=== PATIENT | male | born 1955 | race Caucasian/White ===

== ENCOUNTER 2016-10-22 12:42 | Emergency (ER) | payer OTHER ==
[~2016-10-22] VITALS: Ht 177.8 cm; Wt 93.4 kg
[~2016-10-22 12:42] MED LIST: ASPIRIN EC81 M1 PO; CLOPIDOGREL75 MG PO; DULERA1 AR1 INH; LASIX20 M1 PO; NEURONTIN300 M1 PO; POTASSIUM CHLO20 ME2 PO; PRAVASTATIN SOD40 M1 PO; RANITIDINE HCL300 M1 PO
--- NOTE | 2016-10-22 12:49 | ED DYSPNEA/ASTHMA COMPLAINT ---
History of Present Illness General Chief Complaint: Dyspnea (COPD, CHF, Other) Stated Complaint: PT HAS ASTHMA NEEDS A BREATHING TREATMENT Source: patient Exam Limitations: no limitations Vital Signs & Intake/Output Vital Signs & Intake/Output Vital Signs Date Time Temp Pulse Resp B/P Pulse O2 O2 Flow FiO2 Ox Delivery Rate 10/22 1417 116 20 155/74 98 Room Air 10/22 1310 99 10/22 1304 97 10/22 1248 97.5 140 26 168/74 96 Room Air Allergies Coded Allergies: codeine (Mild, SHAKES 09/13/16) Reconcile Medications Albuterol Sulfate (Ventolin Hfa) 90 MCG HFA.AER.AD 2 PUF INH Q4-6 PRN PRN SHORTNESS OF BREATH Aspirin (Ecotrin*) 81 MG TABLET.DR 1 TAB PO EOD HEART/BLOOD (Reported) Benzonatate (Tessalon Perle) 100 MG CAPSULE 1 CAP PO TID PRN COUGH CLOPIDOGREL BISULFATE (Clopidogrel) 75 MG TAB 1 TAB PO DAILY BLOOD THINNER ( Reported) Furosemide (Lasix) 20 MG TABLET 1 TAB PO BID SWELLING X 5 DAYS Gabapentin (Neurontin) 300 MG CAPSULE 1 CAP PO TID NERVE PAIN (Reported) Methylprednisolone. (Medrol) 4 MG TAB.DS.PK 1 DP PO AD INFLAMMATION 6 on day 1 then reduce by one tablet daily until gone MOMETASONE/FORMOTEROL (Dulera 200 Mcg/5 Mcg Inhaler) 1 SHEEBA SHEEBA 2 PUF INH BID ASTHMA (Reported) Potassium Chloride 20 MEQ TAB.ER.PRT 1 TAB PO DAILY DUE TO THE FUROSEMIDE TAKE ONE PILL A DAY WHEN TAKING THE LASIX...FOLLOW UP WITH YOUR DOCTOR THIS WEEK. Pravastatin Sodium 40 MG TAB 1 TAB PO DAILY CHOLESTEROL (Reported) Ranitidine HCl 300 MG TABLET 1 TAB PO QPM GI (Reported) Triage Note: PT TO ED STATING "I NEED A BREATHING TREATMENT". STARTED FEELING SOB LAST NIGHT. TOOK INHALER WITH NO RELIEF. Triage Nurses Notes Reviewed? yes Onset: Gradual Duration: constant Timing: recent history Severity: moderate HPI: Patient is a 61-year-old male with a past medical history of asthma who presents emergency room with a one-day history of gradual onset of shortness of breath wheezing and nonproductive cough. Patient was evaluated yesterday by primary care doctor and was given a azithromycin for his symptoms. Patient has unrelenting wheezing and shortness of breath with at home inhaler. Patient is a every day smoker. Denies any fever, chills, chest pain and arm pain jaw pain nausea vomiting hemoptysis. Patient states that symptoms feel very similar to previous asthma attacks. Denies any history of admission or intubation. (NUNU ANNA) Past History Travel History Traveled to [place] past 21 day No Medical History Any Pertinent Medical History? 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 , Age 62. FATHER (HEART CONDITION). , Age 60+. Hx Contributory? No (NUNU ANNA) Review of Systems Review of Systems Constitutional: Reports: no symptoms. EENTM: Reports: no symptoms. Respiratory: Reports: see HPI, cough, wheezing. Cardiovascular: Reports: no symptoms. GI: Reports: no symptoms. Genitourinary: Reports: no symptoms. Musculoskeletal: Reports: no symptoms. Skin: Reports: no symptoms. Neurological/Psychological: Reports: no symptoms. Hematologic/Endocrine: Reports: no symptoms. Immunologic/Allergic: Reports: no symptoms. All Other Systems: Reviewed and Negative (NUNU ANNA) Physical Exam Physical Exam General Appearance: no apparent distress, alert Respiratory: chest non-tender, no respiratory distress, wheezing Comments: Well-developed well-nourished person in no acute distress HEENT: Normal EENT exam, extraocular motion intact, no nystagmus. Pupils equally round and reactive to light and accommodation. Nose is atraumatic. External auditory canal and Tympanic membranes clear. Pharynx normal. No swelling or edema. Neck: Supple, no lymphadenopathy, normal range of motion without pain or tenderness Back: Nontender, no CVA tenderness. Cardiovascular: Regular rate and rhythms no murmurs rubs or gallops, normal JVP Respiratory: Chest nontender. No respiratory distress.breath sounds clear to auscultation bilaterally Abdomen: Soft, nontender nondistended, no appreciable organomegaly. Normal bowel sounds. No ascites Extremity: No edema, no calf tenderness to palpation, normal and equal pulses. Neuro: Alert oriented x3, motor sensory normal, Skin: No appreciable rash on exposed skin, skin is warm and dry. Psych: Mood and affect is normal, memory and judgment is normal. Core Measures ACS in differential dx? No Severe Sepsis Present: No Septic Shock Present: No (NUNU ANNA) Progress Differential Diagnosis: asthma, AMI, bronchitis, costochondritis, CHF, COPD, musculoskeletal pain, pericarditis, pulmonary embolism, pneumonia, pneumothorax, rib fracture, unstable angina Plan of Care: Current Medications Sig/Lillie Start time Last Medication Dose Stop Time Status Admin Albuterol Sulfate 3 ML ONCE ONE 10/22 1300 UNVr (Proventil) 10/22 1301 Albuterol Sulfate 3 ML ONCE ONE 10/22 1300 UNVr (Proventil) 10/22 1301 Ipratropium Germfask 2.5 ML ONCE ONE 10/22 1300 UNVr (Atrovent) 10/22 1301 Patient currently is in no respiratory distress. Oxygen saturation 98%. Patient did have bilateral wheezing in which after medications of nebulizers were administered patient had complete resolution of wheezing and felt significantly improved. On discharge patient looks well oxygen saturation 97% room air and patient was given pulmonology referral and strongly advised to follow-up. Patient was also strongly advised to discontinue smoking. No concerns at this time of pneumonia however patient was previously prescribed antibiotics which I strongly advised patient to continue (NUNU ANNA) Initial ED EKG: none (NUNU ANNA) Departure Departure Disposition: HOME OR SELF CARE Condition: Stable Clinical Impression Primary Impression: Asthma attack Secondary Impressions: Upper respiratory infection Referrals: TIM IBRAHIM,Dank TERRY MD,ROSA LAST (PCP/Family) TRACEY IBRAHIM,ABIDA Additional Instructions: As discussed begin the prescription of Medrol Dosepak tomorrow as YOU received steroids in the emergency room today. Begin the prescription of Ventolin for shortness of breath and wheezing. Begin the prescription Tessalon Perles for cough. Please discontinue smoking. Tomorrow please follow up and establish bale coverer Dr. Flores or Dank Pérez MD for further evaluation and establishment of this provider. If symptoms worsen return to emergency room. Prescriptions are waiting your [facility] continue home medications as directed especially your recently prescribed antibiotic Departure Forms: Customer Survey General Discharge Information Prescriptions: Current Visit Scripts Albuterol Sulfate (Ventolin Hfa) 2 PUF INH Q4-6 PRN PRN SHORTNESS OF BREATH #1 INHAL Benzonatate (Tessalon Perle) 1 CAP PO TID PRN COUGH #21 CAP Methylprednisolone. (Medrol) 1 DP PO AD #1 DP 6 on day 1 then reduce by one tablet daily until gone (NUNU ANNA) PA/DATA ACQUISITION TECHNICIAN Co-Sign Statement Statement: ED Attending supervision documentation- [] I saw and evaluated the patient. I have also reviewed all the pertinent lab results and diagnostic results. I agree with the findings and the plan of care as documented in the PA's/DATA ACQUISITION TECHNICIAN's documentation. [x] I have reviewed the ED Record and agree with the PA's/DATA ACQUISITION TECHNICIAN's documentation. [] Additions or exceptions (if any) to the PAs/DATA ACQUISITION TECHNICIAN's note and plan are summarized below: [] (TREY MARTE DO) Critical Care Note Critical Care Note Critical Care Time: non-applicable (NUNU ANNA)
[2016-10-22] MEDS ORDERED: VENTOLIN HFA18 GM INH (14:04)
[2016-10-22] MEDS ORDERED: TESSALON PERLE100 M1 PO (14:04)
[2016-10-22] MEDS ORDERED: MEDROL4 M2 PO (14:04)
[2016-10-22 14:17] VITALS: BP 155/74
== END 2016-10-22 14:17 ==
LOC: ERH 12:42
DX: J45.909 Unspecified asthma, uncomplicated (principal); J06.9 Acute upper respiratory infection, unspecified; Z72.0 Tobacco use
CPT/HCPCS: 1263

== ENCOUNTER 2016-12-01 14:08 | Emergency (ER) | payer OTHER ==
[~2016-12-01] VITALS: Ht 177.8 cm; Wt 79.4 kg
[~2016-12-01 14:08] MED LIST changes: +MEDROL4 M2 PO; +TESSALON PERLE100 M1 PO; +VENTOLIN HFA18 GM INH
--- NOTE | 2016-12-01 14:38 | ED GENERAL ADULT ---
History of Present Illness General Chief Complaint: General Adult Stated Complaint: ?HIGH COUMADIN LEVEL Source: patient Exam Limitations: no limitations Vital Signs & Intake/Output Vital Signs & Intake/Output Vital Signs Date Time Temp Pulse Resp B/P Pulse O2 O2 Flow FiO2 Ox Delivery Rate 12/01 1729 97.4 76 18 118/64 97 Room Air 12/01 1439 Room Air 12/01 1422 97.4 89 20 119/77 96 Room Air ED Intake and Output 12/02 0000 12/01 1200 Intake Total Output Total Balance Patient 175 lb Weight Allergies Coded Allergies: codeine (Mild, SHAKES 12/01/16) Reconcile Medications Albuterol Sulfate (Ventolin Hfa) 90 MCG HFA.AER.AD 2 PUF INH Q4-6 PRN PRN SHORTNESS OF BREATH Gabapentin (Neurontin) 300 MG CAPSULE 1 CAP PO TID NERVE PAIN (Reported) Mometasone/Formoterol (Dulera 200 Mcg/5 Mcg Inhaler) 200 MCG-5 MCG/ACTUATION HFA.AER.AD 2 PUF INH BID ASTHMA (Reported) Polytrim (Polytrim Eye Drops) 10,000 UNIT-1 MG/ML DROPS 1 GTT OPH Q6 conjunctivitis Potassium Chloride 20 MEQ TAB.ER.PRT 1 TAB PO DAILY DUE TO THE FUROSEMIDE TAKE ONE PILL A DAY WHEN TAKING THE LASIX...FOLLOW UP WITH YOUR DOCTOR THIS WEEK. Pravastatin Sodium (Pravachol) 40 MG TABLET 1 TAB PO DAILY CHOLESTEROL ( Reported) Rivaroxaban (Xarelto) 15 MG TABLET 1 TAB PO ONCE BLOOD THINNER (Reported) Warfarin Sodium 5 MG TABLET 1 TAB PO DAILY BLOOD THINNER (Reported) Triage Note: TRIAGE: PT TO ER C/C, SENT TO ER FOR EVAL BY DR SHAHID BECAUSE "MY BLOODS TOO THIN". STATES HE HAS BEEN TAKING XARELTO AND WARFARIN FOR ?DVT. HAS BEEN TAKING DAILY FOR 1-2 WEEKS. STOPPED THEM BOTH YESTERDAY R/T S/S OF BLEEDING IN L EYE, INCREASED BRUISING AND "EVERYTIME I SNEEZED INSTEAD OF MUCOUS I'D HAVE BLOOD". Triage Nurses Notes Reviewed? yes Onset: Abrupt Duration: hour(s): (1) Injury Environment: home Severity: mild No Modifying Factors: none Associated Symptoms: DENIES HPI: This is a 61-year-old male referred to the ER by his doctor for high Coumadin level and low blood counts. Patient states he's been taking both with arousal and Coumadin for the past week for suspected DVT in his leg. His primary care doctor put him on 02 twice a day and Dr. Pedersen from vascular put him on Coumadin for possible clot in the leg. He states they did an ultrasound 2 weeks ago in the office but is unsure of the result. He states his legs in general have been swollen bilaterally in the right one has been weeping. History of previous vascular surgery done over a year and a half ago. He says they put a stent in his right leg and also went in to do the left side but it was fine. Patient denies any headache, blurry vision, Past History Travel History Traveled to [place] past 21 day No Medical History Any Pertinent Medical History? 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 , Age 62. FATHER (HEART CONDITION). , Age 60+. Hx Contributory? No Review of Systems Review of Systems Constitutional: Denies: chills, fever. EENTM: Reports: eye drainage (LEFT EYE/DISCHARGE). Respiratory: Denies: cough, short of breath, sputum production. Cardiovascular: Reports: peripheral edema. Denies: chest pain, palpitations, syncope. GI: Denies: abdominal pain, nausea, vomiting. Genitourinary: Reports: no symptoms. Musculoskeletal: Denies: back pain. Skin: Denies: erythema. Neurological/Psychological: Reports: no symptoms. Hematologic/Endocrine: Denies: bruising, bleeding, polyuria, polydipsia. Immunologic/Allergic: Denies: splenectomy. All Other Systems: Reviewed and Negative Physical Exam Physical Exam General Appearance: well developed/nourished, alert, awake, mild distress Head: atraumatic, normal appearance Eyes: Left: other (LEFT EYE INJECTION/TEARING). Ears, Nose, Throat: normal pharynx, normal ENT inspection, hearing grossly normal Neck: normal inspection, supple, full range of motion Respiratory: normal breath sounds, chest non-tender, no respiratory distress Cardiovascular: regular rate/rhythm Peripheral Pulses: 2+ radial (R), 2+ radial (L), 2+ dorsalis pedis (R), 2+ dorsalis pedis (L) Gastrointestinal: soft, non-tender Extremities: 2+ EDEMA B/L, RIGHT LEG ANTERIOR DRAINING WOUNDS Neurologic/Psych: awake, alert, oriented x 3 Skin: intact, normal color, warm/dry Core Measures ACS in differential dx? No CVA/TIA Diagnosis: No Severe Sepsis Present: No Septic Shock Present: No Progress Differential Diagnoses I considered the following diagnoses in my evaluation of the patient: [DVT, CELLULITIS, VENOUS INSUFFICIENCY ] Plan of Care: Orders Procedure Date/time Status PARTIAL THROMBOPLASTIN TIME 12/01 145 Complete PROTHROMBIN TIME 12/01 145 Complete COMPREHENSIVE METABOLIC PANEL 12/01 145 Complete CBC WITHOUT DIFFERENTIAL 12/01 145 Complete Laboratory Tests 12/01/16 1708: Anion Gap 12, Estimated GFR > 60, BUN/Creatinine Ratio 6.7 L, Glucose 89, Calcium 9.2, Total Bilirubin 0.5, AST 38, ALT 21, Alkaline Phosphatase 101, Total Protein 7.4, Albumin 3.4 L, Globulin 4.0, Albumin/Globulin Ratio 0.9 L 12/01/16 1707: PT 102.4 *H, INR 9.98 *H, APTT 75 H, CBC w Diff NO MAN DIFF REQ, RBC 4.70, MCV 95.2 H, MCH 31.5 H, RDW 15.2 H, MPV 7.5, Gran % 61.9, Lymphocytes % 26.8, Monocytes % 7.8, Eosinophils % 2.3, Basophils % 1.2, Absolute Granulocytes 5.4, Absolute Lymphocytes 2.3, Absolute Monocytes 0.7 H, Absolute Eosinophils 0.2, Absolute Basophils 0.1, PUBS MCHC 33.1 U/S POSITIVE FOR LEFT LEG DVT FROM CF TO POLITEAL. INR 9.9, NO ACTIVE SIGNS OF BLEEDING. LABS DISCUSSED WITH DR THOMAS. VITAMIN 5 MG PO ORDERED. HE WILL FOLLOW UP WITH INR TOMORROW FROM OUT PATIENT LAB AND DR THOMAS WILL DIRECTE HIS ANTICOAGULATION THERAPY. (DANIELLE IBRAHIM,FIOR) Diagnostic Imaging: Viewed by Me: Ultrasound. Discussed w/RAD: Ultrasound. Radiology Impression: PATIENT: MCKAY BECKMAN PRESENT AGE: 61 PATIENT ACCOUNT NO: [id number] : 59 LOCATION: [facility] ORDERING PHYSICIAN: FIOR MIKE MD SERVICE DATE: 12/01/16 EXAM TYPE: US - US-EXT BILAT VENOUS DOPPLER EXAMINATION: BILATERAL LOWER EXTREMITY VENOUS ULTRASOUND CLINICAL INFORMATION: Bilateral lower extremity edema. COMPARISON: None TECHNIQUE: Doppler spectral analysis and color flow Doppler imaging was performed of the lower extremities. Compression and augmentation maneuvers were performed. FINDINGS: RIGHT LOWER EXTREMITY: The right common femoral vein, greater saphenous vein takeoff, femoral vein, and popliteal vein are normally compressible with normal augmentation responses and phasic changes seen with Doppler imaging. The midcalf peroneal and posterior tibial veins are not adequately visualized. Prominent soft tissue swelling is seen in the calf. No popliteal cyst is seen. LEFT LOWER EXTREMITY: The left common femoral vein down to the popliteal vein demonstrates low-level internal echoes and is noncompressible with only small amounts of flow demonstrated with color Doppler imaging. Findings are consistent with a nonocclusive extensive deep venous thrombosis. Calf veins are partially visualized and visualized portions appear patent. IMPRESSION: 1. Near occlusive long segment deep venous thrombosis is seen in the left lower extremity, extending from the common femoral vein down to the popliteal vein. 2. No evidence of deep venous thrombosis in the right lower extremity. 3. Calf veins bilaterally are not adequately assessed. This critical result was discussed with Dr. Fior Mike 12/01/2016, 4:48 PM and it was ascertained that the content and urgency of this report was understood at the time of direct communication. DICTATED BY: MILTON SU MD DATE/TIME DICTATED:12/01/161618 DATA ENTRY ASSISTANT:BIJAN DATE/TIME TRANSCRIBED:1618 CONFIDENTIAL, DO NOT COPY WITHOUT APPROPRIATE AUTHORIZATION. < Electronically signed in Other Vendor System> SIGNED BY: MILTON SU MD 12/01/16 1652 Initial ED EKG: none Departure Departure Time of Disposition: 1808 Disposition: HOME OR SELF CARE Condition: Stable Clinical Impression Primary Impression: DVT (deep venous thrombosis) Referrals: TOYIN SHAHID APRN (PCP/Family) Additional Instructions: Do not take either warfarin or xarelto today. Check your INR in the lab tomorrow. Dr. Thomas's office will call you tomorrow to further instruct you on which medications tomorrow. Departure Forms: Customer Survey General Discharge Information Prescriptions: Current Visit Scripts Polytrim (Polytrim Eye Drops) 1 GTT OPH Q6 #10 ML Critical Care Note Critical Care Note Critical Care Time: 30-74 min
[2016-12-01] MEDS ORDERED: XARELTO15 M2 PO (14:45)
[2016-12-01] MEDS ORDERED: WARFARIN SODIUM5 M1 PO (14:47)
[2016-12-01] MEDS ORDERED: DULERA 200 MCG/13 GM INH (14:55)
[2016-12-01] MEDS ORDERED: PRAVACHOL40 M1 PO (14:56)
--- NOTE | 2016-12-01 16:53 | ULTRASOUND REPORT ---
EXAMINATION: BILATERAL LOWER EXTREMITY VENOUS ULTRASOUND CLINICAL INFORMATION: Bilateral lower extremity edema. COMPARISON: None TECHNIQUE: Doppler spectral analysis and color flow Doppler imaging was performed of the lower extremities. Compression and augmentation maneuvers were performed. FINDINGS: RIGHT LOWER EXTREMITY: The right common femoral vein, greater saphenous vein takeoff, femoral vein, and popliteal vein are normally compressible with normal augmentation responses and phasic changes seen with Doppler imaging. The midcalf peroneal and posterior tibial veins are not adequately visualized. Prominent soft tissue swelling is seen in the calf. No popliteal cyst is seen. LEFT LOWER EXTREMITY: The left common femoral vein down to the popliteal vein demonstrates low-level internal echoes and is noncompressible with only small amounts of flow demonstrated with color Doppler imaging. Findings are consistent with a nonocclusive extensive deep venous thrombosis. Calf veins are partially visualized and visualized portions appear patent. IMPRESSION: 1. Near occlusive long segment deep venous thrombosis is seen in the left lower extremity, extending from the common femoral vein down to the popliteal vein. 2. No evidence of deep venous thrombosis in the right lower extremity. 3. Calf veins bilaterally are not adequately assessed. This critical result was discussed with Dr. Fior Mike 12/01/2016, 4:48 PM and it was ascertained that the content and urgency of this report was understood at the time of direct communication.
[2016-12-01 17:18] LABS: ABSOLUTE BASOPHIL COUNT 0.1 /CUMM (0.0-0.2); ABSOLUTE EOSINOPHIL COUNT 0.2 /CUMM (0.0-0.7); ABSOLUTE GRANULOCYTE CT 5.4 /CUMM (1.4-6.5); ABSOLUTE LYMPH COUNT 2.3 /CUMM (1.2-3.4); ABSOLUTE MONOCYTE COUNT 0.7 /CUMM (0.10-0.60); BASOPHIL % 1.2 % (0.0-2.0); EOSINOPHIL % 2.3 % (0-5); GRANULOCYTE % 61.9 % (42.2-75.2); HEMATOCRIT 44.7 % (42-52); MEAN CORPUSCULAR HGB 31.5 PG (27.0-31.0); MEAN CORPUSCULAR HGB CONC 33.1 G/DL (33.0-37.0); MEAN CORPUSCULAR VOLUME 95.2 FL (80.0-94.0); MEAN PLATELET VOLUME 7.5 FL (7.4-10.4); PLATELET COUNT 252 /CUMM (130-400); RBC DISTRIBUTION WIDTH 15.2 % (11.5-14.5); WHITE BLOOD CELL COUNT 8.7 /CUMM (4.8-10.8)
[2016-12-01 17:29] VITALS: BP 118/64
[2016-12-01 17:30] LABS: PTT 75 SEC (25-37)
[2016-12-01 17:34] LABS: PT 102.4 SEC (9.4-12.5)
[2016-12-01] MEDS ORDERED: POLYTRIM EYE DR10 ML OPH (18:17)
== END 2016-12-01 18:18 ==
LOC: ERH 14:08
PROVIDERS: Emergency Medicine
DX: I82.412 Acute embolism and thrombosis of left femoral vein (principal); I82.432 Acute embolism and thrombosis of left popliteal vein
CPT/HCPCS: 93970

== ENCOUNTER 2017-02-02 17:37 | Inpatient (IN) | payer OTHER ==
[~2017-02-02] VITALS: Ht 177.8 cm; Wt 87.5 kg
[~2017-02-02 17:37] MED LIST changes: +DULERA 200 MCG/13 GM INH; +POLYTRIM EYE DR10 ML OPH; +PRAVACHOL40 M1 PO; +WARFARIN SODIUM5 M1 PO; +XARELTO15 M2 PO
--- NOTE | 2017-02-02 17:37 | NUR ---
BIBA FOR VOMITING COFFEE GROUND EMEMSIS AND TARRY STOOLS. PT ON COUMADIN FOR DVT. LAST INR CHECK 2 WEEKS AGO. SINCE THEN PT WITH ABNORMAL BRUISING AND BLEEDING ON SKIN ALL OVER BODY. AWAKE, ALERT, SKIN COOL AND DRY. DENIES PAIN OR SOB. TACHYCARDIC AT 101.
--- NOTE | 2017-02-02 17:44 | ED GI/GU/ABDOMINAL COMPLAINT ---
History of Present Illness General Chief Complaint: General Adult Stated Complaint: BIBA WITH GI BLEED Source: patient, old records, EMS Exam Limitations: no limitations Vital Signs & Intake/Output Vital Signs & Intake/Output Vital Signs Date Time Temp Pulse Resp B/P B/P Pulse O2 O2 Flow FiO2 Mean Ox Delivery Rate 02/08 0800 90 Nasal 100% Cannula 02/08 0750 93 95 02/08 0600 98 32 128/65 02/08 0558 98 92 02/08 0400 96 27 123/69 / 0400 96 BIPAP 75% 02/08 0307 94 91 / 0200 98 28 97/70 02/08 0103 101 91 05/15 0000 96.9 98 30 136/76 05/15 0000 92 Nasal 85% Cannula /15 0000 96.9 98 30 136/76 92 Nasal 85% Cannula /15 0000 92 Nasal 85% Cannula /14 2356 97 94 /14 2148 89 95 /14 2031 97.6 103 26 120/64 / 2031 95 Nasal 85% Cannula /14 1925 94 Nasal 85% Cannula 05/14 1615 94 Nasal 80% Cannula 05/14 1600 Nasal 85% Cannula 05/14 1600 97.5 97 20 110/54 05/14 1600 97.5 97 20 110/54 95 Nasal 85% Cannula 05/14 1450 94 Nasal 85% Cannula 05/14 1400 100 22 114/66 05/14 1200 Nasal 90% Cannula 05/14 1200 98.2 107 22 100/50 05/14 1138 88 Nasal 90% Cannula 05/14 1000 100 22 123/61 ED Intake and Output /15 0000 14 1200 Intake Total 1796 200 Output Total 1850 325 Balance -54 -125 Intake, IV 476 100 Intake, Oral 1320 100 Number 0 Bowel Movements Output, Urine 1850 325 Allergies Coded Allergies: codeine (Mild, SHAKES 12/01/16) Triage Nurses Notes Reviewed? yes HPI: Patient is a 61 year old male brought in by ambulance with complaint of GI bleed. 2 episodes of coffee ground emesis and approximately 5 episodes of black stool onset this morning. Patient currently on coumadin for treatment of DVT. Drinks 3-5 beers daily. Dyspnea with exertion today. Denies chest pain, abdominal pain, dyspepsia, previous upper endoscopy. (AIXA MCGEE) Reconcile Medications Albuterol Sulfate (Ventolin Hfa) 90 MCG HFA.AER.AD 2 PUF INH Q4-6 PRN PRN SHORTNESS OF BREATH Gabapentin (Neurontin) 300 MG CAPSULE 1 CAP PO TID NERVE PAIN (Reported) Mometasone/Formoterol (Dulera 200 Mcg/5 Mcg Inhaler) 200 MCG-5 MCG/ACTUATION HFA.AER.AD 2 PUF INH BID ASTHMA (Reported) Pravastatin Sodium (Pravachol) 40 MG TABLET 1 TAB PO DAILY CHOLESTEROL ( Reported) Ranitidine HCl 300 MG TABLET 1 TAB PO QPM GI (Reported) Warfarin Sodium (Jantoven) 7.5 MG TABLET 1 TAB PO DAILY BLOOD THINNER ( Reported) (DANIELLE IBRAHIM,ELKE) Past History Travel History Traveled to [place] past 21 day No Medical History Any Pertinent Medical History? 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 , Age 62. FATHER (HEART CONDITION). , Age 60+. Hx Contributory? No (AIXA MCGEE) Review of Systems Review of Systems Constitutional: Reports: weakness. Denies: chills, fever. EENTM: Reports: no symptoms. Respiratory: Reports: short of breath. Denies: cough. Cardiovascular: Reports: peripheral edema (chronic). Denies: chest pain. GI: Reports: see HPI. Denies: abdominal pain. Genitourinary: Reports: no symptoms. Musculoskeletal: Reports: no symptoms. Skin: Reports: no symptoms. Neurological/Psychological: Denies: headache, numbness. Hematologic/Endocrine: Reports: bruising, bleeding. Immunologic/Allergic: Denies: splenectomy. (AIXA MCGEE) Physical Exam Physical Exam General Appearance: alert, awake Head: atraumatic, normal appearance Eyes: Bilateral: other (pale conjunctiva). Ears, Nose, Throat, Mouth: hearing grossly normal, moist mucous membrane Neck: normal inspection, supple, full range of motion Respiratory: normal breath sounds, chest non-tender, no respiratory distress, lungs clear Cardiovascular: mild tachycardia, regular rhythm Peripheral Pulses: 2+ dorsalis pedis (R), 2+ dorsalis pedis (L) Gastrointestinal: soft, non-tender Rectal: minimal stool in the rectal vault, dark brown, heme positive Back: normal inspection, normal range of motion Extremities: 2+ bilateral lower extremity Neurologic/Psych: awake, alert, oriented x 3 Skin: pallor Core Measures ACS in differential dx? No Severe Sepsis Present: No Septic Shock Present: No (VAUGHN AMADO,AIXA) Physical Exam Peripheral Pulses: 2+ radial (R), 2+ radial (L) Neurologic/Psych: no motor/sensory deficits, awake, alert, oriented x 3 Skin: ecchymotic areas on extremities, chest/abdomen (DANIELLE IBRAHIM,ELKE) Progress Differential Diagnosis: upper vs lower gi bleed, alcohol withdrawal, electrolyte abnormality, demand ischemia Plan of Care: Orders Procedure Date/time Status XRY-PORTABLE CHEST XRAY 02/08 0840 Active ICU LAB BUNDLE 02/08 0500 Complete CBC WITHOUT DIFFERENTIAL 02/08 0500 Complete Skin Integrity Protocol 02/08 0225 Complete Nursing Misc 02/08 UNK Active Meyer, Insertion/Removal/Asses 02/07 1236 Active RT RE-EVALUATION 02/07 UNK Complete THERAPIST ORDERS 02/07 UNK Complete BIPAP 02/07 UNK Complete Nursing Misc 02/07 UNK Active Current Medications Sig/Lillie Start time Last Medication Dose Stop Time Status Admin Potassium Chloride 40 MEQ DAILY 02/08 1000 AC (K-Dur) Sodium Phosphate 15 mMol ONE ONE 02/08 0715 AC (SODIUM PHOSPHATE 02/08 1118 15mMol\5cc) Sodium Chloride 250 ML (Normal Saline 0.9%) Furosemide 100 MG Q20H 02/07 1230 AC 02/08 (Lasix) 0204 Sodium Chloride 100 ML (Normal Saline 0.9%) Albuterol Sulfate 3 ML EVERY 4 HRS/AWAKE 02/07 1200 AC 02/08 (Proventil) 0757 Folic Acid 1 MG DAILY 02/07 1000 AC 02/07 (Folic Acid) 0956 Multivitamins 1 TAB DAILY 02/07 1000 AC 02/07 (Theragran Vitamins) 0956 Thiamine HCl 50 MG DAILY 02/07 1000 AC 02/07 (Vitamin B1) 0956 Omeprazole 20 MG BID 02/06 2200 AC 02/07 (Prilosec) 2118 Ampicillin Sodium/ 1,500 MG Q6H 02/06 2100 AC 02/08 Sulbactam Sodium 0301 (Unasyn) Sodium Chloride 100 ML (Normal Saline 0.9%) Magnesium Oxide 400 MG BID 02/06 1000 AC 02/07 (Mag-Ox) 2118 Methylprednisolone 40 MG Q6 02/05 2359 AC 02/08 (Solumedrol) 0546 Benzonatate 100 MG TID 02/05 1745 AC 02/07 (Tessalon Capsule) 2118 Tiotropium [place] 1 PUF DAILY 02/05 1208 AC 02/07 (Spiriva) 0956 Pravastatin Sodium 40 MG 1700 02/04 1700 AC 02/07 (Pravachol) 1551 Budesonide/ 2 PUF BID 02/03 1000 AC 02/07 Formoterol Fumarate 2130 (Symbicort) Albuterol Sulfate 2 PUF Q4-6 PRN PRN 02/03 0645 AC 02/04 (Ventolin) 2320 Gabapentin 300 MG Q8 02/03 0620 AC 02/08 (Neurontin) 0546 Acetaminophen 650 MG Q6P PRN 02/03 2000 AC 02/07 (Tylenol) 1136 Acetaminophen 1,000 MG Q6P PRN 02/03 2000 AC (Ofirmev) Laboratory Tests 02/08/17 0520: Anion Gap 8, Estimated GFR > 60, Glucose 124 H, Calcium 7.3 L, Phosphorus 1.7 L, Magnesium 1.8, Total Bilirubin 0.8, AST 34, ALT 35, Albumin 2.4 L, CBC w Diff NO MAN DIFF REQ, RBC 3.19 L, MCV 83.8, MCH 26.5 L, RDW 19.5 H, MPV 9.0, Gran % 91.6 H, Lymphocytes % 3.1 L, Monocytes % 5.1, Eosinophils % 0.2, Basophils % 0 L, Absolute Granulocytes 10.1 H, Absolute Lymphocytes 0.3 L, Absolute Monocytes 0.6, Absolute Eosinophils 0, Absolute Basophils 0, PUBS MCHC 31.6 L 175: Discussed with and seen by Dr. Mike 1819: Discussed with Dr. Montero: patient needs admission, have medical team call him on admission. 183: Results of CBC discussed with patient. Consent for transfusion signed after discussion of risks and benefits. 3 units PRBC ordered. 1839: Dr. Mike discussed patient with Dr. Hill for ICU admission. Vitamin K and FFP ordered secondary to elevated INR. MOD made aware of patient. (AIXA MCGEE) Patient seen and examined with INGRIS Haines at bedside. Blood, vitamin K, FFP ordered. Patient is on a Protonix drip. He will remain nothing by mouth. Dr. Hill admitting. MOD paged. (ELKE MIKE MD) Initial ED EKG: sinus tachycardia, normal axis, normal intervals, no acute st/t wave abnormalities. Rhythm Strip: sinus tachycardia (AIXA MCGEE) Departure Departure Disposition: STILL A PATIENT Condition: Critical Clinical Impression Primary Impression: GI bleed Qualifiers: GI bleed type/associated pathology: unspecified gastrointestinal hemorrhage type Qualified Code: K92.2 - Gastrointestinal hemorrhage, unspecified Referrals: TOYIN SHAHID APRN (PCP/Family) Departure Forms: Customer Survey General Discharge Information (AIXA MCGEE) Departure Time of Disposition: 1842 Admission Note [facility] Documentation of Exam: Documentation of any treatments & extenuating circumstances including Concerns Regarding Discharge (functional status, medication knowledge or non-compliance, living conditions, etc.) that warrant an admission rather than observation: [ICU MONITOR, IV PROTONIX, FLUID RESUSSCITATION, TRANSFUSE BLOOD, FFP, VITAMIN K, GI CONSULT FOR POSSIBLE URGENT ENDOSCOPY] PA/ONCOLOGY NAVIGATOR Co-Sign Statement Statement: ED Attending supervision documentation- [X] I saw and evaluated the patient. I have also reviewed all the pertinent lab results and diagnostic results. I agree with the findings and the plan of care as documented in the PA's/ONCOLOGY NAVIGATOR's documentation. [X] I have reviewed the ED Record and agree with the PA's/ONCOLOGY NAVIGATOR's documentation. [] Additions or exceptions (if any) to the PAs/ONCOLOGY NAVIGATOR's note and plan are summarized below: [] (ELKE MIKE MD) Critical Care Note Critical Care Note Critical Care Time: 30-74 min (AIXA MCGEE)
[2017-02-02] MEDS ORDERED: RANITIDINE HCL300 M1 PO (18:01)
[2017-02-02] MEDS ORDERED: CLOPIDOGREL75 M1 PO (18:01)
[2017-02-02] MEDS ORDERED: JANTOVEN7.5 M1 PO (18:02)
--- NOTE | 2017-02-02 18:10 | NUR ---
DR DANIELLE PEREZ IN TO ASSESS PT. TWO IV LINES PLACED. PT DIFFICULT IV STICK DUE TO BRUISING/BLEEDING ON BOTH ARMS.
--- NOTE | 2017-02-02 18:15 | NUR ---
LABS DRAWN SST, BLUE, REYES. LAV AND PINK. IVF BOLUS STARTED
[2017-02-02 18:29] LABS: ABSOLUTE BASOPHIL COUNT 0.1 /CUMM (0.0-0.2); ABSOLUTE EOSINOPHIL COUNT 0 /CUMM (0.0-0.7); ABSOLUTE GRANULOCYTE CT 7.6 /CUMM (1.4-6.5); ABSOLUTE LYMPH COUNT 1.8 /CUMM (1.2-3.4); ABSOLUTE MONOCYTE COUNT 0.6 /CUMM (0.10-0.60); BASOPHIL % 0.9 % (0.0-2.0); EOSINOPHIL % 0 % (0-5); GRANULOCYTE % 75.1 % (42.2-75.2); MEAN CORPUSCULAR HGB 25.5 PG (27.0-31.0); MEAN CORPUSCULAR HGB CONC 31.8 G/DL (33.0-37.0); MEAN PLATELET VOLUME 8.1 FL (7.4-10.4); PLATELET COUNT 259 /CUMM (130-400); RBC DISTRIBUTION WIDTH 23.3 % (11.5-14.5); RED BLOOD CELL CT 2.09 /CUMM (4.70-6.10); WHITE BLOOD CELL COUNT 10.1 /CUMM (4.8-10.8)
[2017-02-02 18:32] LABS: HEMATOCRIT 16.7 % (42-52)
--- NOTE | 2017-02-02 18:33 | NUR ---
CRITICAL TEST RESULTS [id number] MCKAY BECKMAN 61 M TESTS AND RESULTS: HEMOGLOBIN 5.3 HEMATOCRIT 16.7 Results received and read back by: KAMALJIT SOLIS Results received date and time: 02/02/17 1834 The following provider was notified of the results, and read the results back: INGRIS MENDES Notified date and time: 02/02/17 at 1834
[2017-02-02 18:39] LABS: PT > 103.0 SEC (9.4-12.5)
--- NOTE | 2017-02-02 18:42 | NUR ---
LABS RESULTED. PT TO GET 3 UNITS PRBC AND PLASMA FOR LOW HCT AND ELEVATED INR. PT ON PROTONIX GTT
--- NOTE | 2017-02-02 18:46 | NUR ---
PT WITH BRUISING AND BLEELDING ON MULTIPLE SPOTS ALL OVER BODY, LEFT FORE ARM WITH SEVERE BRUISING. RIGHT UPPER ARM WITH PETECHIA THAT ARE DIFFUSE AND OOZING SMALL AMOUNT OF BLOOD. BLEEDING NOTED FROM A FEW SPOTS ON LEGS. PT WITH DRIED CRUSTED BANDAIDS OVER THESE SPOTS AND CONTINUES TO OOZE AROUND BANDAIDS
--- NOTE | 2017-02-02 18:52 | NUR ---
LAB IN TO DRAWN ABO CONFIRMATION. BLEEDING/BRUISES ON BILATERAL ARMS DRESSED WITH XERFORM AND GAUZE WRAPS
--- NOTE | 2017-02-02 19:07 | NUR ---
HOUSE STAFF IN TO SEE PT
--- NOTE | 2017-02-02 19:46 | History & Physical ---
JEREMIAS CALLAHAN 02/02/171945: General Information and HPI MD Statement: I have seen and personally examined MCKAY BECKMAN and documented this H&P. The patient is a 61 year old M who presented with a patient stated chief complaint of GI bleed. Source of Information: patient, EMS Exam Limitations: no limitations History of Present Illness: Patient is a 61-year-old gentleman with a past medical history significant for asthma, DVT(on Coumadin), dyslipidemia, alcohol abuse presented to the ED through ambulance for the evaluation of coffee-ground emesis with dark stools. Patient was diagnosed with right approximately DVT in August 2015 , apparently had a vascular surgery at that time(? thrombectomy/stent -scar to his right leg without any IVC filter placement. He was prescribed, xarelto by his primary care physician and was also started on Coumadin by his vascular surgeon(who apparently did not know that patient was also taking xeralto). Patient took xeralto and Coumadin both for almost 1-2 weeks. Then he started having nosebleeds associated with skin bruises. He was sent to the ER by his primary care physician, Doppler venous ultrasound revealed left-sided DVT. INR was supratherapeutic, Coumadin was held .He was again seen by his primary care physician stopped the Xarelto. Last INR was checked about 3 weeks ago that was normal. Coumadin was continued afterwards. Patient mentioned that he has been abnormal bleeding through superficial cuts on the skin and bruising for almost 2-3 weeks now .Today he had 2 episodes of coffee-ground emesis associated with 5 episodes of dark stools,. Denied any nausea/abdominal discomfort. Denied any diarrhea or constipation. The symptoms are associated with slight shortness of breath without any chest discomfort or palpitations. Denied any dizziness or lightheadedness. Patient was concerned about his symptoms and called EMS. Patient never had endoscopy or colonoscopy before. Of the note, patient has a history of chronic alcohol abuse drinks about 2-3 beers on daily basis. He was hospitalized in [facility] 2013 for alcohol abuse and withdrawal was on Ativan drip in the ICU. Patient is a current every day. smoker denied any illicit drug use In the ED patient was found to be severely anemic with an H&H of 5.3/16 without active signs of complete. INR was supratherapeutic, more than 10. Allergies/Medications Allergies: Coded Allergies: codeine (Mild, SHAKES 12/01/16) Home Med list Albuterol Sulfate (Ventolin Hfa) 90 MCG HFA.AER.AD 2 PUF INH Q4-6 PRN PRN SHORTNESS OF BREATH Gabapentin (Neurontin) 300 MG CAPSULE 1 CAP PO TID NERVE PAIN (Reported) Mometasone/Formoterol (Dulera 200 Mcg/5 Mcg Inhaler) 200 MCG-5 MCG/ACTUATION HFA.AER.AD 2 PUF INH BID ASTHMA (Reported) Pravastatin Sodium (Pravachol) 40 MG TABLET 1 TAB PO DAILY CHOLESTEROL ( Reported) Ranitidine HCl 300 MG TABLET 1 TAB PO QPM GI (Reported) Warfarin Sodium (Jantoven) 7.5 MG TABLET 1 TAB PO DAILY BLOOD THINNER ( Reported) Past History Travel History Traveled to [place] past 21 day No Medical History Neurological: peripheral neuropathy EENT: NONE Cardiovascular: hyperlipidemia Respiratory: asthma Gastrointestinal: NONE Hepatic: NONE Renal: NONE Musculoskeletal: NONE Psychiatric: alcohol dependence Endocrine: NONE Blood Disorders: DVT Cancer(s): NONE 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 , Age 62. FATHER (HEART CONDITION). , Age 60+. Psychosocial History ETOH Use: heavy use Review of Systems Review of Systems Constitutional: Reports: chills. Denies: diaphoresis, fever, malaise. EENTM: Denies: blurred vision, double vision, visual changes. Cardiovascular: Denies: chest pain, edema, orthopena. Respiratory: Reports: short of breath. Denies: cough, hemoptysis, orthopnea. GI: Reports: melena, vomiting. Genitourinary: Denies: discharge, dysuria, frequency. Musculoskeletal: Denies: back pain, gout, joint pain. Skin: Denies: cysts, change in skin color, change in hair/nails. Neurological/Psychological: Denies: ataxia, cognitive dysfunction, confusion, dementia. Hematologic/Endocrine: Denies: bruising, bleeding, polyuria. Exam & Diagnostic Data Last 24 Hrs of Vital Signs/I&O Vital Signs Date Time Temp Pulse Resp B/P B/P Pulse O2 O2 Flow FiO2 Mean Ox Delivery Rate 05/09 2028 99.0 117 22 99/54 99 Room Air 02/02 1907 98.4 104 18 124/67 99 Nasal 2.0L Cannula 02/02 1845 Nasal 2.0L Cannula 02/02 1745 99.4 101 18 113/60 100 Nasal 2.0L Cannula Physical Exam General Appearance Alert, Oriented X3 Skin No Rashes, No Breakdown Skin Temp/Moisture Exam: Warm/Dry Sepsis Skin Exam (color): Pale Neck Supple, No JVD, No thryomegaly Lymphatic Axillary nl, Cervical nl Cardiovascular Regular Rate, Normal S1, Normal S2 Lungs Clear to Auscultation Abdomen Normal Bowel Sounds, Soft, No Tenderness, No Hepatospenomegaly Neurological Normal Speech, Strength at 5/5 X4 Ext, Normal Tone Extremities No Clubbing, No Cyanosis, No Edema Vascular Normal Pulses Last 24 Hrs of Labs/Rahat: Laboratory Tests 02/02/17 1810: Anion Gap 13, Estimated GFR > 60, BUN/Creatinine Ratio 18.3, Glucose 99, Calcium 8.0 L, Magnesium 1.9, Total Bilirubin 0.6, AST 42, ALT 22, Alkaline Phosphatase 72, Troponin I 0.01, Total Protein 5.6 L, Albumin 2.5 L, Globulin 3.1, Albumin /Globulin Ratio 0.8 L, PT > 103.0 *H, INR > 10.0 *H, CBC w Diff NO MAN DIFF REQ , RBC 2.09 L, MCV 80.0, MCH 25.5 L, RDW 23.3 H, MPV 8.1, Gran % 75.1, Lymphocytes % 18.2 L, Monocytes % 5.8, Eosinophils % 0, Basophils % 0.9, Absolute Granulocytes 7.6 H, Absolute Lymphocytes 1.8, Absolute Monocytes 0.6, Absolute Eosinophils 0, Absolute Basophils 0.1, PUBS MCHC 31.8 L, Serum Alcohol 35.0 Diagnostic Data EKG Results Sinus tachycardia heart rate in the range of 100s without any significant ST/T changes Assessment/Plan Assessment: This is a is a 61-year-old gentleman with a past medical history significant for asthma, DVT(on Coumadin, was on xeralto before), dyslipidemia, alcohol abuse presented to the ED through ambulance for the evaluation of coffee-ground emesis with dark stools. In the ED patient was found to be severely anemic with an H&H of 5.3/16 without active signs of complete. INR was supratherapeutic, more than 10. Vitals admission: Temperature 98.4, pulse 101, respiratory rate 18, blood pressure 113/60, Saturating more than 92% on 2 L. Assessment and plan: 1. Acute blood loss anemia (likely upper GI bleed )in the setting of supratherapeutic INR-sever coagulopathy from coumadin : * We'll admit the patient to critical care unit * We'll transfuse him 2 units of packed RBC and then recheck the CBC at around midnight. * At the same time we'll transfuse him fresh frozen plasma and recheck INR . * Will change GI consult has been obtained as per recommendations, we'll keep the patient nothing by mouth for now, hold off INR should be around 3. Patient will likely have endoscopy tomorrow once the INR normalizes. * We will do serial CBC and INR, goal of hematocrit is 21. * Obtain Doppler venous ultrasound in the morning .Obtain vascular surgery consult in the a.m. for possible thrombectomy and consideration of IVC filter. * Check orthostats * Continue with IV hydration * Watch for any hemodynamic stability. * Aspiration precautions * Will notify GI in case overt signs of bleed 2. History of significant alcohol abuse: * Will give one banana bag * Urine toxicology's. * We will monitor him on CIWA scale. 3. History of asthma * Continue TRC nebs and home inhalers * DVT prophylaxis with Alps [id number] pain controlled with Tylenol Patient is full code As Ranked By This Provider Problem List: 1. GI bleed Qualifiers GI bleed type/associated pathology: unspecified gastrointestinal hemorrhage type Qualified Code: K92.2 - Gastrointestinal hemorrhage, unspecified Core Measures/Miscellaneous Acute Coronary Syndrome ACS Diagnosis: No Cerebrovascular Accident CVA/TIA Diagnosis: No Congestive Heart Failure CHF Diagnosis: No Venous Thromboembolism VTE Risk Factors: Acute medical illness, Age > 40 [facility] prophylaxis d/t: No contraindications No VTE Pharm Prophylaxis d/t: Blood coag disorder VTE Diagnosis: No VTE Type: NONE VTE Confirmed by (Test): NONE Severe Sepsis Severe Sepsis Present: No Septic Shock Septic Shock Present: No Miscellaneous Documentation Attending Case Discussed With: NIKOS BOCANEGRA MDJohnathon Primary Care Physician: TOYIN SHAHID APRN Patient sees these Specialists Dr. Hernandez Level of Patient Care: Critical Care (CRI) Resident Review Statement Resident Statement: examined this patient, discussed with internet application developer, agreed with internet application developer DALJIT IBRAHIM, DWAYNE 02/02/172000: Attending MD Review Statement Attending Statement Attending MD Statement: examined this patient, discuss w/resident/PA/BIOCHEMISTRY TEACHER, agreed w/resident/PA/BIOCHEMISTRY TEACHER Attending Assessment/Plan: 61 yo M with smoker, h/o asthma, dyslipidemia, alcohol abuse, alcohol withdrawal seizure, neuropathy, last admitted to [place] November 2012 for alcohol withdrawal seizure requiring ICU admission and ativan drip, comes in today with c/o multiple episodes of coffee-ground emesis and black tarry stools. c/o dyspnea on exertion but attributes it to this asthma. c/o easy bruising over bilateral arms and forehead. Denies chest pain, palpitations, lightheadedness or abdominal pain. He was diagnosed with right LE DVT (2014) and underwent ?thrombectomy/?stent ( huge scar to his right leg, no IVC filter). He was not on AC then. He was seen in ER (Aug 2016) for LE edema (weeping lesions to right de santiago), placed on lasix. Outpatient ultrasound was ?inconclusive, his PCP placed him on Xarelto and Vascular Dr. De Santiago initiated coumadin. Patient took both for 1-2 weeks but developed nosebleed/ bruises, seen in ER again on December 01, noted to have INR 9.98. LE doppler showed near occlusive DVT in LLE from common femoral to popliteal vein. He was asked to recheck INR and resume coumadin but discontinue xarelto and plavix/aspirin. He continues to drink couple of beers atleast 3 times a week and denies recent detox or withdrawal seizure. He has never seen a GI doctor or undergone EGD or colonoscopy. He denies use of NSAIDs/aspirin/motrin. He denies heartburn, hematochesia or BRBPR. No further bleeding episodes while in the ER. Vitals: Tmax 99.4, tachycardic to 110, BP 124/67 --> 99/54, sats 99% RA. Exam: AAO, pallor+, no respiratory distress, Chest b/l clear, Heart S1S2 regular, tachycardic, Abd soft, distended, nontender, LE: large scar noted to right LE medial aspect, right de santiago erythema with scab (chronic), trace pedal edema. Rectal exam done in ER: dark brown heme positive stool. Labs: WBC 10.1, H/H 5.3/ 16.7 (14.8/44.7 on 12/01/16), INR >10, Na 131, bicarb 16, LFTs normal, trop neg. UA clear. Utox neg. Alcohol 35. EKG: Sinus tachycardia, Qtc 454. Echo (2007): EF > 60%. 1. Acute blood loss anemia in the setting of upper GI bleeding and warfarin induced coagulopathy. ICU admission, vitals Q1 hour, aspiration precautions, guaiac all stools, check orthostats, transfuse 2 units PRBCs to a goal Hct of > 21, reverse INR with vitamin K and FFPs to goal INR < 3.0. IV pantoprazole drip, keep NPO, IV fluids, monitor hemodynamic status. GI (Dr. Montero) consulted, will notify him of any changes overnight. Possible plan for EGD in AM. [facility] consult (Dr. Pérez seen patient). Serial EKG and troponin. 2. Recurrent DVT. Now with supratherapeutic INR and GI bleed while on coumadin. Will obtain LE dopplers in AM and consult Vascular for eventual need for ? thrombectomy vs. IVC filter. 3. Alcohol dependence. Monitor for withdrawal. CIWA protocol, banana bag, NPO, IV ativan PRN per CIWA. Smoking cessation counseling, nicotine patch. DVT ppx Alps. Full code. TTS > 55 mins
--- NOTE | 2017-02-02 19:46 | Cons- CRCU ---
JEREMIAS CALLAHAN 02/02/17 1946: General Information and HPI Consulting Request Date of Consult: 02/02/17 Reason for Consult: GI BLEED Source of Information: patient Exam Limitations: no limitations History of Present Illness: Patient is a 61-year-old gentleman with a past medical history significant for asthma, DVT(on Coumadin), dyslipidemia, alcohol abuse presented to the ED through ambulance for the evaluation of coffee-ground emesis with dark stools. Patient was diagnosed with right approximately DVT in August 2015 , apparently had a vascular surgery at that time(? thrombectomy/stent -scar to his right leg without any IVC filter placement. He was prescribed, xarelto by his primary care physician and was also started on Coumadin by his vascular surgeon(who apparently did not know that patient was also taking xeralto). Patient took xeralto and Coumadin both for almost 1-2 weeks. Then he started having nosebleeds associated with skin bruises. He was sent to the ER by his primary care physician, Doppler venous ultrasound revealed left-sided DVT. INR was supratherapeutic, Coumadin was held .He was again seen by his primary care physician stopped the Xarelto. Last INR was checked about 3 weeks ago that was normal. Coumadin was continued afterwards. Patient mentioned that he has been abnormal bleeding through superficial cuts on the skin and bruising for almost 2-3 weeks now .Today he had 2 episodes of coffee-ground emesis associated with 5 episodes of dark stools,. Denied any nausea/abdominal discomfort. Denied any diarrhea or constipation. The symptoms are associated with slight shortness of breath without any chest discomfort or palpitations. Denied any dizziness or lightheadedness. Patient was concerned about his symptoms and called EMS. Patient never had endoscopy or colonoscopy before. Of the note, patient has a history of chronic alcohol abuse drinks about 2-3 beers on daily basis. He was hospitalized in [facility] 2013 for alcohol abuse and withdrawal was on Ativan drip in the ICU. Patient is a current every day. smoker denied any illicit drug use In the ED patient was found to be severely anemic with an H&H of 5.3/16 without active signs of complete. INR was supratherapeutic, more than 10. Allergies/Medications Allergies: Coded Allergies: codeine (Mild, SHAKES 12/01/16) Home Med List: Albuterol Sulfate (Ventolin Hfa) 90 MCG HFA.AER.AD 2 PUF INH Q4-6 PRN PRN SHORTNESS OF BREATH Gabapentin (Neurontin) 300 MG CAPSULE 1 CAP PO TID NERVE PAIN (Reported) Mometasone/Formoterol (Dulera 200 Mcg/5 Mcg Inhaler) 200 MCG-5 MCG/ACTUATION HFA.AER.AD 2 PUF INH BID ASTHMA (Reported) Pravastatin Sodium (Pravachol) 40 MG TABLET 1 TAB PO DAILY CHOLESTEROL ( Reported) Ranitidine HCl 300 MG TABLET 1 TAB PO QPM GI (Reported) Warfarin Sodium (Jantoven) 7.5 MG TABLET 1 TAB PO DAILY BLOOD THINNER ( Reported) Review of Systems Review of Systems Constitutional: Reports: chills, weakness. EENTM: Denies: blurred vision, double vision. Cardiovascular: Denies: chest pain, edema, orthopena. Respiratory: Denies: cough, hemoptysis, orthopnea. GI: Denies: bloating, constipation. Genitourinary: Denies: discharge, frequency, hematuria. Skin: Reports: change in skin color. Neurological/Psychological: Reports: anxiety. Denies: confusion, depressed, dementia. Hematologic/Endocrine: Reports: bruising, bleeding. 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 , Age 62. FATHER (HEART CONDITION). , Age 60+. Psychosocial History ETOH Use: heavy use Exam & Diagnostic Data Last 24 Hrs of Vital Signs/I&O Vital Signs Date Time Temp Pulse Resp B/P B/P Pulse O2 O2 Flow FiO2 Mean Ox Delivery Rate 02/03 2028 99.0 117 22 99/54 99 Room Air 02/02 1907 98.4 104 18 124/67 99 Nasal 2.0L Cannula 02/02 1845 Nasal 2.0L Cannula 02/02 1745 99.4 101 18 113/60 100 Nasal 2.0L Cannula Physical Exam General Appearance: well developed/nourished, no apparent distress, mild distress Head: atraumatic, normal appearance Eyes: Bilateral: normal appearance. 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 Cranial Nerves: normal hearing, normal speech, PERRL Skin: ecchymosis Last 48 Hrs of Labs/Rahat: Laboratory Tests 02/03/17 0625: Anion Gap 4 L, Estimated GFR > 60, Glucose 91, Calcium 7.2 L, Phosphorus 1.8 L, Magnesium 1.8, Total Bilirubin 1.1, AST 24, ALT 30, Troponin I 0.21 *H, Albumin 2.1 L, PT 44.3 *H, INR 4.28 *H, CBC w Diff NO MAN DIFF REQ, RBC 2.32 L , MCV 80.7, MCH 26.5 L, RDW 19.1 H, MPV 7.7, Gran % 58.5, Lymphocytes % 31.9, Monocytes % 8.2, Eosinophils % 0.7, Basophils % 0.7, Absolute Granulocytes 2.9, Absolute Lymphocytes 1.6, Absolute Monocytes 0.4, Absolute Eosinophils 0, Absolute Basophils 0, PUBS MCHC 32.8 L 02/03/17 0600: Troponin I Cancelled 02/03/17 0105: Troponin I 0.10, PT 52.7 *H, INR 5.10 *H 02/02/17 2308: CBC w Diff NO MAN DIFF REQ, RBC 2.02 L, MCV 79.3 L, MCH 25.7 L, RDW 20.1 H, MPV 8.3, Gran % 65.2, Lymphocytes % 25.5, Monocytes % 8.0, Eosinophils % 0.1, Basophils % 1.2, Absolute Granulocytes 4.5, Absolute Lymphocytes 1.8, Absolute Monocytes 0.6, Absolute Eosinophils 0, Absolute Basophils 0.1, PUBS MCHC 32.5 L 02/02/17 2215: Urine Opiates Screen < 100.00, Methadone Screen < 40, Barbiturate Screen < 60, Ur Phencyclidine Scrn < 6.00, Amphetamines Screen 138, U Benzodiazepines Scrn < 85, Urine Cocaine Screen < 50, Urine Cannabis Screen < 5.00, Urine Color YEL, Urine Clarity CLEAR, Urine pH 5.5, Ur Specific [place] 1.025, Urine Protein NEG, Urine Ketones NEG, Urine Nitrite NEG, Urine Bilirubin NEG, Urine Urobilinogen 0.2, Ur Leukocyte Esterase NEG, Ur Microscopic EXAM NOT REQUIRED, Urine Hemoglobin NEG, Urine Glucose NEG 02/02/17 1810: Anion Gap 13, Estimated GFR > 60, BUN/Creatinine Ratio 18.3, Glucose 99, Calcium 8.0 L, Magnesium 1.9, Total Bilirubin 0.6, AST 42, ALT 22, Alkaline Phosphatase 72, Troponin I 0.01, Total Protein 5.6 L, Albumin 2.5 L, Globulin 3.1, Albumin /Globulin Ratio 0.8 L, PT > 103.0 *H, INR > 10.0 *H, CBC w Diff NO MAN DIFF REQ , RBC 2.09 L, MCV 80.0, MCH 25.5 L, RDW 23.3 H, MPV 8.1, Gran % 75.1, Lymphocytes % 18.2 L, Monocytes % 5.8, Eosinophils % 0, Basophils % 0.9, Absolute Granulocytes 7.6 H, Absolute Lymphocytes 1.8, Absolute Monocytes 0.6, Absolute Eosinophils 0, Absolute Basophils 0.1, PUBS MCHC 31.8 L, Serum Alcohol 35.0 Assessment/Plan Impression/Plan: This is a is a 61-year-old gentleman with a past medical history significant for asthma, DVT(on Coumadin, was on xeralto before), dyslipidemia, alcohol abuse presented to the ED through ambulance for the evaluation of coffee-ground emesis with dark stools. In the ED patient was found to be severely anemic with an H&H of 5.3/16 without active signs of complete. INR was supratherapeutic, more than 10. Vitals admission: Temperature 98.4, pulse 101, respiratory rate 18, blood pressure 113/60, Saturating more than 92% on 2 L. Assessment and plan: 1. 1. Acute blood loss anemia (likely upper GI bleed )in the setting of supratherapeutic INR-sever coagulopathy from coumadin : * We'll admit the patient to critical care unit * We'll transfuse him 2 units of packed RBC and then recheck the CBC at around midnight. * At the same time we'll transfuse him fresh frozen plasma and recheck INR . * Will change GI consult has been obtained as per recommendations, we'll keep the patient nothing by mouth for now, goal INR should be around 3. Patient will likely have endoscopy tomorrow once the INR normalizes. * We will do serial CBC and INR, goal of h/h : 04/16 * Obtain Doppler venous ultrasound in the morning .Obtain vascular surgery consult in the a.m. for possible thrombectomy and consideration of IVC filter. * Check orthostats * Continue with IV hydration * Watch for any hemodynamic stability. * Aspiration precautions * Will notify GI in case overt signs of bleed 2. History of significant alcohol abuse: * Will give one banana bag * Urine toxicology's. * We will monitor him on CIWA scale. * Watch for any withdrawl seizures 3. History of asthma * Continue TRC nebs and home inhalers * DVT prophylaxis with Alps [id number] pain controlled with Tylenol Patient is full code Consult Acknowledgment - Thank you for your consult request. TIM IBRAHIM,Dank ROGERS 02/02/172009: General Information and HPI Consulting Request Date of Consult: 02/02/17 Requested By: Dr. Hill Reason for Consult: CRCU management Source of Information: patient, old records Exam Limitations: no limitations Allergies/Medications Current Medications: Current Medications Sig/Lillie Start time Last Medication Dose Route Stop Time Status Admin Acetaminophen 650 MG Q6P PRN 02/03 2000 AC PO Acetaminophen 1,000 MG Q6P PRN 02/03 2000 AC IV Gabapentin 0 .STK-MED ONE 02/02 1939 DC PO Gabapentin 300 MG ONCE ONE 02/02 1930 DC 02/02 PO 02/02 193 1941 Pantoprazole Sodium 0 .STK-MED ONE 02/02 1824 DC IV Pantoprazole Sodium 40 MG Q5H 02/02 1800 UNVr 02/02 Sodium Chloride 100 ML IV 1828 Pantoprazole Sodium 40 MG ONCE ONE 02/02 1745 DC 02/02 IV 02/02 1746 1828 Phytonadione 0 .STK-MED ONE 02/02 1853 DC .ROUTE Phytonadione 10 MG ONCE ONE 02/02 1845 DC 02/02 IM 02/02 1846 1853 Sodium Chloride 1,000 ML Q8H 02/03 2000 AC IV Sodium Chloride 1,000 ML BOLUS ONE 02/02 1800 DC 02/02 IV 02/02 1859 1828 Assessment/Plan Other Findings/Comments: I have personally seen and examined the patient, and agree with the resident's assessment and plan as above. Briefly, the patient is a 61-year-old male with a past medical history significant for alcohol abuse, hyperlipidemia, and asthma. He also has a history of recurrent DVTs for which she's been taking anticoagulation. The patient was taking both warfarin and Xarelto which were prescribed by 2 different physicians. The patient does not have an IVC filter. He is being followed by vascular surgery for his DVTs and chronic lower extremity swelling. He was brought in by ambulance for having coffee ground emesis and tarry stools. The patient has also noticed abnormal bruising and bleeding over his skin. The patient was tachycardic upon presentation but normotensive. He waited and found to have a hemoglobin of 5.3 with an INR greater than 10. 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 He was evaluated by GI. The current plan is to monitor the patient in the critical care unit, transfuse 2 units of packed red blood cells along with FFP to reduce the INR, and monitor for bleeding. Labs will be repeated periodically throughout the night to ensure improvement The patient will be monitored on the CIWA scale and receive multivitamin, thiamine and folate. We will consult vascular surgery for recommendations regarding the possibility of a thrombectomy and consideration for an IVC filter. Lower extremity Dopplers will be repeated. GI will be notified immediately if there is any evidence of acute bleeding. We will continue close monitoring in the ICU. I discussed the plan of care with the housestaff and asked them to contact me should they have any issues or concerns. Consult Acknowledgment - Thank you for your consult request.
--- NOTE | 2017-02-02 20:01 | NUR ---
PT HAS BED ASSIGNMENT 111. RN NOTIFIED.
--- NOTE | 2017-02-02 20:05 | Admission Certification ---
Admission Certification Certification Statement - As attending physician, I certify that at the time of - admission, based on clinical presentation, severity of - symptoms, need for further diagnostic testing and - therapeutic interventions, and risk of adverse outcomes - without in-hospital treatment, in my clinical assessment, - this patient requires an acute hospital stay for a minimum - of two nights or longer. I have also considered psychsocial - factors such as support system, advanced age, financial - issues, cognitive issues, and failed out-patient treatments, - past re-admission history, safety of patient, and lack of - compliance as applicable. Specific rationale supporting this admission is: Acute blood loss anemia, upper GI bleeding, warfarin induced coagulopathy, requires ICU level of care.
--- NOTE | 2017-02-02 20:53 | NUR ---
PT RECIEVED FIRST UNIT OF FFP AT 2001. FIRST UNIT OF [facility] HUNG PRIOR TO PT GOING TO ICU. PT SEEN BY DR PRATT IN ED
--- NOTE | 2017-02-02 21:36 | Cons- Gastroenterology ---
General Information and HPI Consulting Request Date of Consult: 02/02/17 Requested By: DALJIT IBRAHIM,GEORGE Reason for Consult: GI bleed Source of Information: patient History of Present Illness: 61-year-old male with significant peripheral vascular disease/peripheral arterial disease, followed by vascular surgery. He is anticoagulated. He presents with acute onset black emesis, and black stool. He denies lightheadedness/dizziness, fainting, chest pain, shortness of breath. Prior to this, he had no significant heartburn, indigestion, dysphagia, nausea, abdominal pain, altered bowel habits, blood per rectum. He has not had screening colonoscopy, nor any need for upper endoscopy. He has been found to be significantly anemic, and with highly supratherapeutic INR. He had, and multiple bruises all over his body. He drinks alcohol daily. There is no known liver disease. Allergies/Medications Allergies: Coded Allergies: codeine (Mild, SHAKES 12/01/16) Home Med List: Albuterol Sulfate (Ventolin Hfa) 90 MCG HFA.AER.AD 2 PUF INH Q4-6 PRN PRN SHORTNESS OF BREATH Apixaban (Eliquis) 5 MG TABLET 1 TAB PO BID blood clots Apixaban (Eliquis) 5 MG TABLET 1 TAB PO BID blood clots From 02/18/17-02/25/17 take 10 mg twice a day 02/26/17 onwards take 5 mg twice a day Aspirin (Aspirin*) 81 MG TAB.CHEW 81 MG PO DAILY heart health Gabapentin (Neurontin) 300 MG CAPSULE 1 CAP PO TID NERVE PAIN (Reported) Mometasone/Formoterol (Dulera 200 Mcg/5 Mcg Inhaler) 200 MCG-5 MCG/ACTUATION HFA.AER.AD 2 PUF INH BID ASTHMA (Reported) Omeprazole 20 MG CAPSULE.DR 40 MG PO DAILY AC GI BLEED Pravastatin Sodium (Pravachol) 40 MG TABLET 1 TAB PO DAILY CHOLESTEROL ( Reported) Ranitidine HCl 300 MG TABLET 1 TAB PO QPM GI (Reported) Current Medications: Current Medications Sig/Lillie Start time Last Medication Dose Route Stop Time Status Admin Acetaminophen 650 MG Q6P PRN 02/03 2000 AC PO Acetaminophen 1,000 MG Q6P PRN 02/03 2000 AC IV Cyanocobalamin/ 1 BAG ONCE ONE 05/09 2030 AC Thiamine/Pyridoxine IV 02/03 429 Dextrose/Water 1,000 ML Gabapentin 0 .STK-MED ONE 02/02 1939 DC PO Gabapentin 300 MG ONCE ONE 02/02 1930 DC 02/02 PO 02/02 1931 194 Ondansetron HCl 0 .STK-MED ONE 02/02 2019 DC .ROUTE Ondansetron HCl 4 MG ONCE ONE 02/02 2015 DC IV 02/02 2016 Pantoprazole Sodium 0 .STK-MED ONE 02/02 1824 DC IV Pantoprazole Sodium 40 MG Q5H 02/02 1800 AC 02/02 Sodium Chloride 100 ML IV 1828 Pantoprazole Sodium 40 MG ONCE ONE 02/02 1745 DC / IV 02/02 174 1828 Phytonadione 0 .STK-MED ONE 02/02 1853 DC .ROUTE Phytonadione 10 MG ONCE ONE 02/02 1845 DC 02/02 IM 02/02 184 1853 Sodium Chloride 1,000 ML Q8H 02/02 2000 AC IV Sodium Chloride 1,000 ML BOLUS ONE 02/02 1800 DC 02/02 IV 02/02 185 1828 Past History Travel History Traveled to [place] past 21 day No Medical History Neurological: peripheral neuropathy EENT: NONE Cardiovascular: hyperlipidemia Respiratory: asthma Gastrointestinal: NONE Hepatic: NONE Renal: NONE Musculoskeletal: NONE Psychiatric: alcohol dependence Endocrine: NONE Blood Disorders: DVT Cancer(s): 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 , Age 62. FATHER (HEART CONDITION). , Age 60+. Psychosocial History ETOH Use: heavy use Review of Systems Review of Systems Constitutional: Denies: fever, malaise. EENTM: Reports: epistaxis. Denies: icterus. Cardiovascular: Reports: edema. Denies: chest pain, syncope. Respiratory: Denies: cough, short of breath. GI: Reports: see HPI. Genitourinary: Denies: dysuria, hematuria. Musculoskeletal: Denies: muscle stiffness, neck pain. Skin: Reports: lesions (bruises and cuts). Denies: jaundice. Neurological/Psychological: Denies: cognitive dysfunction, headache. Hematologic/Endocrine: Reports: bruising, bleeding. Denies: polyuria. Exam & Diagnostic Data Vital Signs and I&O Vital Signs Date Time Temp Pulse Resp B/P B/P Pulse O2 O2 Flow FiO2 Mean Ox Delivery Rate 02/03 2028 99.0 117 22 99/54 99 Room Air 02/02 1907 98.4 104 18 124/67 99 Nasal 2.0L Cannula 02/02 1845 Nasal 2.0L Cannula 02/02 1745 99.4 101 18 113/60 100 Nasal 2.0L Cannula Physical Exam: Well-developed well-nourished, in no apparent distress. Alert and oriented. Skin with pallor; numerous ecchymoses and cuts. No jaundice or stigmata of chronic liver disease. No scleral icterus. Dry black blood in oropharynx but no other lesion. No thyromegaly or neck mass. No adenopathy. Heart regular rhythm. Lungs clear. Abdomen is soft and nondistended, and obese, with normal bowel sounds; no tenderness, mass or palpable hepatosplenomegaly. Right leg with long scar; bilateral 1+ edema. Results Pertinent Lab Results: Laboratory Tests 02/02 1810 Chemistry Sodium (137 - 145 mmol/L) 131 L Potassium (3.5 - 5.1 mmol/L) 4.1 Chloride (98 - 107 mmol/L) 103 Carbon Dioxide (22 - 30 mmol/L) 16 L Anion Gap (5 - 16) 13 BUN (9 - 20 mg/dL) 11 Creatinine (0.7 - 1.2 mg/dL) 0.6 L Estimated GFR (>60 ml/min) > 60 BUN/Creatinine Ratio (7 - 25 %) 18.3 Glucose (65 - 99 mg/dL) 99 Calcium (8.4 - 10.2 mg/dL) 8.0 L Magnesium (1.6 - 2.3 mg/dL) 1.9 Total Bilirubin (0.2 - 1.3 mg/dL) 0.6 AST (17 - 59 U/L) 42 ALT (21 - 72 U/L) 22 Alkaline Phosphatase (< 127 U/L) 72 Troponin I (<0.11 ng/ml) 0.01 Total Protein (6.3 - 8.2 g/dL) 5.6 L Albumin (3.5 - 5.0 g/dL) 2.5 L Globulin (1.9 - 4.2 gm/dL) 3.1 Albumin/Globulin Ratio (1.1 - 2.2 %) 0.8 L Coagulation PT (9.4 - 12.5 SEC) > 103.0 *H INR (0.90 - 1.17) > 10.0 *H Hematology CBC w Diff NO MAN DIFF REQ WBC (4.8 - 10.8 /CUMM) 10.1 RBC (4.70 - 6.10 /CUMM) 2.09 L Hgb (14.0 - 18.0 G/DL) 5.3 *L Hct (42 - 52 %) 16.7 *L MCV (80.0 - 94.0 FL) 80.0 MCH (27.0 - 31.0 PG) 25.5 L RDW (11.5 - 14.5 %) 23.3 H Plt Count (130 - 400 /CUMM) 259 MPV (7.4 - 10.4 FL) 8.1 Gran % (42.2 - 75.2 %) 75.1 Lymphocytes % (20.5 - 51.1 %) 18.2 L Monocytes % (1.7 - 9.3 %) 5.8 Eosinophils % (0 - 5 %) 0 Basophils % (0.0 - 2.0 %) 0.9 Absolute Granulocytes (1.4 - 6.5 /CUMM) 7.6 H Absolute Lymphocytes (1.2 - 3.4 /CUMM) 1.8 Absolute Monocytes (0.10 - 0.60 /CUMM) 0.6 Absolute Eosinophils (0.0 - 0.7 /CUMM) 0 Absolute Basophils (0.0 - 0.2 /CUMM) 0.1 PUBS MCHC (33.0 - 37.0 G/DL) 31.8 L Toxicology Serum Alcohol (<10 MG/DL) 35.0 Assessment/Plan Assessment/Recommendations: Severe anemia in patient with acute onset hematemesis (black, not fresh blood)/ melena. Despite the severity of the anemia, the patient is not hypotensive or lightheaded, and his MCV is lower than previously. This would suggest a chronic GI bleed with superimposed acute bleed. This is in the setting of severe coagulopathy on Coumadin. There is no evidence of chronic liver disease; the amount of alcohol consumption is not clear. Recommendations * Nothing by mouth, IV fluids * Transfuse 2 units of packed red blood cells, and recheck CBC. Maintain hemoglobin/hematocrit at 7/21. * Aim to achieve INR less than 3 with vitamin K and fresh frozen plasma * IV PPI * EGD once INR in the therapeutic range * Alcohol withdrawal precautions * Vascular surgery consult regarding recurrent DVTs Consult Acknowledgment - Thank you for your consult request.
--- NOTE | 2017-02-02 22:03 | NUR ---
ADMITTED FROM ER ALERT AND ORIENTED REFUSING SHEARER URINAL GIVEN TO PATIENT BLOOD INFUSING ORDERED WITH NO PROBLEMS NOTED PROTONIX GTT INFUSING ORDERED NO FURTHER VOMITING NOTED VSS SEE FLOWSHEET
[2017-02-02 23:00] VITALS: BP 96/55
[2017-02-02 23:26] LABS: ABSOLUTE BASOPHIL COUNT 0.1 /CUMM (0.0-0.2); ABSOLUTE EOSINOPHIL COUNT 0 /CUMM (0.0-0.7); ABSOLUTE GRANULOCYTE CT 4.5 /CUMM (1.4-6.5); ABSOLUTE LYMPH COUNT 1.8 /CUMM (1.2-3.4); ABSOLUTE MONOCYTE COUNT 0.6 /CUMM (0.10-0.60); BASOPHIL % 1.2 % (0.0-2.0); EOSINOPHIL % 0.1 % (0-5); GRANULOCYTE % 65.2 % (42.2-75.2); MEAN CORPUSCULAR HGB 25.7 PG (27.0-31.0); MEAN CORPUSCULAR HGB CONC 32.5 G/DL (33.0-37.0); MEAN CORPUSCULAR VOLUME 79.3 FL (80.0-94.0); MEAN PLATELET VOLUME 8.3 FL (7.4-10.4); PLATELET COUNT 181 /CUMM (130-400); RBC DISTRIBUTION WIDTH 20.1 % (11.5-14.5); RED BLOOD CELL CT 2.02 /CUMM (4.70-6.10); WHITE BLOOD CELL COUNT 6.9 /CUMM (4.8-10.8)
[2017-02-03] VITALS (12 sets, daily range): BP systolic 92–127; BP diastolic 50–81
[2017-02-03 01:32] LABS: PT 52.7 SEC (9.4-12.5)
[2017-02-03 06:40] LABS: ABSOLUTE BASOPHIL COUNT 0 /CUMM (0.0-0.2); ABSOLUTE EOSINOPHIL COUNT 0 /CUMM (0.0-0.7); ABSOLUTE GRANULOCYTE CT 2.9 /CUMM (1.4-6.5); ABSOLUTE LYMPH COUNT 1.6 /CUMM (1.2-3.4); ABSOLUTE MONOCYTE COUNT 0.4 /CUMM (0.10-0.60); BASOPHIL % 0.7 % (0.0-2.0); EOSINOPHIL % 0.7 % (0-5); GRANULOCYTE % 58.5 % (42.2-75.2); MEAN CORPUSCULAR HGB 26.5 PG (27.0-31.0); MEAN CORPUSCULAR HGB CONC 32.8 G/DL (33.0-37.0); MEAN CORPUSCULAR VOLUME 80.7 FL (80.0-94.0); MEAN PLATELET VOLUME 7.7 FL (7.4-10.4); PLATELET COUNT 156 /CUMM (130-400); RBC DISTRIBUTION WIDTH 19.1 % (11.5-14.5); RED BLOOD CELL CT 2.32 /CUMM (4.70-6.10); WHITE BLOOD CELL COUNT 4.9 /CUMM (4.8-10.8)
[2017-02-03 06:52] LABS: HEMATOCRIT 18.8 % (42-52)
[2017-02-03 06:57] LABS: PT 44.3 SEC (9.4-12.5)
--- NOTE | 2017-02-03 07:02 | PN- Resident CRCU ---
Subjective HPI/CRCU Issues: Mr. Flores seen and evaluated at bedside this AM. He was resting comfortably in bed receiving a unit of blood. He endorses slight lethargy and wheezing but otherwise offered no complaints. He is aware he is scheduled for EGD once his INR becomes therapeutic. 24 Hour Events: No overnight telemetry events noted. Vital signs: T 98.3-99.1, HR 89-103, RR 16-29, O2 94-99% on room air transitioned to 1 L NC for comfort, SBP 81-112, DBP 50-61. Objective Vital Signs & I&O Last 8 Hrs of Vitals and I&O: T 98.3-99.1, HR 89-103, RR 16-29, O2 94-99% on room air transitioned to 1 L NC for comfort, SBP 81-112, DBP 50-61. Exam General Appearance: well developed/nourished, no apparent distress, alert, awake , comfortable Head: atraumatic, normal appearance Ears, Nose, Throat: normal pharynx, hearing grossly normal Neck: normal inspection, supple, full range of motion Respiratory: Wheezing in bilateral lung kulkarni Cardiovascular: regular rate/rhythm Gastrointestinal: Abdomen slightly distended without tenderness to palpation of four quadrants. Extremities: normal inspection, Slight bilateral lower extremity edema Cranial Nerves: normal hearing, normal speech, PERRL Skin: warm/dry Nutrition Nutrition: NPO Current Medications: Current Medications Sig/Lillie Start time Last Medication Dose Route Stop Time Status Admin Acetaminophen 650 MG Q6P PRN 02/03 2000 AC PO Acetaminophen 1,000 MG Q6P PRN 02/03 2000 AC IV Albuterol Sulfate 3 ML Q4P PRN 02/03 0815 AC 02/03 INH 0817 Albuterol Sulfate 2 PUF Q4-6 PRN PRN 02/03 0645 AC INH Budesonide/ 2 PUF BID 02/03 1000 AC 02/03 Formoterol Fumarate INH 1013 Cyanocobalamin/ 1 BAG ONCE ONE 02/02 2030 DC 02/02 Thiamine/Pyridoxine IV 02/03 0429 2259 Dextrose/Water 1,000 ML Furosemide 20 MG ONCE ONE 02/03 0830 DC 02/03 IV 02/03 0831 0824 Gabapentin 300 MG Q8 02/03 0620 AC 02/03 PO 0808 Gabapentin 0 .STK-MED ONE 02/02 1939 DC PO Gabapentin 300 MG ONCE ONE 02/02 1930 DC 05/ PO 02/02 193 194 Melatonin 3 MG .STK-MED ONE 02/03 0116 DC PO 02/03 0117 Melatonin 3 MG ONCE ONE 02/02 2230 DC 02/03 PO 02/02 2231 0115 Ondansetron HCl 0 .STK-MED ONE 02/02 2019 DC .ROUTE Ondansetron HCl 4 MG ONCE ONE 02/02 2015 DC IV 02/02 2016 Pantoprazole Sodium 0 .STK-MED ONE 02/02 1824 DC IV Pantoprazole Sodium 40 MG Q5H 02/02 1800 AC 02/03 Sodium Chloride 100 ML IV 1014 Pantoprazole Sodium 40 MG ONCE ONE 02/02 1745 DC 02/02 IV 02/02 1746 1828 Phytonadione 0 .STK-MED ONE 02/02 185 DC .ROUTE Phytonadione 10 MG ONCE ONE 02/02 1845 DC 02/02 IM 02/02 1846 1853 Potassium Chloride 10 MEQ Q1H 02/03 0915 DC 02/03 IV 02/03 1116 1229 Potassium Chloride 20 MEQ ONCE ONE 02/03 0845 CAN IV 02/03 0846 Sodium Chloride 1,000 ML Q8H 02/02 2000 AC 02/03 IV 0448 Sodium Chloride 1,000 ML BOLUS ONE 02/02 1800 DC 02/02 IV 02/02 1859 1828 EKG Findings: ST, HR in the 100s, no significant ST/T changes. Impression/Plan Impression/Problem List Impression: Mr. Flores is a pleasant 61 year old male with PMH asthma, dyslipidemia, alcohol abuse, previous alcohol withdrawl seizure, and DVT x 2 (2014, August 2016) currently on coumadin who presented with chief complaint of several episodes of coffe-ground emesis and dark, tarry stools without overt blood/ clots. Associated symptoms at time of presentation included easy bleeding/ brusing of his extremities and dyspnea on exertion. Of note, patient was started on anticoagulation with his second episode of DVT in August of 2016. He was inadvertently placed on both xarelto by his PCP and Coumadin by Dr. De Santiago, vascular surgery, until 1-2 weeks later this was noted and his PCP discontinued xarelto. In the ED: Vital signs showed a Tmax of 994. HR 117, RR 22, BP 99/54 and O2 saturation of 99% on room air. Labs were significant for H&H 5.3/16.7, Plt 259, Na 131, K 4.1, HCO3 16, Cre 0.6 , Ca 8, Albumin 2.5, INR >10. EKG showed sinus tachycardia and no significant ST/T wave changes. Patient is currently admitted to the ICU and the following is the management: 1. Acute blood loss anemia secondary to upper GI bleed in the setting of supratherapeutic INR * GI consult placed, instructed to keep patient NPO as once his INR is <3 he will be taken for EGD * Continue to hold coumadin * IVF with NS at 125 cc/h * Continue to transfuse PRBC to bring Hgb/Hct >7/21, trend CBC frequently * Reverse INR with vitamin K and FFP, goal INR <3 to perform EGD * Continue IV protonix drip * Strict Is/Os 2. Alcohol abuse * CIWA scoring * Banana bag daily * Ativan PRN per CIWA protocol 3. History of DVT * Follow up bilateral lower extremity venous dopplers * Hold coumadin due to acute blood loss anemia * Follow up vascular surgery consult in regards to ?need for IVC filter 4. Increasing shortness of breath in the setting of asthma * Consideration for fluid overload in the setting of frequent transfusions * Continue albuterol inhaler PRN for shortness of breath * Patient was noted to have shortness of breath and bilateral wheezing on exam, given 20 mg IV lasix x 1 * Consideration for COPD as patient has been been smoking for 20 years, 1/2 PPD * Tobacco cessation counseling provided * F/U echocardiogram 5. Chronic pain * Continue neurontin 300 mg PO Q8 * PO tylenol for mild pain, IV tylenol for moderate pain FULL CODE DVTP: ALPS NPO pending EGD Mild-moderate pain pathway Problem List: 1. Asthma 2. ETOH ABUSE 3. DVT (deep venous thrombosis) 4. GI bleed Pain Ratin Tomorrow's Labs & Rationales: CBC (acute blood loss anemia) ICU bundle (hypokaelmia) INR Plan DVT/Prophylaxis: mechanical (no pharm 2/2 acute blood loss)
--- NOTE | 2017-02-03 07:27 | PN- Gastroenterology ---
Assessment/Plan Assessment/Recommendations: GI bleed in the setting of supratherapeutic INR. The patient has received 2 units of packed red blood cells, and hematocrit is still suboptimal. Blood pressure is borderline. He is only received 2 units of FFP, and INR still high. Recommendations * Nothing by mouth, IV fluids * Transfuse 2 more units of packed red blood cells, and recheck CBC. Maintain hemoglobin/hematocrit at greater than 7/21. * Aim to achieve INR less than 3 with vitamin K and fresh frozen plasma * Continue IV PPI * EGD once INR in the therapeutic range * Alcohol withdrawal precautions * Vascular surgery consult regarding recurrent DVTs Subjective Subjective: Had one large black bowel movement overnight. No nausea, vomiting, abdominal pain. Objective Vital Signs and I&Os Vital Signs Date Time Temp Pulse Resp B/P B/P Pulse O2 O2 Flow FiO2 Mean Ox Delivery Rate 02/03 0600 70 20 127/81 02/03 0400 98.3 90 21 96/54 02/03 0400 95 Room Air 02/03 0200 98.6 93 22 96/60 02/03 0000 98.6 96 19 97/53 02/03 0000 98.6 96 19 97/53 97 Room Air 02/03 0000 97 Room Air 02/02 2300 99.1 103 18 96/55 02/02 2028 99.0 117 22 99/54 99 Room Air 02/02 1907 98.4 104 18 124/67 99 Nasal 2.0L Cannula 02/02 1845 Nasal 2.0L Cannula 02/02 1745 99.4 101 18 113/60 100 Nasal 2.0L Cannula Intake & Output 02/03 1600 02/03 0400 02/02 1600 02/02 0400 02/01 1600 02/01 0400 Intake Total 1488 1515 Output Total 250 Balance 1488 1265 Intake, Blood 600 350 Product Intake, IV 888 1165 Intake, Oral 0 0 Output, Urine 250 Patient 193 lb Weight Weight Reported by Patient Measurement Method Physical Exam: Alert and oriented. Sclera anicteric. Skin warm and dry. Abdomen soft, mildly distended, without tenderness. Bilateral lower extremity edema. Current Medications: Current Medications Sig/Lillie Start time Last Medication Dose Route Stop Time Status Admin Acetaminophen 650 MG Q6P PRN 02/03 2000 AC PO Acetaminophen 1,000 MG Q6P PRN 02/03 2000 AC IV Albuterol Sulfate 2 PUF Q4-6 PRN PRN 02/03 0645 AC INH Budesonide/ 2 PUF BID 02/03 1000 AC Formoterol Fumarate INH Cyanocobalamin/ 1 BAG ONCE ONE 02/02 2030 DC 02/02 Thiamine/Pyridoxine IV 02/03 042 2259 Dextrose/Water 1,000 ML Gabapentin 300 MG Q8 02/03 0620 AC PO Gabapentin 0 .STK-MED ONE 02/02 193 DC PO Gabapentin 300 MG ONCE ONE 02/02 193 DC 02/02 PO 02/02 193 1941 Melatonin 3 MG ONCE ONE 02/02 2230 DC 02/03 PO 02/02 2231 0115 Ondansetron HCl 0 .STK-MED ONE 02/02 2019 DC .ROUTE Ondansetron HCl 4 MG ONCE ONE 02/02 2015 DC IV 02/02 2016 Pantoprazole Sodium 0 .STK-MED ONE 02/02 1824 DC IV Pantoprazole Sodium 40 MG Q5H 02/02 1800 AC 02/03 Sodium Chloride 100 ML IV 0443 Pantoprazole Sodium 40 MG ONCE ONE 02/02 1745 DC 02/02 IV 02/02 1746 1828 Phytonadione 0 .STK-MED ONE 02/02 1853 DC .ROUTE Phytonadione 10 MG ONCE ONE 02/02 1845 DC 02/02 IM 02/02 1846 1853 Sodium Chloride 1,000 ML Q8H 02/02 2000 AC 02/03 IV 0448 Sodium Chloride 1,000 ML BOLUS ONE 02/02 1800 DC 02/02 IV 02/02 1859 1828 Results Pertinent Lab Results: Laboratory Tests 02/03 02/03 02/03 0625 0600 0105 Chemistry Sodium Pending Potassium Pending Chloride Pending Carbon Dioxide Pending Anion Gap Pending BUN Pending Creatinine Pending Glucose Pending Calcium Pending Phosphorus Pending Magnesium Pending Total Bilirubin Pending AST Pending ALT Pending Troponin I (<0.11 ng/ml) Pending Cancelled 0.10 Albumin Pending Coagulation PT (9.4 - 12.5 SEC) 44.3 *H 52.7 *H INR (0.90 - 1.17) 4.28 *H 5.10 *H Hematology CBC w Diff NO MAN DIFF REQ WBC (4.8 - 10.8 /CUMM) 4.9 RBC (4.70 - 6.10 /CUMM) 2.32 L Hgb (14.0 - 18.0 G/DL) 6.2 *L Hct (42 - 52 %) 18.8 *L MCV (80.0 - 94.0 FL) 80.7 MCH (27.0 - 31.0 PG) 26.5 L RDW (11.5 - 14.5 %) 19.1 H Plt Count (130 - 400 /CUMM) 156 MPV (7.4 - 10.4 FL) 7.7 Gran % (42.2 - 75.2 %) 58.5 Lymphocytes % (20.5 - 51.1 %) 31.9 Monocytes % (1.7 - 9.3 %) 8.2 Eosinophils % (0 - 5 %) 0.7 Basophils % (0.0 - 2.0 %) 0.7 Absolute Granulocytes (1.4 - 6.5 /CUMM) 2.9 Absolute Lymphocytes (1.2 - 3.4 /CUMM) 1.6 Absolute Monocytes (0.10 - 0.60 /CUMM) 0.4 Absolute Eosinophils (0.0 - 0.7 /CUMM) 0 Absolute Basophils (0.0 - 0.2 /CUMM) 0 PUBS MCHC (33.0 - 37.0 G/DL) 32.8 L 02/02 02/02 2308 2215 Hematology CBC w Diff NO MAN DIFF REQ WBC (4.8 - 10.8 /CUMM) 6.9 RBC (4.70 - 6.10 /CUMM) 2.02 L Hgb (14.0 - 18.0 G/DL) 5.2 *L Hct (42 - 52 %) 16.0 *L MCV (80.0 - 94.0 FL) 79.3 L MCH (27.0 - 31.0 PG) 25.7 L RDW (11.5 - 14.5 %) 20.1 H Plt Count (130 - 400 /CUMM) 181 MPV (7.4 - 10.4 FL) 8.3 Gran % (42.2 - 75.2 %) 65.2 Lymphocytes % (20.5 - 51.1 %) 25.5 Monocytes % (1.7 - 9.3 %) 8.0 Eosinophils % (0 - 5 %) 0.1 Basophils % (0.0 - 2.0 %) 1.2 Absolute Granulocytes (1.4 - 6.5 /CUMM) 4.5 Absolute Lymphocytes (1.2 - 3.4 /CUMM) 1.8 Absolute Monocytes (0.10 - 0.60 /CUMM) 0.6 Absolute Eosinophils (0.0 - 0.7 /CUMM) 0 Absolute Basophils (0.0 - 0.2 /CUMM) 0.1 PUBS MCHC (33.0 - 37.0 G/DL) 32.5 L Toxicology Urine Opiates Screen (>2000 NG/ML) < 100.00 Methadone Screen (>300 NG/ML) < 40 Barbiturate Screen (>200 NG/ML) < 60 Ur Phencyclidine Scrn (>25 NG/ML) < 6.00 Amphetamines Screen (>1000 NG/ML) 138 U Benzodiazepines Scrn (>200 NG/ML) < 85 Urine Cocaine Screen (>300 NG/ML) < 50 Urine Cannabis Screen (>50 NG/ML) < 5.00 Urines Urine Color (YEL,AMB,STR) YEL Urine Clarity (CLEAR) CLEAR Urine pH (5.0 - 8.0) 5.5 Ur Specific [place] (1.001 - 1.035) 1.025 Urine Protein (NEG,<30 MG/DL) NEG Urine Ketones (NEG) NEG Urine Nitrite (NEG) NEG Urine Bilirubin (NEG) NEG Urine Urobilinogen (0.1 - 1.0 EU/dl) 0.2 Ur Leukocyte Esterase (NEG) NEG Ur Microscopic EXAM NOT REQUIRED Urine Hemoglobin (NEG) NEG Urine Glucose (N MG/DL) NEG 02/02 1810 Chemistry Sodium (137 - 145 mmol/L) 131 L Potassium (3.5 - 5.1 mmol/L) 4.1 Chloride (98 - 107 mmol/L) 103 Carbon Dioxide (22 - 30 mmol/L) 16 L Anion Gap (5 - 16) 13 BUN (9 - 20 mg/dL) 11 Creatinine (0.7 - 1.2 mg/dL) 0.6 L Estimated GFR (>60 ml/min) > 60 BUN/Creatinine Ratio (7 - 25 %) 18.3 Glucose (65 - 99 mg/dL) 99 Calcium (8.4 - 10.2 mg/dL) 8.0 L Magnesium (1.6 - 2.3 mg/dL) 1.9 Total Bilirubin (0.2 - 1.3 mg/dL) 0.6 AST (17 - 59 U/L) 42 ALT (21 - 72 U/L) 22 Alkaline Phosphatase (< 127 U/L) 72 Troponin I (<0.11 ng/ml) 0.01 Total Protein (6.3 - 8.2 g/dL) 5.6 L Albumin (3.5 - 5.0 g/dL) 2.5 L Globulin (1.9 - 4.2 gm/dL) 3.1 Albumin/Globulin Ratio (1.1 - 2.2 %) 0.8 L Coagulation PT (9.4 - 12.5 SEC) > 103.0 *H INR (0.90 - 1.17) > 10.0 *H Hematology CBC w Diff NO MAN DIFF REQ WBC (4.8 - 10.8 /CUMM) 10.1 RBC (4.70 - 6.10 /CUMM) 2.09 L Hgb (14.0 - 18.0 G/DL) 5.3 *L Hct (42 - 52 %) 16.7 *L MCV (80.0 - 94.0 FL) 80.0 MCH (27.0 - 31.0 PG) 25.5 L RDW (11.5 - 14.5 %) 23.3 H Plt Count (130 - 400 /CUMM) 259 MPV (7.4 - 10.4 FL) 8.1 Gran % (42.2 - 75.2 %) 75.1 Lymphocytes % (20.5 - 51.1 %) 18.2 L Monocytes % (1.7 - 9.3 %) 5.8 Eosinophils % (0 - 5 %) 0 Basophils % (0.0 - 2.0 %) 0.9 Absolute Granulocytes (1.4 - 6.5 /CUMM) 7.6 H Absolute Lymphocytes (1.2 - 3.4 /CUMM) 1.8 Absolute Monocytes (0.10 - 0.60 /CUMM) 0.6 Absolute Eosinophils (0.0 - 0.7 /CUMM) 0 Absolute Basophils (0.0 - 0.2 /CUMM) 0.1 PUBS MCHC (33.0 - 37.0 G/DL) 31.8 L Toxicology Serum Alcohol (<10 MG/DL) 35.0
--- NOTE | 2017-02-03 07:59 | NUR ---
2300 REC'D PT IN BED. A/O X3. CIWA 0-2. FIDGETY IN BED BUT STATES IT'S HIS NEUROPATHY. WILL INFORM MD BRYANT. HOME MEDS TO RESTART. SR ON THE MONITOR HR 90'S, SBP RANGING 90-100'S CORRELATING TO BOTH CUFFS. ON RA POX >95%, LS CLEAR & DIMINISHED AT THE BASES. HAS NOT VOIDED SINCE 2200 URINAL AT BEDSIDE. REMAINS NPO FOR NOW. ON PROTONIX GTT. NO C/O PAIN VOICED. SKIN TEARS TO TIFFANY LOWER FOREARM. WRAPPED W/KERLIX/DRSG. PETECHIAE & BRUISES ALL OVER THE BODY. 0025 H/H 5/16 & INR 5.10. HUNG 2ND UNITS OF FFP & PRBC. 0430 BOTH UNITS OF FFP COMPLETE @0220 & PRBC @0415. NO REACTION NOTED. 0600 PT HAD INC OF LG LOOSE LIQUID STOOL BLACK +VE & URINE MIXED. COMPLETE BED BATH GIVEN. PT C/O SOB. LS EW. INFORMED DR. ODALYS BRYANT. PT'S HOME MEDS RESTARTED. 0730 H/H 6.2 & INR 4.28. S/B DR. REDD ARAUZ. STATES NEEDS FOR BLOOD PRODUCTS. UPDATED ON PT'S STATUS TO DR. VILLEGAS ORDERED [facility].
--- NOTE | 2017-02-03 09:15 | PN- CRCU ---
Subjective HPI/Critical Care Issues: The patient is awake and alert. He reports having one melanotic stool early this morning. He denies hematemesis. He is currently on his third unit of packed red blood cells. He received 2 units of fresh frozen plasma with vitamin K. The patient's blood pressure has been in the 90s to low 100s however he has not had significant hypotension. He has good urine output. He complains of increased wheezing and a congested cough. There is no report of fever, chills, chest pain or abdominal pain. Objective Current Medications: Current Medications Sig/Lillie Start time Last Medication Dose Route Stop Time Status Admin Acetaminophen 650 MG Q6P PRN 02/03 2000 AC PO Acetaminophen 1,000 MG Q6P PRN 02/03 2000 AC IV Albuterol Sulfate 3 ML Q4P PRN 02/03 0815 AC 02/03 INH 0817 Albuterol Sulfate 2 PUF Q4-6 PRN PRN 02/03 0645 AC INH Budesonide/ 2 PUF BID 02/03 1000 AC Formoterol Fumarate INH Cyanocobalamin/ 1 BAG ONCE ONE 02/02 2030 DC 02/02 Thiamine/Pyridoxine IV 02/03 0429 2259 Dextrose/Water 1,000 ML Furosemide 20 MG ONCE ONE 02/03 0830 DC 02/03 IV 02/03 0831 0824 Gabapentin 300 MG Q8 02/03 0620 AC 02/03 PO 0808 Gabapentin 0 .STK-MED ONE 02/02 1939 DC PO Gabapentin 300 MG ONCE ONE 02/02 1930 DC 02/02 PO 02/02 1931 1941 Melatonin 3 MG ONCE ONE 02/02 2230 DC 02/03 PO 02/02 2231 0115 Ondansetron HCl 0 .STK-MED ONE 02/02 2019 DC .ROUTE Ondansetron HCl 4 MG ONCE ONE 02/02 2015 DC IV 02/02 2016 Pantoprazole Sodium 0 .STK-MED ONE 02/02 1824 DC IV Pantoprazole Sodium 40 MG Q5H 02/02 1800 AC 02/03 Sodium Chloride 100 ML IV 0443 Pantoprazole Sodium 40 MG ONCE ONE 02/02 1745 DC 02/02 IV 02/02 1746 1828 Phytonadione 0 .STK-MED ONE 02/02 1853 DC .ROUTE Phytonadione 10 MG ONCE ONE 02/02 1845 DC 02/02 IM 02/02 1846 1853 Potassium Chloride 20 MEQ ONCE ONE 02/03 0845 UNVr IV 02/03 0846 Sodium Chloride 1,000 ML Q8H 02/02 2000 AC 02/03 IV 0448 Sodium Chloride 1,000 ML BOLUS ONE 02/02 1800 DC 02/02 IV 02/02 1859 1828 Vital Signs & I&O Last 24 Hrs of Vitals and I&O: Vital Signs Date Time Temp Pulse Resp B/P B/P Pulse O2 O2 Flow FiO2 Mean Ox Delivery Rate 02/03 08 98.2 84 20 92/54 02/03 0800 98.2 84 20 92/54 97 Nasal 1.0L Cannula 02/03 0800 97 Nasal 1.0L Cannula 02/03 0600 70 20 127/81 02/03 0400 98.3 90 21 96/54 02/03 0400 95 Room Air 02/03 0200 98.6 93 22 96/60 05 0000 98.6 96 19 97/53 05 0000 98.6 96 19 97/53 97 Room Air 02/03 0000 97 Room Air 02/02 2300 99.1 103 18 96/55 02/02 2028 99.0 117 22 99/54 99 Room Air 02/02 1907 98.4 104 18 124/67 99 Nasal 2.0L Cannula 02/02 1845 Nasal 2.0L Cannula 02/02 1745 99.4 101 18 113/60 100 Nasal 2.0L Cannula Intake & Output 02/03 1600 02/03 0800 05 0000 Intake Total 1488 1515 Output Total 250 Balance 1488 1265 Intake, Blood 600 350 Product Intake, IV 888 1165 Intake, Oral 0 0 Output, Urine 250 Patient 193 lb Weight Weight Reported by Patient Measurement Method Physical Exam General Appearance: well developed/nourished, no apparent distress, mild distress Head: atraumatic, normal appearance Neck: normal inspection, supple Respiratory: normal breath sounds, chest non-tender, quiet respiration Cardiovascular: regular rate/rhythm, edema, gallop Gastrointestinal: normal bowel sounds, soft, non-tender Results Last 24 Hrs of Lab Results: Laboratory Tests 02/03/17 0625: Anion Gap 4 L, Estimated GFR > 60, Glucose 91, Calcium 7.2 L, Phosphorus 1.8 L, Magnesium 1.8, Total Bilirubin 1.1, AST 24, ALT 30, Troponin I 0.21 *H, Albumin 2.1 L, PT 44.3 *H, INR 4.28 *H, CBC w Diff NO MAN DIFF REQ, RBC 2.32 L , MCV 80.7, MCH 26.5 L, RDW 19.1 H, MPV 7.7, Gran % 58.5, Lymphocytes % 31.9, Monocytes % 8.2, Eosinophils % 0.7, Basophils % 0.7, Absolute Granulocytes 2.9, Absolute Lymphocytes 1.6, Absolute Monocytes 0.4, Absolute Eosinophils 0, Absolute Basophils 0, PUBS MCHC 32.8 L 02/03/17 0600: Troponin I Cancelled 02/03/17 0105: Troponin I 0.10, PT 52.7 *H, INR 5.10 *H 02/02/17 2308: CBC w Diff NO MAN DIFF REQ, RBC 2.02 L, MCV 79.3 L, MCH 25.7 L, RDW 20.1 H, MPV 8.3, Gran % 65.2, Lymphocytes % 25.5, Monocytes % 8.0, Eosinophils % 0.1, Basophils % 1.2, Absolute Granulocytes 4.5, Absolute Lymphocytes 1.8, Absolute Monocytes 0.6, Absolute Eosinophils 0, Absolute Basophils 0.1, PUBS MCHC 32.5 L 02/02/17 2215: Urine Opiates Screen < 100.00, Methadone Screen < 40, Barbiturate Screen < 60, Ur Phencyclidine Scrn < 6.00, Amphetamines Screen 138, U Benzodiazepines Scrn < 85, Urine Cocaine Screen < 50, Urine Cannabis Screen < 5.00, Urine Color YEL, Urine Clarity CLEAR, Urine pH 5.5, Ur Specific [place] 1.025, Urine Protein NEG, Urine Ketones NEG, Urine Nitrite NEG, Urine Bilirubin NEG, Urine Urobilinogen 0.2, Ur Leukocyte Esterase NEG, Ur Microscopic EXAM NOT REQUIRED, Urine Hemoglobin NEG, Urine Glucose NEG 02/02/17 1810: Anion Gap 13, Estimated GFR > 60, BUN/Creatinine Ratio 18.3, Glucose 99, Calcium 8.0 L, Magnesium 1.9, Total Bilirubin 0.6, AST 42, ALT 22, Alkaline Phosphatase 72, Troponin I 0.01, Total Protein 5.6 L, Albumin 2.5 L, Globulin 3.1, Albumin /Globulin Ratio 0.8 L, PT > 103.0 *H, INR > 10.0 *H, CBC w Diff NO MAN DIFF REQ , RBC 2.09 L, MCV 80.0, MCH 25.5 L, RDW 23.3 H, MPV 8.1, Gran % 75.1, Lymphocytes % 18.2 L, Monocytes % 5.8, Eosinophils % 0, Basophils % 0.9, Absolute Granulocytes 7.6 H, Absolute Lymphocytes 1.8, Absolute Monocytes 0.6, Absolute Eosinophils 0, Absolute Basophils 0.1, PUBS MCHC 31.8 L, Serum Alcohol 35.0 Impression/Plan Impression/Plan Impression/Plan: 1. Acute blood loss anemia, likely upper GI bleed in the setting of a supratherapeutic INR and coagulopathy induced by Coumadin. 2. History of alcohol abuse. 3. Increased shortness of breath with congested cough, likely related to fluid overload in the setting of multiple transfusions. 4. History of obstructive lung disease and active smoker, rule out COPD. 5. Electrolyte abnormalities. Recommendations: * Give 20 mg of IV Lasix now - nursing aware. * Monitor for CHF. * Check an echocardiogram. * Request a TRC for nebulizer treatments. * Monitor strict I's and O's. * Transfuse 2 additional units of packed red blood cells and recheck CBC. We'll maintain the hemoglobin greater than 7. * The patient has additional FFP ordered, will recheck INR with a goal of less than 3. * Continue IV Protonix drip. * EGD once INR is in therapeutic range. * EtOH withdrawal precautions ordered. * Continue banana bag. * Await vascular surgery input regarding recurrent DVTs. IVC filter? * DVT prophylaxis with Alps. * Continue mild to moderate pain pathway. * Continue to monitor closely in the critical care unit.
[2017-02-03 12:32] LABS: PT 26.7 SEC (9.4-12.5)
--- NOTE | 2017-02-03 12:46 | NUR ---
Patient is alert and oriented x's 3, able to follow commands and answer questions appropriately. restless in bed at times. CIWA score 0-1. NSR on tele monitor, HR= 80-90's. SBP: 90-100's and pt denies chest pain. Pedal pulses are + with doppler- Hx of recurrent DVT's with the most recent being three weeks ago per patient. On 1 L NC, expiratory wheeze noted. TC's with nebs- Iv lasix given at 0800 this morning when crackles were noted to the bilateral lower bases. He is voiding clear yellow urine in the urinal with good output since lasix given. Abdomen is soft and non tender with + bowel sounds. Guiac + dark tarry stool noted over night. NPO at this time for anticipated endoscopy onces INR becomes therapeutic. patient is s/p 4 units of FFP. INR drawen at 1205 and results are pending at this time. The 4th unit of prbc is currently infusing and a repeat CBC to be drawn after. Skin tears are noted to his upper extremities- He is s/p a fall at home- minimal areas of eccymosis. No areas of pressure injury are currently noted. Patient continues to deny any pain. Banana bag has finished and NS is now infusing at 125mls/hr- also receiving potassium boluses per order. Protonix gtt infusing. EKG and troponin drawn at 1205- Vitals have remained stable. Will continue to closely monitor patient.
[2017-02-03 14:16] LABS: ABSOLUTE BASOPHIL COUNT 0 /CUMM (0.0-0.2); ABSOLUTE EOSINOPHIL COUNT 0.1 /CUMM (0.0-0.7); MEAN CORPUSCULAR VOLUME 80.1 FL (80.0-94.0); RED BLOOD CELL CT 2.82 /CUMM (4.70-6.10); WHITE BLOOD CELL COUNT 4.9 /CUMM (4.8-10.8)
[2017-02-03 14:19] LABS: ABSOLUTE GRANULOCYTE CT 3.2 /CUMM (1.4-6.5); ABSOLUTE LYMPH COUNT 1.2 /CUMM (1.2-3.4); ABSOLUTE MONOCYTE COUNT 0.4 /CUMM (0.10-0.60); BASOPHIL % 0.3 % (0.0-2.0); EOSINOPHIL % 1.9 % (0-5); GRANULOCYTE % 65.8 % (42.2-75.2); HEMATOCRIT 22.5 % (42-52); MEAN CORPUSCULAR HGB 26.5 PG (27.0-31.0); MEAN CORPUSCULAR HGB CONC 33.1 G/DL (33.0-37.0); MEAN PLATELET VOLUME 7.9 FL (7.4-10.4); PLATELET COUNT 139 /CUMM (130-400); RBC DISTRIBUTION WIDTH 17.2 % (11.5-14.5)
--- NOTE | 2017-02-03 15:48 | ULTRASOUND REPORT ---
EXAMINATION: BILATERAL LOWER EXTREMITY VENOUS ULTRASOUND CLINICAL INFORMATION: Bilateral leg swelling. Presumptive diagnosis of bilateral DVT. Positive long segment near occlusive thrombus previously seen in the left lower extremity from the common femoral vein down to the popliteal vein on 12/01/2016. COMPARISON: Venous Doppler ultrasound dated 12/01/2016. TECHNIQUE: Doppler spectral analysis and color flow Doppler imaging was performed of the lower extremities. Compression and augmentation maneuvers were performed. FINDINGS: RIGHT LOWER EXTREMITY VENOUS DOPPLER ULTRASOUND: The right femoral vein, greater saphenous vein takeoff, femoral vein, and popliteal vein are normally compressible with normal augmentation responses and phasic changes seen with Doppler imaging. The midcalf peroneal and posterior tibial veins are patent as well. No popliteal cyst is seen. LEFT LOWER EXTREMITY VENOUS DOPPLER ULTRASOUND: There is now partial flow visualized within the proximal common femoral vein and the popliteal vein. There is an occlusive echogenic thrombus within the mid and distal common femoral vein, the greater saphenous vein takeoff, and the femoral vein. The calf veins are only partially visualized, but are compressible and unremarkable to the extent seen. IMPRESSION: 1. Partial recanalization of the previously seen extensive left lower extremity near occlusive DVT is seen with now some flow visualized within the proximal common femoral vein and in the popliteal vein. 2. No evidence of deep venous thrombosis in the right lower extremity.
[2017-02-03 22:57] LABS: ABSOLUTE BASOPHIL COUNT 0.1 /CUMM (0.0-0.2); ABSOLUTE EOSINOPHIL COUNT 0 /CUMM (0.0-0.7); ABSOLUTE GRANULOCYTE CT 3.4 /CUMM (1.4-6.5); ABSOLUTE LYMPH COUNT 1.5 /CUMM (1.2-3.4); ABSOLUTE MONOCYTE COUNT 0.3 /CUMM (0.10-0.60); BASOPHIL % 1.5 % (0.0-2.0); EOSINOPHIL % 0.9 % (0-5); GRANULOCYTE % 63.6 % (42.2-75.2); HEMATOCRIT 23.1 % (42-52); MEAN CORPUSCULAR HGB 26.1 PG (27.0-31.0); MEAN CORPUSCULAR HGB CONC 32.4 G/DL (33.0-37.0); MEAN CORPUSCULAR VOLUME 80.8 FL (80.0-94.0); MEAN PLATELET VOLUME 8.4 FL (7.4-10.4); PLATELET COUNT 141 /CUMM (130-400); RBC DISTRIBUTION WIDTH 17.3 % (11.5-14.5); RED BLOOD CELL CT 2.86 /CUMM (4.70-6.10); WHITE BLOOD CELL COUNT 5.3 /CUMM (4.8-10.8)
[2017-02-03 23:01] LABS: PT 24.5 SEC (9.4-12.5)
[2017-02-04] VITALS (8 sets, daily range): BP systolic 103–127; BP diastolic 50–70
--- NOTE | 2017-02-04 00:50 | NUR ---
AVSS.A/OX3.FOLLOW COMMANDS.CIWA @0.NO C'O GEN DISCOMFORT/SEIZURES.ROBISON WEAKLY WITH +cMS.+DOPPLER PULSES.PROTONIX AND IVF CONT VIA PIV SITE.K REPLACED WITH NO DIFFICULTIES.NPO.?ENDOSCOPY IN AM.LEFT ARM DSG INTACT.ECCHYMOTIC REGION TO TIFFANY UPPER TRUNKS.PLAN OF CARE REVIEWED.
[2017-02-04 05:42] LABS: ABSOLUTE BASOPHIL COUNT 0 /CUMM (0.0-0.2); ABSOLUTE EOSINOPHIL COUNT 0.1 /CUMM (0.0-0.7); ABSOLUTE GRANULOCYTE CT 4.6 /CUMM (1.4-6.5); ABSOLUTE LYMPH COUNT 1.4 /CUMM (1.2-3.4); ABSOLUTE MONOCYTE COUNT 0.4 /CUMM (0.10-0.60); BASOPHIL % 0.5 % (0.0-2.0); EOSINOPHIL % 0.9 % (0-5); HEMATOCRIT 23.5 % (42-52); MEAN CORPUSCULAR HGB 26.6 PG (27.0-31.0); MEAN CORPUSCULAR HGB CONC 32.5 G/DL (33.0-37.0); MEAN CORPUSCULAR VOLUME 81.8 FL (80.0-94.0); MEAN PLATELET VOLUME 8.5 FL (7.4-10.4); PLATELET COUNT 131 /CUMM (130-400); RBC DISTRIBUTION WIDTH 17.4 % (11.5-14.5); RED BLOOD CELL CT 2.87 /CUMM (4.70-6.10); WHITE BLOOD CELL COUNT 6.4 /CUMM (4.8-10.8)
[2017-02-04 06:00] LABS: PT 23.3 SEC (9.4-12.5)
--- NOTE | 2017-02-04 06:50 | PN- Resident CRCU ---
Subjective HPI/CRCU Issues: Mr. Flores seen and examined at bedside this AM. He is laying comfortably in bed in no acute distress. He is amenable to EGD early this afternoon in the GI suite. Patient denies dark or bloody vomiting/stool. He denies fever, chills, chest pain, abdominal pain, nausea. He continues to endorse slight shortness of breath with cough and occasional wheeze. 24 Hour Events: One episode of ventricular tachycardia (3 beat) around 230 AM, otherwise no overnight telemetry events. Vital signs over the last 24 hours: T 98.0-98.9, HR 82-95, RR 17-24, BP 87-123/51-64, O2 saturation 93-100% on 1 L NC. Objective Vital Signs & I&O Last 8 Hrs of Vitals and I&O: T 98.0-98.9, HR 82-95, RR 17-24, BP 87-123/51-64, O2 saturation 93-100% on 1 L NC. Exam General Appearance: well developed/nourished, no apparent distress, alert, awake , comfortable Head: atraumatic, normal appearance Ears, Nose, Throat: hearing grossly normal, moist mucus membranes Neck: normal inspection, full range of motion Respiratory: chest non-tender, no respiratory distress, Bilateral basal crackles and occasional wheezing appreciated. Cardiovascular: regular rate/rhythm, normal peripheral pulses Gastrointestinal: Abdomen slightly distended, soft, non-tender. Extremities: Bilateral lower extremity edema. No ALPS on LLE d/t DVT. Cranial Nerves: normal hearing, normal speech Skin: intact, warm/dry, Scattered brusing Skin Temp/Moisture Exam: Warm/Dry Nutrition Nutrition: NPO Current Medications: Current Medications Sig/Lillie Start time Last Medication Dose Route Stop Time Status Admin Acetaminophen 650 MG Q6P PRN 02/03 2000 AC PO Acetaminophen 1,000 MG Q6P PRN 02/03 2000 AC IV Albuterol Sulfate 3 ML Q4P PRN 02/03 0815 AC 02/04 INH 0502 Albuterol Sulfate 2 PUF Q4-6 PRN PRN 02/03 0645 AC INH Budesonide/ 2 PUF BID 02/03 1000 AC 02/03 Formoterol Fumarate INH 2224 Furosemide 20 MG ONCE ONE 02/05 0815 DC 02/04 IV 02/05 816 0817 Gabapentin 300 MG Q8 02/03 0620 AC 02/04 PO 0500 Magnesium Sulfate 1 GM ONCE ONE 02/04 0700 AC 02/04 Dextrose/Water 100 ML IV 02/04 1059 0816 Pantoprazole Sodium 40 MG Q5H 02/02 1800 AC 02/04 Sodium Chloride 100 ML IV 0732 Potassium Chloride 10 MEQ Q1H 02/04 0700 DC IV 02/04 0801 Potassium Chloride 10 MEQ Q1H 02/03 2330 DC 02/04 IV 02/04 0031 0214 Potassium Chloride 10 MEQ Q1H 02/03 0915 DC 02/03 IV 02/03 1116 1336 Potassium Phosphate 15 mMol ONE ONE 02/04 0300 DC Sodium Chloride 250 ML IV 02/04 0703 Sodium Chloride 1,000 ML Q8H 02/02 2000 AC 02/04 IV 0306 Sodium Phosphate 15 mMol ONE ONE 02/04 0300 DC 02/04 Sodium Chloride 250 ML IV 02/04 0703 0306 ECHO Findings: CONCLUSIONS 1. Normal EF of 60%. 2. Trace mitral regurgitation. 3. Mild to moderate tricuspid regurgitation. 4. Moderate pulmonary hypertension. US Findings: Venous doppler: IMPRESSION: 1. Partial recanalization of the previously seen extensive left lower extremity near occlusive DVT is seen with now some flow visualized within the proximal common femoral vein and in the popliteal vein. 2. No evidence of deep venous thrombosis in the right lower extremity. Impression/Plan Impression/Problem List Impression: Mr. Flores is a pleasant 61 year old male with PMH asthma, dyslipidemia, alcohol abuse, previous alcohol withdrawl seizure, and DVT x 2 (2014, August 2016) currently on coumadin who presented with chief complaint of several episodes of coffe-ground emesis and dark, tarry stools without overt blood/ clots. Associated symptoms at time of presentation included easy bleeding/ brusing of his extremities and dyspnea on exertion. Of note, patient was started on anticoagulation with his second episode of DVT in August of 2016. He was inadvertently placed on both xarelto by his PCP and Coumadin by Dr. De Santiago, vascular surgery, until 1-2 weeks later this was noted and his PCP discontinued xarelto. In the ED: Vital signs showed a Tmax of 994. HR 117, RR 22, BP 99/54 and O2 saturation of 99% on room air. Labs were significant for H&H 5.3/16.7, Plt 259, Na 131, K 4.1, HCO3 16, Cre 0.6 , Ca 8, Albumin 2.5, INR >10. EKG showed sinus tachycardia and no significant ST/T wave changes. Patient is currently admitted to the ICU and the following is the management: 1. Acute blood loss anemia secondary to upper GI bleed in the setting of supratherapeutic INR * GI consult placed, instructed to keep patient NPO for EGD today * Continue to hold coumadin * IVF with NS at 125 cc/h on hold while patient gets 1 banana bag * CBC now stable >7/21 after 4 units prbcs total, will continue to trend and transfuse as needed to maintain appropriate H&H * INR now therapeutic at 2.24 after 4 units FFP, stable for EGD * Continue IV protonix drip * Strict Is/Os * Continue to monitor for bleeding 2. Elevated troponins * Troponins peaked at 0.21, have since trended down * Patient denies any chest pain or cardiac symptoms * Cardio consult placed and appreciated, follow recomendations * Echocardiogram shows normal EF at 60%, trace MR, mild-mod TR, moderate pulm HTN 3. Alcohol abuse * CIWA scoring, patient scoring 0 * Banana bag daily * Ativan PRN per CIWA protocol 4. History of DVT * Bilateral lower extremity venous dopplers shows extensive lef lower extremity near occlusive DVT, no RLE DVT * Hold coumadin due to acute blood loss anemia * Vascular sugery evaluated patient and suggested retrievable IVC filter; will have this placed with IR tomorrow, order in 5. Increasing shortness of breath in the setting of asthma * Consideration for fluid overload in the setting of frequent transfusions * Continue albuterol inhaler PRN for shortness of breath * Patient was noted to have shortness of breath and bilateral wheezing on exam, given 20 mg IV lasix x 1 again today due to crackles on exam * Consideration for COPD as patient has been been smoking for 20 years, 1/2 PPD * Tobacco cessation counseling provided * Echo also shows moderate pulmonary HTN 6. Chronic pain * Continue neurontin 300 mg PO Q8 * PO tylenol for mild pain, IV tylenol for moderate pain FULL CODE DVTP: ALPS NPO pending EGD Mild-moderate pain pathway Problem List: 1. Asthma 2. ETOH ABUSE 3. Pedal edema 4. DVT (deep venous thrombosis) 5. GI bleed Pain Ratin Tomorrow's Labs & Rationales: CBC (acute blood loss anemia) ICU bundle (hyponatermia, hyperchloremia) INR (supratherapeutic INR) Plan DVT/Prophylaxis: mechanical (no pharm 2/2 acute blood loss)
--- NOTE | 2017-02-04 07:58 | ECHOCARDIOGRAM REPORT ---
MCKAY BECKMAN Age: 61 : 1955 Gender: M Exam Date: 02/03/2017 17:27 Exam Location: [facility] Ht (in): 70 Wt (lb): 192 BSA: 2.09 BP: 95 / 54 Ordering Physician: LAVELLE VILLEGAS MD Referring Physician: LAVELLE VILLEGAS MD Technologist: Jeana Redding CHAR Room Number: 111 Indications: MYOCARDIAL ISCHEMIA/NE Rhythm: Sinus Technical Quality: fair FINDINGS Left Ventricle Normal left ventricular size, wall thickness and systolic function with no obvious regional wall motion abnormalities. Normal left ventricular diastolic filling pattern for age. The ejection fraction is visually estimated at 60%. Right Ventricle The right ventricle is normal in size and function. Right Atrium The right atrium is normal in size. Left Atrium The left atrium is normal in size. The interatrial septum is intact. Mitral Valve The mitral valve is normal in structure and function. There is trace mitral regurgitation. Aortic Valve Structurally normal aortic valve without significant sclerosis or stenosis. There is no aortic regurgitation. Tricuspid Valve The tricuspid valve is normal in structure and function. There is mild to moderate tricuspid regurgitation. Pulmonary artery systolic pressure is moderately elevated to 53.4mmHg. Pulmonic Valve Structurally normal pulmonic valve. There is no pulmonic regurgitation. Pericardium Normal pericardium without effusion. No pleural effusion. Great Vessels Normal aortic root dimension. The aortic arch and great vessels are not well visualized. CONCLUSIONS 1. Normal EF of 60%. 2. Trace mitral regurgitation. 3. Mild to moderate tricuspid regurgitation. 4. Moderate pulmonary hypertension. Sergio Partida M.D. (Electronically Signed) Final Date: 04 Feb 2017 07:57 MEASUREMENTS (Male / Female) Normal Values 2D ECHO LV Diastolic Diameter PLAX 4.1 cm 4.2 - 5.9 / 3.9 - 5.3 cm LV Systolic Diameter PLAX 2.8 cm 2.1 - 4.0 cm LV Fractional Shortening PLAX 31.7 % 25 - 46 % LV Ejection Fraction 2D Teich 60.2 % IVS Diastolic Thickness 1.1 cm LVPW Diastolic Thickness 1.1 cm LV Relative Wall Thickness 0.5 RV Internal Dim ED PLAX 3.3 cm 1.9 - 3.8 cm LVOT Diameter 1.8 cm Aortic Root Diameter 2.8 cm LA Systolic Diameter LX 3.8 cm 3.0 - 4.0 / 2.7 - 3.8 cm LA Volume 29.0 cm 18 - 58 / 22 - 52 cm Ascending Aorta Diameter 3.3 cm DOPPLER AV Peak Velocity 155.0 cm/s AV Peak Gradient 9.6 mmHg AV Mean Velocity 103.0 cm/s AV Mean Gradient 5.0 mmHg AV Velocity Time Integral 31.4 cm LVOT Peak Velocity 138.0 cm/s LVOT Peak Gradient 7.6 mmHg LVOT Mean Velocity 86.3 cm/s LVOT Mean Gradient 4.0 mmHg LVOT Velocity Time Integral 26.7 cm LVOT Stroke Volume 67.9 cm AV Area Cont Eq vti 2.2 cm AV Area Cont Eq pk 2.3 cm MV Peak Velocity 145.0 cm/s MV Peak Gradient 8.4 mmHg MV Mean Velocity 82.4 cm/s MV Mean Gradient 3.0 mmHg Mitral E Point Velocity 131.0 cm/s Mitral A Point Velocity 67.1 cm/s Mitral E to A Ratio 2.0 MV PHT Velocity 146.0 cm/s MV Deceleration Williamson 515.0 cm/s MV Pressure Half Time 85.0 ms MV Area PHT 2.6 cm MV Deceleration Time 238.0 ms TR Peak Velocity 348.0 cm/s TR Peak Gradient 48.4 mmHg Right Atrial Pressure 5.0 mmHg Pulmonary Artery Systolic Pressu 53.4 mmHg Right Ventricular Systolic Press 53.4 mmHg PV Peak Velocity 91.9 cm/s PV Peak Gradient 3.4 mmHg PV Mean Velocity 69.9 cm/s PV Mean Gradient 2.0 mmHg PV Velocity Time Integral 17.8 cm LV E' Lateral Velocity 13.6 cm/s Mitral E to LV E' Lateral Ratio 9.6 LV E' Septal Velocity 10.3 cm/s Mitral E to LV E' Septal Ratio 12.7
--- NOTE | 2017-02-04 08:56 | NUR ---
RESUMED PT CARE AT 0630AM. PT A/O, NO NEURO DEFECITS NOTED. CIWA 0. NSR 90'S, BP 118/70 MANUALLY. PT HAS A PRODUCTIVE COUGH W SMALL AMT OF CLR SECRETIONS. EXPIRATORY WHEEZING AND CRACKLES HEARD. PT GIVEN 20 MG IV LASIX X 1. REMAINS ON PROTONIX GTT AND NS IVF. PER GI, PT AUTHORIZED TO HAVE ICE CHIPS UNTIL 9 AM THEN PT WILL RESUME NPO STATUS. EXPECTING UPPER GI SERIES TO BE PERFORMED THIS AFTERNOON. K AND MAG REPLETION UNDERWAY.
--- NOTE | 2017-02-04 09:07 | PN- CRCU ---
Subjective HPI/Critical Care Issues: The patient is awake and alert. He reports no further bleeding. His blood pressure remains in the 90s to low 100s. The patient's history status stable noting he is in the mid 90s on 1 L nasal cannula. He remains afebrile. He is NPO pending an EGD which is scheduled for later today. Objective Current Medications: Current Medications Sig/Lillie Start time Last Medication Dose Route Stop Time Status Admin Acetaminophen 650 MG Q6P PRN 02/03 2000 AC PO Acetaminophen 1,000 MG Q6P PRN 02/03 2000 AC IV Albuterol Sulfate 3 ML Q4P PRN 02/03 0815 AC 02/04 INH 0502 Albuterol Sulfate 2 PUF Q4-6 PRN PRN 02/03 0645 AC INH Budesonide/ 2 PUF BID 02/03 1000 AC 02/03 Formoterol Fumarate INH 2224 Furosemide 20 MG ONCE ONE 02/04 0815 DC 02/04 IV 02/04 0816 0817 Gabapentin 300 MG Q8 02/03 0620 AC 02/04 PO 0500 Magnesium Sulfate 1 GM ONCE ONE 02/04 0700 AC 02/04 Dextrose/Water 100 ML IV 02/04 1059 0816 Pantoprazole Sodium 40 MG Q5H 02/02 1800 AC 02/04 Sodium Chloride 100 ML IV 0732 Potassium Chloride 10 MEQ Q1H 02/04 0700 DC IV 02/04 0801 Potassium Chloride 10 MEQ Q1H 02/03 2330 DC 02/04 IV 02/04 0031 0214 Potassium Chloride 10 MEQ Q1H 02/03 0915 DC 02/03 IV 02/03 1116 1336 Potassium Chloride 20 MEQ ONCE ONE 02/03 0845 CAN IV 02/03 0846 Potassium Phosphate 15 mMol ONE ONE 02/04 0300 DC Sodium Chloride 250 ML IV 02/04 0703 Sodium Chloride 1,000 ML Q8H 02/02 2000 AC 02/04 IV 0306 Sodium Phosphate 15 mMol ONE ONE 02/04 0300 DC 02/04 Sodium Chloride 250 ML IV 02/04 0703 0306 Vital Signs & I&O Last 24 Hrs of Vitals and I&O: Vital Signs Date Time Temp Pulse Resp B/P B/P Pulse O2 O2 Flow FiO2 Mean Ox Delivery Rate 02/05 800 99.1 92 21 118/70 02/04 08 95 Nasal 1.0L Cannula 05/11 0800 99.1 92 21 118/70 95 Nasal 1.0L Cannula 02/04 0515 94 Nasal 1.0L Cannula 02/04 0318 94 Nasal 1.0L Cannula 02/04 0000 98.7 85 20 103/57 02/04 0000 94 Nasal 1.0L Cannula 02/04 0000 98.6 85 20 108/60 94 02/03 2200 92 20 96/55 02/03 2020 95 Nasal 1.0L Cannula 02/03 2000 98.9 86 20 96/58 02/03 2000 95 Nasal 1.0L Cannula 02/03 1800 82 17 94/58 02/03 1600 98.2 92 20 94/54 02/03 1600 94 Nasal 1.0L Cannula 02/03 1600 98.0 92 18 94/50 94 Nasal 1.0L Cannula 02/03 1400 88 18 95/54 02/03 1200 85 20 104/60 02/03 1200 96 Nasal 1.0L Cannula 02/03 1000 88 22 100/51 Intake & Output 02/04 1600 02/04 0800 02/04 0000 Intake Total 735 1640 Output Total 380 1000 Balance 355 640 Intake, IV 735 1160 Intake, Oral 480 Output, Urine 380 1000 Exam General Appearance: no apparent distress, alert, comfortable Head: atraumatic, normal appearance Neck: supple Respiratory: bilateral wheezing scattered throughout, lungs expand symmetrically Cardiovascular: regular rate/rhythm Abdomen: normal bowel sounds, soft, non-tender Extremities: no edema Skin: intact, normal color, warm/dry Results Last 24 Hrs of Lab Results: Laboratory Tests 02/04/17 0445: Anion Gap 7, Estimated GFR > 60, Glucose 80, Calcium 7.1 L, Phosphorus 2.6, Magnesium 1.7, Total Bilirubin 1.8 H, AST 27, ALT 31, Albumin 2.3 L, PT 23.3 H, INR 2.24 H, CBC w Diff NO MAN DIFF REQ, RBC 2.87 L, MCV 81.8, MCH 26.6 L, RDW 17.4 H, MPV 8.5, Gran % 71.0, Lymphocytes % 21.2, Monocytes % 6.4, Eosinophils % 0.9, Basophils % 0.5, Absolute Granulocytes 4.6, Absolute Lymphocytes 1.4, Absolute Monocytes 0.4, Absolute Eosinophils 0.1, Absolute Basophils 0, PUBS MCHC 32.5 L 02/03/17 2200: Anion Gap 5, Estimated GFR > 60, Glucose 88, Calcium 7.1 L, Phosphorus 1.9 L, Magnesium 1.7, Total Bilirubin 1.9 H, AST 28, ALT 34, Albumin 2.3 L, PT 24.5 H, INR 2.35 H, CBC w Diff NO MAN DIFF REQ, RBC 2.86 L, MCV 80.8, MCH 26.1 L, RDW 17.3 H, MPV 8.4, Gran % 63.6, Lymphocytes % 28.2, Monocytes % 5.8, Eosinophils % 0.9, Basophils % 1.5, Absolute Granulocytes 3.4, Absolute Lymphocytes 1.5, Absolute Monocytes 0.3, Absolute Eosinophils 0, Absolute Basophils 0.1, PUBS MCHC 32.4 L 02/03/17 1400: CBC w Diff NO MAN DIFF REQ, RBC 2.82 L, MCV 80.1, MCH 26.5 L, RDW 17.2 H, MPV 7.9, Gran % 65.8, Lymphocytes % 24.8, Monocytes % 7.2, Eosinophils % 1.9, Basophils % 0.3, Absolute Granulocytes 3.2, Absolute Lymphocytes 1.2, Absolute Monocytes 0.4, Absolute Eosinophils 0.1, Absolute Basophils 0, PUBS MCHC 33.1 02/03/17 1204: Troponin I 0.19 *H, PT 26.7 H, INR 2.57 H Diagnostic Data ECHO Findings: 1. Normal EF of 60%. 2. Trace mitral regurgitation. 3. Mild to moderate tricuspid regurgitation. 4. Moderate pulmonary hypertension. US Findings: 1. Partial recanalization of the previously seen extensive left lower extremity near occlusive DVT is seen with now some flow visualized within the proximal common femoral vein and in the popliteal vein. 2. No evidence of deep venous thrombosis in the right lower extremity. Impression/Plan Impression/Plan Impression/Plan: 1. Acute blood loss anemia, likely upper GI bleed in the setting of a supratherapeutic INR and coagulopathy induced by Coumadin. 2. History of alcohol abuse. 3. COPD with mild bronchospasm. 4. Electrolyte abnormalities. 5. Positive troponin. Recommendations: * Monitor for CHF. * Cardiology consult requested - Dr. Partida will see the patient later today. * Continue TR for nebulizer treatments. * Monitor strict I's and O's. * Monitor CBC every 12 hours today. Keep Hgb greater than 21. * Continue IV Protonix drip. * EGD scheduled for later today. * Monitor on EtOH withdrawal precautions. * Continue MVI/thiamine/folate. * Await vascular surgery input regarding recurrent DVTs. IVC filter? * DVT prophylaxis with Alps. * Continue mild to moderate pain pathway. * Continue to monitor closely in the critical care unit downgraded by GI.
--- NOTE | 2017-02-04 09:51 | Cons- Vascular Surgery ---
General Information and HPI Consulting Request Date of Consult: 02/04/17 Requested By: DALJIT IBRAHIM,GEORGE Reason for Consult: GI bleed while anticoagulated for DVT Source of Information: patient, old records History of Present Illness: This patient is a very difficult historian. He is uncertain of the physicians treating him, or what he has had done to him in the past. There is a large incision along the medial right thigh, but the patient does not know what that was for. From the medical record, I was able to learn he has had a DVT in 11/2016 (extensive). He presented to this admission with a GI bleed while anti- coagulated for the DVT. His anti-coagulation is being reversed for endoscopy. Allergies/Medications Allergies: Coded Allergies: codeine (Mild, SHAKES 12/01/16) Home Med List: Albuterol Sulfate (Ventolin Hfa) 90 MCG HFA.AER.AD 2 PUF INH Q4-6 PRN PRN SHORTNESS OF BREATH Gabapentin (Neurontin) 300 MG CAPSULE 1 CAP PO TID NERVE PAIN (Reported) Mometasone/Formoterol (Dulera 200 Mcg/5 Mcg Inhaler) 200 MCG-5 MCG/ACTUATION HFA.AER.AD 2 PUF INH BID ASTHMA (Reported) Pravastatin Sodium (Pravachol) 40 MG TABLET 1 TAB PO DAILY CHOLESTEROL ( Reported) Ranitidine HCl 300 MG TABLET 1 TAB PO QPM GI (Reported) Warfarin Sodium (Jantoven) 7.5 MG TABLET 1 TAB PO DAILY BLOOD THINNER ( Reported) Current Medications: Current Medications Sig/Lillie Start time Last Medication Dose Route Stop Time Status Admin Acetaminophen 650 MG Q6P PRN 02/03 2000 AC PO Acetaminophen 1,000 MG Q6P PRN 02/03 2000 AC IV Albuterol Sulfate 3 ML Q4P PRN 02/03 0815 AC 02/04 INH 0939 Albuterol Sulfate 2 PUF Q4-6 PRN PRN 02/03 0645 AC INH Budesonide/ 2 PUF BID 02/03 1000 AC 02/04 Formoterol Fumarate INH 0933 Cyanocobalamin/ 1 BAG ONCE ONE 02/04 915 AC Thiamine/Pyridoxine IV 02/04 1714 Dextrose/Water 1,000 ML Furosemide 20 MG ONCE ONE 02/05 0815 DC 02/04 IV 02/04 0816 0817 Gabapentin 300 MG Q8 02/03 0620 AC 02/04 PO 0500 Magnesium Sulfate 1 GM ONCE ONE 02/04 0700 AC 02/04 Dextrose/Water 100 ML IV 02/04 1059 0816 Pantoprazole Sodium 40 MG Q5H 02/02 1800 AC 02/04 Sodium Chloride 100 ML IV 0732 Potassium Chloride 10 MEQ Q1H 02/04 0700 DC 02/04 IV 02/04 0801 0933 Potassium Chloride 10 MEQ Q1H 02/03 2330 DC 02/04 IV 02/04 0031 0214 Potassium Chloride 10 MEQ Q1H 02/03 0915 DC 02/03 IV 02/03 1116 1336 Potassium Phosphate 15 mMol ONE ONE 02/04 0300 DC Sodium Chloride 250 ML IV 02/04 0703 Sodium Chloride 1,000 ML Q8H 02/02 2000 AC 02/04 IV 0306 Sodium Phosphate 15 mMol ONE ONE 02/04 0300 DC 02/04 Sodium Chloride 250 ML IV 02/04 0703 0306 Past History Medical History Blood Transfusion Hx: Yes Neurological: peripheral neuropathy EENT: NONE Cardiovascular: hyperlipidemia Respiratory: asthma Gastrointestinal: NONE Hepatic: NONE Renal: NONE Musculoskeletal: NONE Psychiatric: alcohol dependence Endocrine: NONE Blood Disorders: DVT Cancer(s): NONE 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 , Age 62. FATHER (HEART CONDITION). , Age 60+. Psychosocial History Where Do You Live? Home Services at Home: None Smoking Status: Current Everyday Smoker ETOH Use: heavy use Exam & Diagnostic Data Vital Signs and I&O Vital Signs Date Time Temp Pulse Resp B/P B/P Pulse O2 O2 Flow FiO2 Mean Ox Delivery Rate 02/04 08 99.1 92 21 118/70 02/04 0800 95 Nasal 1.0L Cannula 02/04 08 99.1 92 21 118/70 95 Nasal 1.0L Cannula 02/04 0515 94 Nasal 1.0L Cannula 02/04 318 94 Nasal 1.0L Cannula 02/04 0000 98.7 85 20 103/57 02/04 94 Nasal 1.0L Cannula 02/04 0000 98.6 85 20 108/60 94 02/03 2200 92 20 96/55 02/04 2020 95 Nasal 1.0L Cannula 02/04 2000 98.9 86 20 96/58 05/10 2000 95 Nasal 1.0L Cannula 02/03 1800 82 17 94/58 / 1600 98.2 92 20 94/54 02/03 1600 94 Nasal 1.0L Cannula 02/03 1600 98.0 92 18 94/50 94 Nasal 1.0L Cannula 02/03 1400 88 18 95/54 02/03 1200 85 20 104/60 / 1200 96 Nasal 1.0L Cannula 02/03 1000 88 22 100/51 Intake & Output 02/04 1600 02/04 0800 02/04 0000 02/03 1600 02/03 0800 02/03 0000 Intake Total 735 1640 2640 1488 1515 Output Total 380 1000 2350 250 Balance 355 117 031 1081 1265 Intake, Blood 1350 600 350 Product Intake, IV 735 1160 8577 628 3182 Intake, Oral 480 0 0 Output, Urine 380 1000 2350 250 Patient 87.543 kg Weight Weight Reported by Patient Measurement Method Physical Exam: Palpable DP bilaterally Minimal edema noted Physical Exam General Appearance: well developed/nourished, alert Peripheral Pulses: 1+ dorsalis pedis (R), 1+ dorsalis pedis (L) Extremities: normal capillary refill, no edema Assessment/Plan Assessment/Plan Hx of extensive DVT in L leg. Per his outside surgeon (Dr Pereyra [place]), he has had a R femoropopliteal bypass with greater saphenous vein, and a L leg atherectomy, both in 2013. He has not followed up with their office in 2 years. Given his incomplete treatment for his DVT (3 months, minimum), and his need to hold anti-coagulation, I would recommend retrievable IVC filter placement, and resumption of anti-coagulation when clinically acceptable. Consult Acknowledgment - Thank you for your consult request. Attending MD Review Statement Attending Statement Attending MD Statement: examined this patient
--- NOTE | 2017-02-04 11:02 | Cons- Cardiology ---
General Information and HPI Consulting Request Date of Consult: 02/04/17 Requested By: DALJIT IBRAHIM,GEORGE History of Present Illness: This patient is a 61 year old male with history of dyslipidemia and asthma. He also carries a history of DVT and has been on coumadin. He was brought to the ER for evaluation of coffee ground emesis and dark stools consistent with an upper GI bleed. He also reports bruising and bleeding through superficial skin tears. In the ER the patient was found to be severely anemic and his troponin is noted to be mildy elevated. This patient reports bilateral leg swelling that was refractory to diuretic therapy. He otherwise denies any chest pain, pressure, tightness, heartburn, lightheadedness or palpitations. He did note some mild shortness of breath yesterday. To review this patient's prior history, he had a right DVT in 2014 and is s/p throbectomy with stent. He is now on chronic anticoagulation and mistakenly took both Xarelto and Coumadin together. He started having nosebleeds associated with skin bruises. His INR was supratherapeutic and Coumadin is being held. Of the note, patient has a history of chronic alcohol abuse drinks about 2-3 beers on daily basis. He was hospitalized in [facility] 2013 for alcohol abuse and withdrawal was on Ativan drip in the ICU. Allergies/Medications Allergies: Coded Allergies: codeine (Mild, SHAKES 12/01/16) Home Med List: Albuterol Sulfate (Ventolin Hfa) 90 MCG HFA.AER.AD 2 PUF INH Q4-6 PRN PRN SHORTNESS OF BREATH Gabapentin (Neurontin) 300 MG CAPSULE 1 CAP PO TID NERVE PAIN (Reported) Mometasone/Formoterol (Dulera 200 Mcg/5 Mcg Inhaler) 200 MCG-5 MCG/ACTUATION HFA.AER.AD 2 PUF INH BID ASTHMA (Reported) Pravastatin Sodium (Pravachol) 40 MG TABLET 1 TAB PO DAILY CHOLESTEROL ( Reported) Ranitidine HCl 300 MG TABLET 1 TAB PO QPM GI (Reported) Warfarin Sodium (Jantoven) 7.5 MG TABLET 1 TAB PO DAILY BLOOD THINNER ( Reported) Past History Travel History Traveled to [place] past 21 day No Medical History Blood Transfusion Hx: Yes Neurological: peripheral neuropathy EENT: NONE Cardiovascular: hyperlipidemia Respiratory: asthma Gastrointestinal: NONE Hepatic: NONE Renal: NONE Musculoskeletal: NONE Psychiatric: alcohol dependence Endocrine: NONE Blood Disorders: DVT Cancer(s): NONE 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 , Age 62. FATHER (HEART CONDITION). , Age 60+. Psychosocial History Where Do You Live? Home Services at Home: None Smoking Status: Current Everyday Smoker ETOH Use: heavy use Exam & Diagnostic Data Vital Signs and I&O Vital Signs Date Time Temp Pulse Resp B/P B/P Pulse O2 O2 Flow FiO2 Mean Ox Delivery Rate 02/04 0949 95 Nasal 1.0L Cannula 02/04 0800 99.1 92 21 118/70 02/04 0800 95 Nasal 1.0L Cannula 02/04 0800 99.1 92 21 118/70 95 Nasal 1.0L Cannula 02/04 0515 94 Nasal 1.0L Cannula 02/04 0318 94 Nasal 1.0L Cannula 02/04 0000 98.7 85 20 103/57 02/04 0000 94 Nasal 1.0L Cannula 02/04 0000 98.6 85 20 108/60 94 02/03 2200 92 20 96/55 02/03 2020 95 Nasal 1.0L Cannula 02/03 2000 98.9 86 20 96/58 02/03 2000 95 Nasal 1.0L Cannula 02/03 1800 82 17 94/58 02/03 1600 98.2 92 20 94/54 02/03 1600 94 Nasal 1.0L Cannula 02/03 1600 98.0 92 18 94/50 94 Nasal 1.0L Cannula 02/03 1400 88 18 95/54 Intake & Output 02/04 1600 02/04 0800 02/04 0000 02/03 1600 02/03 0800 02/03 0000 Intake Total 735 1640 2640 1488 1515 Output Total 380 1000 2350 250 Balance 355 838 175 8585 1265 Intake, Blood 1350 600 350 Product Intake, IV 735 1160 2959 765 2695 Intake, Oral 480 0 0 Output, Urine 380 1000 2350 250 Patient 193 lb Weight Weight Reported by Patient Measurement Method Physical Exam: General: WD/ WN male in NAD; alert and oriented x 3 HEENT: NC/ AT, PERRL, EOMI Neck: no JVD, no carotid bruit Heart: RRR w/o mumrur Lungs: clear bilaterally ABdomen: soft, NT, +ve bowel sounds Extremities: 1+ bilateral leg edema Diagnostic Data EKG Results sinus rhythm Assessment/Plan Assessment/Plan * This patient has a mildly elevated troponin in the setting of profound acute anemia. This would certainly account for his shortness of breath. He does not have any chest pain or acute ischemia electrocardiographic changes. Nevertheless , even severe anemia is typically not associated with increased troponin so this patient likely has some degree of coronary artery disease. It would be reasonable to risk stratify him with a treadmill nuclear stress test as an outpatient when his anemia has resolved. There is no need for aspirin, although anticoagulation may be necessary due to his two prior DVT's. I would continue a statin. Consult Acknowledgment - Thank you for your consult request.
--- NOTE | 2017-02-04 13:34 | Proc Note Endoscopy ---
Endoscopy Procedure Medical History: unchanged (see [facility] consult) Mental Status: alert/oriented Heart/Lung Eval Prior to Sedation: within normal limits Candidate for Sedation? Yes Procedure Date: 02/04/17 Procedure Type: EGD Woven Paper Hat Mender: Rafa Bess MD ASA Classification: III Indications: Hematemesis, melena, anemia. Instrument: diagnostic gastroscope Meds Received: MAC Patient's Tolerance: good Complications: none Extent Reached: second part of duodenum Procedure: After getting written informed consent the patient was placed in the left lateral decubitus position with pulse oximetry, cardiac monitoring, and supplemental oxygen given. A bite block was inserted and IV sedation was given until the desired effect was achieved. A high definition upper Olympus endoscope was then inserted into the mouth and advanced to the second portion of the duodenum with little difficulty. Retroflexed views and photodocumentation was obtained. Findings: Esophagus: The esophageal mucosa was grossly normal in appearance and there was a normal-appearing Z line at 40 cm from the incisors. There were no esophageal strictures, ulcers, erosions, masses, or varices appreciated. Stomach: The gastric mucosa was grossly normal in appearance. There were no ulcers, erosions, or masses appreciated. Distention and peristalsis of the stomach appeared normal. Retroflexed views were normal and did not reveal a significant hiatal hernia. Duodenum: The duodenal bulb, sweep, and folds were grossly normal in appearance. There was bile appreciated throughout to the second portion of the duodenum. Impression: 1. Grossly normal upper endoscopy. 2. No active bleeding appreciated. Recommendations: 1. Advance to a full liquid diet for now with nothing red. 2. Follow CBCs and transfuse as needed to keep his hemoglobin greater than 7 or as per cardiology recommendations. 3. There are no absolute GI contraindications to resuming his anticoagulation, but would hold of on restarting it now in anticipation of likely doing a colonoscopy tomorrow. 4. Would keep on a full liquid diet today and then after a liquid supper would give 2 dulcolax tablets followed by a 1/2 gallon of colyte tonight and another 1 /2 gallon of colyte in the am in anticipation for a diagnostic colonsocopy to be performed tomorrow. 5. Follow daily INR and a decision about administering further FFP and vitamin K will be based on the morning INR. CC: TOYIN SHAHID APRN
[2017-02-04 18:55] LABS: ABSOLUTE BASOPHIL COUNT 0 /CUMM (0.0-0.2); ABSOLUTE EOSINOPHIL COUNT 0.1 /CUMM (0.0-0.7); ABSOLUTE GRANULOCYTE CT 5.9 /CUMM (1.4-6.5); ABSOLUTE LYMPH COUNT 1.4 /CUMM (1.2-3.4); ABSOLUTE MONOCYTE COUNT 0.6 /CUMM (0.10-0.60); BASOPHIL % 0.2 % (0.0-2.0); EOSINOPHIL % 0.7 % (0-5); GRANULOCYTE % 74.7 % (42.2-75.2); HEMATOCRIT 25.7 % (42-52); MEAN CORPUSCULAR HGB 26.8 PG (27.0-31.0); MEAN CORPUSCULAR HGB CONC 32.5 G/DL (33.0-37.0); MEAN CORPUSCULAR VOLUME 82.4 FL (80.0-94.0); MEAN PLATELET VOLUME 8.7 FL (7.4-10.4); PLATELET COUNT 146 /CUMM (130-400); RBC DISTRIBUTION WIDTH 18.1 % (11.5-14.5); RED BLOOD CELL CT 3.11 /CUMM (4.70-6.10); WHITE BLOOD CELL COUNT 7.9 /CUMM (4.8-10.8)
[2017-02-05] VITALS (10 sets, daily range): BP systolic 90–154; BP diastolic 50–82
--- NOTE | 2017-02-05 01:54 | RADIOLOGY REPORT ---
EXAMINATION: XR PORTABLE CHEST CLINICAL INFORMATION: Shortness of breath. COPD. COMPARISON: 12/07/2012 TECHNIQUE: Portable frontal view of the chest was obtained. FINDINGS: Cardiac leads overlie the chest. The lungs are well expanded. Increased opacity of the right mid to lower lung. Hazy left basilar opacity. Prominent interstitial markings throughout with bronchial wall thickening. No pneumothorax. The cardiomediastinal silhouette is unchanged, with a calcified aorta. IMPRESSION: Diffuse bronchial wall thickening with interstitial prominence could be associated with a small airways process or pulmonary edema. Hazy opacities of the right mid to lower lung and left base may represent superimposed pneumonia or an alveolar edema process.
--- NOTE | 2017-02-05 02:10 | Event Note ---
Event Note Event Note: I was told by nurse that patient is having tachycardia and tachypnoea. I went and examined patient, he was having HR -110, BP - 103/85, tachypnoec and SPO2 - 92%. On examination he was having crackels and whezzing on bases.We checked rectal temprature - 101 and so advised for CXR, Robles cultures. We called RT and they give nebulization. CXR showed pul edema, so we stopped IV fluids and gave IV lasix 20mg state. We also started patient on Inj Unasyn for ? pneumonia.
[2017-02-05 02:57] LABS: ABSOLUTE BASOPHIL COUNT 0.3 /CUMM (0.0-0.2); ABSOLUTE EOSINOPHIL COUNT 0 /CUMM (0.0-0.7); ABSOLUTE GRANULOCYTE CT 7.4 /CUMM (1.4-6.5); ABSOLUTE LYMPH COUNT 1.3 /CUMM (1.2-3.4); ABSOLUTE MONOCYTE COUNT 0.5 /CUMM (0.10-0.60); BASOPHIL % 2.7 % (0.0-2.0); EOSINOPHIL % 0.3 % (0-5); GRANULOCYTE % 77.8 % (42.2-75.2); HEMATOCRIT 24.4 % (42-52); MEAN CORPUSCULAR HGB 26.7 PG (27.0-31.0); MEAN CORPUSCULAR HGB CONC 32.1 G/DL (33.0-37.0); MEAN CORPUSCULAR VOLUME 83.1 FL (80.0-94.0); MEAN PLATELET VOLUME 8.6 FL (7.4-10.4); PLATELET COUNT 122 /CUMM (130-400); RBC DISTRIBUTION WIDTH 17.8 % (11.5-14.5); RED BLOOD CELL CT 2.94 /CUMM (4.70-6.10); WHITE BLOOD CELL COUNT 9.4 /CUMM (4.8-10.8)
[2017-02-05 03:17] LABS: PT 19.1 SEC (9.4-12.5)
--- NOTE | 2017-02-05 05:06 | NUR ---
PT ALERT AND ORIENTED X 3. DRINKING GOLYTLY FOR BOWEL PREP. EXERTIONAL SOB, DESATED ON 2L, BUMPED TO 5 L. TEMP-101.7. MD BROOKE AWARE AND UP TO SEE PT. PO TYLENOL GIVEN. TEMP RECHECK-99.9 RECTALLY. CHEST XAY, BLOOD CULTURES, URINE CULTURES, AND LABS ORDERED. LASIX ORDERED AND ADMINISTERED, IV FLUIDS STOPPED, UNAYSN ORDERED AND ADMINISTERED, 1 GRAM MAG ORDERED, POTASSIUM PHOSPHATE ORDERED WELL. B/P-90S/50S. WILL CONTINUE TO MONITOR.
--- NOTE | 2017-02-05 05:34 | NUR ---
PT UNABLE TO TOLERATE GOLYTLY FOR BOWEL PREP AT THIE TIME DUE TO INCREASED WORK OF BREATHING AND OXYGEN DESATURATION. TOLERALTED ABOUT HALF THE GALLON. MD BROOKE AWARE.
--- NOTE | 2017-02-05 07:03 | PN- Resident CRCU ---
Subjective HPI/CRCU Issues: Patient seen and examined at bedside this AM. He was laying comfortably in bed without distress or complaints. Patient noted that he did not get much sleep last night as he spiked a fever to 101.7 at which time he had blood cultures drawn and a CXR done. Patient has attempted to drink Golytely and has had several bowel movements in preparation for his colonoscopy this afternoon, however he was unable to finish drinking this. Because of this, his colonscopy will be done as an outpatient and patient will instead have IVC filter placed as we cannot resume his anticoagulation at this time. Patient amenable to these changes. 24 Hour Events: Patient is scheduled for IVC filter placement later this afternoon with IR. Also , due to Tmax 101.7 patient had blood cultures x 2 and was empirically started on IV unasyn. CXR at that time did demonstrate bronchial wall thickening ( suggestive of small airway process vs pulmonary edema) and hazy opacity of right mid to lower lung. Vital signs over the last 24 hours: T 98.3-101.7, HR 88-108, RR 20-36, BP 90-128/56-78, O2 90-95% on 1-2L NC. Objective Vital Signs & I&O Last 8 Hrs of Vitals and I&O: Intake & Output 02/05 1600 Intake Total Output Total Balance Patient 193 lb Weight Exam General Appearance: well developed/nourished, no apparent distress, alert, awake , comfortable Head: atraumatic, normal appearance Ears, Nose, Throat: normal pharynx, hearing grossly normal, moist mucus membranes Neck: normal inspection, No JVD Respiratory: Quiet respirations, noted bilateral wheezing with occasional crackles at the bases Cardiovascular: regular rate/rhythm Gastrointestinal: normal bowel sounds, soft, non-tender Extremities: normal inspection, Minimal edema of bilateral lower extremities Cranial Nerves: normal hearing, normal speech Skin: intact, warm/dry, Scattered bruising throughout all extremities Skin Temp/Moisture Exam: Warm/Dry Nutrition Nutrition: P.O. diet (Clear liquid) Current Medications: Current Medications Sig/Lillie Start time Last Medication Dose Route Stop Time Status Admin Acetaminophen 650 MG Q6P PRN 02/03 2000 AC 02/05 PO 0104 Acetaminophen 1,000 MG Q6P PRN 02/03 2000 AC IV Albuterol Sulfate 3 ML BID 02/05 1000 AC 02/05 INH 0836 Albuterol Sulfate 3 ML Q4P PRN 05 0815 DC 02/04 INH 1901 Albuterol Sulfate 2 PUF Q4-6 PRN PRN 02/03 0645 AC 02/04 INH 2320 Ampicillin Sodium/ 1,500 MG Q6H 02/05 0300 AC 05 Sulbactam Sodium IV 0412 Sodium Chloride 100 ML Bisacodyl 10 MG ONCE ONE 02/04 2000 DC 05/ PO 02/04 2001 2049 Budesonide/ 2 PUF BID 02/03 1000 AC 05 Formoterol Fumarate INH 0949 Chlorhexidine 1 GM .STK-MED ONE 02/04 1420 DC Gluconate TOP 02/04 1421 Cyanocobalamin/ 1 BAG ONCE ONE 02/04 0915 DC 02/04 Thiamine/Pyridoxine IV 02/04 1714 1150 Dextrose/Water 1,000 ML Furosemide 20 MG ONCE ONE 02/05 0730 DC 02/05 IV 02/05 0731 0744 Furosemide 20 MG ONCE ONE 02/05 0230 DC 02/05 IV 02/05 0231 0227 Gabapentin 300 MG Q8 02/03 0620 AC 02/05 PO 0626 Lorazepam 2 MG .STK-MED ONE 02/04 1552 DC IM 02/04 1553 Magnesium Sulfate 1 GM ONCE ONE 02/05 0145 DC 02/05 Dextrose/Water 100 ML IV 02/05 0544 0228 Magnesium Sulfate 1 GM ONCE ONE 02/04 0700 DC 02/04 Dextrose/Water 100 ML IV 02/04 1059 0816 Pantoprazole Sodium 40 MG Q5H / 1800 AC 02/05 Sodium Chloride 100 ML IV 0626 Phosphate 250 MG ONCE ONE 02/05 0630 DC 02/05 PO 02/05 0631 0716 Polyethylene Glycol 0.5 GAL ONCE ONE 02/05 0500 DC PO 02/05 0501 Polyethylene Glycol 0.5 GAL ONCE ONE 02/04 2000 DC 05 PO 02/04 2001 2050 Potassium Chloride 10 MEQ Q1H 02/05 0730 DC 05 IV 02/05 0831 0949 Potassium Phosphate 15 mMol ONE ONE 02/05 0600 CAN Dextrose/Water 250 ML IV 05 1003 Pravastatin Sodium 40 MG 1700 05/ 1700 AC 05 PO 1826 Sodium Chloride 1,000 ML Q8H 02/02 2000 DC 05 IV 2131 CXR Findings: IMPRESSION: Diffuse bronchial wall thickening with interstitial prominence could be associated with a small airways process or pulmonary edema. Hazy opacities of the right mid to lower lung and left base may represent superimposed pneumonia or an alveolar edema process. ECHO Findings: CONCLUSIONS 1. Normal EF of 60%. 2. Trace mitral regurgitation. 3. Mild to moderate tricuspid regurgitation. 4. Moderate pulmonary hypertension. US Findings: Venous doppler: IMPRESSION: 1. Partial recanalization of the previously seen extensive left lower extremity near occlusive DVT is seen with now some flow visualized within the proximal common femoral vein and in the popliteal vein. 2. No evidence of deep venous thrombosis in the right lower extremity. Impression/Plan Impression/Problem List Impression: Mr. Flores is a pleasant 61 year old male with PMH asthma, dyslipidemia, alcohol abuse, previous alcohol withdrawl seizure, and DVT x 2 (2014, August 2016) currently on coumadin who presented with chief complaint of several episodes of coffe-ground emesis and dark, tarry stools without overt blood/ clots. Associated symptoms at time of presentation included easy bleeding/ brusing of his extremities and dyspnea on exertion. Of note, patient was started on anticoagulation with his second episode of DVT in August of 2016. He was inadvertently placed on both xarelto by his PCP and Coumadin by Dr. De Santiago, vascular surgery, until 1-2 weeks later this was noted and his PCP discontinued xarelto. In the ED: Vital signs showed a Tmax of 994. HR 117, RR 22, BP 99/54 and O2 saturation of 99% on room air. Labs were significant for H&H 5.3/16.7, Plt 259, Na 131, K 4.1, HCO3 16, Cre 0.6 , Ca 8, Albumin 2.5, INR >10. EKG showed sinus tachycardia and no significant ST/T wave changes. Patient is currently admitted to the ICU and the following is the management: 1. Acute blood loss anemia secondary to GI bleed in the setting of supratherapeutic INR * GI consult placed and appreciated * Continue to hold coumadin * Patient is s/p EGD which was grossly normal, no active bleeding * Patient will likely require outpatient colonoscopy once an appropriate prep is chosen for him * No further bleeding noted * CBC now stable after 4 units prbcs total, will continue to trend CBC Q12h and transfuse as needed to maintain appropriate H&H * INR now subtherapeutic at 1.83 after 4 units FFP and holding coumadin, will have IVC filter placed later today with IR as patient will be off anticoagulation for some time before he has colonoscopy * Continue IV protonix drip * Strict Is/Os 2. Elevated troponins * Troponins peaked at 0.21, have since trended down * Patient denies any chest pain or cardiac symptoms * Cardio consult placed and appreciated, follow recomendations * Echocardiogram shows normal EF at 60%, trace MR, mild-mod TR, moderate pulm HTN * Patient will likely require treadmill nuclear stress test as an outpatient * Continue statin 3. Alcohol abuse * CIWA scoring, patient scoring 0 * Ativan PRN per CIWA protocol 4. History of DVT * Bilateral lower extremity venous dopplers shows extensive lef lower extremity near occlusive DVT, no RLE DVT * Hold coumadin due to acute blood loss anemia * Vascular sugery evaluated patient and suggested retrievable IVC filter; this to be placed with IR today as we will need to hold coumadin for some time until he has colonoscopy 5. Acute respiratory distress in setting of likely underlying COPD * Consideration for fluid overload in the setting of frequent transfusions, however patient had a fever last night which makes concern for aspiration pneumonia * Continue albuterol inhaler PRN for shortness of breath, add spiriva daily * Empiric unasyn started last night, continue pending blood culture results * Patient was noted to have shortness of breath and bilateral crackles today, given 20 mg IV lasix x 1 again * Consideration for COPD as patient has been been smoking for 20 years, 1/2 PPD * Tobacco cessation counseling provided * Of note, echo also shows moderate pulmonary HTN 6. Chronic pain * Continue neurontin 300 mg PO Q8 * PO tylenol for mild pain, IV tylenol for moderate pain FULL CODE DVTP: ALPS Clear liquid diet Mild-moderate pain pathway Problem List: 1. GI bleed 2. DVT (deep venous thrombosis) 3. Pedal edema 4. ETOH ABUSE Pain Ratin Tomorrow's Labs & Rationales: CBC (acute blood loss anemia) ICU bundle (hyponatremia) Plan DVT/Prophylaxis: mechanical (no pharm 2/2 acute blood loss)
--- NOTE | 2017-02-05 08:50 | PN- CRCU ---
Subjective HPI/Critical Care Issues: Overnight events noted. The patient was found to be tachypnea can tachycardic with a fever of 101.5. His oxygen saturations on 2 L were 89-92%. The patient had crackles on exam. A chest x-ray showed possible pulmonary edema with a right lung infiltrate. The patient was given one dose of Lasix, IV fluids were held, he was pancultured and IV Unasyn was started. This morning, the patient reports that he feels improved overall. He still has some wheezing but is much less short of breath. He is not able to produce a sputum sample. He has had no further bleeding. He remains NPO in anticipation of colonoscopy. The patient is not going for IVC filter as he will be started on Xarelto post-colonoscopy per GI. Objective Current Medications: Current Medications Sig/Lillie Start time Last Medication Dose Route Stop Time Status Admin Acetaminophen 650 MG Q6P PRN 02/03 2000 AC 02/05 PO 0104 Acetaminophen 1,000 MG Q6P PRN 02/03 2000 AC IV Albuterol Sulfate 3 ML BID 02/05 1000 AC 02/04 INH 2356 Albuterol Sulfate 3 ML Q4P PRN 02/03 0815 DC 02/04 INH 1901 Albuterol Sulfate 2 PUF Q4-6 PRN PRN 02/03 0645 AC 02/04 INH 2320 Ampicillin Sodium/ 1,500 MG Q6H 02/05 0300 AC 02/05 Sulbactam Sodium IV 0412 Sodium Chloride 100 ML Bisacodyl 10 MG ONCE ONE 02/04 2000 DC 02/04 PO 02/04 2001 2049 Budesonide/ 2 PUF BID 02/03 1000 AC 02/04 Formoterol Fumarate INH 2050 Chlorhexidine 1 GM .STK-MED ONE 02/04 1420 DC Gluconate TOP 02/04 1421 Cyanocobalamin/ 1 BAG ONCE ONE 02/04 0915 DC 02/04 Thiamine/Pyridoxine IV 02/04 1714 1150 Dextrose/Water 1,000 ML Furosemide 20 MG ONCE ONE 02/05 0730 DC 05 IV 02/05 0731 0744 Furosemide 20 MG ONCE ONE 02/05 0230 DC 05/ IV 02/05 0231 0227 Gabapentin 300 MG Q8 02/03 0620 AC 02/05 PO 0626 Lorazepam 2 MG .STK-MED ONE 02/04 1552 DC IM 02/04 1553 Magnesium Sulfate 1 GM ONCE ONE 02/05 0145 DC 02/05 Dextrose/Water 100 ML IV 02/05 0544 0228 Magnesium Sulfate 1 GM ONCE ONE 02/04 0700 DC 02/04 Dextrose/Water 100 ML IV 02/04 1059 0816 Pantoprazole Sodium 40 MG Q5H / 1800 AC 02/05 Sodium Chloride 100 ML IV 0626 Phosphate 250 MG ONCE ONE 02/05 0630 DC 02/05 PO 02/05 0631 0716 Polyethylene Glycol 0.5 GAL ONCE ONE 02/05 0500 DC PO 02/05 0501 Polyethylene Glycol 0.5 GAL ONCE ONE 02/05 2000 DC / PO 02/04 Potassium Chloride 10 MEQ Q1H 02/05 0730 DC 02/05 IV 02/05 0831 0747 Potassium Phosphate 15 mMol ONE ONE 02/05 0600 CAN Dextrose/Water 250 ML IV 02/05 1003 Pravastatin Sodium 40 MG 1700 02/04 1700 AC 02/04 PO 1826 Sodium Chloride 1,000 ML Q8H 02/02 2000 DC 02/04 IV 2131 Vital Signs & I&O Last 24 Hrs of Vitals and I&O: Vital Signs Date Time Temp Pulse Resp B/P B/P Pulse O2 O2 Flow FiO2 Mean Ox Delivery Rate 02/05 0600 90 110/82 02/05 0400 99.9 98 94/50 02/05 0400 94 Nasal 5.0L Cannula 02/05 0242 99.9 02/05 0200 101.7 103 25 90/60 02/05 0104 101.5 02/05 0006 95 Nasal 2.0L Cannula 02/05 0000 Nasal 2.0L Cannula 02/05 0000 98.6 100 29 130/70 02/05 0000 98.6 100 29 130/70 99 Nasal 2.0L Cannula 02/04 2200 98.0 100 25 127/55 02/05 2000 Nasal 2.0L Cannula 02/05 2000 98.9 98 28 115/50 02/04 1913 92 Nasal 2.0L Cannula 02/04 1600 99.2 92 20 122/68 02/04 1600 99.2 92 20 122/68 95 Nasal 2.0L Cannula 02/04 1600 94 Nasal 2.0L Cannula 02/04 1400 99.0 88 32 121/59 02/04 1200 99.4 97 25 120/68 02/04 1200 94 Nasal 2.0L Cannula 02/04 1000 99.1 95 29 109/63 02/04 0949 95 Nasal 1.0L Cannula Intake & Output 02/05 1600 02/05 0800 02/05 0000 Intake Total 470 820 Output Total 500 400 Balance -30 420 Intake, IV 470 580 Intake, Oral 240 Number 4 Bowel Movements Output, Urine 500 400 Exam General Appearance: no apparent distress, alert, comfortable Head: atraumatic, normal appearance Neck: supple Respiratory: bilateral wheezing scattered throughout, lungs expand symmetrically Cardiovascular: regular rate/rhythm Abdomen: normal bowel sounds, soft, non-tender Extremities: no edema Skin: intact, normal color, warm/dry Results Last 24 Hrs of Lab Results: Laboratory Tests 02/05/17 0500: Sodium Cancelled, Potassium Cancelled, Chloride Cancelled, Carbon Dioxide Cancelled, Anion Gap Cancelled, BUN Cancelled, Creatinine Cancelled, Glucose Cancelled, Calcium Cancelled, Phosphorus Cancelled, Magnesium Cancelled, Total Bilirubin Cancelled, AST Cancelled, ALT Cancelled, Albumin Cancelled, PT Cancelled, INR Cancelled, CBC w Diff Cancelled, WBC Cancelled, RBC Cancelled, Hgb Cancelled, Hct Cancelled, MCV Cancelled, MCH Cancelled, RDW Cancelled, Plt Count Cancelled, MPV Cancelled, PUBS MCHC Cancelled 02/05/17 0235: PT 19.1 H, INR 1.83 H, CBC w Diff NO MAN DIFF REQ, RBC 2.94 L, MCV 83.1, MCH 26.7 L, RDW 17.8 H, MPV 8.6, Gran % 77.8 H, Lymphocytes % 13.6 L, Monocytes % 5.6, Eosinophils % 0.3, Basophils % 2.7 H, Absolute Granulocytes 7.4 H, Absolute Lymphocytes 1.3, Absolute Monocytes 0.5, Absolute Eosinophils 0, Absolute Basophils 0.3, PUBS MCHC 32.1 L 02/05/17 0143: Troponin I Cancelled 02/05/17 0142: Anion Gap 8, Estimated GFR > 60, Glucose 101 H, Calcium 7.1 L, Phosphorus 1.8 L, Magnesium 1.6, Total Bilirubin 1.9 H, AST 43, ALT 28, Troponin I 0.07, Albumin 2.3 L 02/04/17 1801: CBC w Diff NO MAN DIFF REQ, RBC 3.11 L, MCV 82.4, MCH 26.8 L, RDW 18.1 H, MPV 8.7, Gran % 74.7, Lymphocytes % 17.4 L, Monocytes % 7.0, Eosinophils % 0.7, Basophils % 0.2, Absolute Granulocytes 5.9, Absolute Lymphocytes 1.4, Absolute Monocytes 0.6, Absolute Eosinophils 0.1, Absolute Basophils 0, PUBS MCHC 32.5 L Impression/Plan Impression/Plan Impression/Plan: 1. Acute blood loss anemia, likely upper GI bleed in the setting of a supratherapeutic INR and coagulopathy induced by Coumadin. 2. History of alcohol abuse. 3. COPD with mild bronchospasm. 4. Electrolyte abnormalities. 5. Positive troponin. 6. Increased respiratory distress, likely secondary to fluid overload in the setting of multiple blood products. The patient improved with IV Lasix and nebulizer treatments. TRALI is less likely but still within the differential diagnosis. Recommendations: * Monitor for CHF. * Follow up cardiology recommendations. * Continue TRC for nebulizer treatments. Continue Symbicort. * Add Spiriva 1 inhalation every morning. Please start today. * Continue empiric IV Unasyn. * Follow up culture results. * Monitor CBC every 12 hours today. Keep Hgb greater than 21. * Continue IV Protonix drip. * Colonoscopy scheduled for later today. Will start Xarelto later today if cleared by GI. * Monitor on EtOH withdrawal precautions. * Continue MVI/thiamine/folate. * DVT prophylaxis with Alps. * Continue mild to moderate pain pathway. * Continue to monitor closely in the critical care unit downgraded by GI.
--- NOTE | 2017-02-05 10:06 | PN- Cardiology ---
Subjective Subjective: * Mild chest tightness and shortness of breath. * sinus rhythm * persistent but stable anemia * Troponins have returned to normal Objective Vital Signs and I&Os Vital Signs Date Time Temp Pulse Resp B/P B/P Pulse O2 O2 Flow FiO2 Mean Ox Delivery Rate 02/05 0837 94 Nasal 2.0L Cannula 02/05 0800 Nasal 3.0L Cannula 02/05 0800 97.8 87 22 104/62 02/05 0800 97.8 87 22 104/62 95 Nasal 2.0L Cannula 02/05 0600 90 110/82 02/05 0400 99.9 98 94/50 02/05 0400 94 Nasal 5.0L Cannula 02/05 0242 99.9 02/05 0200 101.7 103 25 90/60 02/05 0104 101.5 02/05 0006 95 Nasal 2.0L Cannula 02/05 0000 Nasal 2.0L Cannula 02/05 0000 98.6 100 29 130/70 02/05 0000 98.6 100 29 130/70 99 Nasal 2.0L Cannula 02/04 2200 98.0 100 25 127/55 02/04 2000 Nasal 2.0L Cannula 02/04 2000 98.9 98 28 115/50 02/04 1913 92 Nasal 2.0L Cannula 02/04 1600 99.2 92 20 122/68 02/04 1600 99.2 92 20 122/68 95 Nasal 2.0L Cannula 02/04 1600 94 Nasal 2.0L Cannula 02/04 1400 99.0 88 32 121/59 02/04 1200 99.4 97 25 120/68 02/04 1200 94 Nasal 2.0L Cannula 02/04 1000 99.1 95 29 109/63 Intake & Output 02/05 1600 02/05 0800 02/05 0000 02/04 1600 02/04 0800 02/04 0000 Intake Total 147 106 2412 735 1640 Output Total 339 581 4773 380 1000 Balance -30 420 -445 355 640 Intake, IV 896 658 6986 735 1160 Intake, Oral 240 60 480 Number 4 0 Bowel Movements Output, Urine 403 317 6254 380 1000 Patient 193 lb Weight Physical Exam: General: WD/ WN male in NAD; alert and oriented x 3 Neck: no JVD, no carotid bruit Heart: RRR w/o mumrur Lungs: clear bilaterally ABdomen: soft, NT, +ve bowel sounds Extremities: 1+ right leg edema Assessment/Plan Assessment/Plan * This patient had a mildly elevated troponin in the setting of profound acute anemia. He likely has some degree of coronary artery disease that was not clinically significant in the absence of severe anemia. This should be quantitated via a treadmill nuclear stress test as an outpatient when his anemia is resolved. Continue a statin and restart anticoagulation for his recurrent DVT 's when cleared by GI. This will likely be after his colonoscopy which is planned for today. No ACEI or beta nell for now due to his borderline BP. * This patient has shortness of breath that may be due to a concurrent pneumonia and antibiotic therapy has been started. Anemia may be a contributor to his shortness of breath as well. Continue telemetry? Yes
--- NOTE | 2017-02-05 16:33 | ULTRASOUND REPORT ---
INFERIOR VENA CAVA FILTER PLACEMENT: CLINICAL INFORMATION: 61-year-old male with history of lower extremity DVT, previously on anticoagulation which must be discontinued due to GI bleed. A retrievable IVC filter is requested. Interventional radiologist: Tiburcio Otto M.D. COMPARISON: None. CONSENT: Informed consent was obtained from the patient prior to the procedure. During this process, the procedure and potential alternatives were explained along with the intended outcome and benefits. The risks of the procedure including the possibility of an unsuccessful procedure, as well as the risk of not doing the procedure were discussed. The patient was given the opportunity to ask questions regarding the procedure and appeared competent to make decisions. A signed consent form which documents this discussion was placed in the medical record. A time out procedure was performed. SEDATION: The procedure was performed without sedation, the patient was monitored by a certified nurse for the entire procedure. TECHNIQUE AND FINDINGS: The patient was placed supine on the fluoroscopic table. The right neck was prepped and draped in the usual sterile fashion. Ultrasound guidance for vascular access requiring ultrasound evaluation of potential access sites, documentation of selective vessel patency, concurrent real-time ultrasound visualization of vascular needle entry, with permanent recording and reporting was performed. Using standard Seldinger's technique, a 21 gauge micropuncture needle was introduced into the right internal jugular vein using ultrasound guidance. A micro-stick wire was introduced down into the superior vena cava. Confirmation of the wire within the venous system was performed. A 0.035 inch Bentson was introduced down into the inferior vena cava. Serial dilatation was performed over the wire. The standard Harrison introducer filter sheath was positioned over the wire into the IVC. An inferior venacavogram was performed which demonstrated a patent, normal caliber IVC without evidence of thrombus or duplication. The renal veins were identified. A Paradise retrievable IVC filter was then deployed under continuous fluoroscopic visualization. Post deployment contrast injection confirmed position in the IVC. The sheath was removed. Good hemostasis was achieved. Orders were written to the chart. The findings were communicated to the clinical service. The patient tolerated the procedure well and was discharged in good condition with instructions. FINDINGS: The renal veins were localized with intravenous contrast. Successful IVC retrievable Paradise placement. CONTRAST: 40 mL of Omnipaque 300 intravenous. FLUOROSCOPY DOSE: 21.5 Gycm\S\2 . FLUOROSCOPY TIME: 2.6 minutes IMPRESSION: Successful placement of an infrarenal Paradise IVC filter. This filter is retrievable. Outpatient follow up within 3 months will be scheduled with interventional radiology, pending patient's clinical course.
--- NOTE | 2017-02-05 17:23 | NUR ---
UPON RETURN FROM IR FOR IVC FILTER PLACEMENT, PT REQUIRED OXYGEN TO BE TURNED UP TO 6L NC, FROM 2L NC. INHALER GIVEN, NEB TREATMENT GIVEN. SAT 93% NO IV ACCESS AT THIS TIME. PT IS DIFFICULT STICK. ONCE LINE ESTABLISHED, IV PROTONIX GTT WILL BE RESTARTED, IV UNASYN AND IV LASIX TO BE GIVEN.
[2017-02-05 17:32] LABS: ABSOLUTE BASOPHIL COUNT 0.1 /CUMM (0.0-0.2); ABSOLUTE EOSINOPHIL COUNT 0 /CUMM (0.0-0.7); ABSOLUTE GRANULOCYTE CT 7.9 /CUMM (1.4-6.5); ABSOLUTE LYMPH COUNT 1.3 /CUMM (1.2-3.4); ABSOLUTE MONOCYTE COUNT 0.7 /CUMM (0.10-0.60); BASOPHIL % 0.8 % (0.0-2.0); EOSINOPHIL % 0.4 % (0-5); GRANULOCYTE % 78.8 % (42.2-75.2); MEAN CORPUSCULAR HGB 27.1 PG (27.0-31.0); MEAN CORPUSCULAR HGB CONC 32.7 G/DL (33.0-37.0); MEAN CORPUSCULAR VOLUME 82.9 FL (80.0-94.0); MEAN PLATELET VOLUME 8.5 FL (7.4-10.4); PLATELET COUNT 139 /CUMM (130-400); RBC DISTRIBUTION WIDTH 18.2 % (11.5-14.5); RED BLOOD CELL CT 3.26 /CUMM (4.70-6.10); WHITE BLOOD CELL COUNT 10.1 /CUMM (4.8-10.8)
--- NOTE | 2017-02-05 17:36 | PN- Gastroenterology ---
Assessment/Plan Assessment/Recommendations: GI bleed in the setting of supratherapeutic INR. No evidence of recurrent bleeding status post reversal of anticoagulation; CBC has been stable. Unrevealing EGD. Intolerant of bowel prep for colonoscopy. Status post placement of retrievable IVC filter. Recommendations * Heart healthy diet * Continue to hold anticoagulation * Outpatient colonoscopy * Follow up with vascular surgery as outpatient * Probable eventual re-anticoagulation, perhaps with Xarelto rather than warfarin Subjective Subjective: The patient did not tolerate the bowel prep, and it was not completed. As of this morning is passing brown liquid stool. He also had a fever, and evidence of respiratory insufficiency. He is now status post insertion of an IVC filter. He denies abdominal pain, melena, bright blood per rectum, nausea, vomiting. Objective Vital Signs and I&Os Vital Signs Date Time Temp Pulse Resp B/P B/P Pulse O2 O2 Flow FiO2 Mean Ox Delivery Rate 02/05 1630 92 Nasal 6.0L Cannula 02/05 1600 98.7 113 24 130/70 02/05 1600 94 Nasal 6.0L Cannula 02/05 1600 98.7 113 24 130/70 94 Nasal 6.0L Cannula 02/05 1400 94 22 154/77 / 1200 Nasal 2.0L Cannula 02/05 1200 104 22 128/78 / 1000 86 20 121/64 / 0837 94 Nasal 2.0L Cannula 02/05 0800 Nasal 3.0L Cannula / 0800 97.8 87 22 104/62 05/ 0800 97.8 87 22 104/62 95 Nasal 2.0L Cannula 02/05 0600 90 110/82 / 0400 99.9 98 94/50 / 0400 94 Nasal 5.0L Cannula 02/05 0242 99.9 / 0200 101.7 103 25 90/60 05/12 0104 101.5 /12 0006 95 Nasal 2.0L Cannula 02/05 0000 Nasal 2.0L Cannula 02/05 0000 98.6 100 29 130/70 05/ 0000 98.6 100 29 130/70 99 Nasal 2.0L Cannula 02/04 2200 98.0 100 25 127/55 02/05 2000 Nasal 2.0L Cannula 02/05 2000 98.9 98 28 115/50 02/04 1913 92 Nasal 2.0L Cannula Intake & Output 02/05 1600 02/05 0400 02/04 1600 02/04 0400 02/03 1600 02/03 0400 Intake Total 5416 725 7271 1640 4128 1515 Output Total 3607 051 2663 1000 2350 250 Balance -32 420 -90 640 1778 1265 Intake, Blood 1950 350 Product Intake, IV 016 193 5412 1160 2178 1165 Intake, Oral 720 240 60 480 0 0 Number 6 0 Bowel Movements Output, Urine 6995 516 8432 1000 2350 250 Patient 193 lb 193 lb Weight Weight Reported by Patient Measurement Method Physical Exam: Alert and oriented. Dyspneic. Sclera anicteric. Abdomen is soft and nondistended, nontender. Current Medications: Current Medications Sig/Lillie Start time Last Medication Dose Route Stop Time Status Admin Acetaminophen 650 MG Q6P PRN 02/03 2000 AC 02/05 PO 0104 Acetaminophen 1,000 MG Q6P PRN 02/03 2000 AC IV Albuterol Sulfate 3 ML BID 02/05 1000 AC 02/05 INH 0836 Albuterol Sulfate 3 ML Q4P PRN 02/03 0815 MA 02/04 INH 1901 Albuterol Sulfate 2 PUF Q4-6 PRN PRN 02/03 0645 AC 02/04 INH 2320 Ampicillin Sodium/ 1,500 MG Q6H 02/05 0300 AC 02/05 Sulbactam Sodium IV 1030 Sodium Chloride 100 ML Bisacodyl 10 MG ONCE ONE 02/05 2000 DC 02/04 PO 02/04 2001 2049 Budesonide/ 2 PUF BID 02/03 1000 AC 02/05 Formoterol Fumarate INH 0949 Furosemide 20 MG ONCE ONE 02/05 1645 DC IV 02/05 1646 Furosemide 20 MG ONCE ONE 02/05 0730 DC 05/ IV 02/05 0731 0744 Furosemide 20 MG ONCE ONE 02/05 0230 DC 02/05 IV 02/05 0231 0227 Gabapentin 300 MG Q8 02/03 0620 02/05 PO 1358 Lidocaine 0 .STK-MED ONE 02/05 1427 DC .ROUTE Magnesium Sulfate 1 GM ONCE ONE 02/05 0145 MA 02/05 Dextrose/Water 100 ML IV 02/05 0544 0228 Pantoprazole Sodium 40 MG Q5H 02/02 1800 AC 02/05 Sodium Chloride 100 ML IV 1214 Phosphate 250 MG ONCE ONE 02/05 0630 DC 02/05 PO 02/05 0631 0716 Polyethylene Glycol 0.5 GAL ONCE ONE 02/05 0500 DC PO 02/05 0501 Polyethylene Glycol 0.5 GAL ONCE ONE 02/05 2000 DC 02/04 PO 02/04 Potassium Chloride 10 MEQ Q1H 02/05 0730 DC 02/05 IV 02/05 0831 0949 Potassium Phosphate 15 mMol ONE ONE 02/05 0600 CAN Dextrose/Water 250 ML IV 02/05 1003 Pravastatin Sodium 40 MG DAILY 02/06 1000 CAN PO Pravastatin Sodium 40 MG 1700 02/04 1700 AC 02/04 PO 1826 Sodium Chloride 1,000 ML Q8H 02/03 2000 DC 02/04 IV 2131 Tiotropium Mora 1 PUF DAILY 02/05 1208 AC 02/05 INH 1358 Results Pertinent Lab Results: Laboratory Tests 02/05 02/05 02/05 170 0500 0235 Chemistry Sodium Cancelled Potassium Cancelled Chloride Cancelled Carbon Dioxide Cancelled Anion Gap Cancelled BUN Cancelled Creatinine Cancelled Glucose Cancelled Calcium Cancelled Phosphorus Cancelled Magnesium Cancelled Total Bilirubin Cancelled AST Cancelled ALT Cancelled Albumin Cancelled Coagulation PT (9.4 - 12.5 SEC) Cancelled 19.1 H INR (0.90 - 1.17) Cancelled 1.83 H Hematology CBC w Diff Pending Cancelled NO MAN DIFF REQ WBC (4.8 - 10.8 /CUMM) Pending Cancelled 9.4 RBC (4.70 - 6.10 /CUMM) Pending Cancelled 2.94 L Hgb (14.0 - 18.0 G/DL) Pending Cancelled 7.8 L Hct (42 - 52 %) Pending Cancelled 24.4 L MCV (80.0 - 94.0 FL) Pending Cancelled 83.1 MCH (27.0 - 31.0 PG) Pending Cancelled 26.7 L RDW (11.5 - 14.5 %) Pending Cancelled 17.8 H Plt Count (130 - 400 /CUMM) Pending Cancelled 122 L MPV (7.4 - 10.4 FL) Pending Cancelled 8.6 Gran % (42.2 - 75.2 %) 77.8 H Lymphocytes % (20.5 - 51.1 %) 13.6 L Monocytes % (1.7 - 9.3 %) 5.6 Eosinophils % (0 - 5 %) 0.3 Basophils % (0.0 - 2.0 %) 2.7 H Absolute Granulocytes (1.4 - 6.5 /CUMM) 7.4 H Absolute Lymphocytes (1.2 - 3.4 /CUMM) 1.3 Absolute Monocytes (0.10 - 0.60 /CUMM) 0.5 Absolute Eosinophils (0.0 - 0.7 /CUMM) 0 Absolute Basophils (0.0 - 0.2 /CUMM) 0.3 PUBS MCHC (33.0 - 37.0 G/DL) Pending Cancelled 32.1 L 02/05 02/05 02/04 0143 0142 1801 Chemistry Sodium (137 - 145 mmol/L) 132 L Potassium (3.5 - 5.1 mmol/L) 3.6 Chloride (98 - 107 mmol/L) 107 Carbon Dioxide (22 - 30 mmol/L) 18 L Anion Gap (5 - 16) 8 BUN (9 - 20 mg/dL) 5 L Creatinine (0.7 - 1.2 mg/dL) 0.5 L Estimated GFR (>60 ml/min) > 60 Glucose (65 - 99 mg/dL) 101 H Calcium (8.4 - 10.2 mg/dL) 7.1 L Phosphorus (2.5 - 4.5 mg/dL) 1.8 L Magnesium (1.6 - 2.3 mg/dL) 1.6 Total Bilirubin (0.2 - 1.3 mg/dL) 1.9 H AST (17 - 59 U/L) 43 ALT (21 - 72 U/L) 28 Troponin I (<0.11 ng/ml) Cancelled 0.07 Albumin (3.5 - 5.0 g/dL) 2.3 L Hematology CBC w Diff NO MAN DIFF REQ WBC (4.8 - 10.8 /CUMM) 7.9 RBC (4.70 - 6.10 /CUMM) 3.11 L Hgb (14.0 - 18.0 G/DL) 8.3 L Hct (42 - 52 %) 25.7 L MCV (80.0 - 94.0 FL) 82.4 MCH (27.0 - 31.0 PG) 26.8 L RDW (11.5 - 14.5 %) 18.1 H Plt Count (130 - 400 /CUMM) 146 MPV (7.4 - 10.4 FL) 8.7 Gran % (42.2 - 75.2 %) 74.7 Lymphocytes % (20.5 - 51.1 %) 17.4 L Monocytes % (1.7 - 9.3 %) 7.0 Eosinophils % (0 - 5 %) 0.7 Basophils % (0.0 - 2.0 %) 0.2 Absolute Granulocytes (1.4 - 6.5 /CUMM) 5.9 Absolute Lymphocytes (1.2 - 3.4 /CUMM) 1.4 Absolute Monocytes (0.10 - 0.60 /CUMM) 0.6 Absolute Eosinophils (0.0 - 0.7 /CUMM) 0.1 Absolute Basophils (0.0 - 0.2 /CUMM) 0 PUBS MCHC (33.0 - 37.0 G/DL) 32.5 L 02/04 02/03 0445 2200 Chemistry Sodium (137 - 145 mmol/L) 134 L 133 L Potassium (3.5 - 5.1 mmol/L) 3.7 3.4 L Chloride (98 - 107 mmol/L) 109 H 107 Carbon Dioxide (22 - 30 mmol/L) 18 L 21 L Anion Gap (5 - 16) 7 5 BUN (9 - 20 mg/dL) 5 L 6 L Creatinine (0.7 - 1.2 mg/dL) 0.5 L 0.5 L Estimated GFR (>60 ml/min) > 60 > 60 Glucose (65 - 99 mg/dL) 80 88 Calcium (8.4 - 10.2 mg/dL) 7.1 L 7.1 L Phosphorus (2.5 - 4.5 mg/dL) 2.6 1.9 L Magnesium (1.6 - 2.3 mg/dL) 1.7 1.7 Total Bilirubin (0.2 - 1.3 mg/dL) 1.8 H 1.9 H AST (17 - 59 U/L) 27 28 ALT (21 - 72 U/L) 31 34 Albumin (3.5 - 5.0 g/dL) 2.3 L 2.3 L Coagulation PT (9.4 - 12.5 SEC) 23.3 H 24.5 H INR (0.90 - 1.17) 2.24 H 2.35 H Hematology CBC w Diff NO MAN DIFF REQ NO MAN DIFF REQ WBC (4.8 - 10.8 /CUMM) 6.4 5.3 RBC (4.70 - 6.10 /CUMM) 2.87 L 2.86 L Hgb (14.0 - 18.0 G/DL) 7.6 L 7.5 L Hct (42 - 52 %) 23.5 L 23.1 L MCV (80.0 - 94.0 FL) 81.8 80.8 MCH (27.0 - 31.0 PG) 26.6 L 26.1 L RDW (11.5 - 14.5 %) 17.4 H 17.3 H Plt Count (130 - 400 /CUMM) 131 141 MPV (7.4 - 10.4 FL) 8.5 8.4 Gran % (42.2 - 75.2 %) 71.0 63.6 Lymphocytes % (20.5 - 51.1 %) 21.2 28.2 Monocytes % (1.7 - 9.3 %) 6.4 5.8 Eosinophils % (0 - 5 %) 0.9 0.9 Basophils % (0.0 - 2.0 %) 0.5 1.5 Absolute Granulocytes (1.4 - 6.5 /CUMM) 4.6 3.4 Absolute Lymphocytes (1.2 - 3.4 /CUMM) 1.4 1.5 Absolute Monocytes (0.10 - 0.60 /CUMM) 0.4 0.3 Absolute Eosinophils (0.0 - 0.7 /CUMM) 0.1 0 Absolute Basophils (0.0 - 0.2 /CUMM) 0 0.1 PUBS MCHC (33.0 - 37.0 G/DL) 32.5 L 32.4 L 05/10 05/10 1400 1204 Chemistry Troponin I (<0.11 ng/ml) 0.19 *H Coagulation PT (9.4 - 12.5 SEC) 26.7 H INR (0.90 - 1.17) 2.57 H Hematology CBC w Diff NO MAN DIFF REQ WBC (4.8 - 10.8 /CUMM) 4.9 RBC (4.70 - 6.10 /CUMM) 2.82 L Hgb (14.0 - 18.0 G/DL) 7.5 L Hct (42 - 52 %) 22.5 L MCV (80.0 - 94.0 FL) 80.1 MCH (27.0 - 31.0 PG) 26.5 L RDW (11.5 - 14.5 %) 17.2 H Plt Count (130 - 400 /CUMM) 139 MPV (7.4 - 10.4 FL) 7.9 Gran % (42.2 - 75.2 %) 65.8 Lymphocytes % (20.5 - 51.1 %) 24.8 Monocytes % (1.7 - 9.3 %) 7.2 Eosinophils % (0 - 5 %) 1.9 Basophils % (0.0 - 2.0 %) 0.3 Absolute Granulocytes (1.4 - 6.5 /CUMM) 3.2 Absolute Lymphocytes (1.2 - 3.4 /CUMM) 1.2 Absolute Monocytes (0.10 - 0.60 /CUMM) 0.4 Absolute Eosinophils (0.0 - 0.7 /CUMM) 0.1 Absolute Basophils (0.0 - 0.2 /CUMM) 0 PUBS MCHC (33.0 - 37.0 G/DL) 33.1 02/03 02/03 02/03 0625 0600 0105 Chemistry Sodium (137 - 145 mmol/L) 132 L Potassium (3.5 - 5.1 mmol/L) 3.4 L Chloride (98 - 107 mmol/L) 107 Carbon Dioxide (22 - 30 mmol/L) 21 L Anion Gap (5 - 16) 4 L BUN (9 - 20 mg/dL) 9 Creatinine (0.7 - 1.2 mg/dL) 0.5 L Estimated GFR (>60 ml/min) > 60 Glucose (65 - 99 mg/dL) 91 Calcium (8.4 - 10.2 mg/dL) 7.2 L Phosphorus (2.5 - 4.5 mg/dL) 1.8 L Magnesium (1.6 - 2.3 mg/dL) 1.8 Total Bilirubin (0.2 - 1.3 mg/dL) 1.1 AST (17 - 59 U/L) 24 ALT (21 - 72 U/L) 30 Troponin I (<0.11 ng/ml) 0.21 *H Cancelled 0.10 Albumin (3.5 - 5.0 g/dL) 2.1 L Coagulation PT (9.4 - 12.5 SEC) 44.3 *H 52.7 *H INR (0.90 - 1.17) 4.28 *H 5.10 *H Hematology CBC w Diff NO MAN DIFF REQ WBC (4.8 - 10.8 /CUMM) 4.9 RBC (4.70 - 6.10 /CUMM) 2.32 L Hgb (14.0 - 18.0 G/DL) 6.2 *L Hct (42 - 52 %) 18.8 *L MCV (80.0 - 94.0 FL) 80.7 MCH (27.0 - 31.0 PG) 26.5 L RDW (11.5 - 14.5 %) 19.1 H Plt Count (130 - 400 /CUMM) 156 MPV (7.4 - 10.4 FL) 7.7 Gran % (42.2 - 75.2 %) 58.5 Lymphocytes % (20.5 - 51.1 %) 31.9 Monocytes % (1.7 - 9.3 %) 8.2 Eosinophils % (0 - 5 %) 0.7 Basophils % (0.0 - 2.0 %) 0.7 Absolute Granulocytes (1.4 - 6.5 /CUMM) 2.9 Absolute Lymphocytes (1.2 - 3.4 /CUMM) 1.6 Absolute Monocytes (0.10 - 0.60 /CUMM) 0.4 Absolute Eosinophils (0.0 - 0.7 /CUMM) 0 Absolute Basophils (0.0 - 0.2 /CUMM) 0 PUBS MCHC (33.0 - 37.0 G/DL) 32.8 L 02/02 02/02 2308 2215 Hematology CBC w Diff NO MAN DIFF REQ WBC (4.8 - 10.8 /CUMM) 6.9 RBC (4.70 - 6.10 /CUMM) 2.02 L Hgb (14.0 - 18.0 G/DL) 5.2 *L Hct (42 - 52 %) 16.0 *L MCV (80.0 - 94.0 FL) 79.3 L MCH (27.0 - 31.0 PG) 25.7 L RDW (11.5 - 14.5 %) 20.1 H Plt Count (130 - 400 /CUMM) 181 MPV (7.4 - 10.4 FL) 8.3 Gran % (42.2 - 75.2 %) 65.2 Lymphocytes % (20.5 - 51.1 %) 25.5 Monocytes % (1.7 - 9.3 %) 8.0 Eosinophils % (0 - 5 %) 0.1 Basophils % (0.0 - 2.0 %) 1.2 Absolute Granulocytes (1.4 - 6.5 /CUMM) 4.5 Absolute Lymphocytes (1.2 - 3.4 /CUMM) 1.8 Absolute Monocytes (0.10 - 0.60 /CUMM) 0.6 Absolute Eosinophils (0.0 - 0.7 /CUMM) 0 Absolute Basophils (0.0 - 0.2 /CUMM) 0.1 PUBS MCHC (33.0 - 37.0 G/DL) 32.5 L Toxicology Urine Opiates Screen (>2000 NG/ML) < 100.00 Methadone Screen (>300 NG/ML) < 40 Barbiturate Screen (>200 NG/ML) < 60 Ur Phencyclidine Scrn (>25 NG/ML) < 6.00 Amphetamines Screen (>1000 NG/ML) 138 U Benzodiazepines Scrn (>200 NG/ML) < 85 Urine Cocaine Screen (>300 NG/ML) < 50 Urine Cannabis Screen (>50 NG/ML) < 5.00 Urines Urine Color (YEL,AMB,STR) YEL Urine Clarity (CLEAR) CLEAR Urine pH (5.0 - 8.0) 5.5 Ur Specific Rumely (1.001 - 1.035) 1.025 Urine Protein (NEG,<30 MG/DL) NEG Urine Ketones (NEG) NEG Urine Nitrite (NEG) NEG Urine Bilirubin (NEG) NEG Urine Urobilinogen (0.1 - 1.0 EU/dl) 0.2 Ur Leukocyte Esterase (NEG) NEG Ur Microscopic EXAM NOT REQUIRED Urine Hemoglobin (NEG) NEG Urine Glucose (N MG/DL) NEG 02/02 1810 Chemistry Sodium (137 - 145 mmol/L) 131 L Potassium (3.5 - 5.1 mmol/L) 4.1 Chloride (98 - 107 mmol/L) 103 Carbon Dioxide (22 - 30 mmol/L) 16 L Anion Gap (5 - 16) 13 BUN (9 - 20 mg/dL) 11 Creatinine (0.7 - 1.2 mg/dL) 0.6 L Estimated GFR (>60 ml/min) > 60 BUN/Creatinine Ratio (7 - 25 %) 18.3 Glucose (65 - 99 mg/dL) 99 Calcium (8.4 - 10.2 mg/dL) 8.0 L Magnesium (1.6 - 2.3 mg/dL) 1.9 Total Bilirubin (0.2 - 1.3 mg/dL) 0.6 AST (17 - 59 U/L) 42 ALT (21 - 72 U/L) 22 Alkaline Phosphatase (< 127 U/L) 72 Troponin I (<0.11 ng/ml) 0.01 Total Protein (6.3 - 8.2 g/dL) 5.6 L Albumin (3.5 - 5.0 g/dL) 2.5 L Globulin (1.9 - 4.2 gm/dL) 3.1 Albumin/Globulin Ratio (1.1 - 2.2 %) 0.8 L Coagulation PT (9.4 - 12.5 SEC) > 103.0 *H INR (0.90 - 1.17) > 10.0 *H Hematology CBC w Diff NO MAN DIFF REQ WBC (4.8 - 10.8 /CUMM) 10.1 RBC (4.70 - 6.10 /CUMM) 2.09 L Hgb (14.0 - 18.0 G/DL) 5.3 *L Hct (42 - 52 %) 16.7 *L MCV (80.0 - 94.0 FL) 80.0 MCH (27.0 - 31.0 PG) 25.5 L RDW (11.5 - 14.5 %) 23.3 H Plt Count (130 - 400 /CUMM) 259 MPV (7.4 - 10.4 FL) 8.1 Gran % (42.2 - 75.2 %) 75.1 Lymphocytes % (20.5 - 51.1 %) 18.2 L Monocytes % (1.7 - 9.3 %) 5.8 Eosinophils % (0 - 5 %) 0 Basophils % (0.0 - 2.0 %) 0.9 Absolute Granulocytes (1.4 - 6.5 /CUMM) 7.6 H Absolute Lymphocytes (1.2 - 3.4 /CUMM) 1.8 Absolute Monocytes (0.10 - 0.60 /CUMM) 0.6 Absolute Eosinophils (0.0 - 0.7 /CUMM) 0 Absolute Basophils (0.0 - 0.2 /CUMM) 0.1 PUBS MCHC (33.0 - 37.0 G/DL) 31.8 L Toxicology Serum Alcohol (<10 MG/DL) 35.0
--- NOTE | 2017-02-05 21:52 | RADIOLOGY REPORT ---
EXAMINATION: XR PORTABLE CHEST CLINICAL INFORMATION: Shortness of breath. COMPARISON: Chest x-ray was recent prior dated 02/05/2017 at 1:35 AM TECHNIQUE: Portable frontal view of the chest was obtained. FINDINGS: Persistent hazy prominence of the interstitial markings. Persistent bronchial wall thickening. Increasing airspace opacity right midlung which may be attributed to fluid in the fissure. Hazy patchy opacity also noted in the right lower lung. Trace right pleural effusion. IMPRESSION: Increasing bandlike opacity right midlung may represent fluid in the fissure. Adjacent airspace opacity. Pneumonia cannot be excluded. Trace right pleural effusion. Stable bronchial thickening and prominence of the interstitial markings.
--- NOTE | 2017-02-05 22:06 | NUR ---
A/OX3.FOLLOW COMMANDS. ROBISON WITH +CMS.NO C'O GEN DISCOMFORT.+PP.NO EDEMA. C'O SOB AND RECEIVED NEB TX WITH FAIR EFFECT. ABG OBTAINED AND RESULTS ABNORMAL. RECEIVED LASIX WITH GOOD EFFECT. CHEST XRAY DONE. PLACED ON HIGH FLOW NC @45 FIO2 AND SATS >92%.PROTONIX GTT CONT.IV ABX CONT VIA PIV SITE.PLAN OF CARE REVIEWED
[2017-02-06] VITALS (10 sets, daily range): BP systolic 12–130; BP diastolic 55–86
--- NOTE | 2017-02-06 | NUR ---
PATIENT ALERT AND VERBALLY APPROPRIATE.CIWA=0. MONITOR SINUS TACHYCARDIA AT RATE OF 110. UH=578/70.HIGH FLOW O2 AT 45%.DESAT TO 87%.HIGH FLOW O2 INCREASED TO 60% WITH INCREASE IN SAT TO 93% LASIX AND SOLUMEDROL GIVEN.PROTONIX DRIP CONTINUES.
[2017-02-06 05:49] LABS: ABSOLUTE BASOPHIL COUNT 0 /CUMM (0.0-0.2); ABSOLUTE EOSINOPHIL COUNT 0 /CUMM (0.0-0.7); ABSOLUTE GRANULOCYTE CT 10.3 /CUMM (1.4-6.5); ABSOLUTE LYMPH COUNT 0.4 /CUMM (1.2-3.4); ABSOLUTE MONOCYTE COUNT 0.3 /CUMM (0.10-0.60); BASOPHIL % 0.2 % (0.0-2.0); EOSINOPHIL % 0 % (0-5); HEMATOCRIT 25.4 % (42-52); MEAN CORPUSCULAR HGB 26.9 PG (27.0-31.0); MEAN CORPUSCULAR HGB CONC 32.4 G/DL (33.0-37.0); MEAN CORPUSCULAR VOLUME 83.1 FL (80.0-94.0); MEAN PLATELET VOLUME 8.5 FL (7.4-10.4); PLATELET COUNT 128 /CUMM (130-400); RBC DISTRIBUTION WIDTH 18.5 % (11.5-14.5); RED BLOOD CELL CT 3.06 /CUMM (4.70-6.10)
[2017-02-06 06:03] LABS: PTT 35 SEC (25-37)
[2017-02-06 06:40] LABS: GRANULOCYTE % 93.5 % (42.2-75.2)
--- NOTE | 2017-02-06 07:11 | PN- Resident CRCU ---
Subjective HPI/CRCU Issues: Mr Beckman was seen and examined morning resting comfortably in bed eating breakfast. Patient reports no issues overnight. He is currently comfortable. Denies any further emetic episodes. Patient does report that he's had 2 stools, these have been brown in color. He denies any hematochezia or the presence of clots in his stools. He denies any fever, chills, nausea, vomiting. Patient does endorse that he like to be discharged home as soon as possible. 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 Objective Vital Signs & I&O Last 8 Hrs of Vitals and I&O: T: 99.1 HR: 86-113. SR/ST 91/62-154/77 2l-->6L--> high Flow 91%-93% UO: SI: 1150 SII: 900 SIII: 950 Exam General Appearance: well developed/nourished, no apparent distress, alert, awake Neck: normal inspection Respiratory: normal breath sounds, crackles Cardiovascular: regular rate/rhythm Gastrointestinal: normal bowel sounds, soft, non-tender, no organomegaly Extremities: Edema 1+ Cranial Nerves: normal hearing, normal speech Current Medications: Current Medications Sig/Lillie Start time Last Medication Dose Route Stop Time Status Admin Acetaminophen 650 MG Q6P PRN 02/02 2000 AC 02/05 PO 0104 Acetaminophen 1,000 MG Q6P PRN 02/02 2000 AC IV Albuterol Sulfate 3 ML BID 02/05 1000 AC 02/06 INH 0923 Albuterol Sulfate 2 PUF Q4-6 PRN PRN 02/03 0645 AC 02/04 INH 2320 Ampicillin Sodium/ 1,500 MG Q6H 02/06 0100 02/06 Sulbactam Sodium IV 0643 Sodium Chloride 100 ML Ampicillin Sodium/ 1,500 MG Q6H 02/05 0300 NV 02/05 Sulbactam Sodium IV 1900 Sodium Chloride 100 ML Benzonatate 100 MG TID 02/05 1745 AC 02/06 PO 1001 Budesonide/ 2 PUF BID 02/03 1000 02/06 Formoterol Fumarate INH 1001 Furosemide 20 MG .STK-MED ONE 02/06 0001 DC IV 02/06 0002 Furosemide 20 MG ONCE ONE 02/05 2345 DC 02/06 IV 02/05 2346 0007 Furosemide 40 MG ONCE ONE 02/05 2245 CAN IV 02/05 2246 Furosemide 20 MG ONCE ONE 02/05 2130 DC / IV 02/05 2131 2136 Furosemide 20 MG ONCE ONE 02/05 1645 DC 05/ IV 02/05 1646 1859 Gabapentin 300 MG Q8 02/03 0620 AC 02/06 PO 0639 Lidocaine 0 .STK-MED ONE 02/05 1427 DC .ROUTE Magnesium Oxide 400 MG BID 02/06 1000 AC 02/06 PO 1001 Methylprednisolone 40 MG .STK-MED ONE 02/06 0000 DC IM 02/06 0001 Methylprednisolone 40 MG Q6 02/05 2359 AC 02/06 IV 0640 Ondansetron HCl 4 MG .STK-MED ONE 02/06 0004 DC IM 02/06 0005 Ondansetron HCl 4 MG ONCE ONE 02/05 2345 DC 02/06 IV 02/05 2346 0010 Pantoprazole Sodium 40 MG Q5H 02/02 1800 AC 02/06 Sodium Chloride 100 ML IV 0642 Potassium Chloride 20 MEQ DAILY 02/06 1000 AC 02/06 PO 02/07 1001 1001 Pravastatin Sodium 40 MG DAILY 02/06 1000 CAN PO Pravastatin Sodium 40 MG 1700 / 1700 AC 02/05 PO 1815 Tiotropium Trenary 1 PUF DAILY 02/05 1208 AC 02/06 INH 1001 Miscellaneous Findings: PATIENT: MCKAY BECKMAN PRESENT AGE: 61 PATIENT ACCOUNT NO: [id number] : 59 LOCATION: [facility] ORDERING PHYSICIAN: STEPHEN FALL MD SERVICE DATE: 02/06/17 EXAM TYPE: CAT - CTA CHEST-PULMONARY EMBOLISM EXAMINATION: CT ANGIOGRAM OF THE CHEST WITH CONTRAST (CT PULMONARY ANGIOGRAM FOR PE) CLINICAL INFORMATION: Desaturation. History of deep vein thrombosis and IVC filter. Evaluate for pulmonary embolism. COMPARISON: Recent chest radiographs from 02/05/2017 and 02/06/2017. TECHNIQUE: Prior to contrast administration, noncontrast localization images were obtained. Subsequently, multidetector volumetric imaging was performed from the thoracic inlet to below the diaphragms following the administration of 95 mL of Optiray 350 intravenous contrast. No contrast reaction reported. Sagittal, coronal, and MIP oblique sagittal reformatted images were obtained on the CT workstation, uploaded to PACS, and reviewed. Total exam dose-length product 533 mGy-cm FINDINGS: QUALITY OF STUDY/CONTRAST BOLUS: Satisfactory. PULMONARY ARTERIES: No filling defects are identified in the main, lobar or segmental vessels. THORACIC AORTA: Atherosclerotic calcification of the thoracic aorta without acute intramural hematoma, aneurysm or dissection. There is a bovine configuration of the aortic arch. Calcified atherosclerotic plaque produces [id number] stenosis of the proximal right subclavian artery, moderate stenosis of the mid to distal right subclavian artery, and moderate stenosis of the distal left subclavian artery. LUNGS AND PLEURA: There is diffuse interlobular and intralobular septal thickening in both lungs with some patchy areas of relative sparing. The areas of disease sparing are most conspicuous within lower lung zones, particularly in the posterior right lower lobe. Small bilateral pleural effusions are present. There is a region of subsegmental atelectasis in the medial basal segment of the right lower lobe. Mild atelectasis is present in the dependent aspect of the left lower lobe. No pneumothorax. MEDIASTINUM: The heart size is normal. There is severe three-vessel coronary artery atherosclerotic calcification. No pericardial effusion. No evidence of septal bowing or right heart strain. The esophagus and thyroid gland are unremarkable. LYMPHATICS: No axillary or hilar lymphadenopathy. There are borderline enlarged subcarinal lymph nodes, likely reactive to the pulmonary disease. UPPER ABDOMEN: The liver has lobulated contour. Correlate for history of chronic hepatitis/cirrhosis. No focal lesions are identified in the examined portion of the liver. The visualized portions of the adrenal glands are unremarkable. No reflux of contrast into the hepatic veins to suggest elevated right heart pressures. OSSEOUS STRUCTURES: No acute findings in the degenerated spine. Several thoracic vertebra exhibit mild anterior height loss, including T11, which also has a Schmorl's node at its superior endplate. There are several old, healed, bilateral rib fractures. IMPRESSION: 1. Severe atherosclerotic disease of the coronary arteries. Also, there is atherosclerotic disease of the thoracic aorta and major branch vessels (e.g. subclavian arteries) without aneurysm. 2. Interstitial pulmonary edema, small pleural effusions and bibasilar atelectasis. 3. No evidence of pulmonary embolism. 4. Liver has lobulated contour, suggestive of cirrhosis. Recommend correlation with liver function tests. DICTATED BY: ADAMS STINSON MD DATE/TIME DICTATED:02/06/175 FRUIT SPRAYER:BIJAN DATE/TIME TRANSCRIBED:02/06/171444 CONFIDENTIAL, DO NOT COPY WITHOUT APPROPRIATE AUTHORIZATION. <Electronically signed in Other Vendor System> SIGNED BY: ADAMS STINSON MD 02/06/17 0055 Impression/Plan Impression/Problem List Impression: Mr. Beckman is a pleasant 61 year old male with PMH asthma, dyslipidemia, alcohol abuse, previous alcohol withdrawl seizure, and DVT x 2 (2014, August 2016) currently on coumadin who presented with chief complaint of several episodes of coffe-ground emesis and dark, tarry stools without overt blood/ clots. Associated symptoms at time of presentation included easy bleeding/ brusing of his extremities and dyspnea on exertion. Of note, patient was started on anticoagulation with his second episode of DVT in August of 2016. He was inadvertently placed on both xarelto by his PCP and Coumadin by Dr. De Santiago, vascular surgery, until 1-2 weeks later this was noted and his PCP discontinued xarelto. In the ED: Vital signs showed a Tmax of 994. HR 117, RR 22, BP 99/54 and O2 saturation of 99% on room air. Labs were significant for H&H 5.3/16.7, Plt 259, Na 131, K 4.1, HCO3 16, Cre 0.6 , Ca 8, Albumin 2.5, INR >10. EKG showed sinus tachycardia and no significant ST/T wave changes. Patient is currently admitted to the ICU and the following is the management: 1. Acute blood loss anemia secondary to GI bleed in the setting of supratherapeutic INR * GI consult placed and appreciated * Continue to hold coumadin * Patient is s/p EGD which was grossly normal, no active bleeding * Patient will likely require outpatient colonoscopy once an appropriate prep is chosen for him * No further bleeding noted * CBC now stable after 4 units prbcs total, will continue to trend CBC Q12h and transfuse as needed to maintain appropriate H&H: 8.2/25.4 * INR now subtherapeutic at 1.63after 4 units FFP and holding coumadin, s/p IVC filter placement as patient will be off anticoagulation for some time before he has colonoscopy * Continue IV protonix drip * Strict Is/Os 2. Elevated troponins * Troponins peaked at 0.21, have since trended down * Patient denies any chest pain or cardiac symptoms * Cardio consult placed and appreciated, follow recomendations * Echocardiogram shows normal EF at 60%, trace MR, mild-mod TR, moderate pulm HTN * Patient will likely require treadmill nuclear stress test as an outpatient * Continue statin 3. Alcohol abuse * CIWA scoring, patient scoring 0 * Ativan PRN per CIWA protocol 4. History of DVT * Bilateral lower extremity venous dopplers shows extensive lef lower extremity near occlusive DVT, no RLE DVT * Hold coumadin due to acute blood loss anemia * Vascular sugery evaluated patient and suggested retrievable IVC filter; this to be placed with IR today as we will need to hold coumadin for some time until he has colonoscopy 5. Acute respiratory distress in setting of likely underlying COPD * Consideration for fluid overload in the setting of frequent transfusions, however patient had a fever last 02/05/2017 which makes concern for aspiration pneumonia * Continue albuterol inhaler PRN for shortness of breath, add spiriva daily * Continue unasyn started last night, continue pending blood culture results * Patient was noted to have shortness of breath and bilateral crackles. Given 20 mg IV lasix x 1 again * Consideration for COPD as patient has been been smoking for 20 years, 1/2 PPD * Tobacco cessation counseling provided * Of note, echo also shows moderate pulmonary HTN * Owing to increased oxygen requirements, patient also underwent CTA this afternoon. 6. Chronic pain * Continue neurontin 300 mg PO Q8 * PO tylenol for mild pain, IV tylenol for moderate pain FULL CODE DVTP: [facility] Mild-moderate pain pathway Problem List: 1. GI bleed 2. DVT (deep venous thrombosis) 3. Pedal edema 4. ETOH ABUSE Pain Ratin Tomorrow's Labs & Rationales: CBC ICU Bundle Plan DVT/Prophylaxis: mechanical (no pharm 2/2 acute blood loss)
--- NOTE | 2017-02-06 08:00 | NUR ---
REC'D THE PT SITTING ON THE SIDE OF THE BED EATING BREAKFAST, OFFERS NO C/O. A&OX3,ROBISON. SR WITHOUT ECTOPY PER THE CLASSROOM TEACHER. TIFFANY BS ARE CLEAR WITH AN O2 SAT OF 97% ON A 60%HFNC(HIGH FLOW NASAL CANNULA). SL SOB ON EXERTION WHICH RESOLVES QUICKLY WITH REST. ABD IS SOFT WITH NORMOACTIVE BOWEL SOUNDS. PT IS ON A HH DIET, TARUN WITHOUT N/V. REMAINS ON A PRTOTONIX GTT OF 40MG/100ML NS INFUSING AT 8MG/HR OR 20ML/HR. DR MOUNIKA WHITING QUESTIONED TO CONTINUED NEED FOR PRTONIX GTT VS BID PROTONIX. TO CHECK WITH GI.
--- NOTE | 2017-02-06 09:00 | NUR ---
ATTEMPTED TO PLACE A 12FR SILICONE SHEARER AND WAS UNABLE, MET RESISTANCE WHEN THE CATHETER WAS 1/2 IN AND THE PT WAS C/O PAIN. DR DUMONT NOTIFIED AND A UROLOGY CONSULT IS TO BE ORDERED THE PT REQUIRES STRICT INTAKE AND OUTPUT.
--- NOTE | 2017-02-06 10:39 | PN- Cardiology ---
Subjective Subjective: The patient has no complaints at this time. He is not apparently GI bleeding anymore. He was given some IV Lasix overnight for high-volume fluids given and vascular congestion seen on chest x-ray. He is starting to diuresis. His oxygen saturation is 95% on 55% oxygen. His troponins have normalized. His peak troponin was 0.21. There have been no arrhythmias. Objective Vital Signs and I&Os Vital Signs Date Time Temp Pulse Resp B/P B/P Pulse O2 O2 Flow FiO2 Mean Ox Delivery Rate 02/06 0924 95 Nasal 55% Cannula 02/06 0538 93 Nasal 60% Cannula 02/06 0200 100 28 113/55 02/06 0110 85 Nasal 45% Cannula 02/06 0000 98.7 110 20 130/70 02/06 0000 98.7 110 20 130/70 93 Nasal 60% Cannula 02/06 0000 97 Nasal 60% Cannula 02/05 2151 93 Nasal 45% Cannula 02/06 2000 99.1 113 25 128/64 02/05 2000 93 Nasal 6.0L Cannula 02/05 1630 92 Nasal 6.0L Cannula 02/05 1600 98.7 113 24 130/70 02/05 1600 94 Nasal 6.0L Cannula 02/05 1600 98.7 113 24 130/70 94 Nasal 6.0L Cannula 02/05 1400 94 22 154/77 02/05 1200 Nasal 2.0L Cannula 02/05 1200 104 22 128/78 Intake & Output 02/06 1600 02/06 0800 02/06 0000 02/05 1600 02/05 0800 02/05 0000 Intake Total 562 1000 1148 470 820 Output Total 0323 947 3685 500 400 Balance -888 100 -2 -30 420 Intake, IV 362 160 428 470 580 Intake, Oral 200 840 720 240 Number 2 4 Bowel Movements Output, Stool 500 Output, Urine 341 101 5515 500 400 Patient 193 lb Weight Physical Exam: He is in no distress on high flow oxygen HEENT exam is normal Chest reveals some crackles Heart reveals regular rhythm and no murmurs Extremities trace edema Current Medications: Current Medications Sig/Lillie Start time Last Medication Dose Route Stop Time Status Admin Acetaminophen 650 MG Q6P PRN 02/03 2000 AC 02/05 PO 0104 Acetaminophen 1,000 MG Q6P PRN 02/03 2000 AC IV Albuterol Sulfate 3 ML BID 02/05 1000 AC 02/06 INH 0923 Albuterol Sulfate 2 PUF Q4-6 PRN PRN 02/03 0645 AC 02/04 INH 2320 Ampicillin Sodium/ 1,500 MG Q6H 02/06 0100 AC 02/06 Sulbactam Sodium IV 0643 Sodium Chloride 100 ML Ampicillin Sodium/ 1,500 MG Q6H 02/05 0300 DC 02/05 Sulbactam Sodium IV 1900 Sodium Chloride 100 ML Benzonatate 100 MG TID 02/05 1745 AC 02/06 PO 1001 Budesonide/ 2 PUF BID 02/03 1000 AC 02/06 Formoterol Fumarate INH 1001 Furosemide 20 MG .STK-MED ONE 02/06 0001 DC IV 02/06 0002 Furosemide 20 MG ONCE ONE 02/05 2345 DC 02/06 IV 02/05 2346 0007 Furosemide 40 MG ONCE ONE 02/05 2245 CAN IV 02/05 2246 Furosemide 20 MG ONCE ONE 02/05 2130 DC 02/05 IV 02/05 2131 2136 Furosemide 20 MG ONCE ONE 02/05 1645 DC 05 IV 02/05 1646 1859 Gabapentin 300 MG Q8 02/03 0620 AC 02/06 PO 0639 Lidocaine 0 .STK-MED ONE 02/05 1427 DC .ROUTE Magnesium Oxide 400 MG BID 02/06 1000 AC 02/06 PO 1001 Methylprednisolone 40 MG .STK-MED ONE 02/06 0000 DC IM 02/06 0001 Methylprednisolone 40 MG Q6 02/05 2359 AC 02/06 IV 0640 Ondansetron HCl 4 MG .STK-MED ONE 02/06 0004 DC IM 02/06 0005 Ondansetron HCl 4 MG ONCE ONE 02/05 2345 DC 02/06 IV 02/05 2346 0010 Pantoprazole Sodium 40 MG Q5H 02/02 1800 AC 02/06 Sodium Chloride 100 ML IV 0642 Potassium Chloride 20 MEQ DAILY 02/06 1000 AC 02/06 PO 02/07 1001 1001 Pravastatin Sodium 40 MG DAILY 02/06 1000 CAN PO Pravastatin Sodium 40 MG 1700 02/04 1700 AC 02/05 PO 1815 Tiotropium Harris 1 PUF DAILY 02/05 1208 AC 02/06 INH 1001 Results Last 48 Hrs of Labs/Mics: Laboratory Tests 02/06/17 0515: Anion Gap 7, Estimated GFR > 60, Glucose 125 H, Calcium 7.1 L, Phosphorus 2.3 L, Magnesium 1.7, Total Bilirubin 2.0 H, AST 33, ALT 35, Albumin 2.4 L, PT 17.0 H, INR 1.63 H, APTT 35, CBC w Diff NO MAN DIFF REQ, RBC 3.06 L, MCV 83.1 , MCH 26.9 L, RDW 18.5 H, MPV 8.5, Gran % 93.5 H, Lymphocytes % 3.6 L, Monocytes % 2.7, Eosinophils % 0, Basophils % 0.2, Absolute Granulocytes 10.3 H , Absolute Lymphocytes 0.4 L, Absolute Monocytes 0.3, Absolute Eosinophils 0, Absolute Basophils 0, PUBS MCHC 32.4 L 02/05/17 2120: pH 7.55 H, pCO2 23 L, pO2 52 L, HCO3 20 L, ABG O2 Sat (Measured) 88.0 L, P- 50 (Temp Corrected) N, Carboxyhemoglobin 0.9 L, O2 Concentration % 6L, Temperature 99.1, O2 Delivery Method NC, Phlebotomy Draw Site RIGHT BRACHIAL 02/05/17 1700: CBC w Diff NO MAN DIFF REQ, RBC 3.26 L, MCV 82.9, MCH 27.1, RDW 18.2 H, MPV 8.5, Gran % 78.8 H, Lymphocytes % 12.9 L, Monocytes % 7.1, Eosinophils % 0.4, Basophils % 0.8, Absolute Granulocytes 7.9 H, Absolute Lymphocytes 1.3, Absolute Monocytes 0.7 H, Absolute Eosinophils 0, Absolute Basophils 0.1, PUBS MCHC 32.7 L 02/05/17 0500: Sodium Cancelled, Potassium Cancelled, Chloride Cancelled, Carbon Dioxide Cancelled, Anion Gap Cancelled, BUN Cancelled, Creatinine Cancelled, Glucose Cancelled, Calcium Cancelled, Phosphorus Cancelled, Magnesium Cancelled, Total Bilirubin Cancelled, AST Cancelled, ALT Cancelled, Albumin Cancelled, PT Cancelled, INR Cancelled, CBC w Diff Cancelled, WBC Cancelled, RBC Cancelled, Hgb Cancelled, Hct Cancelled, MCV Cancelled, MCH Cancelled, RDW Cancelled, Plt Count Cancelled, MPV Cancelled, PUBS MCHC Cancelled 02/05/17 0235: PT 19.1 H, INR 1.83 H, CBC w Diff NO MAN DIFF REQ, RBC 2.94 L, MCV 83.1, MCH 26.7 L, RDW 17.8 H, MPV 8.6, Gran % 77.8 H, Lymphocytes % 13.6 L, Monocytes % 5.6, Eosinophils % 0.3, Basophils % 2.7 H, Absolute Granulocytes 7.4 H, Absolute Lymphocytes 1.3, Absolute Monocytes 0.5, Absolute Eosinophils 0, Absolute Basophils 0.3, PUBS MCHC 32.1 L 02/05/17 0143: Troponin I Cancelled 02/05/17 0142: Anion Gap 8, Estimated GFR > 60, Glucose 101 H, Calcium 7.1 L, Phosphorus 1.8 L, Magnesium 1.6, Total Bilirubin 1.9 H, AST 43, ALT 28, Troponin I 0.07, Albumin 2.3 L 02/04/17 1801: CBC w Diff NO MAN DIFF REQ, RBC 3.11 L, MCV 82.4, MCH 26.8 L, RDW 18.1 H, MPV 8.7, Gran % 74.7, Lymphocytes % 17.4 L, Monocytes % 7.0, Eosinophils % 0.7, Basophils % 0.2, Absolute Granulocytes 5.9, Absolute Lymphocytes 1.4, Absolute Monocytes 0.6, Absolute Eosinophils 0.1, Absolute Basophils 0, PUBS MCHC 32.5 L Recent Imaging Studies: PATIENT: MCKAY BECKMAN PRESENT AGE: 61 PATIENT ACCOUNT NO: [id number] : 59 LOCATION: [facility] ORDERING PHYSICIAN: RAKEL KING MD SERVICE DATE: 02/05/17 EXAM TYPE: RAD - XRY-PORTABLE CHEST XRAY EXAMINATION: XR PORTABLE CHEST CLINICAL INFORMATION: Shortness of breath. COMPARISON: Chest x-ray was recent prior dated 02/05/2017 at 1:35 AM TECHNIQUE: Portable frontal view of the chest was obtained. FINDINGS: Persistent hazy prominence of the interstitial markings. Persistent bronchial wall thickening. Increasing airspace opacity right midlung which may be attributed to fluid in the fissure. Hazy patchy opacity also noted in the right lower lung. Trace right pleural effusion. IMPRESSION: Increasing bandlike opacity right midlung may represent fluid in the fissure. Adjacent airspace opacity. Pneumonia cannot be excluded. Trace right pleural effusion. Stable bronchial thickening and prominence of the interstitial markings. DICTATED BY: J LUIS ROPER MD DATE/TIME DICTATED:02/05/172143 VENDING MACHINE REPAIRER:BIJAN DATE/TIME TRANSCRIBED:02/05/172143 CONFIDENTIAL, DO NOT COPY WITHOUT APPROPRIATE AUTHORIZATION. <Electronically signed in Other Vendor System> SIGNED BY: J LUIS ROPER MD 02/05/172151 Assessment/Plan Assessment/Plan The patient's GI bleeding has stopped. He is off anticoagulation now. He has an IVC filter. He has probably gotten a little fluid overloaded and has been given some Lasix. I recommend continuing the same treatment. I would repeat a chest x-ray to see if there is reduction in his pulmonary congestion. I would continue to taper his oxygen per pulmonary. I would hold off on restarting anticoagulation as per GI recommendations. Continue telemetry? Yes
--- NOTE | 2017-02-06 13:30 | PN- Gastroenterology ---
Assessment/Plan Assessment/Recommendations: Patient is doing well. Uneventful night. Comfortable and stable in bed. No obvious signs of bleeding. Slight drop in hematocrit which likely does not represent significant ongoing bleeding.. Alert orientated. Abdomen soft nontender. Bowel sounds present. Recommend an outpatient colonoscopy when stable. We will sign off today but please call if there is any further evidence of ongoing bleeding. Subjective Subjective: x Objective Vital Signs and I&Os Vital Signs Date Time Temp Pulse Resp B/P B/P Pulse O2 O2 Flow FiO2 Mean Ox Delivery Rate 02/06 1200 98.0 106 28 112/68 02/06 1200 96 Nasal 75% Cannula 02/06 1000 97.0 101 28 115/63 02/06 0924 95 Nasal 55% Cannula 02/06 0800 97.0 94 24 106/56 02/06 0800 97 Nasal 60% Cannula 02/06 0800 97.0 94 24 106/86 97 Nasal 60% Cannula 02/06 0538 93 Nasal 60% Cannula 02/06 0200 100 28 113/55 02/06 0110 85 Nasal 45% Cannula 02/06 0000 98.7 110 20 130/70 02/06 0000 98.7 110 20 130/70 93 Nasal 60% Cannula 02/06 0000 97 Nasal 60% Cannula 02/05 2151 93 Nasal 45% Cannula 02/05 2000 99.1 113 25 128/64 02/05 2000 93 Nasal 6.0L Cannula 02/05 1630 92 Nasal 6.0L Cannula 02/05 1600 98.7 113 24 130/70 02/05 1600 94 Nasal 6.0L Cannula 02/05 1600 98.7 113 24 130/70 94 Nasal 6.0L Cannula 02/05 1400 94 22 154/77 Intake & Output 02/06 1600 02/06 0400 02/05 1600 02/05 0400 02/04 1600 02/04 0400 Intake Total 562 1000 5089 152 8890 1640 Output Total 1977 761 8041 400 1980 1000 Balance -888 100 -32 420 -90 640 Intake, IV 362 160 214 527 7899 1160 Intake, Oral 200 840 720 240 60 480 Number 6 0 Bowel Movements Output, Stool 500 Output, Urine 851 050 8658 400 1980 1000 Patient 193 lb Weight Results Pertinent Lab Results: Laboratory Tests 02/06 02/05 0515 2120 Blood Gas pH (7.35 - 7.45 PH) 7.55 H pCO2 (35 - 45 TORR) 23 L pO2 (80 - 100 TORR) 52 L HCO3 (21 - 28 MEQ/L) 20 L ABG O2 Sat (Measured) (>96.0 %) 88.0 L P-50 (Temp Corrected) N Carboxyhemoglobin (1.5 - 5.0 %) 0.9 L O2 Concentration % 6L Temperature (97.0 - 100.0 FARH) 99.1 O2 Delivery Method NC Chemistry Sodium (137 - 145 mmol/L) 129 L Potassium (3.5 - 5.1 mmol/L) 3.2 L Chloride (98 - 107 mmol/L) 102 Carbon Dioxide (22 - 30 mmol/L) 21 L Anion Gap (5 - 16) 7 BUN (9 - 20 mg/dL) 3 L Creatinine (0.7 - 1.2 mg/dL) 0.5 L Estimated GFR (>60 ml/min) > 60 Glucose (65 - 99 mg/dL) 125 H Calcium (8.4 - 10.2 mg/dL) 7.1 L Phosphorus (2.5 - 4.5 mg/dL) 2.3 L Magnesium (1.6 - 2.3 mg/dL) 1.7 Total Bilirubin (0.2 - 1.3 mg/dL) 2.0 H AST (17 - 59 U/L) 33 ALT (21 - 72 U/L) 35 Albumin (3.5 - 5.0 g/dL) 2.4 L Coagulation PT (9.4 - 12.5 SEC) 17.0 H INR (0.90 - 1.17) 1.63 H APTT (25 - 37 SEC) 35 Hematology CBC w Diff NO MAN DIFF REQ WBC (4.8 - 10.8 /CUMM) 11.0 H RBC (4.70 - 6.10 /CUMM) 3.06 L Hgb (14.0 - 18.0 G/DL) 8.2 L Hct (42 - 52 %) 25.4 L MCV (80.0 - 94.0 FL) 83.1 MCH (27.0 - 31.0 PG) 26.9 L RDW (11.5 - 14.5 %) 18.5 H Plt Count (130 - 400 /CUMM) 128 L MPV (7.4 - 10.4 FL) 8.5 Gran % (42.2 - 75.2 %) 93.5 H Lymphocytes % (20.5 - 51.1 %) 3.6 L Monocytes % (1.7 - 9.3 %) 2.7 Eosinophils % (0 - 5 %) 0 Basophils % (0.0 - 2.0 %) 0.2 Absolute Granulocytes (1.4 - 6.5 /CUMM) 10.3 H Absolute Lymphocytes (1.2 - 3.4 /CUMM) 0.4 L Absolute Monocytes (0.10 - 0.60 /CUMM) 0.3 Absolute Eosinophils (0.0 - 0.7 /CUMM) 0 Absolute Basophils (0.0 - 0.2 /CUMM) 0 PUBS MCHC (33.0 - 37.0 G/DL) 32.4 L Miscellaneous Phlebotomy Draw Site RIGHT BRACHIAL 02/05 02/05 1700 0500 Chemistry Sodium Cancelled Potassium Cancelled Chloride Cancelled Carbon Dioxide Cancelled Anion Gap Cancelled BUN Cancelled Creatinine Cancelled Glucose Cancelled Calcium Cancelled Phosphorus Cancelled Magnesium Cancelled Total Bilirubin Cancelled AST Cancelled ALT Cancelled Albumin Cancelled Coagulation PT Cancelled INR Cancelled Hematology CBC w Diff NO MAN DIFF REQ Cancelled WBC (4.8 - 10.8 /CUMM) 10.1 Cancelled RBC (4.70 - 6.10 /CUMM) 3.26 L Cancelled Hgb (14.0 - 18.0 G/DL) 8.8 L Cancelled Hct (42 - 52 %) 27.0 L Cancelled MCV (80.0 - 94.0 FL) 82.9 Cancelled MCH (27.0 - 31.0 PG) 27.1 Cancelled RDW (11.5 - 14.5 %) 18.2 H Cancelled Plt Count (130 - 400 /CUMM) 139 Cancelled MPV (7.4 - 10.4 FL) 8.5 Cancelled Gran % (42.2 - 75.2 %) 78.8 H Lymphocytes % (20.5 - 51.1 %) 12.9 L Monocytes % (1.7 - 9.3 %) 7.1 Eosinophils % (0 - 5 %) 0.4 Basophils % (0.0 - 2.0 %) 0.8 Absolute Granulocytes (1.4 - 6.5 /CUMM) 7.9 H Absolute Lymphocytes (1.2 - 3.4 /CUMM) 1.3 Absolute Monocytes (0.10 - 0.60 /CUMM) 0.7 H Absolute Eosinophils (0.0 - 0.7 /CUMM) 0 Absolute Basophils (0.0 - 0.2 /CUMM) 0.1 PUBS MCHC (33.0 - 37.0 G/DL) 32.7 L Cancelled 02/05 02/05 02/05 0235 0143 0142 Chemistry Sodium (137 - 145 mmol/L) 132 L Potassium (3.5 - 5.1 mmol/L) 3.6 Chloride (98 - 107 mmol/L) 107 Carbon Dioxide (22 - 30 mmol/L) 18 L Anion Gap (5 - 16) 8 BUN (9 - 20 mg/dL) 5 L Creatinine (0.7 - 1.2 mg/dL) 0.5 L Estimated GFR (>60 ml/min) > 60 Glucose (65 - 99 mg/dL) 101 H Calcium (8.4 - 10.2 mg/dL) 7.1 L Phosphorus (2.5 - 4.5 mg/dL) 1.8 L Magnesium (1.6 - 2.3 mg/dL) 1.6 Total Bilirubin (0.2 - 1.3 mg/dL) 1.9 H AST (17 - 59 U/L) 43 ALT (21 - 72 U/L) 28 Troponin I (<0.11 ng/ml) Cancelled 0.07 Albumin (3.5 - 5.0 g/dL) 2.3 L Coagulation PT (9.4 - 12.5 SEC) 19.1 H INR (0.90 - 1.17) 1.83 H Hematology CBC w Diff NO MAN DIFF REQ WBC (4.8 - 10.8 /CUMM) 9.4 RBC (4.70 - 6.10 /CUMM) 2.94 L Hgb (14.0 - 18.0 G/DL) 7.8 L Hct (42 - 52 %) 24.4 L MCV (80.0 - 94.0 FL) 83.1 MCH (27.0 - 31.0 PG) 26.7 L RDW (11.5 - 14.5 %) 17.8 H Plt Count (130 - 400 /CUMM) 122 L MPV (7.4 - 10.4 FL) 8.6 Gran % (42.2 - 75.2 %) 77.8 H Lymphocytes % (20.5 - 51.1 %) 13.6 L Monocytes % (1.7 - 9.3 %) 5.6 Eosinophils % (0 - 5 %) 0.3 Basophils % (0.0 - 2.0 %) 2.7 H Absolute Granulocytes (1.4 - 6.5 /CUMM) 7.4 H Absolute Lymphocytes (1.2 - 3.4 /CUMM) 1.3 Absolute Monocytes (0.10 - 0.60 /CUMM) 0.5 Absolute Eosinophils (0.0 - 0.7 /CUMM) 0 Absolute Basophils (0.0 - 0.2 /CUMM) 0.3 PUBS MCHC (33.0 - 37.0 G/DL) 32.1 L 02/04 02/04 1801 0445 Chemistry Sodium (137 - 145 mmol/L) 134 L Potassium (3.5 - 5.1 mmol/L) 3.7 Chloride (98 - 107 mmol/L) 109 H Carbon Dioxide (22 - 30 mmol/L) 18 L Anion Gap (5 - 16) 7 BUN (9 - 20 mg/dL) 5 L Creatinine (0.7 - 1.2 mg/dL) 0.5 L Estimated GFR (>60 ml/min) > 60 Glucose (65 - 99 mg/dL) 80 Calcium (8.4 - 10.2 mg/dL) 7.1 L Phosphorus (2.5 - 4.5 mg/dL) 2.6 Magnesium (1.6 - 2.3 mg/dL) 1.7 Total Bilirubin (0.2 - 1.3 mg/dL) 1.8 H AST (17 - 59 U/L) 27 ALT (21 - 72 U/L) 31 Albumin (3.5 - 5.0 g/dL) 2.3 L Coagulation PT (9.4 - 12.5 SEC) 23.3 H INR (0.90 - 1.17) 2.24 H Hematology CBC w Diff NO MAN DIFF REQ NO MAN DIFF REQ WBC (4.8 - 10.8 /CUMM) 7.9 6.4 RBC (4.70 - 6.10 /CUMM) 3.11 L 2.87 L Hgb (14.0 - 18.0 G/DL) 8.3 L 7.6 L Hct (42 - 52 %) 25.7 L 23.5 L MCV (80.0 - 94.0 FL) 82.4 81.8 MCH (27.0 - 31.0 PG) 26.8 L 26.6 L RDW (11.5 - 14.5 %) 18.1 H 17.4 H Plt Count (130 - 400 /CUMM) 146 131 MPV (7.4 - 10.4 FL) 8.7 8.5 Gran % (42.2 - 75.2 %) 74.7 71.0 Lymphocytes % (20.5 - 51.1 %) 17.4 L 21.2 Monocytes % (1.7 - 9.3 %) 7.0 6.4 Eosinophils % (0 - 5 %) 0.7 0.9 Basophils % (0.0 - 2.0 %) 0.2 0.5 Absolute Granulocytes (1.4 - 6.5 /CUMM) 5.9 4.6 Absolute Lymphocytes (1.2 - 3.4 /CUMM) 1.4 1.4 Absolute Monocytes (0.10 - 0.60 /CUMM) 0.6 0.4 Absolute Eosinophils (0.0 - 0.7 /CUMM) 0.1 0.1 Absolute Basophils (0.0 - 0.2 /CUMM) 0 0 PUBS MCHC (33.0 - 37.0 G/DL) 32.5 L 32.5 L 02/03 05 2200 1400 Chemistry Sodium (137 - 145 mmol/L) 133 L Potassium (3.5 - 5.1 mmol/L) 3.4 L Chloride (98 - 107 mmol/L) 107 Carbon Dioxide (22 - 30 mmol/L) 21 L Anion Gap (5 - 16) 5 BUN (9 - 20 mg/dL) 6 L Creatinine (0.7 - 1.2 mg/dL) 0.5 L Estimated GFR (>60 ml/min) > 60 Glucose (65 - 99 mg/dL) 88 Calcium (8.4 - 10.2 mg/dL) 7.1 L Phosphorus (2.5 - 4.5 mg/dL) 1.9 L Magnesium (1.6 - 2.3 mg/dL) 1.7 Total Bilirubin (0.2 - 1.3 mg/dL) 1.9 H AST (17 - 59 U/L) 28 ALT (21 - 72 U/L) 34 Albumin (3.5 - 5.0 g/dL) 2.3 L Coagulation PT (9.4 - 12.5 SEC) 24.5 H INR (0.90 - 1.17) 2.35 H Hematology CBC w Diff NO MAN DIFF REQ NO MAN DIFF REQ WBC (4.8 - 10.8 /CUMM) 5.3 4.9 RBC (4.70 - 6.10 /CUMM) 2.86 L 2.82 L Hgb (14.0 - 18.0 G/DL) 7.5 L 7.5 L Hct (42 - 52 %) 23.1 L 22.5 L MCV (80.0 - 94.0 FL) 80.8 80.1 MCH (27.0 - 31.0 PG) 26.1 L 26.5 L RDW (11.5 - 14.5 %) 17.3 H 17.2 H Plt Count (130 - 400 /CUMM) 141 139 MPV (7.4 - 10.4 FL) 8.4 7.9 Gran % (42.2 - 75.2 %) 63.6 65.8 Lymphocytes % (20.5 - 51.1 %) 28.2 24.8 Monocytes % (1.7 - 9.3 %) 5.8 7.2 Eosinophils % (0 - 5 %) 0.9 1.9 Basophils % (0.0 - 2.0 %) 1.5 0.3 Absolute Granulocytes (1.4 - 6.5 /CUMM) 3.4 3.2 Absolute Lymphocytes (1.2 - 3.4 /CUMM) 1.5 1.2 Absolute Monocytes (0.10 - 0.60 /CUMM) 0.3 0.4 Absolute Eosinophils (0.0 - 0.7 /CUMM) 0 0.1 Absolute Basophils (0.0 - 0.2 /CUMM) 0.1 0 PUBS MCHC (33.0 - 37.0 G/DL) 32.4 L 33.1
--- NOTE | 2017-02-06 13:53 | NUR ---
AT 1130 THE PT GOT OOB TO USE THE BEDSIDE COMMODE, AMBULATED AROUND THE BED TO GET IN THE BED ON THE SIDE BY THE GLASS DOOR. UPON RETURN TO BED THE PT'S O2 SAT WAS NOTED TO BE IN THE HIGH 70'S TO LOW 80'S ON 55%HFNC. ELECTRON BEAM PH[employer] MASK MAKER IN TO EVAULATE THE PT AND INCREASED THE PT TO 75%HFNC. THE SAT EVENTUALLY INCREASED TO 97-98% AND AT 1310 ELECTRON BEAM PHOTO MASK MAKER DECREASED THE HIGH FLOW TO 70%. AT 1330 THE PT WAS PLACED ON A 100% NRB IN ANTICIPATION OF GOING FOR A STAT CT ANGIOGRAM OF THE CHEST. PT AMBULATED 2 STEPS TO THE STRETCHED AND HIS GAIT WAS WEAKER THAN AT 1130. THE O2 SAT DECREASED TO 83% ON THE 100%NRB AND TOOK AT LEAST 5 MINUTES TO INCREASE TO 89-90%. PT CURRENTLY OFF THE FLOOR HAVING THE CTA. DR FLORENTINO FALL AND Rich LEVY RN ACCOMPANIED THE PT.
--- NOTE | 2017-02-06 14:05 | RADIOLOGY REPORT ---
EXAMINATION: XR PORTABLE CHEST CLINICAL INFORMATION: Increasing oxygen requirement. Crackles at lung bases. COMPARISON: 02/05/2017 TECHNIQUE: Portable AP view of the chest was obtained. FINDINGS: There is persistent, diffuse interstitial opacity throughout both lungs. The more focal region of airspace opacity in the perihilar region of the right upper lobe has significantly decreased. Probable trace right pleural effusion. No pneumothorax. Cardiac silhouette is normal in size. There are a few old, healed right rib fractures. IMPRESSION: Persistent diffuse interstitial opacity in both lungs could represent cardiogenic edema. Interstitial pneumonitis could have a similar appearance. The more focal region of airspace opacity in the perihilar region of the right upper lobe has decreased compared to 02/05/2017.
--- NOTE | 2017-02-06 14:43 | NUR ---
PT RETURNED FROM CT SCAN AT 1430. TRANSFERRED TO THE BED WITH ASSIST OF 4 PERSONS W/O INCIDENT. CHANGED FROM 100% NRB TO BIPAP AT 100% WITH 1=16 AND E=6 RATE IS 20. PT APPEARS MORE COMFORTABLE. SAT UPON RETURN TO THE UNIT WAS 79% ON A 100% NRB. WILL CONTINUE TO MONITOR.
--- NOTE | 2017-02-06 15:03 | CT SCAN REPORT ---
EXAMINATION: CT ANGIOGRAM OF THE CHEST WITH CONTRAST (CT PULMONARY ANGIOGRAM FOR PE) CLINICAL INFORMATION: Desaturation. History of deep vein thrombosis and IVC filter. Evaluate for pulmonary embolism. COMPARISON: Recent chest radiographs from 02/05/2017 and 02/06/2017. TECHNIQUE: Prior to contrast administration, noncontrast localization images were obtained. Subsequently, multidetector volumetric imaging was performed from the thoracic inlet to below the diaphragms following the administration of 95 mL of Optiray 350 intravenous contrast. No contrast reaction reported. Sagittal, coronal, and MIP oblique sagittal reformatted images were obtained on the CT workstation, uploaded to PACS, and reviewed. Total exam dose-length product 533 mGy-cm FINDINGS: QUALITY OF STUDY/CONTRAST BOLUS: Satisfactory. PULMONARY ARTERIES: No filling defects are identified in the main, lobar or segmental vessels. THORACIC AORTA: Atherosclerotic calcification of the thoracic aorta without acute intramural hematoma, aneurysm or dissection. There is a bovine configuration of the aortic arch. Calcified atherosclerotic plaque produces [id number] stenosis of the proximal right subclavian artery, moderate stenosis of the mid to distal right subclavian artery, and moderate stenosis of the distal left subclavian artery. LUNGS AND PLEURA: There is diffuse interlobular and intralobular septal thickening in both lungs with some patchy areas of relative sparing. The areas of disease sparing are most conspicuous within lower lung zones, particularly in the posterior right lower lobe. Small bilateral pleural effusions are present. There is a region of subsegmental atelectasis in the medial basal segment of the right lower lobe. Mild atelectasis is present in the dependent aspect of the left lower lobe. No pneumothorax. MEDIASTINUM: The heart size is normal. There is severe three-vessel coronary artery atherosclerotic calcification. No pericardial effusion. No evidence of septal bowing or right heart strain. The esophagus and thyroid gland are unremarkable. LYMPHATICS: No axillary or hilar lymphadenopathy. There are borderline enlarged subcarinal lymph nodes, likely reactive to the pulmonary disease. UPPER ABDOMEN: The liver has lobulated contour. Correlate for history of chronic hepatitis/cirrhosis. No focal lesions are identified in the examined portion of the liver. The visualized portions of the adrenal glands are unremarkable. No reflux of contrast into the hepatic veins to suggest elevated right heart pressures. OSSEOUS STRUCTURES: No acute findings in the degenerated spine. Several thoracic vertebra exhibit mild anterior height loss, including T11, which also has a Schmorl's node at its superior endplate. There are several old, healed, bilateral rib fractures. IMPRESSION: 1. Severe atherosclerotic disease of the coronary arteries. Also, there is atherosclerotic disease of the thoracic aorta and major branch vessels (e.g. subclavian arteries) without aneurysm. 2. Interstitial pulmonary edema, small pleural effusions and bibasilar atelectasis. 3. No evidence of pulmonary embolism. 4. Liver has lobulated contour, suggestive of cirrhosis. Recommend correlation with liver function tests.
--- NOTE | 2017-02-06 15:15 | PN- CRCU ---
Subjective HPI/Critical Care Issues: The patient is awake and alert. The patient has become progressively hypoxemic, requiring increased amounts of oxygen. He is currently on high flow oxygen with saturations in the 90s. The patient desaturates with each attempt at ambulation. A CT angiogram was performed noting the patient has no evidence of poor embolism but does have evidence of interstitial pulmonary edema. The patient is currently comfortable on intermittent high flow/BiPAP. Objective Current Medications: Current Medications Sig/Lillie Start time Last Medication Dose Route Stop Time Status Admin Acetaminophen 650 MG Q6P PRN 02/02 2000 AC 02/05 PO 0104 Acetaminophen 1,000 MG Q6P PRN 02/02 2000 AC IV Albuterol Sulfate 3 ML BID 02/05 1000 AC 02/06 INH 0923 Albuterol Sulfate 2 PUF Q4-6 PRN PRN 02/03 0645 AC 02/04 INH 2320 Ampicillin Sodium/ 1,500 MG Q6H 02/06 0100 AC 02/06 Sulbactam Sodium IV 1300 Sodium Chloride 100 ML Ampicillin Sodium/ 1,500 MG Q6H 02/05 0300 DC 02/05 Sulbactam Sodium IV 1900 Sodium Chloride 100 ML Benzonatate 100 MG TID 02/05 1745 AC 02/06 PO 1001 Budesonide/ 2 PUF BID 02/03 1000 AC 02/06 Formoterol Fumarate INH 1001 Furosemide 20 MG ONCE ONE 02/06 1100 DC 02/06 IV 02/06 1101 1114 Furosemide 20 MG .STK-MED ONE 02/06 0001 DC IV 02/06 0002 Furosemide 20 MG ONCE ONE 02/05 2345 DC 02/06 IV 02/05 2346 0007 Furosemide 40 MG ONCE ONE 02/05 2245 CAN IV 02/05 2246 Furosemide 20 MG ONCE ONE 02/05 2130 DC 02/05 IV 02/05 2131 2136 Furosemide 20 MG ONCE ONE 02/05 1645 DC 02/05 IV 02/05 1646 1859 Gabapentin 300 MG Q8 02/03 0620 AC 02/06 PO 1347 Magnesium Oxide 400 MG BID 02/06 1000 AC 02/06 PO 1001 Methylprednisolone 40 MG .STK-MED ONE 02/06 0000 DC IM 02/06 0001 Methylprednisolone 40 MG Q6 02/05 2359 AC 02/06 IV 1149 Omeprazole 20 MG BID 02/06 2200 AC PO Ondansetron HCl 4 MG .STK-MED ONE 02/06 0004 DC IM 02/06 0005 Ondansetron HCl 4 MG ONCE ONE 02/05 2345 DC 02/06 IV 02/05 2346 0010 Pantoprazole Sodium 40 MG Q5H 02/02 1800 DC 02/06 Sodium Chloride 100 ML IV 1114 Patient Medication 1 UNIT ONE NR 02/06 1200 DC Teaching ED 02/06 1230 Potassium Chloride 40 MEQ ONCE ONE 02/06 1145 DC 02/06 PO 02/06 1146 1149 Potassium Chloride 20 MEQ DAILY 02/06 1000 DC 02/06 PO 02/07 1001 1001 Pravastatin Sodium 40 MG 1700 02/04 1700 AC 02/05 PO 1815 Tiotropium [employer] 1 PUF DAILY 02/05 1208 AC 02/06 INH 1001 Vital Signs & I&O Last 24 Hrs of Vitals and I&O: Vital Signs Date Time Temp Pulse Resp B/P B/P Pulse O2 O2 Flow FiO2 Mean Ox Delivery Rate 02/06 1505 93 100 02/06 1410 93 96 02/06 1400 98.0 93 27 12/02/06 1200 98.0 106 28 112/68 02/06 1200 96 Nasal 75% Cannula 02/06 1000 97.0 101 28 115/63 02/06 0924 95 Nasal 55% Cannula 02/06 0800 97.0 94 24 106/56 02/06 0800 97 Nasal 60% Cannula 02/06 0800 97.0 94 24 106/86 97 Nasal 60% Cannula 02/06 0538 93 Nasal 60% Cannula 02/06 0200 100 28 113/55 02/06 0110 85 Nasal 45% Cannula 02/06 0000 98.7 110 20 130/70 02/06 0000 98.7 110 20 130/70 93 Nasal 60% Cannula 02/06 0000 97 Nasal 60% Cannula 02/05 2151 93 Nasal 45% Cannula 02/06 2000 99.1 113 25 128/64 02/05 2000 93 Nasal 6.0L Cannula 02/05 1630 92 Nasal 6.0L Cannula 02/05 1600 98.7 113 24 130/70 02/05 1600 94 Nasal 6.0L Cannula 02/05 1600 98.7 113 24 130/70 94 Nasal 6.0L Cannula Intake & Output 02/06 1600 02/06 0800 02/06 0000 Intake Total 188 670 7776 Output Total 325 1450 900 Balance 437 -888 100 Intake, IV 212 362 160 Intake, Oral 550 200 840 Number 1 Bowel Movements Output, Stool 500 Output, Urine 325 950 900 Exam General Appearance: no apparent distress, alert, comfortable Head: atraumatic, normal appearance Neck: supple Respiratory: bilateral wheezing and crackles scattered throughout, lungs expand symmetrically Cardiovascular: regular rate/rhythm Abdomen: normal bowel sounds, soft, non-tender Extremities: no edema Skin: intact, normal color, warm/dry Results Last 24 Hrs of Lab Results: Laboratory Tests 02/06/17 0515: Anion Gap 7, Estimated GFR > 60, Glucose 125 H, Calcium 7.1 L, Phosphorus 2.3 L, Magnesium 1.7, Total Bilirubin 2.0 H, AST 33, ALT 35, Albumin 2.4 L, PT 17.0 H, INR 1.63 H, APTT 35, CBC w Diff NO MAN DIFF REQ, RBC 3.06 L, MCV 83.1 , MCH 26.9 L, RDW 18.5 H, MPV 8.5, Gran % 93.5 H, Lymphocytes % 3.6 L, Monocytes % 2.7, Eosinophils % 0, Basophils % 0.2, Absolute Granulocytes 10.3 H , Absolute Lymphocytes 0.4 L, Absolute Monocytes 0.3, Absolute Eosinophils 0, Absolute Basophils 0, PUBS MCHC 32.4 L 02/05/170: pH 7.55 H, pCO2 23 L, pO2 52 L, HCO3 20 L, ABG O2 Sat (Measured) 88.0 L, P- 50 (Temp Corrected) N, Carboxyhemoglobin 0.9 L, O2 Concentration % 6L, Temperature 99.1, O2 Delivery Method NC, Phlebotomy Draw Site RIGHT BRACHIAL 02/05/17 1700: CBC w Diff NO MAN DIFF REQ, RBC 3.26 L, MCV 82.9, MCH 27.1, RDW 18.2 H, MPV 8.5, Gran % 78.8 H, Lymphocytes % 12.9 L, Monocytes % 7.1, Eosinophils % 0.4, Basophils % 0.8, Absolute Granulocytes 7.9 H, Absolute Lymphocytes 1.3, Absolute Monocytes 0.7 H, Absolute Eosinophils 0, Absolute Basophils 0.1, PUBS MCHC 32.7 L Last 24 Hrs of Micro Results: Cultures are negative to date. Diagnostic Data CT Scan Findings: 1. Severe atherosclerotic disease of the coronary arteries. Also, there is atherosclerotic disease of the thoracic aorta and major branch vessels (e.g. subclavian arteries) without aneurysm. 2. Interstitial pulmonary edema, small pleural effusions and bibasilar atelectasis. 3. No evidence of pulmonary embolism. 4. Liver has lobulated contour, suggestive of cirrhosis. Recommend correlation with liver function tests. Impression/Plan Impression/Plan Impression/Plan: 1. Acute blood loss anemia, likely upper GI bleed in the setting of a supratherapeutic INR and coagulopathy induced by Coumadin. No current evidence of acute blood loss. 2. Acute hypoxemic respiratory failure likely secondary to volume overload in the setting of multiple transfusions and IV fluid resuscitation. 3. COPD with mild bronchospasm. 4. Electrolyte abnormalities. 5. Positive troponin. 6. EtOH abuse. No significant evidence of withdrawal. 7. Recurrent lower extremity DVTs, status post IVC filter. Recommendations: * Attempt Meyer catheter placement for strict I's and O's. * Continue with diuresis as recommended by cardiology. * Continue TRC for nebulizer treatments. Continue Symbicort. * Spiriva 1 inhalation every morning. Please start today. * Continue IV Unasyn. * Follow up culture results. * Monitor on EtOH withdrawal precautions. * Continue MVI/thiamine/folate. * DVT prophylaxis with Alps. * Continue mild to moderate pain pathway. * Continue to monitor closely in the critical care unit.
--- NOTE | 2017-02-06 16:45 | NUR ---
#12FR COUDE CATH PLACED BY VILMA GAN PA-C AT 1600, UA/URINE CULTURE SENT. PT HAS BEE WEANED DOWN TO 80% ON THE BIPAP WITH AN 02 SAT OF 98%. AT THIS TIME THE PT HAS BEEN PLACED ON 80% HFNC IN ORDER TO EAT DINNER. WILL CONTINUE TO MONITOR.
--- NOTE | 2017-02-06 18:06 | NUR ---
PT INITIALLY TOLERATED THE 80% HFNC BUT THEN THE O2 SAT DIPPED INTO THE MID TO HIGH 80'S. INCREASED TO A 100% HFNC, WHICH THE PT STILL REMAINS ON, AND THE O2 SAT HAS NOW RISEN TO 93-97%. PT PREFERS THE HFNC. WILL CONTINUE TO MONITOR.
[2017-02-07] VITALS (8 sets, daily range): BP systolic 100–123; BP diastolic 50–66
--- NOTE | 2017-02-07 | NUR ---
PATIENT ALERT. MONITOR SINUS RHYTHM AT RATE OF 97.O2 ON VIA HIGH FLOW AT 85%.O2 SAT=96%.NO DYSPNEA NOTED.REQUESTED RESPIRATORY TREATMENT. LUNG SOUNDS RHONCHI UPPER AIRWAY.
--- NOTE | 2017-02-07 05:15 | NUR ---
PATIENT SAT ON EDGE OF BED. PRESENTLY ON 85% HIGH FLOW O2.WILL DESAT WITH EXERTION.LUNG SOUNDS RHONCHI VS CRACKLES. SEEN BY RESPIRATORY THERAPIST ED.RESPIRATORY TREATMENT GIVEN. NOTIFIED.
[2017-02-07 05:35] LABS: ABSOLUTE BASOPHIL COUNT 0 /CUMM (0.0-0.2); ABSOLUTE LYMPH COUNT 0.6 /CUMM (1.2-3.4); ABSOLUTE MONOCYTE COUNT 0.6 /CUMM (0.10-0.60); HEMATOCRIT 26.5 % (42-52); RBC DISTRIBUTION WIDTH 18.7 % (11.5-14.5)
[2017-02-07 05:39] LABS: ABSOLUTE EOSINOPHIL COUNT 0.1 /CUMM (0.0-0.7); ABSOLUTE GRANULOCYTE CT 16.5 /CUMM (1.4-6.5); BASOPHIL % 0.1 % (0.0-2.0); EOSINOPHIL % 0.3 % (0-5); MEAN CORPUSCULAR HGB 26.6 PG (27.0-31.0); MEAN CORPUSCULAR HGB CONC 31.9 G/DL (33.0-37.0); MEAN CORPUSCULAR VOLUME 83.5 FL (80.0-94.0); MEAN PLATELET VOLUME 8.9 FL (7.4-10.4); PLATELET COUNT 149 /CUMM (130-400); RED BLOOD CELL CT 3.17 /CUMM (4.70-6.10)
[2017-02-07 05:43] LABS: WHITE BLOOD CELL COUNT 17.8 /CUMM (4.8-10.8)
--- NOTE | 2017-02-07 06:15 | NUR ---
PATIENT'S RESPIRATORY STATUS IMPROVED AFTER RESPIRATORY TREATMENT.COTINUES ON 85% HIGH FLOW.
--- NOTE | 2017-02-07 09:38 | PN- Resident CRCU ---
Subjective HPI/CRCU Issues: Following for: -Acute blood loss anemia -Acute hypoxic respiratory failure -COPD -Positive troponin Patient was seen and examined this morning, he was lying comfortably in bed with a high flow nasal cannula, reported cough with clear sputum production, denied fever, chills, diaphoresis, chest pain, palpitation. Patient denied any abdominal pain, nausea or vomiting, change in the color of urine terms of hematuria, melena or hematochezia. Patient denied any lightheadedness, vision changes. Right lower extremity has 1x1 crusted wound with area of erythema that seemed tiny bit warmer than the left leg, patient reported that he has this erythema for a long time and it is in fact improved significantly from what it was. 24 Hour Events: Temperature 97.6, MAXIMUM TEMPERATURE 98.2 Heart rate lowest 84, highest 106 sinus rhythm Blood pressure lowest 102/58, highest 129/67 Respiratory rate 24 on 85% flow oxygen saturating 97% Intake 1473, output 1450 Objective Vital Signs & I&O Last 8 Hrs of Vitals and I&O: Intake & Output 02/07 1600 Intake Total 892 Output Total 950 Balance -58 Intake, IV 172 Intake, Oral 720 Number 0 Bowel Movements Output, Urine 950 Exam General Appearance: well developed/nourished, no apparent distress, alert Head: atraumatic, normal appearance Ears, Nose, Throat: normal pharynx, normal ENT inspection Neck: normal inspection, supple, full range of motion Respiratory: bilateral decreased air entry, diffuse wheeze and rhonchi Cardiovascular: regular rate/rhythm Gastrointestinal: normal bowel sounds, soft, non-tender, no organomegaly Extremities: normal inspection, normal capillary refill, normal range of motion, bilateral lower extremity trace edema, right leg has an area of one by one crusted wound with erythema Current Medications: Current Medications Sig/Lillie Start time Last Medication Dose Route Stop Time Status Admin Acetaminophen 650 MG Q6P PRN 02/03 2000 AC 02/07 PO 1136 Acetaminophen 1,000 MG Q6P PRN 02/03 2000 AC IV Albuterol Sulfate 3 ML EVERY 4 HRS/AWAKE 02/07 1200 AC 02/07 INH 1613 Albuterol Sulfate 3 ML BID 02/05 1000 DC 02/07 INH 0516 Albuterol Sulfate 2 PUF Q4-6 PRN PRN 02/03 0645 AC 02/04 INH 2320 Ampicillin Sodium/ 1,500 MG Q6H 02/06 2100 AC 02/07 Sulbactam Sodium IV 1552 Sodium Chloride 100 ML Ampicillin Sodium/ 1,500 MG Q6H 02/06 0100 DC 02/06 Sulbactam Sodium IV 1300 Sodium Chloride 100 ML Benzonatate 100 MG TID 02/05 1745 AC 02/07 PO 1552 Budesonide/ 2 PUF BID 02/03 1000 AC 02/07 Formoterol Fumarate INH 0956 Folic Acid 1 MG DAILY 02/07 1000 AC 02/07 PO 0956 Furosemide 100 MG Q20H 02/07 1230 AC 02/07 Sodium Chloride 100 ML IV 1244 Furosemide 40 MG ONCE ONE 02/07 1015 DC 02/07 IV PUSH 02/07 1016 1013 Gabapentin 300 MG Q8 02/03 0620 AC 02/07 PO 1418 Magnesium Oxide 400 MG BID 02/06 1000 AC 02/07 PO 0956 Methylprednisolone 40 MG Q6 02/05 2359 AC 02/07 IV 1136 Multivitamins 1 TAB DAILY 02/07 1000 AC 02/07 PO 0956 Omeprazole 20 MG BID 02/06 2200 AC 02/07 PO 0956 Phosphate 250 MG ONCE ONE 02/07 0745 DC 02/07 PO 02/07 0746 0837 Potassium Chloride 40 MEQ DAILY 02/08 1000 AC PO Potassium Chloride 60 MEQ ONCE ONE 02/07 0715 DC 02/07 PO 02/07 0716 0837 Pravastatin Sodium 40 MG 1700 05/ 1700 AC 02/07 PO 1551 Thiamine HCl 50 MG DAILY 02/07 1000 AC 02/07 PO 0956 Tiotropium [place] 1 PUF DAILY 02/05 1208 AC 02/07 INH 0956 Impression/Plan Impression/Problem List Impression: Mr. Flores is a pleasant 61 year old male with PMH asthma, dyslipidemia, alcohol abuse, previous alcohol withdrawl seizure, and DVT x 2 (2014, August 2016) currently on coumadin who presented with chief complaint of several episodes of coffe-ground emesis and dark, tarry stools without overt blood/ clots. Associated symptoms at time of presentation included easy bleeding/ brusing of his extremities and dyspnea on exertion. Of note, patient was started on anticoagulation with his second episode of DVT in August of 2016. He was inadvertently placed on both xarelto by his PCP and Coumadin by Dr. De Santiago, vascular surgery, until 1-2 weeks later this was noted and his PCP discontinued xarelto. Patient is currently admitted to the ICU and the following is the management: 1. Acute blood loss anemia secondary to GI bleed in the setting of supratherapeutic INR * GI consult placed and appreciated * Continue to hold coumadin, patient has IVC filter, patient will have outpatient colonoscopy * Patient is s/p EGD which was grossly normal, no active bleeding * No further bleeding noted * CBC now stable after 4 units * INR is subtherapeutic s/p 4 units FFP and holding coumadin, s/p IVC filter placement as patient will be off anticoagulation for some time before he has colonoscopy * Switch Protonix drip to Protonix 40 mg daily * Strict Is/Os 2. Elevated troponins * Troponins peaked at 0.21, have since trended down * Patient denies any chest pain or cardiac symptoms * Cardio consult placed and appreciated, follow recomendations * Echocardiogram shows normal EF at 60%, trace MR, mild-mod TR, moderate pulm HTN * Patient will likely require treadmill nuclear stress test as an outpatient * Continue statin 3. Alcohol abuse * CIWA scoring, patient scoring 0 * Ativan PRN per CIWA protocol 4. History of DVT * Bilateral lower extremity venous dopplers shows extensive left lower extremity near occlusive DVT, no RLE DVT * Hold coumadin due to acute blood loss anemia * Vascular sugery evaluated patient, IVC filter was placed, we need to hold coumadin for some time until he has colonoscopy 5. Acute respiratory distress in setting of likely underlying COPD * CTA was obtained yesterday give a increased shortness of breath, did not reveal any signs of PE but interstitial pulmonary edema, small pleural effusions and bibasilar. * Will start IV Lasix drip and monitor ins and outs * Continue albuterol inhaler PRN for shortness of breath, add spiriva daily * Continue unasyn * Consideration for COPD as patient has been been smoking for 20 years, 1/2 PPD * Tobacco cessation counseling provided * Of note, echo also shows moderate pulmonary HTN 6. Chronic pain * Continue neurontin 300 mg PO Q8 * PO tylenol for mild pain, IV tylenol for moderate pain FULL CODE DVTP: [facility] Mild-moderate pain pathway Problem List: 1. GI bleed 2. Upper respiratory infection 3. DVT (deep venous thrombosis) Pain Ratin Tomorrow's Labs & Rationales: CBC, ICU bundle Plan DVT/Prophylaxis: mechanical (no pharm 2/2 acute blood loss)
--- NOTE | 2017-02-07 10:05 | PN- CRCU ---
Subjective HPI/Critical Care Issues: The patient has continued to worsen despite diuresis. He is currently saturating in the mid 90s on 90% high flow oxygen. He appears to have mild respiratory distress with use of accessory muscles. He reports not feeling dyspneic. He has no significant cough, sputum production, fever or chills. CT angiogram yesterday showed no evidence of pulmonary embolism, but did confirm the presence of pulmonary edema. Objective Current Medications: Current Medications Sig/Lillie Start time Last Medication Dose Route Stop Time Status Admin Acetaminophen 650 MG Q6P PRN 02/02 2000 AC 02/05 PO 0104 Acetaminophen 1,000 MG Q6P PRN 02/02 2000 AC IV Albuterol Sulfate 3 ML EVERY 4 HRS/AWAKE 02/07 1200 AC INH Albuterol Sulfate 3 ML BID 02/05 1000 DC 02/07 INH 0516 Albuterol Sulfate 2 PUF Q4-6 PRN PRN 02/03 0645 AC 02/04 INH 2320 Ampicillin Sodium/ 1,500 MG Q6H 02/06 2100 AC 02/07 Sulbactam Sodium IV 0956 Sodium Chloride 100 ML Ampicillin Sodium/ 1,500 MG Q6H 02/06 0100 DC 02/06 Sulbactam Sodium IV 1300 Sodium Chloride 100 ML Benzonatate 100 MG TID 02/05 1745 AC 02/07 PO 0956 Budesonide/ 2 PUF BID 02/03 1000 AC 02/07 Formoterol Fumarate INH 0956 Folic Acid 1 MG DAILY 02/07 1000 AC 02/07 PO 0956 Furosemide 20 MG ONCE ONE 02/06 1100 DC 02/06 IV 02/06 1101 1114 Gabapentin 300 MG Q8 02/03 0620 AC 02/07 PO 0530 Lidocaine 5 NEO .STK-MED ONE 02/06 1457 DC TOP 02/06 1458 Magnesium Oxide 400 MG BID 02/06 1000 AC 02/07 PO 0956 Methylprednisolone 40 MG Q6 02/05 2359 AC 02/07 IV 0525 Multivitamins 1 TAB DAILY 02/07 1000 AC 02/07 PO 0956 Omeprazole 20 MG BID 02/06 2200 AC 02/07 PO 0956 Pantoprazole Sodium 40 MG Q5H 02/02 1800 DC 02/06 Sodium Chloride 100 ML IV 1114 Patient Medication 1 UNIT ONE NR 02/06 1200 DC Teaching ED 02/06 1230 Phosphate 250 MG ONCE ONE 02/07 0745 DC 02/07 PO 02/07 0746 0837 Potassium Chloride 60 MEQ ONCE ONE 02/07 0715 DC 02/07 PO 02/07 0716 0837 Potassium Chloride 40 MEQ ONCE ONE 02/06 1145 DC 02/06 PO 02/06 1146 1149 Potassium Chloride 20 MEQ DAILY 02/06 1000 DC 02/06 PO 02/07 1001 1001 Pravastatin Sodium 40 MG 1700 02/04 1700 AC 02/06 PO 1636 Thiamine HCl 50 MG DAILY 02/07 1000 AC 02/07 PO 0956 Tiotropium [place] 1 PUF DAILY 02/05 1208 AC 02/07 INH 0956 Vital Signs & I&O Last 24 Hrs of Vitals and I&O: Vital Signs Date Time Temp Pulse Resp B/P B/P Pulse O2 O2 Flow FiO2 Mean Ox Delivery Rate 02/07 0600 97.6 92 26 113/61 02/07 0516 92 Nasal 90% Cannula 02/07 0400 97 Nasal 85% Cannula 02/07 0057 92 Nasal 85% Cannula 02/07 0000 98.2 97 24 100/60 02/07 0000 98.2 97 24 100/60 96 Nasal 85% Cannula 02/07 0000 96 Nasal 85% Cannula 02/06 2310 99 92 02/06 2200 93 24 112/65 02/07 2000 97.4 97 22 116/72 02/06 2000 98 Nasal 80% Cannula 02/06 1938 94 Nasal 80% Cannula 02/06 1800 97.8 92 29 114/59 02/06 1600 97.8 89 24 124/67 02/06 1600 97.8 89 24 116/61 97 BIPAP 80% 02/06 1600 98 BIPAP 80% 02/06 1505 93 100 02/06 1410 93 96 02/06 1400 98.0 93 27 12/67 02/06 1200 98.0 106 28 112/68 02/06 1200 96 Nasal 75% Cannula Intake & Output 02/07 1600 02/07 0800 02/07 0000 Intake Total 200 511 Output Total 325 800 Balance -125 -289 Intake, IV 100 111 Intake, Oral 100 400 Output, Urine 325 800 Exam General Appearance: Awake and alert, increased respiratory distress Head: atraumatic, normal appearance Neck: supple Respiratory: bilateral wheezing and crackles scattered throughout, lungs expand symmetrically Cardiovascular: regular rate/rhythm Abdomen: normal bowel sounds, soft, non-tender Extremities: no edema Skin: intact, normal color, warm/dry Results Last 24 Hrs of Lab Results: Laboratory Tests 02/07/17 0500: Anion Gap 9, Estimated GFR > 60, Glucose 126 H, Calcium 7.7 L, Phosphorus 1.9 L, Magnesium 2.0, Total Bilirubin 1.0, AST 32, ALT 22, Albumin 2.4 L, CBC w Diff MAN DIFF ORDERED, RBC 3.17 L, MCV 83.5, MCH 26.6 L, RDW 18.7 H, MPV 8.9, Gran % 93.0 H, Lymphocytes % 3.3 L, Monocytes % 3.3, Eosinophils % 0.3, Basophils % 0.1, Absolute Granulocytes 16.5 H, Absolute Lymphocytes 0.6 L, Absolute Monocytes 0.6, Absolute Eosinophils 0.1, Absolute Basophils 0, Platelet Estimate ADEQUATE, Polychromasia 1+, Hypochromic-Microcytic 2+, Anisocytosis 1+, PUBS MCHC 31.9 L Impression/Plan Impression/Plan Impression/Plan: 1. Acute blood loss anemia, likely upper GI bleed in the setting of a supratherapeutic INR and coagulopathy induced by Coumadin. No current evidence of acute blood loss. 2. Acute hypoxemic respiratory failure likely secondary to volume overload in the setting of multiple transfusions and IV fluid resuscitation. Rule out TRALI. 3. COPD with mild bronchospasm. 4. Electrolyte abnormalities. 5. Positive troponin. 6. EtOH abuse. No significant evidence of withdrawal. 7. Recurrent lower extremity DVTs, status post IVC filter. 8. Increased leukocytosis in the setting of IV steroids. Recommendations: * Continue with diuresis as recommended by cardiology. * Continue TRC for nebulizer treatments. Continue Symbicort. * Spiriva 1 inhalation every morning. * Continue IV Unasyn. * Follow up culture results. * Monitor on EtOH withdrawal precautions. * Continue MVI/thiamine/folate. * DVT prophylaxis with Alps. * Continue mild to moderate pain pathway. * Continue to monitor closely in the critical care unit. * Low threshold for intubation if the patient's respiratory status worsens.
--- NOTE | 2017-02-07 10:17 | PN- Cardiology ---
Subjective Subjective: The patient has become more hypoxic and his oxygen requirements are increasing. He is currently on 90% oxygen by nasal oxygen and is refusing BiPAP. He is not having any chest pain. He is not having any arrhythmias. He received 20 mg of Lasix last evening with fair diuresis. He was just given another 40 mg of Lasix IV. His CT of the chest is consistent with interstitial edema. Objective Vital Signs and I&Os Vital Signs Date Time Temp Pulse Resp B/P B/P Pulse O2 O2 Flow FiO2 Mean Ox Delivery Rate 02/07 0600 97.6 92 26 113/61 02/07 0516 92 Nasal 90% Cannula 02/07 0400 97 Nasal 85% Cannula 02/07 0057 92 Nasal 85% Cannula 02/07 0000 98.2 97 24 100/60 02/07 0000 98.2 97 24 10060 96 Nasal 85% Cannula 02/07 0000 96 Nasal 85% Cannula 02/06 2310 99 92 02/06 2200 93 24 112/65 02/07 2000 97.4 97 22 116/72 02/07 2000 98 Nasal 80% Cannula 02/06 1938 94 Nasal 80% Cannula 02/06 1800 97.8 92 29 114/59 02/06 1600 97.8 89 24 124/67 02/06 1600 97.8 89 24 116/61 97 BIPAP 80% 02/06 1600 98 BIPAP 80% 02/06 1505 93 100 02/06 1410 93 96 02/06 1400 98.0 93 27 12/67 02/06 1200 98.0 106 28 112/68 02/06 1200 96 Nasal 75% Cannula Intake & Output 02/07 1600 02/07 0800 02/07 0000 02/06 1600 02/06 0800 02/06 0000 Intake Total 200 511 149 589 3283 Output Total 325 266 907 9723 900 Balance -125 -289 437 -888 100 Intake, IV 100 111 212 362 160 Intake, Oral 100 400 550 200 840 Number 1 Bowel Movements Output, Stool 500 Output, Urine 325 800 325 950 900 Physical Exam: HEENT exam is normal Chest reveals rhonchi and some mild expiratory wheezing Heart is regular without murmurs Extremities no edema Current Medications: Current Medications Sig/Lillie Start time Last Medication Dose Route Stop Time Status Admin Acetaminophen 650 MG Q6P PRN 02/03 2000 AC 02/05 PO 0104 Acetaminophen 1,000 MG Q6P PRN 05/09 2000 AC IV Albuterol Sulfate 3 ML EVERY 4 HRS/AWAKE 02/07 1200 AC INH Albuterol Sulfate 3 ML BID 02/05 1000 DC 02/07 INH 0516 Albuterol Sulfate 2 PUF Q4-6 PRN PRN 02/03 0645 AC 02/04 INH 2320 Ampicillin Sodium/ 1,500 MG Q6H 02/06 2100 AC 02/07 Sulbactam Sodium IV 0956 Sodium Chloride 100 ML Ampicillin Sodium/ 1,500 MG Q6H 02/06 0100 DC 02/06 Sulbactam Sodium IV 1300 Sodium Chloride 100 ML Benzonatate 100 MG TID 02/05 1745 AC 02/07 PO 0956 Budesonide/ 2 PUF BID 02/03 1000 AC 02/07 Formoterol Fumarate INH 0956 Folic Acid 1 MG DAILY 02/07 1000 AC 02/07 PO 0956 Furosemide 20 MG ONCE ONE 02/06 1100 DC 02/06 IV 02/06 1101 1114 Gabapentin 300 MG Q8 02/03 0620 AC 02/07 PO 0530 Lidocaine 5 NEO .STK-MED ONE 02/06 1457 DC [facility] 02/06 1458 Magnesium Oxide 400 MG BID 02/06 1000 AC 02/07 PO 0956 Methylprednisolone 40 MG Q6 02/05 2359 AC 02/07 IV 0525 Multivitamins 1 TAB DAILY 02/07 1000 AC 02/07 PO 0956 Omeprazole 20 MG BID 02/06 2200 AC 02/07 PO 0956 Pantoprazole Sodium 40 MG Q5H 02/02 1800 DC 02/06 Sodium Chloride 100 ML IV 1114 Patient Medication 1 UNIT ONE NR 02/06 1200 DC Teaching ED 02/06 1230 Phosphate 250 MG ONCE ONE 02/07 0745 DC 02/07 PO 02/07 0746 0837 Potassium Chloride 60 MEQ ONCE ONE 02/07 0715 DC 02/07 PO 02/07 0716 0837 Potassium Chloride 40 MEQ ONCE ONE 02/06 1145 DC 02/06 PO 02/06 1146 1149 Potassium Chloride 20 MEQ DAILY 02/06 1000 DC 02/06 PO 02/07 1001 1001 Pravastatin Sodium 40 MG 1700 02/04 1700 AC 02/06 PO 1636 Thiamine HCl 50 MG DAILY 02/07 1000 AC 02/07 PO 0956 Tiotropium [place] 1 PUF DAILY 02/05 1208 AC 02/07 INH 0956 Results Last 48 Hrs of Labs/Mics: Laboratory Tests 02/07/17 0500: Anion Gap 9, Estimated GFR > 60, Glucose 126 H, Calcium 7.7 L, Phosphorus 1.9 L, Magnesium 2.0, Total Bilirubin 1.0, AST 32, ALT 22, Albumin 2.4 L, CBC w Diff MAN DIFF ORDERED, RBC 3.17 L, MCV 83.5, MCH 26.6 L, RDW 18.7 H, MPV 8.9, Gran % 93.0 H, Lymphocytes % 3.3 L, Monocytes % 3.3, Eosinophils % 0.3, Basophils % 0.1, Absolute Granulocytes 16.5 H, Absolute Lymphocytes 0.6 L, Absolute Monocytes 0.6, Absolute Eosinophils 0.1, Absolute Basophils 0, Platelet Estimate ADEQUATE, Polychromasia 1+, Hypochromic-Microcytic 2+, Anisocytosis 1+, PUBS MCHC 31.9 L 02/06/17 0515: Anion Gap 7, Estimated GFR > 60, Glucose 125 H, Calcium 7.1 L, Phosphorus 2.3 L, Magnesium 1.7, Total Bilirubin 2.0 H, AST 33, ALT 35, Albumin 2.4 L, PT 17.0 H, INR 1.63 H, APTT 35, CBC w Diff NO MAN DIFF REQ, RBC 3.06 L, MCV 83.1 , MCH 26.9 L, RDW 18.5 H, MPV 8.5, Gran % 93.5 H, Lymphocytes % 3.6 L, Monocytes % 2.7, Eosinophils % 0, Basophils % 0.2, Absolute Granulocytes 10.3 H , Absolute Lymphocytes 0.4 L, Absolute Monocytes 0.3, Absolute Eosinophils 0, Absolute Basophils 0, PUBS MCHC 32.4 L 02/05/17 2120: pH 7.55 H, pCO2 23 L, pO2 52 L, HCO3 20 L, ABG O2 Sat (Measured) 88.0 L, P- 50 (Temp Corrected) N, Carboxyhemoglobin 0.9 L, O2 Concentration % 6L, Temperature 99.1, O2 Delivery Method NC, Phlebotomy Draw Site RIGHT BRACHIAL 02/05/17 1700: CBC w Diff NO MAN DIFF REQ, RBC 3.26 L, MCV 82.9, MCH 27.1, RDW 18.2 H, MPV 8.5, Gran % 78.8 H, Lymphocytes % 12.9 L, Monocytes % 7.1, Eosinophils % 0.4, Basophils % 0.8, Absolute Granulocytes 7.9 H, Absolute Lymphocytes 1.3, Absolute Monocytes 0.7 H, Absolute Eosinophils 0, Absolute Basophils 0.1, PUBS MCHC 32.7 L Recent Imaging Studies: CTA Chest IMPRESSION: 1. Severe atherosclerotic disease of the coronary arteries. Also, there is atherosclerotic disease of the thoracic aorta and major branch vessels (e.g. subclavian arteries) without aneurysm. 2. Interstitial pulmonary edema, small pleural effusions and bibasilar atelectasis. 3. No evidence of pulmonary embolism. 4. Liver has lobulated contour, suggestive of cirrhosis. Recommend correlation with liver function tests. DICTATED BY: ADAMS STINSON MD DATE/TIME DICTATED:02/06/171444 SMOKING PIPE COATER:BIJAN DATE/TIME TRANSCRIBED:02/06/171444 CONFIDENTIAL, DO NOT COPY WITHOUT APPROPRIATE AUTHORIZATION. <Electronically signed in Other Vendor System> SIGNED BY: ADAMS STINSON MD 02/06/17 9171 Assessment/Plan Assessment/Plan The patient's GI bleeding has stopped. He is off anticoagulation now. He has an IVC filter. His respiratory status has deteriorated probably due to pulmonary vascular congestion. I recommend vigorous diuresis. If he does not diurese well with 40 mg of Lasix I would give him a another dose of 80 mg IV or consider an IV Lasix drip. Continue telemetry? Yes
--- NOTE | 2017-02-07 14:15 | NUR ---
LASIX GTT INCREASED TO 8MG/HR PER DR DUMONT
--- NOTE | 2017-02-07 14:50 | NUR ---
1718-2935: SHIFT NOTE, RECEIVED PT IN BED A+OX3, ON 90% HIFLO. LUNGS INSPIRATORY/EXPIRATORY WHEEZE WITH SOME RHONCHI NOTED. INCREASED WORK OF BREATHING NOTED. 40MG IV LASIX GIVEN AND LASIX GTT STARTED AT 5ML/HR PER DR DUMONT LASIX GTT TURNED UP TO 8ML/HR. TOLERATING PO, NO BM. COUDE SHEARER IN PLACE WITH TEA COLORED URINE. RIGHT AC SKIN TEAR WITH DRESSING. BLE TRACE EDEMA. ON IV SOLUMEDROL AND IV UNASYN. CIWA 0. PATIENT IS OK WITH USING BIPAP IF ABSOLUTELY NECESSARY. WILL MONITOR.
--- NOTE | 2017-02-07 21:04 | NUR ---
AVSS.A/OX3.FOLLOW COMMANDS. NO C/O GEN DISCOMFORT.ROBISON WITH +CMS.+PP, GEN EDEMA.IV ABX CONT ATC.LUNG SOUNDS WHEEZY AND DIMINISHED.C/O SOB AND ON HIGH FLOW 85% WITH SATS >90%. HOB ELEVATED.ENCOURAGE INCREASE CDB.REYNOLDS AT TIMES AND SATS <90%.NEB TX CONT ATC. TARUN PO FAIR.SHEARER PATENT WITH GOOD UO.LASIX GTT CONT VIA PIV SITE.NO PRESSURE ULCER NOTED. PLAN OF CARE REVIEWED
[2017-02-08] VITALS (8 sets, daily range): BP systolic 97–136; BP diastolic 61–76
--- NOTE | 2017-02-08 01:14 | NUR ---
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 WITH OCCASIONAL PVC NOTED, LASIX DRIP INFUSING AT 8 MG/HR ORDERED- SHEARER TO GRAVITY DRAINAGE WITH CLEAR YELLOW UO IN GOOD AMTS MOTED 2350 PATIENT PLACED ON 85% O2 VIA HIGH GUILLERMO NC- BREATHE SOUNDS WITH PRONOUNCED INSPIRATORY AND EXPIRATORY WHEEZES NOTED- NEB TREATMENT GIV[place] 0020 WHEEZING DIMINISHED IN PROMINENCE BY O2 SAT 88% AT REST, DECREASED TO 85% WITH ANY ACTIVITY BY PATIENT, RR 28 TO 33/MIN, HEART RATE 100'S/MIN WITH VENTRICULAR COUPLETS AND FEW TRIPLETS NOTED- RT AND DR KING NOTIFED AND IN AT BEDSIDE 0030 PATIENT PLACED ON BIPAP WITH RR 26, 16/5, FIO2 75% WITH O2 SAT 91 TO 92%, DUODERM DRESSING TO NOSE PER MD FOR PATIENT COMFORT, DR KING ALSO MADE AWARE THAT LEFT FOOT PALE AND COOL TO TOUCH COMPARED TO RIGHT FOOT, ? VERY FAINT DOPLAR PULSE, NO POSTERIOR DOPLAR PULSE FOUND- NO CHANGES IN ORDERS GIVEN AT THIS TIME
[2017-02-08 06:08] LABS: ABSOLUTE BASOPHIL COUNT 0 /CUMM (0.0-0.2); ABSOLUTE EOSINOPHIL COUNT 0 /CUMM (0.0-0.7); ABSOLUTE GRANULOCYTE CT 10.1 /CUMM (1.4-6.5); ABSOLUTE LYMPH COUNT 0.3 /CUMM (1.2-3.4); ABSOLUTE MONOCYTE COUNT 0.6 /CUMM (0.10-0.60); BASOPHIL % 0 % (0.0-2.0); EOSINOPHIL % 0.2 % (0-5); GRANULOCYTE % 91.6 % (42.2-75.2); HEMATOCRIT 26.7 % (42-52); MEAN CORPUSCULAR HGB 26.5 PG (27.0-31.0); MEAN CORPUSCULAR HGB CONC 31.6 G/DL (33.0-37.0); MEAN CORPUSCULAR VOLUME 83.8 FL (80.0-94.0); PLATELET COUNT 130 /CUMM (130-400); RBC DISTRIBUTION WIDTH 19.5 % (11.5-14.5); RED BLOOD CELL CT 3.19 /CUMM (4.70-6.10)
--- NOTE | 2017-02-08 06:50 | NUR ---
PATIENT SLEEPING AT THIS TIME, REMAINS ON BIPAP- O2 SAT 92 TO 93% BUT DOES DECREASE TO 88 TO 90% WITH ANY ACTIVITY, DR DELGADO MADE AWARE THAT LEFT FOOT REMAINS PALE AND COOL COMPARED TO RIGHT FOOT, WITH QUESTIONABLE DOPLAR PULSES- TO ADDRESS
--- NOTE | 2017-02-08 07:09 | PN- Resident CRCU ---
Subjective HPI/CRCU Issues: Patient seen and examined at bedside this AM. He is resting comfortably on BiPAP and admits to both shortness of breath and slight respiratory distress. He denies fever, chills, dizziness, chest pain or other complaints. 24 Hour Events: Patient on BiPAP secondary to low O2 saturations likely 2/2 fluid overload in the setting of CHF. He also remains on lasix drip for this issue. Vascular consult was placed for non-palpable pedal pulses. Patient was noted to be in continued respiratory distress throughout the AM and PaO2/FiO2 ratio 80. Plan to intubate patient which occured around 1:30 pm. Vital signs over the lat 24 hours: T 96.90-Tmax 98.2, HR 90-107, RR 20-32, BP 97-134/50-70, O2 88-97% on High Flow and BiPAP intermittently. Total intake 24 hours: 2006 cc Total output 24 hours: 3210 cc Objective Vital Signs & I&O Last 8 Hrs of Vitals and I&O: T 96.90-Tmax 98.2, HR 90-107, RR 20-32, BP 97-134/50-70, O2 88-97% on High Flow and BiPAP intermittently. Exam General Appearance: well developed/nourished, alert, awake, mild distress, On BiPAP with slight respiratory distress Head: atraumatic, normal appearance Ears, Nose, Throat: normal ENT inspection, hearing grossly normal Neck: normal inspection, supple Respiratory: Tachypnea, wheezing noted in bilateral lung kulkarni with crackles, + respiratory distress Cardiovascular: regular rate/rhythm Gastrointestinal: normal bowel sounds, soft, non-tender Extremities: no edema, Decreased pedal pulses bilaterally, normal sensation bilateral feet. + femoral pulses. , LLE colder than RLE, for which arterial doppler ordered Cranial Nerves: normal hearing, normal speech, PERRL Skin: intact, normal color IV Drips IV Drips: Lasix drip currently at 10 cc/h Nutrition Nutrition: P.O. diet Current Medications: Current Medications Sig/Lillie Start time Last Medication Dose Route Stop Time Status Admin Acetaminophen 650 MG Q6P PRN 02/03 2000 AC 02/07 PO 1136 Acetaminophen 1,000 MG Q6P PRN 02/03 2000 AC IV Albuterol Sulfate 3 ML EVERY 4 HRS/AWAKE 02/07 1200 AC 02/08 INH 1128 Albuterol Sulfate 2 PUF Q4-6 PRN PRN 02/03 0645 AC 02/04 INH 2320 Ampicillin Sodium/ 1,500 MG Q6H 02/06 2100 DC 02/08 Sulbactam Sodium IV 0920 Sodium Chloride 100 ML Aspirin 81 MG DAILY 02/08 1609 AC PO Benzonatate 100 MG TID 02/05 1745 DC 02/08 PO 1045 Budesonide/ 2 PUF BID 02/03 1000 AC 02/08 Formoterol Fumarate INH 1045 Folic Acid 1 MG DAILY 02/07 1000 AC 02/08 PO 1045 Furosemide 80 MG ONCE ONE 02/08 1545 DC 02/08 IV PUSH 02/08 1546 1600 Furosemide 100 MG Q20H 02/07 1230 DC 02/08 Sodium Chloride 100 ML IV 0204 Gabapentin 300 MG Q8 02/03 0620 AC 02/08 PO 0546 Heparin Sodium 25,000 UNIT Q24H 02/08 1330 AC 02/08 (Porcine) IV 1500 Sodium Chloride 500 ML Lorazepam 50 MG Q24H 02/08 1615 AC Dextrose/Water 500 ML IV Lorazepam 2 MG 1400 02/08 1400 DC 02/08 IV 02/08 1401 1356 Magnesium Oxide 400 MG ONE ONE 02/08 0715 DC 02/08 PO 02/08 0716 0815 Magnesium Oxide 400 MG BID 02/06 1000 AC 02/08 PO 1047 Methylprednisolone 40 MG Q6 02/05 2359 AC 02/08 IV 1222 Multivitamins 1 TAB DAILY 02/07 1000 AC 02/08 PO 1045 Nitroglycerin 0.5 GM Q6 02/08 1800 AC TOP Non-Formulary 0 SEE ADMIN CRITERIA 02/08 1345 CAN Medication ANY Omeprazole 20 MG BID 02/06 2200 DC 02/08 PO 1045 Pantoprazole Sodium 40 MG DAILY 02/09 1000 AC IV Pantoprazole Sodium 40 MG DAILY 02/08 1330 DC IV Phosphate 250 MG PC AND AT BEDTIME 02/08 1800 AC PO 02/09 1301 Phosphate 250 MG ONCE ONE 02/08 0715 DC 02/08 PO 02/08 0716 1047 Potassium Chloride 40 MEQ DAILY 02/09 1000 AC PO Potassium Chloride 10 MEQ Q1H 02/08 1415 DC 02/08 IV 02/08 1616 1531 Potassium Chloride 40 MEQ DAILY 02/08 1000 DC 02/08 PO 1045 Potassium Chloride 40 MEQ ONCE ONE 02/08 0700 DC / PO 02/08 0701 0815 Pravastatin Sodium 40 MG 1700 05/11 1700 AC 02/07 PO 1551 Propofol 1,000 MG Q24H 02/08 1345 CAN N/A 100 ML IV Propofol 1,000 MG Q24H 02/08 1345 AC / N/A 100 ML IV 1407 Sodium Phosphate 15 mMol ONE ONE 02/08 0715 DC 02/08 Sodium Chloride 250 ML IV 02/08 1118 0955 Thiamine HCl 50 MG DAILY 02/07 1000 AC / PO 1045 Tiotropium [place] 1 PUF DAILY 02/05 1208 AC 02/08 INH 1045 CXR Findings: IMPRESSION: Relative to the prior studies there has been progression of the interstitial and alveolar airspace opacities within both lungs concerning for progression of pulmonary edema with possible superimposed consolidation. Bilateral pleural effusions are difficult to quantify in the setting of fairly pronounced airspace opacification, but were also present on 02/06/2017. CT Scan Findings: Chest CTA: IMPRESSION: 1. Severe atherosclerotic disease of the coronary arteries. Also, there is atherosclerotic disease of the thoracic aorta and major branch vessels (e.g. subclavian arteries) without aneurysm. 2. Interstitial pulmonary edema, small pleural effusions and bibasilar atelectasis. 3. No evidence of pulmonary embolism. 4. Liver has lobulated contour, suggestive of cirrhosis. Recommend correlation with liver function tests. ECHO Findings: CONCLUSIONS 1. Normal EF of 60%. 2. Trace mitral regurgitation. 3. Mild to moderate tricuspid regurgitation. 4. Moderate pulmonary hypertension. US Findings: Venous doppler: IMPRESSION: 1. Partial recanalization of the previously seen extensive left lower extremity near occlusive DVT is seen with now some flow visualized within the proximal common femoral vein and in the popliteal vein. 2. No evidence of deep venous thrombosis in the right lower extremity. Impression/Plan Impression/Problem List Impression: Mr. Flores is a pleasant 61 year old male with PMH asthma, dyslipidemia, alcohol abuse, previous alcohol withdrawl seizure, and DVT x 2 (2014, August 2016) currently on coumadin who presented with chief complaint of several episodes of coffe-ground emesis and dark, tarry stools without overt blood/ clots. Associated symptoms at time of presentation included easy bleeding/ brusing of his extremities and dyspnea on exertion. Of note, patient was started on anticoagulation with his second episode of DVT in August of 2016. He was inadvertently placed on both xarelto by his PCP and Coumadin by Dr. De Santiago, vascular surgery, until 1-2 weeks later when this was noted and his PCP discontinued Xarelto. In the ED: Vital signs showed a Tmax of 994. HR 117, RR 22, BP 99/54 and O2 saturation of 99% on room air. Labs were significant for H&H 5.3/16.7, Plt 259, Na 131, K 4.1, HCO3 16, Cre 0.6 , Ca 8, Albumin 2.5, INR >10. EKG showed sinus tachycardia and no significant ST/T wave changes. Patient is currently admitted to the ICU and the following is the management: 1. Acute blood loss anemia secondary to GI bleed in the setting of supratherapeutic INR * GI consult placed and appreciated * Continue to hold coumadin, no further bleeding has been noted * Patient is s/p EGD which was grossly normal, no active bleeding * Patient will require colonoscopy likely as an outpatient after discharge * CBC now stable after 4 units prbcs total, will continue to trend daily and transfuse as needed to maintain appropriate H&H * INR now subtherapeutic after 4 units FFP, patient s/p IVC filter placement with IR * Patient started on heparin drip due to concerns for ST changes * IV protonix daily * Strict Is/Os 2. Elevated troponins * Troponins peaked at 0.21 and trended down, however new ST changes noted on EKG today so patient has been started on IV heparin drip per cardio * Troponin again elevated at 0.82, will trend * Cardio consult placed and appreciated, follow recomendations * NTG paste 1/2 inch Q6h started; add IV lopressor 5 mg IV if BP tolerates * Begin aspirin, continue statin * Echocardiogram shows normal EF at 60%, trace MR, mild-mod TR, moderate pulm HTN * Patient will likely require treadmill nuclear stress test as an outpatient 3. Alcohol abuse * CIWA scoring discontinued as patient only scoring 0 4. History of DVT with non-palpable pedal pulses * Bilateral lower extremity venous dopplers shows extensive lef lower extremity near occlusive DVT, no RLE DVT * Hold coumadin due to acute blood loss anemia; Patient now s/p IVC filter placement * Vascular sugery evaluation today appreciated, suggested obtaining LLE artial doppler, f/u results * Highly recommend restarting AC as soon as possible * We have reconsulted GI to discuss when AC may be restarted safely from their standpoint 5. Acute respiratory distress in setting of likely underlying COPD * Consideration for fluid overload in the setting of frequent transfusions, however patient previously spiked a fever * ID consult appreciated, we will discontinue antibiotics and repeat blood cultures today * If patient deteriorates, will cover empirically with IV vanco and ceftaz * Patient s/p intubation today 2/2 PaO2 to FiO2 ratio of 80 and noted respiratory distress * IV lasix drip discontinued in favor of IV lasix boluses as recommended by cardio; aggressive diuresis to maintain negative fluid balance * Continue albuterol inhaler PRN for shortness of breath, spiriva daily * Of note, echo also shows moderate pulmonary HTN 6. Chronic pain * Continue neurontin 300 mg PO Q8 * PO tylenol for mild pain, IV tylenol for moderate pain FULL CODE DVTP: ALPS Heart healthy diet Mild-moderate pain pathway Problem List: 1. GI bleed 2. DVT (deep venous thrombosis) 3. ETOH ABUSE Pain Ratin Tomorrow's Labs & Rationales: CBC (anemia in setting of GIB) ICU bundle (hypokalemia on lasix drip) INR (holding coumadin) Plan DVT/Prophylaxis: mechanical (no pharm 2/2 acute blood loss)
--- NOTE | 2017-02-08 09:03 | PN- CRCU ---
Subjective HPI/Critical Care Issues: The patient is awake and alert. He reports having ongoing dyspnea, however he appears in no distress. He coughs He continues to easily desaturate despite high flow oxygen or BiPAP. His saturation is currently in the mid 90s on 75% oxygen. He remains on a Lasix drip, noting he is negative 1.2 L over the past 24 hours. The patient does have a cough productive of yellow sputum. Objective Current Medications: Current Medications Sig/Lillie Start time Last Medication Dose Route Stop Time Status Admin Acetaminophen 650 MG .STK-MED ONE 02/07 1135 DC PO 02/07 1136 Acetaminophen 650 MG Q6P PRN 02/02 2000 AC 02/07 PO 1136 Acetaminophen 1,000 MG Q6P PRN 02/02 2000 AC IV Albuterol Sulfate 3 ML EVERY 4 HRS/AWAKE 02/07 1200 AC 02/08 INH 0757 Albuterol Sulfate 3 ML BID 02/05 1000 DC 02/07 INH 0516 Albuterol Sulfate 2 PUF Q4-6 PRN PRN 02/03 0645 AC 02/04 INH 2320 Ampicillin Sodium/ 1,500 MG Q6H 02/06 2100 AC 02/08 Sulbactam Sodium IV 0301 Sodium Chloride 100 ML Benzonatate 100 MG TID 02/05 1745 AC 02/07 PO 2118 Budesonide/ 2 PUF BID 02/03 1000 AC 02/07 Formoterol Fumarate INH 2130 Folic Acid 1 MG DAILY 02/07 1000 AC 02/07 PO 0956 Furosemide 100 MG Q20H 02/07 1230 AC 02/08 Sodium Chloride 100 ML IV 0204 Furosemide 40 MG ONCE ONE 02/07 1015 DC 02/07 IV PUSH 02/07 1016 1013 Furosemide 40 MG .STK-MED ONE 02/07 1004 DC IV 02/07 1005 Gabapentin 300 MG Q8 02/03 0620 AC 02/08 PO 0546 Magnesium Oxide 400 MG ONE ONE 02/08 0715 DC PO 02/08 0716 Magnesium Oxide 400 MG BID 02/06 1000 AC 02/07 PO 2118 Methylprednisolone 40 MG Q6 02/05 2359 AC 02/08 IV 0546 Multivitamins 1 TAB DAILY 02/07 1000 AC 02/07 PO 0956 Omeprazole 20 MG BID 02/06 2200 AC 02/07 PO 2118 Phosphate 250 MG ONCE ONE 02/08 0715 DC PO 02/08 0716 Potassium Chloride 40 MEQ DAILY 02/08 1000 AC PO Potassium Chloride 40 MEQ ONCE ONE 02/08 0700 DC PO 02/08 0701 Pravastatin Sodium 40 MG 1700 02/04 1700 AC 02/07 PO 1551 Sodium Phosphate 15 mMol ONE ONE 02/08 0715 AC Sodium Chloride 250 ML IV 02/08 1118 Thiamine HCl 50 MG DAILY 02/07 1000 AC 02/07 PO 0956 Tiotropium Holiday 1 PUF DAILY 02/05 1208 AC 02/07 INH 0956 Vital Signs & I&O Last 24 Hrs of Vitals and I&O: Vital Signs Date Time Temp Pulse Resp B/P B/P Pulse O2 O2 Flow FiO2 Mean Ox Delivery Rate 02/08 0841 96 90 02/08 0800 90 Nasal 100% Cannula 02/08 0750 93 95 02/08 0600 98 32 128/65 02/08 0558 98 92 02/08 0400 96 27 123/69 02/08 0400 96 BIPAP 75% 02/08 0307 94 91 02/08 0200 98 28 97/70 02/08 0103 101 91 02/08 0000 96.9 98 30 136/76 05 0000 92 Nasal 85% Cannula 02/08 0000 96.9 98 30 136/76 92 Nasal 85% Cannula 02/08 0000 92 Nasal 85% Cannula 02/07 2356 97 94 02/07 2148 89 95 02/07 2031 97.6 103 26 120/64 02/07 2031 95 Nasal 85% Cannula 02/07 1925 94 Nasal 85% Cannula 02/07 1615 94 Nasal 80% Cannula 02/07 1600 Nasal 85% Cannula 02/07 1600 97.5 97 20 110/54 02/07 1600 97.5 97 20 110/54 95 Nasal 85% Cannula 02/07 1450 94 Nasal 85% Cannula 02/07 1400 100 22 114/66 02/07 1200 Nasal 90% Cannula 02/07 1200 98.2 107 22 100/50 02/07 1138 88 Nasal 90% Cannula 02/07 1000 100 22 123/61 Intake & Output 02/08 1600 15 0800 0515 0000 Intake Total 210 904 Output Total 1360 900 Balance -1150 4 Intake, IV 160 304 Intake, Oral 50 600 Number 0 Bowel Movements Output, Urine 1360 900 Exam General Appearance: Awake and alert, increased respiratory distress Head: atraumatic, normal appearance Neck: supple Respiratory: bilateral wheezing and crackles scattered throughout, lungs expand symmetrically Cardiovascular: regular rate/rhythm Abdomen: normal bowel sounds, soft, non-tender Extremities: no edema Skin: intact, normal color, warm/dry Impression/Plan Impression/Plan Impression/Plan: 1. Acute blood loss anemia, likely upper GI bleed in the setting of a supratherapeutic INR and coagulopathy induced by Coumadin. No current evidence of acute blood loss. 2. Acute hypoxemic respiratory failure likely secondary to volume overload in the setting of multiple transfusions and IV fluid resuscitation. TRALI is also within the differential diagnosis. 3. COPD with mild bronchospasm. 4. Electrolyte abnormalities. 5. Positive troponin. 6. EtOH abuse. No significant evidence of withdrawal. 7. Recurrent lower extremity DVTs, status post IVC filter. 8. Increased leukocytosis in the setting of IV steroids. Recommendations: * Continue with diuresis/Lasix drip as recommended by cardiology. * Monitor electrolytes every 8 hours today, and aggressively replete. * Continue TR for nebulizer treatments. Continue Symbicort. * Spiriva 1 inhalation every morning. * Start Solu-Medrol 40 mg IV every 6 hours. * Continue IV Unasyn. * Follow up culture results. * Monitor on EtOH withdrawal precautions. * Continue MVI/thiamine/folate. * DVT prophylaxis with Alps. * Continue mild to moderate pain pathway. * Continue to monitor closely in the critical care unit. * Low threshold for intubation if the patient's respiratory status worsens.
--- NOTE | 2017-02-08 09:14 | RADIOLOGY REPORT ---
EXAMINATION: XR PORTABLE CHEST CLINICAL INFORMATION: Worsening shortness of breath. COMPARISON: Chest radiographs from 07/14/2011, 12/07/2012, 02/05/2017, and 02/06/2017 in addition to a CTA chest of 02/06/2017 TECHNIQUE: Portable frontal view of the chest was obtained. FINDINGS: There has been progression of the interstitial and alveolar airspace abnormalities bilaterally relative to the prior studies with a mid to lower lung predominance. Bilateral blunting of the costophrenic angles is suspected. The cardiomediastinal silhouette is stable given differences in technique. No definitive pneumothoraces. The spine is not well-visualized. Elsewhere no convincing acute osseous abnormalities. IMPRESSION: Relative to the prior studies there has been progression of the interstitial and alveolar airspace opacities within both lungs concerning for progression of pulmonary edema with possible superimposed consolidation. Bilateral pleural effusions are difficult to quantify in the setting of fairly pronounced airspace opacification, but were also present on 02/06/2017.
--- NOTE | 2017-02-08 09:28 | NUR ---
REC'D THE PT AT 0800 IN BED WEARING BIPAP AT 75% WITH AN I=16/E=6/RATE=26. AT THAT TIME GENERAL SUPERVISOR PLACED THE PT ON A 100% HFNC FOR BREAKFAST. PT ATTEMPTED TO DRINK 2 SIPS OF COFFEE AND COUGHED. TOLERATED A FEW SIPS OF WATER, POOR APPETITE. BY 0840 THE PT WAS RETURNED TO BIPAP THE O2 SAT WAS 87%(O2 SAT ON BIPAP WAS 95%). WITH ANY ACTIVITY, EVEN ON THE BIPAP, THE PT'S O2 SAT DECREASES TO HIGH 80'S AND TAKES SEVERAL MINUTES TO RETURN TO BASELINE O2 SAT. REMAINS ON A LASIX GTT 100MG/100ML NS AT 8MG/HR OR 8ML/HR. BETWEEN 06 AND 0840 THE PT'S URINE OUTPUT WAS 500ML OF CLEAR YELLOW URINE. PT HAS RHONCHI THROUGHOUT AND IS DECREASED AT THE BASES. A&OX3. PT IS IN A NSR WITHOUT ECTOPY PER THE OIL FIELD OPERATOR. BLE ARE NOTED TO BE HARD WITH EDEMA. L FOOT IS COOL TO THE TOUCH AND UNABLE TO OBTAIN A PEDAL OR POST TIBIAL PULSE WITH THE DOPPLER, CAN PALPATE THE POPLITEAL PULSE. R PEDAL PULSE OBTAINABLE BY DOPPLER. ABD IS SOFT WITH NORMOACTIVE BOWEL SOUNDS.
--- NOTE | 2017-02-08 10:53 | PN- Vascular Surgery ---
Surgical Brief Attending Note Brief Attending Note: This patient was seen by Dr. West on February 04. Vascular consultation was obtained for management of left leg DVT in the setting of GI bleed requiring blood transfusion. Anticoagulation was held and the patient ultimately received an IVC filter by IR. According to Dr. West's note, patient had 1+ bilateral dorsalis pedis pulse. We were asked to see the patient for lack of palpable left pedal pulse. On exam, there are palpable femoral pulses bilaterally. The left foot feels cooler than the right. The patient is able to move his toes and sensation is equal and intact. I am unable to palpate pedal pulses bilaterally. There is however right pedal signals. The patient may have an arterial thrombosis on the left leg. However, this is not limb threatening as the patient denies pain and is able to move his toes with intact sensation. Furthermore, because of his GI bleed, the patient is unable to undergo thrombolysis or resume anticoagulation unless okay by GI. Recommendation would be to obtain left leg arterial ultrasound and resume anticoagulation with heparin once okay by GI.
--- NOTE | 2017-02-08 13:20 | Event Note ---
Event Note Event Note: Patient's most recent electrocardiogram suggests lateral ST-T wave changes. He presently is chest pain-free. I showed Dr. Partida's most recent EKG and also compared to his previous EKG. He recommends IV heparin drip. In regards to his left lower extremity being cold, Dr. Crystal also recommended IV heparin drip however no acute surgical intervention as there is no neurovascular compromise. I personally spoke with Jose Montero MD in the GI suite. He stated that at present the patient does merit anticoagulation and we can start IV heparin. We will monitor routine CBCs and continue IV protonix.
--- NOTE | 2017-02-08 13:49 | Event Note ---
Event Note Event Note: Patient was noted to be tachypneic, tachycardic and persistent mild respiratory distress. Stat ABG was ordered and showed pH 7.49, pCO2 37, pO2 60 and HCO3 27. PaO2:FiO2 ratio suboptimal around 80. Attending physician and resident physician at bedside and decision to intubate patient was made. Anesthesiology intubated patient with 8.0 tube and use of propofol/succinycholine. Follow up CXR ordered and patient started on propofol drip. Post-intubation, next of kin Mily was notified regarding change in condition and need for mechanical ventilation. She was made aware of his condition and was reassured that she may call with any questions or concerns. CXR showes adequate positioning of endotracheal tube and orogastric tube. Patient currently at max of propofol drip. Discussed situation with attending physician Dr. Elisa MD who suggested IV ativan drip and titrating down on propofol drip to maintain hemodynamic stability.
--- NOTE | 2017-02-08 14:43 | RADIOLOGY REPORT ---
EXAMINATION: XR PORTABLE CHEST CLINICAL INFORMATION: ET and OG tube placement. COMPARISON: Chest x-ray from 8:47 AM the same day TECHNIQUE: Portable frontal view of the chest was obtained. FINDINGS: In the interval since the prior study there has been placement of an endotracheal tube with tip terminating 4.8 cm above the tin. An orogastric tube tip terminates below the hemidiaphragm over the stomach. Fairly extensive and bilateral interstitial and alveolar airspace opacities appear slightly increased in conspicuity at the left apex, elsewhere stable. No changes in the cardiomediastinal silhouette. No new pneumothoraces. IMPRESSION: Placement of an endotracheal and orogastric tube in the interval since the prior study. The endotracheal tube terminates 4.8 cm above the tin.
--- NOTE | 2017-02-08 15:17 | NUR ---
AFTER THE PT'S ABG FROM 1242 THE DECISION WAS MADE TO INTUBATE THE PT. ANESTHESIA PREMEDICATED THE PT WITH PROPOFOL 200MCG AND SUCCINYCHOLINE 100MG. AR 1330 THE PT WAS INTUBATED WITH A #8 ETT ON THE R AT 23CM. PLACED ON AN AC-26/550/100%/PEEP OF 5. OGT PLACED AT 50CM TO THE LIP. BY 1350 THE OPT REQUIRED ATIVAN 2MG IV THE PT WOULD NOT STOP BITING THE ETT AND MOVING ABOUT THE BED. ATIVAN HAD LITTLE TO NO EFFECT ON THE PT SO AT 1400 THE PT WAS STARTED ON A PROPOFOL GTT AT 10MCG/KG/MIN WITH NO EFFECT, PT CON'TWITH HIGH RR AND HIGH PRESSURES. AT 1410 THE PROPOFOL WAS INCREASED TO 25MCG AND AT 1425 IT WAS FURTHER INCREASED TO 35MCG. FINALLY, AT 1455 THE PROPOFOL WASINCREASED TO THE MAX DOSE OF 50MCG/KG/MIN. SAS WHICH HAD BEEN A 4-5 IS NOW A 3-4. AT 1500 A HEPRIN GTT WAS INITIATED AT 14.3U/KG/HR. THE ORDER WAS FOR 18U/KG/HR HOWEVER, THI SWOULD PUT THE PT OVER THE MAX HOURLY DOSE OF 1300U/HR. DR LAVELLE VILLEGAS AWARE THE HEP GTTIS RUNNING AT14.3U/KG/HR OR 26ML/HR. PTT DUE AT 2100. THE PT IS HAVING A BEDSIDE DOPPLER PERFORMED OF THE LLE.
--- NOTE | 2017-02-08 15:55 | Cons- Infect Disease ---
General Information and HPI Consulting Request Date of Consult: 02/08/17 Requested By: DALJIT IBRAHIM,GEORGE Reason for Consult: Rule out pneumonia Exam Limitations: clinical condition History of Present Illness: This is a 61-year-old man with a history of alcohol abuse, asthma and recurrent DVT, apparently begun on Coumadin 2 weeks prior to admission on top of Xarel for a left leg DVT, admitted on February 02 after presenting to the emergency room with hematemesis and tarry stools as well as dyspnea on exertion and easy bruising. On admission he was afebrile. Laboratory data revealed a white blood cell count of 10,000, H&H 5 and 17, BUN/creatinine 11 and 0.6, with normal liver enzymes, alcohol level 35, INR greater than 10. Urinalysis negative. Dopplers of both lower extremities revealed partial recanalization of a previously seen extensive left leg nearly occlusive DVT with no evidence of a right leg DVT. He was given packed RBCs, FFP and IV fluids and admitted to the ICU. He developed wheezing with a cough on February 03, with a mildly elevated troponin, and was treated with Lasix. On February 04 he underwent upper endoscopy, which was negative. Overnight February 05 he developed increased respiratory distress with a fever to 101.7. Chest x-ray revealed increased markings bilaterally and he was begun on Unasyn and Solumedrol and continued on Lasix. He has developed increasing respiratory distress and required intubation this morning. He has been afebrile since initiation of steroids. His white blood cell count increased to 18,000 on February 07 but was 11,000 this morning. His troponin increased today to .83. At present he is unable to provide any history as he is intubated. Allergies/Medications Allergies: Coded Allergies: codeine (Mild, SHAKES 12/01/16) Home Med List: Albuterol Sulfate (Ventolin Hfa) 90 MCG HFA.AER.AD 2 PUF INH Q4-6 PRN PRN SHORTNESS OF BREATH Gabapentin (Neurontin) 300 MG CAPSULE 1 CAP PO TID NERVE PAIN (Reported) Mometasone/Formoterol (Dulera 200 Mcg/5 Mcg Inhaler) 200 MCG-5 MCG/ACTUATION HFA.AER.AD 2 PUF INH BID ASTHMA (Reported) Pravastatin Sodium (Pravachol) 40 MG TABLET 1 TAB PO DAILY CHOLESTEROL ( Reported) Ranitidine HCl 300 MG TABLET 1 TAB PO QPM GI (Reported) Warfarin Sodium (Septo) 7.5 MG TABLET 1 TAB PO DAILY BLOOD THINNER ( Reported) Past History Travel History Traveled to [place] past 21 day No Medical History Blood Transfusion Hx: Yes Neurological: peripheral neuropathy EENT: NONE Cardiovascular: hyperlipidemia Respiratory: asthma Gastrointestinal: NONE Hepatic: NONE Renal: NONE Musculoskeletal: NONE Psychiatric: alcohol dependence Endocrine: NONE Blood Disorders: DVT Cancer(s): NONE 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 , Age 62. FATHER (HEART CONDITION). , Age 60+. Psychosocial History Where Do You Live? Home Services at Home: None Smoking Status: Current Everyday Smoker ETOH Use: heavy use Review of Systems Comments Unobtainable Exam & Diagnostic Data Last 24 Hrs of Vital Signs/I&O Vital Signs Date Time Temp Pulse Resp B/P B/P Pulse O2 O2 Flow FiO2 Mean Ox Delivery Rate 02/08 1340 100 05/ 1200 97.4 89 26 122/70 / 1200 95 BIPAP 75% / 1132 91 90 05/ 1000 97.9 94 26 126/66 / 0841 96 90 05/15 0800 97.9 96 37 132/68 05/15 0800 95 BIPAP 75% / 0800 97.9 96 37 132/68 95 BIPAP 75% /15 0800 90 Nasal 100% Cannula / 0750 93 95 05/15 0600 98 32 128/65 05/15 0558 98 92 05/15 0400 96 27 123/69 05/15 0400 96 BIPAP 75% /15 0307 94 91 / 0200 98 28 97/70 / 0103 101 91 05/15 0000 96.9 98 30 136/76 05/15 0000 92 Nasal 85% Cannula /15 0000 96.9 98 30 136/76 92 Nasal 85% Cannula 02/08 0000 92 Nasal 85% Cannula 02/07 2356 97 94 02/078 89 95 02/07 203 97.6 103 26 120/64 02/07 2031 95 Nasal 85% Cannula 02/07 1925 94 Nasal 85% Cannula 02/07 1615 94 Nasal 80% Cannula 02/07 1600 Nasal 85% Cannula 02/07 1600 97.5 97 20 110/54 02/07 1600 97.5 97 20 110 95 Nasal 85% Cannula Intake & Output 02/08 1600 02/08 0800 02/08 0000 Intake Total 629 210 904 Output Total 830 1360 900 Balance -201 -1150 4 Intake, IV 429 160 304 Intake, Oral 200 50 600 Number 0 0 Bowel Movements Output, Urine 830 1360 900 Physical Exam Other Physical Findings: He is sedated on the ventilator, with no response to voice or pain. He is afebrile on steroids. Skin reveals no rash. HEENT exam is negative. Neck is supple with no adenopathy. Lungs bilateral rhonchi. Heart regular rhythm with no murmur. Abdomen is soft, nontender with positive bowel sounds. Back no CVA tenderness. Extremities chronic venous stasis changes with 1-2+ edema both lower extremities. Neuro is without focality. Meyer catheter is in place. Last 24 Hours of Lab Results: Laboratory Tests 02/08 02/08 02/08 02/08 1436 1300 1300 1242 Blood Gas pH (7.35 - 7.45 PH) 7.34 L 7.49 H pCO2 (35 - 45 TORR) 51 H 37 pO2 (80 - 100 TORR) 145 H 60 L HCO3 (21 - 28 MEQ/L) 27 27 ABG O2 Sat (Measured) (>96.0 %) 99.0 93.0 L P-50 (Temp Corrected) YES YES Carboxyhemoglobin (1.5 - 5.0 %) 0.8 L 0.7 L O2 Concentration % 100% 75% Temperature (97.0 - 100.0 FARH) 97.4 97.4 Respiration Rate (BPM) 26 20 O2 Delivery Method VENT BIPAP Vent Mode AC ST Expiratory Pressure (CMH2O/P) 5 6 Tidal Volume (CC) 550 Inspiratory Pressure (CM H2O P) 16 Chemistry Sodium (137 - 145 mmol/L) 138 Potassium (3.5 - 5.1 mmol/L) 3.3 L Chloride (98 - 107 mmol/L) 101 Carbon Dioxide (22 - 30 mmol/L) 29 Anion Gap (5 - 16) 8 BUN (9 - 20 mg/dL) 10 Creatinine (0.7 - 1.2 mg/dL) 0.4 L Estimated GFR (>60 ml/min) > 60 Glucose (65 - 99 mg/dL) 119 H Lactic Acid (0.7 - 2.1 mmol/L) 1.4 Calcium (8.4 - 10.2 mg/dL) 7.3 L Phosphorus (2.5 - 4.5 mg/dL) 2.0 L Magnesium (1.6 - 2.3 mg/dL) 1.9 Total Bilirubin (0.2 - 1.3 mg/dL) 0.9 AST (17 - 59 U/L) 43 ALT (21 - 72 U/L) 32 Troponin I (<0.11 ng/ml) Pending 0.83 *H Albumin (3.5 - 5.0 g/dL) 2.5 L Miscellaneous Phlebotomy Draw Site RIGHT RADIAL RIGHT RADIAL 02/08 0520 Chemistry Sodium (137 - 145 mmol/L) 136 L Potassium (3.5 - 5.1 mmol/L) 3.0 L Chloride (98 - 107 mmol/L) 101 Carbon Dioxide (22 - 30 mmol/L) 28 Anion Gap (5 - 16) 8 BUN (9 - 20 mg/dL) 10 Creatinine (0.7 - 1.2 mg/dL) 0.5 L Estimated GFR (>60 ml/min) > 60 Glucose (65 - 99 mg/dL) 124 H Calcium (8.4 - 10.2 mg/dL) 7.3 L Phosphorus (2.5 - 4.5 mg/dL) 1.7 L Magnesium (1.6 - 2.3 mg/dL) 1.8 Total Bilirubin (0.2 - 1.3 mg/dL) 0.8 AST (17 - 59 U/L) 34 ALT (21 - 72 U/L) 35 Albumin (3.5 - 5.0 g/dL) 2.4 L Hematology CBC w Diff NO MAN DIFF REQ WBC (4.8 - 10.8 /CUMM) 11.0 H RBC (4.70 - 6.10 /CUMM) 3.19 L Hgb (14.0 - 18.0 G/DL) 8.4 L Hct (42 - 52 %) 26.7 L MCV (80.0 - 94.0 FL) 83.8 MCH (27.0 - 31.0 PG) 26.5 L RDW (11.5 - 14.5 %) 19.5 H Plt Count (130 - 400 /CUMM) 130 MPV (7.4 - 10.4 FL) 9.0 Gran % (42.2 - 75.2 %) 91.6 H Lymphocytes % (20.5 - 51.1 %) 3.1 L Monocytes % (1.7 - 9.3 %) 5.1 Eosinophils % (0 - 5 %) 0.2 Basophils % (0.0 - 2.0 %) 0 L Absolute Granulocytes (1.4 - 6.5 /CUMM) 10.1 H Absolute Lymphocytes (1.2 - 3.4 /CUMM) 0.3 L Absolute Monocytes (0.10 - 0.60 /CUMM) 0.6 Absolute Eosinophils (0.0 - 0.7 /CUMM) 0 Absolute Basophils (0.0 - 0.2 /CUMM) 0 PUBS MCHC (33.0 - 37.0 G/DL) 31.6 L Last 24 Hours of Rahat Results: Blood cultures 2 February 05 negative Urine culture February 05 negative Urine culture February 06 negative Sputum culture February 08 pending Diagnostic Data Recent Imaging Findings: Chest x-ray February 08 reveals bilateral interstitial and alveolar airspace opacities CTA of the chest February 06 revealed interstitial pulmonary edema with small pleural effusions and bibasilar atelectasis with no evidence of pulmonary emboli; liver with lobulated contour suggestive of cirrhosis Assessment/Plan Assessment/Plan Impression: This is a 61-year-old man with a history of alcohol abuse, asthma and recurrent DVT, recently begun on Coumadin in addition to Xarelto, admitted on February 02 with hematemesis and tarry stools, found to be severely anemic, requiring packed RBCs and FFP, with an upper endoscopy negative, with his hospital course complicated by worsening respiratory distress with increased interstitial markings on chest x-ray and CT scan, and now intubated. The etiology of his increased interstitial markings is unclear, but it appears to be most likely related to fluid overload. TRALI has also been considered. Aspiration was considered, and he has been on empiric treatment with Unasyn for 3 days, with no improvement. He did spike a fever 3 days ago, but he has been afebrile since then, likely secondary to the empiric steroids. His white blood cell count was also elevated yesterday, possibly secondary to the steroids, and has normalized. Though a healthcare associated pneumonia is possible I suspect his chest x-ray findings and respiratory failure are noninfectious in etiology. Suggestion: 1. Would obtain a sputum culture 2. Repeat blood cultures 2 3. Discontinue Unasyn 4. Follow off antibiotics pending above, but if his condition deteriorates would begin empiric treatment with Vancomycin and Ceftazidime pending cultures Consult Acknowledgment - Thank you for your consult request.
--- NOTE | 2017-02-08 16:13 | PN- Cardiology ---
Subjective Subjective: * No complaints of chest discomfort today but patient was short of breath. * Currently intubated with bilateral pulmonary edema. * ST elevations noted in anterior and anterolateral leads consistent with injury accompanied by positive cardiac enzymes. * right foot is cold and cool consistent with an arterial occlusion Objective Vital Signs and I&Os Vital Signs Date Time Temp Pulse Resp B/P B/P Pulse O2 O2 Flow FiO2 Mean Ox Delivery Rate 02/08 1340 100 02/08 1200 97.4 89 26 122/70 02/08 1200 95 BIPAP 75% 02/08 1132 91 90 / 1000 97.9 94 26 126/66 / 0841 96 90 05/ 0800 97.9 96 37 132/68 05/ 0800 95 BIPAP 75% 02/08 0800 97.9 96 37 132/68 95 BIPAP 75% 02/08 0800 90 Nasal 100% Cannula 02/08 0750 93 95 02/08 0600 98 32 128/65 / 0558 98 92 02/08 0400 96 27 123/69 02/08 0400 96 BIPAP 75% 02/08 0307 94 91 02/08 0200 98 28 97/70 02/08 0103 101 91 02/08 0000 96.9 98 30 136/76 05/ 0000 92 Nasal 85% Cannula 02/08 0000 96.9 98 30 136/76 92 Nasal 85% Cannula 02/08 0000 92 Nasal 85% Cannula 02/07 2356 97 94 02/07 2148 89 95 02/07 2031 97.6 103 26 120/64 02/07 2031 95 Nasal 85% Cannula 02/07 1925 94 Nasal 85% Cannula 02/07 1615 94 Nasal 80% Cannula Intake & Output 02/08 1600 / 0800 /15 0000 02/07 1600 02/07 0800 02/07 0000 Intake Total 629 210 904 892 200 511 Output Total 830 1360 900 950 325 800 Balance -201 -1150 4 -58 -125 -289 Intake, IV 429 160 304 172 100 111 Intake, Oral 200 50 600 720 100 400 Number 0 0 0 Bowel Movements Output, Urine 830 1360 900 950 325 800 Physical Exam: General: WD/WN male. Intubated and sedated. Heart: RRR w/o murmur Lungs: crackles bilaterally Extremities: no edema, right foot is cool Assessment/Plan Assessment/Plan * This patient has ischemic ST elevations along with an increased troponin in the setting of anemia and respiratory distress. He may have ARDS but I would still strongly consider decompensated congestive heart failure, especially in the setting of his obvious heart disease. Begin Lasix boluses beginning with 80mg IV Q 8 hours and monitor for effective diuresis. Agree with intubation. Begin NTG paste 1/2 inch Q 6 hours. If his BP does not tolerate this medication it may be wiped off. If the patient demonstrates hemodynamic stability after diuresis then begin IV Lopressor at 5mg IV. Begin IV heparin and aspirin and follow his H/H. This patient will need an eventual cardiac catheterization but he is not stable for this procedure at this time. * This patient has shortness of breath that may be due to ARDS verses CHF. Ensure a negative fluid balance. I think a PE is less likely but he is being anticoagulated in any case and has an IVC filter as well. Continue telemetry? Yes
--- NOTE | 2017-02-08 16:56 | ULTRASOUND REPORT ---
EXAMINATION: US DUPLEX LOWER EXTREMITY ARTERY/GRAFT LIMITED, LEFT CLINICAL INFORMATION: No palpable pedal pulse. History of left lower extremity DVT. COMPARISON: Bilateral lower extremity DVT studies 12/01/2016 and 02/03/2017 TECHNIQUE: Grayscale, color and spectral Doppler imaging was obtained of the deep arteries of the left lower extremity. FINDINGS: The left common femoral artery is widely patent but demonstrates abnormal monophasic waveforms. The left profundus artery is also widely patent but demonstrates only monophasic waveforms. Only minimal color and spectral Doppler flow is noted throughout the left superficial femoral artery with velocities of 80 cm/s proximally and only 30 cm/s within the mid and distal left superficial femoral artery. No definitive color or spectral Doppler flow is appreciated within the left popliteal artery. Left anterior and posterior tibial arteries demonstrate only trace color Doppler flow. Trace color/spectral Doppler flow within the left dorsal pedis artery. IMPRESSION: Abnormal examination demonstrating only minimal flow within the left superficial femoral artery and no definitive flow within the left popliteal artery. Calf arteries demonstrate only trace color Doppler flow. This Critical Result was discussed with Dr. Joann Castano at 4:52 PM on 02/08/2017 and it was ascertained that the content and urgency of the report was understood at the time of direct communication.
[2017-02-08 18:53] LABS: ABSOLUTE BASOPHIL COUNT 0 /CUMM (0.0-0.2); ABSOLUTE EOSINOPHIL COUNT 0 /CUMM (0.0-0.7); ABSOLUTE GRANULOCYTE CT 6.3 /CUMM (1.4-6.5); ABSOLUTE LYMPH COUNT 0.4 /CUMM (1.2-3.4); ABSOLUTE MONOCYTE COUNT 0.3 /CUMM (0.10-0.60); BASOPHIL % 0.1 % (0.0-2.0); EOSINOPHIL % 0 % (0-5); HEMATOCRIT 24.6 % (42-52); MEAN CORPUSCULAR HGB 26.4 PG (27.0-31.0); MEAN CORPUSCULAR HGB CONC 31.7 G/DL (33.0-37.0); MEAN CORPUSCULAR VOLUME 83.3 FL (80.0-94.0); MEAN PLATELET VOLUME 8.9 FL (7.4-10.4); PLATELET COUNT 115 /CUMM (130-400); RBC DISTRIBUTION WIDTH 19.3 % (11.5-14.5); RED BLOOD CELL CT 2.96 /CUMM (4.70-6.10); WHITE BLOOD CELL COUNT 7.1 /CUMM (4.8-10.8)
[2017-02-08 19:09] LABS: GRANULOCYTE % 89.9 % (42.2-75.2)
--- NOTE | 2017-02-08 19:20 | Event Note ---
Event Note Event Note: Daughter Rasheeda at bedside around 7:[address] Navid MD and myself discussed current management and issues regarding Mr. Flores's care. All questions and concerns answered. Rasheeda would like to be notified with any change in clinical condition and her number is: .
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
[2017-02-08 21:58] LABS: PTT 49 SEC (25-37)
[2017-02-09] VITALS: BP 112/68
--- NOTE | 2017-02-09 03:19 | PN- Vascular Surgery ---
Subjective Subjective: Pt intubated, sedated. does not respond to verbal commands Objective Vital Signs and I&Os Vital Signs Date Time Temp Pulse Resp B/P B/P Pulse O2 O2 Flow FiO2 Mean Ox Delivery Rate 02/09 0248 60 02/09 0015 60 02/09 0000 95 Ventilator 60% 02/09 0000 97.1 90 26 112/68 95 Ventilator 60% 05/ 2247 60 02/08 2000 95 Ventilator 70% / 1945 70 /15 1800 95 Ventilator 80% /15 1800 98.8 114 36 118/61 95 Ventilator 80% 05/15 1550 80 05/15 1340 100 05/ 1200 97.4 89 26 122/70 05/15 1200 95 BIPAP 75% 15 1132 91 90 / 1000 97.9 94 26 126/66 / 0841 96 90 / 0800 97.9 96 37 132/68 05/ 0800 95 BIPAP 75% /15 0800 97.9 96 37 132/68 95 BIPAP 75% 02/08 0800 90 Nasal 100% Cannula 02/08 0750 93 95 02/08 0600 98 32 128/65 05/ 0558 98 92 / 0400 96 27 123/69 05/ 0400 96 BIPAP 75% Intake & Output 02/09 0800 16 0000 02/08 1600 /15 0800 15 0000 02/07 1600 Intake Total 947 629 210 904 892 Output Total 412 956 7859 900 950 Balance 112 -201 -1150 4 -58 Intake, IV 897 429 160 304 172 Intake, Oral 0 200 50 600 720 Intake, Other 50 Number 0 0 0 Bowel Movements Output, 50 Gastric Drainage Output, Urine 603 963 3936 900 950 Physical Exam: GEN: intubated, sedated CARD: [id number] PULM: coarse throughout, intubated EXT: Right foot palp DP, strong DP signal, warm. LEft foot cold, mottled, no palp pedal pulses, no pedal signals, +popliteal signal. unable to assess motor/ sensation due to sedation. Assessment/Plan Assessment/Plan Critical condition in ICU intubated for resp failure, sedated, with active acute [place], with left lower extremity arterial occlusion, with worsening condition of left foot- now mottled, which was not present yesterday mid-am. PLAN: continue hep gtt stablize per ICU team ?vascular intervention for areterial occlusion if overall condition improves will dw attending Core Measures/Miscellaneous Venous Thromboembolism VTE Risk Factors: Acute medical illness VTE Contraindications: No Contraindications VTE Diagnosis: No VTE Type: NONE VTE Confirmed by (Test): NONE Beta Juan Is Beta Juan a Home Med? No Antibiotics Is Patient on Antibiotics? No
[2017-02-09 05:45] LABS: ABSOLUTE BASOPHIL COUNT 0 /CUMM (0.0-0.2); ABSOLUTE EOSINOPHIL COUNT 0 /CUMM (0.0-0.7); ABSOLUTE GRANULOCYTE CT 5.2 /CUMM (1.4-6.5); ABSOLUTE LYMPH COUNT 0.5 /CUMM (1.2-3.4); ABSOLUTE MONOCYTE COUNT 0.3 /CUMM (0.10-0.60); BASOPHIL % 0.1 % (0.0-2.0); EOSINOPHIL % 0.1 % (0-5); GRANULOCYTE % 87.1 % (42.2-75.2); HEMATOCRIT 24.4 % (42-52); MEAN CORPUSCULAR HGB 26.7 PG (27.0-31.0); MEAN CORPUSCULAR HGB CONC 31.9 G/DL (33.0-37.0); MEAN CORPUSCULAR VOLUME 83.6 FL (80.0-94.0); MEAN PLATELET VOLUME 8.7 FL (7.4-10.4); PLATELET COUNT 114 /CUMM (130-400); RBC DISTRIBUTION WIDTH 19.1 % (11.5-14.5); RED BLOOD CELL CT 2.92 /CUMM (4.70-6.10)
[2017-02-09 05:53] LABS: PT 12.7 SEC (9.4-12.5); PTT 68 SEC (25-37)
--- NOTE | 2017-02-09 06:59 | RADIOLOGY REPORT ---
EXAMINATION: CHEST 1 VIEW CLINICAL INFORMATION: Respiratory failure. COMPARISON: Multiple prior exams are reviewed. The most recent is from 02/08/2017. TECHNIQUE: An AP view of the chest is provided. FINDINGS: An endotracheal tube is in place. The tip is approximately 3 cm above the tin. An enteric tube is in place. The tip cannot be discerned. The cardiac silhouette is obscured due to overlying mixed interstitial and airspace disease. The overlying opacification has progressed since the prior exam with increasing bilateral pleural effusions. The osseous structures are stable. IMPRESSION: Endotracheal tube and enteric tube in place. Interval increase in diffuse mixed interstitial and airspace disease with increasing bilateral pleural effusions.
--- NOTE | 2017-02-09 07:02 | PN- Resident CRCU ---
Subjective HPI/CRCU Issues: Patient seen and examined at bedside this AM. He was noted to have interval worsening of his left lower extremity coolness and interval appearance of mottling of the skin. This concern was mentioned to vascular who scheduled emergent operation in the OR for this morning. Family was made aware of this condition and will be notified upon his return from the OR. Patient was also noted to have only 735 cc net negative fluid balance despite diuresis with IV lasix 80 Q8. 24 Hour Events: Vital signs over the last 24 hours: T 97.1-99.1, HR 80-115, RR 37-26, BP 93-154/57-87, O2 91-96% on BiPAP transitioned to AV ventilation RR 26, VT 550, GiO2 60% and PEEP 5. Total intake last 24 hours: 685 cc Total output: 1420 cc Objective Vital Signs & I&O Last 8 Hrs of Vitals and I&O: T 97.1-99.1, HR 80-115, RR 37-26, BP 93-154/57-87, O2 91-96% on BiPAP transitioned to AV ventilation RR 26, VT 550, GiO2 60% and PEEP 5. Exam General Appearance: well developed/nourished, sedated, intubated Head: atraumatic, normal appearance Ears, Nose, Throat: normal pharynx Neck: normal inspection, No JVD Respiratory: Intubated, bilateral wheezing and crackles Cardiovascular: regular rate/rhythm Gastrointestinal: normal bowel sounds, soft, non-tender Extremities: Left foot mottling with LLE cool/slightly dusky below the knee. Non -palpable pedal pulses bilaterall Cranial Nerves: NO facial asymmetry, PERRL Skin: intact, As noted above. Nutrition Nutrition: NPO Current Medications: Current Medications Sig/Lillie Start time Last Medication Dose Route Stop Time Status Admin Acetaminophen 650 MG Q6P PRN 02/03 2000 AC 02/07 PO 1136 Acetaminophen 1,000 MG Q6P PRN 02/03 2000 AC IV Albuterol Sulfate 3 ML EVERY 4 HRS/AWAKE 02/07 1200 AC 02/09 INH 0830 Albuterol Sulfate 2 PUF Q4-6 PRN PRN 02/03 0645 AC 02/04 INH 2320 Ampicillin Sodium/ 1,500 MG Q6H 02/06 2100 DC 02/08 Sulbactam Sodium IV 0920 Sodium Chloride 100 ML Aspirin 81 MG DAILY 02/08 1609 AC 05 PO 1728 Benzonatate 100 MG TID 02/05 1745 DC 05 PO 1045 Budesonide/ 2 PUF BID 02/03 1000 AC 02/08 Formoterol Fumarate INH 1045 Folic Acid 1 MG DAILY 02/07 1000 AC 05 PO 1045 Furosemide 80 MG Q8 02/09 0730 AC 02/09 IV 0854 Furosemide 80 MG ONCE ONE 02/08 2330 DC 02/09 IV PUSH 02/08 2331 0020 Furosemide 80 MG .STK-MED ONE 02/08 1554 DC IV 02/08 1555 Furosemide 80 MG ONCE ONE 02/08 1545 DC 02/08 IV PUSH 02/08 1546 1600 Furosemide 100 MG Q20H 02/07 1230 DC 05 Sodium Chloride 100 ML IV 0204 Gabapentin 300 MG Q8 02/03 0620 AC 02/09 PO 0619 Heparin Sodium 5,000 UNIT .STK-MED ONE 02/08 2311 DC (Porcine) IV 02/08 2312 Heparin Sodium 3,500 UNIT BOLUS ONE 02/08 2300 DC 02/08 (Porcine) IV 02/08 2301 2300 Heparin Sodium 25,000 UNIT Q24H 02/08 1330 AC 02/09 (Porcine) IV 0908 Sodium Chloride 500 ML Lorazepam 50 MG Q12H 02/09 0600 AC 02/09 Dextrose/Water 500 ML IV 1017 Lorazepam 50 MG Q24H 02/08 1615 DC 05 Dextrose/Water 500 ML IV 02/09 0600 1726 Lorazepam 2 MG 1400 02/08 1400 DC 05 IV 02/08 1401 1356 Magnesium Oxide 400 MG BID 02/06 1000 AC 02/08 PO 2144 Methylprednisolone 40 MG Q6 02/05 2359 AC 02/09 IV 0618 Multivitamins 1 TAB DAILY 02/07 1000 AC 02/08 PO 1045 Nitroglycerin 0.5 GM Q6 02/08 1800 AC 02/09 TOP 0618 Non-Formulary 0 SEE ADMIN CRITERIA 02/08 1345 CAN Medication ANY Omeprazole 20 MG BID 02/06 2200 DC 05 PO 1045 Pantoprazole Sodium 40 MG DAILY 02/09 1000 AC 02/09 IV 0912 Pantoprazole Sodium 40 MG DAILY 02/08 1330 DC IV Phosphate 250 MG PC AND AT BEDTIME 02/08 1800 AC 05/15 PO 02/09 1301 2144 Potassium Chloride 10 MEQ Q1H 02/09 1015 DC / IV 02/09 1116 1018 Potassium Chloride 40 MEQ DAILY 02/09 1000 AC PO Potassium Chloride 40 MEQ ONCE ONE 02/09 0700 DC / PO 02/09 0701 0854 Potassium Chloride 10 MEQ Q1H 02/08 1415 DC 05/15 IV 02/08 1616 1835 Potassium Chloride 40 MEQ DAILY 02/08 1000 DC 05/ PO 1045 Pravastatin Sodium 40 MG 1700 05/ 1700 AC 05 PO 1724 Propofol 1,000 MG .STK-MED ONE 02/08 1358 DC IV 02/08 1359 Propofol 1,000 MG Q24H 02/08 1345 CAN N/A 100 ML IV Propofol 1,000 MG Q24H 02/08 1345 AC 16 N/A 100 ML IV 0907 Sodium Phosphate 15 mMol ONE ONE 02/08 0715 DC 02/08 Sodium Chloride 250 ML IV 02/08 1118 0955 Thiamine HCl 50 MG DAILY 02/07 1000 AC 05/ PO 1045 Tiotropium [place] 1 PUF DAILY 02/05 1208 AC 02/08 INH 1045 CXR Findings: IMPRESSION: Endotracheal tube and enteric tube in place. Interval increase in diffuse mixed interstitial and airspace disease with increasing bilateral pleural effusions. CT Scan Findings: Chest CTA: IMPRESSION: 1. Severe atherosclerotic disease of the coronary arteries. Also, there is atherosclerotic disease of the thoracic aorta and major branch vessels (e.g. subclavian arteries) without aneurysm. 2. Interstitial pulmonary edema, small pleural effusions and bibasilar atelectasis. 3. No evidence of pulmonary embolism. 4. Liver has lobulated contour, suggestive of cirrhosis. Recommend correlation with liver function tests. ECHO Findings: CONCLUSIONS 1. Normal EF of 60%. 2. Trace mitral regurgitation. 3. Mild to moderate tricuspid regurgitation. 4. Moderate pulmonary hypertension. US Findings: LLE doppler: IMPRESSION: Abnormal examination demonstrating only minimal flow within the left superficial femoral artery and no definitive flow within the left popliteal artery. Calf arteries demonstrate only trace color Doppler flow. Impression/Plan Impression/Problem List Impression: Mr. Flores is a pleasant 61 year old male with PMH asthma, dyslipidemia, alcohol abuse, previous alcohol withdrawl seizure, and DVT x 2 (August 2016) currently on coumadin who presented with chief complaint of several episodes of coffe-ground emesis and dark, tarry stools without overt blood/ clots. Associated symptoms at time of presentation included easy bleeding/ brusing of his extremities and dyspnea on exertion. Of note, patient was started on anticoagulation with his second episode of DVT in August of 2016. He was inadvertently placed on both xarelto by his PCP and Coumadin by Dr. De Santiago, vascular surgery, until 1-2 weeks later when this was noted and his PCP discontinued Xarelto. In the ED: Vital signs showed a Tmax of 994. HR 117, RR 22, BP 99/54 and O2 saturation of 99% on room air. Labs were significant for H&H 5.3/16.7, Plt 259, Na 131, K 4.1, HCO3 16, Cre 0.6 , Ca 8, Albumin 2.5, INR >10. EKG showed sinus tachycardia and no significant ST/T wave changes. Patient is currently admitted to the ICU and the following is the management: 1. Acute blood loss anemia secondary to GI bleed in the setting of supratherapeutic INR * GI consult placed and appreciated * Continue to hold coumadin, no further bleeding has been noted * Patient is s/p EGD which was grossly normal, no active bleeding * Patient will require colonoscopy likely as an outpatient after discharge * CBC now stable after 4 units prbcs total, will transfuse one more unit today as H&H 7.8/24.2 and patient is scheduled for the OR this AM * INR now subtherapeutic after 4 units FFP, patient s/p IVC filter placement with IR * Patient started on heparin drip due to concerns for ST changes * IV protonix daily * Strict Is/Os 2. Elevated troponins * Troponins peaked at 4.[address] elevations, cardiology aware * Heparin drip continued * Cardio consult placed and appreciated, follow recomendations * NTG paste 1/2 inch Q6h started; add IV lopressor 5 mg IV if BP tolerates * Begin aspirin, continue statin * Echocardiogram shows normal EF at 60%, trace MR, mild-mod TR, moderate pulm HTN * Patient will likely require treadmill nuclear stress test as an outpatient 3. Alcohol abuse * CIWA scoring discontinued as patient only scoring 0 4. History of DVT with non-palpable pedal pulses * Bilateral lower extremity venous dopplers shows extensive lef lower extremity near occlusive DVT, no RLE DVT * Hold coumadin due to acute blood loss anemia; Patient now s/p IVC filter placement, continue heparin * Vascular sugery evaluation today appreciated, will take patient to OR for ? evacuation of clot?, follow up post-op note * GI amenable to restarting anticoagulation in setting of [place] and worsening LLE clot 5. Acute respiratory distress in setting of likely underlying COPD * Consideration for fluid overload in the setting of frequent transfusions * ID consult appreciated, recommends watching off antibiotics and following up repeat blood cultures * If patient deteriorates, will cover empirically with IV vanco and ceftaz * Patient s/p intubation yesterday 2/2 PaO2 to FiO2 ratio of 80 and noted respiratory distress * IV lasix drip discontinued in favor of IV lasix boluses 80 mg Q8 as recommended by cardio; aggressive diuresis to maintain negative fluid balance * Change vent settings to RR 18 bpm, titrate down FiO2 to maintain sat >92% * Of note, echo also shows moderate pulmonary HTN 6. Chronic pain * Continue neurontin 300 mg PO Q8 * PO tylenol for mild pain, IV tylenol for moderate pain FULL CODE DVTP: ALPS Heart healthy diet Mild-moderate pain pathway Problem List: 1. Asthma 2. ETOH ABUSE 3. DVT (deep venous thrombosis) 4. GI bleed Pain Ratin Tomorrow's Labs & Rationales: CBC (blood loss anemia) ICU bundle (hypokalemia) Plan DVT/Prophylaxis: mechanical (no pharm 2/2 acute blood loss)
[2017-02-09 08:00] VITALS: BP 118/68
--- NOTE | 2017-02-09 08:46 | PN- CRCU ---
Subjective HPI/Critical Care Issues: The patient is intubated and sedated on mechanical ventilation. His oxygen requirements have improved, noting that he is now on 60% with 5 of PEEP. The patient's MAXIMUM TEMPERATURE was 99.1. He remains on propofol and Ativan for sedation. He has not had significant negative fluid balance despite 80 mg of Lasix 3 times daily. Additionally, the patient's left lower extremity is now cold to touch, with absent pulses. Objective Current Medications: Current Medications Sig/Lillie Start time Last Medication Dose Route Stop Time Status Admin Acetaminophen 650 MG Q6P PRN 02/03 2000 AC 02/07 PO 1136 Acetaminophen 1,000 MG Q6P PRN 02/03 2000 AC IV Albuterol Sulfate 3 ML EVERY 4 HRS/AWAKE 02/07 1200 AC 02/08 INH 2149 Albuterol Sulfate 2 PUF Q4-6 PRN PRN 02/03 0645 AC 02/04 INH 2320 Ampicillin Sodium/ 1,500 MG Q6H 02/06 2100 DC 02/08 Sulbactam Sodium IV 0920 Sodium Chloride 100 ML Aspirin 81 MG DAILY 02/08 1609 AC 02/08 PO 1728 Benzonatate 100 MG TID 02/05 1745 DC 02/08 PO 1045 Budesonide/ 2 PUF BID 02/03 1000 AC 02/08 Formoterol Fumarate INH 1045 Folic Acid 1 MG DAILY 02/07 1000 AC 02/08 PO 1045 Furosemide 80 MG Q8 02/09 0730 AC IV Furosemide 80 MG ONCE ONE 02/08 2330 DC 02/09 IV PUSH 02/08 2331 0020 Furosemide 80 MG .STK-MED ONE 02/08 1554 DC IV 02/08 1555 Furosemide 80 MG ONCE ONE 02/08 1545 DC 02/08 IV PUSH 02/08 1546 1600 Furosemide 100 MG Q20H 02/07 1230 DC 02/08 Sodium Chloride 100 ML IV 0204 Gabapentin 300 MG Q8 02/03 0620 AC 02/09 PO 0619 Heparin Sodium 5,000 UNIT .STK-MED ONE 02/08 2311 DC (Porcine) IV 02/08 2312 Heparin Sodium 3,500 UNIT BOLUS ONE 02/08 2300 DC 02/08 (Porcine) IV 02/08 2301 2300 Heparin Sodium 25,000 UNIT Q24H 02/08 1330 AC 02/08 (Porcine) IV 1500 Sodium Chloride 500 ML Lorazepam 50 MG Q12H 02/09 0600 AC Dextrose/Water 500 ML IV Lorazepam 50 MG Q24H 02/08 1615 DC 02/08 Dextrose/Water 500 ML IV 02/09 0600 1726 Lorazepam 2 MG 1400 02/08 1400 DC 05/15 IV 02/08 1401 1356 Magnesium Oxide 400 MG BID 02/06 1000 AC 02/08 PO 2144 Methylprednisolone 40 MG Q6 02/05 2359 AC 02/09 IV 0618 Multivitamins 1 TAB DAILY 02/07 1000 AC 02/08 PO 1045 Nitroglycerin 0.5 GM Q6 02/08 1800 AC 02/09 TOP 0618 Non-Formulary 0 SEE ADMIN CRITERIA 02/08 1345 CAN Medication ANY Omeprazole 20 MG BID 02/06 2200 DC 02/08 PO 1045 Pantoprazole Sodium 40 MG DAILY 02/09 1000 AC IV Pantoprazole Sodium 40 MG DAILY 02/08 1330 DC IV Phosphate 250 MG PC AND AT BEDTIME 02/08 1800 AC 02/08 PO 02/09 1301 2144 Potassium Chloride 40 MEQ DAILY 02/09 1000 AC PO Potassium Chloride 40 MEQ ONCE ONE 02/09 0700 DC PO 02/09 0701 Potassium Chloride 10 MEQ Q1H 02/08 1415 DC 02/08 IV 02/08 1616 1835 Potassium Chloride 40 MEQ DAILY 02/08 1000 DC 02/08 PO 1045 Pravastatin Sodium 40 MG 1700 02/04 1700 AC 02/08 PO 1724 Propofol 1,000 MG .STK-MED ONE 02/08 1358 DC IV 02/08 1359 Propofol 1,000 MG Q24H 02/08 1345 CAN N/A 100 ML IV Propofol 1,000 MG Q24H 02/08 1345 AC 02/09 N/A 100 ML IV 0305 Sodium Phosphate 15 mMol ONE ONE 02/08 0715 DC 02/08 Sodium Chloride 250 ML IV 02/08 1118 0955 Thiamine HCl 50 MG DAILY 02/07 1000 AC 02/08 PO 1045 Tiotropium [place] 1 PUF DAILY 02/05 1208 AC 02/08 INH 1045 Vital Signs & I&O Last 24 Hrs of Vitals and I&O: Vital Signs Date Time Temp Pulse Resp B/P B/P Pulse O2 O2 Flow FiO2 Mean Ox Delivery Rate 02/09 0750 60 02/09 0606 60 02/09 0353 95 Ventilator 60% 02/09 0248 60 02/09 0015 60 / 0000 95 Ventilator 60% 02/09 0000 97.1 90 26 112/68 95 Ventilator 60% 02/08 2247 60 02/08 2000 95 Ventilator 70% / 1945 70 02/08 1800 95 Ventilator 80% / 1800 98.8 114 36 118/61 95 Ventilator 80% 02/08 1550 80 02/08 1340 100 05 1200 97.4 89 26 122/70 02/08 1200 95 BIPAP 75% 02/08 1132 91 90 / 1000 97.9 94 26 126/66 02/08 0841 96 90 Intake & Output 02/09 1600 02/09 0800 05 0000 Intake Total 685 947 Output Total 1420 835 Balance -735 112 Intake, IV 635 897 Intake, Oral 0 Intake, Other 50 50 Output, 100 50 Gastric Drainage Output, Urine 1320 785 Exam General Appearance: intubated and sedated, comfortable Head: atraumatic, normal appearance Neck: supple Respiratory: bilateral wheezing and crackles scattered throughout, lungs expand symmetrically Cardiovascular: regular rate/rhythm Abdomen: normal bowel sounds, soft, non-tender Extremities: right lower extremity Skin: intact, normal color, warm/dry Results Last 24 Hrs of Lab Results: Laboratory Tests 02/09/17 0730: Troponin I Cancelled 02/09/17 0705: Troponin I Pending 02/09/17 0600: pH 7.51 H, pCO2 37, pO2 72 L, HCO3 28, ABG O2 Sat (Measured) 95.0 L, P-50 ( Temp Corrected) N, Carboxyhemoglobin 0.9 L, O2 Concentration % .60, Respiration Rate 26, O2 Delivery Method VENT, Vent Mode A/C, Expiratory Pressure 5, Tidal Volume 550, Phlebotomy Draw Site RIGHT RADIAL 02/09/17 0505: Anion Gap 6, Estimated GFR > 60, Glucose 152 H, Calcium 7.4 L, Phosphorus 1.9 L, Magnesium 2.2, Total Bilirubin 0.8, AST 56, ALT 47, Albumin 2.4 L, PT 12.7 H, INR 1.21 H, APTT 68 H, CBC w Diff MAN DIFF ORDERED, RBC 2.92 L, MCV 83.6, MCH 26.7 L, RDW 19.1 H, MPV 8.7, Gran % 87.1 H, Lymphocytes % 7.6 L, Monocytes % 5.1, Eosinophils % 0.1, Basophils % 0.1, Absolute Granulocytes 5.2, Absolute Lymphocytes 0.5 L, Absolute Monocytes 0.3, Absolute Eosinophils 0, Absolute Basophils 0, Platelet Estimate DECREASED, Polychromasia 1+, Hypochromic -Microcytic 1+, PUBS MCHC 31.9 L 02/09/17 0130: Troponin I 4.88 *H 02/08/17 2200: Sodium Cancelled, Potassium Cancelled, Chloride Cancelled, Carbon Dioxide Cancelled, Anion Gap Cancelled, BUN Cancelled, Creatinine Cancelled, Glucose Cancelled, Calcium Cancelled, Phosphorus Cancelled, Magnesium Cancelled, Total Bilirubin Cancelled, AST Cancelled, ALT Cancelled, Albumin Cancelled 02/08/17 2100: APTT 49 H 02/08/17 1820: Anion Gap 5, Estimated GFR > 60, Glucose 134 H, Calcium 7.1 L, Phosphorus 1.8 L, Magnesium 2.0, Total Bilirubin 0.8, AST 49, ALT 34, Troponin I 2.18 *H, Albumin 2.3 L, CBC w Diff NO MAN DIFF REQ, RBC 2.96 L, MCV 83.3, MCH 26.4 L, RDW 19.3 H, MPV 8.9, Gran % 89.9 H, Lymphocytes % 5.2 L, Monocytes % 4.8, Eosinophils % 0, Basophils % 0.1, Absolute Granulocytes 6.3, Absolute Lymphocytes 0.4 L, Absolute Monocytes 0.3, Absolute Eosinophils 0, Absolute Basophils 0, PUBS MCHC 31.7 L 02/08/17 1436: pH 7.34 L, pCO2 51 H, pO2 145 H, HCO3 27, ABG O2 Sat (Measured) 99.0, P-50 ( Temp Corrected) YES, Carboxyhemoglobin 0.8 L, O2 Concentration % 100%, Temperature 97.4, Respiration Rate 26, O2 Delivery Method VENT, Vent Mode AC, Expiratory Pressure 5, Tidal Volume 550, Phlebotomy Draw Site RIGHT RADIAL 02/08/17 1300: Lactic Acid 1.4 02/08/17 1300: Anion Gap 8, Estimated GFR > 60, Glucose 119 H, Calcium 7.3 L, Phosphorus 2.0 L, Magnesium 1.9, Total Bilirubin 0.9, AST 43, ALT 32, Troponin I 0.83 *H, Albumin 2.5 L 02/08/17 1242: pH 7.49 H, pCO2 37, pO2 60 L, HCO3 27, ABG O2 Sat (Measured) 93.0 L, P-50 ( Temp Corrected) YES, Carboxyhemoglobin 0.7 L, O2 Concentration % 75%, Temperature 97.4, Respiration Rate 20, O2 Delivery Method BIPAP, Vent Mode ST, Expiratory Pressure 6, Inspiratory Pressure 16, Phlebotomy Draw Site RIGHT RADIAL Impression/Plan Impression/Plan Impression/Plan: 1. Acute blood loss anemia, resolved. 2. Acute hypoxemic respiratory failure likely secondary to volume overload in the setting of multiple transfusions and IV fluid resuscitation. TRALI and ARDS are also within the differential diagnosis. 3. COPD with mild bronchospasm. 4. Electrolyte abnormalities. 5. Positive troponin. 6. EtOH abuse. No significant evidence of withdrawal. 7. Recurrent lower extremity DVTs, status post IVC filter. 8. Increased leukocytosis in the setting of IV steroids. 9. Left lower extremity arterial occlusion - will need intervention. 10. Acute OH. Recommendations: * VENT: decrease RR to 18 breaths per minute. * Titrate oxygen down for sats greater than 92%. * Continue with diuresis as recommended by cardiology. * Monitor electrolytes every 12 hours today, and aggressively replete. * Continue TRC for nebulizer treatments. Continue Symbicort. * Solu-Medrol 40 mg IV every 6 hours. * Follow off antibiotics per ID. * Follow up culture results. * Monitor on EtOH withdrawal precautions. * Continue MVI/thiamine/folate. * Continue IV Heparin. * IV Protonix. * Continue Vent bundle. * I discussed the arterial occlusion with vascular surgery and cardiology. At the present time, it is felt that this new finding is an acute medical emergency and the patient needs to proceed to the operating room. From my perspective, the patient's respiratory status has improved however is not optimized. He is at high risk for oxygen desaturation, and pulmonary complications. He obviously is also at increased risk for complications due to his recent OH, occluding cardiac arrest. Because of the acute finding, the general feeling is the potential benefit of alleviating the occlusion outweighs the risks at this point. Vascular surgery will be discussing this with the patient's family, including the significant perioperative risks.
--- NOTE | 2017-02-09 09:00 | PN- Cardiology ---
Subjective Subjective: * Patient is intubated and sedated. * Ischemic left foot. * sinus rhythm with resolution of ST elevations * Increased cardiac troponin * potassium 3.3 Objective Vital Signs and I&Os Vital Signs Date Time Temp Pulse Resp B/P B/P Pulse O2 O2 Flow FiO2 Mean Ox Delivery Rate 02/09 0750 60 / 0606 60 02/09 0353 95 Ventilator 60% 02/09 0248 60 /16 0015 60 / 0000 95 Ventilator 60% 05/16 0000 97.1 90 26 112/68 95 Ventilator 60% 05/ 2247 60 02/08 2000 95 Ventilator 70% 02/08 1945 70 /15 1800 95 Ventilator 80% /15 1800 98.8 114 36 118/61 95 Ventilator 80% 02/08 1550 80 02/08 1340 100 02/08 1200 97.4 89 26 122/70 02/08 1200 95 BIPAP 75% 02/08 1132 91 90 / 1000 97.9 94 26 126/66 Intake & Output 02/09 1600 02/09 0800 02/09 0000 02/08 1600 02/08 0800 02/08 0000 Intake Total 685 947 629 210 904 Output Total 1420 196 987 9048 900 Balance -735 112 -201 -1150 4 Intake, IV 635 897 429 160 304 Intake, Oral 0 200 50 600 Intake, Other 50 50 Number 0 0 Bowel Movements Output, 100 50 Gastric Drainage Output, Urine 1320 738 553 1370 900 Physical Exam: General: WD/WN male. Intubated and sedated. Heart: RRR w/o murmur Lungs: crackles bilaterally Extremities: no edema, right foot is cool Assessment/Plan Assessment/Plan * This patient has an improved ECG today although his cardiac enzymes trended up indicative of a recent OR. The patient has an ischemic left foot with arterial occlusion which is a medical emergency. As such, surgery is appropriate although at increased risk. The patient should have his potassium repleted. Please give 40meq PO and 10 IV prior to going to the OR. Follow cardiac enzymes. * Transfuse 1 unit pRBC's. * After return from the OR I would continue to diurese with a goal of running a negative fluid balance. Administer Lasix as necessary to acheive that goal. Lasix boluses beginning with 80mg IV Q 8 hours and monitor for effective diuresis. Continue NTG paste 1/2 inch Q 6 hours. If his BP does not tolerate this medication it may be wiped off. If the patient demonstrates hemodynamic stability after diuresis then begin IV Lopressor at 5mg IV. Begin IV heparin and aspirin and follow his H/H. This patient will need an eventual cardiac catheterization but he is not stable for this procedure at this time. * This patient has shortness of breath that may be due to ARDS verses CHF. Ensure a negative fluid balance. I think a PE is less likely but he is being anticoagulated in any case and has an IVC filter as well. Continue telemetry? Yes
--- NOTE | 2017-02-09 11:56 | NUR ---
PT REMAINS INTUBATED AND SEDATED WITH ATIVAN AND PROPOFOL. SAS 3. SUCTIONED FREQUENTLY VIA ETT FOR LARGE AMOUNTS OF WHITE THICK SECRETIONS. SHEARER PATENT, IV LASIX GIVEN WITH MODERATE RESPONSE. LEFT FOOT IS DUSKY WITH NO PALPABLE OR DOPPLAR PULSES. VASCULAR SURGEON IN TO SEE PT. REMAINS ON IV HEPARIN DRIP. KCL GIVEN BOTH VIA OGT AND IV ORDERED. DR. ORTIZ IN PT WAS TRANSFERRED TO OR ON [facility], BAGGED BY RT, LIBRARY MEDIA TECHNICIAN MONITORING PT. REPORT GIVEN TO ANESTHESIA.
--- NOTE | 2017-02-09 13:59 | PN- Infect Dx ---
Subjective Subjective: He remains afebrile on steroids. His oxygen requirements have decreased to some extent. His left foot has remained cold, and he is scheduled for surgery later today for possible thrombectomy/angioplasty. Objective Last 24 Hrs of Vital Signs/I&O Vital Signs Date Time Temp Pulse Resp B/P B/P Pulse O2 O2 Flow FiO2 Mean Ox Delivery Rate 02/09 1015 55 02/09 0800 98 Ventilator 60% 02/09 0800 98.7 84 26 118/68 97 Ventilator 60% 02/09 0750 60 02/09 0606 60 02/09 0353 95 Ventilator 60% 02/09 0248 60 02/09 0015 60 02/09 0000 95 Ventilator 60% 02/09 0000 97.1 90 26 112/68 95 Ventilator 60% 02/08 2247 60 02/08 2000 95 Ventilator 70% 02/08 1945 70 02/08 1800 95 Ventilator 80% 02/08 1800 98.8 114 36 118/61 95 Ventilator 80% 02/08 1550 80 Intake & Output 02/09 1600 02/09 0800 05 0000 Intake Total 685 947 Output Total 1420 835 Balance -735 112 Intake, IV 635 897 Intake, Oral 0 Intake, Other 50 50 Output, 100 50 Gastric Drainage Output, Urine 1320 785 Physical Exam Other Physical Findings: He is sedated/unresponsive on the ventilator Lungs bilateral rhonchi Heart regular rhythm with no murmur Abdomen is soft, nontender with positive bowel sounds Extremities left foot cool, with no pulse palpable Meyer catheter remains in place Results Last 24 Hours of Lab Results: Laboratory Tests 02/09 02/09 02/09 02/09 1220 0730 0705 0600 Blood Gas pH (7.35 - 7.45 PH) 7.36 7.51 H pCO2 (35 - 45 TORR) 49 H 37 pO2 (80 - 100 TORR) 250 H 72 L HCO3 (21 - 28 MEQ/L) 27 28 ABG O2 Sat (Measured) (>96.0 %) 99.0 95.0 L P-50 (Temp Corrected) N N Carboxyhemoglobin (1.5 - 5.0 %) 1.3 L 0.9 L O2 Concentration % 100% .60 Respiration Rate (BPM) 26 O2 Delivery Method OR VENT VENT Vent Mode A/C Expiratory Pressure (CMH2O/P) 5 Tidal Volume (CC) 550 Chemistry Troponin I (<0.11 ng/ml) Cancelled 4.87 *H Miscellaneous Phlebotomy Draw Site A-LINE RIGHT RADIAL 02/09 02/09 02/08 0505 0130 2200 Chemistry Sodium (137 - 145 mmol/L) 138 Cancelled Potassium (3.5 - 5.1 mmol/L) 3.3 L Cancelled Chloride (98 - 107 mmol/L) 102 Cancelled Carbon Dioxide (22 - 30 mmol/L) 30 Cancelled Anion Gap (5 - 16) 6 Cancelled BUN (9 - 20 mg/dL) 13 Cancelled Creatinine (0.7 - 1.2 mg/dL) 0.4 L Cancelled Estimated GFR (>60 ml/min) > 60 Glucose (65 - 99 mg/dL) 152 H Cancelled Calcium (8.4 - 10.2 mg/dL) 7.4 L Cancelled Phosphorus (2.5 - 4.5 mg/dL) 1.9 L Cancelled Magnesium (1.6 - 2.3 mg/dL) 2.2 Cancelled Total Bilirubin (0.2 - 1.3 mg/dL) 0.8 Cancelled AST (17 - 59 U/L) 56 Cancelled ALT (21 - 72 U/L) 47 Cancelled Troponin I (<0.11 ng/ml) 4.88 *H Albumin (3.5 - 5.0 g/dL) 2.4 L Cancelled Coagulation PT (9.4 - 12.5 SEC) 12.7 H INR (0.90 - 1.17) 1.21 H APTT (25 - 37 SEC) 68 H Hematology CBC w Diff MAN DIFF ORDERED WBC (4.8 - 10.8 /CUMM) 6.0 RBC (4.70 - 6.10 /CUMM) 2.92 L Hgb (14.0 - 18.0 G/DL) 7.8 L Hct (42 - 52 %) 24.4 L MCV (80.0 - 94.0 FL) 83.6 MCH (27.0 - 31.0 PG) 26.7 L RDW (11.5 - 14.5 %) 19.1 H Plt Count (130 - 400 /CUMM) 114 L MPV (7.4 - 10.4 FL) 8.7 Gran % (42.2 - 75.2 %) 87.1 H Lymphocytes % (20.5 - 51.1 %) 7.6 L Monocytes % (1.7 - 9.3 %) 5.1 Eosinophils % (0 - 5 %) 0.1 Basophils % (0.0 - 2.0 %) 0.1 Absolute Granulocytes (1.4 - 6.5 /CUMM) 5.2 Absolute Lymphocytes (1.2 - 3.4 /CUMM) 0.5 L Absolute Monocytes (0.10 - 0.60 /CUMM) 0.3 Absolute Eosinophils (0.0 - 0.7 /CUMM) 0 Absolute Basophils (0.0 - 0.2 /CUMM) 0 Platelet Estimate (ADEQUATE) DECREASED Polychromasia 1+ Hypochromic-Microcytic 1+ PUBS MCHC (33.0 - 37.0 G/DL) 31.9 L 02/08 02/08 02/08 2100 1820 1436 Blood Gas pH (7.35 - 7.45 PH) 7.34 L pCO2 (35 - 45 TORR) 51 H pO2 (80 - 100 TORR) 145 H HCO3 (21 - 28 MEQ/L) 27 ABG O2 Sat (Measured) (>96.0 %) 99.0 P-50 (Temp Corrected) YES Carboxyhemoglobin (1.5 - 5.0 %) 0.8 L O2 Concentration % 100% Temperature (97.0 - 100.0 FARH) 97.4 Respiration Rate (BPM) 26 O2 Delivery Method VENT Vent Mode AC Expiratory Pressure (CMH2O/P) 5 Tidal Volume (CC) 550 Chemistry Sodium (137 - 145 mmol/L) 138 Potassium (3.5 - 5.1 mmol/L) 3.8 Chloride (98 - 107 mmol/L) 102 Carbon Dioxide (22 - 30 mmol/L) 31 H Anion Gap (5 - 16) 5 BUN (9 - 20 mg/dL) 12 Creatinine (0.7 - 1.2 mg/dL) 0.4 L Estimated GFR (>60 ml/min) > 60 Glucose (65 - 99 mg/dL) 134 H Calcium (8.4 - 10.2 mg/dL) 7.1 L Phosphorus (2.5 - 4.5 mg/dL) 1.8 L Magnesium (1.6 - 2.3 mg/dL) 2.0 Total Bilirubin (0.2 - 1.3 mg/dL) 0.8 AST (17 - 59 U/L) 49 ALT (21 - 72 U/L) 34 Troponin I (<0.11 ng/ml) 2.18 *H Albumin (3.5 - 5.0 g/dL) 2.3 L Coagulation APTT (25 - 37 SEC) 49 H Hematology CBC w Diff NO MAN DIFF REQ WBC (4.8 - 10.8 /CUMM) 7.1 RBC (4.70 - 6.10 /CUMM) 2.96 L Hgb (14.0 - 18.0 G/DL) 7.8 L Hct (42 - 52 %) 24.6 L MCV (80.0 - 94.0 FL) 83.3 MCH (27.0 - 31.0 PG) 26.4 L RDW (11.5 - 14.5 %) 19.3 H Plt Count (130 - 400 /CUMM) 115 L MPV (7.4 - 10.4 FL) 8.9 Gran % (42.2 - 75.2 %) 89.9 H Lymphocytes % (20.5 - 51.1 %) 5.2 L Monocytes % (1.7 - 9.3 %) 4.8 Eosinophils % (0 - 5 %) 0 Basophils % (0.0 - 2.0 %) 0.1 Absolute Granulocytes (1.4 - 6.5 /CUMM) 6.3 Absolute Lymphocytes (1.2 - 3.4 /CUMM) 0.4 L Absolute Monocytes (0.10 - 0.60 /CUMM) 0.3 Absolute Eosinophils (0.0 - 0.7 /CUMM) 0 Absolute Basophils (0.0 - 0.2 /CUMM) 0 PUBS MCHC (33.0 - 37.0 G/DL) 31.7 L Miscellaneous Phlebotomy Draw Site RIGHT RADIAL Last 24 Hours of Rahat Results: Blood cultures 2 February 08 negative Sputum culture February 08 light growth of mixed francisco Recent Imaging Studies: Chest x-ray February 09, personally reviewed, reveals an interval increase in diffuse mixed interstitial and airspace disease with increasing bilateral pleural effusions Arterial Doppler left leg February 08 reveals only minimal flow within the left superficial femoral artery and no definitive flow within the left popliteal artery Assessment/Plan Impression: Overall status poor with respiratory failure of unclear etiology, with chest x- ray revealing an increase in diffuse mixed interstitial and airspace disease, suggestive of either fluid overload or ARDS. His temperatures and white blood cell count remain normal (on steroids) and his recent cultures are negative, making an infectious etiology less likely, and he remains off antibiotics. His cool left foot suggests an embolic or thrombotic process, with the arterial Doppler results noted, presumably related to his recent CA, with his markedly elevated troponins, and he is scheduled for vascular surgery intervention in the OR later today. Suggestion: 1. Follow-up recent cultures 2. Await vascular surgery intervention 3. Continue to follow off antibiotics pending above
[2017-02-09 14:13] LABS: ABSOLUTE BASOPHIL COUNT 0.1 /CUMM (0.0-0.2); ABSOLUTE EOSINOPHIL COUNT 0 /CUMM (0.0-0.7); ABSOLUTE GRANULOCYTE CT 6.8 /CUMM (1.4-6.5); ABSOLUTE LYMPH COUNT 0.5 /CUMM (1.2-3.4); ABSOLUTE MONOCYTE COUNT 0.3 /CUMM (0.10-0.60); BASOPHIL % 1.1 % (0.0-2.0); EOSINOPHIL % 0 % (0-5); GRANULOCYTE % 87.9 % (42.2-75.2); HEMATOCRIT 26.4 % (42-52); MEAN CORPUSCULAR HGB 26.5 PG (27.0-31.0); MEAN CORPUSCULAR HGB CONC 31.4 G/DL (33.0-37.0); MEAN CORPUSCULAR VOLUME 84.6 FL (80.0-94.0); MEAN PLATELET VOLUME 8.8 FL (7.4-10.4); PLATELET COUNT 114 /CUMM (130-400); RBC DISTRIBUTION WIDTH 17.9 % (11.5-14.5); RED BLOOD CELL CT 3.12 /CUMM (4.70-6.10); WHITE BLOOD CELL COUNT 7.7 /CUMM (4.8-10.8)
[2017-02-09 16:23] LABS: PT 13.6 SEC (9.4-12.5)
[2017-02-09 16:25] LABS: PTT > 120 SEC (25-37)
--- NOTE | 2017-02-09 16:38 | RADIOLOGY REPORT ---
EXAMINATION: INTRAOPERATIVE FLUOROSCOPY AND SPOT FILMS CLINICAL INFORMATION: Left leg arteriogram with thrombectomy in OR. COMPARISON: None TECHNIQUE/FINDINGS: Fluoroscopic equipment was dedicated to the operating room for the performance of the left leg arteriogram. 19 fluoroscopic runs were performed and are archived in PACS for review. FLUOROSCOPY TIME: 9.18 minutes. IMPRESSION: Administrative dictation for intraoperative fluoroscopy with spot films.
--- NOTE | 2017-02-09 16:44 | RADIOLOGY REPORT ---
EXAMINATION: XR PORTABLE CHEST CLINICAL INFORMATION: Intubated patient. Placement of triple-lumen catheter. COMPARISON: Several prior chest x-rays, most recent of which is dated 02/09/2017. TECHNIQUE: Portable supine frontal view of the chest was obtained. FINDINGS: Endotracheal tube is in place with tip approximately 3.9 cm above the tin. An enteric tube is seen coursing into the left upper quadrant with tip projected over the fundus region. A right jugular central venous line extends into the deep right atrium. This should ideally be withdrawn approximately 7 cm to reside within the distal SVC with repeat radiograph taken for reassessment of positioning. The cardiomediastinal silhouette is enlarged. Calcification of the aortic arch is seen. Diffuse bilateral fluffy airspace opacities are again seen, improved when compared to the prior exam. Findings are likely related to diffuse pulmonary edema. Superimposed dense consolidation or atelectasis in the retrocardiac left lung base is suspected. Bilateral layering pleural effusions are present as well. No pneumothorax is seen. Bony structures are unremarkable. IMPRESSION: 1. Endotracheal tube tip 3.9 cm above the tin. 2. Enteric tube tip projected over the fundus region. 3. Right jugular central venous line tip is in the deep right atrium. Repositioning is recommended as discussed above. 4. Slight improvement in bilateral pulmonary findings, consistent with improving pulmonary edema. 5. Persistent dense consolidation/atelectasis in the retrocardiac left lung base.
[2017-02-09 19:05] LABS: ABSOLUTE BASOPHIL COUNT 0 /CUMM (0.0-0.2); ABSOLUTE EOSINOPHIL COUNT 0 /CUMM (0.0-0.7); ABSOLUTE GRANULOCYTE CT 6.5 /CUMM (1.4-6.5); ABSOLUTE LYMPH COUNT 0.7 /CUMM (1.2-3.4); ABSOLUTE MONOCYTE COUNT 0.5 /CUMM (0.10-0.60); BASOPHIL % 0.1 % (0.0-2.0); EOSINOPHIL % 0 % (0-5); HEMATOCRIT 26.7 % (42-52); MEAN CORPUSCULAR HGB 27.1 PG (27.0-31.0); MEAN CORPUSCULAR HGB CONC 32.8 G/DL (33.0-37.0); MEAN CORPUSCULAR VOLUME 82.6 FL (80.0-94.0); MEAN PLATELET VOLUME 9.2 FL (7.4-10.4); PLATELET COUNT 110 /CUMM (130-400); RBC DISTRIBUTION WIDTH 17.3 % (11.5-14.5); RED BLOOD CELL CT 3.23 /CUMM (4.70-6.10); WHITE BLOOD CELL COUNT 7.6 /CUMM (4.8-10.8)
[2017-02-09 19:13] LABS: GRANULOCYTE % 84.8 % (42.2-75.2)
--- NOTE | 2017-02-09 20:00 | NUR ---
DURING BEDSIDE REPORT, PT NOTED TO HAVE LOST LEFT PEDAL PULSE VIA DOPPLAR. ALSO PT FOOT NOW PALE AND COLD MID FOOT TO TOE AREA. DR. REY AND Chiquita LAUREN PAShannonC NOTIFED AND AT BEDSIDE. PER PA CONTINUE TO MONITOR AND APPLY WARM COMPRESSES TO FOOT. WILL CONITNUE TO MONITOR.
--- NOTE | 2017-02-09 20:54 | PN- Vascular Surgery ---
Subjective Subjective: Postop check: Patient intubated, I was called by nurse due to non-dopplerable dorsal pedal pulse which was last dopplerable around 7 PM. Objective Vital Signs and I&Os Vital Signs Date Time Temp Pulse Resp B/P B/P Pulse O2 O2 Flow FiO2 Mean Ox Delivery Rate 02/09 1930 80 02/09 1604 55 02/09 1530 55 02/09 1015 55 02/09 0800 98 Ventilator 60% 02/09 0800 98.7 84 26 118/68 97 Ventilator 60% 02/09 0750 60 02/09 0606 60 02/09 0353 95 Ventilator 60% 02/09 0248 60 02/09 0015 60 02/09 0000 95 Ventilator 60% 02/09 0000 97.1 90 26 112/68 95 Ventilator 60% 02/08 2247 60 Intake & Output 02/09 1600 02/09 0800 02/09 0000 02/08 1600 02/08 0800 02/08 0000 Intake Total 685 947 629 210 904 Output Total 1420 502 351 0950 900 Balance -735 112 -201 -1150 4 Intake, IV 635 897 429 160 304 Intake, Oral 0 200 50 600 Intake, Other 50 50 Number 0 0 Bowel Movements Output, 100 50 Gastric Drainage Output, Urine 1320 280 605 3036 900 Physical Exam: wdwn intubated L groin dressing with scant bloody discharge No significant swelling into the left groin Left lower extremity lower leg Tadeo wrap and dressing is clean dry and intact. Left foot, mildly cooler than the right foot, capillary refill is approximately 3 seconds which is slightly longer than postop which was about 2 seconds. Dorsal pedal pulse is not palpable or dopplerable. Results Last 48 Hours of Labs: Laboratory Tests 02/09 02/09 02/09 1800 1700 1545 Chemistry Sodium Pending Potassium Pending Chloride Pending Carbon Dioxide Pending Anion Gap Pending BUN Pending Creatinine Pending Glucose Pending Calcium Pending Phosphorus Pending Magnesium Pending Total Bilirubin Pending AST Pending ALT Pending Albumin Pending Coagulation PT (9.4 - 12.5 SEC) 13.6 H INR (0.90 - 1.17) 1.30 H APTT (25 - 37 SEC) Cancelled > 120 *H Hematology CBC w Diff NO MAN DIFF REQ WBC (4.8 - 10.8 /CUMM) 7.6 RBC (4.70 - 6.10 /CUMM) 3.23 L Hgb (14.0 - 18.0 G/DL) 8.8 L Hct (42 - 52 %) 26.7 L MCV (80.0 - 94.0 FL) 82.6 MCH (27.0 - 31.0 PG) 27.1 RDW (11.5 - 14.5 %) 17.3 H Plt Count (130 - 400 /CUMM) 110 L MPV (7.4 - 10.4 FL) 9.2 Gran % (42.2 - 75.2 %) 84.8 H Lymphocytes % (20.5 - 51.1 %) 9.0 L Monocytes % (1.7 - 9.3 %) 6.1 Eosinophils % (0 - 5 %) 0 Basophils % (0.0 - 2.0 %) 0.1 Absolute Granulocytes (1.4 - 6.5 /CUMM) 6.5 Absolute Lymphocytes (1.2 - 3.4 /CUMM) 0.7 L Absolute Monocytes (0.10 - 0.60 /CUMM) 0.5 Absolute Eosinophils (0.0 - 0.7 /CUMM) 0 Absolute Basophils (0.0 - 0.2 /CUMM) 0 PUBS MCHC (33.0 - 37.0 G/DL) 32.8 L 02/09 02/09 02/09 1530 1406 1220 Blood Gas pH (7.35 - 7.45 PH) 7.36 pCO2 (35 - 45 TORR) 49 H pO2 (80 - 100 TORR) 250 H HCO3 (21 - 28 MEQ/L) 27 ABG O2 Sat (Measured) (>96.0 %) 99.0 P-50 (Temp Corrected) N Carboxyhemoglobin (1.5 - 5.0 %) 1.3 L O2 Concentration % 100% O2 Delivery Method OR VENT Chemistry Troponin I (<0.11 ng/ml) 3.81 *H Hematology CBC w Diff NO MAN DIFF REQ WBC (4.8 - 10.8 /CUMM) 7.7 RBC (4.70 - 6.10 /CUMM) 3.12 L Hgb (14.0 - 18.0 G/DL) 8.3 L Hct (42 - 52 %) 26.4 L MCV (80.0 - 94.0 FL) 84.6 MCH (27.0 - 31.0 PG) 26.5 L RDW (11.5 - 14.5 %) 17.9 H Plt Count (130 - 400 /CUMM) 114 L MPV (7.4 - 10.4 FL) 8.8 Gran % (42.2 - 75.2 %) 87.9 H Lymphocytes % (20.5 - 51.1 %) 6.6 L Monocytes % (1.7 - 9.3 %) 4.4 Eosinophils % (0 - 5 %) 0 Basophils % (0.0 - 2.0 %) 1.1 Absolute Granulocytes (1.4 - 6.5 /CUMM) 6.8 H Absolute Lymphocytes (1.2 - 3.4 /CUMM) 0.5 L Absolute Monocytes (0.10 - 0.60 /CUMM) 0.3 Absolute Eosinophils (0.0 - 0.7 /CUMM) 0 Absolute Basophils (0.0 - 0.2 /CUMM) 0.1 PUBS MCHC (33.0 - 37.0 G/DL) 31.4 L Miscellaneous Phlebotomy Draw Site A-LINE 02/09 02/09 02/09 0730 0705 0600 Blood Gas pH (7.35 - 7.45 PH) 7.51 H pCO2 (35 - 45 TORR) 37 pO2 (80 - 100 TORR) 72 L HCO3 (21 - 28 MEQ/L) 28 ABG O2 Sat (Measured) (>96.0 %) 95.0 L P-50 (Temp Corrected) N Carboxyhemoglobin (1.5 - 5.0 %) 0.9 L O2 Concentration % .60 Respiration Rate (BPM) 26 O2 Delivery Method VENT Vent Mode A/C Expiratory Pressure (CMH2O/P) 5 Tidal Volume (CC) 550 Chemistry Troponin I (<0.11 ng/ml) Cancelled 4.87 *H Miscellaneous Phlebotomy Draw Site RIGHT RADIAL 02/09 02/09 02/08 0505 0130 2200 Chemistry Sodium (137 - 145 mmol/L) 138 Cancelled Potassium (3.5 - 5.1 mmol/L) 3.3 L Cancelled Chloride (98 - 107 mmol/L) 102 Cancelled Carbon Dioxide (22 - 30 mmol/L) 30 Cancelled Anion Gap (5 - 16) 6 Cancelled BUN (9 - 20 mg/dL) 13 Cancelled Creatinine (0.7 - 1.2 mg/dL) 0.4 L Cancelled Estimated GFR (>60 ml/min) > 60 Glucose (65 - 99 mg/dL) 152 H Cancelled Calcium (8.4 - 10.2 mg/dL) 7.4 L Cancelled Phosphorus (2.5 - 4.5 mg/dL) 1.9 L Cancelled Magnesium (1.6 - 2.3 mg/dL) 2.2 Cancelled Total Bilirubin (0.2 - 1.3 mg/dL) 0.8 Cancelled AST (17 - 59 U/L) 56 Cancelled ALT (21 - 72 U/L) 47 Cancelled Troponin I (<0.11 ng/ml) 4.88 *H Albumin (3.5 - 5.0 g/dL) 2.4 L Cancelled Coagulation PT (9.4 - 12.5 SEC) 12.7 H INR (0.90 - 1.17) 1.21 H APTT (25 - 37 SEC) 68 H Hematology CBC w Diff MAN DIFF ORDERED WBC (4.8 - 10.8 /CUMM) 6.0 RBC (4.70 - 6.10 /CUMM) 2.92 L Hgb (14.0 - 18.0 G/DL) 7.8 L Hct (42 - 52 %) 24.4 L MCV (80.0 - 94.0 FL) 83.6 MCH (27.0 - 31.0 PG) 26.7 L RDW (11.5 - 14.5 %) 19.1 H Plt Count (130 - 400 /CUMM) 114 L MPV (7.4 - 10.4 FL) 8.7 Gran % (42.2 - 75.2 %) 87.1 H Lymphocytes % (20.5 - 51.1 %) 7.6 L Monocytes % (1.7 - 9.3 %) 5.1 Eosinophils % (0 - 5 %) 0.1 Basophils % (0.0 - 2.0 %) 0.1 Absolute Granulocytes (1.4 - 6.5 /CUMM) 5.2 Absolute Lymphocytes (1.2 - 3.4 /CUMM) 0.5 L Absolute Monocytes (0.10 - 0.60 /CUMM) 0.3 Absolute Eosinophils (0.0 - 0.7 /CUMM) 0 Absolute Basophils (0.0 - 0.2 /CUMM) 0 Platelet Estimate (ADEQUATE) DECREASED Polychromasia 1+ Hypochromic-Microcytic 1+ PUBS MCHC (33.0 - 37.0 G/DL) 31.9 L 02/08 02/08 02/08 2100 1820 1436 Blood Gas pH (7.35 - 7.45 PH) 7.34 L pCO2 (35 - 45 TORR) 51 H pO2 (80 - 100 TORR) 145 H HCO3 (21 - 28 MEQ/L) 27 ABG O2 Sat (Measured) (>96.0 %) 99.0 P-50 (Temp Corrected) YES Carboxyhemoglobin (1.5 - 5.0 %) 0.8 L O2 Concentration % 100% Temperature (97.0 - 100.0 FARH) 97.4 Respiration Rate (BPM) 26 O2 Delivery Method VENT Vent Mode AC Expiratory Pressure (CMH2O/P) 5 Tidal Volume (CC) 550 Chemistry Sodium (137 - 145 mmol/L) 138 Potassium (3.5 - 5.1 mmol/L) 3.8 Chloride (98 - 107 mmol/L) 102 Carbon Dioxide (22 - 30 mmol/L) 31 H Anion Gap (5 - 16) 5 BUN (9 - 20 mg/dL) 12 Creatinine (0.7 - 1.2 mg/dL) 0.4 L Estimated GFR (>60 ml/min) > 60 Glucose (65 - 99 mg/dL) 134 H Calcium (8.4 - 10.2 mg/dL) 7.1 L Phosphorus (2.5 - 4.5 mg/dL) 1.8 L Magnesium (1.6 - 2.3 mg/dL) 2.0 Total Bilirubin (0.2 - 1.3 mg/dL) 0.8 AST (17 - 59 U/L) 49 ALT (21 - 72 U/L) 34 Troponin I (<0.11 ng/ml) 2.18 *H Albumin (3.5 - 5.0 g/dL) 2.3 L Coagulation APTT (25 - 37 SEC) 49 H Hematology CBC w Diff NO MAN DIFF REQ WBC (4.8 - 10.8 /CUMM) 7.1 RBC (4.70 - 6.10 /CUMM) 2.96 L Hgb (14.0 - 18.0 G/DL) 7.8 L Hct (42 - 52 %) 24.6 L MCV (80.0 - 94.0 FL) 83.3 MCH (27.0 - 31.0 PG) 26.4 L RDW (11.5 - 14.5 %) 19.3 H Plt Count (130 - 400 /CUMM) 115 L MPV (7.4 - 10.4 FL) 8.9 Gran % (42.2 - 75.2 %) 89.9 H Lymphocytes % (20.5 - 51.1 %) 5.2 L Monocytes % (1.7 - 9.3 %) 4.8 Eosinophils % (0 - 5 %) 0 Basophils % (0.0 - 2.0 %) 0.1 Absolute Granulocytes (1.4 - 6.5 /CUMM) 6.3 Absolute Lymphocytes (1.2 - 3.4 /CUMM) 0.4 L Absolute Monocytes (0.10 - 0.60 /CUMM) 0.3 Absolute Eosinophils (0.0 - 0.7 /CUMM) 0 Absolute Basophils (0.0 - 0.2 /CUMM) 0 PUBS MCHC (33.0 - 37.0 G/DL) 31.7 L Miscellaneous Phlebotomy Draw Site RIGHT RADIAL 02/08 02/08 02/08 1300 1300 1242 Blood Gas pH (7.35 - 7.45 PH) 7.49 H pCO2 (35 - 45 TORR) 37 pO2 (80 - 100 TORR) 60 L HCO3 (21 - 28 MEQ/L) 27 ABG O2 Sat (Measured) (>96.0 %) 93.0 L P-50 (Temp Corrected) YES Carboxyhemoglobin (1.5 - 5.0 %) 0.7 L O2 Concentration % 75% Temperature (97.0 - 100.0 FARH) 97.4 Respiration Rate (BPM) 20 O2 Delivery Method BIPAP Vent Mode ST Expiratory Pressure (CM H2O P) 6 Inspiratory Pressure (CM H2O P) 16 Chemistry Sodium (137 - 145 mmol/L) 138 Potassium (3.5 - 5.1 mmol/L) 3.3 L Chloride (98 - 107 mmol/L) 101 Carbon Dioxide (22 - 30 mmol/L) 29 Anion Gap (5 - 16) 8 BUN (9 - 20 mg/dL) 10 Creatinine (0.7 - 1.2 mg/dL) 0.4 L Estimated GFR (>60 ml/min) > 60 Glucose (65 - 99 mg/dL) 119 H Lactic Acid (0.7 - 2.1 mmol/L) 1.4 Calcium (8.4 - 10.2 mg/dL) 7.3 L Phosphorus (2.5 - 4.5 mg/dL) 2.0 L Magnesium (1.6 - 2.3 mg/dL) 1.9 Total Bilirubin (0.2 - 1.3 mg/dL) 0.9 AST (17 - 59 U/L) 43 ALT (21 - 72 U/L) 32 Troponin I (<0.11 ng/ml) 0.83 *H Albumin (3.5 - 5.0 g/dL) 2.5 L Miscellaneous Phlebotomy Draw Site RIGHT RADIAL 02/08 0520 Chemistry Sodium (137 - 145 mmol/L) 136 L Potassium (3.5 - 5.1 mmol/L) 3.0 L Chloride (98 - 107 mmol/L) 101 Carbon Dioxide (22 - 30 mmol/L) 28 Anion Gap (5 - 16) 8 BUN (9 - 20 mg/dL) 10 Creatinine (0.7 - 1.2 mg/dL) 0.5 L Estimated GFR (>60 ml/min) > 60 Glucose (65 - 99 mg/dL) 124 H Calcium (8.4 - 10.2 mg/dL) 7.3 L Phosphorus (2.5 - 4.5 mg/dL) 1.7 L Magnesium (1.6 - 2.3 mg/dL) 1.8 Total Bilirubin (0.2 - 1.3 mg/dL) 0.8 AST (17 - 59 U/L) 34 ALT (21 - 72 U/L) 35 Albumin (3.5 - 5.0 g/dL) 2.4 L Hematology CBC w Diff NO MAN DIFF REQ WBC (4.8 - 10.8 /CUMM) 11.0 H RBC (4.70 - 6.10 /CUMM) 3.19 L Hgb (14.0 - 18.0 G/DL) 8.4 L Hct (42 - 52 %) 26.7 L MCV (80.0 - 94.0 FL) 83.8 MCH (27.0 - 31.0 PG) 26.5 L RDW (11.5 - 14.5 %) 19.5 H Plt Count (130 - 400 /CUMM) 130 MPV (7.4 - 10.4 FL) 9.0 Gran % (42.2 - 75.2 %) 91.6 H Lymphocytes % (20.5 - 51.1 %) 3.1 L Monocytes % (1.7 - 9.3 %) 5.1 Eosinophils % (0 - 5 %) 0.2 Basophils % (0.0 - 2.0 %) 0 L Absolute Granulocytes (1.4 - 6.5 /CUMM) 10.1 H Absolute Lymphocytes (1.2 - 3.4 /CUMM) 0.3 L Absolute Monocytes (0.10 - 0.60 /CUMM) 0.6 Absolute Eosinophils (0.0 - 0.7 /CUMM) 0 Absolute Basophils (0.0 - 0.2 /CUMM) 0 PUBS MCHC (33.0 - 37.0 G/DL) 31.6 L Assessment/Plan Assessment/Plan Postop day #0 status post left groin cut down, left leg angiogram, thrombectomy of popliteal and superior femoral artery, secondary to acute thrombus 2 and 4 compartment fasciotomy Discussed with Dr. Biswas, patient no longer has a dopplerable dorsal pedal pulse, possibly secondary to patient being immediately hyperemic postoperatively and now has returned back to baseline, would recommend continue heparin drip and continued monitoring. Vascular checks every hour Warm compresses to the foot Daily dressing changes to the fasciotomy site With Xeroform Heparin drip Perioperative antibiotics 2 doses Acute blood loss anemia: Status post 2 units transfusion, continue monitoring CBC
--- NOTE | 2017-02-09 22:33 | RADIOLOGY REPORT ---
EXAMINATION: XR PORTABLE CHEST CLINICAL INFORMATION: Position of central line. COMPARISON: Radiograph from earlier today. TECHNIQUE: Portable frontal view of the chest was obtained. FINDINGS: The right internal jugular central venous catheter continues to terminate in the right atrium, approximately 4 cm beyond the cavoatrial junction. This is partially retracted from the prior study. Cardiac leads overlie the chest. Endotracheal tube terminates 3 cm above the tin. Low lung volumes. Persistent bilateral airspace opacities. This is without significant change from prior. No pneumothorax. Small pleural effusions. The cardiomediastinal silhouette is unchanged. IMPRESSION: 1. Partial retraction of the right internal jugular central venous catheter, still terminating within the right atrium, approximately 4 cm beyond the cavoatrial junction. Recommend repositioning. 2. Endotracheal tube 3 cm above the tin. 3. Persistent bilateral airspace opacities.
--- NOTE | 2017-02-10 00:37 | RADIOLOGY REPORT ---
EXAMINATION: CHEST 1 VIEW CLINICAL INFORMATION: Line placement. COMPARISON: Same day film obtained at 2205 hours. TECHNIQUE: An AP view of the chest was obtained at 2352 hours. FINDINGS: The cardiothymic silhouette is stable. The endotracheal tube and enteric tube are in unchanged position. A right central venous line is in place. The tip overlies the distal SVC. Again identified is diffuse mixed interstitial and airspace disease. There are likely small bilateral pleural effusions. The osseous structures are stable. IMPRESSION: Lines and tubes in place as stated above. Stable extensive bilateral mixed interstitial and airspace disease with likely small bilateral pleural effusions.
[2017-02-10 01:52] LABS: PTT 58 SEC (25-37)
[2017-02-10 01:54] VITALS: BP 112/68
--- NOTE | 2017-02-10 03:00 | PN- Vascular Surgery ---
Subjective Subjective: Intubated. No acute events since I had seen him last evening Objective Vital Signs and I&Os Vital Signs Date Time Temp Pulse Resp B/P B/P Pulse O2 O2 Flow FiO2 Mean Ox Delivery Rate 02/10 0154 95 Ventilator 70% 02/10 0154 97.5 86 22 112/68 95 Ventilator 70% 02/10 0120 60 02/10 0115 70 02/09 2240 70 02/09 2000 96 Ventilator 80% 02/09 1930 80 02/09 1604 55 02/09 1530 55 02/09 1015 55 02/09 0800 98 Ventilator 60% 02/09 0800 98.7 84 26 118/68 97 Ventilator 60% 02/09 0750 60 02/09 0606 60 02/09 0353 95 Ventilator 60% Intake & Output 02/10 0800 02/10 0000 02/09 1600 02/09 0800 02/09 0000 02/08 1600 Intake Total 451 685 947 629 Output Total 240 1420 835 830 Balance 211 -735 112 -201 Intake, IV 331 635 897 429 Intake, Oral 0 200 Intake, Other 120 50 50 Number 0 Bowel Movements Output, 50 100 50 Gastric Drainage Output, Urine 190 1320 785 830 Physical Exam: Well-developed well-nourished Intubated Heart: Regular rate and rhythm Left groin with mild swelling, mild serous sanguinous drainage on dressing slightly increased. Left lower extremity, appears warmer to touch than yesterday evening, dressings clean dry and intact at the lower leg. Capillary refill approximately 3 seconds. Dorsal pedal pulse and posterior tibial pulse was not dopplerable. The foot is slightly warmer than it was on my last examination, otherwise there is no significant change Assessment/Plan Assessment/Plan Postop day #1 status post left groin cut down, left leg angiogram, thrombectomy of popliteal and superior femoral artery, secondary to acute thrombus 2 and [address] Crystal, recommends workup for heparin-induced thrombocytopenia, discussed with ICU staff, labs pending. he will evaluate in the morning. continue heparin drip and continued monitoring. Vascular checks every hour- no acute change overnight Warm compresses to the foot Daily dressing changes to the fasciotomy site With Xeroform Perioperative antibiotics 2 doses Acute blood loss anemia: stable Appreciate medical management
[2017-02-10 05:10] LABS: ABSOLUTE BASOPHIL COUNT 0 /CUMM (0.0-0.2); ABSOLUTE EOSINOPHIL COUNT 0 /CUMM (0.0-0.7); ABSOLUTE GRANULOCYTE CT 7.5 /CUMM (1.4-6.5); ABSOLUTE LYMPH COUNT 0.5 /CUMM (1.2-3.4); ABSOLUTE MONOCYTE COUNT 0.4 /CUMM (0.10-0.60); BASOPHIL % 0 % (0.0-2.0); EOSINOPHIL % 0 % (0-5); GRANULOCYTE % 89.7 % (42.2-75.2); HEMATOCRIT 28.1 % (42-52); MEAN CORPUSCULAR HGB 26.7 PG (27.0-31.0); MEAN CORPUSCULAR VOLUME 83.5 FL (80.0-94.0); MEAN PLATELET VOLUME 9.2 FL (7.4-10.4); PLATELET COUNT 131 /CUMM (130-400); RBC DISTRIBUTION WIDTH 17.6 % (11.5-14.5); RED BLOOD CELL CT 3.36 /CUMM (4.70-6.10); WHITE BLOOD CELL COUNT 8.4 /CUMM (4.8-10.8)
--- NOTE | 2017-02-10 06:49 | PN- Resident CRCU ---
Subjective HPI/CRCU Issues: Patient seen and examined at bedside this AM. He remains intubated and sedated. Patient was taken to the OR yesterday for LLE thrombectomy at which time he received 2 U PRBCs. He remains on a propofol and ativan drip along with IV heparin gtt for myocardial infarction. 24 Hour Events: Vital signs last 24 hours: T 97.4-98.7, HR 76-90, RR 18-24, BP 99-136/52-75, O2 93-97% on AC RR 18, VT 550, 40% FiO2 and 5 PEEP. Total input last 24 hours: 1375 cc Total output last 24 hours: 2065 cc Objective Vital Signs & I&O Last 8 Hrs of Vitals and I&O: T 97.4-98.7, HR 76-90, RR 18-24, BP 99-136/52-75, O2 93-97% on AC RR 18, VT 550, 40% FiO2 and 5 PEEP. Intake & Output 02/10 1600 Intake Total Output Total Balance Patient 193 lb Weight Exam General Appearance: well developed/nourished, no apparent distress, sedated, intubated Head: atraumatic, normal appearance Ears, Nose, Throat: normal pharynx, moist mucus membranes Neck: normal inspection, supple, No JVD Respiratory: no respiratory distress, quiet respiration, Improving wheezing/ crackles, improved aeration bilaterly Cardiovascular: regular rate/rhythm Gastrointestinal: normal bowel sounds, soft, non-tender Extremities: no edema, LLE interval improvement in color (Now pink) and warmth ( no longer cool to touch). Dressing s/p fasciotomy in place without signs of bleeding Cranial Nerves: PERRL Skin: intact, warm/dry Nutrition Nutrition: NPO Current Medications: Current Medications Sig/Lillie Start time Last Medication Dose Route Stop Time Status Admin Acetaminophen 650 MG Q6P PRN 02/03 2000 AC 02/07 PO 1136 Acetaminophen 1,000 MG Q6P PRN 02/03 2000 AC IV Albuterol Sulfate 3 ML EVERY 4 HRS/AWAKE 02/07 1200 AC 02/10 INH 1145 Albuterol Sulfate 2 PUF Q4-6 PRN PRN 02/03 0645 AC 02/04 INH 2320 Aspirin 81 MG DAILY 02/08 1609 AC 02/10 PO 0915 Budesonide/ 2 PUF BID 02/03 1000 AC 02/08 Formoterol Fumarate INH 1045 Cefazolin Sodium 2 GM Q8H 02/09 1900 NE 02/10 N/A 1 UNIT IV 02/10 0329 0252 Fentanyl Citrate 1,000 MCG Q24H 02/10 0830 AC 02/10 Dextrose/Water 250 ML IV 0910 Fentanyl Citrate 250 MCG .STK-MED ONE 02/09 1734 DC IM 02/09 1735 Fentanyl Citrate 250 MCG .STK-MED ONE 02/09 1547 DC IM 02/09 1548 Folic Acid 1 MG DAILY 02/07 1000 AC 02/10 PO 0910 Furosemide 80 MG Q8 02/09 0730 AC 02/10 IV 1241 Gabapentin 300 MG Q8 02/03 0620 AC 02/10 PO 1242 Heparin Sodium 25,000 UNIT Q24H 02/08 1330 AC 02/10 (Porcine) IV 0254 Sodium Chloride 500 ML Lorazepam 50 MG Q12H 02/09 0600 02/10 Dextrose/Water 500 ML IV 0615 Magnesium Oxide 400 MG BID 02/06 1000 02/10 PO 0910 Methylprednisolone 40 MG DAILY 02/11 1000 CAN IV 02/15 1001 Methylprednisolone 40 MG Q12 02/10 2200 AC IV Methylprednisolone 40 MG Q12 02/10 1000 DC 02/10 IV 1039 Methylprednisolone 40 MG Q6 02/05 2359 DC 02/10 IV 0615 Metoprolol Tartrate 12.5 MG BID 02/10 2200 CAN PO Midazolam HCl 2 MG .STK-MED ONE 02/09 1734 NE IM 02/09 1735 Midazolam HCl 2 MG .STK-MED ONE 02/09 1547 [facility] 02/09 1548 Multivitamins 1 TAB DAILY 02/07 1000 AC 02/10 PO 0910 Nitroglycerin 0.5 GM Q6 02/08 1800 AC 02/10 TOP 1210 Pantoprazole Sodium 40 MG DAILY 02/09 1000 AC 02/10 IV 0916 Phosphate 500 MG PC AND AT BEDTIME 02/10 0900 DC PO Phosphate 500 MG PC AND AT BEDTIME 02/10 0230 AC 02/10 PO 1210 Potassium Chloride 40 MEQ ONCE ONE 02/09 2200 DC 02/09 PO 02/09 220 2212 Potassium Chloride 10 MEQ ONCE ONE 02/09 2130 DC 02/09 IV 02/09 213 220 Potassium Chloride 10 MEQ ONCE ONE 02/09 2130 DC 02/10 IV 02/09 213 0013 Potassium Chloride 40 MEQ DAILY 02/09 1000 AC 02/10 PO 0915 Potassium Phosphate 15 mMol ONE ONE 02/10 0600 CAN Dextrose/Water 250 ML IV 02/10 1003 Pravastatin Sodium 40 MG 1700 02/04 1700 AC 02/09 PO 2022 Propofol 1,000 MG Q24H 02/08 1345 AC 02/10 N/A 100 ML IV 0014 Thiamine HCl 50 MG DAILY 02/07 1000 AC 02/10 PO 0911 Tiotropium [place] 1 PUF DAILY 02/05 1208 AC 02/08 INH 1045 Impression/Plan Impression/Problem List Impression: Mr. Flores is a pleasant 61 year old male with PMH asthma, dyslipidemia, alcohol abuse, previous alcohol withdrawl seizure, and DVT x 2 (2014, August 2016) currently on coumadin who presented with chief complaint of several episodes of coffe-ground emesis and dark, tarry stools without overt blood/ clots. Associated symptoms at time of presentation included easy bleeding/ brusing of his extremities and dyspnea on exertion. Of note, patient was started on anticoagulation with his second episode of DVT in August of 2016. He was inadvertently placed on both xarelto by his PCP and Coumadin by Dr. De Santiago, vascular surgery, until 1-2 weeks later when this was noted and his PCP discontinued Xarelto. In the ED: Vital signs showed a Tmax of 994. HR 117, RR 22, BP 99/54 and O2 saturation of 99% on room air. Labs were significant for H&H 5.3/16.7, Plt 259, Na 131, K 4.1, HCO3 16, Cre 0.6 , Ca 8, Albumin 2.5, INR >10. EKG showed sinus tachycardia and no significant ST/T wave changes. Patient is currently admitted to the ICU and the following is the management: 1. Acute blood loss anemia secondary to GI bleed in the setting of supratherapeutic INR * GI consult placed and appreciated, continue to follow recommendations * Continue to hold coumadin, no further bleeding has been noted * Patient is s/p EGD which was grossly normal, no active bleeding * Patient will require colonoscopy likely as an outpatient after discharge * CBC now stable after 6 units prbcs total, 2 U given in the OR yesterday during thrombectomy and fasciotomy * INR now subtherapeutic after 4 units FFP, patient s/p IVC filter placement with IR * Patient continued on heparin drip due to concerns for ST changes/LLE thrombosis * IV protonix daily * Strict Is/Os 2. Elevated troponins * Troponins peaked at 4.[address] elevations, cardiology aware * Heparin drip continued * Cardio consult placed and appreciated, follow recomendations * NTG paste 1/2 inch Q6h started; add IV lopressor 5 mg IV if BP tolerates * Begin aspirin, continue statin * Echocardiogram shows normal EF at 60%, trace MR, mild-mod TR, moderate pulm HTN * Patient will likely require treadmill nuclear stress test as an outpatient 3. Alcohol abuse * CIWA scoring discontinued as patient only scoring 0 4. History of DVT with non-palpable pedal pulses * Bilateral lower extremity venous dopplers shows extensive lef lower extremity near occlusive DVT, no RLE DVT * Hold coumadin due to acute blood loss anemia; Patient now s/p IVC filter placement, continue heparin * Patient POD#1 from fasciotomy with LLE thrombectomy with vascular surgery and now LLE has improved warmth/color * Q1 hour monitoring of LLE * Continue daily dressing changes * Continue to follow vascular recommendations 5. Acute respiratory distress in setting of likely underlying COPD * Consideration for fluid overload in the setting of frequent transfusions vs ARDS * Continue mechanical ventilation for now, f/u daily CXR * ID consult appreciated, recommends watching off antibiotics and following up repeat blood cultures * If patient deteriorates, will cover empirically with IV vanco and ceftaz * IV lasix drip discontinued in favor of IV lasix boluses 80 mg Q8 as recommended by cardio; aggressive diuresis to maintain negative fluid balance * Titrate down FiO2 to maintain sat >92% * Attempt to wean off of propofol and start fentanyl drip for pain; continue ativan drip * Solumedrol decreased to Q12 today * Of note, echo also shows moderate pulmonary HTN 6. Chronic pain * Continue neurontin 300 mg PO Q8 * PO tylenol for mild pain, IV tylenol for moderate pain 7. Dietary * Nutrition consult appreciated * Started tube feeds with Jevity today, titrate up as tolerated FULL CODE DVTP: ALPS Tube Feeds Mild-moderate pain pathway Problem List: 1. Asthma 2. ETOH ABUSE 3. Pedal edema 4. DVT (deep venous thrombosis) 5. GI bleed 6. Acute respiratory distress 7. H/O fasciotomy Pain Ratin Tomorrow's Labs & Rationales: CBC (acute blood loss anemia on heparin gtt) ICU bundle (hypophosphatemia, hypokalemia) Plan DVT/Prophylaxis: mechanical (no pharm 2/2 acute blood loss)
[2017-02-10 08:00] VITALS: BP 102/60
--- NOTE | 2017-02-10 08:46 | PN- CRCU ---
Subjective HPI/Critical Care Issues: The patient remains intubated, and sedated on propofol and Ativan. He remains hemodynamically stable. The patient tolerated 2 units of blood for acute blood loss anemia yesterday. He reportedly was stable throughout his surgery. The patient's oxygen requirement is now down to 40%. Objective Current Medications: Current Medications Sig/Lillie Start time Last Medication Dose Route Stop Time Status Admin Acetaminophen 650 MG Q6P PRN 02/03 2000 AC 02/07 PO 1136 Acetaminophen 1,000 MG Q6P PRN 02/03 2000 AC IV Albuterol Sulfate 3 ML EVERY 4 HRS/AWAKE 02/07 1200 AC 02/09 INH 2010 Albuterol Sulfate 2 PUF Q4-6 PRN PRN 02/03 0645 AC 02/04 INH 2320 Aspirin 81 MG DAILY 02/08 1609 AC 02/09 PO 2016 Budesonide/ 2 PUF BID 02/03 1000 AC 02/08 Formoterol Fumarate INH 1045 Cefazolin Sodium 2 GM Q8H 02/09 1900 DC 02/10 N/A 1 UNIT IV 02/10 0329 0252 Fentanyl Citrate 1,000 MCG Q24H 02/10 0830 AC Dextrose/Water 250 ML IV Fentanyl Citrate 250 MCG .STK-MED ONE 02/09 1734 DC IM 02/09 1735 Fentanyl Citrate 250 MCG .STK-MED ONE 02/09 1547 DC IM 02/09 1548 Folic Acid 1 MG DAILY 02/07 1000 AC 02/08 PO 1045 Furosemide 80 MG Q8 02/09 0730 AC 02/10 IV 0610 Gabapentin 300 MG Q8 02/03 0620 AC 02/10 PO 0615 Heparin Sodium 25,000 UNIT Q24H 02/08 1330 AC 02/10 (Porcine) IV 0254 Sodium Chloride 500 ML Lorazepam 50 MG Q12H 02/09 0600 AC 02/10 Dextrose/Water 500 ML IV 0615 Magnesium Oxide 400 MG BID 02/06 1000 AC 02/09 PO 2203 Methylprednisolone 40 MG Q6 02/05 2359 AC 02/10 IV 0615 Midazolam HCl 2 MG .STK-MED ONE 02/09 1734 DC IM 02/09 1735 Midazolam HCl 2 MG .STK-MED ONE 02/09 1547 DC IM 02/09 1548 Multivitamins 1 TAB DAILY 02/07 1000 AC 02/08 PO 1045 Nitroglycerin 0.5 GM Q6 02/08 1800 AC 02/10 TOP 0623 Norepinephrine 4 MG .STK-MED ONE 02/09 0959 DC IV 02/09 1000 Pantoprazole Sodium 40 MG DAILY 02/09 1000 AC 02/09 IV 0912 Phosphate 500 MG PC AND AT BEDTIME 02/10 0900 DC PO Phosphate 500 MG PC AND AT BEDTIME 02/10 0230 AC 02/10 PO 0251 Phosphate 250 MG PC AND AT BEDTIME 02/08 1800 DC 02/09 PO 02/09 1301 2017 Potassium Chloride 40 MEQ ONCE ONE 02/09 2200 DC 02/09 PO 02/09 220 221 Potassium Chloride 10 MEQ ONCE ONE 02/09 2130 DC 02/09 IV 02/09 213 2201 Potassium Chloride 10 MEQ ONCE ONE 02/09 2130 DC 02/10 IV 02/09 2131 0013 Potassium Chloride 10 MEQ Q1H 02/09 1015 DC 02/09 IV 02/09 1116 1018 Potassium Chloride 40 MEQ DAILY 02/09 1000 AC 02/09 PO 1600 Potassium Phosphate 15 mMol ONE ONE 02/10 0600 CAN Dextrose/Water 250 ML IV 02/10 1003 Pravastatin Sodium 40 MG 1700 02/04 1700 AC 02/09 PO 2022 Propofol 1,000 MG Q24H 02/08 1345 AC 02/10 N/A 100 ML IV 0014 Thiamine HCl 50 MG DAILY 02/07 1000 AC 02/08 PO 1045 Tiotropium [place] 1 PUF DAILY 02/05 1208 AC 02/08 INH 1045 Vital Signs & I&O Last 24 Hrs of Vitals and I&O: Vital Signs Date Time Temp Pulse Resp B/P B/P Pulse O2 O2 Flow FiO2 Mean Ox Delivery Rate 02/10 0556 40 02/10 0553 50 02/10 0405 50 02/10 0401 60 02/10 0154 95 Ventilator 70% 02/10 0154 97.5 86 22 112/68 95 Ventilator 70% 02/10 0120 60 02/10 0115 70 02/09 2240 70 02/09 2000 96 Ventilator 80% 02/09 1930 80 02/09 1604 55 02/09 1530 55 02/09 1015 55 Intake & Output 02/10 1600 02/10 0800 02/10 0000 Intake Total 451 Output Total 240 Balance 211 Intake, IV 331 Intake, Other 120 Output, 50 Gastric Drainage Output, Urine 190 Exam General Appearance: intubated and sedated, comfortable Head: atraumatic, normal appearance Neck: supple Respiratory: bilateral wheezing and crackles scattered throughout, lungs expand symmetrically Cardiovascular: regular rate/rhythm Abdomen: normal bowel sounds, soft, non-tender Extremities: right lower extremity warm and dry, left lower extremity dressings in place, warm compress applied Skin: intact, normal color, warm/dry Results Last 24 Hrs of Lab Results: Laboratory Tests 02/10/17 0400: Anion Gap 4 L, Estimated GFR > 60, Glucose 141 H, Calcium 7.3 L, Phosphorus 1.3 L, Magnesium 2.3, Total Bilirubin 1.0, AST 65 H, ALT 56, Albumin 2.3 L, CBC w Diff NO MAN DIFF REQ, RBC 3.36 L, MCV 83.5, MCH 26.7 L, RDW 17.6 H, MPV 9.2, Gran % 89.7 H, Lymphocytes % 5.8 L, Monocytes % 4.5, Eosinophils % 0, Basophils % 0 L, Absolute Granulocytes 7.5 H, Absolute Lymphocytes 0.5 L, Absolute Monocytes 0.4, Absolute Eosinophils 0, Absolute Basophils 0, PUBS MCHC 32.0 L 02/10/17 0105: APTT 58 H 02/09/17 2125: Troponin I 3.00 *H 02/09/17 1800: Anion Gap 3 L, Estimated GFR > 60, Glucose 145 H, Calcium 7.3 L, Phosphorus 1.8 L, Magnesium 2.2, Total Bilirubin 1.4 H, AST 69 H, ALT 48, Albumin 2.2 L , CBC w Diff NO MAN DIFF REQ, RBC 3.23 L, MCV 82.6, MCH 27.1, RDW 17.3 H, MPV 9.2, Gran % 84.8 H, Lymphocytes % 9.0 L, Monocytes % 6.1, Eosinophils % 0, Basophils % 0.1, Absolute Granulocytes 6.5, Absolute Lymphocytes 0.7 L, Absolute Monocytes 0.5, Absolute Eosinophils 0, Absolute Basophils 0, PUBS MCHC 32.8 L 02/09/17 1700: APTT Cancelled 02/09/17 1545: PT 13.6 H, INR 1.30 H, APTT > 120 *H 02/09/17 1530: Troponin I 3.81 *H 02/09/17 1406: CBC w Diff NO MAN DIFF REQ, RBC 3.12 L, MCV 84.6, MCH 26.5 L, RDW 17.9 H, MPV 8.8, Gran % 87.9 H, Lymphocytes % 6.6 L, Monocytes % 4.4, Eosinophils % 0, Basophils % 1.1, Absolute Granulocytes 6.8 H, Absolute Lymphocytes 0.5 L, Absolute Monocytes 0.3, Absolute Eosinophils 0, Absolute Basophils 0.1, PUBS MCHC 31.4 L 02/09/17 1220: pH 7.36, pCO2 49 H, pO2 250 H, HCO3 27, ABG O2 Sat (Measured) 99.0, P-50 (Temp Corrected) N, Carboxyhemoglobin 1.3 L, O2 Concentration % 100%, O2 Delivery Method OR VENT, Phlebotomy Draw Site A-LINE Diagnostic Data CXR Findings: Pending. Impression/Plan Impression/Plan Impression/Plan: 1. Left lower extremity ischemia, status post left groin cutdown with left leg angiogram and embolectomy with fasciotomy. 2. Acute hypoxemic respiratory failure, clinically improving. 3. COPD with mild bronchospasm. 4. Electrolyte abnormalities. 5. Acute NV. 6. Recurrent lower extremity DVTs, status post IVC filter. 7. Patient initially admitted with a GI bleed, no evidence of active bleeding at present. Recommendations: * Check a portable chest x-ray to ensure adequate positioning of all lines and tubes. * Titrate oxygen down for sats greater than 92%. * Continue with diuresis as recommended by cardiology. * Replete phosphorus. Continue with electrolyte repletion. * Check labs every 12 hours today. * Continue heparin drip for therapeutic PTT. * Attempt to wean propofol off today. * Continue Ativan drip for an SAS of 3. * Begin fentanyl drip at 25 g per hour, adjust for appropriate pain control. * Continue TRC for nebulizer treatments. * Decrease Solumedrol to q 12 hours. * Nutrition consult for tube feeds. Please start today. * Continue MVI/thiamine/folate. * IV Protonix. * Continue Vent bundle q shift. * Follow up recommendations from vascular surgery regarding the loss of dopplerable left lower extremity pulse. We will continue with warm compresses and q 1 hour monitoring. * Continue all current support.
[2017-02-10 09:52] LABS: PTT 70 SEC (25-37)
--- NOTE | 2017-02-10 11:07 | NUR ---
PATIENT TITRATED OFF PROPOFOL, GIVEN 50MCG BOLUS OF FENTANYL AND STARTED ON FENTANYL GTT AT 50MCG PER HR. VSS. SAS 2-3.
--- NOTE | 2017-02-10 11:28 | PN- Infect Dx ---
Subjective Subjective: Afebrile on steroids. Objective Last 24 Hrs of Vital Signs/I&O Vital Signs Date Time Temp Pulse Resp B/P B/P Pulse O2 O2 Flow FiO2 Mean Ox Delivery Rate 02/10 0836 40 02/10 0800 98.6 76 20 102/60 94 Ventilator 40% 02/10 0800 93 Ventilator 40% 02/10 0556 40 02/10 0553 50 02/10 0405 50 02/10 0401 60 02/10 0400 96 Ventilator 60% 02/10 0154 95 Ventilator 70% 02/10 0154 97.5 86 22 112/68 95 Ventilator 70% 02/10 0120 60 02/10 0115 70 02/09 2240 70 02/09 2000 96 Ventilator 80% 02/09 1930 80 02/09 1604 55 02/09 1530 55 Intake & Output 02/10 1600 02/10 0800 02/10 0000 Intake Total 940 451 Output Total 1425 240 Balance -485 211 Intake, IV 810 331 Intake, Other 130 120 Number 0 Bowel Movements Output, 50 50 Gastric Drainage Output, Urine 1375 190 Patient 193 lb Weight Physical Exam Other Physical Findings: He is sedated/unresponsive on the ventilator Neck right IJ triple-lumen catheter in place Lungs are clear Heart regular rhythm with no murmur Extremities left foot warm with palpable pulse; left groin dressing intact Meyer catheter remains in place Results Last 24 Hours of Lab Results: Laboratory Tests 02/10 02/10 02/10 0855 0400 0105 Chemistry Sodium (137 - 145 mmol/L) 140 Potassium (3.5 - 5.1 mmol/L) 4.0 Chloride (98 - 107 mmol/L) 105 Carbon Dioxide (22 - 30 mmol/L) 31 H Anion Gap (5 - 16) 4 L BUN (9 - 20 mg/dL) 16 Creatinine (0.7 - 1.2 mg/dL) 0.5 L Estimated GFR (>60 ml/min) > 60 Glucose (65 - 99 mg/dL) 141 H Calcium (8.4 - 10.2 mg/dL) 7.3 L Phosphorus (2.5 - 4.5 mg/dL) 1.3 L Magnesium (1.6 - 2.3 mg/dL) 2.3 Total Bilirubin (0.2 - 1.3 mg/dL) 1.0 AST (17 - 59 U/L) 65 H ALT (21 - 72 U/L) 56 Albumin (3.5 - 5.0 g/dL) 2.3 L Coagulation APTT (25 - 37 SEC) 70 H 58 H Hematology CBC w Diff NO MAN DIFF REQ WBC (4.8 - 10.8 /CUMM) 8.4 RBC (4.70 - 6.10 /CUMM) 3.36 L Hgb (14.0 - 18.0 G/DL) 9.0 L Hct (42 - 52 %) 28.1 L MCV (80.0 - 94.0 FL) 83.5 MCH (27.0 - 31.0 PG) 26.7 L RDW (11.5 - 14.5 %) 17.6 H Plt Count (130 - 400 /CUMM) 131 MPV (7.4 - 10.4 FL) 9.2 Gran % (42.2 - 75.2 %) 89.7 H Lymphocytes % (20.5 - 51.1 %) 5.8 L Monocytes % (1.7 - 9.3 %) 4.5 Eosinophils % (0 - 5 %) 0 Basophils % (0.0 - 2.0 %) 0 L Absolute Granulocytes (1.4 - 6.5 /CUMM) 7.5 H Absolute Lymphocytes (1.2 - 3.4 /CUMM) 0.5 L Absolute Monocytes (0.10 - 0.60 /CUMM) 0.4 Absolute Eosinophils (0.0 - 0.7 /CUMM) 0 Absolute Basophils (0.0 - 0.2 /CUMM) 0 PUBS MCHC (33.0 - 37.0 G/DL) 32.0 L Immunology Heparin-induced Plt Ab Cancelled Heparin-PF4 AB OD Cancelled 02/09 02/09 02/09 2125 1800 1700 Chemistry Sodium (137 - 145 mmol/L) 138 Potassium (3.5 - 5.1 mmol/L) 3.2 L Chloride (98 - 107 mmol/L) 104 Carbon Dioxide (22 - 30 mmol/L) 31 H Anion Gap (5 - 16) 3 L BUN (9 - 20 mg/dL) 15 Creatinine (0.7 - 1.2 mg/dL) 0.4 L Estimated GFR (>60 ml/min) > 60 Glucose (65 - 99 mg/dL) 145 H Calcium (8.4 - 10.2 mg/dL) 7.3 L Phosphorus (2.5 - 4.5 mg/dL) 1.8 L Magnesium (1.6 - 2.3 mg/dL) 2.2 Total Bilirubin (0.2 - 1.3 mg/dL) 1.4 H AST (17 - 59 U/L) 69 H ALT (21 - 72 U/L) 48 Troponin I (<0.11 ng/ml) 3.00 *H Albumin (3.5 - 5.0 g/dL) 2.2 L Coagulation APTT Cancelled Hematology CBC w Diff NO MAN DIFF REQ WBC (4.8 - 10.8 /CUMM) 7.6 RBC (4.70 - 6.10 /CUMM) 3.23 L Hgb (14.0 - 18.0 G/DL) 8.8 L Hct (42 - 52 %) 26.7 L MCV (80.0 - 94.0 FL) 82.6 MCH (27.0 - 31.0 PG) 27.1 RDW (11.5 - 14.5 %) 17.3 H Plt Count (130 - 400 /CUMM) 110 L MPV (7.4 - 10.4 FL) 9.2 Gran % (42.2 - 75.2 %) 84.8 H Lymphocytes % (20.5 - 51.1 %) 9.0 L Monocytes % (1.7 - 9.3 %) 6.1 Eosinophils % (0 - 5 %) 0 Basophils % (0.0 - 2.0 %) 0.1 Absolute Granulocytes (1.4 - 6.5 /CUMM) 6.5 Absolute Lymphocytes (1.2 - 3.4 /CUMM) 0.7 L Absolute Monocytes (0.10 - 0.60 /CUMM) 0.5 Absolute Eosinophils (0.0 - 0.7 /CUMM) 0 Absolute Basophils (0.0 - 0.2 /CUMM) 0 PUBS MCHC (33.0 - 37.0 G/DL) 32.8 L 02/09 02/09 02/09 1545 1530 1406 Chemistry Troponin I (<0.11 ng/ml) 3.81 *H Coagulation PT (9.4 - 12.5 SEC) 13.6 H INR (0.90 - 1.17) 1.30 H APTT (25 - 37 SEC) > 120 *H Hematology CBC w Diff NO MAN DIFF REQ WBC (4.8 - 10.8 /CUMM) 7.7 RBC (4.70 - 6.10 /CUMM) 3.12 L Hgb (14.0 - 18.0 G/DL) 8.3 L Hct (42 - 52 %) 26.4 L MCV (80.0 - 94.0 FL) 84.6 MCH (27.0 - 31.0 PG) 26.5 L RDW (11.5 - 14.5 %) 17.9 H Plt Count (130 - 400 /CUMM) 114 L MPV (7.4 - 10.4 FL) 8.8 Gran % (42.2 - 75.2 %) 87.9 H Lymphocytes % (20.5 - 51.1 %) 6.6 L Monocytes % (1.7 - 9.3 %) 4.4 Eosinophils % (0 - 5 %) 0 Basophils % (0.0 - 2.0 %) 1.1 Absolute Granulocytes (1.4 - 6.5 /CUMM) 6.8 H Absolute Lymphocytes (1.2 - 3.4 /CUMM) 0.5 L Absolute Monocytes (0.10 - 0.60 /CUMM) 0.3 Absolute Eosinophils (0.0 - 0.7 /CUMM) 0 Absolute Basophils (0.0 - 0.2 /CUMM) 0.1 PUBS MCHC (33.0 - 37.0 G/DL) 31.4 L 02/09 1220 Blood Gas pH (7.35 - 7.45 PH) 7.36 pCO2 (35 - 45 TORR) 49 H pO2 (80 - 100 TORR) 250 H HCO3 (21 - 28 MEQ/L) 27 ABG O2 Sat (Measured) (>96.0 %) 99.0 P-50 (Temp Corrected) N Carboxyhemoglobin (1.5 - 5.0 %) 1.3 L O2 Concentration % 100% O2 Delivery Method OR VENT Miscellaneous Phlebotomy Draw Site A-LINE Last 24 Hours of Rahat Results: Blood cultures February 08 negative Sputum culture February 08 light growth of mixed francisco with scant growth of yeast Recent Imaging Studies: Chest x-ray February 10 reveals decreased interstitial markings bilaterally Assessment/Plan Impression: Overall improved with decreased oxygen requirements and decreased markings on chest x-ray status post left groin cutdown, left leg angiogram, thrombectomy of the popliteal and superficial femoral arteries secondary to an acute thrombus and compartment fasciotomy yesterday. He remains afebrile with white blood cell count normal on steroids and off antibiotics status post perioperative Cefazolin. The etiology of his respiratory failure remains unclear but is felt to be most likely fluid overload, with possible ARDS. Suggestion: 1. Continue to follow off antibiotics pending above
--- NOTE | 2017-02-10 11:57 | RADIOLOGY REPORT ---
EXAMINATION: XR PORTABLE CHEST CLINICAL INFORMATION: Critically ill with hypoxic respiratory failure. COMPARISON: Chest done on 02/09/2017. TECHNIQUE: Portable frontal view of the chest was obtained. FINDINGS: The tip of the endotracheal tube is located approximately 6 cm above the level of the tin. The tip of the enteric tube is not optimally visualized; appears infradiaphragmatic. The right-sided central line is in good position at the cavoatrial junction. The cardiomediastinal silhouette is within normal limits. Previously documented, clinically known diffuse interstitial lung changes and superimposed patchy airspace opacities at both lower lobes are reidentified; however, the alveolar airspace disease appears significantly improved at both lung bases since the prior study. No other significant change. IMPRESSION: Interval improved aeration at both lung bases. Otherwise, no other significant interval change is present.
--- NOTE | 2017-02-10 12:10 | PN- Vascular Surgery ---
Subjective Subjective: Dressing Change LLE fasciotomy dressing removed, scant serosang drainage on ABDs directly over incisions, wound edges clean without necrosis, muscle red/pink and clean, some bloody drainage from both sites- more from medial incision, +DP signal, foot warm. Objective Vital Signs and I&Os Vital Signs Date Time Temp Pulse Resp B/P B/P Pulse O2 O2 Flow FiO2 Mean Ox Delivery Rate 02/10 1124 40 02/10 0836 40 02/10 0800 98.6 76 20 102/60 94 Ventilator 40% 02/10 0800 93 Ventilator 40% 02/10 0556 40 02/10 0553 50 02/10 0405 50 02/10 0401 60 02/10 0400 96 Ventilator 60% 02/10 0154 95 Ventilator 70% 02/10 0154 97.5 86 22 112/68 95 Ventilator 70% 02/10 0120 60 02/10 0115 70 02/09 2240 70 02/09 2000 96 Ventilator 80% 02/09 1930 80 02/09 1604 55 02/09 1530 55 Intake & Output 02/10 1600 02/10 0800 02/10 0000 02/09 1600 02/09 0800 02/09 0000 Intake Total 940 451 685 947 Output Total 3813 842 5252 835 Balance -485 211 -735 112 Intake, IV 810 331 635 897 Intake, Oral 0 Intake, Other 130 120 50 50 Number 0 Bowel Movements Output, 50 50 100 50 Gastric Drainage Output, Urine 9026 [phone] Patient 193 lb Weight Assessment/Plan Assessment/Plan POD#1 sp LLE fasciotomy/thrombectomy, improved perfusion with warm left foot and DP signal. Continue daily dressing changes
--- NOTE | 2017-02-10 14:00 | NUR ---
PT DESATED TO 89 ON 40 % FIO2, 86% WHILE TURNING. CRACKLES HEARD THROUGHOUT, RT TO BEDSIDE TO EVALUATE. FIO2 INCREASED TO 45%. DISCUSSED WITH DR DELGADO. LASIX 80MG IVP GIVEN EARLY PER MD. O2 SATS IMPROVED TO 95%.
--- NOTE | 2017-02-10 15:00 | PN- Cardiology ---
Subjective Subjective: * Patient is intubated and sedated. * left foot is now warm and pink. * sinus rhythm with resolution of ST elevations * cardiac troponin is trending down * potassium 4.0 Objective Vital Signs and I&Os Vital Signs Date Time Temp Pulse Resp B/P B/P Pulse O2 O2 Flow FiO2 Mean Ox Delivery Rate 02/10 1340 45 02/10 1124 40 02/10 0836 40 02/10 0800 98.6 76 20 102/60 94 Ventilator 40% 02/10 0800 93 Ventilator 40% 02/10 0556 40 02/10 0553 50 02/10 0405 50 02/10 0401 60 02/10 0400 96 Ventilator 60% 02/10 0154 95 Ventilator 70% 02/10 0154 97.5 86 22 112/68 95 Ventilator 70% 02/10 0120 60 02/10 0115 70 02/09 2240 70 02/09 2000 96 Ventilator 80% 02/09 1930 80 02/09 1604 55 02/09 1530 55 Intake & Output 02/10 1600 02/10 0800 02/10 0000 02/09 1600 02/09 0800 02/09 0000 Intake Total 940 451 685 947 Output Total 2791 814 5304 835 Balance -485 211 -735 112 Intake, IV 810 331 635 897 Intake, Oral 0 Intake, Other 130 120 50 50 Number 0 Bowel Movements Output, 50 50 100 50 Gastric Drainage Output, Urine 5572 402 0337 785 Patient 193 lb Weight Physical Exam: General: WD/WN male. Intubated and sedated. Heart: RRR w/o murmur Lungs: clear bilaterally Extremities: no edema, feet are warm bilaterally Assessment/Plan Assessment/Plan * Cardiac enzymes are coming down and the patient is hemodynamically stable with improved ECG. He tolerated surgery for his arterial thrombosis well. Continue to diurese with Lasix as tolerated by blood pressure. Continue potassium supplementation while on Lasix. Chest X-ray is improving. * Anemia is improved following transfusion. * This patient will need an eventual cardiac catheterization but he is not stable for this procedure at this time. Continue NTG, aspirin and statin. Continue telemetry? Yes
--- NOTE | 2017-02-10 15:32 | Operative Report ---
Operative/Inv Procedure Report Surgery Date: 02/09/17 Name of Procedure: Left groin cutdown Left leg angiogram Left popliteal and SFA thrombectomy Left leg 4 compartment fasciotomy Pre-Operative Diagnosis: acute left lower extremity ischemia Post-Operative Diagnosis: same Estimated Blood Loss: 50ml to 100ml Surgeon/Medical Laboratory Scientist: MEMO VALENZUELA MD Anesthesia: general endotracheal tube Operative/Procedure Note Note: Patient is a 61-year-old gentleman who has been treated with Coumadin for lower extremity DVT. He presented to [facility] with GI bleed. Anticoagulation was held. Operative endoscopy did not show any evidence of active bleeding. The patient was transfused about 4 units of packed red blood cells and subsequently developed respiratory failure. An IVC filter was placed by interventional radiology. Then the medical team noticed left leg coolness and discoloration. Apparently, the patient had palpable dorsalis pedis bilaterally. However, he lost his left DP pulse as well as signals. He was able to move his toes and sensation were intact. Subsequently, he developed worsening respiratory failure and was intubated. He then developed ST elevation SD. Dr. Partida from cardiology thought that this was due to demand ischemia. The next day, there patient's left leg worsened and became cold. By now he was intubated. After discussion with the ICU attending and Dr. Partida from cardiology, it was deemed okay for the patient to go to the OR for left leg angiogram and possible thrombectomy. I had an extensive discussion with the patient's daughter regarding possible complications including but not limited to bleeding, infection, heart attack, need for re-intervention and . An informed consent was obtained. Patient was taken to the operating room and placed supine on table. After satisfactory induction of anesthesia, the patient was prepped and draped in standard surgical fashion. Using a 15 blade, a longitudinal incision was made over the course of the left common femoral artery which was palpable. The incision was carried down through the subcutaneous tissue and fascia using electrocautery. Once I got close to the artery, sharp dissection continued with Metzenbaum scissors. There was fair amount of scar tissue which most likely signified prior intervention from puncture from previous angiograms. The common femoral, proximal SFA and profunda femoris were sharply dissected. Vessel loops were loosely placed around these vessels for control. The patient was started on heparin drip and continue the heparin drip in the OR. After proximal distal and profunda controls were obtained, a micropuncture needle was not entered into the common femoral artery. A micropuncture wire was then advanced into the needle and it preferentially Traveling into the profunda. Then a more distal puncture site was chosen just above the profunda femoris. Now, the profunda femoris was clamped aorta to prevent the wire to go into the profunda. The micropuncture wire was then entered into the SFA. The needle was exchanged with a micropuncture sheath. Then a [place] wire was advanced into the SFA under direct fluoroscopic guidance. Then a 5 Ecuadorean sheath was entered into the artery. An angiogram performed from the sheath showed complete thrombosis of the SFA. Then the aid of V 18 I was advanced and placed into the distal profunda under direct fluoroscopic guidance. A #3 [id number] Aristides balloon was advanced over the wire and placed into the popliteal artery. The balloon was inflated and the balloon was retracted. On the puncture site of the sheath, a small incision was made in a transverse fashion using 11 blade. As the Aristides balloon catheter was brought back into the sheath both sheath and the balloon was pulled back and firm up of clot was expressed. Unfortunately, the balloon was punctured ultimately due to severe disease of the artery. Another #3 Aristides balloon over the wire was placed and more clot was expressed but this balloon also ruptured due to atherosclerotic disease of the SFA. Then I used the #4 Aristides balloon over the wire and more clot was expressed. This but also ruptured. We did not have anymore #4 over the wire Aristides balloon. Therefore I used a regular #4 Aristides balloon him placed into the popliteal artery. This balloon was retracted and large amount of clot was expressed. By now, there was decent backflow. Then left leg angiogram through the sheath showed patent SFA with diffuse moderate disease as well as patent popliteal. There was 1 vessel runoff to the foot which was anterior tibial artery. Hemostasis was obtained. The then the groin was closed in 4 layers with Vicryl suture. The skin was then closed with qi. Then the 4 compartment fasciotomy was performed. Hemostasis was obtained. Both the fasciotomy sites and the groin area was dressed with sterile dressing. The count at the end the case was correct. The patient tolerated the procedure well and was taken to the PACU in stable condition.
[2017-02-10 16:00] VITALS: BP 102/60
--- NOTE | 2017-02-10 16:44 | PN- Vascular Surgery ---
Surgical Brief Attending Note Brief Attending Note: Postoperative day 1 from left leg thrombectomy and angiogram. Platelet count is increased. There is a left dorsalis pedis signal. The left foot is warm and pink. There is no hematoma in the left groin. The dressing is intact. Continue once a day dressing changes on the left leg fasciotomy. We will most likely be able to close the fasciotomy at bedside the next couple of days. Continue with anticoagulation
[2017-02-10 17:49] LABS: ABSOLUTE BASOPHIL COUNT 0 /CUMM (0.0-0.2); ABSOLUTE EOSINOPHIL COUNT 0 /CUMM (0.0-0.7); ABSOLUTE GRANULOCYTE CT 6.5 /CUMM (1.4-6.5); ABSOLUTE LYMPH COUNT 0.5 /CUMM (1.2-3.4); ABSOLUTE MONOCYTE COUNT 0.4 /CUMM (0.10-0.60); BASOPHIL % 0 % (0.0-2.0); EOSINOPHIL % 0.1 % (0-5); HEMATOCRIT 27.6 % (42-52); MEAN CORPUSCULAR HGB 26.7 PG (27.0-31.0); MEAN CORPUSCULAR HGB CONC 32.3 G/DL (33.0-37.0); MEAN CORPUSCULAR VOLUME 82.9 FL (80.0-94.0); MEAN PLATELET VOLUME 9.4 FL (7.4-10.4); PLATELET COUNT 131 /CUMM (130-400); RBC DISTRIBUTION WIDTH 17.4 % (11.5-14.5); RED BLOOD CELL CT 3.34 /CUMM (4.70-6.10); WHITE BLOOD CELL COUNT 7.3 /CUMM (4.8-10.8)
[2017-02-10 17:51] LABS: GRANULOCYTE % 88.5 % (42.2-75.2)
--- NOTE | 2017-02-10 18:06 | NUR ---
PT SBP 88-100'S. TURNED ATIVAN AND FENTANYL GTTS DOWN AND HELD NITRO PATCH. CURRENTLY PT SBP 100.
[2017-02-10 22:03] LABS: PTT 78 SEC (25-37)
[2017-02-11] VITALS: BP 100/72
[2017-02-11 04:00] VITALS: BP 100/72; BP 104/64
[2017-02-11 04:59] LABS: ABSOLUTE BASOPHIL COUNT 0 /CUMM (0.0-0.2); ABSOLUTE EOSINOPHIL COUNT 0 /CUMM (0.0-0.7); ABSOLUTE GRANULOCYTE CT 7.4 /CUMM (1.4-6.5); ABSOLUTE LYMPH COUNT 0.6 /CUMM (1.2-3.4); ABSOLUTE MONOCYTE COUNT 0.5 /CUMM (0.10-0.60); BASOPHIL % 0 % (0.0-2.0); EOSINOPHIL % 0 % (0-5); GRANULOCYTE % 86.8 % (42.2-75.2); MEAN CORPUSCULAR HGB 27.2 PG (27.0-31.0); MEAN CORPUSCULAR HGB CONC 32.4 G/DL (33.0-37.0); MEAN CORPUSCULAR VOLUME 83.9 FL (80.0-94.0); MEAN PLATELET VOLUME 10.2 FL (7.4-10.4); PLATELET COUNT 133 /CUMM (130-400); RBC DISTRIBUTION WIDTH 18.1 % (11.5-14.5); RED BLOOD CELL CT 3.33 /CUMM (4.70-6.10); WHITE BLOOD CELL COUNT 8.6 /CUMM (4.8-10.8)
--- NOTE | 2017-02-11 06:42 | PN- General Surgery ---
Subjective Subjective: INTUBATED SEDATED NO MAJOR VASCULAR EVENTS OVERNIGHT Objective Vital Signs and I&Os Vital Signs Date Time Temp Pulse Resp B/P B/P Pulse O2 O2 Flow FiO2 Mean Ox Delivery Rate 02/11 0613 45 02/11 0400 96 Ventilator 45% 02/11 0400 97.7 70 18 104/64 96 Ventilator 45% 02/11 0329 45 02/11 0054 45 0518 0000 97.4 72 18 100/72 96 Ventilator 45% 02/11 0000 98 Ventilator 45% 02/10 2237 45 02/10 2000 98 Ventilator 45% 02/10 1925 45 02/10 1610 45 02/10 1600 98.0 71 18 102/60 96 Ventilator 45% 02/10 1600 94 Ventilator 45% 02/10 1340 45 02/10 1200 91 Ventilator 40% 02/10 1124 40 02/10 0836 40 02/10 0800 98.6 76 20 102/60 94 Ventilator 40% 02/10 0800 93 Ventilator 40% Intake & Output 02/11 0800 05 0000 02/10 1600 02/10 0800 02/10 0000 02/09 1600 Intake Total 1020 1110 800 940 451 Output Total 901 315 9896 1425 240 Balance 370 560 -775 -485 211 Intake, IV 507 548 665 810 331 Intake, Other 120 130 120 Intake, Tube 173 112 15 Feeding Intake, Tube 340 450 Irrigant Number 0 0 Bowel Movements Output, 50 50 Gastric Drainage Output, Urine 033 735 4752 1375 190 Patient 193 lb Weight Physical Exam: LEFT LE: DRSG CHANGED FASCIOTOMY WOUND CLEAN WITHOUT EXUDATE OR DRAINAGE +LEFT LE DP DOPPLER PULSE CALF SOFT NO GROIN HEMATOMA Assessment/Plan Assessment/Plan VASCULAR STABLE WILL D/W ATTENDING LEFT LEG WOUND CLOSURE
--- NOTE | 2017-02-11 06:52 | RADIOLOGY REPORT ---
EXAMINATION: CHEST 1 VIEW CLINICAL INFORMATION: Respiratory failure. COMPARISON: Multiple prior exams are reviewed. The most recent is from 02/10/2017. TECHNIQUE: An AP view of the chest is provided. FINDINGS: The cardiac silhouette is stable. The endotracheal tube tip is approximately 7 cm above the tin. The enteric tube is in unchanged position. A right central venous line is in place. The tip terminates near the SVC/right atrial junction. The mediastinal and hilar contours are unremarkable. There are neither pleural effusions nor pneumothoraces. There is mild hazy airspace disease, possibly atelectasis, at the left lung base. The osseous structures are unremarkable. IMPRESSION: Endotracheal tube and enteric tube in place. Left lower lobe airspace disease.
--- NOTE | 2017-02-11 06:56 | PN- Resident CRCU ---
See Addendum Subjective HPI/CRCU Issues: Patient seen and examined at bedside this AM. He is doing well and continues on mechanical ventilation for respiratory support. He remained afebrile overnight and continues to have palpable left dorsalis pedis pulse with warm left lower extremity. He remains slightly negative as his input for the last 24 hours was around 2085 cc and his output was 2775 cc. 24 Hour Events: information and referral director: NSR without overnight events. Vital signs last 24 hours: T 97.4-98.6, HR 68-98, RR 18-20, BP 100-118/51-64, O2 93-96% on AV ventilation with RR 18, TV 550, FiO2 45% and 5 PEEP. Total intake: 2085 cc Total output: 2775 Objective Vital Signs & I&O Last 8 Hrs of Vitals and I&O: T 97.4-98.6, HR 68-98, RR 18-20, BP 100-118/51-64, O2 93-96% on AV ventilation with RR 18, TV 550, FiO2 45% and 5 PEEP. Exam General Appearance: well developed/nourished, no apparent distress, sedated, intubated Head: atraumatic, normal appearance Ears, Nose, Throat: normal pharynx Neck: normal inspection, No JVD Respiratory: no respiratory distress, quiet respiration, Improved aeration of bilateral lungs Cardiovascular: regular rate/rhythm Gastrointestinal: normal bowel sounds, soft, non-tender Extremities: LLE warm and pink with + doppler and palpable pulse. Calf soft and dressing changed today. Cranial Nerves: No facial asymmetry appreciated Skin: normal color, warm/dry Nutrition Nutrition: tube feeding Current Medications: Current Medications Sig/Lillie Start time Last Medication Dose Route Stop Time Status Admin Acetaminophen 650 MG Q6P PRN 02/03 2000 AC 02/07 PO 1136 Acetaminophen 1,000 MG Q6P PRN 02/03 2000 AC IV Albuterol Sulfate 3 ML EVERY 4 HRS/AWAKE 02/07 1200 AC 02/11 INH 0836 Albuterol Sulfate 2 PUF Q4-6 PRN PRN 02/03 0645 AC 02/04 INH 2320 Aspirin 81 MG DAILY 02/08 1609 AC 02/10 PO 0915 Budesonide/ 2 PUF BID 02/03 1000 AC 02/11 Formoterol Fumarate INH 0839 Fentanyl Citrate 1,000 MCG Q24H 02/10 0830 AC 02/10 Dextrose/Water 250 ML IV 0910 Folic Acid 1 MG DAILY 02/07 1000 AC 02/10 PO 0910 Furosemide 80 MG Q8 02/09 0730 AC 02/11 IV 0602 Gabapentin 300 MG Q8 02/03 0620 AC 02/11 PO 0602 Heparin Sodium 25,000 UNIT Q24H / 1330 AC 02/10 (Porcine) IV 2042 Sodium Chloride 500 ML Lorazepam 50 MG Q12H 02/09 0600 AC 02/10 Dextrose/Water 500 ML IV 1657 Magnesium Oxide 400 MG BID 02/06 1000 AC 02/10 PO 0910 Methylprednisolone 40 MG DAILY 02/11 1000 CAN IV 02/15 1001 Methylprednisolone 40 MG Q12 02/10 2200 AC 02/10 IV 2106 Methylprednisolone 40 MG Q12 02/10 1000 DC 02/10 IV 1039 Methylprednisolone 40 MG Q6 02/05 2359 DC 02/10 IV 0615 Metoprolol Tartrate 12.5 MG BID 02/10 2200 CAN PO Multivitamins 1 TAB DAILY 02/07 1000 AC 02/10 PO 0910 Nitroglycerin 0.5 GM Q6 02/08 1800 AC 02/11 TOP 0602 Pantoprazole Sodium 40 MG DAILY 02/09 1000 AC 02/10 IV 0916 Phosphate 500 MG PC AND AT BEDTIME 02/10 0230 AC 02/10 PO 2106 Potassium Chloride 20 MEQ ONCE ONE 02/11 0730 DC 02/11 IV 02/11 0731 0725 Potassium Chloride 10 MEQ Q1H 02/11 0700 DC IV 02/11 0801 Potassium Chloride 20 MEQ Q1H 02/10 1915 DC 02/10 IV 02/11 2016 204 Potassium Chloride 40 MEQ DAILY 02/09 1000 AC 02/10 PO 0915 Pravastatin Sodium 40 MG 1700 02/04 1700 AC 02/10 PO 1652 Propofol 1,000 MG Q24H 02/08 1345 AC 02/10 N/A 100 ML IV 0014 Thiamine HCl 50 MG DAILY 02/07 1000 AC 02/10 PO 0911 Tiotropium Mascot 1 PUF DAILY 02/05 1208 AC 02/08 INH 1045 Impression/Plan Impression/Problem List Impression: Mr. Flores is a pleasant 61 year old male with PMH asthma, dyslipidemia, alcohol abuse, previous alcohol withdrawl seizure, and DVT x 2 (2014, August 2016) currently on coumadin who presented with chief complaint of several episodes of coffe-ground emesis and dark, tarry stools without overt blood/ clots. Associated symptoms at time of presentation included easy bleeding/ brusing of his extremities and dyspnea on exertion. Of note, patient was started on anticoagulation with his second episode of DVT in August of 2016. He was inadvertently placed on both xarelto by his PCP and Coumadin by Dr. De Santiago, vascular surgery, until 1-2 weeks later when this was noted and his PCP discontinued Xarelto. In the ED: Vital signs showed a Tmax of 994. HR 117, RR 22, BP 99/54 and O2 saturation of 99% on room air. Labs were significant for H&H 5.3/16.7, Plt 259, Na 131, K 4.1, HCO3 16, Cre 0.6 , Ca 8, Albumin 2.5, INR >10. EKG showed sinus tachycardia and no significant ST/T wave changes. Patient is currently admitted to the ICU and the following is the management: 1. Acute blood loss anemia secondary to GI bleed in the setting of supratherapeutic INR * GI consult placed and appreciated, continue to follow recommendations * Continue to hold coumadin, no further bleeding has been noted * Patient is s/p EGD which was grossly normal, no active bleeding * Patient will require colonoscopy likely as an outpatient after discharge * CBC now stable after 6 units prbcs total, 2 U given in the OR during thrombectomy and fasciotomy * INR now subtherapeutic after 4 units FFP, patient s/p IVC filter placement with IR * Patient continued on heparin drip for therapeutic PTT due to concerns for ST changes/LLE thrombosis * IV protonix daily * Strict Is/Os 2. Elevated troponins * Troponins peaked at 4.[address] elevations, currently EKG improving and troponins trending down * Heparin drip continued * Cardio consult placed and appreciated, continue to follow recomendations * NTG paste 1/2 inch, aspirin, statin * Echocardiogram shows normal EF at 60%, trace MR, mild-mod TR, moderate pulm HTN * Patient will likely require cardiac cath after discharge and once stable from a respiratory standpoint 3. Alcohol abuse * CIWA scoring discontinued as patient only scoring 0 * Alcohol cessation information and counseling provided * Continue MV, thiamine, folate 4. History of DVT with non-palpable pedal pulses * Bilateral lower extremity venous dopplers showed extensive left lower extremity near occlusive DVT, no RLE DVT * Hold coumadin; Patient now s/p IVC filter placement and will continue heparin * Patient POD#2 from fasciotomy with LLE thrombectomy with vascular surgery and now LLE has improved warmth/color/dopplerable pulse * Continue daily dressing changes * Continue to follow vascular recommendations * Daily dressing changes of left fasciotomy site which will likely be closed in next few days 5. Acute respiratory distress in setting of likely underlying COPD * Consideration for fluid overload in the setting of frequent transfusions vs ARDS * Continue mechanical ventilation for now, f/u daily CXR * ID consult appreciated, recommends watching off antibiotics and following up repeat blood cultures (NGTD) * If patient deteriorates, will cover empirically with IV vanco and ceftaz * IV lasix boluses 80 mg Q8 as recommended by cardio; aggressive diuresis to maintain negative fluid balance * Titrate down FiO2 to maintain sat >92% * Propofol discontinued yesterday, ativan discontinued today; continue fentanyl drip * Solumedrol Q12 today, consider decreasing to daily tomorrow * Of note, echo also shows moderate pulmonary HTN 6. Chronic pain * Continue neurontin 300 mg PO Q8 * PO tylenol for mild pain, IV tylenol for moderate pain * Fentanyl drip 7. Dietary * Nutrition consult appreciated * Started tube feeds with Jevity, tolerating well FULL CODE DVTP: Heparin IV Tube Feeds Mild-moderate pain pathway Problem List: 1. Acute respiratory distress 2. GI bleed 3. DVT (deep venous thrombosis) 4. H/O fasciotomy Pain Ratin Tomorrow's Labs & Rationales: CBC (blood loss anemia) ICU bundle (Hypokalemia in setting of aggressive diuresis) Plan DVT/Prophylaxis: mechanical (no pharm 2/2 acute blood loss)
[2017-02-11 08:00] VITALS: BP 110/51
--- NOTE | 2017-02-11 08:45 | NUR ---
PT REMAINS INTUBATED AND SEDATED. SAS OF 2. VSS. ATIVAN DECREASED TO 1MG/ HR AND FENTANYL CONTINUED AT 25 MCG /HR. LEVEL OF SEDATION DISCUSSED WITH DR JC.
[2017-02-11 10:18] LABS: PTT 82 SEC (25-37)
--- NOTE | 2017-02-11 11:45 | NUR ---
PT OFF OF ATIVAN PER DR DUMONT. SAS 2, PERRL, REACTS TO SUCTIONING. MODERATE AMT OF MESA/YELLOW TINGE THIN SECRETIONS. ALL DRESSINGS CHANGED. ? DTI TO LEFT BUTTOCKS. PT PLACED ON SPECIALTY MATTRESS.
--- NOTE | 2017-02-11 12:52 | RADIOLOGY REPORT ---
EXAMINATION: XR PORTABLE CHEST CLINICAL INFORMATION: Endotracheal tube positioning COMPARISON: Chest x-ray most recent prior dated 02/11/2017 TECHNIQUE: Portable frontal view of the chest was obtained. FINDINGS: Interval advancement of the endotracheal tube which now terminates approximately 1.8 cm above the tin nasogastric tube can only be followed up to mid to distal esophagus. Evaluation more distally is limited due to technique. Right-sided internal jugular catheter with the tip in the right atrium inferior to the caval atrial junction Stable hazy prominence of the interstitial markings suspicious for mild interstitial edema. Streaky atelectasis right base. Retrocardiac opacity noted again compatible with basilar infiltrate or atelectasis. IMPRESSION: 1. Endotracheal tube terminates approximately 1.8 cm above the tin. Recommend approximately 1 cm retraction. 2. Mild pulmonary edema. 3. Stable opacity left base retrocardiac region compatible with infiltrate or atelectasis. Stable linear atelectasis right base. Findings were discussed with Dr. Castano at 12:45 PM on 02/11/2017.
[2017-02-11 16:00] VITALS: BP 106/52
[2017-02-11 22:12] LABS: PTT 80 SEC (25-37)
--- NOTE | 2017-02-11 22:21 | PN- Cardiology ---
Subjective Subjective: * Patient remains intubated and sedated. * sinus rhythm * improved chest X-ray * stable H/H Objective Vital Signs and I&Os Vital Signs Date Time Temp Pulse Resp B/P B/P Pulse O2 O2 Flow FiO2 Mean Ox Delivery Rate 02/11 1923 40 / 1645 40 02/11 1600 90 Ventilator 40% 02/11 1600 98.5 78 18 106/52 93 Ventilator 40% 02/11 1407 40 02/11 1200 93 Ventilator 40% 02/11 1154 40 02/11 0855 45 02/11 0800 94 Ventilator 40% 02/11 0800 77.0 77 18 110/51 94 Ventilator 45% 02/11 0613 45 02/11 0400 96 Ventilator 45% 02/11 0400 97.7 70 18 104/64 96 Ventilator 45% 02/11 0329 45 02/11 0054 45 02/11 0000 97.4 72 18 100/72 96 Ventilator 45% 02/11 0000 98 Ventilator 45% 02/10 2237 45 Intake & Output 02/11 1600 02/11 0800 05/18 0000 02/10 1600 02/10 0800 02/10 0000 Intake Total 1208 1020 1110 800 940 451 Output Total 900 448 442 8365 1425 240 Balance 308 370 560 -775 -485 211 Intake, IV 448 507 548 665 810 331 Intake, Oral 760 Intake, Other 120 130 120 Intake, Tube 173 112 15 Feeding Intake, Tube 340 450 Irrigant Number 0 0 0 Bowel Movements Output, 50 50 Gastric Drainage Output, Urine 900 893 213 7596 1375 190 Patient 193 lb Weight Physical Exam: General: WD/WN male. Intubated and sedated. Heart: RRR w/o murmur Lungs: clear bilaterally Extremities: no edema, feet are warm bilaterally Assessment/Plan Assessment/Plan * Patient is hemodynamically stable in a sinus rhythm. No arrhythmias and cardiac enzymes have trended down. He tolerated surgery for his arterial thrombosis well. Lungs are clearing. Continue to diurese with Lasix as tolerated by blood pressure. Continue potassium supplementation while on Lasix. * Anemia is improved following transfusion. * This patient will need an eventual cardiac catheterization but he is not stable for this procedure at this time. Continue NTG, aspirin and statin. Continue telemetry? Yes
[2017-02-12] VITALS: BP 112/60
[2017-02-12 05:05] LABS: ABSOLUTE BASOPHIL COUNT 0 /CUMM (0.0-0.2); ABSOLUTE EOSINOPHIL COUNT 0 /CUMM (0.0-0.7); ABSOLUTE GRANULOCYTE CT 10.7 /CUMM (1.4-6.5); ABSOLUTE LYMPH COUNT 0.6 /CUMM (1.2-3.4); ABSOLUTE MONOCYTE COUNT 0.7 /CUMM (0.10-0.60); BASOPHIL % 0.1 % (0.0-2.0); EOSINOPHIL % 0 % (0-5); GRANULOCYTE % 89.3 % (42.2-75.2); HEMATOCRIT 29.9 % (42-52); MEAN CORPUSCULAR HGB CONC 31.9 G/DL (33.0-37.0); MEAN CORPUSCULAR VOLUME 84.4 FL (80.0-94.0); MEAN PLATELET VOLUME 9.6 FL (7.4-10.4); PLATELET COUNT 149 /CUMM (130-400); RBC DISTRIBUTION WIDTH 18.4 % (11.5-14.5); RED BLOOD CELL CT 3.54 /CUMM (4.70-6.10); WHITE BLOOD CELL COUNT 11.9 /CUMM (4.8-10.8)
--- NOTE | 2017-02-12 05:42 | PN- Vascular Surgery ---
See Addendum Subjective Subjective: The patient was seen this morning postoperatively day #3. He remains intubated and sedated. Per nursing staff there are no significant issues overnight. Objective Vital Signs and I&Os Vital Signs Date Time Temp Pulse Resp B/P B/P Pulse O2 O2 Flow FiO2 Mean Ox Delivery Rate 02/12 0355 40 / 0202 40 05/ 0000 94 Ventilator 40% 02/12 0000 98.4 86 14 112/60 92 Ventilator 40% 02/11 2223 40 05/ 2200 95 Ventilator 40% 02/11 1923 40 05/18 1645 40 05/18 1600 90 Ventilator 40% 05/18 1600 98.5 78 18 106/52 93 Ventilator 40% / 1407 40 / 1200 93 Ventilator 40% 02/11 1154 40 02/11 0855 45 / 0800 94 Ventilator 40% / 0800 77.0 77 18 110/51 94 Ventilator 45% 02/11 0613 45 Intake & Output 02/12 0800 02/12 0000 05/ 1600 02/11 0800 02/11 0000 05/ 1600 Intake Total 898 1208 1020 1110 800 Output Total 1180 900 270 066 6995 Balance -282 308 370 560 -775 Intake, IV 283 448 507 548 665 Intake, Oral 760 Intake, Other 140 120 Intake, Tube 305 173 112 15 Feeding Intake, Tube 170 340 450 Irrigant Number 0 0 0 Bowel Movements Output, Urine [phone] Patient 193 lb Weight Physical Exam: Gen.: Intubated and sedated Skin: Warm and dry Extremities: Left lower extremity remains warm without significant edema. The groin is dry without signs of hematoma. Surgical fasciotomy incisions remained clean, dry, and intact without signs of infection. There remains a dopplerable dorsalis pedis signal. Right lower extremity is warm without significant edema. Lateral calves are soft. Assessment/Plan Assessment/Plan Assessment: 61-year-old male status post left lower extremity thrombectomy and fasciotomy for arterial occlusion postoperative day #3. Vascular standpoint the patient's wounds are healing well and the leg appears adequately perfused. Recommendations: Continue heparin for the current time Daily dressing changes to fasciotomies Morning laboratory studies GI And DVT prophylaxis Continue care per primary team in various consultation recommendations
--- NOTE | 2017-02-12 06:35 | RADIOLOGY REPORT ---
EXAMINATION: CHEST 1 VIEW CLINICAL INFORMATION: Respiratory failure. Intubated. COMPARISON: Multiple prior exams are reviewed. The most recent is from 02/11/2017. TECHNIQUE: An AP view of the chest is provided. FINDINGS: The cardiac silhouette is stable. The endotracheal tube, enteric tube and right central venous line are in unchanged position. The mediastinal and hilar contours are unremarkable. There are neither pleural effusions nor pneumothoraces. There is mild nonspecific interstitial prominence present throughout both lungs. There are no consolidations. The osseous structures are unremarkable. IMPRESSION: Lines and tubes in place as stated above. Mild nonspecific interstitial prominence present throughout both lungs.
--- NOTE | 2017-02-12 07:37 | PN- Resident CRCU ---
Subjective HPI/CRCU Issues: Patient seen and examined at bedside this AM. He remains on fentanyl drip at 25 mcg and is non-arousable. He is maintaining a good O2 saturation on AC ventilation and FiO2 decreased to 40%. Patient has not had a bowel movement in 6 days thus laxatives ordered. 24 Hour Events: No telemetry events in the last 24 hours. Vital signs last 24 hours: T 97.3-98.9, HR 76-90, RR 14-22, BP 91-123/48-69, O2 90-97% on AC RR 14 TV 550 FiO2 40% 5 PEEP. Total intake last 24 hours: 3199 cc Total output last 24 hours: 3730 cc Objective Vital Signs & I&O Last 8 Hrs of Vitals and I&O: T 97.3-98.9, HR 76-90, RR 14-22, BP 91-123/48-69, O2 90-97% on AC RR 14 TV 550 FiO2 40% 5 PEEP. Exam General Appearance: well developed/nourished, no apparent distress, comfortable, sedated, intubated Head: atraumatic, normal appearance Ears, Nose, Throat: normal pharynx Neck: normal inspection, No JVD Respiratory: normal breath sounds, chest non-tender, no respiratory distress Cardiovascular: regular rate/rhythm Gastrointestinal: normal bowel sounds, soft, non-tender Extremities: normal inspection, normal capillary refill, no edema Cranial Nerves: PERRL Skin: normal color, warm/dry Nutrition Nutrition: tube feeding Current Medications: Current Medications Sig/Lillie Start time Last Medication Dose Route Stop Time Status Admin Acetaminophen 650 MG Q6P PRN 02/03 2000 AC 02/07 PO 1136 Acetaminophen 1,000 MG Q6P PRN 02/03 2000 AC IV Albuterol Sulfate 3 ML EVERY 4 HRS/AWAKE 02/07 1200 AC 02/12 INH 1216 Albuterol Sulfate 2 PUF Q4-6 PRN PRN 02/03 0645 AC 02/04 INH 2320 Aspirin 81 MG DAILY 02/08 1609 AC 02/12 PO 0851 Budesonide/ 2 PUF BID 02/03 1000 AC 02/12 Formoterol Fumarate INH 1042 Fentanyl Citrate 1,000 MCG Q24H 02/10 0830 AC 02/12 Dextrose/Water 250 ML IV 1126 Folic Acid 1 MG DAILY 02/07 1000 AC 02/12 PO 0851 Furosemide 80 MG Q8 02/09 0730 AC 02/12 IV 0608 Gabapentin 300 MG Q8 02/03 0620 AC 02/12 PO 0609 Heparin Sodium 25,000 UNIT Q16H 02/11 1230 AC 02/12 (Porcine) IV 0611 Sodium Chloride 500 ML Lidocaine 20 ML ONCE ONE 02/12 1145 DC ID 02/12 1146 Magnesium Oxide 400 MG BID 02/06 1000 AC 02/12 PO 0850 Methylprednisolone 40 MG DAILY 02/13 1000 AC IV Methylprednisolone 40 MG Q12 02/10 2200 DC 02/12 IV 0850 Multivitamins 1 TAB DAILY 02/07 1000 AC 02/12 PO 0851 Nitroglycerin 0.5 GM Q6 02/08 1800 AC 02/12 TOP 1159 Pantoprazole Sodium 40 MG DAILY 02/09 1000 AC 02/12 IV 0850 Phosphate 500 MG PC AND AT BEDTIME 02/10 0230 AC 02/12 PO 0850 Polyethylene Glycol 17 GM DAILY 02/12 1047 AC 02/12 PO 1125 Potassium Chloride 10 MEQ Q1H 02/12 0700 DC 02/12 IV 02/12 0801 0850 Potassium Chloride 40 MEQ DAILY 02/09 1000 AC 02/12 PO 0851 Pravastatin Sodium 40 MG 1700 / 1700 AC 02/11 PO 1710 Senna 187 MG AT BEDTIME PRN 02/12 1100 AC 02/12 PO 1125 Thiamine HCl 50 MG DAILY 02/07 1000 AC 02/12 PO 0850 Tiotropium [place] 1 PUF DAILY 02/05 1208 AC 02/08 INH 1045 CXR Findings: IMPRESSION: Lines and tubes in place as stated above. Mild nonspecific interstitial prominence present throughout both lungs. Impression/Plan Impression/Problem List Impression: Mr. Flores is a pleasant 61 year old male with PMH asthma, dyslipidemia, alcohol abuse, previous alcohol withdrawl seizure, and DVT x 2 (2014, August 2016) currently on coumadin who presented with chief complaint of several episodes of coffe-ground emesis and dark, tarry stools without overt blood/ clots. Associated symptoms at time of presentation included easy bleeding/ brusing of his extremities and dyspnea on exertion. Of note, patient was started on anticoagulation with his second episode of DVT in August of 2016. He was inadvertently placed on both xarelto by his PCP and Coumadin by Dr. De Santiago, vascular surgery, until 1-2 weeks later when this was noted and his PCP discontinued Xarelto. In the ED: Vital signs showed a Tmax of 994. HR 117, RR 22, BP 99/54 and O2 saturation of 99% on room air. Labs were significant for H&H 5.3/16.7, Plt 259, Na 131, K 4.1, HCO3 16, Cre 0.6 , Ca 8, Albumin 2.5, INR >10. EKG showed sinus tachycardia and no significant ST/T wave changes. Patient is currently admitted to the ICU and the following is the management: 1. Acute blood loss anemia secondary to GI bleed in the setting of supratherapeutic INR * GI consult placed and appreciated, continue to follow recommendations * Continue to hold coumadin, no further bleeding has been noted * Patient is s/p EGD which was grossly normal, no active bleeding * Patient will require colonoscopy likely as an outpatient after discharge * CBC now stable after 6 units prbcs total, 2 U given in the OR during thrombectomy and fasciotomy * INR now subtherapeutic after 4 units FFP, patient s/p IVC filter placement with IR * Patient continued on heparin drip for therapeutic PTT due to concerns for ST changes/LLE thrombosis * IV protonix daily * Strict Is/Os, continue net negative fluid balance 2. Elevated troponins * Troponins peaked at 4.[address] elevations, currently EKG improving and troponins trending down * Heparin drip continued * Cardio consult placed and appreciated, continue to follow recomendations * NTG paste 1/2 inch, aspirin, statin * Echocardiogram shows normal EF at 60%, trace MR, mild-mod TR, moderate pulm HTN * Patient will likely require cardiac cath after discharge and once stable from a respiratory standpoint 3. Alcohol abuse * CIWA scoring discontinued as patient only scoring 0 * Alcohol cessation information and counseling provided * Continue MV, thiamine, folate 4. History of DVT with non-palpable pedal pulses * Bilateral lower extremity venous dopplers showed extensive left lower extremity near occlusive DVT, no RLE DVT * Hold coumadin; Patient now s/p IVC filter placement and will continue heparin * Patient POD#3 from fasciotomy with LLE thrombectomy with vascular surgery and now LLE has improved warmth/color/dopplerable pulse * Continue daily dressing changes * Continue to follow vascular recommendations * Daily dressing changes of left fasciotomy site which will likely be closed in next few days 5. Acute respiratory distress in setting of likely underlying COPD * Consideration for fluid overload in the setting of frequent transfusions vs ARDS * Continue mechanical ventilation for now, f/u daily CXR * ID consult appreciated, recommends watching off antibiotics and following up repeat blood cultures (NGTD) * If patient deteriorates, will cover empirically with IV vanco and ceftaz * IV lasix boluses 80 mg Q8 as recommended by cardio; aggressive diuresis to maintain negative fluid balance * Titrate down FiO2 to maintain sat >92% * Propofol/ativan discontinued; continue only on fentanyl drip for sedation, titrate down as patient not arousable * CPAP trial when more awake * Solumedrol decreased to daily dosing * Of note, echo also shows moderate pulmonary HTN 6. Chronic pain * Continue neurontin 300 mg PO Q8 * PO tylenol for mild pain, IV tylenol for moderate pain * Fentanyl drip 7. Dietary * Nutrition consult appreciated * Started tube feeds with Jevity, tolerating well FULL CODE DVTP: Heparin IV Tube Feeds Mild-moderate pain pathway Problem List: 1. Acute respiratory distress 2. H/O fasciotomy 3. GI bleed 4. DVT (deep venous thrombosis) 5. Upper respiratory infection Pain Ratin Tomorrow's Labs & Rationales: CBC (leukocytosis) ICU bundle (aggressive diuresis) Plan DVT/Prophylaxis: mechanical (no pharm 2/2 acute blood loss)
[2017-02-12 08:00] VITALS: BP 109/64
[2017-02-12 09:59] LABS: PTT 78 SEC (25-37)
--- NOTE | 2017-02-12 10:23 | PN- Cardiology ---
Subjective Subjective: * Intubated and sedated. * Hemodynamically stable in a NSR * WBC is increased to 11.9 on steroids * stable H/H Objective Vital Signs and I&Os Vital Signs Date Time Temp Pulse Resp B/P B/P Pulse O2 O2 Flow FiO2 Mean Ox Delivery Rate 02/12 0818 40 02/12 0800 94 Ventilator 40% 02/12 0800 98.4 82 16 109/64 94 Ventilator 40% 02/12 0542 40 02/12 0400 94 Ventilator 40% 02/12 0355 40 02/12 0202 40 02/12 0000 94 Ventilator 40% 02/12 0000 98.4 86 14 112/60 92 Ventilator 40% 02/11 2223 40 02/11 2200 95 Ventilator 40% 02/11 1923 40 02/11 1645 40 02/11 1600 90 Ventilator 40% 02/11 1600 98.5 78 18 106/52 93 Ventilator 40% 02/11 1407 40 02/11 1200 93 Ventilator 40% 02/11 1154 40 Intake & Output 02/12 1600 02/12 0800 02/12 0000 02/11 1600 02/11 0800 02/11 0000 Intake Total 1895 681 1226 1020 1110 Output Total 1650 1180 900 650 550 Balance -557 -282 308 370 560 Intake, IV 292 283 448 507 548 Intake, Oral 760 Intake, Other 140 Intake, Tube 461 305 173 112 Feeding Intake, Tube 340 170 340 450 Irrigant Number 0 0 0 Bowel Movements Output, Urine 1650 1180 900 650 550 Physical Exam: General: WD/WN male. Intubated and sedated. Heart: RRR w/o murmur Lungs: clear bilaterally Extremities: no edema, feet are warm bilaterally Assessment/Plan Assessment/Plan * Patient is hemodynamically stable in a sinus rhythm. No arrhythmias and cardiac enzymes have trended down. He tolerated surgery for his arterial thrombosis well. Lungs are clearing but are not normal yet. Continue to diurese with Lasix as tolerated by blood pressure. Continue potassium supplementation while on Lasix. * This patient will need an eventual cardiac catheterization but he is not stable for this procedure at this time. Continue NTG, aspirin and statin. Continue telemetry? Yes
--- NOTE | 2017-02-12 10:30 | PN- CRCU ---
Subjective HPI/Critical Care Issues: pt seen and examined CXR is improved since previous on mechanical ventilation here for GI bleed Objective Current Medications: Current Medications Sig/Lillie Start time Last Medication Dose Route Stop Time Status Admin Acetaminophen 650 MG Q6P PRN 02/03 2000 AC 02/07 PO 1136 Acetaminophen 1,000 MG Q6P PRN 02/03 2000 AC IV Albuterol Sulfate 3 ML EVERY 4 HRS/AWAKE 02/07 1200 AC 02/12 INH 0822 Albuterol Sulfate 2 PUF Q4-6 PRN PRN 02/03 0645 AC 02/04 INH 2320 Aspirin 81 MG DAILY 02/08 1609 AC 02/12 PO 0851 Budesonide/ 2 PUF BID 02/03 1000 AC 02/11 Formoterol Fumarate INH 2110 Fentanyl Citrate 1,000 MCG Q24H 02/10 0830 AC 02/11 Dextrose/Water 250 ML IV 1111 Folic Acid 1 MG DAILY 02/07 1000 AC 02/12 PO 0851 Furosemide 80 MG Q8 02/09 0730 AC 02/12 IV 0608 Gabapentin 300 MG Q8 02/03 0620 AC 02/12 PO 0609 Heparin Sodium 25,000 UNIT Q16H 02/11 1230 AC 02/12 (Porcine) IV 0611 Sodium Chloride 500 ML Heparin Sodium 25,000 UNIT Q24H 02/08 1330 DC 02/10 (Porcine) IV 2042 Sodium Chloride 500 ML Lorazepam 50 MG Q12H 02/09 0600 DC 02/10 Dextrose/Water 500 ML IV 1657 Magnesium Oxide 400 MG BID 02/06 1000 AC 02/12 PO 0850 Methylprednisolone 40 MG Q12 02/10 2200 AC 02/12 IV 0850 Multivitamins 1 TAB DAILY 02/07 1000 AC 02/12 PO 0851 Nitroglycerin 0.5 GM Q6 02/08 1800 AC 02/12 TOP 0609 Pantoprazole Sodium 40 MG DAILY 02/09 1000 AC 02/12 IV 0850 Phosphate 500 MG PC AND AT BEDTIME 02/10 0230 AC 02/12 PO 0850 Potassium Chloride 10 MEQ Q1H 02/12 0700 DC 02/12 IV 02/12 0801 0850 Potassium Chloride 40 MEQ DAILY 02/09 1000 AC 02/12 PO 0851 Pravastatin Sodium 40 MG 1700 02/04 1700 AC 02/11 PO 1710 Propofol 1,000 MG Q24H 02/08 1345 DC 02/10 N/A 100 ML IV 0014 Thiamine HCl 50 MG DAILY 02/07 1000 AC 02/12 PO 0850 Tiotropium [place] 1 PUF DAILY 02/05 1208 AC 02/08 INH 1045 Vital Signs & I&O Last 24 Hrs of Vitals and I&O: Vital Signs Date Time Temp Pulse Resp B/P B/P Pulse O2 O2 Flow FiO2 Mean Ox Delivery Rate 02/12 0818 40 02/12 0800 94 Ventilator 40% 02/12 0800 98.4 82 16 109/64 94 Ventilator 40% 02/12 0542 40 02/12 0400 94 Ventilator 40% 02/12 0355 40 02/12 0202 40 02/12 0000 94 Ventilator 40% 02/12 0000 98.4 86 14 112/60 92 Ventilator 40% 02/11 2223 40 02/11 2200 95 Ventilator 40% 02/11 1923 40 02/11 1645 40 02/11 1600 90 Ventilator 40% 02/11 1600 98.5 78 18 106/52 93 Ventilator 40% 02/11 1407 40 02/11 1200 93 Ventilator 40% 02/11 1154 40 Intake & Output 02/12 1600 02/12 0800 02/12 0000 Intake Total 1093 898 Output Total 1650 1180 Balance -557 -282 Intake, IV 292 283 Intake, Other 140 Intake, Tube 461 305 Feeding Intake, Tube 340 170 Irrigant Number 0 0 Bowel Movements Output, Urine 1650 1180 Exam Other Physical Findings: gen mechanical ventilation heent ett cvs s1, s2 lungs transmitted, rhonci, wheezing abd soft, bs+ ext no edema, LLE dressing intact Results Last 24 Hrs of Lab Results: Laboratory Tests 02/12/17 0930: Urine Color Pending, Urine Clarity Pending, Urine pH Pending, Ur Specific [place] Pending, Urine Protein Pending, Urine Ketones Pending, Urine Nitrite Pending, Urine Bilirubin Pending, Urine Urobilinogen Pending, Ur Leukocyte Esterase Pending, Ur Microscopic Pending, Urine Hemoglobin Pending, Urine Glucose Pending 02/12/17 0900: APTT 78 H 02/12/17 0415: Anion Gap 5, Estimated GFR > 60, Glucose 157 H, Calcium 7.3 L, Phosphorus 3.2, Magnesium 2.3, Total Bilirubin 0.8, AST 57, ALT 60, Albumin 2.5 L, CBC w Diff NO MAN DIFF REQ, RBC 3.54 L, MCV 84.4, MCH 27.0, RDW 18.4 H, MPV 9.6, Gran % 89.3 H, Lymphocytes % 5.1 L, Monocytes % 5.5, Eosinophils % 0, Basophils % 0.1 , Absolute Granulocytes 10.7 H, Absolute Lymphocytes 0.6 L, Absolute Monocytes 0.7 H, Absolute Eosinophils 0, Absolute Basophils 0, PUBS MCHC 31.9 L 02/11/172099: APTT 80 H 02/11/172004: pH 7.47 H, pCO2 41, pO2 84, HCO3 29 H, ABG O2 Sat (Measured) 95.0 L, P-50 ( Temp Corrected) Y, Carboxyhemoglobin 1 L, O2 Concentration % 40, Temperature 98.9, Respiration Rate 14, O2 Delivery Method VENT, Vent Mode CMV, Expiratory Pressure 5, Tidal Volume 550, Phlebotomy Draw Site ANJEL Impression/Plan Impression/Plan Impression/Plan: Impression 61 year old man * acute hypoxemic respiratory failure secondary to fluid overload * coagulopathy secondary to medications * Left lower extremity ischemia, status post left groin cutdown with left leg angiogram and embolectomy with fasciotomy. * STEMI * Recurrent lower extremity DVTs, status post IVC filter. * Acute blood loss anemia - GI bleed stabilized, no evidence of active bleeding at present. Plan Respiratory -on mechanical ventilation -check abg -CXR somewhat improved, still congested -CPAP trial can be planned if remains fluid balance negative and more awake ID -leukocytosis maybe steroid induced -off abx -ID appreciated CVS -net fluid negative goal -continue diuresis -hemodynamically stable Heme -h/h stable -no bleeding at this time -heparin gtt Metabolic -ins/outs, creatinine, monitor electrolytes Alimentary -tube feeds Neuro -reduce sedation, for plan to CPAP trial DVT prophylaxis at all times - currently on heparin gtt - (usually on coumadin) TTS 45 min * Continue with diuresis as recommended by cardiology. * Replete phosphorus. Continue with electrolyte repletion. * Check labs every 12 hours today. * Continue heparin drip for therapeutic PTT. * Attempt to wean propofol off today. * Continue Ativan drip for an SAS of 3. * Begin fentanyl drip at 25 g per hour, adjust for appropriate pain control. * Continue TR for nebulizer treatments. * Decrease Solumedrol to q 12 hours. * Nutrition consult for tube feeds. Please start today. * Continue MVI/thiamine/folate. * IV Protonix. * Continue Vent bundle q shift. * Follow up recommendations from vascular surgery regarding the loss of dopplerable left lower extremity pulse. We will continue with warm compresses and q 1 hour monitoring. * Continue all current support.
--- NOTE | 2017-02-12 10:58 | PN- Infect Dx ---
Subjective Subjective: Afebrile on steroids Objective Last 24 Hrs of Vital Signs/I&O Vital Signs Date Time Temp Pulse Resp B/P B/P Pulse O2 O2 Flow FiO2 Mean Ox Delivery Rate 02/12 0818 40 02/12 0800 94 Ventilator 40% 02/12 0800 98.4 82 16 109/64 94 Ventilator 40% 02/12 0542 40 02/12 0400 94 Ventilator 40% 02/12 0355 40 02/12 0202 40 02/12 0000 94 Ventilator 40% 02/12 0000 98.4 86 14 112/60 92 Ventilator 40% 02/11 2223 40 02/11 2200 95 Ventilator 40% 02/11 1923 40 02/11 1645 40 02/11 1600 90 Ventilator 40% 02/11 1600 98.5 78 18 106/52 93 Ventilator 40% 02/11 1407 40 02/11 1200 93 Ventilator 40% 02/11 1154 40 Intake & Output 02/12 1600 02/12 0800 05 0000 Intake Total 1093 898 Output Total 1650 1180 Balance -557 -282 Intake, IV 292 283 Intake, Other 140 Intake, Tube 461 305 Feeding Intake, Tube 340 170 Irrigant Number 0 0 Bowel Movements Output, Urine 1650 1180 Physical Exam Other Physical Findings: He remains sedated, with minimal response to pain Neck right IJ triple-lumen catheter with no inflammation at the site Lungs bilateral rhonchi Heart regular rhythm with no murmur Extremities left foot well perfused; left leg dressing intact Meyer catheter remains in place Results Last 24 Hours of Lab Results: Laboratory Tests 02/12 02/12 02/12 1045 0930 0900 Blood Gas pH Pending pCO2 Pending pO2 Pending HCO3 Pending ABG O2 Sat (Measured) Pending P-50 (Temp Corrected) Pending Carboxyhemoglobin Pending O2 Concentration % Pending Temperature Pending Respiration Rate Pending O2 Delivery Method Pending Vent Mode Pending Expiratory Pressure Pending Tidal Volume Pending Pressure Support Pending Coagulation APTT (25 - 37 SEC) 78 H Miscellaneous Phlebotomy Draw Site Pending Urines Urine Color (YEL,AMB,STR) YEL Urine Clarity (CLEAR) CLEAR Urine pH (5.0 - 8.0) 7.0 Ur Specific [place] (1.001 - 1.035) 1.010 Urine Protein (NEG,<30 MG/DL) NEG Urine Ketones (NEG) NEG Urine Nitrite (NEG) NEG Urine Bilirubin (NEG) NEG Urine Urobilinogen (0.1 - 1.0 EU/dl) >=8.0 H Ur Leukocyte Esterase (NEG) NEG Ur Microscopic EXAM NOT REQUIRED Urine Hemoglobin (NEG) NEG Urine Glucose (N MG/DL) NEG 02/12 02/11 02/11 3215 2099 2004 Blood Gas pH (7.35 - 7.45 PH) 7.47 H pCO2 (35 - 45 TORR) 41 pO2 (80 - 100 TORR) 84 HCO3 (21 - 28 MEQ/L) 29 H ABG O2 Sat (Measured) (>96.0 %) 95.0 L P-50 (Temp Corrected) Y Carboxyhemoglobin (1.5 - 5.0 %) 1 L O2 Concentration % 40 Temperature (97.0 - 100.0 FARH) 98.9 Respiration Rate (BPM) 14 O2 Delivery Method VENT Vent Mode CMV Expiratory Pressure (CMH2O/P) 5 Tidal Volume (CC) 550 Chemistry Sodium (137 - 145 mmol/L) 139 Potassium (3.5 - 5.1 mmol/L) 3.7 Chloride (98 - 107 mmol/L) 104 Carbon Dioxide (22 - 30 mmol/L) 31 H Anion Gap (5 - 16) 5 BUN (9 - 20 mg/dL) 21 H Creatinine (0.7 - 1.2 mg/dL) 0.4 L Estimated GFR (>60 ml/min) > 60 Glucose (65 - 99 mg/dL) 157 H Calcium (8.4 - 10.2 mg/dL) 7.3 L Phosphorus (2.5 - 4.5 mg/dL) 3.2 Magnesium (1.6 - 2.3 mg/dL) 2.3 Total Bilirubin (0.2 - 1.3 mg/dL) 0.8 AST (17 - 59 U/L) 57 ALT (21 - 72 U/L) 60 Albumin (3.5 - 5.0 g/dL) 2.5 L Coagulation APTT (25 - 37 SEC) 80 H Hematology CBC w Diff NO MAN DIFF REQ WBC (4.8 - 10.8 /CUMM) 11.9 H RBC (4.70 - 6.10 /CUMM) 3.54 L Hgb (14.0 - 18.0 G/DL) 9.5 L Hct (42 - 52 %) 29.9 L MCV (80.0 - 94.0 FL) 84.4 MCH (27.0 - 31.0 PG) 27.0 RDW (11.5 - 14.5 %) 18.4 H Plt Count (130 - 400 /CUMM) 149 MPV (7.4 - 10.4 FL) 9.6 Gran % (42.2 - 75.2 %) 89.3 H Lymphocytes % (20.5 - 51.1 %) 5.1 L Monocytes % (1.7 - 9.3 %) 5.5 Eosinophils % (0 - 5 %) 0 Basophils % (0.0 - 2.0 %) 0.1 Absolute Granulocytes (1.4 - 6.5 /CUMM) 10.7 H Absolute Lymphocytes (1.2 - 3.4 /CUMM) 0.6 L Absolute Monocytes (0.10 - 0.60 /CUMM) 0.7 H Absolute Eosinophils (0.0 - 0.7 /CUMM) 0 Absolute Basophils (0.0 - 0.2 /CUMM) 0 PUBS MCHC (33.0 - 37.0 G/DL) 31.9 L Miscellaneous Phlebotomy Draw Site ANJEL Last 24 Hours of Rahat Results: No recent cultures Recent Imaging Studies: Chest x-ray February 12, personally reviewed, reveals mild nonspecific interstitial prominence, markedly improved from previous x-rays Assessment/Plan Impression: Overall improved with decreased oxygen requirements and decreased markings on chest x-ray status post left groin cutdown, left leg angiogram, thrombectomy of the popliteal and superficial femoral arteries secondary to an acute thrombus and compartment fasciotomy 3 days ago. He remains afebrile with white blood cell count mildly elevated today, likely secondary to the steroids, but otherwise stable off antibiotics. Suggestion: 1. Continue to follow off antibiotics
--- NOTE | 2017-02-12 14:39 | NUR ---
SURGICAL PA IN ROOM WITH PT AT PRESENT. PA STITCHED LLE FASCIOTOMY SITE CLOSED AT BEDSIDE AND APPLIED DRY DRESSING WITH XEROFORM TO AREA, WILL CONT TO MON
--- NOTE | 2017-02-12 14:50 | NUR ---
Wound Care Assessment: Patient presents with a stage 1 pressure injury to the left buttock measuring 2.5 X 2.5cm, area is completely intact but is red and non blanchable- a darkened area is noted to the center that is a darker red in color. Patient was placed on a catergory 2 mattress while in the ICU. He is s/p a thrombectomy with four compartment fasciotomy on 02/09/17 and was intubated prior to surgery. He currently remains intubated on the ICU on tube feeds. Impression: Stage 1 pressure injury to the left buttock- Recommendations: Continue use of catergory 2 mattress. Follow nutrition recommendations. Encourage frequent turning and repositioning. Please monitor wound every shift for any further breakdown or discoloration to wound. Follow all additional pressure injury guidelines.
[2017-02-12 16:00] VITALS: BP 112/64
--- NOTE | 2017-02-12 18:43 | PN- Vascular Surgery ---
Subjective Subjective: Pt intubated and sedated. Objective Vital Signs and I&Os Vital Signs Date Time Temp Pulse Resp B/P B/P Pulse O2 O2 Flow FiO2 Mean Ox Delivery Rate 02/12 1630 40 02/12 1600 94 Ventilator 40% 02/12 1600 98.9 90 18 112/64 94 Ventilator 40% 02/12 1337 40 02/12 1200 94 Ventilator 40% 02/12 1129 40 02/12 0818 40 02/12 0800 94 Ventilator 40% 02/12 0800 98.4 82 16 109/64 94 Ventilator 40% 02/12 0542 40 02/12 0400 94 Ventilator 40% 02/12 0355 40 02/12 0202 40 02/12 0000 94 Ventilator 40% 02/12 0000 98.4 86 14 112/60 92 Ventilator 40% 02/11 2223 40 02/11 2200 95 Ventilator 40% 02/11 1923 40 Intake & Output 02/12 1600 02/12 0800 02/12 0000 02/11 1600 02/11 0800 02/11 0000 Intake Total 1528 9155 171 8945 1020 1110 Output Total 1650 1650 1180 900 650 550 Balance -122 -557 -282 308 370 560 Intake, IV 468 292 283 448 507 548 Intake, Oral 0 760 Intake, Other 140 Intake, Tube 520 461 305 173 112 Feeding Intake, Tube 540 340 170 340 450 Irrigant Number 0 0 0 Bowel Movements Output, Urine 1650 1650 1180 900 650 550 Physical Exam General Appearance: sedated, intubated Peripheral Pulses: 2+ dorsalis pedis (R), 0 dorsalis pedis (L) ((+) doppler signal L DP) Current Medications: Current Medications Sig/Lillie Start time Last Medication Dose Route Stop Time Status Admin Acetaminophen 650 MG Q6P PRN 02/03 2000 AC 02/07 PO 1136 Acetaminophen 1,000 MG Q6P PRN 02/03 2000 AC IV Albuterol Sulfate 3 ML EVERY 4 HRS/AWAKE 02/07 1200 AC 02/12 INH 1700 Albuterol Sulfate 2 PUF Q4-6 PRN PRN 02/03 0645 AC 02/04 INH 2320 Aspirin 81 MG DAILY 02/08 1609 AC 02/12 PO 0851 Budesonide/ 2 PUF BID 02/03 1000 AC 02/12 Formoterol Fumarate INH 1042 Fentanyl Citrate 1,000 MCG Q24H 02/10 0830 AC 02/12 Dextrose/Water 250 ML IV 1126 Folic Acid 1 MG DAILY 02/07 1000 AC 02/12 PO 0851 Furosemide 80 MG Q8 02/09 0730 AC 02/12 IV 1424 Gabapentin 300 MG Q8 02/03 0620 AC 02/12 PO 1308 Heparin Sodium 25,000 UNIT Q16H 02/11 1230 AC 02/12 (Porcine) IV 0611 Sodium Chloride 500 ML Lidocaine 20 ML ONCE ONE 02/12 1145 DC 02/12 ID 02/12 1146 1418 Magnesium Oxide 400 MG BID 02/06 1000 AC 02/12 PO 0850 Methylprednisolone 40 MG DAILY 02/13 1000 AC IV Methylprednisolone 40 MG Q12 02/10 2200 DC 02/12 IV 0850 Multivitamins 1 TAB DAILY 02/07 1000 AC 02/12 PO 0851 Nitroglycerin 0.5 GM Q6 02/08 1800 AC 02/12 TOP 1754 Pantoprazole Sodium 40 MG DAILY 02/09 1000 AC 02/12 IV 0850 Phosphate 500 MG PC AND AT BEDTIME 02/10 0230 AC 02/12 PO 1742 Polyethylene Glycol 17 GM DAILY 02/12 1047 AC 02/12 PO 1125 Potassium Chloride 10 MEQ Q1H 02/12 0700 DC 02/12 IV 02/12 0801 0850 Potassium Chloride 40 MEQ DAILY 02/09 1000 AC 02/12 PO 0851 Pravastatin Sodium 40 MG 1700 02/04 1700 AC 02/12 PO 1741 Senna 187 MG AT BEDTIME PRN 02/12 1100 AC 02/12 PO 1125 Thiamine HCl 50 MG DAILY 02/07 1000 AC 02/12 PO 0850 Tiotropium Scenic 1 PUF DAILY 02/05 1208 AC 02/08 INH 1045 Results Last 48 Hours of Labs: Laboratory Tests 02/12 02/12 02/12 1045 0930 0900 Blood Gas pH (7.35 - 7.45 PH) 7.50 H pCO2 (35 - 45 TORR) 38 pO2 (80 - 100 TORR) 75 L HCO3 (21 - 28 MEQ/L) 29 H ABG O2 Sat (Measured) (>96.0 %) 95.0 L P-50 (Temp Corrected) N Carboxyhemoglobin (1.5 - 5.0 %) 0.9 L O2 Concentration % 40% Temperature (97.0 - 100.0 FARH) 98.4 Respiration Rate (BPM) 14 O2 Delivery Method VENT Vent Mode VC-AC Expiratory Pressure (CMH2O/P) 5 Tidal Volume (CC) 550 Coagulation APTT (25 - 37 SEC) 78 H Miscellaneous Phlebotomy Draw Site A-LINE Urines Urine Color (YEL,AMB,STR) YEL Urine Clarity (CLEAR) CLEAR Urine pH (5.0 - 8.0) 7.0 Ur Specific [place] (1.001 - 1.035) 1.010 Urine Protein (NEG,<30 MG/DL) NEG Urine Ketones (NEG) NEG Urine Nitrite (NEG) NEG Urine Bilirubin (NEG) NEG Urine Urobilinogen (0.1 - 1.0 EU/dl) >=8.0 H Ur Leukocyte Esterase (NEG) NEG Ur Microscopic EXAM NOT REQUIRED Urine Hemoglobin (NEG) NEG Urine Glucose (N MG/DL) NEG 02/12 02/11 02/11 02/11 0415 2100 2004 0920 Blood Gas pH (7.35 - 7.45 PH) 7.47 H pCO2 (35 - 45 TORR) 41 pO2 (80 - 100 TORR) 84 HCO3 (21 - 28 MEQ/L) 29 H ABG O2 Sat (Measured) (>96.0 %) 95.0 L P-50 (Temp Corrected) Y Carboxyhemoglobin (1.5 - 5.0 %) 1 L O2 Concentration % 40 Temperature (97.0 - 100.0 FARH) 98.9 Respiration Rate (BPM) 14 O2 Delivery Method VENT Vent Mode CMV Expiratory Pressure (CMH2O/P) 5 Tidal Volume (CC) 550 Chemistry Sodium (137 - 145 mmol/L) 139 Potassium (3.5 - 5.1 mmol/L) 3.7 Chloride (98 - 107 mmol/L) 104 Carbon Dioxide (22 - 30 mmol/L) 31 H Anion Gap (5 - 16) 5 BUN (9 - 20 mg/dL) 21 H Creatinine (0.7 - 1.2 mg/dL) 0.4 L Estimated GFR (>60 ml/min) > 60 Glucose (65 - 99 mg/dL) 157 H Calcium (8.4 - 10.2 mg/dL) 7.3 L Phosphorus (2.5 - 4.5 mg/dL) 3.2 Magnesium (1.6 - 2.3 mg/dL) 2.3 Total Bilirubin (0.2 - 1.3 mg/dL) 0.8 AST (17 - 59 U/L) 57 ALT (21 - 72 U/L) 60 Albumin (3.5 - 5.0 g/dL) 2.5 L Coagulation APTT (25 - 37 SEC) 80 H 82 H Hematology CBC w Diff NO MAN DIFF REQ WBC (4.8 - 10.8 /CUMM) 11.9 H RBC (4.70 - 6.10 /CUMM) 3.54 L Hgb (14.0 - 18.0 G/DL) 9.5 L Hct (42 - 52 %) 29.9 L MCV (80.0 - 94.0 FL) 84.4 MCH (27.0 - 31.0 PG) 27.0 RDW (11.5 - 14.5 %) 18.4 H Plt Count (130 - 400 /CUMM) 149 MPV (7.4 - 10.4 FL) 9.6 Gran % (42.2 - 75.2 %) 89.3 H Lymphocytes % (20.5 - 51.1 %) 5.1 L Monocytes % (1.7 - 9.3 %) 5.5 Eosinophils % (0 - 5 %) 0 Basophils % (0.0 - 2.0 %) 0.1 Absolute Granulocytes (1.4 - 6.5 /CUMM) 10.7 H Absolute Lymphocytes (1.2 - 3.4 /CUMM) 0.6 L Absolute Monocytes (0.10 - 0.60 /CUMM) 0.7 H Absolute Eosinophils (0.0 - 0.7 /CUMM) 0 Absolute Basophils (0.0 - 0.2 /CUMM) 0 PUBS MCHC (33.0 - 37.0 G/DL) 31.9 L Miscellaneous Phlebotomy Draw Site [facility] 02/11 02/11 02/11 02/10 0515 2525 1689 5359 Blood Gas pH (7.35 - 7.45 PH) 7.52 H pCO2 (35 - 45 TORR) 38 pO2 (80 - 100 TORR) 79 L HCO3 (21 - 28 MEQ/L) 30 H ABG O2 Sat (Measured) (>96.0 %) 96.0 P-50 (Temp Corrected) Y Carboxyhemoglobin (1.5 - 5.0 %) 0.3 L O2 Concentration % 45% Temperature (97.0 - 100.0 FARH) 97.7 Respiration Rate (BPM) 18 O2 Delivery Method ESPRIT Vent Mode AC Expiratory Pressure (CMH2O/P) 5 Tidal Volume (CC) 550 Chemistry Sodium (137 - 145 mmol/L) 139 Potassium (3.5 - 5.1 mmol/L) 3.7 Chloride (98 - 107 mmol/L) 103 Carbon Dioxide (22 - 30 mmol/L) 32 H Anion Gap (5 - 16) 4 L BUN (9 - 20 mg/dL) 22 H Creatinine (0.7 - 1.2 mg/dL) 0.5 L Estimated GFR (>60 ml/min) > 60 Glucose (65 - 99 mg/dL) 163 H Calcium (8.4 - 10.2 mg/dL) 7.2 L Phosphorus (2.5 - 4.5 mg/dL) 2.8 Magnesium (1.6 - 2.3 mg/dL) 2.3 Total Bilirubin (0.2 - 1.3 mg/dL) 0.8 AST (17 - 59 U/L) 65 H ALT (21 - 72 U/L) 49 Albumin (3.5 - 5.0 g/dL) 2.3 L Coagulation APTT (25 - 37 SEC) 78 H Hematology CBC w Diff NO MAN DIFF REQ WBC (4.8 - 10.8 /CUMM) 8.6 RBC (4.70 - 6.10 /CUMM) 3.33 L Hgb (14.0 - 18.0 G/DL) 9.1 L Hct (42 - 52 %) 28.0 L MCV (80.0 - 94.0 FL) 83.9 MCH (27.0 - 31.0 PG) 27.2 RDW (11.5 - 14.5 %) 18.1 H Plt Count (130 - 400 /CUMM) 133 MPV (7.4 - 10.4 FL) 10.2 Gran % (42.2 - 75.2 %) 86.8 H Lymphocytes % (20.5 - 51.1 %) 7.0 L Monocytes % (1.7 - 9.3 %) 6.2 Eosinophils % (0 - 5 %) 0 Basophils % (0.0 - 2.0 %) 0 L Absolute Granulocytes (1.4 - 6.5 /CUMM) 7.4 H Absolute Lymphocytes (1.2 - 3.4 /CUMM) 0.6 L Absolute Monocytes (0.10 - 0.60 /CUMM) 0.5 Absolute Eosinophils (0.0 - 0.7 /CUMM) 0 Absolute Basophils (0.0 - 0.2 /CUMM) 0 PUBS MCHC (33.0 - 37.0 G/DL) 32.4 L Miscellaneous Phlebotomy Draw Site ANJEL Assessment/Plan Assessment/Plan 61 YO with recent acutely ischemic LLE. Fasciotomy incisions are clean and dry, sutures in place. Both feet are warm and well perfused. Strong signal in L DP, no signal in PT. Palpable R DP. Continue daily dressing change to LLE incisions. Core Measures/Miscellaneous Venous Thromboembolism VTE Risk Factors: Acute medical illness VTE Contraindications: No Contraindications VTE Diagnosis: No VTE Type: NONE VTE Confirmed by (Test): NONE Beta Juan Is Beta Juan a Home Med? No Antibiotics Is Patient on Antibiotics? No
[2017-02-12 21:57] LABS: PTT 74 SEC (25-37)
[2017-02-13] VITALS: BP 124/74
[2017-02-13 05:57] LABS: ABSOLUTE BASOPHIL COUNT 0 /CUMM (0.0-0.2); ABSOLUTE EOSINOPHIL COUNT 0.2 /CUMM (0.0-0.7); ABSOLUTE GRANULOCYTE CT 10.9 /CUMM (1.4-6.5); ABSOLUTE LYMPH COUNT 1.6 /CUMM (1.2-3.4); BASOPHIL % 0.1 % (0.0-2.0); EOSINOPHIL % 1.5 % (0-5); GRANULOCYTE % 79.4 % (42.2-75.2); HEMATOCRIT 30.7 % (42-52); MEAN CORPUSCULAR HGB CONC 32.1 G/DL (33.0-37.0); MEAN CORPUSCULAR VOLUME 84.2 FL (80.0-94.0); MEAN PLATELET VOLUME 9.6 FL (7.4-10.4); PLATELET COUNT 151 /CUMM (130-400); RBC DISTRIBUTION WIDTH 19.1 % (11.5-14.5); RED BLOOD CELL CT 3.65 /CUMM (4.70-6.10); WHITE BLOOD CELL COUNT 13.7 /CUMM (4.8-10.8)
[2017-02-13 08:00] VITALS: BP 109/46
--- NOTE | 2017-02-13 08:27 | PN- Vascular Surgery ---
Subjective Subjective: s/p LLE thrombectomy/fasciotomies Pt remains intubated/sedated Objective Vital Signs and I&Os Vital Signs Date Time Temp Pulse Resp B/P B/P Pulse O2 O2 Flow FiO2 Mean Ox Delivery Rate 02/13 0613 40 02/13 0407 40 02/13 0400 95 Ventilator 40% 02/13 0100 40 02/13 0000 98.9 95 21 124/74 94 Ventilator 40% 02/13 0000 95 Ventilator 40% 02/12 2247 40 02/12 2000 95 Ventilator 40% 02/12 1950 40 02/12 1630 40 02/12 1600 94 Ventilator 40% 02/12 1600 98.9 90 18 112/64 94 Ventilator 40% 02/12 1337 40 02/12 1200 94 Ventilator 40% 02/12 1129 40 Intake & Output 02/13 1600 02/13 0800 02/13 0000 02/12 1600 02/12 0800 02/12 0000 Intake Total 1153 1448 1528 1093 898 Output Total 1500 2400 1650 1650 1180 Balance -347 -952 -122 -557 -282 Intake, IV 265 288 468 292 283 Intake, Oral 0 Intake, Other 300 140 Intake, Tube 518 520 520 461 305 Feeding Intake, Tube 370 340 540 340 170 Irrigant Number 1 1 0 0 Bowel Movements Output, Urine 1500 2400 1650 1650 1180 Physical Exam: LLE: dressings changed, Wounds lookd good, sutures in place, No drainage, No erythema Foot is warm, 1+ edema, dopplerable DP/no PT RLE: warm, 1+ edema, palpable DP Assessment/Plan Assessment/Plan 61 YO with recent acutely ischemic LLE. Fasciotomy incisions look good and both feet are warm with +blood flow Continue daily dressing change to LLE incisions.
--- NOTE | 2017-02-13 09:15 | RADIOLOGY REPORT ---
EXAMINATION: CHEST 1 VIEW CLINICAL INFORMATION: Intubated. COMPARISON: Multiple prior exams are reviewed. The most recent is from 02/12/2017. TECHNIQUE: An AP view of the chest is provided. FINDINGS: The cardiac silhouette is not enlarged. The endotracheal tube, enteric tube and right central venous line are in unchanged position. The mediastinal and hilar contours are unremarkable. There are neither pleural effusions nor pneumothoraces. There is mild atelectasis at the left lung base. The osseous structures are unremarkable. IMPRESSION: Lines and tubes in place as stated above. Mild atelectasis at the left lung base.
[2017-02-13 10:14] LABS: PTT 71 SEC (25-37)
--- NOTE | 2017-02-13 10:15 | PN- Resident CRCU ---
Subjective HPI/CRCU Issues: Patient was seen and examined this morning, remains intubated, sedated with fentanyl drip. No overnight events reported by the nurse. 24 Hour Events: Mechanical ventilator A/C, 550, 14, 5, 40% saturating 97% Temperature 98.8, MAXIMUM TEMPERATURE 99.5 Heart rate lowest 82, highest 100 sinus rhythm Blood pressure lowest 104/46, highest 156/54 Intake 4129, output 5550 Fentanyl drip, heparin drip, IV fluid running NS at 100 mL per hour Objective Vital Signs & I&O Last 8 Hrs of Vitals and I&O: 111 Exam General Appearance: sedated, intubated Head: atraumatic, normal appearance Ears, Nose, Throat: normal ENT inspection Neck: normal inspection, supple, full range of motion Respiratory: chest non-tender Cardiovascular: regular rate/rhythm Gastrointestinal: normal bowel sounds, soft, non-tender Extremities: normal inspection, normal capillary refill, normal range of motion, no edema Cranial Nerves: PERRL Current Medications: Current Medications Sig/Lillie Start time Last Medication Dose Route Stop Time Status Admin Acetaminophen 650 MG Q6P PRN 02/03 2000 AC 02/07 PO 1136 Acetaminophen 1,000 MG Q6P PRN 02/03 2000 AC 02/13 IV 0832 Albuterol Sulfate 3 ML EVERY 4 HRS/AWAKE 02/07 1200 AC 02/13 INH 1157 Albuterol Sulfate 2 PUF Q4-6 PRN PRN 02/03 06 AC 02/04 INH 2320 Aspirin 81 MG DAILY 02/08 1609 AC 02/13 PO 0917 Budesonide/ 2 PUF BID 02/03 1000 AC 02/13 Formoterol Fumarate INH 1118 Fentanyl Citrate 1,000 MCG Q24H 02/10 0830 DC 02/12 Dextrose/Water 250 ML IV 2100 Folic Acid 1 MG DAILY 02/07 1000 AC 02/13 PO 0917 Furosemide 40 MG ONCE ONE 02/13 0745 DC 02/13 IV 02/13 0746 0832 Furosemide 40 MG ONCE ONE 02/13 0530 DC 02/13 IV 02/13 0531 0523 Furosemide 80 MG Q8 02/09 0730 AC 02/12 IV 2112 Gabapentin 300 MG Q8 02/03 0620 AC 02/13 PO 0523 Heparin Sodium 25,000 UNIT Q16H 02/11 1230 AC 02/12 (Porcine) IV 2100 Sodium Chloride 500 ML Magnesium Oxide 400 MG BID 02/06 1000 AC 02/13 PO 0917 Methylprednisolone 40 MG DAILY 02/13 1000 AC 02/13 IV 0917 Multivitamins 1 TAB DAILY 02/07 1000 AC 02/13 PO 0917 Nitroglycerin 0.5 GM Q6 02/08 1800 AC 02/13 TOP 1144 Pantoprazole Sodium 40 MG DAILY 02/09 1000 AC 02/13 IV 0917 Phosphate 250 MG ONCE ONE 02/13 1030 DC 02/13 PO 02/13 1031 1242 Phosphate 500 MG PC AND AT BEDTIME 02/10 0230 AC 02/13 PO 1242 Polyethylene Glycol 17 GM DAILY 02/12 1047 AC 02/13 PO 0917 Potassium Chloride 10 MEQ Q1H 02/13 1030 DC 02/13 IV 02/13 1131 1116 Potassium Chloride 40 MEQ DAILY 02/09 1000 AC 02/13 PO 0917 Pravastatin Sodium 40 MG 1700 02/04 1700 AC 02/12 PO 1741 Senna 187 MG AT BEDTIME PRN 02/12 1100 AC 02/12 PO 1125 Thiamine HCl 50 MG DAILY 02/07 1000 AC 02/13 PO 0917 Tiotropium [place] 1 PUF DAILY 02/05 1208 AC 02/08 INH 1045 Impression/Plan Impression/Problem List Impression: Mr. Flores is a pleasant 61 year old male with PMH asthma, dyslipidemia, alcohol abuse, previous alcohol withdrawl seizure, and DVT x 2 (2014, August 2016) currently on coumadin who presented with chief complaint of several episodes of coffe-ground emesis and dark, tarry stools without overt blood/ clots. Associated symptoms at time of presentation included easy bleeding/ brusing of his extremities and dyspnea on exertion. Of note, patient was started on anticoagulation with his second episode of DVT in August of 2016. He was inadvertently placed on both xarelto by his PCP and Coumadin by Dr. De Santiago, vascular surgery, until 1-2 weeks later when this was noted and his PCP discontinued Xarelto. In the ED: Vital signs showed a Tmax of 994. HR 117, RR 22, BP 99/54 and O2 saturation of 99% on room air. Labs were significant for H&H 5.3/16.7, Plt 259, Na 131, K 4.1, HCO3 16, Cre 0.6 , Ca 8, Albumin 2.5, INR >10. EKG showed sinus tachycardia and no significant ST/T wave changes. Patient is currently admitted to the ICU and the following is the management: 1. Acute blood loss anemia secondary to GI bleed in the setting of supratherapeutic INR * GI consult placed and appreciated, continue to follow recommendations * Continue to hold coumadin, no further bleeding has been noted * Patient is s/p EGD which was grossly normal, no active bleeding * Patient will require colonoscopy likely as an outpatient after discharge * CBC now stable after 6 units prbcs total, 2 U given in the OR during thrombectomy and fasciotomy * INR now subtherapeutic after 4 units FFP, patient s/p IVC filter placement with IR * Patient continued on heparin drip for therapeutic PTT due to concerns for ST changes/LLE thrombosis * IV protonix daily * Strict Is/Os, continue net negative fluid balance 2. Elevated troponins * Troponins peaked at 4.[address] elevations, currently EKG improving and troponins trending down * Heparin drip continued * Cardio consult placed and appreciated, continue to follow recomendations * NTG paste 1/2 inch, aspirin, statin * Echocardiogram shows normal EF at 60%, trace MR, mild-mod TR, moderate pulm HTN * Patient will likely require cardiac cath after discharge and once stable from a respiratory standpoint 3. Alcohol abuse * CIWA scoring discontinued as patient only scoring 0 * Alcohol cessation information and counseling provided * Continue MV, thiamine, folate 4. History of DVT with non-palpable pedal pulses * Bilateral lower extremity venous dopplers showed extensive left lower extremity near occlusive DVT, no RLE DVT * Hold coumadin; Patient now s/p IVC filter placement and will continue heparin * Patient POD#4 from fasciotomy with LLE thrombectomy with vascular surgery and now LLE has improved warmth/color/dopplerable pulse * Continue daily dressing changes * Continue to follow vascular recommendations * Left fasciotomy site was closed up yesterday 02/12 5. Acute respiratory distress in setting of likely underlying COPD * Consideration for fluid overload in the setting of frequent transfusions vs ARDS * Continue mechanical ventilation for now, f/u daily CXR * ID consult appreciated, recommends watching off antibiotics and following up repeat blood cultures (NGTD) * If patient deteriorates, will cover empirically with IV vanco and ceftaz * IV lasix boluses 80 mg Q8 as recommended by cardio; aggressive diuresis to maintain negative fluid balance * Titrate down FiO2 to maintain sat >92% * Propofol/ativan discontinued on 02/12; fentanyl drip was discontinued today , willl monitor for possible CPAP today, if it needs can give single dose of fentanyl * ABG 02/13: PH 7.46, PCO2 42, PaO2 126, bicarbonate 29 * CPAP trial when more awake * Continue Solumedrol 40 mg daily * Of note, echo also shows moderate pulmonary HTN 6. Chronic pain * Continue neurontin 300 mg PO Q8 * PO tylenol for mild pain, IV tylenol for moderate pain * Fentanyl drip off 7. Dietary * Nutrition consult appreciated * Started tube feeds with Jevity, tolerating well FULL CODE DVTP: Heparin IV Tube Feeds Mild-moderate pain pathway Problem List: 1. Acute respiratory distress 2. GI bleed 3. DVT (deep venous thrombosis) 4. Upper respiratory infection Pain Ratin Tomorrow's Labs & Rationales: CBC, ICU bundle, Chest x ray Plan DVT/Prophylaxis: mechanical (no pharm 2/2 acute blood loss)
--- NOTE | 2017-02-13 11:06 | PN- CRCU ---
Subjective HPI/Critical Care Issues: pt seen and examined remains on mechanical ventilation s/p fasciotomy closure AC/550/14/5/40% get abg today Objective Current Medications: Current Medications Sig/Lillie Start time Last Medication Dose Route Stop Time Status Admin Acetaminophen 650 MG Q6P PRN 02/03 2000 AC 02/07 PO 1136 Acetaminophen 1,000 MG Q6P PRN 02/02 2000 AC 02/13 IV 0832 Albuterol Sulfate 3 ML EVERY 4 HRS/AWAKE 02/07 1200 AC 02/13 INH 0741 Albuterol Sulfate 2 PUF Q4-6 PRN PRN 02/03 0645 AC 02/04 INH 2320 Aspirin 81 MG DAILY 02/08 1609 AC 02/13 PO 0917 Budesonide/ 2 PUF BID 02/03 1000 AC 02/12 Formoterol Fumarate INH 2152 Fentanyl Citrate 1,000 MCG Q24H 02/10 0830 AC 02/12 Dextrose/Water 250 ML IV 2100 Folic Acid 1 MG DAILY 02/07 1000 AC 02/13 PO 0917 Furosemide 40 MG ONCE ONE 02/13 0745 DC 02/13 IV 02/13 0746 0832 Furosemide 40 MG ONCE ONE 02/13 0530 DC 02/13 IV 02/13 0531 0523 Furosemide 80 MG Q8 02/09 0730 AC 02/12 IV 2112 Gabapentin 300 MG Q8 02/03 0620 AC 02/13 PO 0523 Heparin Sodium 25,000 UNIT Q16H 02/11 1230 AC 02/12 (Porcine) IV 2100 Sodium Chloride 500 ML Lidocaine 20 ML ONCE ONE 02/12 1145 DC 02/12 ID 02/12 1146 1418 Magnesium Oxide 400 MG BID 02/06 1000 AC 02/13 PO 0917 Methylprednisolone 40 MG DAILY 02/13 1000 AC 02/13 IV 0917 Multivitamins 1 TAB DAILY 02/07 1000 AC 02/13 PO 0917 Nitroglycerin 0.5 GM Q6 02/08 1800 AC 02/13 TOP 0622 Pantoprazole Sodium 40 MG DAILY 02/09 1000 AC 02/13 IV 0917 Phosphate 250 MG ONCE ONE 02/13 1030 DC PO 02/13 1031 Phosphate 500 MG PC AND AT BEDTIME 02/10 0230 AC 02/13 PO 0832 Polyethylene Glycol 17 GM DAILY 02/12 1047 AC 02/13 PO 0917 Potassium Chloride 10 MEQ Q1H 02/13 1030 AC 02/13 IV 02/13 1131 1037 Potassium Chloride 40 MEQ DAILY 02/09 1000 AC 02/13 PO 0917 Pravastatin Sodium 40 MG 1700 02/04 1700 AC 02/12 PO 1741 Senna 187 MG AT BEDTIME PRN 02/12 1100 AC 02/12 PO 1125 Thiamine HCl 50 MG DAILY 02/07 1000 AC 02/13 PO 0917 Tiotropium [place] 1 PUF DAILY 02/05 1208 AC 02/08 INH 1045 Vital Signs & I&O Last 24 Hrs of Vitals and I&O: Vital Signs Date Time Temp Pulse Resp B/P B/P Pulse O2 O2 Flow FiO2 Mean Ox Delivery Rate 02/13 1042 98.7 02/13 0832 100.0 02/13 0800 96 Ventilator 40% 02/13 0800 99.8 99 23 109/46 96 Ventilator 40% 02/13 0745 40 02/13 0613 40 02/13 0407 40 02/13 0400 95 Ventilator 40% 02/13 0100 40 02/13 0000 98.9 95 21 124/74 94 Ventilator 40% 02/13 0000 95 Ventilator 40% 02/12 2247 40 02/12 2000 95 Ventilator 40% 02/12 1950 40 02/12 1630 40 02/12 1600 94 Ventilator 40% 02/12 1600 98.9 90 18 112/64 94 Ventilator 40% 02/12 1337 40 02/12 1200 94 Ventilator 40% 02/12 1129 40 Intake & Output 02/13 1600 02/13 0800 02/13 0000 Intake Total 1153 1448 Output Total 1500 2400 Balance -347 -952 Intake, IV 265 288 Intake, Other 300 Intake, Tube 518 520 Feeding Intake, Tube 370 340 Irrigant Number 1 1 Bowel Movements Output, Urine 1500 2400 Exam Other Physical Findings: gen mechanical ventilation heent ett cvs s1, s2 lungs transmitted, rhonci, wheezing abd soft, bs+ ext no edema, LLE dressing intact Results Last 24 Hrs of Lab Results: Laboratory Tests 02/13/17 0857: APTT 71 H 02/13/17 0400: Anion Gap 5, Estimated GFR > 60, Glucose 99, Calcium 7.7 L, Phosphorus 3.3, Magnesium 2.3, Total Bilirubin 0.8, AST 60 H, ALT 80 H, Albumin 2.6 L, CBC w Diff NO MAN DIFF REQ, RBC 3.65 L, MCV 84.2, MCH 27.0, RDW 19.1 H, MPV 9.6, Gran % 79.4 H, Lymphocytes % 12.0 L, Monocytes % 7.0, Eosinophils % 1.5, Basophils % 0.1, Absolute Granulocytes 10.9 H, Absolute Lymphocytes 1.6, Absolute Monocytes 1.0 H, Absolute Eosinophils 0.2, Absolute Basophils 0, PUBS MCHC 32.1 L 02/12/17 2100: APTT 74 H Impression/Plan Impression/Plan Impression/Plan: Impression 61 year old man * acute hypoxemic respiratory failure secondary to fluid overload and atelectasis * coagulopathy secondary to medications * Left lower extremity ischemia, status post left groin cutdown with left leg angiogram and embolectomy with fasciotomy. * STEMI * Recurrent lower extremity DVTs, status post IVC filter. * Acute blood loss anemia - GI bleed stabilized, no evidence of active bleeding at present. Plan Respiratory -on mechanical ventilation -check abg today -CXR somewhat improved, still congested ID -leukocytosis maybe steroid induced -possibly atelectasis, tmax 100 -off abx -ID appreciated CVS -net fluid negative goal -continue diuresis -hemodynamically stable Heme -h/h stable -no bleeding at this time -heparin gtt Metabolic -ins/outs, creatinine, monitor electrolytes Alimentary -tube feeds Neuro -reduce sedation, for plan to CPAP trial DVT prophylaxis at all times - currently on heparin gtt - (usually on coumadin) TTS 40 min
--- NOTE | 2017-02-13 12:13 | PN- Infect Dx ---
Subjective Subjective: Afebrile on steroids. He remains intubated and sedated Objective Last 24 Hrs of Vital Signs/I&O Vital Signs Date Time Temp Pulse Resp B/P B/P Pulse O2 O2 Flow FiO2 Mean Ox Delivery Rate 02/13 1145 40 02/13 1042 98.7 02/13 0832 100.0 02/13 0800 96 Ventilator 40% 02/13 0800 99.8 99 23 109/46 96 Ventilator 40% 02/13 0745 40 02/13 0613 40 02/13 0407 40 02/13 0400 95 Ventilator 40% 02/13 0100 40 02/13 0000 98.9 95 21 124/74 94 Ventilator 40% 02/13 0000 95 Ventilator 40% 02/12 2247 40 02/12 2000 95 Ventilator 40% 02/12 1950 40 02/12 1630 40 02/12 1600 94 Ventilator 40% 02/12 1600 98.9 90 18 112/64 94 Ventilator 40% 02/12 1337 40 Intake & Output 02/13 1600 02/13 0800 02/13 0000 Intake Total 1153 1448 Output Total 1500 2400 Balance -347 -952 Intake, IV 265 288 Intake, Other 300 Intake, Tube 518 520 Feeding Intake, Tube 370 340 Irrigant Number 1 1 Bowel Movements Output, Urine 1500 2400 Physical Exam Other Physical Findings: He is minimally responsive on the ventilator Neck right IJ triple-lumen catheter with no inflammation at the site Lungs are clear Heart regular rhythm with no murmur Abdomen is soft, nontender with positive bowel sounds Extremities left foot warm; left leg incisions clean Meyer catheter remains in place Results Last 24 Hours of Lab Results: Laboratory Tests 02/13 02/13 02/13 1140 0857 0400 Blood Gas pH (7.35 - 7.45 PH) 7.46 H pCO2 (35 - 45 TORR) 42 pO2 (80 - 100 TORR) 126 H HCO3 (21 - 28 MEQ/L) 29 H ABG O2 Sat (Measured) (>96.0 %) 99.0 P-50 (Temp Corrected) YES Carboxyhemoglobin (1.5 - 5.0 %) 0.9 L O2 Concentration % 40% Temperature (97.0 - 100.0 FARH) 98.7 Respiration Rate (BPM) 14 O2 Delivery Method VENT Vent Mode VC Expiratory Pressure (CMH2O/P) 5 Tidal Volume (CC) 550 Chemistry Sodium (137 - 145 mmol/L) 139 Potassium (3.5 - 5.1 mmol/L) 3.9 Chloride (98 - 107 mmol/L) 103 Carbon Dioxide (22 - 30 mmol/L) 30 Anion Gap (5 - 16) 5 BUN (9 - 20 mg/dL) 21 H Creatinine (0.7 - 1.2 mg/dL) 0.5 L Estimated GFR (>60 ml/min) > 60 Glucose (65 - 99 mg/dL) 99 Calcium (8.4 - 10.2 mg/dL) 7.7 L Phosphorus (2.5 - 4.5 mg/dL) 3.3 Magnesium (1.6 - 2.3 mg/dL) 2.3 Total Bilirubin (0.2 - 1.3 mg/dL) 0.8 AST (17 - 59 U/L) 60 H ALT (21 - 72 U/L) 80 H Albumin (3.5 - 5.0 g/dL) 2.6 L Coagulation APTT (25 - 37 SEC) 71 H Hematology CBC w Diff NO MAN DIFF REQ WBC (4.8 - 10.8 /CUMM) 13.7 H RBC (4.70 - 6.10 /CUMM) 3.65 L Hgb (14.0 - 18.0 G/DL) 9.9 L Hct (42 - 52 %) 30.7 L MCV (80.0 - 94.0 FL) 84.2 MCH (27.0 - 31.0 PG) 27.0 RDW (11.5 - 14.5 %) 19.1 H Plt Count (130 - 400 /CUMM) 151 MPV (7.4 - 10.4 FL) 9.6 Gran % (42.2 - 75.2 %) 79.4 H Lymphocytes % (20.5 - 51.1 %) 12.0 L Monocytes % (1.7 - 9.3 %) 7.0 Eosinophils % (0 - 5 %) 1.5 Basophils % (0.0 - 2.0 %) 0.1 Absolute Granulocytes (1.4 - 6.5 /CUMM) 10.9 H Absolute Lymphocytes (1.2 - 3.4 /CUMM) 1.6 Absolute Monocytes (0.10 - 0.60 /CUMM) 1.0 H Absolute Eosinophils (0.0 - 0.7 /CUMM) 0.2 Absolute Basophils (0.0 - 0.2 /CUMM) 0 PUBS MCHC (33.0 - 37.0 G/DL) 32.1 L Miscellaneous Phlebotomy Draw Site LEFT A LINE 02/12 2100 Coagulation APTT (25 - 37 SEC) 74 H Last 24 Hours of Rahat Results: No recent cultures Recent Imaging Studies: Chest x-ray February 13 reveals mild atelectasis at the left lung base Assessment/Plan Impression: Stable, though remains ventilator dependent and sedated, status post closure of fasciotomy sites last evening now 4 days status post left leg thrombectomy of the popliteal and superficial femoral arteries secondary to an acute thrombus and compartment fasciotomy. His respiratory status has improved, with chest x- ray nearly normal, and with plans for CPAP trial noted. His temperatures remain normal off antibiotics and on steroids, which are being tapered, and which likely explain his increasing white blood cell count. Suggestion: 1. Continue to follow off antibiotics
[2017-02-13 16:00] VITALS: BP 128/58
--- NOTE | 2017-02-13 21:09 | NUR ---
pt franco to noxious stimuli not to command, intubated on respirator fio2 decreased to35% percussion therapy by rt. suctioned lg amts thin white sputum, easley draining qs, lleg drsg d/i. tf via ogt at goal sm amt residual obtained.
[2017-02-13 23:07] LABS: PTT 80 SEC (25-37)
[2017-02-14] VITALS: BP 90/50
[2017-02-14 05:53] LABS: ABSOLUTE BASOPHIL COUNT 0 /CUMM (0.0-0.2); ABSOLUTE EOSINOPHIL COUNT 0.1 /CUMM (0.0-0.7); ABSOLUTE GRANULOCYTE CT 13.6 /CUMM (1.4-6.5); ABSOLUTE LYMPH COUNT 1.9 /CUMM (1.2-3.4); ABSOLUTE MONOCYTE COUNT 1.3 /CUMM (0.10-0.60); BASOPHIL % 0.2 % (0.0-2.0); EOSINOPHIL % 0.4 % (0-5); GRANULOCYTE % 80.4 % (42.2-75.2); HEMATOCRIT 29.9 % (42-52); MEAN CORPUSCULAR HGB 26.9 PG (27.0-31.0); MEAN CORPUSCULAR HGB CONC 31.7 G/DL (33.0-37.0); MEAN CORPUSCULAR VOLUME 84.9 FL (80.0-94.0); MEAN PLATELET VOLUME 9.7 FL (7.4-10.4); PLATELET COUNT 169 /CUMM (130-400); RBC DISTRIBUTION WIDTH 19.6 % (11.5-14.5); RED BLOOD CELL CT 3.53 /CUMM (4.70-6.10); WHITE BLOOD CELL COUNT 16.9 /CUMM (4.8-10.8)
--- NOTE | 2017-02-14 06:50 | NUR ---
PT HAS BLACKENED SCAB ON LOWERE LIP ABOUT 1'' BITE BLOCK REMOVED.
--- NOTE | 2017-02-14 07:04 | RADIOLOGY REPORT ---
EXAMINATION: CHEST 1 VIEW CLINICAL INFORMATION: Intubated. COMPARISON: Multiple prior exams are reviewed. The most recent is from 02/13/2017. TECHNIQUE: An AP view of the chest is provided. FINDINGS: The cardiac silhouette is not enlarged. And endotracheal tubes in place. The tip is approximately 5 cm above the tin. A right central venous line is in unchanged position. The mediastinal and hilar contours are unremarkable. There are neither pleural effusions nor pneumothoraces. There is mild interstitial prominence. There are no consolidations. The osseous structures are unremarkable. IMPRESSION: Endotracheal tube and enteric tube in place. Stable appearance of mild interstitial prominence. No consolidations.
[2017-02-14 08:00] VITALS: BP 112/60
--- NOTE | 2017-02-14 09:13 | PN- CRCU ---
Subjective HPI/Critical Care Issues: pt seen and examined on mechanical ventilation leukocytosis worsened to 16.9 still minimal mental status despite reduction in sedation Objective Current Medications: Current Medications Sig/Lillie Start time Last Medication Dose Route Stop Time Status Admin Acetaminophen 650 MG Q6P PRN 02/03 2000 AC 02/07 PO 1136 Acetaminophen 1,000 MG Q6P PRN 02/03 2000 AC 02/13 IV 0832 Albuterol Sulfate 3 ML EVERY 4 HRS/AWAKE 02/07 1200 AC 02/14 INH 0806 Albuterol Sulfate 2 PUF Q4-6 PRN PRN 02/03 0645 AC 02/04 INH 2320 Aspirin 81 MG DAILY 02/08 1609 AC 02/13 PO 0917 Budesonide/ 2 PUF BID 02/03 1000 AC 02/14 Formoterol Fumarate INH 0806 Fentanyl Citrate 1,000 MCG Q24H 02/10 0830 DC 02/12 Dextrose/Water 250 ML IV 2100 Folic Acid 1 MG DAILY 02/07 1000 AC 02/13 PO 0917 Furosemide 80 MG Q8 02/09 0730 AC 02/14 IV 0640 Gabapentin 300 MG Q8 02/03 0620 AC 02/14 PO 0641 Heparin Sodium 25,000 UNIT Q16H 02/11 1230 AC 02/14 (Porcine) IV 0821 Sodium Chloride 500 ML Magnesium Oxide 400 MG BID 02/06 1000 AC 02/13 PO 2118 Methylprednisolone 40 MG DAILY 02/13 1000 AC 02/13 IV 0917 Multivitamins 1 TAB DAILY 02/07 1000 AC 02/13 PO 0917 Nitroglycerin 0.5 GM Q6 02/08 1800 AC 02/14 TOP 0641 Pantoprazole Sodium 40 MG DAILY 02/09 1000 AC 02/13 IV 0917 Phosphate 250 MG ONCE ONE 02/14 0700 CAN PO 02/14 0701 Phosphate 250 MG ONCE ONE 02/13 1030 DC 02/13 PO 02/13 1031 1242 Phosphate 500 MG PC AND AT BEDTIME 02/10 0230 AC 02/14 PO 0822 Polyethylene Glycol 17 GM DAILY 02/12 1047 AC 02/13 PO 0917 Potassium Chloride 60 MEQ ONCE ONE 02/14 0700 DC 02/14 PO 02/14 0701 0822 Potassium Chloride 10 MEQ Q1H 02/13 1030 DC 02/13 IV 02/13 1131 1116 Potassium Chloride 40 MEQ DAILY 02/09 1000 AC 02/13 PO 0917 Pravastatin Sodium 40 MG 1700 02/04 1700 AC 02/13 PO 1613 Senna 187 MG AT BEDTIME PRN 02/12 1100 AC 02/12 PO 1125 Thiamine HCl 50 MG DAILY 02/07 1000 AC 02/13 PO 0917 Tiotropium [place] 1 PUF DAILY 02/05 1208 AC 02/08 INH 1045 Vital Signs & I&O Last 24 Hrs of Vitals and I&O: Vital Signs Date Time Temp Pulse Resp B/P B/P Pulse O2 O2 Flow FiO2 Mean Ox Delivery Rate 02/14 0813 35 02/14 0609 35 02/14 0400 96 Ventilator 35% 02/14 0301 35 02/14 0053 35 02/14 0000 95 Ventilator 35% 02/14 0000 98.2 88 18 90/50 95 Ventilator 35% 02/13 2241 35 02/13 2000 35 Ventilator 35% 02/13 1915 35 02/13 1635 40 02/13 1600 99 Ventilator 40% 02/13 1600 97.8 98 18 128/58 99 Ventilator 40% 02/13 1414 40 02/13 1200 96 Ventilator 40% 02/13 1145 40 02/13 1042 98.7 Intake & Output 02/14 1600 02/14 0800 02/14 0000 Intake Total 1148 1297.6 Output Total 1690 1170 Balance -542 127.6 Intake, IV 238 237.6 Intake, Tube 520 520 Feeding Intake, Tube 390 540 Irrigant Output, Urine 1690 1170 Exam Other Physical Findings: gen mechanical ventilation heent ett cvs s1, s2 lungs transmitted, rhonci, wheezing abd soft, bs+ ext no edema, LLE dressing intact Results Last 24 Hrs of Lab Results: Laboratory Tests 02/14/17 0830: APTT Pending 02/14/17 0430: Anion Gap 7, Estimated GFR > 60, Glucose 103 H, Calcium 8.0 L, Phosphorus 3.0, Magnesium 2.4 H, Total Bilirubin 0.6, AST 45, ALT 65, Albumin 2.4 L, CBC w Diff NO MAN DIFF REQ, RBC 3.53 L, MCV 84.9, MCH 26.9 L, RDW 19.6 H, MPV 9.7, Gran % 80.4 H, Lymphocytes % 11.5 L, Monocytes % 7.5, Eosinophils % 0.4, Basophils % 0.2, Absolute Granulocytes 13.6 H, Absolute Lymphocytes 1.9, Absolute Monocytes 1.3 H, Absolute Eosinophils 0.1, Absolute Basophils 0, PUBS MCHC 31.7 L 02/13/179: APTT 80 H 02/13/17 1140: pH 7.46 H, pCO2 42, pO2 126 H, HCO3 29 H, ABG O2 Sat (Measured) 99.0, P-50 ( Temp Corrected) YES, Carboxyhemoglobin 0.9 L, O2 Concentration % 40%, Temperature 98.7, Respiration Rate 14, O2 Delivery Method VENT, Vent Mode VC, Expiratory Pressure 5, Tidal Volume 550, Phlebotomy Draw Site LEFT A LINE Impression/Plan Impression/Plan Impression/Plan: Impression 61 year old man * acute hypoxemic respiratory failure secondary to fluid overload and atelectasis * resolved coagulopathy secondary to medications * Left lower extremity ischemia, status post left groin cutdown with left leg angiogram and embolectomy with fasciotomy. * STEMI * Recurrent lower extremity DVTs, status post IVC filter. * Acute blood loss anemia - GI bleed stabilized, no evidence of active bleeding at present. Plan Respiratory -on mechanical ventilation -check abg today -CXR somewhat improved, still congested -reduce solumedrol to 30mg daily ID -leukocytosis maybe steroid induced -possibly atelectasis -off abx -ID appreciated CVS -net fluid negative goal -continue diuresis -hemodynamically stable Heme -h/h stable -no bleeding at this time -heparin gtt Metabolic -ins/outs, creatinine, monitor electrolytes Alimentary -tube feeds Neuro -reduce sedation, for plan to CPAP trial needs to have improved mental status -given obtunded state despite reduction in sedation, will get CT head DVT prophylaxis at all times - currently on heparin gtt - (usually on coumadin) TTS 40 min
[2017-02-14 09:38] LABS: PTT 62 SEC (25-37)
--- NOTE | 2017-02-14 10:03 | PN- Resident CRCU ---
Subjective HPI/CRCU Issues: Patient seen and examined at bedside this AM. He remains intubated and off sedation, though he is still difficult to arouse. Patient is tolerating tube feeds and lasix well. CT head is ordered to evaluate for hemorrhage. 24 Hour Events: Telemetry: NO telemetry events in the last 24 hours Vital signs last 24 hours: T 97.5-99.8, HR 88-111, RR 16-24, BP 103-160/48-82, O2 90-98% on AV ventilation RR 14, VT 550, FiO2 35% 5 PEEP. Total input: 4052 cc in last 24 hours Total output: 4460 last 24 hours Objective Vital Signs & I&O Last 8 Hrs of Vitals and I&O: T 97.5-99.8, HR 88-111, RR 16-24, BP 103-160/48-82, O2 90-98% on AV ventilation RR 14, VT 550, FiO2 35% 5 PEEP. Exam General Appearance: well developed/nourished, no apparent distress, sedated, intubated Head: atraumatic, normal appearance Ears, Nose, Throat: normal pharynx Neck: normal inspection, No JVD Respiratory: normal breath sounds, chest non-tender, no respiratory distress Cardiovascular: regular rate/rhythm Gastrointestinal: normal bowel sounds, soft, non-tender Extremities: normal inspection, normal capillary refill Cranial Nerves: No facial droop appreciated Skin: intact, warm/dry Skin Temp/Moisture Exam: Warm/Dry Nutrition Nutrition: tube feeding Current Medications: Current Medications Sig/Lillie Start time Last Medication Dose Route Stop Time Status Admin Acetaminophen 650 MG Q6P PRN 02/03 2000 AC 02/07 PO 1136 Acetaminophen 1,000 MG Q6P PRN 02/03 2000 AC 02/13 IV 0832 Albuterol Sulfate 3 ML EVERY 4 HRS/AWAKE 02/07 1200 AC 02/14 INH 0806 Albuterol Sulfate 2 PUF Q4-6 PRN PRN 02/03 0645 AC 02/04 INH 2320 Aspirin 81 MG DAILY 02/08 1609 AC 02/14 PO 0922 Budesonide/ 2 PUF BID 02/03 1000 AC 02/14 Formoterol Fumarate INH 0806 Folic Acid 1 MG DAILY 02/07 1000 AC 02/14 PO 0923 Furosemide 80 MG Q8 02/09 0730 AC 02/14 IV 0640 Gabapentin 300 MG Q8 02/03 0620 AC 02/14 PO 0641 Heparin Sodium 25,000 UNIT Q16H 02/11 1230 AC 02/14 (Porcine) IV 0821 Sodium Chloride 500 ML Magnesium Oxide 400 MG BID 02/06 1000 AC 02/13 PO 2118 Methylprednisolone 30 MG DAILY 02/14 1001 AC IV Methylprednisolone 40 MG DAILY 02/13 1000 DC 02/14 IV 0924 Multivitamins 1 TAB DAILY 02/07 1000 AC 02/14 PO 0923 Nitroglycerin 0.5 GM Q6 02/08 1800 AC 02/14 TOP 0641 Pantoprazole Sodium 40 MG DAILY 02/09 1000 AC 02/14 IV 0923 Phosphate 250 MG ONCE ONE 02/14 0700 CAN PO 02/14 0701 Phosphate 500 MG PC AND AT BEDTIME 02/10 0230 AC 02/14 PO 0822 Polyethylene Glycol 17 GM DAILY 02/12 1047 AC 02/14 PO 0922 Potassium Chloride 60 MEQ ONCE ONE 02/14 0700 DC 02/14 PO 02/14 0701 0822 Potassium Chloride 40 MEQ DAILY 02/09 1000 AC 02/13 PO 0917 Pravastatin Sodium 40 MG 1700 02/04 1700 AC 02/13 PO 1613 Senna 187 MG AT BEDTIME PRN 02/12 1100 AC 02/12 PO 1125 Thiamine HCl 50 MG DAILY 02/07 1000 AC 02/14 PO 0923 Tiotropium [place] 1 PUF DAILY 02/05 1208 AC 02/08 INH 1045 Results Cultures: Culture: Blood Date: 02/08/17 Isolate: No growth-final CXR Findings: IMPRESSION: Endotracheal tube and enteric tube in place. Stable appearance of mild interstitial prominence. No consolidations. Impression/Plan Impression/Problem List Impression: Mr. Flores is a pleasant 61 year old male with PMH asthma, dyslipidemia, alcohol abuse, previous alcohol withdrawl seizure, and DVT x 2 (2014, August 2016) currently on coumadin who presented with chief complaint of several episodes of coffe-ground emesis and dark, tarry stools without overt blood/ clots. Associated symptoms at time of presentation included easy bleeding/ brusing of his extremities and dyspnea on exertion. Of note, patient was started on anticoagulation with his second episode of DVT in August of 2016. He was inadvertently placed on both xarelto by his PCP and Coumadin by Dr. De Santiago, vascular surgery, until 1-2 weeks later when this was noted and his PCP discontinued Xarelto. In the ED: Vital signs showed a Tmax of 994. HR 117, RR 22, BP 99/54 and O2 saturation of 99% on room air. Labs were significant for H&H 5.3/16.7, Plt 259, Na 131, K 4.1, HCO3 16, Cre 0.6 , Ca 8, Albumin 2.5, INR >10. EKG showed sinus tachycardia and no significant ST/T wave changes. Patient is currently admitted to the ICU and the following is the management: 1. Acute blood loss anemia secondary to GI bleed in the setting of supratherapeutic INR * GI consult placed and appreciated, continue to follow recommendations * Continue to hold coumadin, no further bleeding has been noted * Patient is s/p EGD which was grossly normal, no active bleeding * Patient will require colonoscopy likely as an outpatient after discharge * CBC now stable after 6 units prbcs total, 2 U given in the OR during thrombectomy and fasciotomy * INR now subtherapeutic after total of 4 units FFP, patient s/p IVC filter placement with IR * Patient continued on heparin drip for therapeutic PTT due to concerns for ST changes/LLE thrombosis * IV protonix daily * Strict Is/Os, continue net negative fluid balance 2. Elevated troponins * Troponins peaked at 4.[address] elevations, currently EKG improving and troponins trending down * Heparin drip continued * Cardio consult placed and appreciated, continue to follow recomendations * NTG paste 1/2 inch, aspirin, statin * Echocardiogram shows normal EF at 60%, trace MR, mild-mod TR, moderate pulm HTN * Patient will likely require cardiac cath after discharge and once stable from a respiratory standpoint 3. Alcohol abuse * CIWA scoring discontinued as patient only scoring 0 * Alcohol cessation information and counseling provided * Continue MV, thiamine, folate 4. History of DVT with non-palpable pedal pulses * Bilateral lower extremity venous dopplers showed extensive left lower extremity near occlusive DVT, no RLE DVT * Hold coumadin; Patient now s/p IVC filter placement and will continue heparin * Patient POD#5 from fasciotomy with LLE thrombectomy with vascular surgery and now LLE has improved warmth/color/dopplerable pulse * Continue daily dressing changes * Continue to follow vascular recommendations 5. Acute respiratory distress in setting of likely underlying COPD * Consideration for fluid overload in the setting of frequent transfusions vs ARDS * Continue mechanical ventilation for now, respiratory status improving * ID consult appreciated, recommends watching off antibiotics, repeat blood cultures negative for growth * IV lasix 80 mg Q8 as recommended by cardio; aggressive diuresis to maintain negative fluid balance * Titrate down FiO2 to maintain sat >92% * ALL sedation discontinued, head CT today to evaluate for decreased arousability * CPAP trial when more awake * Solumedrol decreased to30 mg IV daily 6. Chronic pain * Continue neurontin 300 mg PO Q8 * PO tylenol for mild pain, IV tylenol for moderate pain 7. Dietary * Nutrition consult appreciated * Continue Jevity for tube feeds, tolerating well FULL CODE DVTP: Heparin IV Tube Feeds Mild-moderate pain pathway Problem List: 1. ETOH ABUSE 2. DVT (deep venous thrombosis) 3. GI bleed 4. H/O fasciotomy 5. Acute respiratory distress Pain Ratin Tomorrow's Labs & Rationales: CBC (leukocytosis, anemia, heparin therapy) ICU bundle (hypokalemia) Plan DVT/Prophylaxis: mechanical (no pharm 2/2 acute blood loss)
--- NOTE | 2017-02-14 11:54 | CT SCAN REPORT ---
EXAMINATION: CT HEAD WITHOUT CONTRAST CLINICAL INFORMATION: Stroke; question hemorrhage. COMPARISON: Prior brain CT examinations, most recently 03/09/2016. TECHNIQUE: Contiguous axial imaging was performed from the skull base to vertex without intravenous administration of contrast. DLP: 616.17 mGy-cm FINDINGS: There is no evidence of acute intracranial hemorrhage or territorial infarction. No abnormal mass effect or midline shift is seen. Rivera to white matter differentiation is well preserved. No extra-axial fluid collections are identified. The ventricles are normal in size. There is mild patchy low attenuation change in the periventricular white matter spaces. There is generalized sulcal widening. The osseous structures and soft tissues are normal. There is moderate bilateral maxillary and sphenoid sinusitis. The mastoid air cells are well-aerated. IMPRESSION: 1. No acute intracranial pathology. 2. There is mild patchy low attenuation change in the periventricular white matter spaces, commonly associated with chronic microangiopathy 3. There is mild generalized sulcal widening. 4. There is bilateral maxillary and sphenoid sinusitis.
--- NOTE | 2017-02-14 12:41 | NUR ---
PT REMAINS MINIMALLY RESPONSIVE, OFF SEDATION FOR >24 HOURS. PT WILL OPEN EYES TO COMMAND AND ATTEMPTS TO LIFT HEAD OFF THE PILLOW. PERRL, 3MM. PT NOT MOVING EXTREMETIES. OCCASIONAL OVERBREATHING OF THE VENT. PT TAKEN TO CT FOR A SCAN OF THE HEAD. PT IS IN A NSR-ST 90-100'S. WITH SBP 90-110'S. PT REMAINS INTUBATED ON 35% WITH CLR/DIMINSHED LUNG SOUNDS. MODERATE AMT OF ORAL AND ETT SECRETIONS. +BS AND FLATUS. JEVITY 1.5 VIA OGT AT GOAL W 100ML RESIDUAL AT 0800. 1250ML/6 HOURS, S/P LASIX, CLEAR, YELLOW, URINE VIA SHEARER. SKIN REMAINS ECCHYMOTIC W SEVERAL SKIN TEARS AND STAGE 1 TO BUTTOCKS. RASH NOTED TO WOJCIECH AREA. DR ANAMIKA VILLEGAS TO BEDSIDE TO ASSESS. NYSTATIN ORDERED FOR PT. ALL SKIN TEAR DRESSINGS HAVE SCANT DRIED DRAINAGE AND WERE CHANGED. SURGICAL DRESSINGS ARE C/D/I. PT REMAINS ON HEPARIN GTT. AM PTT WAS THERAPEUTIC AT 62 AND NO CHANGES WERE MADE PER PROTOCOL. K AND PHOS REPLETED VIA OGT.
--- NOTE | 2017-02-14 13:41 | PN- Vascular Surgery ---
Surgical Brief Attending Note Brief Attending Note: VASCULR ATTENDING NOTE: 61 YO with recent acutely ischemic LLE pod #4 S/P thrombectomy/fasciotomy. Pt. is intubated/sedated. PE: AF/VSS Both feet are warm and well perfused. A/P Continue daily dressing change to LLE incisions Cont. care as per CCM.
[2017-02-14 15:30] VITALS: BP 110/70
[2017-02-14 21:58] LABS: PTT 72 SEC (25-37)
[2017-02-15] VITALS: BP 105/54
[2017-02-15 04:47] LABS: ABSOLUTE BASOPHIL COUNT 0 /CUMM (0.0-0.2); ABSOLUTE EOSINOPHIL COUNT 0.1 /CUMM (0.0-0.7); ABSOLUTE GRANULOCYTE CT 15.2 /CUMM (1.4-6.5); ABSOLUTE MONOCYTE COUNT 1.6 /CUMM (0.10-0.60); BASOPHIL % 0.1 % (0.0-2.0); EOSINOPHIL % 0.8 % (0-5); GRANULOCYTE % 80.5 % (42.2-75.2); HEMATOCRIT 30.5 % (42-52); MEAN CORPUSCULAR HGB 26.6 PG (27.0-31.0); MEAN CORPUSCULAR HGB CONC 31.5 G/DL (33.0-37.0); MEAN CORPUSCULAR VOLUME 84.3 FL (80.0-94.0); MEAN PLATELET VOLUME 9.7 FL (7.4-10.4); PLATELET COUNT 203 /CUMM (130-400); RBC DISTRIBUTION WIDTH 19.8 % (11.5-14.5); RED BLOOD CELL CT 3.62 /CUMM (4.70-6.10); WHITE BLOOD CELL COUNT 18.9 /CUMM (4.8-10.8)
--- NOTE | 2017-02-15 06:51 | PN- Resident CRCU ---
Subjective HPI/CRCU Issues: Patient seen and examined at bedside this AM. He is more responsive today, opening his eyes and following some commands. He remains off of sedatives. Patient had a 3 hour CPAP trial yesterday and tolerated this very well. Of note, head CT done yesterday shows no acute intracranial abnormality. His urine output remains great and he is diuresing well. 24 Hour Events: Telemetry: No events in the last 24 hours. Vital signs last 24 hours: T 97.2-98.5, HR 89-105, RR 15-23, BP 99-139/45-72, O2 93-98% on AV RR 14 TV 550 FiO2 35% 5 PEEP. Total intake last 24 hours: 3240 cc Total output: 3580 cc lat 24 hours Objective Vital Signs & I&O Last 8 Hrs of Vitals and I&O: T 97.2-98.5, HR 89-105, RR 15-23, BP 99-139/45-72, O2 93-98% on AV RR 14 TV 550 FiO2 35% 5 PEEP. Exam General Appearance: well developed/nourished, no apparent distress, comfortable, intubated Head: atraumatic, normal appearance Ears, Nose, Throat: normal pharynx, hearing grossly normal Neck: normal inspection, supple Respiratory: normal breath sounds, chest non-tender, no respiratory distress Cardiovascular: regular rate/rhythm Gastrointestinal: normal bowel sounds, soft, non-tender Extremities: normal inspection, no edema Cranial Nerves: PERRL Skin: normal color, warm/dry Skin Temp/Moisture Exam: Warm/Dry Weaning Parameters NIF: 58 Minute Volume: 9.30 Resp rate: 21 Vt: 440 Heart Rate: 100 Weaning Schedule Start Time: 1630 Minute Volume: 14.6 Resp Rate: 24 Vt: 590 Heart Rate: 98 End Time: 1930 Minute Volume: 12.5 Resp Rate: 20 Vt: 609 Heart Rate: 93 Nutrition Nutrition: tube feeding Current Medications: Current Medications Sig/Lillie Start time Last Medication Dose Route Stop Time Status Admin Acetaminophen 650 MG Q6P PRN 02/02 PO 1136 Acetaminophen 1,000 MG Q6P PRN 02/03 2000 AC 02/13 IV 0832 Albuterol Sulfate 3 ML EVERY 4 HRS/AWAKE 02/08 1200 AC 02/15 INH 0839 Albuterol Sulfate 2 PUF Q4-6 PRN PRN 02/03 0645 AC 02/04 INH 2320 Aspirin 81 MG DAILY 02/08 1609 AC 02/15 PO 0940 Budesonide/ 2 PUF BID 02/03 1000 AC 02/15 Formoterol Fumarate INH 1023 Folic Acid 1 MG DAILY 02/07 1000 AC 02/15 PO 0940 Furosemide 80 MG Q8 02/09 0730 AC 02/15 IV 0512 Gabapentin 300 MG Q8 02/03 0620 AC 02/15 PO 0513 Heparin Sodium 25,000 UNIT Q16H 02/11 1230 AC 02/15 (Porcine) IV 0511 Sodium Chloride 500 ML Magnesium Oxide 400 MG BID 02/06 1000 AC 02/13 PO 2118 Methylprednisolone 30 MG DAILY 02/14 1001 DC 02/15 IV 0940 Multivitamins 1 TAB DAILY 02/07 1000 AC 02/15 PO 0940 Nitroglycerin 0.5 GM Q6 02/08 1800 AC 02/15 TOP 0513 Nystatin 1 NEO DAILY 02/14 1152 AC 02/15 TOP 0943 Pantoprazole Sodium 40 MG DAILY 02/09 1000 AC 02/15 IV 0940 Phosphate 500 MG AT BEDTIME 02/15 2200 AC PO Phosphate 500 MG PC AND AT BEDTIME 02/10 0230 DC 02/14 PO 1703 Polyethylene Glycol 17 GM DAILY 02/12 1047 AC 02/15 PO 0940 Potassium Chloride 20 MEQ ONCE ONE 02/15 0745 DC 02/15 IV 02/15 0746 0807 Potassium Chloride 10 MEQ Q1H 02/15 0715 DC IV 02/15 0916 Potassium Chloride 10 MEQ Q1H 02/14 1915 DC 02/14 IV 02/14 Potassium Chloride 40 MEQ DAILY 02/09 1000 AC 02/15 PO 0940 Pravastatin Sodium 40 MG 1700 02/04 1700 AC 02/14 PO 1703 Prednisone 20 MG DAILY 02/16 1000 AC PO Senna 187 MG AT BEDTIME PRN 02/12 1100 AC 02/12 PO 1125 Thiamine HCl 50 MG DAILY 02/07 1000 AC 02/15 PO 0939 Tiotropium [place] 1 PUF DAILY 02/05 1208 AC 02/08 INH 1045 Impression/Plan Impression/Problem List Impression: Mr. Flores is a pleasant 61 year old male with PMH asthma, dyslipidemia, alcohol abuse, previous alcohol withdrawl seizure, and DVT x 2 (2014, August 2016) currently on coumadin who presented with chief complaint of several episodes of coffe-ground emesis and dark, tarry stools without overt blood/ clots. Associated symptoms at time of presentation included easy bleeding/ brusing of his extremities and dyspnea on exertion. Of note, patient was started on anticoagulation with his second episode of DVT in August of 2016. He was inadvertently placed on both xarelto by his PCP and Coumadin by Dr. De Santiago, vascular surgery, until 1-2 weeks later when this was noted and his PCP discontinued Xarelto. In the ED: Vital signs showed a Tmax of 994. HR 117, RR 22, BP 99/54 and O2 saturation of 99% on room air. Labs were significant for H&H 5.3/16.7, Plt 259, Na 131, K 4.1, HCO3 16, Cre 0.6 , Ca 8, Albumin 2.5, INR >10. EKG showed sinus tachycardia and no significant ST/T wave changes. Patient is currently admitted to the ICU and the following is the management: 1. Acute blood loss anemia secondary to GI bleed in the setting of supratherapeutic INR * GI consult placed and appreciated, continue to follow recommendations * Continue to hold coumadin, no further bleeding has been noted * Patient is s/p EGD which was grossly normal, no active bleeding * Patient will require colonoscopy likely as an outpatient after discharge * CBC now stable after 6 units prbcs total, 2 U given in the OR during thrombectomy and fasciotomy * INR now subtherapeutic after total of 4 units FFP, patient s/p IVC filter placement with IR * Patient continued on heparin drip for therapeutic PTT due to concerns for ST changes/LLE thrombosis * IV protonix daily * Strict Is/Os, continue net negative fluid balance 2. Elevated troponins * Troponins peaked at 4.[address] elevations, currently EKG improving and troponins trending down * Heparin drip continued * Cardio consult placed and appreciated, continue to follow recomendations * NTG paste 1/2 inch, aspirin, statin * Echocardiogram shows normal EF at 60%, trace MR, mild-mod TR, moderate pulm HTN * Patient will likely require cardiac cath after discharge and once stable from a respiratory standpoint 3. Alcohol abuse * CIWA scoring discontinued as patient only scoring 0 * Alcohol cessation information and counseling provided * Continue MV, thiamine, folate 4. History of DVT with non-palpable pedal pulses * Bilateral lower extremity venous dopplers showed extensive left lower extremity near occlusive DVT, no RLE DVT * Hold coumadin; Patient now s/p IVC filter placement and will continue heparin * Patient POD#6 from fasciotomy with LLE thrombectomy with vascular surgery and now LLE has improved warmth/color/dopplerable pulse * Continue daily dressing changes * Continue to follow vascular recommendations 5. Acute respiratory distress in setting of likely underlying COPD * Consideration for fluid overload in the setting of frequent transfusions vs ARDS * Continue mechanical ventilation for now, respiratory status improving * ID consult appreciated, recommends watching off antibiotics, repeat blood cultures negative for growth * IV lasix 80 mg Q8 as recommended by cardio; aggressive diuresis to maintain negative fluid balance * Titrate down FiO2 to maintain sat >92% * ALL sedation discontinued, head CT yesterday showed no acute intracranial pathology * CPAP trial tolerated well, plan for extubation when patient more awake * Solumedrol discontinued after today and patient to start PO prednisone 20 mg tomorrow 6. Chronic pain * Continue neurontin 300 mg PO Q8 * PO tylenol for mild pain, IV tylenol for moderate pain 7. Dietary * Nutrition consult appreciated * Continue Jevity for tube feeds, tolerating well FULL CODE DVTP: Heparin IV Tube Feeds Mild-moderate pain pathway Problem List: 1. H/O fasciotomy 2. Acute respiratory distress 3. GI bleed 4. DVT (deep venous thrombosis) 5. ETOH ABUSE Pain Ratin Tomorrow's Labs & Rationales: CBC (leukocytosis, blood loss anemia) ICU bundle (hypokalemia) Plan DVT/Prophylaxis: mechanical (no pharm 2/2 acute blood loss)
[2017-02-15 08:00] VITALS: BP 94/50
--- NOTE | 2017-02-15 08:53 | NUR ---
PT MORE RESPONSIVE TODAY. FOLLOWS SIMPLE COMMANDS WITHIN HIS ABILITY AND WITH MUCH ENCOURAGEMENT. VERY WEAK, BUT ABLE TO OPEN EYES, WEAK HAND GRASPS AND MOVE BLE. VSS THIS MORNING AND PT REMAINS INTUBATED OFF OF SEDATION FOR > 48 HOURS. HEPARIN IS INFUSING CONTINUALY, WHICH HAS BEEN THERAPEUTIC W A REPEAT PTT AT 1000 AM. TF IS AT GOAL THROUGH OGT, WITH NO RESIDUAL. SHEARER INSITU S/P LASIX THIS AM WITH U.O. CLEAR, YELLOW, >700/3 HOURS. K REPLETED, MAG HELD. PHOS LEVEL IS WNL, DISCUSSED WITH DR VILLEGAS. PHOS MED ADMINISTRATION ADJUSTED BASED ON NORMAL PHOS LEVEL.
--- NOTE | 2017-02-15 09:49 | RADIOLOGY REPORT ---
EXAMINATION: XR PORTABLE CHEST CLINICAL INFORMATION: Hypoxic respiratory failure. COMPARISON: Chest x-ray done on 02/14/2017. TECHNIQUE: Portable frontal view of the chest was obtained. FINDINGS: The tip of the endotracheal tube is located approximately 3.2 cm above the level of the tin. The right IJ central line tip is projecting at the level of the cavoatrial junction. Tip of the enteric tube is not well visualized, appear inferior diaphragmatic. Persistent stable predominantly bilateral mid to lower lobar airspace opacities present. There is improved aeration noted at both upper lobes since the prior study. There is no lung volume present bilaterally. Overall, no significant change. IMPRESSION: No significant change since 02/14/2017.
--- NOTE | 2017-02-15 09:56 | PN- CRCU ---
Subjective HPI/Critical Care Issues: The patient is more awake, and is now off sedation. He remains on mechanical ventilation. His oxygen requirement is down to 35% with saturations in the mid to high 90s. The patient is afebrile. He has excellent urine output. Overall, he appears to be improved with diuresis. The patient remains on a heparin drip. There is no report of bleeding. Objective Current Medications: Current Medications Sig/Lillie Start time Last Medication Dose Route Stop Time Status Admin Acetaminophen 650 MG Q6P PRN 02/03 2000 AC 02/07 PO 1136 Acetaminophen 1,000 MG Q6P PRN 02/03 2000 AC 02/13 IV 0832 Albuterol Sulfate 3 ML EVERY 4 HRS/AWAKE 02/07 1200 AC 02/15 INH 0839 Albuterol Sulfate 2 PUF Q4-6 PRN PRN 02/03 0645 AC 02/04 INH 2320 Aspirin 81 MG DAILY 02/08 1609 AC 02/15 PO 0940 Budesonide/ 2 PUF BID 02/03 1000 AC 02/14 Formoterol Fumarate INH 2102 Folic Acid 1 MG DAILY 02/07 1000 AC 02/15 PO 0940 Furosemide 80 MG Q8 02/09 0730 AC 02/15 IV 0512 Gabapentin 300 MG Q8 02/03 0620 AC 02/15 PO 0513 Heparin Sodium 25,000 UNIT Q16H 02/11 1230 AC 02/15 (Porcine) IV 0511 Sodium Chloride 500 ML Magnesium Oxide 400 MG BID 02/06 1000 AC 02/13 PO 2118 Methylprednisolone 30 MG DAILY 02/14 1001 AC 02/15 IV 0940 Methylprednisolone 40 MG DAILY 02/13 1000 DC 02/14 IV 0924 Multivitamins 1 TAB DAILY 02/07 1000 AC 02/15 PO 0940 Nitroglycerin 0.5 GM Q6 02/08 1800 AC 02/15 TOP 0513 Nystatin 1 NEO DAILY 02/14 1152 AC 02/15 TOP 0943 Pantoprazole Sodium 40 MG DAILY 02/09 1000 AC 02/15 IV 0940 Phosphate 500 MG AT BEDTIME 02/15 2200 AC PO Phosphate 500 MG PC AND AT BEDTIME 02/10 0230 DC 02/14 PO 1703 Polyethylene Glycol 17 GM DAILY 02/12 1047 AC 02/15 PO 0940 Potassium Chloride 20 MEQ ONCE ONE 02/15 0745 DC 02/15 IV 02/15 0746 0807 Potassium Chloride 10 MEQ Q1H 02/15 0715 DC IV 02/15 0916 Potassium Chloride 10 MEQ Q1H 02/14 1915 DC 02/14 IV 02/14 Potassium Chloride 40 MEQ DAILY 02/09 1000 AC 02/15 PO 0940 Pravastatin Sodium 40 MG 1700 02/04 1700 AC 02/14 PO 1703 Senna 187 MG AT BEDTIME PRN 02/12 1100 AC 02/12 PO 1125 Thiamine HCl 50 MG DAILY 02/07 1000 AC 02/15 PO 0939 Tiotropium [place] 1 PUF DAILY 02/05 1208 AC 02/08 INH 1045 Vital Signs & I&O Last 24 Hrs of Vitals and I&O: Vital Signs Date Time Temp Pulse Resp B/P B/P Pulse O2 O2 Flow FiO2 Mean Ox Delivery Rate 02/15 0831 35 02/15 0800 96 Ventilator 35% 02/15 0800 98.4 74 20 94/50 96 Nasal 2.0L Cannula 02/15 0557 35 02/15 0400 96 Ventilator 35% 02/15 0316 35 02/15 0033 35 02/15 0000 97.2 92 22 105/54 93 Ventilator 35% 02/15 0000 93 Ventilator 35% 02/14 2241 35 02/14 2000 93 Ventilator 35% 02/14 1930 35 02/14 1625 35 02/14 1600 95 Ventilator 35% 02/14 1530 97.8 100 18 110/70 96 Ventilator 35% 02/14 1420 35 02/14 1212 35 02/14 1200 97 Ventilator 35% Intake & Output 02/15 1600 02/15 0800 02/15 0000 Intake Total 1039 1325 Output Total 500 1480 Balance 539 -155 Intake, IV 205 394 Intake, Oral 0 Intake, Tube 419 411 Feeding Intake, Tube 415 520 Irrigant Number 0 0 Bowel Movements Output, Urine 500 1480 Exam General Appearance: intubated and sedated, comfortable Head: atraumatic, normal appearance Neck: supple Respiratory: bilateral wheezing and crackles scattered throughout, lungs expand symmetrically Cardiovascular: regular rate/rhythm Abdomen: normal bowel sounds, soft, non-tender Extremities: right lower extremity warm and dry, left lower extremity dressings in place, warm compress applied Skin: intact, normal color, warm/dry Results Last 24 Hrs of Lab Results: Laboratory Tests 02/15/17 0950: APTT Pending 02/15/17 0417: Anion Gap 8, Estimated GFR > 60, Glucose 129 H, Calcium 8.3 L, Phosphorus 3.5, Magnesium 2.4 H, Total Bilirubin 0.7, AST 45, ALT 63, Albumin 2.7 L, CBC w Diff NO MAN DIFF REQ, RBC 3.62 L, MCV 84.3, MCH 26.6 L, RDW 19.8 H, MPV 9.7, Gran % 80.5 H, Lymphocytes % 10.3 L, Monocytes % 8.3, Eosinophils % 0.8, Basophils % 0.1, Absolute Granulocytes 15.2 H, Absolute Lymphocytes 2.0, Absolute Monocytes 1.6 H, Absolute Eosinophils 0.1, Absolute Basophils 0, PUBS MCHC 31.5 L 02/14/172057: APTT 72 H 02/14/17 1710: Anion Gap 10, Estimated GFR > 60, Glucose 178 H, Calcium 8.2 L, Phosphorus 3.9 , Magnesium 2.4 H, Total Bilirubin 0.8, AST 46, ALT 78 H, Albumin 3.1 L Last 24 Hrs of Micro Results: Sputum culture positive for yeast. Impression/Plan Impression/Plan Impression/Plan: 1. Left lower extremity ischemia, status post left groin cutdown with left leg angiogram and embolectomy with fasciotomy. 2. Acute hypoxemic respiratory failure, improving. 3. COPD with improved bronchospasm. 4. Electrolyte abnormalities. 5. Acute VA. 6. Recurrent lower extremity DVTs, status post IVC filter. 7. Patient initially admitted with a GI bleed, no evidence of active bleeding at present. Recommendations: * Check a portable chest x-ray to ensure adequate positioning of all lines and tubes. * Titrate oxygen down for sats greater than 92%. * Continue with weaning trials, will extubate when the patient is more awake and alert and has acceptable parameters. * Continue with diuresis as recommended by cardiology. * Continue heparin drip for therapeutic PTT. * Monitor off sedation. * Continue TRC for nebulizer treatments. * Change to prednisone 20 mg daily, will slowly taper off. * Continue tube feeds at goal. * Continue MVI/thiamine/folate. * IV Protonix. * Continue Vent bundle q shift. * Continue all current support.
[2017-02-15 11:32] LABS: PTT 70 SEC (25-37)
--- NOTE | 2017-02-15 12:19 | NUR ---
PT HAS BEEN ON WEAN TRIAL SINCE 930 AM; PS 6. (3 HOURS) TOLERATED WELL.
--- NOTE | 2017-02-15 13:19 | PN- Infect Dx ---
Subjective Subjective: Afebrile on steroids. He offers no complaints. Objective Last 24 Hrs of Vital Signs/I&O Vital Signs Date Time Temp Pulse Resp B/P B/P Pulse O2 O2 Flow FiO2 Mean Ox Delivery Rate 02/15 1200 95 Ventilator 35% 02/15 1027 35 02/15 0831 35 02/15 0800 96 Ventilator 35% 02/15 0800 98.4 74 20 94/50 96 Nasal 2.0L Cannula 02/15 0557 35 02/15 0400 96 Ventilator 35% 02/15 0316 35 02/15 0033 35 02/15 0000 97.2 92 22 105/54 93 Ventilator 35% 02/15 0000 93 Ventilator 35% 02/14 2241 35 02/14 2000 93 Ventilator 35% 02/14 1930 35 02/14 1625 35 02/14 1600 95 Ventilator 35% 02/14 1530 97.8 100 18 110/70 96 Ventilator 35% 02/14 1420 35 Intake & Output 02/15 1600 02/15 0800 02/15 0000 Intake Total 1039 1325 Output Total 500 1480 Balance 539 -155 Intake, IV 205 394 Intake, Oral 0 Intake, Tube 419 411 Feeding Intake, Tube 415 520 Irrigant Number 0 0 Bowel Movements Output, Urine 500 1480 Physical Exam Other Physical Findings: He is awake and alert on the ventilator in no acute distress Neck right IJ triple-lumen catheter with no inflammation at the site Lungs are clear Heart regular rhythm with no murmur Extremities left foot warm; left leg dressing intact Meyer catheter remains in place Results Last 24 Hours of Lab Results: Laboratory Tests 02/15 02/15 02/14 02/14 0950 0417 2058 1710 Chemistry Sodium (137 - 145 mmol/L) 146 H 145 Potassium (3.5 - 5.1 mmol/L) 3.3 L 3.8 Chloride (98 - 107 mmol/L) 105 106 Carbon Dioxide (22 - 30 mmol/L) 33 H 29 Anion Gap (5 - 16) 8 10 BUN (9 - 20 mg/dL) 28 H 21 H Creatinine (0.7 - 1.2 mg/dL) 0.5 L 0.5 L Estimated GFR (>60 ml/min) > 60 > 60 Glucose (65 - 99 mg/dL) 129 H 178 H Calcium (8.4 - 10.2 mg/dL) 8.3 L 8.2 L Phosphorus (2.5 - 4.5 mg/dL) 3.5 3.9 Magnesium (1.6 - 2.3 mg/dL) 2.4 H 2.4 H Total Bilirubin (0.2 - 1.3 mg/dL) 0.7 0.8 AST (17 - 59 U/L) 45 46 ALT (21 - 72 U/L) 63 78 H Albumin (3.5 - 5.0 g/dL) 2.7 L 3.1 L Coagulation APTT (25 - 37 SEC) 70 H 72 H Hematology CBC w Diff NO MAN DIFF REQ WBC (4.8 - 10.8 /CUMM) 18.9 H RBC (4.70 - 6.10 /CUMM) 3.62 L Hgb (14.0 - 18.0 G/DL) 9.6 L Hct (42 - 52 %) 30.5 L MCV (80.0 - 94.0 FL) 84.3 MCH (27.0 - 31.0 PG) 26.6 L RDW (11.5 - 14.5 %) 19.8 H Plt Count (130 - 400 /CUMM) 203 MPV (7.4 - 10.4 FL) 9.7 Gran % (42.2 - 75.2 %) 80.5 H Lymphocytes % (20.5 - 51.1 %) 10.3 L Monocytes % (1.7 - 9.3 %) 8.3 Eosinophils % (0 - 5 %) 0.8 Basophils % (0.0 - 2.0 %) 0.1 Absolute Granulocytes (1.4 - 6.5 /CUMM) 15.2 H Absolute Lymphocytes (1.2 - 3.4 /CUMM) 2.0 Absolute Monocytes (0.10 - 0.60 /CUMM) 1.6 H Absolute Eosinophils (0.0 - 0.7 /CUMM) 0.1 Absolute Basophils (0.0 - 0.2 /CUMM) 0 PUBS MCHC (33.0 - 37.0 G/DL) 31.5 L Last 24 Hours of Rahat Results: Sputum culture February 14 mixed francisco Recent Imaging Studies: Chest x-ray February 15, personally reviewed, reveals bibasilar densities CT of the head February 14 no acute process Assessment/Plan Impression: Stable, with weaning in progress, with temperatures remaining normal (on steroids) but with white blood cell count increasing, possibly secondary to the steroids. He remains off antibiotics and is otherwise improved status post closure of fasciotomy sites 3 days ago now 7 days status post left leg thrombectomy of the popliteal and superficial femoral arteries secondary to an acute thrombus and compartment fasciotomy. Suggestion: 1. Would obtain blood cultures 2 and urine culture 2. Continue to taper steroids per Pulmonary 3. Continue to follow off antibiotics
--- NOTE | 2017-02-15 15:04 | NUR ---
PT TEMP 100.5. NOTIFIED DR VILLEGAS. BC X 2 AND URINE CULTURE OBTAINED AND SENT. ICE MERVAT TO BACK OF NECK AND COOL CLOTH TO FOREHEAD. TEMP DOWN TO 99.9.
[2017-02-15 16:00] VITALS: BP 110/60
--- NOTE | 2017-02-15 19:49 | NUR ---
PT IS AWAKE ROBISON TO COMMAND LEGS WEAKLY, INTUBATED ON RESPIRATOR SUCTIONED FREQ MOD AMTS THIN WHITE SPUTUM, LG AMT OF ORAL SECRETIONS. TUBE FEED PATY OGT SMA AMT RESIDUAL OBTAINED PULSES PALPABLE TO LP WEAK FOOT WARM ALL DRSG D/I. REORIENTED TO UNIT AND PLAN OF CARE, PT UNDERSTANDS.
--- NOTE | 2017-02-15 21:58 | PN- Cardiology ---
Subjective Subjective: * Patient is awake. Intubated. * sinus rhythm * increased WBC to 18.9 on steroids Objective Vital Signs and I&Os Vital Signs Date Time Temp Pulse Resp B/P B/P Pulse O2 O2 Flow FiO2 Mean Ox Delivery Rate 02/15 1934 96 Ventilator 35% 02/15 1650 35 02/15 1600 97 Ventilator 35% 02/15 1600 98.3 95 19 110/60 97 Ventilator 35% 02/15 1325 35 02/15 1200 95 Ventilator 35% 02/15 1027 35 02/15 0831 35 02/15 0800 96 Ventilator 35% 02/15 0800 98.4 74 20 94/50 96 Nasal 2.0L Cannula 02/15 0557 35 02/15 0400 96 Ventilator 35% 02/15 0316 35 02/15 0033 35 02/15 0000 97.2 92 22 105/54 93 Ventilator 35% 02/15 0000 93 Ventilator 35% 02/14 2241 35 Intake & Output 02/15 1600 02/15 0800 02/15 0000 02/14 1600 02/14 0800 02/14 0000 Intake Total 1363 1039 0853 606 0741 1297.6 Output Total 6183 599 5579 1600 1690 1170 Balance 263 539 -155 -703 -542 127.6 Intake, IV 465 205 394 258 238 237.6 Intake, Oral 0 0 0 Intake, Other 100 100 Intake, Tube 458 419 411 369 520 520 Feeding Intake, Tube 340 415 520 170 390 540 Irrigant Number 0 0 0 0 Bowel Movements Output, Urine 6996 518 2898 1600 1690 1170 Physical Exam: General: WD/WN male. Intubated and sedated. Heart: RRR w/o murmur Lungs: clear bilaterally Extremities: no edema, feet are warm bilaterally Assessment/Plan Assessment/Plan * Patient is hemodynamically stable in a sinus rhythm. No arrhythmias. Lungs are clear. Continue to diurese with Lasix as tolerated by blood pressure. Continue potassium supplementation while on Lasix. * This patient will need an eventual cardiac catheterization but he is not stable for this procedure at this time. Continue NTG, aspirin and statin. Continue telemetry? Yes
[2017-02-15 22:00] VITALS: BP 110/65
[2017-02-15 22:45] LABS: PTT 80 SEC (25-37)
[2017-02-16 05:39] LABS: ABSOLUTE BASOPHIL COUNT 0 /CUMM (0.0-0.2); ABSOLUTE EOSINOPHIL COUNT 0.1 /CUMM (0.0-0.7); ABSOLUTE GRANULOCYTE CT 16.6 /CUMM (1.4-6.5); ABSOLUTE LYMPH COUNT 2.2 /CUMM (1.2-3.4); ABSOLUTE MONOCYTE COUNT 1.5 /CUMM (0.10-0.60); BASOPHIL % 0.1 % (0.0-2.0); EOSINOPHIL % 0.5 % (0-5); GRANULOCYTE % 81.2 % (42.2-75.2); HEMATOCRIT 29.7 % (42-52); MEAN CORPUSCULAR HGB CONC 32.1 G/DL (33.0-37.0); MEAN CORPUSCULAR VOLUME 84.2 FL (80.0-94.0); MEAN PLATELET VOLUME 9.7 FL (7.4-10.4); PLATELET COUNT 215 /CUMM (130-400); RBC DISTRIBUTION WIDTH 19.5 % (11.5-14.5); RED BLOOD CELL CT 3.53 /CUMM (4.70-6.10); WHITE BLOOD CELL COUNT 20.5 /CUMM (4.8-10.8)
--- NOTE | 2017-02-16 06:59 | PN- Resident CRCU ---
Subjective HPI/CRCU Issues: Patient seen and examined at bedside this AM. He is laying comfortably in bed in no acute distress and is able to follow commands. Patient denies pain. He will undergo weaning trial today and if he does well and his ABG is adequate, attempt at liberation will be done. Of note, patient was febrile to 101.5 last night at which time he was pancultures- easley catheter and central line will be removed and patient will be started on IV ceftriaxone as his urine is growing ecoli. 24 Hour Events: Vital signs last 24 hours: T 98.3-101.5 (at midnight), HR 86-104, RR 14-30, BP 92-123/55-70, O2 94-98% on AC RR 14 TV 550 FiO2 35 % 5 PEEP. Total intake last 24 hours: 3769 cc Total output last 24 hours: 3270 cc Objective Vital Signs & I&O Last 8 Hrs of Vitals and I&O: T 98.3-101.5 (at midnight), HR 86-104, RR 14-30, BP 92-123/55-70, O2 94-98% on AC RR 14 TV 550 FiO2 35 % 5 PEEP. Exam General Appearance: well developed/nourished, no apparent distress, alert, awake , comfortable, intubated Head: atraumatic, normal appearance Ears, Nose, Throat: normal pharynx, Slightly dry mucous membranes Neck: normal inspection, supple, No JVD Respiratory: normal breath sounds, chest non-tender, no respiratory distress, quiet respiration Cardiovascular: regular rate/rhythm Gastrointestinal: normal bowel sounds, soft, non-tender Extremities: normal inspection, no edema Cranial Nerves: normal hearing, PERRL Skin: intact, warm/dry Skin Temp/Moisture Exam: Warm/Dry Weaning Parameters NIF: 41 Minute Volume: 13.0 Resp rate: 26 Vt: 501 Heart Rate: 96 Weaning Schedule Start Time: 1037 Minute Volume: 10.7 Resp Rate: 20 Vt: 539 Heart Rate: 96 End Time: 1234 Minute Volume: 11.0 Resp Rate: 22 Vt: 500 Heart Rate: 91 Nutrition Nutrition: tube feeding Current Medications: Current Medications Sig/Lillie Start time Last Medication Dose Route Stop Time Status Admin Acetaminophen 1,000 MG Q6P PRN 02/16 0745 AC 02/16 N/A 1 UNIT IV 0822 Acetaminophen 650 MG Q6P PRN 02/03 2000 AC 02/16 PO 0026 Acetaminophen 1,000 MG Q6P PRN 02/02 2000 AC 02/13 IV 0832 Albuterol Sulfate 3 ML EVERY 4 HRS/AWAKE 02/07 1200 AC 02/16 INH 0751 Albuterol Sulfate 2 PUF Q4-6 PRN PRN 02/03 0645 AC 02/04 INH 2320 Aspirin 81 MG DAILY 02/08 1609 AC 02/16 PO 0935 Budesonide/ 2 PUF BID 02/03 1000 AC 02/16 Formoterol Fumarate INH 0800 Ceftriaxone Sodium 1,000 MG DAILY 02/16 1032 AC IV Folic Acid 1 MG DAILY 02/07 1000 AC 02/16 PO 0935 Furosemide 80 MG Q8 02/09 0730 AC 02/16 IV 0618 Gabapentin 300 MG Q8 02/03 0620 AC 02/16 PO 0616 Heparin Sodium 25,000 UNIT Q16H 02/11 1230 AC 02/16 (Porcine) IV 0618 Sodium Chloride 500 ML Magnesium Oxide 400 MG BID 02/06 1000 AC 02/15 PO 2102 Multivitamins 1 TAB DAILY 02/07 1000 AC 02/16 PO 0936 Nitroglycerin 0.5 GM Q6 02/08 1800 AC 02/16 TOP 0619 Nystatin 1 NEO DAILY 02/14 1152 AC 02/16 TOP 0936 Pantoprazole Sodium 40 MG DAILY 02/09 1000 AC 02/16 IV 0935 Phosphate 500 MG AT BEDTIME 02/15 2200 AC 02/15 PO 2103 Polyethylene Glycol 17 GM DAILY 02/12 1047 AC 02/16 PO 0935 Potassium Chloride 20 MEQ Q1H 02/16 0615 DC 02/16 IV 02/16 0716 0821 Potassium Chloride 40 MEQ DAILY 02/09 1000 AC 02/16 PO 0937 Pravastatin Sodium 40 MG 1700 02/04 1700 AC 02/15 PO 1543 Prednisone 20 MG DAILY 02/16 1000 AC 02/16 PO 0935 Senna 187 MG AT BEDTIME PRN 02/12 1100 AC 02/12 PO 1125 Thiamine HCl 50 MG DAILY 02/07 1000 AC 02/16 PO 0935 Tiotropium [place] 1 PUF DAILY 02/05 1208 AC 02/08 INH 1045 Impression/Plan Impression/Problem List Impression: Mr. Flores is a pleasant 61 year old male with PMH asthma, dyslipidemia, alcohol abuse, previous alcohol withdrawl seizure, and DVT x 2 (2014, August 2016) currently on coumadin who presented with chief complaint of several episodes of coffe-ground emesis and dark, tarry stools without overt blood/ clots. Associated symptoms at time of presentation included easy bleeding/ brusing of his extremities and dyspnea on exertion. Of note, patient was started on anticoagulation with his second episode of DVT in August of 2016. He was inadvertently placed on both xarelto by his PCP and Coumadin by Dr. De Santiago, vascular surgery, until 1-2 weeks later when this was noted and his PCP discontinued Xarelto. In the ED: Vital signs showed a Tmax of 994. HR 117, RR 22, BP 99/54 and O2 saturation of 99% on room air. Labs were significant for H&H 5.3/16.7, Plt 259, Na 131, K 4.1, HCO3 16, Cre 0.6 , Ca 8, Albumin 2.5, INR >10. EKG showed sinus tachycardia and no significant ST/T wave changes. Patient is currently admitted to the ICU and the following is the management: 1. Acute blood loss anemia secondary to GI bleed in the setting of supratherapeutic INR * GI consult placed and appreciated, continue to follow recommendations * Continue to hold coumadin, no further bleeding has been noted * Patient is s/p EGD which was grossly normal, no active bleeding * Patient will require colonoscopy likely as an outpatient after discharge * CBC now stable after 6 units prbcs total, 2 U given in the OR during thrombectomy and fasciotomy * INR now subtherapeutic after total of 4 units FFP, patient s/p IVC filter placement with IR * Patient continued on heparin drip for therapeutic PTT due to concerns for ST changes/LLE thrombosis * IV protonix daily * Strict Is/Os, continue net negative fluid balance 2. New onset fever with leukocytosis * Increasing WBC while reducing steroids along with Tmax of 101.5 overnight is concerning for infection * Source possibly urine as gram-negative rods grown * ID consult appreciated * Repeat UA, obtain renal US, remove right IJ, remove easley catheter and begin ceftriaxone 1 g IV Q24 hours 3. Elevated troponins * Troponins peaked at 4.[address] elevations, currently EKG improving and troponins trending down * Heparin drip continued * Cardio consult placed and appreciated, continue to follow recomendations * NTG paste 1/2 inch, aspirin, statin * Echocardiogram shows normal EF at 60%, trace MR, mild-mod TR, moderate pulm HTN * Patient will likely require cardiac cath after discharge and once stable from a respiratory standpoint 4. Alcohol abuse * CIWA scoring discontinued as patient only scoring 0 * Alcohol cessation information and counseling provided * Continue MV, thiamine, folate 5. History of DVT with non-palpable pedal pulses * Bilateral lower extremity venous dopplers showed extensive left lower extremity near occlusive DVT, no RLE DVT * Hold coumadin; Patient now s/p IVC filter placement and will continue heparin * Patient POD #7 from fasciotomy with LLE thrombectomy with vascular surgery and now LLE has improved warmth/color/dopplerable pulse * Continue daily dressing changes * Continue to follow vascular recommendations 6. Acute respiratory distress in setting of likely underlying COPD * Consideration for fluid overload in the setting of frequent transfusions vs ARDS * Respiratory status much improved, patient awake and alert and no longer fluid overloaded, will trial him today and if he does well will likely proceed with extubation * Lasix decreased to 40 IV BID as patient euvolemic * Titrate down FiO2 to maintain sat >92% * Continue PO prednisone 20 mg tomorrow 7. Chronic pain * Continue neurontin 300 mg PO Q8 * PO tylenol for mild pain, IV tylenol for moderate pain 8. Dietary * Nutrition consult appreciated * Continue Jevity for tube feeds, tolerating well; will obtain nutrition consult after extubation FULL CODE DVTP: Heparin IV Tube Feeds Mild-moderate pain pathway Problem List: 1. Acute respiratory distress 2. GI bleed 3. DVT (deep venous thrombosis) 4. ETOH ABUSE 5. H/O fasciotomy Pain Ratin Tomorrow's Labs & Rationales: CBC (leukocytosis) ICU bundle (aggressive diuresis) Plan DVT/Prophylaxis: mechanical (no pharm 2/2 acute blood loss)
[2017-02-16 08:00] VITALS: BP 120/68
--- NOTE | 2017-02-16 09:13 | NUR ---
PT TEMP 101.3. APAP IV GIVEN. ICE MERVAT X 3. 2 PIV'S PLACED IN ANTICIPATION OF RIJ DISCONTINUATION. DISCUSSED TRENDING ELEVATION IN WBCS AND ABOVE W DR SANCHEZ AND DR VILLEGAS.
[2017-02-16 09:55] LABS: PTT 76 SEC (25-37)
--- NOTE | 2017-02-16 10:14 | PN- Infect Dx ---
Subjective Subjective: MAXIMUM TEMPERATURE 101.5 on steroids. He does not indicate any discomfort. Objective Last 24 Hrs of Vital Signs/I&O Vital Signs Date Time Temp Pulse Resp B/P B/P Pulse O2 O2 Flow FiO2 Mean Ox Delivery Rate 02/16 0932 99.1 02/16 0822 101.3 02/16 0800 101.3 105 27 120/68 96 Ventilator 35% 02/16 0746 35 02/16 0620 35 02/16 0421 35 02/16 0400 94 Ventilator 35% 02/16 0243 35 02/16 0026 101.5 02/16 0000 97 Ventilator 35% 02/15 2225 35 02/15 2200 101.5 98 22 110/65 98 Ventilator 35% 02/15 2020 35 02/15 1934 96 Ventilator 35% 02/15 1650 35 02/15 1600 97 Ventilator 35% 02/15 1600 98.3 95 19 110/60 97 Ventilator 35% 02/15 1325 35 02/15 1200 95 Ventilator 35% 02/15 1027 35 Intake & Output 02/16 1600 02/16 0800 02/16 0000 Intake Total 1198 1257.6 Output Total 560 1560 Balance 638 -302.4 Intake, IV 238 237.6 Intake, Tube 520 520 Feeding Intake, Tube 440 500 Irrigant Output, Urine 560 1560 Physical Exam Other Physical Findings: He is awake and alert on the ventilator Neck right IJ triple lumen catheter with no inflammation at the site Lungs are clear Heart regular rhythm with no murmur Abdomen is soft, nontender with positive bowel sounds Extremities left leg swelling compared to the right leg; left leg incision clean , with dried blood on the dressing, with no erythema, slightly tender to palpation Meyer catheter remains in place Results Last 24 Hours of Lab Results: Laboratory Tests 02/16 02/16 02/15 02/15 0935 0445 2200 1400 Chemistry Sodium (137 - 145 mmol/L) 148 H 143 Potassium (3.5 - 5.1 mmol/L) 3.1 L 3.9 Chloride (98 - 107 mmol/L) 106 107 Carbon Dioxide (22 - 30 mmol/L) 32 H 31 H Anion Gap (5 - 16) 10 6 BUN (9 - 20 mg/dL) 30 H 25 H Creatinine (0.7 - 1.2 mg/dL) 0.6 L 0.5 L Estimated GFR (>60 ml/min) > 60 > 60 Glucose (65 - 99 mg/dL) 101 H 187 H Calcium (8.4 - 10.2 mg/dL) 8.4 8.5 Phosphorus (2.5 - 4.5 mg/dL) 4.7 H 3.9 Magnesium (1.6 - 2.3 mg/dL) 2.5 H 2.4 H Total Bilirubin (0.2 - 1.3 mg/dL) 0.9 0.9 AST (17 - 59 U/L) 40 46 ALT (21 - 72 U/L) 75 H 76 H Albumin (3.5 - 5.0 g/dL) 2.9 L 2.9 L Coagulation APTT (25 - 37 SEC) 76 H 80 H Hematology CBC w Diff NO MAN DIFF REQ WBC (4.8 - 10.8 /CUMM) 20.5 H RBC (4.70 - 6.10 /CUMM) 3.53 L Hgb (14.0 - 18.0 G/DL) 9.5 L Hct (42 - 52 %) 29.7 L MCV (80.0 - 94.0 FL) 84.2 MCH (27.0 - 31.0 PG) 27.0 RDW (11.5 - 14.5 %) 19.5 H Plt Count (130 - 400 /CUMM) 215 MPV (7.4 - 10.4 FL) 9.7 Gran % (42.2 - 75.2 %) 81.2 H Lymphocytes % (20.5 - 51.1 %) 10.8 L Monocytes % (1.7 - 9.3 %) 7.4 Eosinophils % (0 - 5 %) 0.5 Basophils % (0.0 - 2.0 %) 0.1 Absolute Granulocytes (1.4 - 6.5 /CUMM) 16.6 H Absolute Lymphocytes (1.2 - 3.4 /CUMM) 2.2 Absolute Monocytes (0.10 - 0.60 /CUMM) 1.5 H Absolute Eosinophils (0.0 - 0.7 /CUMM) 0.1 Absolute Basophils (0.0 - 0.2 /CUMM) 0 PUBS MCHC (33.0 - 37.0 G/DL) 32.1 L Last 24 Hours of Rahat Results: Blood cultures February 15 negative Blood cultures February 16 pending Urine culture May 22 approximately 10,000 colonies of gram-negative rods Sputum culture May 21 moderate growth of yeast with mixed francisco Assessment/Plan Impression: New onset of fever with an increasing white blood cell count despite the tapering of his steroids raising concern for a new infectious process, possibly from the urinary tract, with the indwelling Meyer and with 10,000 colonies of gram-negative rods, with blood cultures remaining negative and sputum culture only mixed francisco in the setting of an improving respiratory status. His left leg wounds appears clean now 8 days status post left leg thrombectomy of the popliteal and superficial femoral arteries secondary to an acute thrombus and compartment fasciotomy. Suggestion: 1. Repeat urinalysis 2. Renal ultrasound 3. Remove Meyer catheter 4. Remove right IJ triple-lumen catheter 5. Continue to taper steroids per Pulmonary 6. Begin Ceftriaxone 1 g IV every 24 hours pending recent cultures
--- NOTE | 2017-02-16 11:02 | PN- CRCU ---
Subjective HPI/Critical Care Issues: The patient is awake and alert. He remains on mechanical ventilation. There were no overnight events. Objective Current Medications: Current Medications Sig/Lillie Start time Last Medication Dose Route Stop Time Status Admin Acetaminophen 1,000 MG Q6P PRN 02/16 0745 AC 02/16 N/A 1 UNIT IV 0822 Acetaminophen 650 MG Q6P PRN 02/02 2000 AC 02/16 PO 0026 Acetaminophen 1,000 MG Q6P PRN 02/02 2000 AC 02/13 IV 0832 Albuterol Sulfate 3 ML EVERY 4 HRS/AWAKE 02/07 1200 AC 02/16 INH 0751 Albuterol Sulfate 2 PUF Q4-6 PRN PRN 02/03 0645 AC 02/04 INH 2320 Aspirin 81 MG DAILY 02/08 1609 AC 02/16 PO 0935 Budesonide/ 2 PUF BID 02/03 1000 AC 02/16 Formoterol Fumarate INH 0800 Ceftriaxone Sodium 1,000 MG DAILY 02/16 1032 AC IV Folic Acid 1 MG DAILY 02/07 1000 AC 02/16 PO 0935 Furosemide 80 MG Q8 02/09 0730 AC 02/16 IV 0618 Gabapentin 300 MG Q8 02/03 0620 AC 02/16 PO 0616 Heparin Sodium 25,000 UNIT Q16H 02/11 1230 AC 02/16 (Porcine) IV 0618 Sodium Chloride 500 ML Magnesium Oxide 400 MG BID 02/06 1000 AC 02/15 PO 2102 Multivitamins 1 TAB DAILY 02/07 1000 AC 02/16 PO 0936 Nitroglycerin 0.5 GM Q6 02/08 1800 AC 02/16 TOP 0619 Nystatin 1 NEO DAILY 02/14 1152 AC 02/16 TOP 0936 Pantoprazole Sodium 40 MG DAILY 02/09 1000 AC 02/16 IV 0935 Phosphate 500 MG AT BEDTIME 02/15 2200 AC 02/15 PO 2103 Polyethylene Glycol 17 GM DAILY 02/12 1047 AC 02/16 PO 0935 Potassium Chloride 20 MEQ Q1H 02/16 0615 DC 02/16 IV 02/16 0716 0821 Potassium Chloride 40 MEQ DAILY 02/09 1000 AC 02/16 PO 0937 Pravastatin Sodium 40 MG 1700 / 1700 AC 02/15 PO 1543 Prednisone 20 MG DAILY 02/16 1000 AC 02/16 PO 0935 Senna 187 MG AT BEDTIME PRN 02/12 1100 AC 02/12 PO 1125 Thiamine HCl 50 MG DAILY 02/07 1000 AC 02/16 PO 0935 Tiotropium [place] 1 PUF DAILY 02/05 1208 AC 02/08 INH 1045 Vital Signs & I&O Last 24 Hrs of Vitals and I&O: Vital Signs Date Time Temp Pulse Resp B/P B/P Pulse O2 O2 Flow FiO2 Mean Ox Delivery Rate 02/16 0932 99.1 02/16 0822 101.3 02/16 0800 101.3 105 27 120/68 96 Ventilator 35% 02/16 0800 96 Ventilator 35% 02/16 0746 35 02/16 0620 35 02/16 0421 35 02/16 0400 94 Ventilator 35% 02/16 0243 35 02/16 0026 101.5 02/16 0000 97 Ventilator 35% 02/15 2225 35 02/15 2200 101.5 98 22 110/65 98 Ventilator 35% 02/15 2020 35 02/15 1934 96 Ventilator 35% 02/15 1650 35 02/15 1600 97 Ventilator 35% 02/15 1600 98.3 95 19 110/60 97 Ventilator 35% 02/15 1325 35 02/15 1200 95 Ventilator 35% Intake & Output 02/16 1600 02/16 0800 02/16 0000 Intake Total 1198 1257.6 Output Total 560 1560 Balance 638 -302.4 Intake, IV 238 237.6 Intake, Tube 520 520 Feeding Intake, Tube 440 500 Irrigant Output, Urine 560 1560 Exam General Appearance: intubated and sedated, comfortable Head: atraumatic, normal appearance Neck: supple Respiratory: bilateral wheezing and crackles scattered throughout, lungs expand symmetrically Cardiovascular: regular rate/rhythm Abdomen: normal bowel sounds, soft, non-tender Extremities: right lower extremity warm and dry, left lower extremity dressings in place, warm compress applied Skin: intact, normal color, warm/dry Results Last 24 Hrs of Lab Results: Laboratory Tests 02/16/17 0935: APTT 76 H 02/16/17 0445: Anion Gap 10, Estimated GFR > 60, Glucose 101 H, Calcium 8.4, Phosphorus 4.7 H , Magnesium 2.5 H, Total Bilirubin 0.9, AST 40, ALT 75 H, Albumin 2.9 L, CBC w Diff NO MAN DIFF REQ, RBC 3.53 L, MCV 84.2, MCH 27.0, RDW 19.5 H, MPV 9.7, Gran % 81.2 H, Lymphocytes % 10.8 L, Monocytes % 7.4, Eosinophils % 0.5, Basophils % 0.1, Absolute Granulocytes 16.6 H, Absolute Lymphocytes 2.2, Absolute Monocytes 1.5 H, Absolute Eosinophils 0.1, Absolute Basophils 0, PUBS MCHC 32.1 L 02/15/17 2200: APTT 80 H 02/15/17 1400: Anion Gap 6, Estimated GFR > 60, Glucose 187 H, Calcium 8.5, Phosphorus 3.9, Magnesium 2.4 H, Total Bilirubin 0.9, AST 46, ALT 76 H, Albumin 2.9 L Impression/Plan Impression/Plan Impression/Plan: 1. Left lower extremity ischemia, status post left groin cutdown with left leg angiogram and embolectomy with fasciotomy. 2. Acute hypoxemic respiratory failure, improving. 3. COPD with improved bronchospasm. 4. Electrolyte abnormalities. 5. Acute DC. 6. Recurrent lower extremity DVTs, status post IVC filter. 7. Patient initially admitted with a GI bleed, no evidence of active bleeding at present. Recommendations: * Check a portable chest x-ray to ensure adequate positioning of all lines and tubes. * Titrate oxygen down for sats greater than 92%. * Continue with weaning trials, will extubate when the patient is more awake and alert and has acceptable parameters. * Continue with diuresis as recommended by cardiology. * Continue heparin drip for therapeutic PTT. * Monitor off sedation. * Continue TRC for nebulizer treatments. * Change to prednisone 20 mg daily, will slowly taper off. * Continue tube feeds at goal. * Continue MVI/thiamine/folate. * IV Protonix. * Continue Vent bundle q shift. * Continue all current support.
--- NOTE | 2017-02-16 11:44 | NUR ---
PT STARTED WEAN TRIAL 09, 01/30, STARTED T PIECE AT 1106. TOLERATING WELL. AWAITING ABG RESULTS AND ORDER FOR EXTUBATION.
--- NOTE | 2017-02-16 11:46 | NUR ---
UC AND URINALYSIS OBTAINED AND SENT TO LAB
--- NOTE | 2017-02-16 12:12 | RADIOLOGY REPORT ---
EXAMINATION: XR PORTABLE CHEST CLINICAL INFORMATION: Endotracheal tube placement. COMPARISON: Several prior chest x-rays, most recent of which is dated 02/15/2017. TECHNIQUE: Portable AP semierect view of the chest was obtained. FINDINGS: Endotracheal tube approximately 3 cm above the tin. Enteric tube seen with tip projected over the gastric fundus region. Right jugular central venous line in place with tip at the cavoatrial junction. The cardiac mediastinal silhouette is within normal limits in size. Calcification of the aortic arch is seen. Prominence of the ascending aortic contour is seen, likely related to patient rotation. Low lung volumes are noted with crowding of bronchovascular markings in the lung bases bilaterally. No focal consolidation, effusion or pneumothorax is seen. Structures are grossly unremarkable. IMPRESSION: 1. Endotracheal tube tip approximately 3 cm above the tin. 2. Enteric tube tip objects over the gastric fundus region. 3. Right jugular central venous line tip at cavoatrial junction. 4. Low lung volumes without focal pulmonary process.
--- NOTE | 2017-02-16 12:30 | NUR ---
EXTUBATED AT 1220. PLACED ON AEROSOL MASK AT 35%. SCATTERED RHONCHI, SAT 97% SWAL EVAL ORDER PLACED
--- NOTE | 2017-02-16 14:52 | ULTRASOUND REPORT ---
EXAMINATION: US RETROPERITONEAL COMPLETE (RENAL) CLINICAL INFORMATION: Escherichia coli in urine. Elevated white blood cell count. Fever. Presumptive diagnosis of hydronephrosis. COMPARISON: CT scan of the chest dated 02/06/2017. TECHNIQUE: Real-time imaging of the kidneys and bladder. FINDINGS: Evaluation is significantly limited due to portable exam. RIGHT KIDNEY: 11.8 x 6.5 x 5.8 cm (SAG x AP x TRV). The kidney is normal in size and contour. Renal cortical thickness is grossly normal. No definite calculi or focal parenchymal lesions. No hydronephrosis. Renal cortical echogenicity poorly assessed. LEFT KIDNEY: Not seen due to shadowing by bowel gas. BLADDER: Decompressed by a Meyer catheter and not adequately assessed. Bilateral ureteral jets are not demonstrated. IMPRESSION: Limited exam. Right kidney grossly unremarkable. Left kidney not visualized.
[2017-02-16 16:00] VITALS: BP 100/62
[2017-02-16 22:23] LABS: PTT 81 SEC (25-37)
[2017-02-17] VITALS: BP 98/58
--- NOTE | 2017-02-17 03:09 | Event Note ---
Event Note Event Note: brief : one/four bottles positve for gram positive cocci clusters v/s chain as per lab. patient is currently on ceftrixone, will not change Ax for now, will ct to follow.
[2017-02-17 05:11] LABS: ABSOLUTE BASOPHIL COUNT 0 /CUMM (0.0-0.2); ABSOLUTE EOSINOPHIL COUNT 0.1 /CUMM (0.0-0.7); ABSOLUTE GRANULOCYTE CT 13.5 /CUMM (1.4-6.5); ABSOLUTE LYMPH COUNT 2.3 /CUMM (1.2-3.4); ABSOLUTE MONOCYTE COUNT 0.8 /CUMM (0.10-0.60); BASOPHIL % 0.1 % (0.0-2.0); EOSINOPHIL % 0.4 % (0-5); MEAN CORPUSCULAR HGB 26.6 PG (27.0-31.0); MEAN CORPUSCULAR HGB CONC 31.8 G/DL (33.0-37.0); MEAN CORPUSCULAR VOLUME 83.5 FL (80.0-94.0); PLATELET COUNT 222 /CUMM (130-400); RBC DISTRIBUTION WIDTH 19.3 % (11.5-14.5); RED BLOOD CELL CT 3.23 /CUMM (4.70-6.10); WHITE BLOOD CELL COUNT 16.6 /CUMM (4.8-10.8)
--- NOTE | 2017-02-17 06:53 | PN- Resident CRCU ---
Subjective HPI/CRCU Issues: Patient seen and examined at bedside this AM. He is sitting up in bed much improved from yesterday. He is day 1 after extubation and remains on O2 via nasal cannula. He continues to be NPO as he failed follow up swallow evaluation today; he is scheduled for modified barium swallow later. He denies fever, chills, chest pain, shortness of breath, weakness or nausea. 24 Hour Events: Telemetry events: 7 beat VTach late yesterday evening, otherwise NSR. Vital signs last 24 hours: T 97.3-101.3, HR 74-105, RR 16-27, BP 84-110/50-73, O2 saturation 91-98% 3 L NC. Objective Vital Signs & I&O Last 8 Hrs of Vitals and I&O: T 97.3-101.3, HR 74-105, RR 16-27, BP 84-110/50-73, O2 saturation 91-98% 3 L NC. Exam General Appearance: well developed/nourished, no apparent distress, alert, awake , comfortable Head: atraumatic, normal appearance Ears, Nose, Throat: normal pharynx, hearing grossly normal Neck: normal inspection Respiratory: normal breath sounds, chest non-tender Cardiovascular: regular rate/rhythm Gastrointestinal: normal bowel sounds, soft, non-tender Extremities: normal inspection, no edema Cranial Nerves: normal hearing, normal speech Skin: intact, normal color, warm/dry Skin Temp/Moisture Exam: Warm/Dry Back: normal inspection Weaning Parameters NIF: 40 Minute Volume: 13.5 Resp rate: 29 Vt: 436 Heart Rate: 99 Weaning Schedule Start Time: 0916 Minute Volume: 13.5 Resp Rate: 29 Vt: 436 Heart Rate: 99 End Time: 1103 Minute Volume: 11.4 Resp Rate: 22 Vt: 475 Heart Rate: 93 Nutrition Nutrition: NPO Current Medications: Current Medications Sig/Lillie Start time Last Medication Dose Route Stop Time Status Admin Acetaminophen 1,000 MG Q6P PRN 02/16 0745 AC 02/16 N/A 1 UNIT IV 0822 Acetaminophen 650 MG Q6P PRN 02/02 PO 0026 Acetaminophen 1,000 MG Q6P PRN 02/02 IV 0832 Albuterol Sulfate 3 ML EVERY 4 HRS/AWAKE 02/07 INH 0757 Albuterol Sulfate 2 PUF Q4-6 PRN PRN 02/03 0645 AC 02/04 INH 2320 Aspirin 81 MG DAILY 02/08 1609 AC 02/16 PO 0935 Budesonide/ 2 PUF BID 02/03 1000 AC 02/16 Formoterol Fumarate INH 2133 Ceftriaxone Sodium 1,000 MG DAILY 02/16 1032 DC 02/17 IV 1002 Dextrose/Sodium 1,000 ML Q20H 02/16 1345 AC 02/17 Chloride IV 0956 Folic Acid 1 MG DAILY 02/07 1000 AC 02/16 PO 0935 Furosemide 40 MG DAILY 02/17 1000 AC 02/17 IV 1040 Furosemide 40 MG BID 02/16 2200 DC 02/16 IV 2133 Furosemide 80 MG Q8 02/09 0730 DC 02/16 IV 0618 Gabapentin 300 MG Q8 02/03 0620 AC 02/16 PO 0616 Heparin Sodium 25,000 UNIT Q16H 02/11 1230 AC 02/17 (Porcine) IV 0958 Sodium Chloride 500 ML Ipratropium [place] 2.5 ML EVERY 4 HRS/AWAKE 02/17 1200 AC INH 02/17 2001 Magnesium Oxide 400 MG BID 02/06 1000 DC 02/15 PO 2102 Methylprednisolone 10 MG ONCE ONE 02/17 1100 DC IV 02/17 1101 Multivitamins 1 TAB DAILY 02/07 1000 AC 02/16 PO 0936 Nitroglycerin 0.5 GM Q6 02/08 1800 AC 02/16 TOP 0619 Nystatin 1 NEO DAILY 02/14 1152 AC 02/17 TOP 1003 Pantoprazole Sodium 40 MG DAILY 02/09 1000 AC 02/17 IV 1003 Phosphate 500 MG AT BEDTIME 02/15 2200 DC 02/15 PO 2103 Polyethylene Glycol 17 GM DAILY 02/12 1047 AC 02/16 PO 0935 Potassium Chloride 10 MEQ Q1H 02/17 0700 DC 02/17 IV 02/17 0901 0956 Potassium Chloride 40 MEQ DAILY 02/09 1000 AC 02/16 PO 0937 Pravastatin Sodium 40 MG 1700 02/04 1700 AC 02/15 PO 1543 Prednisone 10 MG DAILY 02/18 1000 CAN PO Prednisone 5 MG ONCE ONE 02/18 1000 AC PO 02/18 1001 Prednisone 20 MG DAILY 02/16 1000 DC 02/16 PO 0935 Senna 187 MG AT BEDTIME PRN 02/12 1100 AC 02/12 PO 1125 Thiamine HCl 50 MG DAILY 02/07 1000 AC 02/16 PO 0935 Tiotropium [place] 1 PUF DAILY 02/05 1208 AC 02/08 INH 1045 Results Results: Urine cultures: 10,000 colonies gram negative rods 02/15/17 collected Blood culture: Gram positive cocci in chains and pairs (1/4 vials) 02/16/17 collected Impression/Plan Impression/Problem List Impression: Mr. Flores is a pleasant 61 year old male with PMH asthma, dyslipidemia, alcohol abuse, previous alcohol withdrawl seizure, and DVT x 2 (2014, August 2016) currently on coumadin who presented with chief complaint of several episodes of coffe-ground emesis and dark, tarry stools without overt blood/ clots. Associated symptoms at time of presentation included easy bleeding/ brusing of his extremities and dyspnea on exertion. Of note, patient was started on anticoagulation with his second episode of DVT in August of 2016. He was inadvertently placed on both xarelto by his PCP and Coumadin by Dr. De Santiago, vascular surgery, until 1-2 weeks later when this was noted and his PCP discontinued Xarelto. In the ED: Vital signs showed a Tmax of 994. HR 117, RR 22, BP 99/54 and O2 saturation of 99% on room air. Labs were significant for H&H 5.3/16.7, Plt 259, Na 131, K 4.1, HCO3 16, Cre 0.6 , Ca 8, Albumin 2.5, INR >10. EKG showed sinus tachycardia and no significant ST/T wave changes. Patient is currently admitted to the ICU and the following is the management: 1. Acute blood loss anemia secondary to GI bleed in the setting of supratherapeutic INR * GI consult placed and appreciated, continue to follow recommendations * Discontinue coumadin, no further bleeding has been noted * Patient is s/p EGD which was grossly normal, no active bleeding; he will require colonoscopy likely as an outpatient * CBC now stable after 6 units prbcs total, 2 U given in the OR during thrombectomy and fasciotomy * INR now subtherapeutic after total of 4 units FFP, patient s/p IVC filter placement with IR * Patient continued on heparin drip for therapeutic PTT due to concerns for ST changes/LLE thrombosis * IV protonix daily while NPO * Strict Is/Os, continue net negative fluid balance 2. New onset fever with leukocytosis * Decreasing WBC while on ceftriaxone (though cultures apparently resistant to ceftriaxone) making urinary source less likely at this time * UA that was repeated noted to be unremarkable, further questioning significance of 10,000 colonies of klebsiella in recent urine culture * ID consult appreciated * Repeat UC today, discontinue and watch off antibiotics 3. Elevated troponins * Troponins peaked at 4.[address] elevations, currently EKG improving and troponins trending down * Heparin drip continued * Cardio consult placed and appreciated, continue to follow recomendations * NTG paste 1/2 inch, aspirin, statin * Echocardiogram shows normal EF at 60%, trace MR, mild-mod TR, moderate pulm HTN * Patient will likely require cardiac cath after discharge and once stable from a respiratory standpoint 4. Alcohol abuse * CIWA scoring discontinued as patient only scoring 0 * Alcohol cessation information and counseling provided * Continue MV, thiamine, folate 5. History of DVT with non-palpable pedal pulses * Bilateral lower extremity venous dopplers showed extensive left lower extremity near occlusive DVT, no RLE DVT * Hold coumadin; Patient now s/p IVC filter placement and will continue heparin * Patient POD #8 from fasciotomy with LLE thrombectomy with vascular surgery and now LLE has improved warmth/color/dopplerable pulse * Continue daily dressing changes * Continue to follow vascular recommendations 6. Acute respiratory distress in setting of likely underlying COPD * Due to fluid overload in the setting of frequent transfusions vs ARDS * Respiratory status much improved, patient s/p extubation yesterday, saturating well on O2 via NC * Lasix decreased to 40 mg daily * Titrate down FiO2 to maintain sat >92% * 10 mg solumedrol today (patient cannot take PO meds at this time) and decrease to 5 mg tomorrow then taper off * PT and OT eval pending 7. Chronic pain * PO tylenol for mild pain, IV tylenol for moderate pain 8. Dietary * Patient currently NPO as he failed bedside swallow evaluation * Pending modified barium swallow, follow up results FULL CODE DVTP: Heparin IV NPO Mild-moderate pain pathway Problem List: 1. Acute respiratory distress 2. H/O fasciotomy 3. GI bleed 4. DVT (deep venous thrombosis) 5. ETOH ABUSE Pain Ratin Tomorrow's Labs & Rationales: CBC (leukocytosis) ICU bundle (hypokalemia, hypernatremia) Plan DVT/Prophylaxis: mechanical (no pharm 2/2 acute blood loss)
[2017-02-17 08:00] VITALS: BP 92/50
--- NOTE | 2017-02-17 09:10 | NUR ---
BEDSIDE SWALLOW EVALUATION PERFORMED. PT FAILED. MBS SCHEDULED FOR 130PM THIS AFTERNOON.
--- NOTE | 2017-02-17 10:21 | PN- CRCU ---
Subjective HPI/Critical Care Issues: The patient is awake and alert. He is doing well post extubation. He continues to have difficulty with dysphasia. Speech therapy has been evaluating the patient and has recommended a modified barium swallow. There were no overnight events reported. Objective Current Medications: Current Medications Sig/Lillie Start time Last Medication Dose Route Stop Time Status Admin Acetaminophen 1,000 MG Q6P PRN 02/16 0745 AC 02/16 N/A 1 UNIT IV 0822 Acetaminophen 650 MG Q6P PRN 02/03 2000 AC 02/16 PO 0026 Acetaminophen 1,000 MG Q6P PRN 02/02 2000 AC 02/13 IV 0832 Albuterol Sulfate 3 ML EVERY 4 HRS/AWAKE 02/07 1200 AC 02/17 INH 0757 Albuterol Sulfate 2 PUF Q4-6 PRN PRN 02/03 0645 AC 02/04 INH 2320 Aspirin 81 MG DAILY 02/08 1609 AC 02/16 PO 0935 Budesonide/ 2 PUF BID 02/03 1000 AC 02/16 Formoterol Fumarate INH 2133 Ceftriaxone Sodium 1,000 MG DAILY 02/16 1032 AC 02/16 IV 1228 Dextrose/Sodium 1,000 ML Q20H 02/16 1345 AC 02/16 Chloride IV 1431 Folic Acid 1 MG DAILY 02/07 1000 AC 02/16 PO 0935 Furosemide 40 MG DAILY 02/17 1000 AC IV Furosemide 40 MG BID 02/16 2200 DC 02/16 IV 2133 Furosemide 80 MG Q8 02/09 0730 DC 02/16 IV 0618 Gabapentin 300 MG Q8 02/03 0620 AC 02/16 PO 0616 Heparin Sodium 25,000 UNIT Q16H 02/11 1230 AC 02/16 (Porcine) IV 1638 Sodium Chloride 500 ML Magnesium Oxide 400 MG BID 02/06 1000 DC 02/15 PO 2102 Multivitamins 1 TAB DAILY 02/07 1000 AC 02/16 PO 0936 Nitroglycerin 0.5 GM Q6 02/08 1800 AC 02/16 TOP 0619 Nystatin 1 NEO DAILY 02/14 1152 AC 02/16 TOP 0936 Pantoprazole Sodium 40 MG DAILY 02/09 1000 AC 02/16 IV 0935 Phosphate 500 MG AT BEDTIME 02/15 2200 DC 02/15 PO 2103 Polyethylene Glycol 17 GM DAILY 02/12 1047 AC 02/16 PO 0935 Potassium Chloride 10 MEQ Q1H 02/17 0700 DC 02/17 IV 02/17 0901 0800 Potassium Chloride 40 MEQ DAILY 02/09 1000 AC 02/16 PO 0937 Pravastatin Sodium 40 MG 1700 02/04 1700 AC 02/15 PO 1543 Prednisone 20 MG DAILY 02/16 1000 AC 02/16 PO 0935 Senna 187 MG AT BEDTIME PRN 02/12 1100 AC 02/12 PO 1125 Thiamine HCl 50 MG DAILY 02/07 1000 AC 02/16 PO 0935 Tiotropium [place] 1 PUF DAILY 02/05 1208 AC 02/08 INH 1045 Vital Signs & I&O Last 24 Hrs of Vitals and I&O: Vital Signs Date Time Temp Pulse Resp B/P B/P Pulse O2 O2 Flow FiO2 Mean Ox Delivery Rate 02/17 0800 97.8 72 20 92/50 96 Nasal 3.0L Cannula 02/17 0800 96 Nasal 3.0L Cannula 02/17 0800 96 Nasal 3.0L Cannula 02/17 0400 94 Nasal 3.0L Cannula 02/17 0000 97.5 80 17 98/58 92 Nasal 3.0L Cannula 02/17 0000 94 Nasal 3.0L Cannula 02/16 2000 94 Nasal 2.0L Cannula 02/16 1600 97.7 86 18 100/62 94 Nasal 3.0L Cannula 02/16 1600 94 Nasal 3.0L Cannula Intake & Output 02/17 1600 02/17 0800 02/17 0000 Intake Total 659 813 Output Total 500 550 Balance 159 263 Intake, IV 659 813 Output, Urine 500 550 Exam General Appearance: extubated, comfortable Head: atraumatic, normal appearance Neck: supple Respiratory: improved air entry, lungs expand symmetrically Cardiovascular: regular rate/rhythm Abdomen: normal bowel sounds, soft, non-tender Extremities: right lower extremity warm and dry, left lower extremity dressings in place, warm compress applied Skin: intact, normal color, warm/dry Results Last 24 Hrs of Lab Results: Laboratory Tests 02/17/17 0425: Anion Gap 8, Estimated GFR > 60, Glucose 96, Calcium 8.2 L, Phosphorus 3.7, Magnesium 2.4 H, Total Bilirubin 1.1, AST 31, ALT 64, Albumin 2.8 L, CBC w Diff NO MAN DIFF REQ, RBC 3.23 L, MCV 83.5, MCH 26.6 L, RDW 19.3 H, MPV 10.0, Gran % 81.0 H, Lymphocytes % 13.6 L, Monocytes % 4.9, Eosinophils % 0.4, Basophils % 0.1, Absolute Granulocytes 13.5 H, Absolute Lymphocytes 2.3, Absolute Monocytes 0.8 H, Absolute Eosinophils 0.1, Absolute Basophils 0, PUBS MCHC 31.8 L 02/16/17 2155: APTT 81 H 02/16/17 1150: pH 7.56 H, pCO2 31 L, pO2 114 H, HCO3 27, ABG O2 Sat (Measured) 98.0, P-50 ( Temp Corrected) N, Carboxyhemoglobin 0.5 L, O2 Concentration % 35%, Temperature 99.1, O2 Delivery Method T-PIECE, Phlebotomy Draw Site LEFT RADIAL 02/16/17 1150: pH Cancelled, pCO2 Cancelled, pO2 Cancelled, HCO3 Cancelled, ABG O2 Sat ( Measured) Cancelled, P-50 (Temp Corrected) Cancelled, Carboxyhemoglobin Cancelled, O2 Concentration % Cancelled, Temperature Cancelled, O2 Delivery Method Cancelled, Phlebotomy Draw Site Cancelled 02/16/17 1130: Urine Color YEL, Urine Clarity CLEAR, Urine pH 7.0, Ur Specific [place] 1.010, Urine Protein NEG, Urine Ketones NEG, Urine Nitrite NEG, Urine Bilirubin NEG, Urine Urobilinogen >=8.0 H, Ur Leukocyte Esterase NEG, Ur Microscopic EXAM NOT REQUIRED, Urine Hemoglobin NEG, Urine Glucose NEG Impression/Plan Impression/Plan Impression/Plan: 1. Left lower extremity ischemia, status post left groin cutdown with left leg angiogram and embolectomy with fasciotomy. 2. Acute hypoxemic respiratory failure, improved, s/p extubation. 3. COPD. 4. Electrolyte abnormalities. 5. Acute HI. 6. Recurrent lower extremity DVTs, status post IVC filter. 7. Patient initially admitted with a GI bleed, no evidence of active bleeding at present. Recommendations: * Decrease Lasix to 40 mg daily. * Follow up speech therapy recommendations, will order a modified barium swallow. * Continue heparin drip for therapeutic PTT. * Continue TRC for nebulizer treatments. * Prednisone 10 mg today, 5 mg tomorrow then discontinue. * Continue MVI/thiamine/folate. * Physical therapy consult/increase activity/out of bed to chair. * Continue all current support.
--- NOTE | 2017-02-17 10:24 | PN- Infect Dx ---
Subjective Subjective: Afebrile on steroids without complaints. He was extubated yesterday without complications. Objective Last 24 Hrs of Vital Signs/I&O Vital Signs Date Time Temp Pulse Resp B/P B/P Pulse O2 O2 Flow FiO2 Mean Ox Delivery Rate 02/17 08 97.8 72 20 92/50 96 Nasal 3.0L Cannula 02/17 0800 96 Nasal 3.0L Cannula 02/17 0800 96 Nasal 3.0L Cannula 02/17 0400 94 Nasal 3.0L Cannula 02/17 0000 97.5 80 17 98/58 92 Nasal 3.0L Cannula 02/17 0000 94 Nasal 3.0L Cannula 02/17 2000 94 Nasal 2.0L Cannula 02/17 1600 97.7 86 18 100/62 94 Nasal 3.0L Cannula 02/16 1600 94 Nasal 3.0L Cannula Intake & Output 02/17 1600 02/17 0800 02/17 0000 Intake Total 659 813 Output Total 500 550 Balance 159 263 Intake, IV 659 813 Output, Urine 500 550 Physical Exam Other Physical Findings: He appears comfortable in no acute distress Lungs crackles at the left base Heart regular rhythm with no murmur Abdomen is soft, nontender with positive bowel sounds Extremities left foot well perfused; left leg dressings intact Results Last 24 Hours of Lab Results: Laboratory Tests 02/17 02/16 02/16 0425 2155 1150 Blood Gas pH (7.35 - 7.45 PH) 7.56 H pCO2 (35 - 45 TORR) 31 L pO2 (80 - 100 TORR) 114 H HCO3 (21 - 28 MEQ/L) 27 ABG O2 Sat (Measured) (>96.0 %) 98.0 P-50 (Temp Corrected) N Carboxyhemoglobin (1.5 - 5.0 %) 0.5 L O2 Concentration % 35% Temperature (97.0 - 100.0 FARH) 99.1 O2 Delivery Method T-PIECE Chemistry Sodium (137 - 145 mmol/L) 146 H Potassium (3.5 - 5.1 mmol/L) 3.1 L Chloride (98 - 107 mmol/L) 112 H Carbon Dioxide (22 - 30 mmol/L) 27 Anion Gap (5 - 16) 8 BUN (9 - 20 mg/dL) 26 H Creatinine (0.7 - 1.2 mg/dL) 0.5 L Estimated GFR (>60 ml/min) > 60 Glucose (65 - 99 mg/dL) 96 Calcium (8.4 - 10.2 mg/dL) 8.2 L Phosphorus (2.5 - 4.5 mg/dL) 3.7 Magnesium (1.6 - 2.3 mg/dL) 2.4 H Total Bilirubin (0.2 - 1.3 mg/dL) 1.1 AST (17 - 59 U/L) 31 ALT (21 - 72 U/L) 64 Albumin (3.5 - 5.0 g/dL) 2.8 L Coagulation APTT (25 - 37 SEC) 81 H Hematology CBC w Diff NO MAN DIFF REQ WBC (4.8 - 10.8 /CUMM) 16.6 H RBC (4.70 - 6.10 /CUMM) 3.23 L Hgb (14.0 - 18.0 G/DL) 8.6 L Hct (42 - 52 %) 27.0 L MCV (80.0 - 94.0 FL) 83.5 MCH (27.0 - 31.0 PG) 26.6 L RDW (11.5 - 14.5 %) 19.3 H Plt Count (130 - 400 /CUMM) 222 MPV (7.4 - 10.4 FL) 10.0 Gran % (42.2 - 75.2 %) 81.0 H Lymphocytes % (20.5 - 51.1 %) 13.6 L Monocytes % (1.7 - 9.3 %) 4.9 Eosinophils % (0 - 5 %) 0.4 Basophils % (0.0 - 2.0 %) 0.1 Absolute Granulocytes (1.4 - 6.5 /CUMM) 13.5 H Absolute Lymphocytes (1.2 - 3.4 /CUMM) 2.3 Absolute Monocytes (0.10 - 0.60 /CUMM) 0.8 H Absolute Eosinophils (0.0 - 0.7 /CUMM) 0.1 Absolute Basophils (0.0 - 0.2 /CUMM) 0 PUBS MCHC (33.0 - 37.0 G/DL) 31.8 L Miscellaneous Phlebotomy Draw Site LEFT RADIAL 02/16 02/16 1150 1130 Blood Gas pH Cancelled pCO2 Cancelled pO2 Cancelled HCO3 Cancelled ABG O2 Sat (Measured) Cancelled P-50 (Temp Corrected) Cancelled Carboxyhemoglobin Cancelled O2 Concentration % Cancelled Temperature Cancelled O2 Delivery Method Cancelled Miscellaneous Phlebotomy Draw Site Cancelled Urines Urine Color (YEL,AMB,STR) YEL Urine Clarity (CLEAR) CLEAR Urine pH (5.0 - 8.0) 7.0 Ur Specific [place] (1.001 - 1.035) 1.010 Urine Protein (NEG,<30 MG/DL) NEG Urine Ketones (NEG) NEG Urine Nitrite (NEG) NEG Urine Bilirubin (NEG) NEG Urine Urobilinogen (0.1 - 1.0 EU/dl) >=8.0 H Ur Leukocyte Esterase (NEG) NEG Ur Microscopic EXAM NOT REQUIRED Urine Hemoglobin (NEG) NEG Urine Glucose (N MG/DL) NEG Last 24 Hours of Rahat Results: Blood culture February 16 positive for alpha strep Urine culture February 15 approximately 10,000 colonies of Klebsiella resistant to Ceftriaxone, sensitive to Ciprofloxacin and Ceftazidime, but with ESBL being ruled out Recent Imaging Studies: Renal ultrasound February 16 right kidney unremarkable; left kidney not visualized due to shadowing by bowel gas Assessment/Plan Impression: No further fevers and white blood cell count decreasing on Ceftriaxone for a possible urinary tract infection, with approximately 10,000 colonies of Klebsiella isolated from the recent urine culture in the setting of a Meyer catheter, which was removed this morning. The Klebsiella is resistant to Ceftriaxone and, given his improvement despite this, and the negative urinalysis am not sure of the significance of this culture and, therefore, feel that he can be followed off antibiotics pending further evaluation. The positive blood culture for alpha strep likely represents a contaminant and should not require treatment. Suggestion: 1. Repeat urine culture 2. Continue to taper steroids per Pulmonary 3. Discontinue Ceftriaxone and follow off antibiotics
--- NOTE | 2017-02-17 10:51 | NUR ---
OOB W PT TO RECLINER. MAX ASSIST, DIFFICULT TO TURN/PIVOT. TOLERATING BEING OOB IN CHAIR WELL. PT IS SHOWING IMPROVEMENT IN STRENGTH AND MOVMT. NEEDS MUCH ENCOURAGEMENT. STILL SLIGHT CONFUSED, ALTHOUGH CALM AND COOPERATIVE. PROVIDING FREQUENT REORIENTATION
[2017-02-17 12:23] LABS: PTT 80 SEC (25-37)
--- NOTE | 2017-02-17 13:37 | PN- Cardiology ---
Subjective Subjective: * Patient is extubated and communicative. He denies any chest discomfort or shortness of breath. * Patient failed initial swallow evaluation. * sinus rhythm * potassium 3.1 * increased WBC count on prednisone Objective Vital Signs and I&Os Vital Signs Date Time Temp Pulse Resp B/P B/P Pulse O2 O2 Flow FiO2 Mean Ox Delivery Rate 02/18 800 97.8 72 20 92/50 96 Nasal 3.0L Cannula 02/17 08 96 Nasal 3.0L Cannula 02/17 08 96 Nasal 3.0L Cannula 02/17 0400 94 Nasal 3.0L Cannula 02/17 0000 97.5 80 17 98/58 92 Nasal 3.0L Cannula 02/17 0000 94 Nasal 3.0L Cannula 02/16 2000 94 Nasal 2.0L Cannula 02/16 1600 97.7 86 18 100/62 94 Nasal 3.0L Cannula 02/16 1600 94 Nasal 3.0L Cannula Intake & Output 02/17 1600 02/17 0800 02/17 0000 02/16 1600 02/16 0800 02/16 0000 Intake Total 186 709 7117 1198 1257.6 Output Total 064 780 0691 560 1560 Balance 159 263 22 638 -302.4 Intake, IV 659 813 657 238 237.6 Intake, Tube 65 520 520 Feeding Intake, Tube 300 440 500 Irrigant Number 0 Bowel Movements Output, Urine 973 329 7250 560 1560 Physical Exam: General: WD/WN male. Intubated and sedated. Heart: RRR w/o murmur Lungs: clear bilaterally Extremities: no edema Assessment/Plan Assessment/Plan * Patient is hemodynamically stable in a sinus rhythm. No arrhythmias. Blood pressure is borderline and lungs and now clear. Hold Lasix. Replete potassium. * Continue IV heparin until patient passes swallow evaluation and can take a NOAC. * This patient will need an eventual cardiac catheterization but he is not stable for this procedure at this time. Continue NTG, aspirin and statin. Continue telemetry? Yes
--- NOTE | 2017-02-17 15:13 | RADIOLOGY REPORT ---
EXAMINATION: XR MODIFIED BARIUM SWALLOW CLINICAL INFORMATION: Status post extubation yesterday. Presented with dysphagia. Cough with liquids. COMPARISON: None. TECHNIQUE: Modified barium swallow study with speech therapist. FINDINGS: Evidence of penetration is noted without aspiration. Retention of food material is noted within the vallecula with early spillage into the piriform sinuses. Full procedural detail will be dictated by the speech therapist. FLUOROSCOPY TIME: 4 minutes, 10 seconds. NUMBER OF IMAGES: 12 IMPRESSION: Abnormal modified barium swallow study with evidence of penetration. Full procedural detail will be dictated by the speech pathologist.
--- NOTE | 2017-02-17 15:41 | NUR ---
PT TAKEN TO XRAY FOR MBS STUDY. PT DID NOT PASS EVALUATION. SPEECH THERAPIST TO REPEAT BED OR MBS STUDY TOMORROW.
[2017-02-17 16:00] VITALS: BP 108/60
--- NOTE | 2017-02-17 16:00 | NUR ---
ASSUMED CARE OF PATIENT. PATIENT AWAKE ORIENTED TO SELF BUT NOT TO PLACE OR TIME. PATIENT FOCUSED ON NEED FOR ORAL FLUIDS GETS AGITATED WHEN TOLD THAT HE IS NPO DUE TO SWALLOW ISSUES. PATIENT RESTLESS AND ENCOURAGED TO VOID IN URINAL. VOIDED 200CC ANIL URINE. LUNGS DIMINISHED AT BASES, REMAINS ON 2LNC OF OXYGEN. BELLY SOFT NON TENDER, DRESSING TO SUTURE LINE LLE. L GROIN DRESSING INTACT, LARM DRESSINGS FOR SKIN TEARS INTACT. NO OTHER SKIN NOTIONS. NO BLEEDING AT OLD TLC SITE R NECK. PATIENT NEEDS REORIENTING TO PLACE FREQUENTLY.
[2017-02-17 22:50] LABS: PTT 73 SEC (25-37)
[2017-02-18] VITALS: BP 110/60
--- NOTE | 2017-02-18 04:40 | Event Note ---
Event Note Event Note: Notified overnight that pt has one anerobic blodo culture bottle positive for GPC. Pt already on ceftaz and vanco. Will wait for other bottles and further culture results prior to altering his current medication regimen.
[2017-02-18 05:28] LABS: ABSOLUTE BASOPHIL COUNT 0 /CUMM (0.0-0.2); ABSOLUTE EOSINOPHIL COUNT 0 /CUMM (0.0-0.7); ABSOLUTE GRANULOCYTE CT 13.5 /CUMM (1.4-6.5); ABSOLUTE MONOCYTE COUNT 0.6 /CUMM (0.10-0.60); BASOPHIL % 0.1 % (0.0-2.0); EOSINOPHIL % 0 % (0-5); HEMATOCRIT 25.1 % (42-52); MEAN CORPUSCULAR HGB 27.1 PG (27.0-31.0); MEAN CORPUSCULAR HGB CONC 32.1 G/DL (33.0-37.0); MEAN CORPUSCULAR VOLUME 84.6 FL (80.0-94.0); MEAN PLATELET VOLUME 9.8 FL (7.4-10.4); PLATELET COUNT 225 /CUMM (130-400); RBC DISTRIBUTION WIDTH 19.6 % (11.5-14.5); RED BLOOD CELL CT 2.97 /CUMM (4.70-6.10); WHITE BLOOD CELL COUNT 16.1 /CUMM (4.8-10.8)
--- NOTE | 2017-02-18 06:48 | PN- Resident CRCU ---
Subjective HPI/CRCU Issues: Patient seen and examined at bedside this AM. He was laying comfortably in bed in no acute distress, though he continues to be slightly altered. He denies chest pain, palpitations, shortness of breath, abdominal pain or difficulty urinating. Patient was downgraded to telemetry this AM. 24 Hour Events: Vital signs last 24 hours: T 96.9-98.0, HR 71-90, RR 18-24, BP 83-117/53-70, O2 92-96% on 2 L NC. Total intake last 24 hours: 2347 cc Total output last 24 hours: 880 cc Objective Vital Signs & I&O Last 8 Hrs of Vitals and I&O: T 96.9-98.0, HR 71-90, RR 18-24, BP 83-117/53-70, O2 92-96% on 2 L NC. Exam General Appearance: well developed/nourished, no apparent distress, alert, awake , comfortable Head: atraumatic, normal appearance Ears, Nose, Throat: normal pharynx, Slightly dry mucous membranes Neck: normal inspection, No JVD Respiratory: normal breath sounds, chest non-tender Cardiovascular: regular rate/rhythm Gastrointestinal: normal bowel sounds, soft, non-tender Extremities: normal capillary refill, normal range of motion, Left calf larger than right, nontender to palpation, bandage in place clean and dry Cranial Nerves: normal hearing Skin: normal color Back: normal inspection Weaning Parameters NIF: 40 Minute Volume: 13.5 Resp rate: 29 Vt: 436 Heart Rate: 99 Weaning Schedule Start Time: 0916 Minute Volume: 13.5 Resp Rate: 29 Vt: 436 Heart Rate: 99 End Time: 1103 Minute Volume: 11.4 Resp Rate: 22 Vt: 475 Heart Rate: 93 Nutrition Nutrition: NPO Current Medications: Current Medications Sig/Lillie Start time Last Medication Dose Route Stop Time Status Admin Acetaminophen 1,000 MG Q6P PRN 02/16 0745 AC 02/16 N/A 1 UNIT IV 0822 Acetaminophen 650 MG Q6P PRN 02/02 PO 0026 Acetaminophen 1,000 MG Q6P PRN 02/02 IV 0832 Albuterol Sulfate 3 ML EVERY 4 HRS/AWAKE 02/08 1200 AC 02/18 INH 0818 Albuterol Sulfate 2 PUF Q4-6 PRN PRN 02/03 0645 AC 02/04 INH 2320 Aspirin 81 MG DAILY 02/08 1609 AC 02/16 PO 0935 Budesonide/ 2 PUF BID 02/03 1000 AC 02/17 Formoterol Fumarate INH 2209 Ceftriaxone Sodium 1,000 MG DAILY 02/16 1032 DC 02/17 IV 1002 Dextrose/Sodium 1,000 ML Q20H 02/16 1345 AC 02/17 Chloride IV 0956 Folic Acid 1 MG DAILY 02/07 1000 AC 02/16 PO 0935 Furosemide 40 MG DAILY 02/17 1000 DC 02/17 IV 1040 Furosemide 40 MG BID 02/16 2200 DC 02/16 IV 2133 Gabapentin 300 MG Q8 02/03 0620 AC 02/16 PO 0616 Heparin Sodium 25,000 UNIT Q16H 02/11 1230 AC 02/18 (Porcine) IV 0523 Sodium Chloride 500 ML Ipratropium [place] 2.5 ML EVERY 4 HRS/AWAKE 02/17 1200 DC 02/17 INH 02/17 Methylprednisolone 10 MG ONCE ONE 02/17 1100 DC 02/17 IV 02/17 1101 1455 Multivitamins 1 TAB DAILY 02/07 1000 AC 02/16 PO 0936 Nitroglycerin 0.5 GM Q6 02/08 1800 DC 02/16 TOP 0619 Nystatin 1 NEO DAILY 02/14 1152 AC 02/17 TOP 1003 Pantoprazole Sodium 40 MG DAILY 02/09 1000 AC 02/17 IV 1003 Polyethylene Glycol 17 GM DAILY 02/12 1047 AC 02/16 PO 0935 Potassium Chloride 10 MEQ Q1H 02/18 0700 AC 02/18 IV 02/18 0901 0814 Potassium Chloride 10 MEQ Q1H 02/17 2315 DC 02/18 IV 02/18 0116 0236 Potassium Chloride 10 MEQ Q1H 02/17 1545 DC 02/17 IV 02/17 1746 1939 Potassium Chloride 10 MEQ Q1H 02/17 0700 DC 02/17 IV 02/17 0901 0956 Potassium Chloride 40 MEQ DAILY 02/09 1000 AC 02/16 PO 0937 Pravastatin Sodium 40 MG 1700 02/04 1700 AC 02/15 PO 1543 Prednisone 10 MG DAILY 02/18 1000 CAN PO Prednisone 5 MG ONCE ONE 02/18 1000 AC PO 02/18 1001 Prednisone 20 MG DAILY 02/16 1000 DC 02/16 PO 0935 Senna 187 MG AT BEDTIME PRN 02/12 1100 AC 02/12 PO 1125 Thiamine HCl 50 MG DAILY 02/07 1000 AC 02/16 PO 0935 Tiotropium [place] 1 PUF DAILY 02/05 1208 AC 02/08 INH 1045 Results Results: 02/16/17 BC x 1 bottle: alpha sterp 02/15/17 urine culture: 10,000 colonies Klebsiella Pneumonia Miscellaneous Findings: 02/17/17 Modified Barium Swallow: FINDINGS: Evidence of penetration is noted without aspiration. Retention of food material is noted within the vallecula with early spillage into the piriform sinuses. Full procedural detail will be dictated by the speech therapist. FLUOROSCOPY TIME: 4 minutes, 10 seconds. NUMBER OF IMAGES: 12 IMPRESSION: Abnormal modified barium swallow study with evidence of penetration. Full procedural detail will be dictated by the speech pathologist. Impression/Plan Impression/Problem List Impression: Mr. Flores is a pleasant 61 year old male with PMH asthma, dyslipidemia, alcohol abuse, previous alcohol withdrawl seizure, and DVT x 2 (2014, August 2016) currently on coumadin who presented with chief complaint of several episodes of coffe-ground emesis and dark, tarry stools without overt blood/ clots. Associated symptoms at time of presentation included easy bleeding/ brusing of his extremities and dyspnea on exertion. Of note, patient was started on anticoagulation with his second episode of DVT in August of 2016. He was inadvertently placed on both xarelto by his PCP and Coumadin by Dr. De Santiago, vascular surgery, until 1-2 weeks later when this was noted and his PCP discontinued Xarelto. In the ED: Vital signs showed a Tmax of 994. HR 117, RR 22, BP 99/54 and O2 saturation of 99% on room air. Labs were significant for H&H 5.3/16.7, Plt 259, Na 131, K 4.1, HCO3 16, Cre 0.6 , Ca 8, Albumin 2.5, INR >10. EKG showed sinus tachycardia and no significant ST/T wave changes. Patient is currently admitted to the ICU and the following is the management: 1. Acute blood loss anemia secondary to GI bleed in the setting of supratherapeutic INR, RESOLVED * GI consult placed and appreciated, continue to follow recommendations * Discontinue coumadin, no further bleeding has been noted * Patient is s/p EGD which was grossly normal, no active bleeding; he will require colonoscopy likely as an outpatient * CBC now stable after 6 units prbcs total, 2 U given in the OR during thrombectomy and fasciotomy * INR now subtherapeutic after total of 4 units FFP, patient s/p IVC filter placement with IR * Patient continued on heparin drip for therapeutic PTT due to concerns for ST changes/LLE thrombosis * IV protonix daily while NPO * Strict Is/Os, continue net negative fluid balance 2. Recent fever on 02/16/17 with leukocytosis * WBC remains elevated to 16.1 though patient has been afebrile the last 24 hours * UA that was repeated noted to be unremarkable and patiet has no urinary symptoms, further questioning significance of 10,000 colonies of klebsiella in recent urine culture * ID consult appreciated * Repeat UC yesterday pending, continue to watch off antibiotics 3. Elevated troponins * Troponins peaked at 4.[address] elevations, currently EKG improving and troponins trending down * Heparin drip continued, switch to NOAC when can tolerate PO * Cardio consult placed and appreciated, continue to follow recomendations * NTG paste 1/2 inch, aspirin, statin * Echocardiogram shows normal EF at 60%, trace MR, mild-mod TR, moderate pulm HTN * Patient will likely require cardiac cath after discharge and once stable from a respiratory standpoint * Downgrade to telemetry today 4. Alcohol abuse * CIWA scoring discontinued as patient only scoring 0 * Alcohol cessation information and counseling provided * Continue MV, thiamine, folate 5. History of DVT with non-palpable pedal pulses * Bilateral lower extremity venous dopplers previously showed extensive left lower extremity near occlusive DVT, no RLE DVT * Hold coumadin; Patient now s/p IVC filter placement and will continue heparin, switch to NOAC once patiet passes swallow eval * Patient POD #9 from fasciotomy with LLE thrombectomy with vascular surgery and now LLE has improved warmth/color/dopplerable pulse * Left calf slightly more edematous than right, obtain left venous doppler today 6. Acute respiratory distress in setting of likely underlying COPD * Due to fluid overload in the setting of frequent transfusions vs ARDS * Respiratory status much improved, patient s/p extubation on 02/16/17 saturating well on O2 via NC * Discontinue lasix today * Titrate down FiO2 to maintain sat >92% * 5 mg solumedrol today and then STOP steroids * PT and OT eval appreciated, suggests patient will need STR after discharge 7. Chronic pain * PO tylenol for mild pain, IV tylenol for moderate pain 8. Dietary * Patient currently NPO as he failed bedside swallow evaluation * Repeat evaluation today FULL CODE DVTP: Heparin IV NPO Mild-moderate pain pathway Problem List: 1. Acute respiratory distress 2. GI bleed 3. DVT (deep venous thrombosis) 4. H/O fasciotomy 5. ETOH ABUSE Pain Ratin Tomorrow's Labs & Rationales: CBC (leukocytosis, acute blood loss anemia) BEP (hypokalemia) Plan DVT/Prophylaxis: mechanical (no pharm 2/2 acute blood loss)
[2017-02-18 08:00] VITALS: BP 110/66
--- NOTE | 2017-02-18 08:32 | NUR ---
PT DOWNGRADED TO TELEMETRY. REMAINS IN ICU A TELE HOLD
--- NOTE | 2017-02-18 09:29 | PN- CRCU ---
Subjective HPI/Critical Care Issues: The patient is awake and intermittently confused. His respiratory status remained stable postextubation. He denies any chest pain, shortness of breath, abdominal pain or any other associated issues. He is afebrile. His white blood cell count is 16,000 today. He remains NPO, noting he had evidence of significant aspiration on his modified barium swallow. Speech therapy will reevaluate him today. Objective Current Medications: Current Medications Sig/Lillie Start time Last Medication Dose Route Stop Time Status Admin Acetaminophen 1,000 MG Q6P PRN 02/16 0745 AC 02/16 N/A 1 UNIT IV 0822 Acetaminophen 650 MG Q6P PRN 02/02 2000 AC 02/16 PO 0026 Acetaminophen 1,000 MG Q6P PRN 02/02 2000 AC 02/13 IV 0832 Albuterol Sulfate 3 ML EVERY 4 HRS/AWAKE 02/07 1200 AC 02/18 INH 0818 Albuterol Sulfate 2 PUF Q4-6 PRN PRN 02/03 0645 AC 02/04 INH 2320 Aspirin 81 MG DAILY 02/08 1609 AC 02/16 PO 0935 Budesonide/ 2 PUF BID 02/03 1000 AC 02/17 Formoterol Fumarate INH 2209 Ceftriaxone Sodium 1,000 MG DAILY 02/16 1032 DC 02/17 IV 1002 Dextrose/Sodium 1,000 ML Q20H 02/16 1345 AC 02/17 Chloride IV 0956 Folic Acid 1 MG DAILY 02/07 1000 AC 02/16 PO 0935 Furosemide 40 MG DAILY 02/17 1000 DC 02/17 IV 1040 Gabapentin 300 MG Q8 02/03 0620 AC 02/16 PO 0616 Heparin Sodium 25,000 UNIT Q16H 02/11 1230 AC 02/18 (Porcine) IV 0523 Sodium Chloride 500 ML Ipratropium [place] 2.5 ML EVERY 4 HRS/AWAKE 02/17 1200 DC 02/17 INH 02/17 Methylprednisolone 10 MG ONCE ONE 02/17 1100 DC 02/17 IV 02/17 1101 1455 Multivitamins 1 TAB DAILY 02/07 1000 AC 02/16 PO 0936 Nitroglycerin 0.5 GM Q6 02/08 1800 DC 02/16 TOP 0619 Nystatin 1 NEO DAILY 02/14 1152 AC 02/17 TOP 1003 Pantoprazole Sodium 40 MG DAILY 02/09 1000 AC 02/17 IV 1003 Polyethylene Glycol 17 GM DAILY 02/12 1047 AC 02/16 PO 0935 Potassium Chloride 10 MEQ Q1H 02/18 0700 DC 02/18 IV 02/18 0901 0814 Potassium Chloride 10 MEQ Q1H 02/17 2315 DC 02/18 IV 02/18 0116 0236 Potassium Chloride 10 MEQ Q1H 02/17 1545 DC 02/17 IV 02/17 1746 1939 Potassium Chloride 40 MEQ DAILY 02/09 1000 AC 02/16 PO 0937 Pravastatin Sodium 40 MG 1700 02/04 1700 AC 02/15 PO 1543 Prednisone 10 MG DAILY 02/18 1000 CAN PO Prednisone 5 MG ONCE ONE 02/18 1000 AC PO 02/18 1001 Prednisone 20 MG DAILY 02/16 1000 DC 02/16 PO 0935 Senna 187 MG AT BEDTIME PRN 02/12 1100 AC 02/12 PO 1125 Thiamine HCl 50 MG DAILY 02/07 1000 AC 02/16 PO 0935 Tiotropium [place] 1 PUF DAILY 02/05 1208 AC 02/08 INH 1045 Vital Signs & I&O Last 24 Hrs of Vitals and I&O: Vital Signs Date Time Temp Pulse Resp B/P B/P Pulse O2 O2 Flow FiO2 Mean Ox Delivery Rate 02/18 0821 93 Nasal 2.0L Cannula 02/18 0800 93 Nasal 2.0L Cannula 02/18 0800 98.0 72 25 110/66 93 Nasal 2.0L Cannula 02/18 0400 92 Nasal 2.0L Cannula 02/18 0000 97.3 75 20 110/60 95 Nasal 2.0L Cannula 02/18 0000 95 Nasal 2.0L Cannula 02/17 2000 95 Nasal 2.0L Cannula 02/17 1710 87 Room Air 02/17 1600 95 Nasal 2.0L Cannula 02/17 1600 97.5 88 20 108/60 95 Nasal 2.0L Cannula 02/17 1200 95 Nasal 2.0L Cannula Intake & Output 02/18 1600 02/18 0800 02/18 0000 Intake Total 800 890 Output Total 100 300 Balance 700 590 Intake, IV 800 890 Intake, Oral 0 Number 1 Bowel Movements Output, Urine 100 300 Exam General Appearance: Intubated, comfortable Head: atraumatic, normal appearance Neck: supple Respiratory: Improved wheezing and crackles Cardiovascular: regular rate/rhythm Abdomen: normal bowel sounds, soft, non-tender Extremities: No significant edema Skin: intact, normal color, warm/dry Results Last 24 Hrs of Lab Results: Laboratory Tests 02/18/17 0500: Anion Gap 7, Estimated GFR > 60, Glucose 100 H, Calcium 8.3 L, Phosphorus 3.3, Magnesium 2.4 H, Total Bilirubin 1.0, AST 30, ALT 56, Albumin 2.6 L, CBC w Diff NO MAN DIFF REQ, RBC 2.97 L, MCV 84.6, MCH 27.1, RDW 19.6 H, MPV 9.8, Gran % 84.0 H, Lymphocytes % 12.2 L, Monocytes % 3.7, Eosinophils % 0, Basophils % 0.1, Absolute Granulocytes 13.5 H, Absolute Lymphocytes 2.0, Absolute Monocytes 0.6, Absolute Eosinophils 0, Absolute Basophils 0, PUBS MCHC 32.1 L 02/17/17 2210: APTT 73 H 02/17/17 1440: 02/17/17 1045: APTT 80 H 02/17/17 1000: Potassium Cancelled Impression/Plan Impression/Plan Impression/Plan: 1. Left lower extremity ischemia, status post left groin cutdown with left leg angiogram and embolectomy with fasciotomy. 2. Acute hypoxemic respiratory failure, improved, s/p extubation. 3. COPD. 4. Electrolyte abnormalities. 5. Acute KS. 6. Recurrent lower extremity DVTs, status post IVC filter. 7. Patient initially admitted with a GI bleed, no evidence of active bleeding at present. 8. Ongoing dysphasia postextubation. 9. Probable ICU delirium. Recommendations: * Stop Lasix and monitor I&Os. * NPO. * Follow up speech therapy recommendations. * Continue heparin drip for therapeutic PTT. * Continue TRC for nebulizer treatments. * Stop prednisone. * Monitor off antibiotics per ID. Appreciate input. * Continue MVI/thiamine/folate. * Physical therapy consult/increase activity/out of bed to chair. * Continue all current support. * Downgrade to telemetry.
--- NOTE | 2017-02-18 09:46 | PN- Cardiology ---
Subjective Subjective: Patient seen and examined. He is seen lying flat resting comfortably maintained on supplemental oxygen via nasal cannula. He appears to be in no acute distress. He reports feeling well and has no new subjective complaints. He states that he is hungry and would like to eat. Otherwise he denies any fever, chills, chest pain, palpitations, shortness of rbeath, nausea, vomiting, diarrhea, numbness, tingling. Review of Systems Constitutional: Reports: see HPI. Objective Vital Signs and I&Os Vital Signs Date Time Temp Pulse Resp B/P B/P Pulse O2 O2 Flow FiO2 Mean Ox Delivery Rate 02/18 0821 93 Nasal 2.0L Cannula 02/18 08 93 Nasal 2.0L Cannula 02/18 0800 98.0 72 25 110/66 93 Nasal 2.0L Cannula 02/18 0400 92 Nasal 2.0L Cannula 02/18 0000 97.3 75 20 110/60 95 Nasal 2.0L Cannula 02/18 0000 95 Nasal 2.0L Cannula 02/17 2000 95 Nasal 2.0L Cannula 02/17 1710 87 Room Air 02/17 1600 95 Nasal 2.0L Cannula 02/17 1600 97.5 88 20 108/60 95 Nasal 2.0L Cannula 02/17 1200 95 Nasal 2.0L Cannula Intake & Output 02/18 1600 02/18 0800 02/18 0000 02/17 1600 02/17 0800 02/17 0000 Intake Total 800 890 798 659 813 Output Total 100 300 80 500 550 Balance 700 590 718 159 263 Intake, IV 800 890 798 659 813 Intake, Oral 0 0 Number 1 1 Bowel Movements Output, Urine 100 300 80 500 550 Physical Exam: General - well developed, well nourished middle aged man in no acute distress HEENT- NCAT, PERRL, EOMI, anicteric sclera, nasal cannula in place CVS- S1, S2 w/o m/g/r; RRR Resp- CTA bilaterally GI- Soft, non-tender, non-distended, bowel sounds intact Neuro- Awake and alert, CN II-XII grossly intact Ext- normal pulses, no cyanosis/clubbing/edema, left lower extremity wrapped in sterile surgical gauze without any obvious drainage Current Medications: Current Medications Sig/Lillie Start time Last Medication Dose Route Stop Time Status Admin Acetaminophen 1,000 MG Q6P PRN 02/16 0745 AC 02/16 N/A 1 UNIT IV 0822 Acetaminophen 650 MG Q6P PRN 02/03 2000 AC 02/16 PO 0026 Acetaminophen 1,000 MG Q6P PRN 02/03 2000 AC 02/13 IV 0832 Albuterol Sulfate 3 ML EVERY 4 HRS/AWAKE 02/07 1200 AC 02/18 INH 0818 Albuterol Sulfate 2 PUF Q4-6 PRN PRN 02/03 0645 AC 02/04 INH 2320 Aspirin 81 MG DAILY 02/08 1609 AC 02/16 PO 0935 Budesonide/ 2 PUF BID 02/03 1000 AC 02/18 Formoterol Fumarate INH 0921 Ceftriaxone Sodium 1,000 MG DAILY 02/16 1032 DC 02/17 IV 1002 Dextrose/Sodium 1,000 ML Q20H 02/16 1345 AC 02/18 Chloride IV 0915 Folic Acid 1 MG DAILY 02/07 1000 AC 02/16 PO 0935 Furosemide 40 MG DAILY 02/17 1000 DC 02/17 IV 1040 Gabapentin 300 MG Q8 02/03 0620 AC 02/16 PO 0616 Heparin Sodium 25,000 UNIT Q16H 02/11 1230 AC 02/18 (Porcine) IV 0523 Sodium Chloride 500 ML Ipratropium [place] 2.5 ML EVERY 4 HRS/AWAKE 02/17 1200 DC 02/17 INH 02/17 Methylprednisolone 5 MG ONCE ONE 02/18 0945 UNVr IV 02/18 0946 Methylprednisolone 10 MG ONCE ONE 02/17 1100 DC 02/17 IV 02/17 1101 1455 Multivitamins 1 TAB DAILY 02/07 1000 AC 02/16 PO 0936 Nitroglycerin 0.5 GM Q6 02/08 1800 DC 02/16 TOP 0619 Nystatin 1 NEO DAILY 02/14 1152 AC 02/18 TOP 0919 Pantoprazole Sodium 40 MG DAILY 02/09 1000 AC 02/18 IV 0922 Polyethylene Glycol 17 GM DAILY 02/12 1047 AC 02/16 PO 0935 Potassium Chloride 10 MEQ Q1H 02/18 0700 DC 02/18 IV 02/18 0901 0916 Potassium Chloride 10 MEQ Q1H 02/17 2315 DC 02/18 IV 02/18 0116 0236 Potassium Chloride 10 MEQ Q1H 02/17 1545 DC 02/17 IV 02/17 1746 1939 Potassium Chloride 40 MEQ DAILY 02/09 1000 AC 02/16 PO 0937 Pravastatin Sodium 40 MG 1700 02/04 1700 AC 02/15 PO 1543 Prednisone 10 MG DAILY 02/18 1000 CAN PO Prednisone 5 MG ONCE ONE 02/18 1000 AC PO 02/18 1001 Prednisone 20 MG DAILY 02/16 1000 DC 02/16 PO 0935 Senna 187 MG AT BEDTIME PRN 02/12 1100 AC 02/12 PO 1125 Thiamine HCl 50 MG DAILY 02/07 1000 AC 02/16 PO 0935 Tiotropium [place] 1 PUF DAILY 02/05 1208 AC 02/08 INH 1045 Assessment/Plan Assessment/Plan * Patient continues to remain hemodynamically stable while on intravenous heparin. monitoring and evaluation advisor in the past 24 hours demonstrates normal sinus rhythm with no events. Patient is still requiring supplemental oxygen via nasal cannula , he is saturating 93% on 2.0L. His lungs are clear, patient does not appear to be in any respiratory distress. Patient was downgraded to telemetry from ICU, continue telemetry. Patient does not appear fluid overloaded, continue to hold lasix, replete potassium. Patient underwent a modified barium swallow yesterday for which he unfortunately failed, recommendations were made to keep patient NPO. Patient had a repeat swallow evaluation for which he passed. He was be switched to an oral anticoagulant such as eliquis. * Patient has persistent leukocytosis, most likely due to steroids. He remains afebrile without any obvious source of infection. * Patient will most likley require cardiac catheterization once he is stable, continue NTG, ASA, and statin. Continue telemetry? Yes
[2017-02-18 10:14] LABS: PTT 77 SEC (25-37)
--- NOTE | 2017-02-18 11:00 | NUR ---
BEDSIDE SWALLOW EVALUATION OBTAINED. MBS RECOMMENDED AND ORDERED.
--- NOTE | 2017-02-18 11:02 | PN- Infect Dx ---
Subjective Subjective: Afebrile on steroids. He offers no complaints. Objective Last 24 Hrs of Vital Signs/I&O Vital Signs Date Time Temp Pulse Resp B/P B/P Pulse O2 O2 Flow FiO2 Mean Ox Delivery Rate 02/18 0821 93 Nasal 2.0L Cannula 02/18 0800 93 Nasal 2.0L Cannula 02/18 0800 98.0 72 25 110/66 93 Nasal 2.0L Cannula 02/18 0400 92 Nasal 2.0L Cannula 02/18 0000 97.3 75 20 110/60 95 Nasal 2.0L Cannula 02/18 0000 95 Nasal 2.0L Cannula 02/17 2000 95 Nasal 2.0L Cannula 02/17 1710 87 Room Air 02/17 1600 95 Nasal 2.0L Cannula 02/17 1600 97.5 88 20 108/60 95 Nasal 2.0L Cannula 02/17 1200 95 Nasal 2.0L Cannula Intake & Output 02/18 1600 02/18 0800 02/18 0000 Intake Total 800 890 Output Total 100 300 Balance 700 590 Intake, IV 800 890 Intake, Oral 0 Number 1 Bowel Movements Output, Urine 100 300 Physical Exam Other Physical Findings: He appears comfortable, though confused and disoriented, in no acute distress Lungs scattered rhonchi bilaterally Heart regular rhythm with no murmur Back no CVA tenderness Extremities left leg mild swelling; dressing intact Results Last 24 Hours of Lab Results: Laboratory Tests 02/18 02/18 02/17 02/17 0912 0500 2210 1440 Chemistry Sodium (137 - 145 mmol/L) 144 Potassium (3.5 - 5.1 mmol/L) 3.4 L 3.6 3.3 L Chloride (98 - 107 mmol/L) 115 H Carbon Dioxide (22 - 30 mmol/L) 23 Anion Gap (5 - 16) 7 BUN (9 - 20 mg/dL) 23 H Creatinine (0.7 - 1.2 mg/dL) 0.4 L Estimated GFR (>60 ml/min) > 60 Glucose (65 - 99 mg/dL) 100 H Calcium (8.4 - 10.2 mg/dL) 8.3 L Phosphorus (2.5 - 4.5 mg/dL) 3.3 Magnesium (1.6 - 2.3 mg/dL) 2.4 H Total Bilirubin (0.2 - 1.3 mg/dL) 1.0 AST (17 - 59 U/L) 30 ALT (21 - 72 U/L) 56 Albumin (3.5 - 5.0 g/dL) 2.6 L Coagulation APTT (25 - 37 SEC) 77 H 73 H Hematology CBC w Diff NO MAN DIFF REQ WBC (4.8 - 10.8 /CUMM) 16.1 H RBC (4.70 - 6.10 /CUMM) 2.97 L Hgb (14.0 - 18.0 G/DL) 8.1 L Hct (42 - 52 %) 25.1 L MCV (80.0 - 94.0 FL) 84.6 MCH (27.0 - 31.0 PG) 27.1 RDW (11.5 - 14.5 %) 19.6 H Plt Count (130 - 400 /CUMM) 225 MPV (7.4 - 10.4 FL) 9.8 Gran % (42.2 - 75.2 %) 84.0 H Lymphocytes % (20.5 - 51.1 %) 12.2 L Monocytes % (1.7 - 9.3 %) 3.7 Eosinophils % (0 - 5 %) 0 Basophils % (0.0 - 2.0 %) 0.1 Absolute Granulocytes (1.4 - 6.5 /CUMM) 13.5 H Absolute Lymphocytes (1.2 - 3.4 /CUMM) 2.0 Absolute Monocytes (0.10 - 0.60 /CUMM) 0.6 Absolute Eosinophils (0.0 - 0.7 /CUMM) 0 Absolute Basophils (0.0 - 0.2 /CUMM) 0 PUBS MCHC (33.0 - 37.0 G/DL) 32.1 L Last 24 Hours of Rahat Results: Urine culture February 15 approximately 10,000 colonies of Klebsiella pneumonia resistant to Ceftriaxone Urine culture February 17 negative Recent Imaging Studies: Modified barium swallow February 17 abnormal with evidence of penetration Assessment/Plan Impression: Stable with temperatures now remaining normal and white blood cell count slightly decreased on steroids and off antibiotics, with his repeat urine culture so far negative. As he appears stable can continue to follow his leukocytosis, which is most likely still secondary to the steroids. Unfortunately he failed his swallow evaluation yesterday but is to be reevaluated today. Suggestion: 1. Follow-up final urine culture 2. Await repeat swallow evaluation 3. Continue to taper steroids per Pulmonary 4. Continue to follow off antibiotics pending above
--- NOTE | 2017-02-18 12:02 | NUR ---
L LEG CIRCUMFRENCE > RIGHT. US TECH AT BEDSIDE FOR DOPPLER STUDY.
--- NOTE | 2017-02-18 13:35 | ULTRASOUND REPORT ---
EXAMINATION: US TRIPLEX LOWER EXTREMITY, LEFT CLINICAL INFORMATION: Presumptive DVT left lower extremity COMPARISON: None TECHNIQUE: Color-flow triplex imaging with spectral analysis and compression Doppler were performed on the lower extremity. Exam was technically difficult as it was performed portably with bandages in the groin area as well as the proximal calf. In addition, the patient could not tolerate compression of the common femoral vein and marked subcutaneous edema was present. FINDINGS: The study is limited as described above The visualized common femoral vein, superficial femoral vein, profunda femoral vein, popliteal vein and midcalf peroneal and posterior tibial venous segments show no convincing evidence of deep venous thrombosis. 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 There is no Carrasquillo's cyst. IMPRESSION: No evidence of deep venous thrombosis involving the lower extremity. Other findings as described above
--- NOTE | 2017-02-18 14:08 | RADIOLOGY REPORT ---
EXAMINATION: XR MODIFIED BARIUM SWALLOW CLINICAL INFORMATION: Dysphagia status post extubation. COMPARISON: None. TECHNIQUE: A modified barium swallow was performed with speech pathologist in attendance. Pur?e, honey thick, nectar thick, thin, bread, and cracker consistencies were given to the patient and the swallowing mechanism was observed fluoroscopically with several spot films taken. FLUOROSCOPY TIME: 3 minutes 11 seconds. FINDINGS: With all consistencies, the oral phase of swallowing is normal with no laryngeal or nasopharyngeal aspiration seen. There is moderate pooling of contrast in the valleculae with all consistencies. With honey, nectar and thin liquid consistency, transient silent penetration of contrast is seen. No gardenia aspiration is seen. IMPRESSION: Penetration of contrast noted with honey, nectar and thin liquid consistency without elicitation of a cough reflex. Moderate pooling of contrast in the valleculae with all consistencies. Speech pathologist assessment issued separately.
--- NOTE | 2017-02-18 14:34 | Discharge Summary ---
See Addendum Visit Information Visit Dates Admission Date: 02/02/17 Discharge Date: 02/20/2017 Hospital Course Course Attending Physician: GEORGE BOCANEGRA MD [facility]: Mr. Flores is a pleasant 61 year old male with PMH asthma, dyslipidemia, alcohol abuse, previous alcohol withdrawl seizure, and DVT x 2 (2014, August 2016) currently on coumadin who presented with chief complaint of several episodes of coffe-ground emesis and dark, tarry stools without overt blood/ clots. Associated symptoms at time of presentation included easy bleeding/ brusing of his extremities and dyspnea on exertion. Of note, patient was started on anticoagulation with his second episode of DVT in August of 2016. He was inadvertently placed on both xarelto by his PCP and Coumadin by Dr. De Santiago, vascular surgery, until 1-2 weeks later when this was noted and his PCP discontinued Xarelto. In the ED: Vital signs showed a Tmax of 994. HR 117, RR 22, BP 99/54 and O2 saturation of 99% on room air. Labs were significant for H&H 5.3/16.7, Plt 259, Na 131, K 4.1, HCO3 16, Cre 0.6 , Ca 8, Albumin 2.5, INR >10. EKG showed sinus tachycardia and no significant ST/T wave changes. Patient was treated in the ICU for the following issues: 1. Acute blood loss anemia secondary to GI bleed in the setting of supratherapeutic INR: Patient was admitted to ICU and all anticoagulants were stopped. No further bleeding was noted. Patient received 4 units of FFP and 6 units of PRBCs a total of. An EGD was done on 02/04/2017 which was normal. Colonoscopy could not be done as the patient was not adequately prepped. INR drifted down slowly and it was followed every day. IV Protonix was continued daily. IVC filter was placed by IR on 2016. Patient had left lower extremity thrombosis and underwent thrombectomy and was started on heparin drip for therapeutic PTT. He also suffered a and STEMI and was treated with IV heparin. Patient was started on Eliquis prior to discharge and was instructed to follow-up with vascular surgeon and GI within a week of discharge. Plan is to do an outpatient colonoscopy after discharge. 2. Acute respiratory distress in setting of likely underlying COPD: Patient developed flash pulmonary edema in the setting of fluid resuscitation and blood transfusions in the ED. CTA did not reveal any signs of PE but interstitial pulmonary edema, small pleural effusions. Initial consideration was also TRALI and ARDS. He was aggressively diuresed with IV Lasix and followed by cardiology in the ICU. Patient continued to remain dyspneic despite high flow oxygen and BiPAP. He also had a cough productive of yellow sputum. He was continued on TR for nebulizer treatments. Continued on Symbicort and IV steroids which were liters tapered off. Cultures were obtained and patient was treated with IV antibiotics. Due to his severe respiratory distress he required intubation and stayed intubated for about approximately 8 days. Patient slowly improved with IV antibiotics and IV Lasix and finally was extubated. He passed swallow eval after multiple failed attempts and was started on pured and nectar thick diet. Plan is to advance diet as tolerated. 2. History of DVT with non-palpable pedal pulses: Patient developed left leg swelling while in the ICU. Bilateral lower extremity venous dopplers previously showed extensive left lower extremity near occlusive DVT, no RLE DVT. Vascular surgery was consulted and patient was started on IV heparin. He underwent Fasciotomy with left lower thrombectomy with improvement of leg color and return of palpable pulses. He was switched to Eliquis prior to discharge for anti- coagulation. 3.Fever with leukocytosis: The patient had fever with elevated white count and fever. Likely possibility was aspiration pneumonia. He also grew 10,000 colonies of Klebsiella in the urine culture. He was on IV Unasyn with no improvement and finally switched to IV vancomycin and ceftazidime for a possible healthcare associated pneumonia. His blood cultures were positive for alpha strep and respiratory cultures for yeast. Patient improved on IV antibiotics which were finally stopped and he was watched off antibiotics. Throughout his ICU stay he was followed by the infectious disease doctor. 4. Elevated troponins: Patient had some elevation of troponins with ST elevations suggesting a acute ischemic event. Cardiology was consulted and since patient was hemodynamically unstable, he was treated conservatively with NTG paste 1/2 inch, aspirin, statin and IV heparin. Troponins trended down and patient was closely monitored by cardiology. Echocardiogram showed normal EF at 60%, trace MR, mild-mod TR, moderate pulm HTN. Plan is to do a cardiac catheterization as an outpatient to look for coronary artery disease. 5. Alcohol abuse: Patient was initially placed on a CIWA protocol but scoring low and therefore it was discontinued subsequently. Alcohol cessation information and counseling provided. Patient was continued on MV, thiamine, folate 6. Chronic pain: PO tylenol for mild pain, IV tylenol for moderate pain 7. Diet: Patient was initially nothing by mouth, later it was advanced as per swallow results. FULL CODE DVTP: Heparin IV and later switched to Eliquis Mild-moderate pain pathway Allergies: Coded Allergies: codeine (Mild, SHAKES 12/01/16) Disposition Summary Disposition Principal Diagnosis: ACUTE GI BLEED Additional Diagnosis: Acute respiratory failure Discharge Disposition: SNF Discharge Instructions General Discharge Information Code Status: Full Code Patient's Diet: puree nectar Patient's Activity: As toletared Follow-Up Instructions/Appts: F/U WITH PCP WITHIN 1 WEEK F/U WITH VASCULAR DOCTOR IN 1 WEEK Medications at Discharge Discharge Medications: Stop taking the following medications: Warfarin Sodium (Jantoven) 7.5 MG TABLET ORAL DAILY Continue taking these medications: Gabapentin (Neurontin) 300 MG CAPSULE 1 Capsule ORAL THREE TIMES DAILY Comments: PER PT Albuterol Sulfate (Ventolin Hfa) 90 MCG HFA.AER.AD 2 Puff Inhale through mouth EVERY 4-6 HOURS NEEDED as needed for SHORTNESS OF BREATH Qty = 1 Mometasone/Formoterol (Dulera 200 Mcg/5 Mcg Inhaler) 200 MCG-5 MCG/ACTUATION HFA.AER.AD 2 Puff Inhale through mouth TWICE DAILY Comments: PER PT Pravastatin Sodium (Pravachol) 40 MG TABLET 1 Tablet ORAL DAILY Comments: PER PT Ranitidine HCl (Ranitidine HCl) 300 MG TABLET 1 Tablet ORAL Every night Qty = 30 Start taking the following new medications: Apixaban (Eliquis) 5 MG TABLET 1 Tablet ORAL TWICE DAILY Qty = 90 No Refills Instructions: From 02/18/17-02/25/17 take 10 mg twice a day 02/26/17 onwards take 5 mg twice a day Aspirin (Aspirin*) 81 MG TAB.CHEW 81 Milligram ORAL DAILY Days = 30 No Refills Omeprazole (Omeprazole) 20 MG CAPSULE.DR 40 Milligram ORAL DAILY BEFORE BREAKFAST Days = 60 No Refills Copies To: TOYIN SHAHID APRN
[2017-02-18] MEDS ORDERED: ELIQUIS5 M1 PO ×2 (14:42→18:39)
[2017-02-18] MEDS ORDERED: ASPIRIN81 M4 PO (14:42)
--- NOTE | 2017-02-18 14:47 | Patient Discharge Instructions ---
Discharge Instructions General Discharge Information You were seen/treated for: Supratherapeutic INR Acute respiratory distress DVT'S STEMI Special Instructions: 1. PLEASE FOLLOW UP WITH FRIT COATER WITH 1 WEEK OF DISCHARGE. 2. PLEASE FOLLOW UP WITH CLAM DREDGER WITHIN 1 WEEK OF DISCHARGE. 3. PLEASE FOLLOW UP WITH VASCULAR SURGEON WITHIN 2 WEEKS OF DISCHARGE. 4. PLEASE FOLLOW UP WITH GI DOCTOR WITHIN 1 WEEK OF DISCHARGE. 5. In regards to your eliquis, take 10 mg eliquis twice a day until 02/25/17. Starting 02/26/17 take 5 mg twice a day and follow up with vascular surgery/ cardiology for further management. Diet Continue normal diet: No Recommended Diet: PUREED AND THICK LIQUIDS Activity Full Activity/No Limits: Yes ( TOLERATED) Acute Coronary Syndrome Inclusion Criteria At DC or during hospital stay patient has or had the following: ACS DIAGNOSIS Yes Discharge Core Measures Meds if any: Prescribed or Continued at Discharge COLE/ARB if EF <40% No Aspirin Yes Beta-Juan No Statin Yes Meds if any: NOT Prescribed or Continued at Discharge No COLE/ARB d/t Medical Contraindication (LOW BLOOD PRESSURE) No Beta-Juan d/t Hypotension Congestive Heart Failure Inclusion Criteria At DC or during hospital stay patient has or had the following: CHF DIAGNOSIS No Discharge Core Measures Meds if any: Prescribed or Continued at Discharge Meds if any: NOT Prescribed or Continued at Discharge Cerebrovascular accident Inclusion Criteria At DC or during hospital stay patient has or had the following: CVA/TIA Diagnosis No Discharge Core Measures Meds if any: Prescribed or Continued at Discharge Meds if any: NOT Prescribed or Continued at Discharge Venous thromboembolism Inclusion Criteria VTE Diagnosis Yes VTE Type Deep Venous Thrombosis (DOPPLERS) VTE Confirmed by (Test) EXT BILATERAL VENOUS DOPP Discharge Core Measures - Per Current guidelines, there needs to be overlap - treatment for the first 5 days of Warfarin therapy. - If discharged on Warfarin prior to 5 days of - overlap therapy, the patient will need to be - assessed for post discharge needs including - *Post discharge parental anticoagulation - *Warfarin and/or parental anticoagulation education - *Follow up date to check INR post discharge At least 5 days overlap therapy as Inpatient No Why was Parental Med stopped IV HEPARIN Meds if any: Prescribed or Continued at Discharge Warfarin No Overlap Therapy No Note: Overlap Therapy is Warfarin and Anticoagulant Meds if any: NOT Prescribed or Continued at Discharge
[2017-02-18 16:00] VITALS: BP 106/60
--- NOTE | 2017-02-18 16:43 | NUR ---
PT PASSED MBS AND STARTED ON HHD, NECTAR /PUREE DIET WITH SPECEFIC FEEDING DIRECTIONS
[2017-02-18 18:32] VITALS: BP 89/58
[2017-02-18 18:40] VITALS: BP 100/54
--- NOTE | 2017-02-18 19:28 | NUR ---
NURSING NOTE; PT TRANSFERRED FROM ICU AT 1830. VSS. NSR 80'S. ON 2L NC. A+OX3. ABLE TO STATE [facility] AND THE YEAR OF 2016. TOLERATING SIPS OF NECTAR THICK LIQUIDS VIA TEASPOON. STRICT SWALLOWING INSTRUCTIONS. HEPARIN GTT INFUSING AT 29.7 ML/HR. PLAN IS TO START PO ELIQUIS TONIGHT AND STOP HEPARIN 1 HOUR AFTER DOSE. DRESSINGS TO LEFT LEG C/D/I. PT WITH NO C/O PAIN.
[2017-02-19 00:01] VITALS: BP 90/58
[2017-02-19 07:54] LABS: ABSOLUTE BASOPHIL COUNT 0 /CUMM (0.0-0.2); ABSOLUTE EOSINOPHIL COUNT 0.1 /CUMM (0.0-0.7); ABSOLUTE GRANULOCYTE CT 10.4 /CUMM (1.4-6.5); ABSOLUTE LYMPH COUNT 2.1 /CUMM (1.2-3.4); ABSOLUTE MONOCYTE COUNT 0.6 /CUMM (0.10-0.60); BASOPHIL % 0.3 % (0.0-2.0); EOSINOPHIL % 0.5 % (0-5); GRANULOCYTE % 78.9 % (42.2-75.2); HEMATOCRIT 24.8 % (42-52); MEAN CORPUSCULAR HGB 27.6 PG (27.0-31.0); MEAN CORPUSCULAR HGB CONC 32.5 G/DL (33.0-37.0); MEAN CORPUSCULAR VOLUME 84.9 FL (80.0-94.0); MEAN PLATELET VOLUME 9.8 FL (7.4-10.4); PLATELET COUNT 215 /CUMM (130-400); RBC DISTRIBUTION WIDTH 20.4 % (11.5-14.5); RED BLOOD CELL CT 2.92 /CUMM (4.70-6.10); WHITE BLOOD CELL COUNT 13.1 /CUMM (4.8-10.8)
[2017-02-19 08:48] VITALS: BP 100/52
--- NOTE | 2017-02-19 10:16 | PN- Housestaff ---
See Addendum Subjective Follow-up For: Dysphagia and sore throat s/p intubation Tele-Events Since Last Visit: NSR Subjective: Patient seen and examined at bedside this AM. He was laying comfortably in bed in no acute distress, though he continues to be slightly altered. He denies chest pain, palpitations, shortness of breath, abdominal pain or difficulty urinating. Review of Systems Constitutional: Reports: see HPI. Objective Last 24 Hrs of Vital Signs/I&O Vital Signs Date Time Temp Pulse Resp B/P B/P Pulse O2 O2 Flow FiO2 Mean Ox Delivery Rate 02/19 1208 95 Room Air 02/19 1118 Nasal 1.5L Cannula 02/19 0931 93 Nasal 1.5L Cannula 02/19 0848 97.9 74 18 100/52 92 Room Air 02/19 0800 Nasal 1.5L Cannula 02/19 0001 97.2 76 18 90/58 96 Room Air 02/19 0000 Nasal 1.5L Cannula 02/18 1840 84 100/54 02/18 1832 97.8 86 18 89/58 95 Room Air 02/18 1645 97 Nasal 2.0L Cannula 02/18 1600 95 Nasal 2.0L Cannula 02/18 1600 97.7 84 22 106/60 97 Nasal 2.0L Cannula Intake & Output 02/19 1600 02/19 0800 02/19 0000 Intake Total 60 238.8 Output Total 650 400 Balance -590 -161.2 Intake, IV 10 118.8 Intake, Oral 50 120 Output, Urine 650 400 Physical Exam General Appearance: Alert, Oriented X3, Cooperative, No Acute Distress Other Physical Findings: Head: atraumatic, normal appearance Ears, Nose, Throat: normal pharynx, Slightly dry mucous membranes Neck: normal inspection, No JVD Respiratory: normal breath sounds, chest non-tender Cardiovascular: regular rate/rhythm Gastrointestinal: normal bowel sounds, soft, non-tender Extremities: normal capillary refill, normal range of motion, Left calf larger than right, nontender to palpation, bandage in place clean and dry Cranial Nerves: normal hearing Skin: normal color Back: normal inspection Current Medications: Current Medications Sig/Lillie Start time Last Medication Dose Route Stop Time Status Admin Acetaminophen 1,000 MG Q6P PRN 02/16 0745 AC 02/16 N/A 1 UNIT IV 0822 Acetaminophen 650 MG Q6P PRN 02/03 2000 AC 02/16 PO 0026 Acetaminophen 1,000 MG Q6P PRN 02/03 2000 AC 02/13 IV 0832 Albuterol Sulfate 3 ML EVERY 4 HRS/AWAKE 02/07 1200 AC 02/19 INH 1151 Albuterol Sulfate 2 PUF Q4-6 PRN PRN 02/03 0645 AC 02/04 INH 2320 Apixaban 5 MG BID 02/18 220 DC PO Apixaban 10 MG BID 02/18 2200 AC 02/19 PO 02/25 1001 1016 Aspirin 81 MG DAILY 02/08 1609 AC 02/19 PO 1016 Budesonide/ 2 PUF BID 02/03 1000 AC 02/19 Formoterol Fumarate INH 1016 Dextrose/Sodium 1,000 ML Q20H 02/16 1345 DC 02/18 Chloride IV 0915 Folic Acid 1 MG DAILY 02/07 1000 AC 02/19 PO 1016 Gabapentin 300 MG Q8 02/03 0620 AC 02/19 PO 0554 Heparin Sodium 25,000 UNIT Q16H 02/11 1230 DC 02/18 (Porcine) IV 02/18 2300 0523 Sodium Chloride 500 ML Multivitamins 1 TAB DAILY 02/07 1000 AC 02/19 PO 1016 Pantoprazole Sodium 40 MG DAILY 02/[address] 02/18 IV 0922 Polyethylene Glycol 17 GM DAILY 02/12 1047 AC 02/16 PO 0935 Potassium Chloride 40 MEQ DAILY 02/09 1000 AC 02/19 PO 1017 Pravastatin Sodium 40 MG 1700 02/04 1700 AC 02/18 PO 1711 Senna 187 MG AT BEDTIME PRN 02/12 1100 AC 02/12 PO 1125 Thiamine HCl 50 MG DAILY 02/07 1000 AC 02/19 PO 1016 Tiotropium [place] 1 PUF DAILY 02/05 1208 AC 02/19 INH 1118 Last 24 Hrs of Lab/Rahat Results Last 24 Hrs of Labs/Mics: Laboratory Tests 02/19/17 0640: Anion Gap 7, Estimated GFR > 60, BUN/Creatinine Ratio 38.0 H, CBC w Diff NO MAN DIFF REQ, RBC 2.92 L, MCV 84.9, MCH 27.6, RDW 20.4 H, MPV 9.8, Gran % 78.9 H, Lymphocytes % 15.6 L, Monocytes % 4.7, Eosinophils % 0.5, Basophils % 0.3, Absolute Granulocytes 10.4 H, Absolute Lymphocytes 2.1, Absolute Monocytes 0.6, Absolute Eosinophils 0.1, Absolute Basophils 0, PUBS MCHC 32.5 L 02/18/17 1400: Assessment/Plan Assessment: Mr. Flores is a pleasant 61 year old male with PMH asthma, dyslipidemia, alcohol abuse, previous alcohol withdrawl seizure, and DVT x 2 (2014, August 2016) currently on coumadin who presented with chief complaint of several episodes of coffe-ground emesis and dark, tarry stools without overt blood/ clots. Associated symptoms at time of presentation included easy bleeding/ brusing of his extremities and dyspnea on exertion. Of note, patient was started on anticoagulation with his second episode of DVT in August of 2016. He was inadvertently placed on both xarelto by his PCP and Coumadin by Dr. De Santiago, vascular surgery, until 1-2 weeks later when this was noted and his PCP discontinued Xarelto. 1. Acute blood loss anemia Secondary to GI bleed in the setting of supratherapeutic INR, RESOLVED Patient is s/p EGD which was grossly normal, no active bleeding; he will require colonoscopy likely as an outpatient. Patient remains HDS with H/H stable. INR now subtherapeutic after total of 4 units FFP, patient s/p IVC filter placement with IR. * GI on board, appreciate recs * Continue Eliquis 10mg PO BID for 7 days (started on 02/18 night) * Start prilosec 40mg PO QD (previously on IV Protonix) * Check CBC daily, trend H/H * Transfuse for Hgb < 7 2. Leukocytosis Remains afebrile since 02/16/17. WBC trending down. * ID on board, appreciate recs * Follow repeat Ucx - NGTD * Continue to watch off antibiotics 3. NSTEMI Troponins peaked at 4.[address] elevations and then trended down on 02/09 and trended down. Echocardiogram shows normal EF at 60%, trace MR, mild-mod TR, moderate pulm HTN * Continue cardiac monitoring per cardio rec for now * Cont Eliquis as discussed above (Heparin transitioned to Eliquis on 02/18) * Cardio on-board, appreciate recs * Cont NTG paste 1/2 inch, aspirin, statin * Patient will likely require cardiac cath after discharge and once stable from a respiratory standpoint 4. Alcohol abuse * CIWA scoring discontinued as patient only scoring 0 * Alcohol cessation information and counseling provided * Continue MV, thiamine, folate 5. History of DVT with non-palpable pedal pulses Bilateral lower extremity venous dopplers previously showed extensive left lower extremity near occlusive DVT, no RLE DVT. Patient s/p IVC filter placement and fasciotomy with LLE thrombectomy by vascular surgery. LLE improving in warmth/ color/dopplerable pulse * Full anticoagulation as discussed above * Left calf slightly more edematous. Left venous doppler - negative 6. Acute respiratory distress in setting of likely underlying COPD Due to fluid overload in the setting of frequent transfusions vs ARDS. Respiratory status much improved, patient s/p extubation on 02/16/17. * Cont off Lasix and steroids * Titrate down FiO2 to maintain sat >92% * PT and OT eval appreciated, suggests patient will need STR after discharge 7. Chronic pain * PO tylenol for mild pain, IV tylenol for moderate pain 8. Dietary * Patient now tolerating PO. * Speech therapy following, apprciate recs - Heart healthy diet - Mild pain pathway - DVT ppx with Eliquis - Full code. Problem List: 1. Asthma 2. ETOH ABUSE 3. Acute respiratory distress 4. GI bleed 5. DVT (deep venous thrombosis) 6. Upper respiratory infection 7. H/O fasciotomy Pain Ratin Pain Location: 0 Pain Goal: Remain pain free Pain Plan: Mild pathway Tomorrow's Labs & Rationales: CBC - monitor H/H BEP - electyrolytes
--- NOTE | 2017-02-19 10:33 | PN- Infect Dx ---
Subjective Subjective: Afebrile without complaints Objective Last 24 Hrs of Vital Signs/I&O Vital Signs Date Time Temp Pulse Resp B/P B/P Pulse O2 O2 Flow FiO2 Mean Ox Delivery Rate 02/19 0931 93 Nasal 1.5L Cannula 02/19 0848 97.9 74 18 100/52 92 Room Air 02/19 0800 Nasal 1.5L Cannula 02/19 0001 97.2 76 18 90/58 96 Room Air 02/19 0000 Nasal 1.5L Cannula 02/18 1840 84 100/54 02/18 1832 97.8 86 18 89/58 95 Room Air 02/18 1645 97 Nasal 2.0L Cannula 02/18 1600 95 Nasal 2.0L Cannula 02/18 1600 97.7 84 22 106/60 97 Nasal 2.0L Cannula Intake & Output 02/19 1600 02/19 0800 02/19 0000 Intake Total 60 238.8 Output Total 650 400 Balance -590 -161.2 Intake, IV 10 118.8 Intake, Oral 50 120 Output, Urine 650 400 Physical Exam Other Physical Findings: He appears comfortable in no acute distress Lungs bibasilar crackles Heart regular rhythm with no murmur Abdomen is soft, nontender with positive bowel sounds Extremities no cyanosis, clubbing or edema Results Last 24 Hours of Lab Results: Laboratory Tests 02/19 02/18 0640 1400 Chemistry Sodium (137 - 145 mmol/L) 144 Potassium (3.5 - 5.1 mmol/L) 3.7 4.1 Chloride (98 - 107 mmol/L) 115 H Carbon Dioxide (22 - 30 mmol/L) 21 L Anion Gap (5 - 16) 7 BUN (9 - 20 mg/dL) 19 Creatinine (0.7 - 1.2 mg/dL) 0.5 L Estimated GFR (>60 ml/min) > 60 BUN/Creatinine Ratio (7 - 25 %) 38.0 H Hematology CBC w Diff NO MAN DIFF REQ WBC (4.8 - 10.8 /CUMM) 13.1 H RBC (4.70 - 6.10 /CUMM) 2.92 L Hgb (14.0 - 18.0 G/DL) 8.1 L Hct (42 - 52 %) 24.8 L MCV (80.0 - 94.0 FL) 84.9 MCH (27.0 - 31.0 PG) 27.6 RDW (11.5 - 14.5 %) 20.4 H Plt Count (130 - 400 /CUMM) 215 MPV (7.4 - 10.4 FL) 9.8 Gran % (42.2 - 75.2 %) 78.9 H Lymphocytes % (20.5 - 51.1 %) 15.6 L Monocytes % (1.7 - 9.3 %) 4.7 Eosinophils % (0 - 5 %) 0.5 Basophils % (0.0 - 2.0 %) 0.3 Absolute Granulocytes (1.4 - 6.5 /CUMM) 10.4 H Absolute Lymphocytes (1.2 - 3.4 /CUMM) 2.1 Absolute Monocytes (0.10 - 0.60 /CUMM) 0.6 Absolute Eosinophils (0.0 - 0.7 /CUMM) 0.1 Absolute Basophils (0.0 - 0.2 /CUMM) 0 PUBS MCHC (33.0 - 37.0 G/DL) 32.5 L Last 24 Hours of Rahat Results: Urine culture February 17 negative Recent Imaging Studies: Doppler of the left lower extremity February 18 negative Assessment/Plan Impression: Stable with temperatures remaining normal and white blood cell count continuing to decrease on tapering steroids and off antibiotics, with his repeat urine culture negative. Suggestion: 1. Continue to follow off antibiotics
--- NOTE | 2017-02-19 10:45 | PN- Cardiology ---
Subjective Subjective: Patient seen and examined. He is seen sitting upright in his chair at bedside maintained on supplemental oxygen via nasal cannula. He appears to be in no acute distress. He reports eating a "potroast dinner" with no complaints. This morning he is seen having difficulty swallowing small pills with applesauce and is seen to be chewing them. He is oriented to person/place/time, but remains mildly confused. He denies any new subjective complaints. Additionally he denies any fever, chills, chest pain, palpitations, shortness of breath, cough, nausea, vomiting, diarrhea, further episodes of bleeding. Review of Systems Constitutional: Reports: see HPI. Objective Vital Signs and I&Os Vital Signs Date Time Temp Pulse Resp B/P B/P Pulse O2 O2 Flow FiO2 Mean Ox Delivery Rate 02/19 0931 93 Nasal 1.5L Cannula 02/19 0848 97.9 74 18 100/52 92 Room Air 02/19 0800 Nasal 1.5L Cannula 02/19 0001 97.2 76 18 90/58 96 Room Air 02/19 0000 Nasal 1.5L Cannula 02/18 1840 84 100/54 02/18 1832 97.8 86 18 89/58 95 Room Air 02/18 1645 97 Nasal 2.0L Cannula 02/18 1600 95 Nasal 2.0L Cannula 02/18 1600 97.7 84 22 106/60 97 Nasal 2.0L Cannula Intake & Output 02/19 1600 02/19 0800 02/19 0000 02/18 1600 02/18 0800 02/18 0000 Intake Total 60 238.8 997 800 890 Output Total 650 400 280 100 300 Balance -590 -161.2 717 700 590 Intake, IV 10 118.8 937 800 890 Intake, Oral 50 120 60 0 Number 1 Bowel Movements Output, Urine 650 400 280 100 300 Physical Exam: General - well developed, well nourished middle aged man in no acute distress HEENT- NCAT, PERRL, EOMI, anicteric sclera, nasal cannula in place CVS- S1, S2 w/o m/g/r; RRR Resp- CTA bilaterally GI- Soft, non-tender, non-distended, bowel sounds intact Neuro- Awake and alert, CN II-XII grossly intact Ext- normal pulses, no cyanosis/clubbing/edema, left lower extremity wrapped in sterile surgical gauze without any obvious drainage Current Medications: Current Medications Sig/Lillie Start time Last Medication Dose Route Stop Time Status Admin Acetaminophen 1,000 MG Q6P PRN 02/16 0745 AC 02/16 N/A 1 UNIT IV 0822 Acetaminophen 650 MG Q6P PRN 02/02 2000 AC 02/16 PO 0026 Acetaminophen 1,000 MG Q6P PRN 02/03 2000 AC 02/13 IV 0832 Albuterol Sulfate 3 ML EVERY 4 HRS/AWAKE 02/07 1200 AC 02/19 INH 0839 Albuterol Sulfate 2 PUF Q4-6 PRN PRN 02/03 0645 AC 02/04 INH 2320 Apixaban 5 MG BID 02/18 2200 DC PO Apixaban 10 MG BID 02/18 2200 AC 02/19 PO 02/25 1001 1016 Aspirin 81 MG DAILY 02/08 1609 AC 02/19 PO 1016 Budesonide/ 2 PUF BID 02/03 1000 AC 02/19 Formoterol Fumarate INH 1016 Dextrose/Sodium 1,000 ML Q20H 02/16 1345 DC 02/18 Chloride IV 0915 Folic Acid 1 MG DAILY 02/07 1000 AC 02/19 PO 1016 Gabapentin 300 MG Q8 02/03 0620 AC 02/19 PO 0554 Heparin Sodium 25,000 UNIT Q16H 02/11 1230 DC 02/18 (Porcine) IV 02/18 2300 0523 Sodium Chloride 500 ML Multivitamins 1 TAB DAILY 02/07 1000 AC 02/19 PO 1016 Nystatin 1 NEO DAILY 02/14 1152 DC 02/18 TOP 0919 Pantoprazole Sodium 40 MG DAILY 02/09 1000 DC 02/18 IV 0922 Polyethylene Glycol 17 GM DAILY 02/12 1047 AC 02/16 PO 0935 Potassium Chloride 40 MEQ DAILY 02/09 1000 AC 02/19 PO 1017 Pravastatin Sodium 40 MG 1700 02/04 1700 AC 02/18 PO 1711 Senna 187 MG AT BEDTIME PRN 02/12 1100 AC 02/12 PO 1125 Thiamine HCl 50 MG DAILY 02/07 1000 AC 02/19 PO 1016 Tiotropium [place] 1 PUF DAILY 02/05 1208 AC 02/08 INH 1045 Results Last 48 Hrs of Labs/Mics: Laboratory Tests 02/19/17 0640: Anion Gap 7, Estimated GFR > 60, BUN/Creatinine Ratio 38.0 H, CBC w Diff NO MAN DIFF REQ, RBC 2.92 L, MCV 84.9, MCH 27.6, RDW 20.4 H, MPV 9.8, Gran % 78.9 H, Lymphocytes % 15.6 L, Monocytes % 4.7, Eosinophils % 0.5, Basophils % 0.3, Absolute Granulocytes 10.4 H, Absolute Lymphocytes 2.1, Absolute Monocytes 0.6, Absolute Eosinophils 0.1, Absolute Basophils 0, PUBS MCHC 32.5 L 02/18/17 1400: 02/18/17 0912: APTT 77 H 02/18/17 0500: Anion Gap 7, Estimated GFR > 60, Glucose 100 H, Calcium 8.3 L, Phosphorus 3.3, Magnesium 2.4 H, Total Bilirubin 1.0, AST 30, ALT 56, Albumin 2.6 L, CBC w Diff NO MAN DIFF REQ, RBC 2.97 L, MCV 84.6, MCH 27.1, RDW 19.6 H, MPV 9.8, Gran % 84.0 H, Lymphocytes % 12.2 L, Monocytes % 3.7, Eosinophils % 0, Basophils % 0.1, Absolute Granulocytes 13.5 H, Absolute Lymphocytes 2.0, Absolute Monocytes 0.6, Absolute Eosinophils 0, Absolute Basophils 0, PUBS MCHC 32.1 L 02/17/17 2210: APTT 73 H 02/17/17 1440: 02/17/17 1045: APTT 80 H Microbiology 02/17 1450 URINE ROUT: Urine Culture - COMP Assessment/Plan Assessment/Plan * Patient passed his swallow evaluation yesterday and was converted to oral Eliquis for ongoing anticoagulation. He remains hemodynamically stable with unremarkable telemetry events in the past 24 hours. He is still requiring supplemental oxygen, currently saturating 93% on 1.5L via NC. Physical examination is unremarkable, no evidence of fluid overload. Continue Eliquis, telemetry no longer needed. * Leukocytosis is improving, however this is still most likely secondary to steroids as he remains afebrile without any other obvious source of infection. * Patient will most likley require cardiac catheterization once he is stable, continue NTG, ASA, and statin. Continue telemetry? No
[2017-02-19 15:30] VITALS: BP 98/58
[2017-02-19] MEDS ORDERED: OMEPRAZOLE20 M2 PO (15:30)
[2017-02-20 00:59] VITALS: BP 78/42
[2017-02-20 03:00] VITALS: BP 92/54
[2017-02-20 08:26] VITALS: BP 100/50
--- NOTE | 2017-02-20 10:13 | PN- Housestaff ---
Subjective Follow-up For: UGIB Elevated trops Acute resp failure Subjective: Patient is seen and examined while seated on the recliner. He is eager for discharge. No acute overnight event reported by nursing staff. He denies any increased weakness, chest pain, palpitation, focal neurological deficit, fever, chills, nausea, vomiting, abdominal pain or dysuria. Patient schedule to go to [facility] however he started being reluctant about the discharge disposition and was demanding to go home. Review of Systems Constitutional: Reports: no symptoms. Objective Last 24 Hrs of Vital Signs/I&O Vital Signs Date Time Temp Pulse Resp B/P B/P Pulse O2 O2 Flow FiO2 Mean Ox Delivery Rate 02/20 1737 98.2 90 17 146/73 02/20 1659 95 Room Air Room Air 02/20 1612 98.2 90 17 146/73 95 Room Air 02/20 0826 98.5 76 18 100/50 93 Room Air 02/20 0758 93 Room Air Room Air 02/20 0300 92/54 02/20 0059 98.1 78 16 78/42 93 Room Air 02/20 0000 Room Air Intake & Output 02/20 1600 02/20 0800 02/20 0000 Intake Total 420 1100 480 Output Total 600 300 350 Balance -180 800 130 Intake, IV 1000 Intake, Oral 420 100 480 Number 1 Bowel Movements Output, Urine 600 300 350 Physical Exam General Appearance: Alert, Oriented X3 Other Physical Findings: Head: atraumatic, normal appearance Ears, Nose, Throat: normal pharynx, Slightly dry mucous membranes Neck: normal inspection, No JVD Respiratory: normal breath sounds, chest non-tender Cardiovascular: regular rate/rhythm Gastrointestinal: normal bowel sounds, soft, non-tender Extremities: normal capillary refill, normal range of motion, Left calf larger than right, nontender to palpation, bandage in place clean and dry Cranial Nerves: normal hearing Skin: normal color Back: normal inspection Current Medications: Current Medications Sig/Lillie Start time Last Medication Dose Route Stop Time Status Admin Acetaminophen 1,000 MG Q6P PRN 02/16 0745 AC 02/16 N/A 1 UNIT IV 0822 Acetaminophen 650 MG Q6P PRN 02/02 PO 0026 Acetaminophen 1,000 MG Q6P PRN 02/02 IV 0832 Albuterol Sulfate 3 ML EVERY 4 HRS/AWAKE 02/07 1200 AC 02/20 INH 1659 Albuterol Sulfate 2 PUF Q4-6 PRN PRN 02/03 0645 AC 02/04 INH 2320 Apixaban 10 MG BID 02/18 2200 AC 02/20 PO 02/25 1001 0918 Aspirin 81 MG DAILY 02/08 1609 AC 02/20 PO 0918 Budesonide/ 2 PUF BID 02/03 1000 AC 02/20 Formoterol Fumarate INH 0914 Folic Acid 1 MG DAILY 02/07 1000 AC 02/20 PO 0918 Gabapentin 300 MG Q8 02/03 0620 AC 02/20 PO 1519 Multivitamins 1 TAB DAILY 02/07 1000 AC 02/20 PO 0918 Omeprazole 40 MG DAILY AC 02/19 1334 AC 02/20 PO 0626 Polyethylene Glycol 17 GM DAILY 02/12 1047 AC 02/20 PO 0919 Potassium Chloride 40 MEQ DAILY 02/09 1000 AC 02/20 PO 0919 Pravastatin Sodium 40 MG 1700 02/04 1700 AC 02/20 PO 1620 Senna 187 MG AT BEDTIME PRN 02/12 1100 AC 02/12 PO 1125 Sodium Chloride 1,000 ML BOLUS ONE 02/20 0045 DC 02/20 IV 02/20 0244 0054 Thiamine HCl 50 MG DAILY 02/07 1000 AC 02/20 PO 0918 Tiotropium [place] 1 PUF DAILY 02/05 1208 AC 02/20 INH 0914 Assessment/Plan Assessment: Mr. Flores is a pleasant 61 year old male with PMH asthma, dyslipidemia, alcohol abuse, previous alcohol withdrawl seizure, and DVT x 2 (2014, August 2016) currently on coumadin who presented with chief complaint of several episodes of coffe-ground emesis and dark, tarry stools without overt blood/ clots. Associated symptoms at time of presentation included easy bleeding/ brusing of his extremities and dyspnea on exertion. Of note, patient was started on anticoagulation with his second episode of DVT in August of 2016. He was inadvertently placed on both xarelto by his PCP and Coumadin by Dr. De Santiago, vascular surgery, until 1-2 weeks later when this was noted and his PCP discontinued Xarelto. Impression and Plan 1. Acute blood loss anemia Secondary to GI bleed in the setting of supratherapeutic INR, RESOLVED Patient is s/p EGD which was grossly normal, no active bleeding; he will require colonoscopy likely as an outpatient. Patient remains HDS with H/H stable. INR now subtherapeutic after total of 4 units FFP, patient s/p IVC filter placement with IR. 2. Leukocytosis Remains afebrile since 02/16/17. WBC trended down. * 3. NSTEMI Troponins peaked at 4.[address] elevations and then trended down on 02/09 and trended down. Echocardiogram shows normal EF at 60%, trace MR, mild-mod TR, moderate pulm HTN * Continue cardiac monitoring per cardio rec for now * Cont Eliquis as discussed above (Heparin transitioned to Eliquis on 02/18) * Cardio on-board, appreciate recs * Cont NTG paste 1/2 inch, aspirin, statin * Patient will likely require cardiac cath after discharge and once stable from a respiratory standpoint 4. Alcohol abuse * CIWA scoring discontinued as patient only scoring 0 * Alcohol cessation information and counseling provided * Continue MV, thiamine, folate 5. History of DVT with non-palpable pedal pulses Bilateral lower extremity venous dopplers previously showed extensive left lower extremity near occlusive DVT, no RLE DVT. Patient s/p IVC filter placement and fasciotomy with LLE thrombectomy by vascular surgery. LLE improving in warmth/ color/dopplerable pulse * Full anticoagulation as discussed above * Left calf slightly more edematous. Left venous doppler - negative 6. Acute respiratory distress in setting of likely underlying COPD Due to fluid overload in the setting of frequent transfusions vs ARDS. Respiratory status much improved, patient s/p extubation on 02/16/17. * Cont off Lasix and steroids * Titrate down FiO2 to maintain sat >92% * PT and OT eval appreciated, suggests patient will need STR after discharge 7. Chronic pain * PO tylenol for mild pain, IV tylenol for moderate pain 8. Dietary * Patient now tolerating PO. * Speech therapy following, apprciate recs - Heart healthy diet - Mild pain pathway - DVT ppx with Eliquis - Full code. Problem List: 1. GI bleed 2. Acute respiratory distress 3. Asthma attack Pain Ratin Pain Location: none Pain Goal: Remain pain free Pain Plan: per pain pathway Tomorrow's Labs & Rationales: none-discharge
[2017-02-20 16:12] VITALS: BP 146/73
--- NOTE | 2017-02-20 17:34 | PN- Att Addend ---
Attending MD Review Statement Attending Statement Attending MD Statement: examined this patient, discuss w/resident/PA/DEPLOYMENT ENGINEER, agreed w/resident/PA/DEPLOYMENT ENGINEER, reviewed EMR data (avail), discussed w/nursing, discussed w/ case mgmt Attending Assessment/Plan: Vital Signs Date Time Temp Pulse Resp B/P B/P Pulse O2 O2 Flow FiO2 Mean Ox Delivery Rate 02/20 1612 98.2 90 17 146/73 95 Room Air 02/20 0826 98.5 76 18 100/50 93 Room Air 02/20 0758 93 Room Air Room Air 02/20 0300 92/54 02/20 0059 98.1 78 16 78/42 93 Room Air 02/20 0000 Room Air Patient seen and examined at bedside. Discussed with patient the care plan. Plan is for the patient to be discharged to subacute rehabilitation if that becomes available. 61-year-old male was transferred out of ICU after being treated for GI bleed, alcohol withdrawal, non-ST elevation IN and arterial embolism for which patient underwent thrombectomy and fasciotomy. Patient currently is on Eliquis. We discussed this with the hematology given his arterial embolism and they want the patient to follow up as an outpatient in hematology clinic for further workup. Patient patient wanted to sign out AGAINST MEDICAL ADVICE and refusing to go to subacute rehabilitation. Discussed with patient that it is really important for him to go to subacute rehabilitation as he is unable to do most of his ADLs by himself and is even unable to get up out of the chair without any assistance.
[2017-02-20 17:37] VITALS: BP 146/73
== END 2017-02-20 18:05 | DRG 802 ==
LOC: ERH 17:37 → ERHI 18:43 → CRI 18:43 → ENRESERV 20:00 → CRI 21:13 → 1NO 02-18 18:28
PROVIDERS: Internal Medicine; Internal Medicine Pulmonary Disease; Ophthalmology; Physician Assistant; Student in an Organized Health Care Education/Training Program; ADMIT Student in an Organized Health Care Education/Training Program
PROC: 30233K1 Transfusion of Nonautologous Frozen Plasma into Peripheral Vein, Percutaneous Approach (ICD-10-PCS; 2017-02-02)
PROC: 30233N1 Transfusion of Nonautologous Red Blood Cells into Peripheral Vein, Percutaneous Approach (ICD-10-PCS; 2017-02-02)
PROC: 5A09457 Assistance with Respiratory Ventilation, 24-96 Consecutive Hours, Continuous Positive Airway Pressure (ICD-10-PCS; 2017-02-02)
PROC: 0DJ08ZZ Inspection of Upper Intestinal Tract, Via Natural or Artificial Opening Endoscopic (ICD-10-PCS; 2017-02-04)
PROC: 06H03DZ Insertion of Intraluminal Device into Inferior Vena Cava, Percutaneous Approach (ICD-10-PCS; 2017-02-05)
PROC: 04CL0ZZ Extirpation of Matter from Left Femoral Artery, Open Approach (ICD-10-PCS; principal; 2017-02-09)
PROC: 0KNT0ZZ Release Left Lower Leg Muscle, Open Approach (ICD-10-PCS; 2017-02-09)
PROC: 04CN0ZZ Extirpation of Matter from Left Popliteal Artery, Open Approach (ICD-10-PCS; 2017-02-09)
DX: D62 Acute posthemorrhagic anemia (principal); J96.00 Acute respiratory failure, unspecified whether with hypoxia or hypercapnia; K92.2 Gastrointestinal hemorrhage, unspecified; D68.32 Hemorrhagic disorder due to extrinsic circulating anticoagulants; G62.9 Polyneuropathy, unspecified; I27.2 Other secondary pulmonary hypertension; F10.239 Alcohol dependence with withdrawal, unspecified; I07.1 Rheumatic tricuspid insufficiency; Y90.1 Blood alcohol level of 20-39 mg/100 ml; Z86.718 Personal history of other venous thrombosis and embolism; Z79.01 Long term (current) use of anticoagulants; E78.5 Hyperlipidemia, unspecified; J45.909 Unspecified asthma, uncomplicated; J44.9 Chronic obstructive pulmonary disease, unspecified; F17.200 Nicotine dependence, unspecified, uncomplicated; T45.515A Adverse effect of anticoagulants, initial encounter; Y92.009 Unspecified place in unspecified non-institutional (private) residence as the place of occurrence of the external cause
CPT/HCPCS: 04007; 1NSP; CCU; 36415; 73552; 74230; 76775; 80307; 81003; 82436; 86920; 87040; 87070; 87071; 87086; 87147; 88304; 93005; 93010; 93306; 93970; 94799; 96374; 97110-GO; 97116-GO; 97161-GP; 97165-GO; 97530-GO; C1725; C1769; C1880; G0480; J0131; J0690; J0696; J1644; J1940; J2060; J2405; J2920; J3010; J3490; J7040; J7042; J7060; J7512; P9016; P9017; Q9967

== ENCOUNTER 2017-10-26 14:45 | Inpatient (IN) | payer OTHER ==
[~2017-10-26] VITALS: Ht 167.6 cm; Wt 68.0 kg
[~2017-10-26 14:45] MED LIST changes: +ASPIRIN81 M4 PO; +CEPACOL SORE T1 EAC1 PO; +CLOPIDOGREL75 M1 PO; +DOCUSATE SODIU100 M3 PO; +ELIQUIS5 M1 PO; +FOLIC ACID1 M1 PO; +JANTOVEN7.5 M1 PO; +KEFLEX500 M1 PO; +MIRALAX119 GM PO; +MULTIVITAMINS1 EAC9 PO; +OMEPRAZOLE20 M2 PO; +ONE DAILY MULT1 EAC2 PO; +OXYCODONE HCL5 M1 PO; +SULFAMETHOXAZO1 EAC1 PO; +VITAMIN B-1100 MG PO
--- NOTE | 2017-10-26 15:35 | ED UPPER/LOWER EXTREMITY COMPL ---
History of Present Illness General Chief Complaint: General Adult Stated Complaint: L LEG INJURY Source: patient Exam Limitations: no limitations Vital Signs & Intake/Output Vital Signs & Intake/Output Vital Signs Date Time Temp Pulse Resp B/P B/P Pulse O2 O2 Flow FiO2 Mean Ox Delivery Rate 10/26 2314 95 Nasal 2.0L Cannula 10/26 2300 99.2 94 18 84/60 95 Nasal 2.0L Cannula 10/26 2233 98.0 92 20 118/64 97 Room Air 10/26 1952 98.3 104 20 122/68 10/26 1952 98.3 104 20 12268 98 Room Air 10/26 1818 9506.0 99 18 92/62 10/26 1803 95.6 99 18 98 Room Air 10/26 1605 97 10/26 1520 97.5 134 20 105/67 ED Intake and Output 10/27 0000 10/26 1200 Intake Total 1220 Output Total Balance 1220 Intake, IV 1100 Intake, Oral 120 Patient 133 lb Weight Weight Bed scale Measurement Method Allergies Coded Allergies: codeine (Mild, SHAKES 07/09/17) Reconcile Medications Albuterol Sulfate (Ventolin Hfa) 90 MCG HFA.AER.AD 2 PUF INH Q4-6 PRN PRN SHORTNESS OF BREATH Apixaban (Eliquis) 5 MG TABLET 1 TAB PO BID blood clots Aspirin (Aspirin*) 81 MG TAB.CHEW 81 MG PO DAILY heart health Gabapentin (Neurontin) 300 MG CAPSULE 1 CAP PO TID NERVE PAIN (Reported) Mometasone/Formoterol (Dulera 200 Mcg/5 Mcg Inhaler) 200 MCG-5 MCG/ACTUATION HFA.AER.AD 2 PUF INH BID ASTHMA (Reported) Multiple Vitamin (Multivitamins) 1 EACH TABLET 1 TAB PO DAILY SUPPLEMENT ( Reported) Omeprazole 20 MG CAPSULE.DR 40 MG PO DAILY AC GI BLEED Pravastatin Sodium 20 MG TABLET 1 TAB PO DAILY HLD (Reported) Ranitidine HCl 300 MG TABLET 1 TAB PO QPM GI (Reported) Triage Note: 62 YEAR OLD MALE WHO HAD L ABOVE THE AMPUTATION IN WAS SENT TO ER BY DR GARZON FOR ADMISSION DUE TO STUMP DEHISSED , PT NOTED WITH BONE PROTRUDING THROUGH STUMP,PT STATES THAT THIS AM WHEN HE WENT TO GET OUT OF BED THIS AM HE HEARD A POP AND HAD INSTANT PAIN AND WHEN HE LOOKED DOWN HE NOTED HIS INCISION LINE WAS OPEN. PAIN 10/10 PT DIRECTLY TO ROOM Triage Nurses Notes Reviewed? yes HPI: Patient presents for evaluation of his left mid thigh amputation. Patient states that while getting out of bed this morning he felt a "pop" and "the bone was sticking out". He is experiencing severe pain in the left leg. He states that the "filter" came off. He states he has a wound VAC for the area. He sees Dr. Mack the wound. Past History Travel History Traveled to [place] past 21 day No Medical History Any Pertinent Medical History? 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 , Age 62. FATHER (HEART CONDITION). , Age 60+. Hx Contributory? No Review of Systems Review of Systems Constitutional: Reports: no symptoms. EENTM: Reports: no symptoms. Respiratory: Reports: no symptoms. Cardiovascular: Reports: no symptoms. Gastrointestinal/Abdominal: Reports: no symptoms. Genitourinary: Reports: no symptoms. Musculoskeletal: Reports: see HPI. Skin: Reports: no symptoms. Neurological/Psychological: Reports: no symptoms. Hematologic/Endocrine: Reports: no symptoms. Immunological: Reports: no symptoms. All Other Systems: Reviewed and Negative Physical Exam Physical Exam General Appearance: SEE BELOW Comments: Gen.: Well-nourished, well-developed, no acute respiratory distress. Head: Normocephalic, atraumatic. Eyes: Normal inspection bilaterally Ears: Normal inspection bilaterally Nose: Normal inspection Throat/mouth : Moist mucosa Neck: Supple, full range of motion, no goiter Heart: Regular rate and rhythm Lungs: Quiet respirations Back: Normal range of motion Extremities: Left thigh: Mid to distal thigh amputation with the femur stump exposed. The surrounding soft tissues are weepy with a mildly purulent discharge. There is no wound VAC or other apparatus in place. No dried blood or signs of trauma. Neurologic: Cranial nerves grossly intact, speech is clear Skin: warm and dry Psychiatric: Calm, cooperative, no apparent delusions or hallucinations Progress Differential Diagnosis: cellulitis, OSTEOMYELITIS Plan of Care: Orders Procedure Date/time Status Nothing by Mouth 10/27 B Active MAGNESIUM 10/27 06 Active CBC WITHOUT DIFFERENTIAL 10/27 06 Active BASIC ELECTROLYTES PLUS BUN&CR 10/27 06 Active Nursing Misc 10/27 UNK Active Skin/Pressure Ulcer Assess (Sk 10/26 2352 Active Vital Signs 10/26 2312 Active Teach/Educate 10/26 2312 Active Pain Treatment and Response 10/26 2312 Active Nutritional Intake, Monitor 10/26 2312 Active Isolation 10/26 2312 Active Intake & Output 10/26 2312 Active Patient Care Conference 10/26 2312 Active Activity/Ambulation 10/26 2312 Active BLOOD CULTURE 10/26 2158 Active EKG 10/26 2126 Active Pathway - chart 10/26 2104 Active House Staff 10/26 2104 Active Patient Data 10/26 2104 Active Code Status 10/26 2104 Active Misc Message 10/26 2012 Active ED Holding Orders 10/26 2012 Active Admit to inpatient 10/26 2012 Active Vital Signs 10/26 2013 Active Code Status 10/26 2012 Complete Add-on Test (ER Only) 10/26 1752 Active CIWA 10/26 1752 Active MAGNESIUM 10/26 1606 Complete ETHANOL 10/26 1606 Complete Intake & Output 10/26 1605 Active CBC WITHOUT DIFFERENTIAL 10/26 1603 Complete BASIC METABOLIC PANEL 10/26 1603 Complete VTE Mechanical Prophylaxis 10/26 UNK Active CIWA 10/26 UNK Complete SOCIAL WORK CONSULT 10/26 UNK Active PHYSICIAN CONSULT 10/26 UNK Active NUTRITIONAL CONSULT 10/26 UNK Active Current Medications Sig/Lillie Start time Last Medication Dose Stop Time Status Admin Famotidine 40 MG QPM 10/27 2200 AC (Pepcid) Pravastatin Sodium 20 MG 1700 10/27 1700 AC (Pravachol) Folic Acid 1 MG DAILY 10/27 1000 AC (Folic Acid) Multivitamins 1 TAB DAILY 10/27 1000 AC Therapeutic (Theragran-M Vitamins Tabs) Thiamine HCl 100 MG DAILY 10/27 1000 AC (Vitamin B1) Omeprazole 40 MG DAILY AC 10/27 0700 AC (Prilosec) Sodium Chloride 1,000 ML Q10H 10/27 0000 AC 10/26 (Normal Saline 0.9%) 10/27 Ampicillin Sodium/ 3,000 MG Q6 10/269 AC 10/26 Sulbactam Sodium 2352 (Unasyn) Sodium Chloride 100 ML (Normal Saline 0.9%) Gabapentin 300 MG TID 10/26 2199 AC 10/26 (Neurontin) 235 Lorazepam 0 Q1P PRN 10/26 2199 AC (Ativan) Acetaminophen 650 MG Q8P PRN 10/26 2114 AC (Tylenol) Laboratory Tests 10/26/17 1606: Anion Gap 9, Estimated GFR > 60, BUN/Creatinine Ratio 10.0, Glucose 89, Calcium 7.8 L, Magnesium 1.5 L, CBC w Diff NO MAN DIFF REQ, RBC 3.46 L, MCV 85.7, MCH 27.9, MCHC 32.5 L, RDW 36.3 H, MPV 7.9, Gran % 78.0 H, Lymphocytes % 12.8 L, Monocytes % 7.6, Eosinophils % 1.4, Basophils % 0.2, Absolute Granulocytes 8.0 H, Absolute Lymphocytes 1.3, Absolute Monocytes 0.8 H, Absolute Eosinophils 0.1 , Absolute Basophils 0, Serum Alcohol 17.0 Microbiology 10/26 2158 BLOOD: Blood Culture - COLB 10/26 2158 BLOOD: Blood Culture - COLB Diagnostic Imaging: Discussed w/RAD: Radiology Read. Radiology Impression: PATIENT: MCKAY BECKMAN PRESENT AGE: 62 PATIENT ACCOUNT NO: [id number] : 57 LOCATION: [facility] ORDERING PHYSICIAN: Ed Haji MD SERVICE DATE: 10/26/17 EXAM TYPE: RAD - XRY-FEMUR, LEFT 2 VIEWS EXAMINATION: XR FEMUR, LEFT CLINICAL INFORMATION: Osteomyelitis. There is left distal thigh amputation with drainage COMPARISON: MRI of the left femur June 2017. TECHNIQUE: AP and lateral views of the left femur were obtained. FINDINGS: There are postop changes related to above knee amputation. The remaining portion of the femur appears intact without definite bone destruction or erosion. The surrounding soft tissues are unremarkable. IMPRESSION: Postop changes related to above knee amputation. No x-ray signs signs of osteomyelitis. DICTATED BY: Neil Eduardo MD DATE/TIME DICTATED:1926 GERIATRIC ASSISTANT:BIJAN DATE/TIME TRANSCRIBED:10/26/171926 CONFIDENTIAL, DO NOT COPY WITHOUT APPROPRIATE AUTHORIZATION. <Electronically signed in Other Vendor System> SIGNED BY: Neil Eduardo MD 10/26/171934 Comments: 16:35 d/w dr mack who states he sent MCKAY the emergency department for evaluation and revision of his surgical stump. He states that the patient has issues with alcohol and suspects he may go into a detox. 10/26/2017 8:06:28 PM patient's case discussed with surgical PABebo Sanchez was treated with IV fluid bolus with normalization of blood pressure. Departure Departure Disposition: STILL A PATIENT Condition: Stable Clinical Impression Primary Impression: Amputated left leg Secondary Impressions: Alcohol use Anemia Qualifiers: Anemia type: unspecified type Qualified Code: D64.9 - Anemia, unspecified Hypotension Qualifiers: Hypotension type: unspecified hypotension type Qualified Code: I95.9 - Hypotension, unspecified Referrals: Zbigniew Cheng APRN (PCP/Family) Departure Forms: Customer Survey General Discharge Information Admission Note Spoke With: Francoise Barroso MD Documentation of Exam: Documentation of any treatments & extenuating circumstances including Concerns Regarding Discharge (functional status, medication knowledge or non-compliance, living conditions, etc.) that warrant an admission rather than observation: Patient presents with worsening of his left thigh amputation. Patient in fact was sent by his vascular surgeon for evaluation and admission for revision of his stump. The patient's femur is protruding from the end of the amputation and there also appears to be somewhat purulent drainage. This places the patient at risk of cellulitis, osteomyelitis, sepsis and mortality, although there appears to be no significant infection of the stump at this time. I feel this patient now requires hospitalization for IV antibiotics and close clinical monitoring of vital signs and his stump. The patient has a history of alcohol use and he should be monitored for signs and symptoms of acute alcohol withdrawal. Patient should be treated for these accordingly. In addition, patient's vascular surgeon should be consult in for stump revision. Patient will require a multiple day hospitalization. Critical Care Note Critical Care Note Critical Care Time: 30-74 min
[2017-10-26 16:46] LABS: ABSOLUTE BASOPHIL COUNT 0 /CUMM (0.0-0.2); ABSOLUTE EOSINOPHIL COUNT 0.1 /CUMM (0.0-0.7); ABSOLUTE LYMPH COUNT 1.3 /CUMM (1.2-3.4); ABSOLUTE MONOCYTE COUNT 0.8 /CUMM (0.10-0.60); BASOPHIL % 0.2 % (0.0-2.0); EOSINOPHIL % 1.4 % (0-5); HEMATOCRIT 29.6 % (42-52); MEAN CORPUSCULAR HGB 27.9 PG (27.0-31.0); MEAN CORPUSCULAR HGB CONC 32.5 G/DL (33.0-37.0); MEAN CORPUSCULAR VOLUME 85.7 FL (80.0-94.0); MEAN PLATELET VOLUME 7.9 FL (7.4-10.4); PLATELET COUNT 318 /CUMM (130-400); WHITE BLOOD CELL COUNT 10.3 /CUMM (4.8-10.8)
[2017-10-26 17:01] LABS: RBC DISTRIBUTION WIDTH 36.3 % (11.5-14.5)
[2017-10-26 17:07] LABS: RED BLOOD CELL CT 3.46 /CUMM (4.70-6.10)
[2017-10-26 18:18] VITALS: BP 92/62
--- NOTE | 2017-10-26 19:35 | RADIOLOGY REPORT ---
EXAMINATION: XR FEMUR, LEFT CLINICAL INFORMATION: Osteomyelitis. There is left distal thigh amputation with drainage COMPARISON: MRI of the left femur June 2017. TECHNIQUE: AP and lateral views of the left femur were obtained. FINDINGS: There are postop changes related to above knee amputation. The remaining portion of the femur appears intact without definite bone destruction or erosion. The surrounding soft tissues are unremarkable. IMPRESSION: Postop changes related to above knee amputation. No x-ray signs signs of osteomyelitis.
[2017-10-26 19:53] VITALS: BP 122/68
[2017-10-26] MEDS ORDERED: GABAPENTIN300 M2 PO (20:12)
--- NOTE | 2017-10-26 20:58 | History & Physical ---
Antony IBRAHIM,[facility] 10/26/172055: General Information and HPI MD Statement: I have seen and personally examined MCKAY BECKMAN and documented this H&P. The patient is a 62 year old M who presented with a patient stated chief complaint of [left above-knee amputation dehiscence]. Source of Information: patient History of Present Illness: 62-year-old male past history of peripheral neuropathy, hyperlipidemia, NSTEMI, PVD, asthma, GI bleed, DVT, and alcohol dependence presenting to the emergency department by Dr. Solo for stump dehiscence. Originally the patient had left above-knee amputation on 05/28/2017 and had two debridements on July 09 and July 12. The patient states that while getting out of bed this morning he felt a pop and the bone signal. Currently states that the pain is a 7 out of 10. He also states that he had a wound VAC in the area which popped out. The patient denies any headaches, fevers, chills, chest pain, palpitations, shortness of breath, abdominal pain, or changes in elimination. Allergies/Medications Allergies: Coded Allergies: codeine (Mild, SHAKES 07/09/17) Home Med list Albuterol Sulfate (Ventolin Hfa) 90 MCG HFA.AER.AD 2 PUF INH Q4-6 PRN PRN SHORTNESS OF BREATH Apixaban (Eliquis) 5 MG TABLET 1 TAB PO BID blood clots Aspirin (Aspirin*) 81 MG TAB.CHEW 81 MG PO DAILY heart health Gabapentin (Neurontin) 300 MG CAPSULE 1 CAP PO TID NERVE PAIN (Reported) Mometasone/Formoterol (Dulera 200 Mcg/5 Mcg Inhaler) 200 MCG-5 MCG/ACTUATION HFA.AER.AD 2 PUF INH BID ASTHMA (Reported) Multiple Vitamin (Multivitamins) 1 EACH TABLET 1 TAB PO DAILY SUPPLEMENT ( Reported) Omeprazole 20 MG CAPSULE.DR 40 MG PO DAILY AC GI BLEED Pravastatin Sodium 20 MG TABLET 1 TAB PO DAILY HLD (Reported) Ranitidine HCl 300 MG TABLET 1 TAB PO QPM GI (Reported) Past History Travel History Traveled to [place] past 21 day No Medical History Neurological: peripheral neuropathy EENT: NONE Cardiovascular: hyperlipidemia, myocardial infarction, PVD Respiratory: asthma Gastrointestinal: lower GI bleed Hepatic: NONE Renal: NONE Musculoskeletal: NONE Psychiatric: alcohol dependence Endocrine: NONE Blood Disorders: DVT 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 , Age 62. FATHER (HEART CONDITION). , Age 60+. Psychosocial History Services at Home: None ETOH Use: denies use Illicit Drug Use: denies illicit drug use Functional Ability ADLs Independent: dressing, eating, toileting, bathing. Review of Systems Review of Systems Constitutional: Reports: no symptoms. Cardiovascular: Reports: no symptoms. Respiratory: Reports: no symptoms. GI: Reports: no symptoms. Genitourinary: Reports: no symptoms. Musculoskeletal: Reports: see HPI. Skin: Reports: no symptoms. Neurological/Psychological: Reports: no symptoms. Exam & Diagnostic Data Last 24 Hrs of Vital Signs/I&O Vital Signs Date Time Temp Pulse Resp B/P B/P Pulse O2 O2 Flow FiO2 Mean Ox Delivery Rate 10/26 2232 98.0 92 20 118/64 97 Room Air 10/26 1952 98.3 104 20 122/68 10/26 195 98.3 104 20 122/68 98 Room Air 10/26 1818 9506.0 99 18 9262 10/26 1803 95.6 99 18 98 Room Air 10/26 1605 97 10/26 1520 97.5 134 20 105/67 Intake & Output 10/26 1600 10/26 0800 10/26 0000 Intake Total Output Total Balance Patient 168 lb Weight Physical Exam General Appearance Cooperative, No Acute Distress, patient was intermittently fall asleep during exam Skin multiple bruises throughout his body including right medial arm, right buttock,left lateral arm, right forehead, right back, left buttock decubitus ulcer, bilateral medial thigh erythema Cardiovascular irregularly irregular, systolic flow murmur Lungs inspiratory wheeze heard on anterior exam, decreased air movement/ respiratory effort on posterior exam diffusely Abdomen Soft, No Tenderness, decreased bowel sounds, left stool palpated Extremities left above knee amputation with wound dehisence and complete exposure of femur, mild white discharge on muscle surrounding femur Vascular 2+ radial pulses Last 24 Hrs of Labs/Rahat: Laboratory Tests 10/26/17 1606: Anion Gap 9, Estimated GFR > 60, BUN/Creatinine Ratio 10.0, Glucose 89, Calcium 7.8 L, Magnesium 1.5 L, CBC w Diff NO MAN DIFF REQ, RBC 3.46 L, MCV 85.7, MCH 27.9, MCHC 32.5 L, RDW 36.3 H, MPV 7.9, Gran % 78.0 H, Lymphocytes % 12.8 L, Monocytes % 7.6, Eosinophils % 1.4, Basophils % 0.2, Absolute Granulocytes 8.0 H, Absolute Lymphocytes 1.3, Absolute Monocytes 0.8 H, Absolute Eosinophils 0.1 , Absolute Basophils 0, Serum Alcohol 17.0 Microbiology 10/26 2158 BLOOD: Blood Culture - ORD 10/26 2158 BLOOD: Blood Culture - ORD Assessment/Plan Assessment: 62-year-old male past history of L AKA (05/28) + 2 debridements peripheral neuropathy, hyperlipidemia, NSTEMI, PVD, asthma, GI bleed, DVT, and alcohol dependence presenting to the emergency department by Dr. Solo for stump dehiscence. #R above-knee amputation dehiscence Left leg x-rays does not show osteomyelitis T 98.3 WBC 10.3 Patient received one dose of doxycycline in the ED -Start Unasyn -Follow-up panculture -continue IV fluids -Holding aspirin/Eliquis for surgery -Keep nothing by mouth for surgery tomorrow by vascular -f/u wound consult -Continue pain control #History of alcohol abuse Patient drinks 2-3 beers per day Serum alcohol 17 -CIWA protocol and ativan prn #Electrolytes abnormalities Sodium 136, K3.1, serum osmolality 265, calcium 7.8, magnesium 1.5, BUNs B, creatinine 0.3 -Most likely due to alcohol and poor by mouth intake -Continue IV fluids as stated above, encourage by mouth intake -Repeat electrolytes as needed -Continue thiamine, folate, multivitamin -f/u Nutrition consult -Follow-up social work consult #multiple bruises/decibutus ulcer Patient states that he did not fall. However patient appears to be a poor historian. -Follow-up wound care consult #Asthma/COPD Patient states that he does not have COPD however he has a 0.5 pack smoker X 20 years -continue Albuterol, Mometasone/Formoterol #DVT hx -continue Apixaban #CAD/OR -cont aspirin, pravastatin #chronic pain -Continue gabapentin #GERD -Continue omeprazole, ranitidine #Preventative health -Offer flu shot as patient did not get a flu shot this year -Continue Multiple Vitamin (Multivitamins) #Full code #DVT prophylaxis As Ranked By This Provider Problem List: 1. Amputated left leg 2. Alcohol use Core Measures/Misc (06/13) Acute Coronary Syndrome ACS Diagnosis: No Congestive Heart Failure Congestive Heart Failure Diagnosis No Cerebrovascular Accident CVA/TIA Diagnosis: No VTE (View Protocol) VTE Risk Factors Acute Medical Illness No Mechanical VTE Prophylaxis d/t Other (LLE AKA) No VTE Pharm Prophylaxis d/t NA PharmProphylax ordered Sepsis (View protocol) Sepsis Present: No AntwanRusty 10/26/17 2201: Resident Review Statement Resident Statement: discussed with internal affairs investigator Other Findings: 62-year-old man with a history of alcohol abuse, asthma and recurrent DVT on Eliquis, h/o UGI bleed, GERD, neuropathy, NSTEMI, left lower extremity ischemia , requiring a left popliteal and SFA thrombectomy as well as a compartment fasciotomy, with eventual recovery and discharge, but with recurrent ischemia to the left leg requiring a left AKA on 05/28/2017. He had Left AKA stump infection in 06/2017 s/p I&D, debridement and washout x [address] Crystal[address] OR cultures were positive for Group B strep, Staph aureus sensitive to Oxacillin , Proteus and diphtheroids. He was discharged on Keflex. He presented to ER with complaint of left AKA stump dehiscence that according to patient happened today when he was trying to get out of the bed, felt a pop and noticed the bone was sticking out. He lives alone and has VNA services at home. He sees Dr. Crystal today who advised him to go to ER. Right now he is complaining of 7/10 pain in his left leg stump. He reports having a fall 2 weeks ago on side railing and has a bruise on lateral side of his right thigh and right arm. He is on wheelchair since left AKA. Other review of systems negative. He smokes half pack per day for last 20 years. He drinks 2-3 beers every day. Vitals on admission: Temperature 97.5, pulse 134, respiration 20, blood pressure 105/67 and oxygen saturation 97% on room air. Pertinent physical exam findings: Left leg AKA stump is open with bone sticking out. Medial side of the wound has yellow slough. No discharge noticed. Surrounding erythema and tenderness. Medial side of the right thigh is also erythematous. There is a big bruise and skin abrasion on the lateral side of her right thigh. There are also some bruises on his both arms, 4 head and on the back. There is a stage II decubitus ulcer on left buttock. Right leg is also swollen. Diminished breath sounds on lung auscultation. Pertinent labs: H&H 9.6/29.6, sodium 136, potassium 3.1, creatinine 0.3, magnesium 1.5, serum alcohol 17. Blood cultures 2 were drawn. Left femur x-ray did not show any evidence of osteomyelitis Assessment and plan 62-year-old man with a history of alcohol abuse, asthma and recurrent DVT on Eliquis, h/o UGI bleed, GERD, neuropathy, NSTEMI, left lower extremity ischemia , requiring a left popliteal and SFA thrombectomy as well as a compartment fasciotomy but with recurrent ischemia to the left leg requiring a left AKA on 05/28/2017. He had Left AKA stump infection in 06/2017 s/p I&D, debridement and washout x 2. He was seen by Dr. Galindo mike the today who advised him to go to ER for evaluation and probably plan is to do I&D/debridement and washout again. PLAN * Admit on general medicine floor * Vitals every shift * Nothing by mouth after midnight tonight for possible I&D/debridement and washout by vascular tomorrow morning * IV fluids after midnight * Will start him on IV Unasyn * Follow up Blood cultures * CIWA protocol * Ativan as needed per CIWA * We are holding aspirin and Eliquis for now. Will restart after OR procedure tomorrow * We will continue rest of his home medications * Check electrolytes daily and replete accordingly * Multivitamins/thiamine/folic acid * Pain management pathway * DVT prophylaxis * Full code Francoise Barroso 10/27/17 0022: Attending MD Review Statement Attending Statement Attending MD Statement: examined this patient, discuss w/resident/PA/INSTALLMENT LOAN COLLECTOR, agreed w/resident/PA/INSTALLMENT LOAN COLLECTOR, reviewed EMR data (avail), reviewed images, amended to note Attending Assessment/Plan: CC: Sent by insertion for possible stump debridement PMH: Asthma/COPD, HLD, suspected CAD s/p NSTEMI, alcoholism with history of alcohol withdrawal seizures, history of DVT S/P IVC filter fistulotomy and thrombectomy, history of PVD and PAD S/P left transfemoral amputation in May 2017 and stump I&D in June 2017 History is ambiguous. Patient is poor historian and does not provide the details. According to him, he was trying to get off the bed then he noticed a pop pop sensation on his left femoral stump then he noticed bone protruding through the wound. He had a scheduled appointment with the vascular surgeon today as a routine follow-up so he was seen by him and was suggested to go to ER for admission for possible surgery. Patient denies any trauma yesterday, any pus discharge, fever or chills. He endorses pain on left side. On examination there is extensive bruising on the right side and some open wounds, patient states that he does not recall recent fall and probably had it since a month when he fell. He ambulates with the help of a wheelchair, has home health nursing visiting. He goes to see vascular surgeon every week. According to him, his qi were removed 1 month back, at that time it was scar which peeled off. Vitals: T max 98.3, pulse 99 - 104, RR 20, blood pressure 105/67 on arrival >> 92/62 >> 122/68, saturating 98% on room air On exam: A O 3, cooperative, no acute distress, neck supple, JVD normal, no lymphadenopathy, mucosa moist, no focal neurological deficit, +1 leg edema right side, CVS: S1-S2, RRR. RS: Clear to auscultate bilaterally. Abdomen: Soft, NT, ND, bowel sounds present. Multiple bruises on the back and buttock on the right side, small open wound which appears secondary to trauma on the right side back. Decubitus ulcer left buttock 4 cm diameter, stage II, left transfemoral amputation: Bone and muscles visible, mild pus discharge, no crepitation or fluctuation. There is redness in inguinal area, no tenderness, warmth or crepitus. Labs: WBC 10.3, hemoglobin 9.6, hematocrit 29.6, platelet 2318, neutrophils 78%, sodium 136, potassium 3.1, chloride 105, bicarbonate 22, BUN 3, creatinine 0.3, glucose 89, calcium 7.8, magnesium 1.5 alcohol 17 Left Femur x-ray:Postop changes related to above knee amputation. No x-ray signs signs of osteomyelitis. Assessment and plan 62-year-old male with extensive past medical history, vasculopath, S/P transfemoral amputation left side in May 2017 followed by debridement than 2 times in June 2017, has been following up with vascular surgeon and has home health nursing since then, came to ER for operating up sensation in his left stump where he saw bone coming out of the wound. Patient is a poor historian and there are many loose ends in the history for example he has multiple bruises on the back and buttock on the right side, small open wound which appears secondary to trauma on the right side back. Given the color of the bruises that appear pretty recent but denies any recent trauma. He also has a decubitus of wound on left buttock. Left stump is always in flexed position, unhealthy tissue, muscle and bone protruding with very minimum pus discharge, no crepitus or fluctuation. Patient had been afebrile in ER but mildly hypotensive and responded to fluids. There is No significant leukocytosis or left shift, he has chronic anemia but his BUN is 3, indicating severe malnourishment. Patient drinks 2-3 beers, denies any binge drinking but I suspect more alcohol intake than that given his malnutrition, low BUN, multiple bruises and wounds. Reviewed all his previous hospitalization, did not require significant Ativan doses in previous 3 hospitalizations. Previous cultures reviewed: polymicrobial + Left leg stump infection + Malnutrition + Watch for DTs + History of Asthma/COPD, HLD, suspected CAD s/p NSTEMI, alcoholism with history of alcohol withdrawal seizures, history of DVT S/P IVC filter fistulotomy and thrombectomy, history of PVD and PAD S/P left transfemoral amputation in May 2017 and stump I&D in June 2017 - Admit to general medicine - Continue gentle hydration normal saline at 150 mL per hour - Strict I's and O's - Consult vascular surgeon - Nothing by mouth after midnight - Blood cultures - Continue IV Unasyn - By mouth thiamine, by mouth folic acid - When necessary Ativan according to CIWA protocol - Pain management - Replete electrolytes, potassium and magnesium - Wound care consult, nutrition consult - Hold Eliquis for tonight : According to surgery plan - Patient may require short-term rehabilitation placement for proper wound healing
[2017-10-26] MEDS ORDERED: PRAVASTATIN SOD20 M2 PO (21:18)
[2017-10-26 23:00] VITALS: BP 84/60
[2017-10-27] VITALS (8 sets, daily range): BP systolic 94–140; BP diastolic 60–70
--- NOTE | 2017-10-27 00:24 | Admission Certification ---
Admission Certification Certification Statement - As attending physician, I certify that at the time of - admission, based on clinical presentation, severity of - symptoms, need for further diagnostic testing and - therapeutic interventions, and risk of adverse outcomes - without in-hospital treatment, in my clinical assessment, - this patient requires an acute hospital stay for a minimum - of two nights or longer. I have also considered psychsocial - factors such as support system, advanced age, financial - issues, cognitive issues, and failed out-patient treatments, - past re-admission history, safety of patient, and lack of - compliance as applicable. Specific rationale supporting this admission is: Left leg stump wound infection
--- NOTE | 2017-10-27 07:49 | PN- Housestaff ---
Juana Seals 10/27/17 0744: Subjective Follow-up For: #Left leg stump infection #Malnutrition Subjective: No overnight event. Patient was sleeping when I entered the room. Right Stump in dressing. Review of Systems Constitutional: Reports: see HPI. Objective Last 24 Hrs of Vital Signs/I&O Vital Signs Date Time Temp Pulse Resp B/P B/P Pulse O2 O2 Flow FiO2 Mean Ox Delivery Rate 10/27 0615 98.4 85 20 110/62 92 Nasal Cannula 10/27 0214 94/64 10/27 0000 Nasal 2.0L Cannula 10/26 2314 95 Nasal 2.0L Cannula 10/26 2300 99.2 94 18 84/60 95 Nasal 2.0L Cannula 10/26 2233 98.0 92 20 118/64 97 Room Air 10/26 1952 98.3 104 20 122/68 10/26 195 98.3 104 20 122/ 98 Room Air 10/26 1818 9506.0 99 18 92/62 10/26 1803 95.6 99 18 98 Room Air 10/26 1605 97 10/26 1520 97.5 134 20 105/67 Intake & Output 10/27 0800 10/27 0000 10/26 1600 Intake Total 1000 1460 Output Total 550 Balance 450 1460 Intake, IV 1000 1100 Intake, Oral 360 Number 2 Bowel Movements Output, Urine 550 Patient 60.498 kg 76.204 kg Weight Weight Bed scale Measurement Method Physical Exam General Appearance: Pt is sleeping Cardiovascular: Regular Rate Lungs: Clear to Auscultation, Normal Air Movement Extremities: LLE stump in dressing in flex position Current Medications: Current Medications Sig/Lillie Start time Last Medication Dose Route Stop Time Status Admin Acetaminophen 650 MG Q8P PRN 10/26 2115 AC PO Ampicillin Sodium/ 3,000 MG Q6 10/26 2359 AC 10/27 Sulbactam Sodium IV 0513 Sodium Chloride 100 ML Doxycycline Hyclate 100 MG ONCE ONE 10/26 1545 DC 10/26 Sodium Chloride 100 ML IV 10/26 1650 1604 Famotidine 40 MG QPM 10/27 2200 AC PO Folic Acid 1 MG DAILY 10/27 1000 AC PO Gabapentin 300 MG TID 10/26 2200 AC 10/26 PO 2352 Hydromorphone HCl 0.4 MG Q6P PRN 10/27 0415 AC 10/27 IV 0433 Lorazepam 0 Q1P PRN 10/26 2199 AC IV Magnesium Oxide 400 MG ONE ONE 10/26 2199 DC 10/26 PO 10/26 2200 235 Multivitamins 1 TAB DAILY 10/27 1000 AC Therapeutic PO Omeprazole 40 MG DAILY AC 10/27 0700 AC PO Potassium Chloride 60 MEQ ONE TIME ONE 10/26 2199 DC 10/26 PO 10/26 2200 235 Pravastatin Sodium 20 MG 1700 10/27 1700 AC PO Sodium Chloride 1,000 ML Q10H 10/27 0000 AC 10/27 IV 10/27 1958 0512 Thiamine HCl 100 MG DAILY 10/27 1000 AC PO Last 24 Hrs of Lab/Rahat Results Last 24 Hrs of Labs/Mics: Laboratory Tests 10/26/17 1606: Anion Gap 9, Estimated GFR > 60, BUN/Creatinine Ratio 10.0, Glucose 89, Calcium 7.8 L, Magnesium 1.5 L, CBC w Diff NO MAN DIFF REQ, RBC 3.46 L, MCV 85.7, MCH 27.9, MCHC 32.5 L, RDW 36.3 H, MPV 7.9, Gran % 78.0 H, Lymphocytes % 12.8 L, Monocytes % 7.6, Eosinophils % 1.4, Basophils % 0.2, Absolute Granulocytes 8.0 H, Absolute Lymphocytes 1.3, Absolute Monocytes 0.8 H, Absolute Eosinophils 0.1 , Absolute Basophils 0, Serum Alcohol 17.0 Microbiology 10/27 148 BLOOD: Blood Culture - RECD 10/27 146 BLOOD: Blood Culture - CAN Cancelled: SPECIMEN NOT RECEIVED IN LABORATORY Assessment/Plan Assessment: Mr. Flores is a 62-year-old male w/ PMH of left AKA (05/28) + 2 debridements peripheral neuropathy, hyperlipidemia, NSTEMI, PVD, asthma, GI bleed, DVT, and alcohol dependence presenting to the emergency department by Dr. Solo for stump dehiscence. Problem list: #R above-knee amputation dehiscence/infection Left leg x-rays does not show osteomyelitis, T 98.3, WBC 10.3 Patient received one dose of doxycycline in the ED -Continue Unasyn -Follow-up panculture -Started regular diet -Holding aspirin/Eliquis for surgery -f/u wound consult -Continue pain control #History of alcohol abuse Patient drinks 2-3 beers per day, on admission his serum alcohol 17 -[facility] protocol and ativan prn, monitor for any withdrawal/DT. #Electrolytes abnormalities Sodium 137, K3.7, serum osmolality 265, calcium 7.8, magnesium 1.4, BUNs B, creatinine 0.3 - Most likely due to alcohol and poor by mouth intake - K repleted to 3.7 - will give another dose of MgOx for Mg repletion. - Continue thiamine, folate, multivitamin - f/u Nutrition consult - Follow-up social work consult #multiple bruises/decibutus ulcer Patient states that he did not fall. However patient appears to be a poor historian, with bruises on his right sided body.. -Follow-up wound care consult #Asthma/COPD Patient states that he does not have COPD however he has a 0.5 pack smoker X 20 years -continued Albuterol, Mometasone/Formoterol #DVT hx -continued Apixaban #CAD/NE -continued aspirin, pravastatin #chronic pain -Continued gabapentin #GERD -Continued omeprazole, ranitidine #Preventative health -Offer flu shot as patient did not get a flu shot this year -Continue Multiple Vitamin (Multivitamins) #Full code #DVT prophylaxis apixaban + ALPS Regular diet Full Code Problem List: 1. Status post above knee amputation of left lower extremity Pain Ratin Pain Location: Pt is sleeping Pain Goal: Remain pain free Pain Plan: see AP Tomorrow's Labs & Rationales: CBC/BEP Mark Seth 10/27/17 1202: Attending MD Review Statement Attending Statement Attending MD Statement: examined this patient, discuss w/resident/PA/SOFTWARE SOLUTIONS ARCHITECT, agreed w/resident/PA/SOFTWARE SOLUTIONS ARCHITECT, discussed with family, reviewed EMR data (avail), discussed with nursing, discussed with case mgmt, reviewed images, amended to note Attending Assessment/Plan: Patient is poor historian. Patient admitted for left hip infection with redness. Xray negative for osteomyelitis. Patient seen/examined bedside. 1. Left leg stump infection/celullitis. 2. Malnutrition 3. Watch for DTs 4. As per past medical history - c/w IVF, iv abx. - Consult vascular surgeon, plan for revision of stump as per vascular surgery. - Blood cultures f/u. - Thiamine, folic acid - When necessary Ativan according to [facility] protocol - Pain management - Replete electrolytes prn - Wound care consult, nutrition consult - eliquis as per surgical team - Patient may require short-term rehabilitation placement for proper wound healing at discharge. gi/dvt prophyalxis full code.
[2017-10-27 09:06] LABS: ABSOLUTE BASOPHIL COUNT 0 /CUMM (0.0-0.2); ABSOLUTE EOSINOPHIL COUNT 0.1 /CUMM (0.0-0.7); ABSOLUTE GRANULOCYTE CT 6.9 /CUMM (1.4-6.5); ABSOLUTE LYMPH COUNT 1.5 /CUMM (1.2-3.4); ABSOLUTE MONOCYTE COUNT 0.7 /CUMM (0.10-0.60); BASOPHIL % 0.1 % (0.0-2.0); EOSINOPHIL % 0.7 % (0-5); MEAN CORPUSCULAR HGB 28.2 PG (27.0-31.0); MEAN CORPUSCULAR HGB CONC 32.7 G/DL (33.0-37.0); MEAN CORPUSCULAR VOLUME 86.2 FL (80.0-94.0); MEAN PLATELET VOLUME 8.1 FL (7.4-10.4); PLATELET COUNT 276 /CUMM (130-400); RBC DISTRIBUTION WIDTH 35.4 % (11.5-14.5); RED BLOOD CELL CT 3.25 /CUMM (4.70-6.10); WHITE BLOOD CELL COUNT 9.2 /CUMM (4.8-10.8)
--- NOTE | 2017-10-27 10:42 | PN- Vascular Surgery ---
Surgical Brief Attending Note Brief Attending Note: Patient is on OR schedule on wednesday for left AKA stump revision if appropriate from medical standpoint. Full consult to follow. Thank you
[2017-10-28] VITALS: BP 110/60
[2017-10-28 02:00] VITALS: BP 110/60
[2017-10-28 06:00] VITALS: BP 104/54
--- NOTE | 2017-10-28 09:19 | PN- Vascular Surgery ---
Subjective Subjective: . Objective Vital Signs and I&Os Vital Signs Date Time Temp Pulse Resp B/P B/P Pulse O2 O2 Flow FiO2 Mean Ox Delivery Rate 10/28 06 98.4 84 20 104/54 10/28 0600 98.4 84 20 91 Nasal 2.0L Cannula 10/28 0200 99.2 86 20 110/60 10/28 0000 Nasal 2.0L Cannula 10/28 0000 99.2 86 20 110/60 10/27 2241 99.2 86 20 110/60 90 Nasal Cannula 10/27 1600 97 Nasal 2.0L Cannula 10/27 1428 98.0 97 19 140/70 94 10/27 1400 98.4 85 20 110/62 10/27 1200 98.4 85 20 110/62 10/27 1000 98.4 85 20 11062 Intake & Output 10/28 1600 10/28 0800 10/28 0000 10/27 1600 10/27 0800 10/27 0000 Intake Total 60 331 129 4142 1460 Output Total 450 550 Balance 60 -250 050 827 6744 Intake, IV 10 801 993 9299 1100 Intake, Oral 50 360 Number 2 Bowel Movements Output, Urine 450 550 Patient 132 lb 133 lb Weight Weight Bed scale Measurement Method Assessment/Plan Assessment/Plan plan for OR tomorrow for AKA revision. hold eliquis starting now, may restart post op. appreciate medical clearance. Core Measures Venous Thromboembolism VTE Risk Factors Acute Medical Illness No Mechanical VTE Prophylaxis d/t Other (LLE AKA) No VTE Pharm Prophylaxis d/t NA PharmProphylax ordered
[2017-10-28 09:34] LABS: ABSOLUTE BASOPHIL COUNT 0 /CUMM (0.0-0.2); ABSOLUTE EOSINOPHIL COUNT 0.1 /CUMM (0.0-0.7); ABSOLUTE GRANULOCYTE CT 13.9 /CUMM (1.4-6.5); ABSOLUTE LYMPH COUNT 1.7 /CUMM (1.2-3.4); BASOPHIL % 0.2 % (0.0-2.0); EOSINOPHIL % 0.3 % (0-5); GRANULOCYTE % 83.3 % (42.2-75.2); HEMATOCRIT 28.8 % (42-52); MEAN CORPUSCULAR HGB 28.5 PG (27.0-31.0); MEAN CORPUSCULAR HGB CONC 32.5 G/DL (33.0-37.0); MEAN CORPUSCULAR VOLUME 87.8 FL (80.0-94.0); PLATELET COUNT 243 /CUMM (130-400); RBC DISTRIBUTION WIDTH 34.6 % (11.5-14.5); RED BLOOD CELL CT 3.28 /CUMM (4.70-6.10)
--- NOTE | 2017-10-28 10:10 | PN- Housestaff ---
Juana Seals Pardeep Casey 10/28/17 1010: Subjective Follow-up For: #Left leg stump infection #Malnutrition Subjective: No overnight event. Review of Systems Constitutional: Reports: see HPI. Objective Last 24 Hrs of Vital Signs/I&O Vital Signs Date Time Temp Pulse Resp B/P B/P Pulse O2 O2 Flow FiO2 Mean Ox Delivery Rate 10/28 1449 97 Non 100% ReBreather 10/28 1435 97 Part 60% ReBreather 10/28 1410 Non 100% ReBreather 10/28 1410 90 Nasal 4.0L Cannula 10/28 1410 98.7 91 20 120/86 93 Nasal 4.0L Cannula 10/28 08 91 Nasal 2.0L Cannula 10/28 06 98.4 84 20 104/54 10/28 0600 98.4 84 20 104/54 91 Nasal 2.0L Cannula 10/28 0200 99.2 86 20 110/60 10/28 0000 Nasal 2.0L Cannula 10/28 0000 99.2 86 20 110/60 10/27 2241 99.2 86 20 110/60 90 Nasal Cannula Intake & Output 10/28 1600 10/28 0800 10/28 0000 Intake Total 600 60 200 Output Total 800 450 Balance -200 60 -250 Intake, IV 10 200 Intake, Oral 600 50 Output, Urine 800 450 Physical Exam General Appearance: Pt is sleeping this morning when I entered Current Medications: Current Medications Sig/Lillie Start time Last Medication Dose Route Stop Time Status Admin Acetaminophen 650 MG Q8P PRN 10/26 2115 AC PO Albuterol Sulfate 3 ML Q4P PRN 10/28 1430 AC 10/28 INH 1427 Ampicillin Sodium/ 3,000 MG Q6 10/26 2359 DC 10/28 Sulbactam Sodium IV 0545 Sodium Chloride 100 ML Apixaban 5 MG BID 10/28 1000 CAN PO Famotidine 40 MG QPM 10/27 2200 AC 10/27 PO 2209 Folic Acid 1 MG DAILY 10/27 1000 AC 10/28 PO 0954 Furosemide 20 MG ONCE ONE 10/28 1615 DC 10/28 IV 10/28 1616 1614 Furosemide 20 MG ONCE ONE 10/28 1430 DC 10/28 IV 10/28 1431 1445 Gabapentin 300 MG TID 10/26 2200 AC 10/28 PO 1614 Heparin Sodium 25,000 UNIT Q24H 10/28 1445 AC (Porcine) IV Sodium Chloride 500 ML Hydromorphone HCl 1 MG ONCE ONE 10/28 1100 DC 10/28 IV 10/28 1101 1052 Hydromorphone HCl 0.4 MG Q6P PRN 10/27 0415 AC 10/28 IV 0537 Lorazepam 0 Q1P PRN 10/26 2200 AC IV Magnesium Oxide 400 MG ONE ONE 10/27 1645 DC 10/27 PO 10/27 1646 2218 Multivitamins 1 TAB DAILY 10/27 1000 AC 10/28 Therapeutic PO 0954 Non-Formulary 0 SEE ADMIN CRITERIA 10/27 2245 CAN Medication ANY Omeprazole 40 MG DAILY AC 10/27 0700 AC PO Pravastatin Sodium 20 MG 1700 10/27 1700 AC 10/28 PO 1614 Thiamine HCl 100 MG DAILY 10/27 1000 AC 10/28 PO 0954 Last 24 Hrs of Lab/Rahat Results Last 24 Hrs of Labs/Mics: Laboratory Tests 10/28/17 1450: Troponin I < 0.01, Ogw-Y-Qywkelzgxhf Pept 2230 H 10/28/17 1410: D-Dimer High Sensitivty 681 H 10/28/17 1400: pH 7.49 H, pCO2 31 L, pO2 54 L, HCO3 23, ABG O2 Sat (Measured) 87.0 L, Carboxyhemoglobin 2.1, O2 Concentration % 4L, O2 Delivery Method NC, Phlebotomy Draw Site LEFT RADIAL 10/28/17 1331: D-Dimer High Sensitivty Cancelled 10/28/17 0842: Anion Gap 7, Estimated GFR > 60, BUN/Creatinine Ratio 10.0, Magnesium 1.4 L, CBC w Diff MAN DIFF ORDERED, RBC 3.28 L, MCV 87.8, MCH 28.5, MCHC 32.5 L, RDW 34.6 H, MPV 8.0, Gran % 83.3 H, Lymphocytes % 10.1 L, Monocytes % 6.1, Eosinophils % 0.3, Basophils % 0.2, Absolute Granulocytes 13.9 H, Segmented Neutrophils 80 H, Band Neutrophils 3, Absolute Lymphocytes 1.7, Lymphocytes 11 L, Monocytes 6, Absolute Monocytes 1.0 H, Absolute Eosinophils 0.1, Absolute Basophils 0, Platelet Estimate VERIFIED BY SMEAR, Hypochromic-Microcytic 1+, Poikilocytosis 1+, Anisocytosis 2+, Target Cells FEW Assessment/Plan Assessment: Mr. Flores is a 62-year-old male w/ PMH of left AKA (05/28) + 2 debridements peripheral neuropathy, hyperlipidemia, NSTEMI, PVD, asthma, GI bleed, DVT, and alcohol dependence presenting to the emergency department by Dr. Solo for stump dehiscence. Problem list: #R above-knee amputation dehiscence/infection Left leg x-rays does not show osteomyelitis, T 98.3, WBC 10.3 Patient received one dose of doxycycline in the ED -Discontinued unasyn as patient remained afebrile and not leukocytic -Follow-up panculture -Started regular diet -Holding aspirin/Eliquis for surgery -f/u wound consult -Continue pain control #History of alcohol abuse Patient drinks 2-3 beers per day, on admission his serum alcohol 17 -CIWA protocol and ativan prn, monitor for any withdrawal/DT. 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 - Continued thiamine, folate, multivitamin - f/u Nutrition consult - Follow-up social work consult #multiple bruises/decibutus ulcer Patient states that he did not fall. However patient appears to be a poor historian, with bruises on his right sided body.. -Follow-up wound care consult #Asthma/COPD Patient states that he does not have COPD however he has a 0.5 pack smoker X 20 years -continued Albuterol, Mometasone/Formoterol #DVT hx -hold on Apixaban #CAD/IN -Hold ASA, continued pravastatin #chronic pain -Continued gabapentin #GERD -Continued omeprazole, ranitidine #Preventative health -Offer flu shot as patient did not get a flu shot this year -Continue Multiple Vitamin (Multivitamins) #Full code #DVT prophylaxis apixaban + ALPS Regular diet Full Code Problem List: 1. Status post above knee amputation of left lower extremity Pain Ratin Pain Location: NA Pain Goal: Remain pain free Pain Plan: see AP Tomorrow's Labs & Rationales: CBC/BEP Heena Thacker MD 10/28/17 8391: Attending MD Review Statement Attending Statement Attending MD Statement: examined this patient, discuss w/resident/PA/BULLET SWAGING MACHINE ADJUSTER, agreed w/resident/PA/BULLET SWAGING MACHINE ADJUSTER, reviewed EMR data (avail), discussed with nursing, discussed with case mgmt, reviewed images Attending Assessment/Plan: 62-year-old male with past medical history of presumed peripheral arterial disease from atherosclerosis, history of alcohol abuse and history of previous AKA. He's been admitted with a wound dehiscence and vascular was going to take him to the OR in a.m. for revision of the stump. He had been started empirically on IV Unasyn for a ?cellulitis but we stopped the Unasyn early this morning after curb siding ID and discussing with vascular surgery. Early this afternoon he desaturated and became profoundly hypoxemic. He is requiring 6 L to maintain a sat of 90% and his gas shows his PO2 of 54 on 4 L. In review it appears that he's gotten 2 L of fluid in the last 48 hours and his chest x-ray is being read as diffuse interstitial edema. He is Lasix johnny so we'll give him 1 dose of 20 mg of IV Lasix and follow his output closely. Given that he also has a history of DVT, his most recent DVT was in July 2017 where he had a nonocclusive thrombus of his common femoral vein and given that he was on Eliquis and the anticoagulation was stopped in anticipation of going to the OR tomorrow the possibility of VTE has to be entertained. At this point I started him on IV unfractionated heparin without a bolus. He confirms that his last dose of Eliquis was on October 26. Will get a stat CTA. And I also notified vascular surgery that given these medical issues he probably cannot go to the OR tomorrow. The recording studio internship accompanied him for the stat CTA and we are awaiting the report. I also called Dr. Pérez who is air cargo ground operations supervisor today for an official consult. We ordered an echocardiogram to assess his LV function, his last echo in January 2017 showed moderate TR and pulmonary hypertension but a normal EF and no obvious diastolic dysfunction. We will follow him closely clinically, repeat Lasix as needed. Also ordered stat BNP and troponin. Will have a low threshold to transfer him to telemetry or ICU depending on his clinical status.
--- NOTE | 2017-10-28 10:22 | Event Note ---
Event Note Event Note: Discussed with Dr. Quezada over the phone who had consulted the patient back in 06/2017 for his left AKA with OR culture positive for proteus, GBS, and Staph Aureus but without MRI evidence of osteomyelitis. Dr. Quezada advised to discontinue Unasyn as patient came without fever or leukocytosis. Would monitor off ABx till OR event.
[2017-10-28 10:31] LABS: WHITE BLOOD CELL COUNT 16.6 /CUMM (4.8-10.8)
--- NOTE | 2017-10-28 11:35 | Cons- Vascular Surgery ---
General Information and HPI Consulting Request Date of Consult: 10/28/17 Requested By: Kirstie IBRAHIM,Heena Villanueva Reason for Consult: Evaluation of AKA dehiscence Source of Information: patient, old records Exam Limitations: no limitations History of Present Illness: 62yo male who presented to [facility] after being seen in the office for a wound follow up. He stated that yesterday morning he felt something "pop" and also heard a noise at the same time, after which his wound vac which was on his left AKA had a bone popping through it. Pt has had numerous procedures on his left lower extremity over the past several months, beginning with a thrombectomy and followed by an AKA and revision. His last admission was in June where on 07/09 he was brought to the OR for I&D/washout of AKA wound, with an additional washout with wound vac placement on 07/12/17. He was seen and managed by ID for antibiotic therapy. His vac has been managed by wound care/home nursing, with vascular follow up since his discharge. He denies any pain at the site - of note, he has bilateral sacral decubiti which are painful. Of note, he has a history of noncompliance and is not good with follow up. His story apparantly had some inconsistincies on admission per the medical record. His blood serum content was 17 on admission. He admits to daily drinking and claims to have stopped smoking. Allergies/Medications Allergies: Coded Allergies: codeine (Mild, SHAKES 07/09/17) Home Med List: Albuterol Sulfate (Ventolin Hfa) 90 MCG HFA.AER.AD 2 PUF INH Q4-6 PRN PRN SHORTNESS OF BREATH Apixaban (Eliquis) 5 MG TABLET 1 TAB PO BID blood clots Aspirin (Aspirin*) 81 MG TAB.CHEW 81 MG PO DAILY heart health Gabapentin (Neurontin) 300 MG CAPSULE 1 CAP PO TID NERVE PAIN (Reported) Mometasone/Formoterol (Dulera 200 Mcg/5 Mcg Inhaler) 200 MCG-5 MCG/ACTUATION HFA.AER.AD 2 PUF INH BID ASTHMA (Reported) Multiple Vitamin (Multivitamins) 1 EACH TABLET 1 TAB PO DAILY SUPPLEMENT ( Reported) Omeprazole 20 MG CAPSULE.DR 40 MG PO DAILY AC GI BLEED Pravastatin Sodium 20 MG TABLET 1 TAB PO DAILY HLD (Reported) Ranitidine HCl 300 MG TABLET 1 TAB PO QPM GI (Reported) Current Medications: Current Medications Sig/Lillie Start time Last Medication Dose Route Stop Time Status Admin Acetaminophen 650 MG Q8P PRN 10/26 2115 AC PO Ampicillin Sodium/ 3,000 MG Q6 10/26 2359 DC 10/28 Sulbactam Sodium IV 0545 Sodium Chloride 100 ML Apixaban 5 MG BID 10/28 1000 CAN PO Famotidine 40 MG QPM 10/27 2200 AC 10/27 PO 2209 Folic Acid 1 MG DAILY 10/27 1000 AC 10/28 PO 0954 Gabapentin 300 MG TID 10/26 2200 AC 10/28 PO 0954 Hydromorphone HCl 1 MG ONCE ONE 10/28 1100 DC 10/28 IV 10/28 1101 1052 Hydromorphone HCl 0.4 MG Q6P PRN 10/27 0415 AC 10/28 IV 0537 Lorazepam 0 Q1P PRN 10/26 2200 AC IV Magnesium Oxide 400 MG ONE ONE 10/27 1645 DC 10/27 PO 10/27 1646 2218 Multivitamins 1 TAB DAILY 10/27 1000 AC 10/28 Therapeutic PO 0954 Non-Formulary 0 SEE ADMIN CRITERIA 10/27 2245 CAN Medication ANY Omeprazole 40 MG DAILY AC 10/27 0700 AC PO Pravastatin Sodium 20 MG 1700 10/27 1700 AC 10/27 PO 1649 Sodium Chloride 1,000 ML Q10H 10/27 0000 DC 10/27 IV 10/27 1959 0512 Thiamine HCl 100 MG DAILY 10/27 1000 AC 10/28 PO 0954 Past History Medical History Blood Transfusion Hx: Yes Neurological: peripheral neuropathy EENT: NONE Cardiovascular: hyperlipidemia, myocardial infarction, PVD Respiratory: asthma Gastrointestinal: lower GI bleed Hepatic: NONE Renal: NONE Musculoskeletal: NONE Psychiatric: alcohol dependence Endocrine: NONE Blood Disorders: DVT Cancer(s): NONE PASTE UP ARTIST APPRENTICE/Reproductive: NONE Surgical History Pertinent Surgical History: fasciotomy, thrombectomy left above the knee amputation (06/13) Family History Relations & Conditions If Any: MOTHER (HEART CONDITION). , Age 62. FATHER (HEART CONDITION). , Age 60+. Psychosocial History Where Do You Live? Home Services at Home: Nursing Smoking Status: Current Everyday Smoker ETOH Use: denies use Illicit Drug Use: denies illicit drug use Functional Ability ADLs Independent: dressing, eating, toileting, bathing. Review of Systems Review of Systems: Pain at left sacral area from open wound. Left stump area is not painful. Exam & Diagnostic Data Vital Signs and I&O Vital Signs Date Time Temp Pulse Resp B/P B/P Pulse O2 O2 Flow FiO2 Mean Ox Delivery Rate 10/28 06 98.4 84 20 104/54 10/28 0600 98.4 84 20 104/54 91 Nasal 2.0L Cannula 10/28 0200 99.2 86 20 110/60 10/28 0000 Nasal 2.0L Cannula 10/28 0000 99.2 86 20 110/60 10/27 2241 99.2 86 20 110/60 90 Nasal Cannula 10/27 1600 97 Nasal 2.0L Cannula 10/27 1428 98.0 97 19 140/70 94 10/27 1400 98.4 85 20 110/62 10/27 1200 98.4 85 20 110/62 Intake & Output 10/28 1600 10/28 0800 10/28 0000 10/27 1600 10/27 0800 10/27 0000 Intake Total 60 626 122 0780 1460 Output Total 450 550 Balance 60 -250 461 021 6481 Intake, IV 10 314 922 2059 1100 Intake, Oral 50 360 Number 2 Bowel Movements Output, Urine 450 550 Patient 132 lb 133 lb Weight Weight Bed scale Measurement Method Physical Exam: Tmax 99.2, all other vital signs stable General: alert and oriented times three Chest: clear anteriorly bilaterally, Abd: soft, good bs Ext: RLE warm, no edema, Left stump - dry gauze dressing is adhered to the tissue, removed with saline soaks. Exposed tissue is pink and granulating, no drainage, no dark discoloration, no eschar. Surrounding area without erythema. Femur is exposed for several centimeters Wound dressed with xeroform and gauze Assessment/Plan Assessment/Plan 62yo male with extensive history of pvd, alcohol dependence, copd, hld, cad, nstemi, history of alcohol withdrawal and recent numerous procedures on the LLE including thrombectomy, AKA, I&D and revision, now with left stump dehiscence and exposed femur. Admitted to medical team Plan for OR tomorrow if cleared medically NPO after midnight, hold all anticoagulants Antibiotics per ID - hold at this time Reinforce dressing if needed All other management per medical team Consult Acknowledgment - Thank you for your consult request.
[2017-10-28 14:10] VITALS: BP 120/86
--- NOTE | 2017-10-28 15:02 | RADIOLOGY REPORT ---
EXAMINATION: XR PORTABLE CHEST CLINICAL INFORMATION: Sudden onset O2 desaturation. Abnormal chest sounds, crackles. COMPARISON: Chest x-ray 09/17/2017 TECHNIQUE: Portable frontal view of the chest was obtained. 1:55 PM FINDINGS: There is diffuse interstitial opacities most pronounced in the perihilar lung extending to the lung periphery consistent with interstitial edema. This is new since prior chest x-ray. Does not however appear to be significant central pulmonary vascular congestion. Heart size is normal. Cardiomediastinal contours are normal. There is vascular wall calcifications of aorta. There is a small right pleural effusion blunting the right costophrenic angle. There is no left pleural effusion. There are healed rib fractures of the right lateral lung base seventh and eighth ribs. IMPRESSION: Diffuse interstitial opacities consistent with interstitial edema. Small right pleural effusion.
--- NOTE | 2017-10-28 16:26 | CT SCAN REPORT ---
EXAMINATION: CT ANGIOGRAM OF THE CHEST WITH AND WITHOUT CONTRAST (CT PULMONARY ANGIOGRAM FOR PE) CLINICAL INFORMATION: Rule out PE, O2 desat sudden onset, Off Apixan x 2d pending OR. Oxygen desaturation. Arterial blood gas hypoxic. COMPARISON: 09/17/2017 TECHNIQUE: Prior to contrast administration, noncontrast localization images were obtained. Subsequently, multidetector volumetric imaging was performed from the thoracic inlet to below the diaphragms following the administration of 190 mL Optiray 320 intravenous contrast. After initial images were deemed to be inadequate, the patient was administered additional contrast and reimaged. The total contrast volume is 190 mL (95+95). No contrast reaction reported. Sagittal, coronal, and MIP oblique sagittal reformatted images were obtained on the CT workstation, uploaded to PACS, and reviewed. Total exam dose-length product 840 mGy-cm. FINDINGS: QUALITY OF STUDY/CONTRAST BOLUS: Suboptimal PULMONARY ARTERIES: The contrast density in the pulmonary arteries is suboptimal despite repeating the study. The aorta and left-sided circulation is higher in density than the pulmonary arterial system, consistent with late scan relative to the bolus. No central pulmonary embolus seen. Evaluation for lobar, segmental, or subsegmental pulmonary emboli is very limited. THORACIC AORTA: No aneurysm or dissection. LUNG: As noted on the chest x-ray earlier the same day, there are extensive acute abnormalities within the lungs new since 09/17/2017. There is extensive interlobular septal thickening and areas of groundglass opacity involving the lungs bilaterally. There was a similar appearance of subtle involvement within the anterior aspect of the left upper lobe previously but the vast majority of the findings are new. PLEURA: There are new bilateral pleural effusions with fluid extending into the right major fissure. MEDIASTINUM: Normal heart size. No pericardial effusion. No hilar or mediastinal lymphadenopathy. No evidence of septal bowing or right heart strain. CHEST WALL/AXILLA: No axillary or internal mammary lymphadenopathy. OSSEOUS STRUCTURES: Multiple healed rib fractures. No definite acute osseous abnormality. UPPER ABDOMEN: The liver has a lobular contour suggesting cirrhosis. There is a small amount of perihepatic ascites. No adrenal mass. No reflux of contrast into the hepatic veins to suggest elevated right heart pressures. IMPRESSION: The study is suboptimal for evaluation of pulmonary emboli despite repeating the bolus twice. No large central pulmonary embolus seen. There are extensive bilateral pulmonary abnormalities new since the prior chest CT 09/17/2017 with extensive interlobular septal thickening and areas of patchy groundglass opacity in the lungs bilaterally with a fairly geographic distribution. The greatest areas of involvement are in the bilateral upper lobes. Small bilateral pleural effusions are present as well. The appearance is nonspecific. Acute pulmonary edema is a leading consideration although infection or inflammation, for example a drug reaction, could be considered in the appropriate clinical setting.
[2017-10-28 21:30] VITALS: BP 80/50
--- NOTE | 2017-10-28 22:02 | Event Note ---
Event Note Event Note: S: called for worsening resp status B: Pt admitted for L wound dehisence of L AKA, hx of DVT and PVD A/R: Pt wbc increased to 16k today. BP decreased to 80/40s. Pt stil requiring NC @ 40% oxygen. Temperature 101.5. Pt examined by myself, resident and attending. The wound site appears to have worsening discharge/pus. Pt unasyn was stopped today. We restarted the unasyn. IV tylenol x1 was given. Repeat CBC revealed WBC 24. Blood cx x2 were sent. Lactic acid 1.8. Pt given 1L bolus. Stat cxr: Significantly increased diffuse opacities and worsening interstitial and alveolar edema, although multifocal infection remains possible. Pt was transferred to ICU for further monitoring and optimization of BP.
[2017-10-28 23:06] LABS: ABSOLUTE BASOPHIL COUNT 0 /CUMM (0.0-0.2); ABSOLUTE EOSINOPHIL COUNT 0 /CUMM (0.0-0.7); ABSOLUTE GRANULOCYTE CT 21.3 /CUMM (1.4-6.5); ABSOLUTE LYMPH COUNT 1.5 /CUMM (1.2-3.4); ABSOLUTE MONOCYTE COUNT 1.1 /CUMM (0.10-0.60); BASOPHIL % 0.2 % (0.0-2.0); EOSINOPHIL % 0 % (0-5); GRANULOCYTE % 88.9 % (42.2-75.2); HEMATOCRIT 26.7 % (42-52); MEAN CORPUSCULAR HGB 28.4 PG (27.0-31.0); MEAN CORPUSCULAR HGB CONC 32.7 G/DL (33.0-37.0); MEAN CORPUSCULAR VOLUME 86.8 FL (80.0-94.0); PLATELET COUNT 257 /CUMM (130-400); RBC DISTRIBUTION WIDTH 34.2 % (11.5-14.5); RED BLOOD CELL CT 3.08 /CUMM (4.70-6.10)
[2017-10-29] VITALS (7 sets, daily range): BP systolic 85–135; BP diastolic 40–74
[2017-10-29 00:14] LABS: PTT 68 SEC (25-37)
--- NOTE | 2017-10-29 00:47 | RADIOLOGY REPORT ---
EXAMINATION: XR PORTABLE CHEST CLINICAL INFORMATION: Acute decompensation of respiratory status. COMPARISON: 10/28/2017 TECHNIQUE: Portable frontal view of the chest was obtained. FINDINGS: Cardiac leads overlie the chest. The lungs are well expanded. There is diffusely increased opacity with a reticular appearance throughout the lungs. While this was present in the perihilar regions on the prior study, opacities now extend throughout the entirety of both lungs, densest at the lung bases. Probable small right pleural effusion. No pneumothorax. The cardiomediastinal silhouette is unchanged. IMPRESSION: Significantly increased diffuse opacities throughout both lungs when compared to the prior radiograph. This is most suggestive of worsening interstitial and alveolar edema, although multifocal infection remains possible.
[2017-10-29 05:11] LABS: ABSOLUTE BASOPHIL COUNT 0 /CUMM (0.0-0.2); ABSOLUTE EOSINOPHIL COUNT 0 /CUMM (0.0-0.7); ABSOLUTE GRANULOCYTE CT 18.9 /CUMM (1.4-6.5); ABSOLUTE LYMPH COUNT 1.7 /CUMM (1.2-3.4); BASOPHIL % 0.1 % (0.0-2.0); EOSINOPHIL % 0 % (0-5); GRANULOCYTE % 87.4 % (42.2-75.2); HEMATOCRIT 26.3 % (42-52); MEAN CORPUSCULAR HGB 28.4 PG (27.0-31.0); MEAN CORPUSCULAR HGB CONC 32.1 G/DL (33.0-37.0); MEAN CORPUSCULAR VOLUME 88.4 FL (80.0-94.0); PLATELET COUNT 230 /CUMM (130-400); RBC DISTRIBUTION WIDTH 33.8 % (11.5-14.5); RED BLOOD CELL CT 2.98 /CUMM (4.70-6.10); WHITE BLOOD CELL COUNT 21.6 /CUMM (4.8-10.8)
--- NOTE | 2017-10-29 07:00 | Event Note ---
Event Note Event Note: S: patient desaturated to the 60's B: patient was transferred to the ICU from [facility] today for increased O2 demand and hypotension. His CXR shows diffuse opacities. AR: respiratory was called stat, RR was in the 30s. he was put on 100% O2 which only brought him up to the mid 70s, lasix 20 mg IV x2 was given. He was then placed on BiPAP at settings 20/6 ar RR 24 and his O2 sat increased to 90s. Stat ABG was done. Patient's sister was informed Plan was discussed with Dr. Dharmesh hopper and packaging machine operator, Dr. Stephens. anesthesia was informed about a low threshold for intubation
--- NOTE | 2017-10-29 07:40 | Cons- CRCU ---
General Information and HPI Consulting Request Date of Consult: 10/29/17 Requested By: Dr. Castellano Reason for Consult: Progressive respiratory failure Source of Information: old records Exam Limitations: clinical condition History of Present Illness: The patient is a 62-year-old male past history of peripheral neuropathy, hyperlipidemia, NSTEMI, PVD, asthma, GI bleed, DVT, and alcohol dependence who was admitted on 10/26/16 on the recommendation of Dr. Solo for stump dehiscence. 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 During the patient's hospital course, he received IVFs (2 liters) and he has had progressive respiratory failure despite diuresis. Yesterday, the patient was noted to have a significant oxygen desaturation and was requiring 6 lpm, but this was decreased to 4 lpm following diuresis. He has also been treated with IV Unasyn and has been followed by ID. Cultures are negative so far. Overnight, the patient has increased respiratory distress and oxygen desaturation. He also had a temp spike of 101. The patient was transferred to the ICU and placed on high flow oxygen. He received additional IVFs for borderline blood pressure, but did not require pressors. He has continued to rapidly decompensate and BIPAP was started. CXR shows progression of bilateral airspace opacities. ABG is pending. The patient is not able to contribute to the HPI. Allergies/Medications Allergies: Coded Allergies: codeine (Mild, SHAKES 07/09/17) Home Med List: Albuterol Sulfate (Ventolin Hfa) 90 MCG HFA.AER.AD 2 PUF INH Q4-6 PRN PRN SHORTNESS OF BREATH Apixaban (Eliquis) 5 MG TABLET 1 TAB PO BID blood clots Aspirin (Aspirin*) 81 MG TAB.CHEW 81 MG PO DAILY heart health Gabapentin (Neurontin) 300 MG CAPSULE 1 CAP PO TID NERVE PAIN (Reported) Mometasone/Formoterol (Dulera 200 Mcg/5 Mcg Inhaler) 200 MCG-5 MCG/ACTUATION HFA.AER.AD 2 PUF INH BID ASTHMA (Reported) Multiple Vitamin (Multivitamins) 1 EACH TABLET 1 TAB PO DAILY SUPPLEMENT ( Reported) Omeprazole 20 MG CAPSULE.DR 40 MG PO DAILY AC GI BLEED Pravastatin Sodium 20 MG TABLET 1 TAB PO DAILY HLD (Reported) Ranitidine HCl 300 MG TABLET 1 TAB PO QPM GI (Reported) Current Medications: Current Medications Sig/Lillie Start time Last Medication Dose Route Stop Time Status Admin Acetaminophen 1,000 MG ONCE ONE 10/280 DC 10/28 N/A 1 UNIT IV 10/28 2144 2205 Acetaminophen 650 MG Q8P PRN 10/26 2115 AC PO Albuterol Sulfate 3 ML Q4P PRN 10/28 1430 AC 10/28 INH 1427 Ampicillin Sodium/ 3,000 MG Q6 10/28 2359 AC 10/29 Sulbactam Sodium IV 0618 Sodium Chloride 100 ML Ampicillin Sodium/ 3,000 MG Q6 10/26 2359 DC 10/28 Sulbactam Sodium IV 0545 Sodium Chloride 100 ML Apixaban 5 MG BID 10/28 1000 CAN PO Famotidine 40 MG QPM 10/27 2200 AC 10/27 PO 2209 Folic Acid 1 MG DAILY 10/27 1000 AC 10/28 PO 0954 Furosemide 20 MG ONCE ONE 10/29 0645 DC 10/29 IV 10/29 0646 0639 Furosemide 20 MG ONCE ONE 10/29 0645 DC 10/29 IV 10/29 0646 0649 Furosemide 20 MG ONCE ONE 10/28 1615 DC 10/28 IV 10/28 1616 1614 Furosemide 40 MG .STK-MED ONE 10/28 1438 DC IV 10/28 1439 Furosemide 20 MG ONCE ONE 10/28 1430 DC 10/28 IV 10/28 1431 1445 Gabapentin 300 MG TID 10/26 2200 AC 10/28 PO 1614 Heparin Sodium 25,000 UNIT Q24H 10/28 1445 AC 10/28 (Porcine) IV 1643 Sodium Chloride 500 ML Hydromorphone HCl 0.5 MG ONCE ONE 10/28 2215 DC 10/28 IV 10/28 2216 2205 Hydromorphone HCl 1 MG ONCE ONE 10/28 1100 DC 10/28 IV 10/28 1101 1052 Hydromorphone HCl 0.4 MG Q6P PRN 10/27 0415 AC 10/28 IV 1834 Lorazepam 0 Q1P PRN 10/26 2200 AC 10/28 IV 2048 Magnesium Sulfate 1 GM Q2H 10/29 0030 DC 10/29 Dextrose/Water 100 ML IV 10/29 0429 0230 Morphine Sulfate 2 MG ONCE ONE 10/28 220 CAN IV 10/28 2201 Multivitamins 1 TAB DAILY 10/27 1000 AC 10/28 Therapeutic PO 0954 Non-Formulary 0 SEE ADMIN CRITERIA 10/27 2245 CAN Medication ANY Omeprazole 40 MG DAILY AC 10/27 0700 AC PO Potassium Chloride 10 MEQ Q1H 10/29 0030 DC 10/29 IV 10/29 0131 0453 Pravastatin Sodium 20 MG 1700 10/27 1700 AC 10/28 PO 1614 Sodium Chloride 1,000 ML Q10H 10/29 0200 CAN IV 10/29 2159 Sodium Chloride 1,000 ML BOLUS ONE 10/29 0145 CAN IV 10/29 1144 Sodium Chloride 1,000 ML BOLUS ONE 10/28 2200 DC 10/28 IV 10/28 2359 2205 Thiamine HCl 100 MG DAILY 10/27 1000 AC 10/28 PO 0954 Review of Systems Comments Unable to attain due to clinical condition. 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 , Age 62. FATHER (HEART CONDITION). , Age 60+. Psychosocial History Where Do You Live? Home Services at Home: Nursing Smoking Status: Current Everyday Smoker ETOH Use: denies use Illicit Drug Use: denies illicit drug use Functional Ability ADLs Independent: dressing, eating, toileting, bathing. Exam & Diagnostic Data Last 24 Hrs of Vital Signs/I&O Vital Signs Date Time Temp Pulse Resp B/P B/P Pulse O2 O2 Flow FiO2 Mean Ox Delivery Rate 10/29 0651 118 87 10/29 0600 108 26 112/54 10/29 0400 7.6 92 22 102/68 10/29 0400 95 Nasal 75% Cannula 10/29 0222 93 Nasal 75% Cannula 10/29 0200 102 24 10/29 0000 97.6 98 26 100/50 10/29 0000 94 Nasal 75% Cannula 10/29 0000 97.6 98 26 100/50 94 Nasal 75% Cannula 10/28 2205 101.5 10/28 2130 120 22 80/50 10/28 1600 96 Non 60% ReBreather 10/28 1449 97 Non 100% ReBreather 10/28 1435 97 Part 60% ReBreather 10/28 1410 Non 100% ReBreather 10/28 1410 90 Nasal 4.0L Cannula 10/28 141 98.7 91 20 120/86 93 Nasal 4.0L Cannula 10/28 08 91 Nasal 2.0L Cannula Intake & Output 10/29 0800 10/29 0000 10/28 1600 Intake Total 250 600 Output Total 800 Balance 250 -200 Intake, IV 250 Intake, Oral 0 600 Output, Urine 800 Patient 141 lb Weight Physical Exam General Appearance: moderate distress, on Bipap, chronically ill Head: atraumatic, normal appearance Eyes: Bilateral: PERRL. Neck: supple Respiratory: decreased breath sounds, crackles, rhonchi Cardiovascular: S1 and S2 heard, mild tachycardia Gastrointestinal: normal bowel sounds, soft, non-tender Extremities: left AKA, bandages in place Skin: normal color, warm/dry Last 48 Hrs of Labs/Rahat: Laboratory Tests 10/29/17 0345: Anion Gap 8, Estimated GFR > 60, Glucose 132 H, Calcium 7.0 L, Phosphorus 3.1, Magnesium 2.1, Total Bilirubin 0.5, AST 50, ALT 37, Albumin 1.7 L, CBC w Diff MAN DIFF ORDERED, RBC 2.98 L, MCV 88.4, MCH 28.4, MCHC 32.1 L, RDW 33.8 H, MPV 8.0, Gran % 87.4 H, Lymphocytes % 8.0 L, Monocytes % 4.5, Eosinophils % 0, Basophils % 0.1, Absolute Granulocytes 18.9 H, Segmented Neutrophils 91 H, Band Neutrophils 3, Absolute Lymphocytes 1.7, Monocytes 6, Absolute Monocytes 1.0 H, Absolute Eosinophils 0, Absolute Basophils 0, Platelet Estimate ADEQUATE , Polychromasia 1+, Hypochromic-Microcytic 1+, Poikilocytosis 1+, Basophilic Stippling SLIGHT, Ovalocytes 1+, Fld Total RBCs Counted 100 10/28/17 2332: APTT 68 H 10/28/17 2224: Lactic Acid 1.8 02/01/18 2224: Anion Gap 7, Estimated GFR > 60, Glucose 108 H, Calcium 7.0 L, Phosphorus 2.8, Magnesium 1.2 L, Total Bilirubin 0.7, AST 51, ALT 35, Troponin I 0.02, Albumin 1.8 L, CBC w Diff MAN DIFF ORDERED, RBC 3.08 L, MCV 86.8, MCH 28.4, MCHC 32.7 L, RDW 34.2 H, MPV 8.0, Gran % 88.9 H, Lymphocytes % 6.1 L, Monocytes % 4.8, Eosinophils % 0, Basophils % 0.2, Absolute Granulocytes 21.3 H, Segmented Neutrophils 87 H, Band Neutrophils 5, Absolute Lymphocytes 1.5, Lymphocytes 7 L, Monocytes 1 L, Absolute Monocytes 1.1 H, Absolute Eosinophils 0, Absolute Basophils 0, Platelet Estimate ADEQUATE, Polychromasia 1+, Poikilocytosis 1+, Anisocytosis 2+, Microcytic Cells 1+, Macrocytic Cells 1+, Target Cells FEW, Stomatocytes 1+ 10/28/17 2136: Lactic Acid Cancelled 10/28/17 1450: Troponin I < 0.01, Bhy-K-Ryivsgpapid Pept 2230 H 10/28/17 1410: D-Dimer High Sensitivty 681 H 10/28/17 1400: pH 7.49 H, pCO2 31 L, pO2 54 L, HCO3 23, ABG O2 Sat (Measured) 87.0 L, Carboxyhemoglobin 2.1, O2 Concentration % 4L, O2 Delivery Method NC, Phlebotomy Draw Site LEFT RADIAL 10/28/17 1331: D-Dimer High Sensitivty Cancelled 10/28/17 0842: Anion Gap 7, Estimated GFR > 60, BUN/Creatinine Ratio 10.0, Magnesium 1.4 L, CBC w Diff MAN DIFF ORDERED, RBC 3.28 L, MCV 87.8, MCH 28.5, MCHC 32.5 L, RDW 34.6 H, MPV 8.0, Gran % 83.3 H, Lymphocytes % 10.1 L, Monocytes % 6.1, Eosinophils % 0.3, Basophils % 0.2, Absolute Granulocytes 13.9 H, Segmented Neutrophils 80 H, Band Neutrophils 3, Absolute Lymphocytes 1.7, Lymphocytes 11 L, Monocytes 6, Absolute Monocytes 1.0 H, Absolute Eosinophils 0.1, Absolute Basophils 0, Platelet Estimate VERIFIED BY SMEAR, Hypochromic-Microcytic 1+, Poikilocytosis 1+, Anisocytosis 2+, Target Cells FEW 10/27/17 0815: Anion Gap 6, Estimated GFR > 60, BUN/Creatinine Ratio 10.0, Magnesium 1.4 L, CBC w Diff NO MAN DIFF REQ, RBC 3.25 L, MCV 86.2, MCH 28.2, MCHC 32.7 L, RDW 35.4 H, MPV 8.1, Gran % 75.0, Lymphocytes % 16.2 L, Monocytes % 8.0, Eosinophils % 0.7, Basophils % 0.1, Absolute Granulocytes 6.9 H, Absolute Lymphocytes 1.5, Absolute Monocytes 0.7 H, Absolute Eosinophils 0.1, Absolute Basophils 0 10/27/17 0747: Lactic Acid Cancelled Diagnostic Data CXR Results Significantly increased diffuse opacities throughout both lungs when compared to the prior radiograph. This is most suggestive of worsening interstitial and alveolar edema, although multifocal infection remains possible. Assessment/Plan Impression/Plan: 1. Progressive respiratory failure - may be multifactorial. CXR shows bilateral opacities suggestive of pulmonary edema, however superimposed pneumonia needs to be excluded. 2. PVD now with left stump dehiscence and exposed femur - surgery on hold due to respiratory failure. 3. Alcohol dependence. 4. COPD. 5. History of CAD and NSTEMI. 6. LLE including thrombectomy. Recommendations: * Stat ABG ordered. * BIPAP started while at the bedside. * Will adjust settings accordingly. * Low threshold for intubation if the patient decompensates. * IV lasix started. * Cardiology consult. * Continue IV Unasyn, follow up ID input. * Continue Heparin drip for therapeutic PTT. * Monitor on CIWA protocol. * MVI/thiamine/folate. * NPO, aspiration precautions. * Surgery cancelled. * Family updated. * Continue to monitor in the critical care unit. Consult Acknowledgment - Thank you for your consult request.
--- NOTE | 2017-10-29 08:15 | PN- Resident CRCU ---
Subjective HPI/CRCU Issues: Acute hypoxic respiratory failure 2/2 PNA vs pulmonary edema L wound dehisence of L AKA Hx of DVT and PVD Alcohol dependence History of CAD 24 Hour Events: Patient was transferred to ICU this AM after his respiratory status continued to worsen on Gen Med. Going through records reveal that the patient was requiring 40% of O2, and was febrile to 101.5F overnight. He was on Unsayn for cellulitis? which was D/C yesterday and then restarted for concern of sepsis. BC x2 were sent, and patient given a liter of NS bolus, he was diuresed with Lasix. A rapid response was called again earlier this AM as patient was tachypneic with a RR in the 30s. He was put on 100% O2 which only brought him up to the mid 70s, Lasix 20 mg IV x2 was given. He was then placed on BiPAP at settings 20/6 ar RR 24 and his O2 sat increased to 90s. Stat ABG was done which was c/w acidosis, with a PH of 7.29. Decision was made to intubate the patient for protection of his airway as patient was overly lethargic. Called and informed the patient's sister Mily Flores. When I examined the patient this AM, he was on BIPAP, in moderate respiratory distress, lethragic, but arousable, and responding to painful stimuli. He denies any chest pain, abdominal pain. Objective Vital Signs & I&O Last 8 Hrs of Vitals and I&O: Vital Signs Date Time Temp Pulse Resp B/P B/P Pulse O2 O2 Flow FiO2 Mean Ox Delivery Rate 10/29 0651 118 87 10/29 0640 77 Nasal 90% Cannula 10/29 0600 108 26 112/54 10/29 0400 7.6 92 22 102/68 10/29 0400 95 Nasal 75% Cannula 10/29 0222 93 Nasal 75% Cannula 10/29 0200 102 24 Exam General Appearance: awake, lethargic, mild distress, moderate distress, on BIPAP Head: atraumatic Neck: supple Respiratory: crackles, rhonchi, respiratory distress Gastrointestinal: normal bowel sounds, soft, non-tender Extremities: Left above knee amputation - stump in wound dressing, trace - 1 + R LE edema Cranial Nerves: PERRL Nutrition Nutrition: NPO Current Medications: Current Medications Sig/Lillie Start time Last Medication Dose Route Stop Time Status Admin Acetaminophen 1,000 MG ONCE ONE 10/28 2130 DC 10/28 N/A 1 UNIT IV 10/28 214 2205 Acetaminophen 650 MG Q8P PRN 10/26 2115 AC PO Albuterol Sulfate 3 ML Q4P PRN 10/28 1430 AC 10/28 INH 1427 Ampicillin Sodium/ 3,000 MG Q6 10/28 2359 AC 10/29 Sulbactam Sodium IV 0618 Sodium Chloride 100 ML Ampicillin Sodium/ 3,000 MG Q6 10/26 2359 DC 10/28 Sulbactam Sodium IV 0545 Sodium Chloride 100 ML Apixaban 5 MG BID 10/28 1000 CAN PO Famotidine 40 MG QPM 10/27 2200 AC 10/27 PO 2209 Folic Acid 1 MG DAILY 10/27 1000 AC 10/28 PO 0954 Furosemide 20 MG ONCE ONE 10/29 0645 DC 10/29 IV 10/29 0646 0639 Furosemide 20 MG ONCE ONE 10/29 0645 DC 10/29 IV 10/29 0646 0649 Furosemide 20 MG ONCE ONE 10/28 1615 DC 10/28 IV 10/28 1616 1614 Furosemide 40 MG .STK-MED ONE 10/28 1438 DC IV 10/28 1439 Furosemide 20 MG ONCE ONE 10/28 1430 DC 10/28 IV 10/28 1431 1445 Gabapentin 300 MG TID 10/26 2200 AC 10/28 PO 1614 Heparin Sodium 25,000 UNIT Q24H 10/28 1445 AC 10/28 (Porcine) IV 1643 Sodium Chloride 500 ML Hydromorphone HCl 0.5 MG ONCE ONE 10/28 2215 DC 10/28 IV 10/28 2216 2205 Hydromorphone HCl 1 MG ONCE ONE 10/28 1100 DC 10/28 IV 10/28 1101 1052 Hydromorphone HCl 0.4 MG Q6P PRN 10/27 0415 AC 10/28 IV 1834 Lorazepam 0 Q1P PRN 10/26 2200 AC 10/28 IV 2048 Magnesium Sulfate 1 GM Q2H 10/29 0030 DC 10/29 Dextrose/Water 100 ML IV 10/29 0429 0230 Morphine Sulfate 2 MG ONCE ONE 10/28 2200 CAN IV 10/28 2201 Multivitamins 1 TAB DAILY 10/27 1000 AC 10/28 Therapeutic PO 0954 Non-Formulary 0 SEE ADMIN CRITERIA 10/27 2245 CAN Medication ANY Omeprazole 40 MG DAILY AC 10/27 0700 AC PO Pantoprazole Sodium 40 MG DAILY 10/29 1000 AC IV Potassium Chloride 10 MEQ Q1H 10/29 0815 UNVr IV 10/29 0916 Potassium Chloride 10 MEQ Q1H 10/29 0030 DC 10/29 IV 10/29 0131 0453 Pravastatin Sodium 20 MG 1700 10/27 1700 AC 10/28 PO 1614 Sodium Chloride 1,000 ML Q10H 10/29 0200 CAN IV 10/29 2159 Sodium Chloride 1,000 ML BOLUS ONE 10/29 0145 CAN IV 10/29 1144 Sodium Chloride 1,000 ML BOLUS ONE 10/28 2200 DC 10/28 IV 10/28 2359 2205 Thiamine HCl 100 MG DAILY 10/27 1000 AC 10/28 PO 0954 Antibiotics Antibiotic: Unasyn Day #: 1 IV/PO? IV If IV, Change to PO? No CXR Findings: SERVICE DATE: 10/28/17 EXAM TYPE: RAD - XRY-PORTABLE CHEST XRAY FINDINGS: Cardiac leads overlie the chest. The lungs are well expanded. There is diffusely increased opacity with a reticular appearance throughout the lungs. While this was present in the perihilar regions on the prior study, opacities now extend throughout the entirety of both lungs, densest at the lung bases. Probable small right pleural effusion. No pneumothorax. The cardiomediastinal silhouette is unchanged. IMPRESSION: Significantly increased diffuse opacities throughout both lungs when compared to the prior radiograph. This is most suggestive of worsening interstitial and alveolar edema, although multifocal infection remains possible. CT Scan Findings: SERVICE DATE: 10/28/17 EXAM TYPE: CAT - CTA CHEST-PULMONARY EMBOLISM FINDINGS: QUALITY OF STUDY/CONTRAST BOLUS: Suboptimal PULMONARY ARTERIES: The contrast density in the pulmonary arteries is suboptimal despite repeating the study. The aorta and left-sided circulation is higher in density than the pulmonary arterial system, consistent with late scan relative to the bolus. No central pulmonary embolus seen. Evaluation for lobar, segmental, or subsegmental pulmonary emboli is very limited. THORACIC AORTA: No aneurysm or dissection. LUNG: As noted on the chest x-ray earlier the same day, there are extensive acute abnormalities within the lungs new since 09/17/2017. There is extensive interlobular septal thickening and areas of groundglass opacity involving the lungs bilaterally. There was a similar appearance of subtle involvement within the anterior aspect of the left upper lobe previously but the vast majority of the findings are new. PLEURA: There are new bilateral pleural effusions with fluid extending into the right major fissure. MEDIASTINUM: Normal heart size. No pericardial effusion. No hilar or mediastinal lymphadenopathy. No evidence of septal bowing or right heart strain. CHEST WALL/AXILLA: No axillary or internal mammary lymphadenopathy. OSSEOUS STRUCTURES: Multiple healed rib fractures. No definite acute osseous abnormality. UPPER ABDOMEN: The liver has a lobular contour suggesting cirrhosis. There is a small amount of perihepatic ascites. No adrenal mass. No reflux of contrast into the hepatic veins to suggest elevated right heart pressures. IMPRESSION: The study is suboptimal for evaluation of pulmonary emboli despite repeating the bolus twice. No large central pulmonary embolus seen. There are extensive bilateral pulmonary abnormalities new since the prior chest CT 09/17/2017 with extensive interlobular septal thickening and areas of patchy groundglass opacity in the lungs bilaterally with a fairly geographic distribution. The greatest areas of involvement are in the bilateral upper lobes. Small bilateral pleural effusions are present as well. The appearance is nonspecific. Acute pulmonary edema is a leading consideration although infection or inflammation, for example a drug reaction, could be considered in the appropriate clinical setting. ECHO Findings: SERVICE DATE: 02/03/17- EXAM TYPE: CARD - ECHOCARDIOGRAM FINDINGS Left Ventricle Normal left ventricular size, wall thickness and systolic function with no obvious regional wall motion abnormalities. Normal left ventricular diastolic filling pattern for age. The ejection fraction is visually estimated at 60%. Right Ventricle The right ventricle is normal in size and function. Right Atrium The right atrium is normal in size. Left Atrium The left atrium is normal in size. The interatrial septum is intact. Mitral Valve The mitral valve is normal in structure and function. There is trace mitral regurgitation. Aortic Valve Structurally normal aortic valve without significant sclerosis or stenosis. There is no aortic regurgitation. Tricuspid Valve The tricuspid valve is normal in structure and function. There is mild to moderate tricuspid regurgitation. Pulmonary artery systolic pressure is moderately elevated to 53.4mmHg. Pulmonic Valve Structurally normal pulmonic valve. There is no pulmonic regurgitation. Pericardium Normal pericardium without effusion. No pleural effusion. Great Vessels Normal aortic root dimension. The aortic arch and great vessels are not well visualized. CONCLUSIONS 1. Normal EF of 60%. 2. Trace mitral regurgitation. 3. Mild to moderate tricuspid regurgitation. 4. Moderate pulmonary hypertension. Radiology Findings: SERVICE DATE: 10/26/17 EXAM TYPE: RAD - XRY-FEMUR, LEFT 2 VIEWS FINDINGS: There are postop changes related to above knee amputation. The remaining portion of the femur appears intact without definite bone destruction or erosion. The surrounding soft tissues are unremarkable. IMPRESSION: Postop changes related to above knee amputation. No x-ray signs signs of osteomyelitis. 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 He had left AKA stump infection in 06/2017 s/p I&D, debridement and washout x [address] Crystal who presented to the ED with c/o sensation in his left stump where he saw bone coming out of the wound. He was scheduled to be taken to the OR today, however, his hospital course was complicated by acute hypoxic respiratory failure thought to be multifactorial 2/2 requiring intubation for airway protection. Assessment and Plan: # Acute hypoxic respiratory failure - Multifactorial at this point 2/2 PNA (given leukocytosis, and significantly increased diffuse opacities throughout both lungs) vs pulmonary edema, given ? small right sided pleural effusion vs receiving execessive amounts of opiods ( 0.4 mg +0.5mg x1) - Continue Unasyn for now, given concern fpr aspiration PNA (patient si alcoholic, was lethargic) - He received 40mg of IV lasix yesterday afternoon, with no improvement in his repiratory status (doubt it is cardiac related and is most likley infectious in etiology). - F/U BC X2 (10/28/17), LRC(10/29/17), UC (10/28/17) - Try to maintain sats > 92%. - Maintain on aspiration precautions. - Will hold off with further diuresis for now. # Leukocytosis - Most likely 2/2 pneumonia. - Continue Unasyn 3000mg q6 - Continue to monitor. - F/U BCX2, UC, LRC # Hypotension - Most likely in the setting of aggresive diuresis (given patient is lasix naive ) versus sepsis. - Of note, Echo from last year shows EF of 60%. - Maintain MAP of >65mmHg - F/U repeat Echo - Trop and ECG - no evidence of ischemic changes. - ECG: sinues tachycardia, with PACs # PVD - Patient was scheduled to go to the OR today for a left AKA revision given concern for infection. - Hold off surgery for now. - Appreciate Vascular surgery recs #Normocytic anemia - 2/2 nutritional deficiencies? - Check TSH, FT4, folate, Vitamin B12, Folate. #Hypokalemia - 2/2 diuresis - Replete with IV KCL - Maintain k> 4.0 #Hypocalcemia - In the setting of low albumin - Corrected is WNL. # Alcohol dependence - On CIWA protocol. - Patient si curerntly inubated, will palce onAtivan 1mg Q1PRN of ranxiety - alcohol withdrawl. - Meanwhile will start on IV Thiamine. #Decubitus ulcers on buttocks - Stage three pressure ulcers on her buttocks bilaterally. - Wound care - Diet - NPO for now given he is intubated. - DVT prophylaxis - On IV Heparin - Code status - Full Code Problem List: 1. Amputated left leg 2. Anemia 3. Alcohol use 4. Hypotension 5. ETOH ABUSE Pain Ratin Tomorrow's Labs & Rationales: CBC- leukocytosis ICU - electrolyte derangements Plan DVT/Prophylaxis: pharmacological
--- NOTE | 2017-10-29 09:56 | RADIOLOGY REPORT ---
EXAMINATION: XR PORTABLE CHEST CLINICAL INFORMATION: Endotracheal tube placement COMPARISON: 10/29/2017 at 12:22 AM TECHNIQUE: Portable frontal view of the chest was obtained. FINDINGS: The left inferolateral chest is excluded from the [id number]. There is predominantly interstitial opacity throughout both lungs with small right pleural effusion, unchanged. No pneumothorax or pneumomediastinum. Endotracheal tube is approximately 5.3 cm above the tin. The enteric tube extends below the diaphragm and into the proximal stomach. Cardiac silhouette is normal in size. Atherosclerotic calcification of the aorta. No acute skeletal findings in the visualized portion of the chest. IMPRESSION: 1. Endotracheal tube and enteric tube are in satisfactory position. 2. The extensive pulmonary disease and small right pleural effusion have not appreciably changed compared to 10/29/2017 at 12:22 AM
[2017-10-29 15:25] LABS: PTT 118 SEC (25-37)
--- NOTE | 2017-10-29 18:33 | RADIOLOGY REPORT ---
EXAMINATION: XR PORTABLE CHEST CLINICAL INFORMATION: Interstitial edema possible pneumonia checking positioning of triple-lumen catheter COMPARISON: Multiple prior examinations most recent 10/29/2017 at 8:17 AM next TECHNIQUE: Portable AP upright view of the chest was obtained. FINDINGS: A left IJ central venous catheter is in place with the tip in the region of the right atrium. Endotracheal tube 4.5 cm above the tin. NG tube remains in place with distal tip outside the [id number] the exam. No pneumothorax Lungs and pleural spaces: Diffuse bilateral opacities unchanged. Calcification of the dorsal aorta. Cardiac silhouette and pulmonary vascularity unremarkable. IMPRESSION: Central venous catheter tip in region of right atrium. No pneumothorax. Diffuse bilateral airspace opacity unchanged
--- NOTE | 2017-10-29 18:50 | Proc Note Internal Medicine ---
Medicine Procedure Procedure Date: 10/29/17 Medical Procedure(s): central venous cath place Pre-Operative Diagnosis: Multilobar pneumonia with hypotension Post-Operative Diagnosis: Multilobar pneumonia with hypotension Estimated Blood Loss: less than 50ml Anesthesia: local monitored anesthesi Procedure Findings: Patient was intubated and sedated therefore informed consent was obtained from the patient's sister. First, a timeout was obtained, patient identifying data was checked and verified by members of the team and by myself; after the proper patient, procedure and procedural site was identified, we proceeded. The surgical area was cleaned with chlorhexidine scrub. Patient was draped in sterile fashion. Using ultrasound probe, the left internal jugular vein was isolated. 5 mL of local 1% lidocaine was used to numb the skin. Seldinger technique was used. Using a syringe the left Internal Jugular Vein was punctured under ultrasound guidance. Over the syringe, guidewire was placed as the syringe was removed. Skin dilator was placed over the guidewire. The dilator was then removed. The central venous catheter was inserted over the wire. All ports were flushed and aspirated and were free flowing/functional. The catheter was secured with silk sutures and tagaderm was placed. Blood loss was scant, and the patient handled the procedure well. A STAT chest x-ray obtained showed no lung injury and confirmed the left IJ catheter terminating near the right atrium.
--- NOTE | 2017-10-29 19:00 | ECHOCARDIOGRAM REPORT ---
MCKAY BECKMAN Age: 62 : 1955 Gender: M Exam Date: 10/28/2017 19:34 Exam Location: [place] Ht (in): 69 Wt (lb): 132 BSA: 1.70 BP: 120 / 86 Ordering Physician: Juana Seals MD Referring Physician: Sergio Partida MD, PhD Technologist: Jeana Redding [facility] Room Number: 229-01 Indications: RESPIRATORY FAILURE Rhythm: Sinus Technical Quality: fair FINDINGS Left Ventricle Normal left ventricular size, wall thickness and systolic function with no obvious regional wall motion abnormalities. Diastolic filling pattern is consistent with impaired LV relaxation. The ejection fraction is visually estimated at 60%. Right Ventricle The right ventricle is normal in size and function. Right Atrium The right atrium is normal in size. Left Atrium The left atrium is normal in size. The interatrial septum is intact. Mitral Valve The mitral valve is normal in structure and function. There is mild mitral regurgitation. Aortic Valve Structurally normal aortic valve without significant sclerosis or stenosis. There is no aortic regurgitation. Tricuspid Valve The tricuspid valve is normal in structure and function. There is no tricuspid regurgitation. Pulmonary artery systolic pressure is normal. Pulmonic Valve Structurally normal pulmonic valve. There is no pulmonic regurgitation. Pericardium Normal pericardium without effusion. No pleural effusion. Great Vessels Normal aortic root dimension. The aortic arch and great vessels are well seen and are normal. CONCLUSIONS 1. Normal EF of 60% with impaired LV relaxation. 2. Mild mitral regurgitation. Sergio Partida M.D. (Electronically Signed) Final Date: 29 October 2017 19:00 MEASUREMENTS (Male / Female) Normal Values 2D ECHO LV Diastolic Diameter PLAX 4.2 cm 4.2 - 5.9 / 3.9 - 5.3 cm LV Systolic Diameter PLAX 2.7 cm 2.1 - 4.0 cm LV Fractional Shortening PLAX 35.7 % 25 - 46 % LV Ejection Fraction 2D Teich 65.6 % IVS Diastolic Thickness 0.9 cm LVPW Diastolic Thickness 1.0 cm LV Relative Wall Thickness 0.5 RV Internal Dim ED PLAX 2.4 cm 1.9 - 3.8 cm LVOT Diameter 1.5 cm Aortic Root Diameter 2.9 cm LA Systolic Diameter LX 2.8 cm 3.0 - 4.0 / 2.7 - 3.8 cm LA Volume 24.0 cm 18 - 58 / 22 - 52 cm DOPPLER AV Peak Velocity 175.0 cm/s AV Peak Gradient 12.3 mmHg AV Mean Velocity 120.0 cm/s AV Mean Gradient 7.0 mmHg AV Velocity Time Integral 26.1 cm LVOT Peak Velocity 130.0 cm/s LVOT Peak Gradient 6.8 mmHg LVOT Mean Velocity 92.4 cm/s LVOT Mean Gradient 4.0 mmHg LVOT Velocity Time Integral 19.3 cm LVOT Stroke Volume 34.1 cm AV Area Cont Eq vti 1.3 cm AV Area Cont Eq pk 1.3 cm MV Peak Velocity 110.0 cm/s MV Peak Gradient 4.8 mmHg MV Mean Velocity 70.3 cm/s MV Mean Gradient 2.0 mmHg Mitral E Point Velocity 87.9 cm/s Mitral A Point Velocity 99.2 cm/s Mitral E to A Ratio 0.9 MV PHT Velocity 106.0 cm/s MV Deceleration [place] 565.0 cm/s MV Pressure Half Time 56.3 ms MV Area PHT 3.9 cm MV Deceleration Time 254.0 ms PV Peak Velocity 110.0 cm/s PV Peak Gradient 4.8 mmHg PV Mean Velocity 72.7 cm/s PV Mean Gradient 3.0 mmHg PV Velocity Time Integral 17.0 cm LV E' Lateral Velocity 16.0 cm/s Mitral E to LV E' Lateral Ratio 5.5 LV E' Septal Velocity 8.9 cm/s Mitral E to LV E' Septal Ratio 9.9
--- NOTE | 2017-10-29 20:46 | Cons- Cardiology ---
General Information and HPI Consulting Request Date of Consult: 10/29/17 Requested By: Dank Pérez MD History of Present Illness: Daniel is a 62 year old male with history of dyslipidemia, peripheral vascular disease and asthma. He also carries a history of DVT on chronic anticoagulation. He was sent to the emergency department by Dr. Solo for stump dehiscence. Originally the patient had a left above-knee amputation on 2016 and had two debridements on July 09 and July 12. A couple days ago he felt severe pain and noted a bone popping through. A surgical revision was planned but the patient developed shortness of breath with respiratory distress, borderline blood pressure, fever and increased WBC count. The patient has a low potassium of 3.1 with moderate anemia. To review this patient's prior history, in January of 2017 this patient was brought to the ER with coffee ground emesis and dark stools consistent with an upper GI bleed. In he ER he was found to be severely anemic and his troponin was noted to be mildly levated. At that time he had mistakenly taken both Coumadin and Xarelto. He had bilateral leg swelling that was refractory to diuretic therapy. At baseline, he denies any chest discomfort, shortness of breath, ligtheadedness or palpitations. Cardiac workup included an echocardiogram showing a normal EF of 60% with trace MR, mild to moderate TR and moderate pulmonary hypertension. To review this patient's priorhistory, he had a right DVT in 2014 anbd is status post thrombectomy with stent. He is now on chronic anticoagulation with Eliquis. The patient has a history of alcohol abuse and drinks about 2-3 beers on a daily basis and was hospitatlied at [place] in 2013 for alchol abuse and withdrawal. Allergies/Medications Allergies: Coded Allergies: codeine (Mild, SHAKES 07/09/17) Home Med List: Albuterol Sulfate (Ventolin Hfa) 90 MCG HFA.AER.AD 2 PUF INH Q4-6 PRN PRN SHORTNESS OF BREATH Apixaban (Eliquis) 5 MG TABLET 1 TAB PO BID blood clots Aspirin (Aspirin*) 81 MG TAB.CHEW 81 MG PO DAILY heart health Gabapentin (Neurontin) 300 MG CAPSULE 1 CAP PO TID NERVE PAIN (Reported) Mometasone/Formoterol (Dulera 200 Mcg/5 Mcg Inhaler) 200 MCG-5 MCG/ACTUATION HFA.AER.AD 2 PUF INH BID ASTHMA (Reported) Multiple Vitamin (Multivitamins) 1 EACH TABLET 1 TAB PO DAILY SUPPLEMENT ( Reported) Omeprazole 20 MG CAPSULE.DR 40 MG PO DAILY AC GI BLEED Pravastatin Sodium 20 MG TABLET 1 TAB PO DAILY HLD (Reported) Ranitidine HCl 300 MG TABLET 1 TAB PO QPM GI (Reported) Review of Systems Review of Systems: A revbiew of systems is remarkable for alcohol abuse. Past History Travel History Traveled to [place] past 21 day No Medical History Blood Transfusion Hx: Yes Neurological: peripheral neuropathy EENT: NONE Cardiovascular: hyperlipidemia, myocardial infarction, PVD Respiratory: asthma Gastrointestinal: lower GI bleed Hepatic: NONE Renal: NONE Musculoskeletal: NONE Psychiatric: alcohol dependence Endocrine: NONE Blood Disorders: DVT Cancer(s): NONE ENROLLED AGENT/Reproductive: NONE Surgical History Surgical History: fasciotomy, thrombectomy left above the knee amputation (06/13) Family History Relations & Conditions If Any: MOTHER (HEART CONDITION). , Age 62. FATHER (HEART CONDITION). , Age 60+. Psychosocial History Where Do You Live? Home Services at Home: Nursing Smoking Status: Current Everyday Smoker ETOH Use: denies use Illicit Drug Use: denies illicit drug use Functional Ability ADLs Independent: dressing, eating, toileting, bathing. Exam & Diagnostic Data Vital Signs and I&O Vital Signs Date Time Temp Pulse Resp B/P B/P Pulse O2 O2 Flow FiO2 Mean Ox Delivery Rate 10/29 1999 97.6 94 24 94/60 10/29 2000 94 Ventilator 60% 10/29 1905 60 10/29 1615 60 10/29 1600 94 Ventilator 60% 10/29 1600 97.6 82 20 95/40 94 Ventilator 60% / 1435 60 10/29 1200 98 Ventilator 60% 10/29 0914 100 10/29 0800 80 BIPAP 100% 10/29 0800 98.0 100 36 135/74 80 BIPAP 100% 10/29 0651 118 87 10/29 0640 77 Nasal 90% Cannula 10/29 0600 108 26 112/54 10/29 0400 7.6 92 22 102/68 10/29 0400 95 Nasal 75% Cannula 10/29 0222 93 Nasal 75% Cannula 10/29 0200 102 24 10/29 0000 97.6 98 26 100/50 10/29 0000 94 Nasal 75% Cannula 10/29 0000 97.6 98 26 100/50 94 Nasal 75% Cannula 10/28 2205 101.5 10/28 2130 120 22 80/50 Intake & Output 10/29 1600 10/29 0800 10/29 0000 10/28 1600 10/28 0800 10/28 0000 Intake Total 1258 684 250 600 60 200 Output Total 1370 355 800 450 Balance -112 329 250 -200 60 -250 Intake, IV 1138 684 250 10 200 Intake, Oral 0 600 50 Intake, Tube 120 Irrigant Output, Urine 1370 355 800 450 Patient 141 lb Weight Physical Exam: General: WD/WN male in NAD HEENT: NC/AT, PERRL, EOMI Neck: no JVD, no carotic bruit Heart> RRR with ectopy Lungs: clear bilaterally ABdomen: soft, NT, +ve bowel sounds Extremities: no edems, Left AKA Assessment/Plan Assessment/Plan * It is unclear if this patient has superimposed pulmonary edema but he does have a highly elevated WBC count and infiltrates on his chest X-ray. This patient has a borderline blood pressure and may not tolerate diuresis but a trial of Lasix with careful monitoring of blood pressure is reasonable to try. I would treat with antibiotics for pneumonia. * replete potassium * Continue BIPAP Consult Acknowledgment - Thank you for your consult request.
[2017-10-30] VITALS (8 sets, daily range): BP systolic 83–103; BP diastolic 50–66
[2017-10-30 01:14] LABS: PTT 82 SEC (25-37)
[2017-10-30 05:25] LABS: ABSOLUTE BASOPHIL COUNT 0 /CUMM (0.0-0.2); ABSOLUTE EOSINOPHIL COUNT 0 /CUMM (0.0-0.7); ABSOLUTE GRANULOCYTE CT 10.8 /CUMM (1.4-6.5); ABSOLUTE LYMPH COUNT 1.3 /CUMM (1.2-3.4); ABSOLUTE MONOCYTE COUNT 0.5 /CUMM (0.10-0.60); BASOPHIL % 0 % (0.0-2.0); EOSINOPHIL % 0.3 % (0-5); GRANULOCYTE % 85.1 % (42.2-75.2); HEMATOCRIT 25.8 % (42-52); MEAN CORPUSCULAR HGB 27.6 PG (27.0-31.0); MEAN CORPUSCULAR HGB CONC 31.2 G/DL (33.0-37.0); MEAN CORPUSCULAR VOLUME 88.4 FL (80.0-94.0); MEAN PLATELET VOLUME 8.1 FL (7.4-10.4); PLATELET COUNT 221 /CUMM (130-400); RBC DISTRIBUTION WIDTH 33.6 % (11.5-14.5); RED BLOOD CELL CT 2.92 /CUMM (4.70-6.10); WHITE BLOOD CELL COUNT 12.7 /CUMM (4.8-10.8)
--- NOTE | 2017-10-30 08:31 | PN- Resident CRCU ---
Padmini Gonzalez 10/30/17 0831: Subjective HPI/CRCU Issues: Acute hypoxic respiratory failure 2/2 PNA vs pulmonary edema L wound dehisence of L AKA Hx of DVT and PVD Alcohol dependence History of CAD 24 Hour Events: Patient seen and examined at bedside. He remains intubated, but is opening eyes on verbal commands. ROS much limited. Vitals over past 24 hrs NSR:82-94, RR: 26-31, BP: 81-106/50-65, I's: 2257, O: 1725mLS, A/F. Labs reviewed, his WBC is trending down 21.6-->12.7, H&H: 8.1/25.8. Serum chemisteries K: 3.7, and Ph: 1.8, Ma.7. Of note his echo reveals impaired LV relaxation. Objective Vital Signs & I&O Last 8 Hrs of Vitals and I&O: Intake & Output 10/30 1600 Intake Total Output Total Balance Patient 146 lb Weight Weight Bed scale Measurement Method Exam General Appearance: comfortable, intubated, opens his eyes on verbal commands Head: atraumatic Neck: supple Respiratory: b/l ronchi - improved since yesterday Cardiovascular: regular rate/rhythm Gastrointestinal: normal bowel sounds, soft Extremities: Left above knee amputation; has 1+ edema on his RLE. Cranial Nerves: PERRL Skin: bruises on his flank, and decubitis ulcrs on his buttocks bilaterally. Central Line Site: [facility] Date In: 10/29/17 Need for Catheter: pressors Nutrition Nutrition: tube feeding Current Medications: Current Medications Sig/Lillie Start time Last Medication Dose Route Stop Time Status Admin Acetaminophen 650 MG Q8P PRN 10/26 2115 AC PO Albuterol Sulfate 3 ML Q4P PRN 10/28 1430 AC 10/29 INH 1620 Ampicillin Sodium/ 3,000 MG Q6 10/28 2359 AC 10/30 Sulbactam Sodium IV 0527 Sodium Chloride 100 ML Famotidine 40 MG QPM 10/27 2200 AC 10/27 PO 220 Folic Acid 1 MG DAILY 10/27 1000 AC 10/30 PO 0832 Gabapentin 300 MG TID 10/26 2200 AC 10/30 PO 0832 Heparin Sodium 25,000 UNIT Q24H 10/28 1445 AC 10/29 (Porcine) IV 1952 Sodium Chloride 500 ML Hydromorphone HCl 0.4 MG Q6P PRN 10/27 0415 AC 10/29 IV 0852 Lorazepam 2 MG ONE ONE 10/29 1800 DC 10/29 IV 10/29 1801 1757 Lorazepam 2 MG ONE ONE 10/29 1800 DC 10/29 IV 10/29 1801 1757 Lorazepam 1 MG Q1 NEEDED PRN 10/29 0830 AC 10/30 IV 1104 Lorazepam 0 Q1P PRN 10/26 2200 AC 10/28 IV 2048 Magnesium Sulfate 1 GM Q2H 10/30 1045 AC 10/30 Dextrose/Water 100 ML IV 10/30 1444 1207 Multivitamins 15 ML DAILY 10/29 1000 AC 10/30 PO 0831 Pantoprazole Sodium 40 MG DAILY 10/29 1000 AC 10/30 IV 0832 Phosphate 250 MG PC AND AT BEDTIME 10/30 1300 CAN PO Potassium Chloride 20 MEQ Q1H 10/30 0100 DC 10/30 IV 10/30 0201 0133 Potassium Chloride 10 MEQ Q1H 10/29 1800 DC 10/29 IV 10/29 1901 2035 Potassium Phosphate 15 mMol ONE ONE 10/30 1045 AC Sodium Chloride 250 ML IV 10/30 1449 Pravastatin Sodium 20 MG 1700 10/27 1700 AC 10/29 PO 1759 Sodium Chloride 1,000 ML BOLUS ONE 10/29 1115 DC 10/29 IV 10/29 1314 1310 Thiamine HCl 100 MG DAILY 10/30 1000 AC 10/30 Sodium Chloride 50 ML IV 1054 Thiamine HCl 500 MG ONCE ONE 10/29 1200 DC 10/29 Sodium Chloride 250 ML IV 10/29 1259 1530 Thiamine HCl 100 MG DAILY 10/27 1000 AC 10/30 PO 0832 Antibiotics Antibiotic: Unasyn Day #: 2 IV/PO? IV If IV, Change to PO? No Results Results: LRC (10/29/17): Yeast BC X2(10/28/17): NGTD BC (10/26/17) X1: NGTD UC (10/29/17): NGTD CXR Findings: FINDINGS: The endotracheal tube is 4.4 cm above the tin. The left IJ CVL reaches the high right atrium. A feeding tube reaches the stomach. Diffuse interstitial and airspace opacity is unchanged. There are small bilateral pleural effusions. Heart size is normal. IMPRESSION: 1. Endotracheal tube 4.4 cm above the tin. 2. Stable appearance of severe diffuse interstitial and airspace opacity. 3. Small bilateral pleural effusions. ECHO Findings: Exam Date: 10/28/2017 FINDINGS Left Ventricle Normal left ventricular size, wall thickness and systolic function with no obvious regional wall motion abnormalities. Diastolic filling pattern is consistent with impaired LV relaxation. The ejection fraction is visually estimated at 60%. Right Ventricle The right ventricle is normal in size and function. Right Atrium The right atrium is normal in size. Left Atrium The left atrium is normal in size. The interatrial septum is intact. Mitral Valve The mitral valve is normal in structure and function. There is mild mitral regurgitation. Aortic Valve Structurally normal aortic valve without significant sclerosis or stenosis. There is no aortic regurgitation. Tricuspid Valve The tricuspid valve is normal in structure and function. There is no tricuspid regurgitation. Pulmonary artery systolic pressure is normal. Pulmonic Valve Structurally normal pulmonic valve. There is no pulmonic regurgitation. Pericardium Normal pericardium without effusion. No pleural effusion. Great Vessels Normal aortic root dimension. The aortic arch and great vessels are well seen and are normal. CONCLUSIONS 1. Normal EF of 60% with impaired LV relaxation. 2. Mild mitral regurgitation. 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 He had left AKA stump infection in 06/2017 s/p I&D, debridement and washout x [address] Crystal who presented to the ED on 10/26/17 with c/o sensation in his left stump where he saw bone coming out of the wound. He was scheduled to be taken to the OR on Wednesday10/29/17, however, his hospital course was complicated by acute hypoxic respiratory failure thought to be multifactorial 2/2 requiring intubation for airway protection. Assessment and Plan: # Acute hypoxic respiratory failure - Multifactorial at this point 2/2 PNA (given leukocytosis - ? viral - ? bacterial, and significantly increased diffuse opacities throughout both lungs) vs pulmonary edema, given ? small right sided pleural effusion - Continue Unasyn for now, given concern for aspiration PNA (patient is alcoholic, was lethargic) - He received 3 rounds of 20mg of IV lasix, with no improvement in his repiratory status (doubt it is cardiac related and is most likley infectious in etiology). - Will check urinary antigen for legionella, strep pneumo, and r/o rapid flu - F/U urine tox screen to ensure he didnt sniff cocaine - F/U BC X2 (10/28/17), LRC(10/29/17), UC (10/28/17) - Try to maintain sats > 92%. - Maintain on aspiration precautions. - Ativan 1mg q1 PRN for anxiety and agitation - Will hold off with further diuresis for now given low blood pressure. # Leukocytosis - Most likely 2/2 pneumonia vs cellulitis at site of wound dehisicence. - Continue Unasyn 3000mg q6 for PNA. Will broaden coverage if his respiratory or clinical status continues to detriorate - Continue to monitor. - F/U BCX2, UC, LRC # Hypotension - Stable. - Most likely in the setting of aggresive diuresis (given patient is lasix naive ) versus sepsis. - Patient has a RIJ in place, if need will satrt on Levophed to maintain blood pressure. - Maintain MAP of >65mmHg - F/U repeat Echo shows normal EF of 60% with impaired LV relaxation. Mild mitral regurgitation. - Trop and ECG - no evidence of ischemic changes. - ECG: sinues tachycardia, with PACs # PVD - Patient was scheduled to go to the OR yesterday for a left AKA revision given concern for infection. - Hold off surgery for now. - Appreciate Vascular surgery recs #Normocytic anemia - 2/2 nutritional deficiencies? - TSH, FT4 WNL folate and Vitamin B12, WNL. - iron studies cw anemia of chronic disease? #Hypokalemia - Resolved - Most likely 2/2 diuresis - Maintain k> 4.0 #Hypocalcemia - In the setting of low albumin - Corrected is WNL. # Alcohol dependence - On [facility] protocol. - Patient is curerntly inubated, will palce onAtivan 1mg Q1PRN of ranxiety - alcohol withdrawl. - Meanwhile continue IV Thiamine. #Decubitus ulcers on buttocks - Stage three pressure ulcers on her buttocks bilaterally. - Wound care - Diet - -Nutrition recs for tube feeds appreciated. - Patient will be started on tube feeds tonight. - DVT prophylaxis - On IV Heparin - Code status - Full Code Problem List: 1. Hypotension 2. Anemia 3. Status post above knee amputation of left lower extremity 4. Leukocytosis 5. Acute respiratory distress Pain Ratin Tomorrow's Labs & Rationales: - CBC- leukocytosis - ICU- electrolytes Plan DVT/Prophylaxis: pharmacological Dagoberto Flores MD 10/30/17 1033: Attending MD Review Statement Attending Sign Off Attending Cosign Statement: I have: examined this patient, reviewed avalbl EMR data, personally reviewd images, discussd w/resident/PA/MILL CONTROLLER, discussed mgmt plan w/laci, discussed mgmt plan w/CM, discussed mgmt plan w/pt, agreed w/resident/PA/MILL CONTROLLER, amended to note. Other Findings: IDagoberto M.D. have examined this patient, reviewed available EMR data, personally reviewed images, discussed with resident/PA/MILL CONTROLLER, discussed management plan with housestaff and nursing staff, discussed managment plan all of healthcare providers, discussed management plan with patient and/or family, agreed with resident/PA/MILL CONTROLLER. The past history and parts of the chart have been autopopulated. Impression 62 year old man * acute hypoxemic respiratory failure - multifactorial - fluid overload vs infectious process * consideration for aspiration pneumonia - wbc improved on unasyn * anemia can be component of iron deficiency and alcoholism * hypophosphatemia, hypokalemia, hypomagnesemia * etoh dependence * hx of dvt/pe on eliquis at home - heparin gtt now Plan Respiratory/ID -cont mechanical ventilation -diffuse interstitial opacities -small effusions -cont unasyn for now, can broaden if change in clinical status -f/u all cx, check legionella, strep ag CVS/metabolic -monitor hemodynamics -borderline hypotension -replete electrolytes -monitor lfts, creatinine -heparin gtt -f/u cardiology Alimentary -begin tube feeds, dietary/nutrition consult Neuro -CIWA protocol -mvi, electrolyte repletion -folate, thiamine -utox DVT prophylaxis at all times TTS 40 min
--- NOTE | 2017-10-30 09:50 | RADIOLOGY REPORT ---
EXAMINATION: XR PORTABLE CHEST CLINICAL INFORMATION: Status post intubation. Respiratory failure. COMPARISON: Recent priors. TECHNIQUE: Portable frontal view of the chest was obtained. FINDINGS: The endotracheal tube is 4.4 cm above the tin. The left IJ CVL reaches the high right atrium. A feeding tube reaches the stomach. Diffuse interstitial and airspace opacity is unchanged. There are small bilateral pleural effusions. Heart size is normal. IMPRESSION: 1. Endotracheal tube 4.4 cm above the tin. 2. Stable appearance of severe diffuse interstitial and airspace opacity. 3. Small bilateral pleural effusions.
[2017-10-30 15:04] LABS: PTT 70 SEC (25-37)
--- NOTE | 2017-10-30 15:43 | PN- Cardiology ---
Subjective Subjective: * Sedated and not responsive to verbal stimuli. * WBC count is coming down Objective Vital Signs and I&Os Vital Signs Date Time Temp Pulse Resp B/P B/P Pulse O2 O2 Flow FiO2 Mean Ox Delivery Rate 02 1230 45 02/ 0850 50 02/ 0800 99 Ventilator 50% 10/30 0800 97.9 8 35 92/54 99 Ventilator 50% 02/ 0632 50 / 0600 97.9 96 32 83/60 02/ 0400 97.5 96 32 95/65 02/03 0400 97 Ventilator 50% 02/ 0344 50 02/ 0200 97.5 85 33 85/56 02/03 0100 50 02/03 0000 97.5 86 26 90/52 02/03 0000 97.5 86 26 90/52 98 Ventilator 50% 02/ 0000 98 Ventilator 50% 10/29 2220 50 10/29 2200 98.1 84 26 85/51 10/29 1999 97.6 94 24 94/60 10/29 2000 94 Ventilator 60% 10/29 1905 60 10/29 1615 60 10/29 1600 94 Ventilator 60% 10/29 1600 97.6 82 20 95/40 94 Ventilator 60% Intake & Output 10/30 1600 10/30 08/ 0000 10/29 1600 10/29 0800 10/29 0000 Intake Total 652 943 510 8098 684 250 Output Total 210 340 913 2475 355 Balance 442 401 204 -112 329 250 Intake, IV 552 767 496 3690 684 250 Intake, Oral 0 Intake, Other 100 Intake, Tube 100 120 Irrigant Output, Urine 210 716 811 2288 355 Patient 146 lb 141 lb Weight Weight Bed scale Measurement Method Physical Exam: General: WD/WN male in NAD Neck: no JVD, no carotic bruit Heart: RRR with ectopy Lungs: clear bilaterally ABdomen: soft, NT, +ve bowel sounds Extremities: no edema, Left AKA Assessment/Plan Assessment/Plan * It is unclear if this patient has superimposed pulmonary edema but he does have a highly elevated WBC count and infiltrates on his chest X-ray. The increased WBC count is coming down on antibiotic therapy. This patient to demonstrate a borderline blood pressure and may not tolerate diuresis but a trial of Lasix with careful monitoring of blood pressure is reasonable to try. * Continue BIPAP Continue telemetry? Yes
[2017-10-31] VITALS (7 sets, daily range): BP systolic 94–110; BP diastolic 56–64
[2017-10-31 02:33] LABS: ABSOLUTE BASOPHIL COUNT 0 /CUMM (0.0-0.2); ABSOLUTE EOSINOPHIL COUNT 0.2 /CUMM (0.0-0.7); ABSOLUTE GRANULOCYTE CT 8.9 /CUMM (1.4-6.5); ABSOLUTE LYMPH COUNT 1.7 /CUMM (1.2-3.4); ABSOLUTE MONOCYTE COUNT 0.4 /CUMM (0.10-0.60); BASOPHIL % 0.2 % (0.0-2.0); EOSINOPHIL % 1.9 % (0-5); HEMATOCRIT 24.2 % (42-52); MEAN CORPUSCULAR HGB 27.6 PG (27.0-31.0); MEAN CORPUSCULAR HGB CONC 31.5 G/DL (33.0-37.0); MEAN CORPUSCULAR VOLUME 87.7 FL (80.0-94.0); MEAN PLATELET VOLUME 7.8 FL (7.4-10.4); PLATELET COUNT 238 /CUMM (130-400); RED BLOOD CELL CT 2.75 /CUMM (4.70-6.10); WHITE BLOOD CELL COUNT 11.3 /CUMM (4.8-10.8)
[2017-10-31 02:56] LABS: PTT 54 SEC (25-37)
--- NOTE | 2017-10-31 06:49 | RADIOLOGY REPORT ---
EXAMINATION: XR PORTABLE CHEST CLINICAL INFORMATION: Intubation COMPARISON: Chest x-ray October 30, 2017 TECHNIQUE: Portable frontal view of the chest was obtained. 6:02 AM FINDINGS: Endotracheal tube catheter about 6.5 cm above tin. Nasogastric tube passes below the diaphragm with the catheter tip in the proximal stomach. Left IJ catheter tip at caval atrial junction. No pneumothorax. There is persistent diffuse bilateral interstitial airspace opacities. There is mild improvement though of the aeration in the upper lobes bilateral. IMPRESSION: 1. Endotracheal tube catheter 6.5 cm above tin. 2. Nasogastric tube in stomach. 3. Left IJ catheter tip at cavoatrial junction. 4. Persistent bilateral interstitial and alveolar airspace disease. There is some improvement in the aeration however in the upper lobes bilateral.
--- NOTE | 2017-10-31 08:59 | PN- Resident CRCU ---
Kimberley Mederos 10/31/17 0858: Subjective HPI/CRCU Issues: Acute hypoxic respiratory failure 2/2 PNA vs pulmonary edema L wound dehisence of L AKA Hx of DVT and PVD Alcohol dependence History of CAD 24 Hour Events: Patient seen and examined at bedside. He remains intubated, but is opening eyes on verbal commands. ROS much limited. Vitals are stable temperature 90.8, pulse 102, respiratory rate 18 blood pressure 116/67. I's: 2257, O: 1720mLS the last 24 hours No overnight event Labs reviewed, his WBC is trending down 21.6--> 11.6 H&H: 7.6/24.2. Serum chemisteries K: 3.3, and Ph: 1.9, Ma. Of note his echo reveals impaired LV relaxation. Objective Vital Signs & I&O Last 8 Hrs of Vitals and I&O: Vital Signs Date Time Temp Pulse Resp B/P B/P Pulse O2 O2 Flow FiO2 Mean Ox Delivery Rate / 1200 95 Ventilator 45% 02/04 0909 45 02/04 0800 96 Ventilator 45% 02/04 0800 98.0 98 28 101/56 96 Ventilator 45% 02/04 0403 45 02/04 0400 97.8 90 27 110/61 02/04 0400 98 Ventilator 45% 02/04 0200 97.8 94 26 94/60 02/04 0120 45 02/04 0000 97.8 94 28 102/64 02/04 0000 96 Ventilator 45% 02/04 0000 97.8 94 28 102/64 96 Ventilator 45% 02/03 2218 45 02/03 2200 98.1 92 28 97/62 02/03 1999 98.1 92 24 103/66 02/03 1999 98 Ventilator 45% 02/03 1904 45 02/03 1624 45 02/03 1600 96 Ventilator 45% 02/03 1600 97.5 96 28 102/50 95 Ventilator 45% Intake & Output 02/04 1600 02/04 0800 02/04 0000 Intake Total 762 689 Output Total 300 150 Balance 462 539 Intake, IV 377 394 Intake, Tube 150 105 Feeding Intake, Tube 235 190 Irrigant Output, 150 Emesis Output, Urine 150 150 Exam General Appearance: alert Ears, Nose, Throat: normal pharynx Neck: normal inspection, supple Respiratory: normal breath sounds Cardiovascular: regular rate/rhythm, edema, gallop Gastrointestinal: normal bowel sounds, soft Current Medications: Current Medications Sig/Lillie Start time Last Medication Dose Route Stop Time Status Admin Acetaminophen 650 MG Q8P PRN 10/26 2115 AC PO Albuterol Sulfate 3 ML Q4P PRN 10/28 1430 AC 10/29 INH 1620 Ampicillin Sodium/ 3,000 MG Q6 10/28 2359 AC 10/31 Sulbactam Sodium IV 1703 Sodium Chloride 100 ML Famotidine 40 MG QPM 10/27 2200 AC 10/27 PO 2209 Folic Acid 1 MG DAILY 10/27 1000 AC 10/31 PO 0912 Furosemide 40 MG ONCE ONE 10/31 1345 DC 10/31 IV 10/31 1346 1401 Gabapentin 300 MG TID 10/26 2200 AC 10/31 PO 1614 Heparin Sodium 25,000 UNIT Q24H 10/28 1445 AC 10/30 (Porcine) IV 1715 Sodium Chloride 500 ML Hydromorphone HCl 0.4 MG Q6P PRN 10/27 0415 AC 10/31 IV 1144 Lorazepam 1 MG Q1 NEEDED PRN 10/29 0830 AC 10/31 IV 0912 Lorazepam 0 Q1P PRN 10/26 2200 AC 10/31 IV 1123 Multivitamins 15 ML DAILY 10/29 1000 AC 10/31 PO 0913 Pantoprazole Sodium 40 MG DAILY 10/29 1000 AC 10/31 IV 0912 Potassium Chloride 20 MEQ Q1H 10/31 0615 DC 10/31 IV / 0716 0759 Potassium Phosphate 15 mMol ONE ONE 10/31 1400 DC 10/31 Sodium Chloride 250 ML IV 10/31 1804 1659 Potassium Phosphate 15 mMol ONE ONE 10/31 0915 DC 10/31 Sodium Chloride 250 ML IV 10/31 1319 1252 Pravastatin Sodium 20 MG 1700 10/27 1700 AC 10/31 PO 1614 Thiamine HCl 100 MG DAILY 10/30 1000 AC 10/31 Sodium Chloride 50 ML IV 0913 Thiamine HCl 100 MG DAILY 10/27 1000 AC 10/31 PO 0912 Impression/Plan Impression/Problem List Impression: n summary this is a 62-year-old male with PMH of alcohol abuse, asthma and recurrent DVT on Eliquis, h/o UGI bleed, GERD, neuropathy, NSTEMI, left lower extremity ischemia, requiring a left popliteal and SFA thrombectomy as well as a compartment fasciotomy, with eventual recovery and discharge, but with recurrent ischemia to the left leg requiring a left AKA on 05/28/2017. He had left AKA stump infection in 06/2017 s/p I&D, debridement and washout x [address] Crystal who presented to the ED on 10/26/17 with c/o sensation in his left stump where he saw bone coming out of the wound. He was scheduled to be taken to the OR on Wednesday10/29/17, however, his hospital course was complicated by acute hypoxic respiratory failure thought to be multifactorial 2/2 requiring intubation for airway protection. Assessment and Plan: # Acute hypoxic respiratory failure - Multifactorial at this point 2/2 PNA (given leukocytosis - ? viral - ? bacterial, and significantly increased diffuse opacities throughout both lungs) vs pulmonary edema, given ? small right sided pleural effusion - Continue Unasyn for now, given concern for aspiration PNA (patient is alcoholic, was lethargic) - He received 3 rounds of 20mg of IV lasix, with no improvement in his repiratory status (doubt it is cardiac related and is most likley infectious in etiology). CXR consistent with pulmonary edema, give one dose of IV Lasix 40 mg as per cardiology recommendations - Will check urinary antigen for legionella, strep pneumo, and r/o rapid flu - F/U urine tox screen to ensure he didnt sniff cocaine - F/U BC X2 (10/28/17), LRC(10/29/17), UC (10/28/17) - Try to maintain sats > 92%. - Maintain on aspiration precautions. - Ativan 1mg q1 PRN for anxiety and agitation - Will hold off with further diuresis for now given low blood pressure. # Leukocytosis - Most likely 2/2 pneumonia vs cellulitis at site of wound dehisicence. - Continue Unasyn 3000mg q6 for PNA. Will broaden coverage if his respiratory or clinical status continues to detriorate - Continue to monitor. - F/U BCX2, UC, LRC # Hypotension - Stable. - Most likely in the setting of aggresive diuresis (given patient is lasix naive ) versus sepsis. - Patient has a RIJ in place, if need will satrt on Levophed to maintain blood pressure. - Maintain MAP of >65mmHg - F/U repeat Echo shows normal EF of 60% with impaired LV relaxation. Mild mitral regurgitation. - Trop and ECG - no evidence of ischemic changes. - ECG: sinues tachycardia, with PACs # PVD - Patient was scheduled to go to the OR yesterday for a left AKA revision given concern for infection. - Hold off surgery for now. - Appreciate Vascular surgery recs #Normocytic anemia - 2/2 nutritional deficiencies? - TSH, FT4 WNL folate and Vitamin B12, WNL. - iron studies cw anemia of chronic disease? #Hypokalemia - 3.3 - Most likely 2/2 diuresis - Maintain k> 4.0 #Hypocalcemia - In the setting of low albumin - Corrected is WNL. # Alcohol dependence - On CIOK protocol. - Patient is curerntly inubated, will palce onAtivan 1mg Q1PRN of ranxiety - alcohol withdrawl. - Meanwhile continue IV Thiamine. #Decubitus ulcers on buttocks - Stage three pressure ulcers on her buttocks bilaterally. - Wound care - Diet - -Nutrition recs for tube feeds appreciated. - Patient will be started on tube feeds tonight. - DVT prophylaxis - On IV Heparin - Code status FC Problem List: 1. Hypotension 2. Alcohol use Pain Ratin Tomorrow's Labs & Rationales: CBC- leukocytosis - ICU- electrolytes Plan DVT/Prophylaxis: pharmacological Dagoberto Flores MD 10/31/17 1008: Attending MD Review Statement Attending Sign Off Attending Cosign Statement: I have: examined this patient, reviewed avalbl EMR data, personally reviewd images, discussd w/resident/PA/ROUTER OPERATOR PIN, discussed mgmt plan w/laci, discussed mgmt plan w/CM, discussed mgmt plan w/pt, agreed w/resident/PA/ROUTER OPERATOR PIN, amended to note. Other Findings: IDagoberto M.D. have examined this patient, reviewed available EMR data, personally reviewed images, discussed with resident/PA/ROUTER OPERATOR PIN, discussed management plan with housestaff and nursing staff, discussed managment plan all of healthcare providers, discussed management plan with patient and/or family, agreed with resident/PA/ROUTER OPERATOR PIN. The past history and parts of the chart have been autopopulated. Impression 62 year old man * acute hypoxemic respiratory failure - multifactorial - fluid overload vs infectious process * consideration for aspiration pneumonia - wbc improved on unasyn * anemia can be component of iron deficiency and alcoholism * hypophosphatemia, hypokalemia, hypomagnesemia * etoh dependence * hx of dvt/pe on eliquis at home - heparin gtt now Plan Respiratory/ID -cont mechanical ventilation -diffuse interstitial opacities -small effusions -cont unasyn for now, improved cxr -f/u all cx, check legionella, strep ag CVS/metabolic -monitor hemodynamics -borderline hypotension -replete electrolytes -monitor lfts, creatinine -heparin gtt -f/u cardiology Alimentary -tube feeds, dietary/nutrition consult Neuro -CIWA protocol -mvi, electrolyte repletion -folate, thiamine DVT prophylaxis at all times TTS 35 min
[2017-10-31 10:02] LABS: PTT 56 SEC (25-37)
--- NOTE | 2017-10-31 13:28 | PN- Cardiology ---
Subjective Subjective: * Patient is not responsive to verbal stimuli. Intubated and sedated. * potassium 3.3 * calcium is low * Mildly increased WBC count and persistent anemia Objective Vital Signs and I&Os Vital Signs Date Time Temp Pulse Resp B/P B/P Pulse O2 O2 Flow FiO2 Mean Ox Delivery Rate / 1200 95 Ventilator 45% 02/ 0909 45 02/ 0800 96 Ventilator 45% / 0800 98.0 98 28 101/56 96 Ventilator 45% 02/04 0403 45 02/ 0400 97.8 90 27 110/61 02/04 0400 98 Ventilator 45% 02/04 0200 97.8 94 26 94/60 02/04 0120 45 02/04 0000 97.8 94 28 102/64 02/04 0000 96 Ventilator 45% 02/ 0000 97.8 94 28 102/64 96 Ventilator 45% 02/03 2218 45 02/ 2200 98.1 92 28 97/62 02/ 2000 98.1 92 24 103/66 /1999 98 Ventilator 45% / 1904 45 02/03 1624 45 02/03 1600 96 Ventilator 45% 02/03 1600 97.5 96 28 102/50 95 Ventilator 45% Intake & Output / 1600 / 0800 02/04 0000 02/03 1600 02/ 0800 02/03 0000 Intake Total 762 689 652 601 404 Output Total 300 150 210 200 200 Balance 462 539 442 401 204 Intake, IV 377 394 552 601 304 Intake, Other 100 Intake, Tube 150 105 Feeding Intake, Tube 235 190 100 Irrigant Output, 150 Emesis Output, Urine 150 150 210 200 200 Patient 146 lb Weight Weight Bed scale Measurement Method Physical Exam: General: WD/WN male in NAD Neck: no JVD, no carotic bruit Heart: RRR with ectopy Lungs: clear bilaterally ABdomen: soft, NT, +ve bowel sounds Extremities: no edema, Left AKA Assessment/Plan Assessment/Plan * This patient continues to have an X-ray that is consistent with pulmonary edema. His increased WBC count is coming down on antibiotic therapy. This patient to demonstrate a borderline blood pressure but a trial of Lasix 40mg IV is reasonable. * Replete potassium and calcium if corrected level is low. Continue telemetry? Yes
[2017-10-31 18:23] LABS: PTT > 120 SEC (25-37)
[2017-11-01] VITALS (11 sets, daily range): BP systolic 90–136; BP diastolic 55–70
[2017-11-01 00:50] LABS: PTT 50 SEC (25-37)
[2017-11-01 06:35] LABS: ABSOLUTE BASOPHIL COUNT 0 /CUMM (0.0-0.2); ABSOLUTE EOSINOPHIL COUNT 0.2 /CUMM (0.0-0.7); ABSOLUTE LYMPH COUNT 1.7 /CUMM (1.2-3.4); ABSOLUTE MONOCYTE COUNT 0.4 /CUMM (0.10-0.60); BASOPHIL % 0.1 % (0.0-2.0); MEAN PLATELET VOLUME 8.4 FL (7.4-10.4); WHITE BLOOD CELL COUNT 10.7 /CUMM (4.8-10.8)
--- NOTE | 2017-11-01 06:39 | RADIOLOGY REPORT ---
EXAMINATION: XR PORTABLE CHEST CLINICAL INFORMATION: Respiratory failure. Intubation. COMPARISON: Chest x-ray October 31, 2017 TECHNIQUE: Portable frontal view of the chest was obtained. 5:56 AM FINDINGS: Endotracheal tube catheter in good position approximately 4 cm above tin. Left IJ catheter tip at cavoatrial junction. Nasogastric tube passes below the diaphragm but the catheter tip is not visualized. There is persistent pulmonary vascular congestion with pulmonary edema similar prior study. Haziness at lung bases accentuated by low inspiratory effort. Likely bilateral pleural effusions present as well. IMPRESSION: 1. Endotracheal tube catheter 4 cm above tin. 2. Left IJ catheter tip at cavoatrial junction. 3. Nasogastric tube passing into the stomach. 4. Persistent pulmonary vascular congestion and probable bilateral pleural effusions. No substantial change since prior chest x-ray.
[2017-11-01 06:56] LABS: ABSOLUTE GRANULOCYTE CT 8.3 /CUMM (1.4-6.5); EOSINOPHIL % 1.8 % (0-5); GRANULOCYTE % 77.7 % (42.2-75.2); HEMATOCRIT 23.4 % (42-52); MEAN CORPUSCULAR HGB 28.2 PG (27.0-31.0); MEAN CORPUSCULAR HGB CONC 31.8 G/DL (33.0-37.0); MEAN CORPUSCULAR VOLUME 88.7 FL (80.0-94.0); PLATELET COUNT 205 /CUMM (130-400); RBC DISTRIBUTION WIDTH 32.8 % (11.5-14.5); RED BLOOD CELL CT 2.64 /CUMM (4.70-6.10)
--- NOTE | 2017-11-01 07:31 | PN- Resident CRCU ---
Padmini Gonzalez 11/01/17 0731: Subjective HPI/CRCU Issues: Acute hypoxic respiratory failure 2/2 PNA vs pulmonary edema L wound dehisence of L AKA Hx of DVT and PVD Alcohol dependence History of CAD Acute blood loss anemia - 2/2 ? GI bleed vs retroperitoneal bleed? 24 Hour Events: Patient seen and examined at bedside. He is intubated and sedated. Vitals within the past 24 hrs, A/F, HR: 92-113, sinus ryhtm, BP: 95-112/46-63, CVP: 6-11; AC; RR: 24, TV: 550ML, PEEP: 5, saturating 92-97%. I: 3071mls; O: 1935mls. Objective Vital Signs & I&O Last 8 Hrs of Vitals and I&O: Vital Signs Date Time Temp Pulse Resp B/P B/P Pulse O2 O2 Flow FiO2 Mean Ox Delivery Rate / 0641 50 02/ 0407 50 02/ 0400 98.7 104 24 90/60 02/05 0400 96 Ventilator 50% 02/05 0238 50 02/05 0233 55 02/05 0200 99.2 106 28 106/70 02/05 0000 99.2 113 34 104/55 02/05 0000 92 Ventilator 55% 02/05 0000 99.2 113 34 104/55 92 Ventilator 55% 02/04 2227 55 02/04 2200 98.5 98 35 104/60 02/04 2121 55 02/04 1999 98.5 95 26 97/64 02/04 2000 98 Ventilator 60% 02/04 1718 60 02/04 1600 92 Ventilator 60% 02/04 1600 97.8 99 26 104/60 92 Ventilator 60% 02/04 1416 45 02/04 1200 95 Ventilator 45% 02/04 0909 45 02/04 0800 96 Ventilator 45% 02/04 0800 98.0 98 28 101/56 96 Ventilator 45% Intake & Output 02/05 0800 02/05 0000 02/04 1600 Intake Total 1209 1224.6 Output Total 835 200 Balance 374 1024.6 Intake, IV 399 664.6 Intake, Oral 0 Intake, Tube 400 240 Feeding Intake, Tube 410 320 Irrigant Output, Urine 835 200 Exam General Appearance: sedated, intubated Head: atraumatic Neck: normal inspection, supple, RIJ Respiratory: decreased breath sounds in right lung base anteriorly, with trasnmitted breath sounds Cardiovascular: regular rate/rhythm Gastrointestinal: normal bowel sounds, soft Extremities: has an above knee amputation of left leg, and 1+ edema of RLE. Cranial Nerves: PERRL Nutrition Nutrition: tube feeding Current Medications: Current Medications Sig/Lillie Start time Last Medication Dose Route Stop Time Status Admin Acetaminophen 650 MG Q8P PRN 10/26 2115 AC PO Albuterol Sulfate 3 ML Q4P PRN 10/28 1430 AC 10/31 INH 2131 Ampicillin Sodium/ 3,000 MG Q6 10/28 2359 AC 11/01 Sulbactam Sodium IV 0642 Sodium Chloride 100 ML Famotidine 40 MG QPM 10/27 2200 AC 10/31 PO 2235 Folic Acid 1 MG DAILY 10/27 1000 AC 10/31 PO 0912 Furosemide 40 MG ONCE ONE 10/31 1345 DC 10/31 IV 10/31 1346 1401 Gabapentin 300 MG TID 10/26 2200 AC 10/31 PO 2235 Heparin Sodium 5,000 UNIT .STK-MED ONE 10/31 1045 DC (Porcine) IV 10/31 1046 Heparin Sodium 25,000 UNIT Q24H 10/28 1445 AC 10/31 (Porcine) IV 1831 Sodium Chloride 500 ML Hydromorphone HCl 0.4 MG Q6P PRN 10/27 0415 AC 11/01 IV 0048 Lorazepam 1 MG Q1 NEEDED PRN 10/29 0830 AC 10/31 IV 0912 Lorazepam 0 Q1P PRN 10/26 2200 AC 10/31 IV 2312 Multivitamins 15 ML DAILY 10/29 1000 AC 10/31 PO 0913 Pantoprazole Sodium 40 MG DAILY 10/29 1000 AC 10/31 IV 0912 Potassium Phosphate 15 mMol ONE ONE 10/31 1400 DC 10/31 Sodium Chloride 250 ML IV 10/31 1804 1659 Potassium Phosphate 15 mMol ONE ONE 10/31 0915 DC 10/31 Sodium Chloride 250 ML IV 10/31 1319 1252 Pravastatin Sodium 20 MG 1700 10/27 1700 AC 10/31 PO 1614 Thiamine HCl 100 MG DAILY 10/30 1000 AC 10/31 Sodium Chloride 50 ML IV 0913 Thiamine HCl 100 MG DAILY 10/27 1000 AC 10/31 PO 0912 Antibiotics Antibiotic: Unasyn Day #: 4 IV/PO? IV If IV, Change to PO? No CXR Findings: SERVICE DATE: 11/01/17 EXAM TYPE: RAD - XRY-PORTABLE CHEST XRAY FINDINGS: Endotracheal tube catheter in good position approximately 4 cm above tin. Left IJ catheter tip at cavoatrial junction. Nasogastric tube passes below the diaphragm but the catheter tip is not visualized. There is persistent pulmonary vascular congestion with pulmonary edema similar prior study. Haziness at lung bases accentuated by low inspiratory effort. Likely bilateral pleural effusions present as well. IMPRESSION: 1. Endotracheal tube catheter 4 cm above tin. 2. Left IJ catheter tip at cavoatrial junction. 3. Nasogastric tube passing into the stomach. 4. Persistent pulmonary vascular congestion and probable bilateral pleural effusions. No substantial change since prior chest x-ray. 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 He had left AKA stump infection in 06/2017 s/p I&D, debridement and washout x [address] Crystal who presented to the ED on 10/26/17 with c/o sensation in his left stump where he saw bone coming out of the wound. He was scheduled to be taken to the OR on Wednesday10/29/17, however, his hospital course was complicated by acute hypoxic respiratory failure thought to be multifactorial 2/2 requiring intubation for airway protection. Assessment and Plan: # Acute hypoxic respiratory failure - Multifactorial at this point 2/2 PNA (given leukocytosis - ? viral - ? bacterial, and significantly increased diffuse opacities throughout both lungs) vs pulmonary edema, given ? small right sided pleural effusion - Continue Unasyn for now, given concern for aspiration PNA (patient is alcoholic, was lethargic) - He received 20mg of IV lasix yesterday. CXR this aM looks better - Urinary antigen for legionella, strep pneumo, and r/o rapid flu - all negative - Urine tox screen -ve for cocaine - F/U BC X2 (10/28/17), LRC(10/29/17) - yeast, UC (10/28/17) - Try to maintain sats > 92%. - Maintain on aspiration precautions. - Ativan 1mg q1 PRN for anxiety and agitation #Acute on chronic blood loss anemia - 2/2 GI bleed and ? restroperitoneal bleed. - If guaic positive, will consult GI - Meanwhile, type and cross match 1 unit PRBC. Consent obtained from family over phone. - F/U CBC @ 14:00. - Goal H&H > 05/20 - If H&H doesnt imporve appropraitely, will consider CT abdomen/Pelvis to R/O retroperitoneal bleed. # Leukocytosis - Most likely 2/2 pneumonia vs cellulitis at site of wound dehisicence. - Continue Unasyn 3000mg q6 for PNA. Will broaden coverage if his respiratory or clinical status continues to detriorate - Continue to monitor. - F/U BCX2, UC # Hypotension - Stable. - Patient has a RIJ in place, if need will satrt on Levophed to maintain blood pressure. - Maintain MAP of >65mmHg - F/U repeat Echo shows normal EF of 60% with impaired LV relaxation. Mild mitral regurgitation. - Trop and ECG - no evidence of ischemic changes. - ECG: sinues tachycardia, with PACs # PVD - Patient was scheduled to go to the OR on Wednesday for a left AKA revision given concern for infection. - Hold off surgery for now. - Appreciate Vascular surgery recs #Normocytic anemia - 2/2 nutritional deficiencies? - TSH, FT4 WNL folate and Vitamin B12, WNL. - iron studies cw anemia of chronic disease #Hypokalemia - Resolved - Most likely 2/2 diuresis - Maintain k> 4.0 #Hypocalcemia - In the setting of low albumin - Corrected is WNL. # Alcohol dependence - On CIWA protocol. - Patient is curerntly inubated, will palce onAtivan 1mg Q1PRN of ranxiety - alcohol withdrawl. - Meanwhile continue IV Thiamine. #Decubitus ulcers on buttocks - Stage three pressure ulcers on her buttocks bilaterally. - Wound care - Diet -Nutrition recs for tube feeds appreciated. - Continue tube feeds tonight. - DVT prophylaxis - On IV Heparin - Code status - Full Code Problem List: 1. Hypotension 2. Anemia 3. Alcohol use 4. Acute respiratory distress Pain Ratin Tomorrow's Labs & Rationales: CBC- leukocytosis ICU - electrolyte Plan DVT/Prophylaxis: pharmacological Dagoberto Flores MD 11/01/17 0906: Attending MD Review Statement Attending Sign Off Attending Cosign Statement: I have: examined this patient, reviewed avalbl EMR data, personally reviewd images, discussd w/resident/PA/PAPER FOLDING MACHINE OPERATOR, discussed mgmt plan w/laci, discussed mgmt plan w/CM, discussed mgmt plan w/pt, agreed w/resident/PA/PAPER FOLDING MACHINE OPERATOR, amended to note. Other Findings: I, Dagoberto Flores M.D. have examined this patient, reviewed available EMR data, personally reviewed images, discussed with resident/PA/PAPER FOLDING MACHINE OPERATOR, discussed management plan with housestaff and nursing staff, discussed managment plan all of healthcare providers, discussed management plan with patient and/or family, agreed with resident/PA/PAPER FOLDING MACHINE OPERATOR. The past history and parts of the chart have been autopopulated. Impression 62 year old man * acute hypoxemic respiratory failure - multifactorial - fluid overload vs infectious process * consideration for aspiration pneumonia - wbc improved on unasyn * anemia can be component of iron deficiency and alcoholism * hypophosphatemia, hypokalemia, hypomagnesemia * etoh dependence * hx of dvt/pe on eliquis at home - heparin gtt now Plan Respiratory/ID -cont mechanical ventilation -diffuse interstitial opacities -small effusions -cont unasyn for now, improved cxr CVS/metabolic/Heme -transfusion, guaiac, if positive GI input -monitor hemodynamics -replete electrolytes -monitor lfts, creatinine -heparin gtt -f/u cardiology Alimentary -tube feeds, dietary/nutrition consult Neuro -CIWA protocol -mvi, electrolyte repletion -folate, thiamine DVT prophylaxis at all times TTS 35 min
[2017-11-01 09:12] LABS: PTT 59 SEC (25-37)
[2017-11-01 17:16] LABS: ABSOLUTE BASOPHIL COUNT 0 /CUMM (0.0-0.2); ABSOLUTE EOSINOPHIL COUNT 0.3 /CUMM (0.0-0.7); ABSOLUTE GRANULOCYTE CT 9.7 /CUMM (1.4-6.5); ABSOLUTE LYMPH COUNT 1.6 /CUMM (1.2-3.4); ABSOLUTE MONOCYTE COUNT 0.5 /CUMM (0.10-0.60); BASOPHIL % 0.3 % (0.0-2.0); EOSINOPHIL % 2.2 % (0-5); GRANULOCYTE % 80.2 % (42.2-75.2); HEMATOCRIT 27.7 % (42-52); MEAN CORPUSCULAR HGB 28.9 PG (27.0-31.0); MEAN CORPUSCULAR HGB CONC 33.1 G/DL (33.0-37.0); MEAN CORPUSCULAR VOLUME 87.3 FL (80.0-94.0); MEAN PLATELET VOLUME 8.4 FL (7.4-10.4); PLATELET COUNT 214 /CUMM (130-400); RBC DISTRIBUTION WIDTH 30.9 % (11.5-14.5); RED BLOOD CELL CT 3.18 /CUMM (4.70-6.10); WHITE BLOOD CELL COUNT 12.1 /CUMM (4.8-10.8)
[2017-11-01 17:25] LABS: PTT 58 SEC (25-37)
[2017-11-02] VITALS (7 sets, daily range): BP systolic 102–116; BP diastolic 60–70
--- NOTE | 2017-11-02 01:02 | CT SCAN REPORT ---
EXAMINATION: CT ABDOMEN AND PELVIS WITHOUT CONTRAST CLINICAL INFORMATION: Retroperitoneal bleed. Blood loss. Anemia. On heparin. COMPARISON: None TECHNIQUE: Multidetector volumetric imaging was performed from the superior aspect of the liver through the pubic symphysis. Sagittal and coronal reformatted images were obtained on the technologist's workstation. DLP: 598.17 mGy-cm FINDINGS: There is motion. LUNG BASES: Small bilateral pleural effusions. Volume larger on the left than right. Interstitial edema present. Nasogastric tube tip is at the level of the gastroesophageal junction. LIVER, GALLBLADDER, AND BILIARY TREE: The liver is normal in size, shape, and attenuation. No focal hepatic lesion or biliary ductal dilatation is present. The gallbladder is unremarkable with no evidence of radiopaque gallstones, gallbladder wall thickening, or obvious pericholecystic inflammatory changes. PANCREAS: Unremarkable. SPLEEN: Unremarkable. ADRENAL GLANDS: Unremarkable. KIDNEYS AND URETERS: The kidneys are normal in size, shape, and attenuation. No hydronephrosis, hydroureter, or calculi seen. No perinephric stranding. BLADDER: Unremarkable. GASTROINTESTINAL TRACT: Meyer catheter within the bladder. MESENTERY: Small to moderate volume of abdominal ascites. The abdominal ascites is new since CAT scan September 17, 2017. There is no retroperitoneal bleed. ABDOMINAL WALL: No significant hernia is appreciated. LYMPH NODES: Normal. VASCULAR: Atherosclerotic vascular wall calcifications of the abdomen and pelvis. No aneurysm of the aorta. PELVIC VISCERA: Unremarkable. OSSEOUS STRUCTURES: Degenerative spondylosis of spine with endplate spurring of vertebrae. Slight anterior wedge compression deformity T11 vertebrae. This is unchanged since prior CAT scan September 17, 2017 IMPRESSION: 1. No retroperitoneal bleed. 2. Small moderate volume of abdominal ascites. This is new since the prior CAT scan September 17, 2017. 3. Small bilateral pleural effusions left larger in volume than right. Interstitial edema at lung bases. 4. Nasogastric tube tip at the GE junction. This can be advanced down into the stomach.
[2017-11-02 02:02] LABS: PTT 68 SEC (25-37)
[2017-11-02 05:29] LABS: ABSOLUTE BASOPHIL COUNT 0 /CUMM (0.0-0.2); ABSOLUTE EOSINOPHIL COUNT 0.3 /CUMM (0.0-0.7); ABSOLUTE LYMPH COUNT 1.8 /CUMM (1.2-3.4); ABSOLUTE MONOCYTE COUNT 0.6 /CUMM (0.10-0.60); BASOPHIL % 0.1 % (0.0-2.0); EOSINOPHIL % 2.3 % (0-5); GRANULOCYTE % 78.3 % (42.2-75.2); HEMATOCRIT 27.9 % (42-52); MEAN CORPUSCULAR HGB 28.2 PG (27.0-31.0); MEAN CORPUSCULAR HGB CONC 32.1 G/DL (33.0-37.0); MEAN CORPUSCULAR VOLUME 87.9 FL (80.0-94.0); MEAN PLATELET VOLUME 8.6 FL (7.4-10.4); PLATELET COUNT 204 /CUMM (130-400); RBC DISTRIBUTION WIDTH 30.4 % (11.5-14.5); RED BLOOD CELL CT 3.17 /CUMM (4.70-6.10); WHITE BLOOD CELL COUNT 12.7 /CUMM (4.8-10.8)
--- NOTE | 2017-11-02 05:53 | RADIOLOGY REPORT ---
EXAMINATION: XR PORTABLE CHEST CLINICAL INFORMATION: Status post intubation. COMPARISON: Chest x-ray November 01, 2017, 5:56 AM TECHNIQUE: Portable frontal view of the chest was obtained. 5:32 AM FINDINGS: Endotracheal tube catheter 3.5 cm above tin. Nasogastric tube passing below the diaphragm. Left IJ catheter tip at caval atrial junction. Persistent pulmonary vascular congestion with interstitial edema. No significant change since prior study. IMPRESSION: 1. Endotracheal tube 3.5 centers been chronic. 2. Left IJ catheter tip at cavoatrial junction. 3. Nasogastric tube passing into stomach. 4. Persistent pulmonary vascular congestion.
--- NOTE | 2017-11-02 07:14 | PN- CRCU ---
Subjective HPI/Critical Care Issues: The patient is more awake this morning but remains lethargic. He is trying to follow commands. His oxygen requirement has significantly improved, noting he is down to 40% with saturations in the high 80s. The patient remains afebrile and hemodynamically stable. His CVP is ranging between 7 and 8. He is tolerating tube feeds without issue. He remains on a heparin drip for ongoing anticoagulation. He is afebrile but his white count remains mildly elevated at 12.7. He remains on IV Unasyn. Cultures are negative so far. Objective Current Medications: Current Medications Sig/Lillie Start time Last Medication Dose Route Stop Time Status Admin Acetaminophen 650 MG Q8P PRN 10/26 2115 AC PO Albuterol Sulfate 3 ML Q4P PRN 10/28 1430 AC 10/31 INH 2131 Ampicillin Sodium/ 3,000 MG Q6 10/28 2359 AC 11/02 Sulbactam Sodium IV 0518 Sodium Chloride 100 ML Famotidine 40 MG QPM 10/27 2200 DC 10/31 PO 2235 Folic Acid 1 MG DAILY 10/27 1000 AC 11/01 PO 0915 Furosemide 40 MG ONCE ONE 11/01 1030 DC 11/01 IV 11/01 1031 1433 Gabapentin 300 MG TID 10/26 2200 AC 11/01 PO 2158 Heparin Sodium 5,000 UNIT .STK-MED ONE 11/01 1857 DC (Porcine) IV 11/01 1858 Heparin Sodium 25,000 UNIT Q24H 10/28 1445 AC 11/01 (Porcine) IV 1919 Sodium Chloride 500 ML Hydromorphone HCl 0.4 MG Q6P PRN 10/27 0415 AC 11/01 IV 0048 Lorazepam 1 MG Q1 NEEDED PRN 10/29 0830 AC 11/01 IV 1800 Lorazepam 0 Q1P PRN 10/26 2200 AC 10/31 IV 2312 Magnesium Sulfate 1 GM Q2H 11/01 0815 DC 11/01 Dextrose/Water 100 ML IV 11/01 1214 1217 Multivitamins 15 ML DAILY 10/29 1000 AC 11/01 PO 0916 Pantoprazole Sodium 40 MG DAILY 10/29 1000 AC 11/01 IV 0914 Potassium Phosphate 15 mMol ONE ONE 11/01 0815 DC 11/01 Sodium Chloride 250 ML IV 11/01 1219 1435 Pravastatin Sodium 20 MG 1700 10/27 1700 AC 11/01 PO 1621 Thiamine HCl 100 MG DAILY 10/30 1000 AC 11/01 Sodium Chloride 50 ML IV 0916 Thiamine HCl 100 MG DAILY 10/27 1000 AC 11/01 PO 0915 Vital Signs & I&O Last 24 Hrs of Vitals and I&O: Vital Signs Date Time Temp Pulse Resp B/P B/P Pulse O2 O2 Flow FiO2 Mean Ox Delivery Rate 11/02 0656 40 11/02 0600 98.8 102 33 106/65 / 0410 40 11/02 0400 98.8 102 34 106/64 02/06 0400 96 Ventilator 40% / 0200 98.9 106 34 116/69 02/06 0156 40 02/ 0000 98.9 104 38 116/70 02/06 0000 98.9 104 38 116/70 91 Ventilator 40% 02/06 0000 95 Ventilator 40% 02/05 2229 40 02/05 2200 99.0 98 33 114/59 02/05 1999 99.0 98 30 100/62 02/05 2000 98 Ventilator 40% 02/05 1955 40 02/05 1600 45 02/05 1600 99 30 100/68 02/05 1600 98.6 99 3 100/68 99 Ventilator 45% 02/05 1600 99 Ventilator 45% 02/05 1405 45 02/05 1400 98 30 127/64 02/05 1209 45 02/05 1200 98.2 100 32 118/62 02/05 1200 98 Ventilator 45% 02/05 1000 103 32 136/65 02/05 0800 96.6 102 32 110/68 02/05 0800 96.6 102 32 110/68 99 Ventilator 45% 02/05 0800 99 Ventilator 50% /05 0740 50 Intake & Output 11/02 0800 02/06 0000 02/05 1600 Intake Total 1244 1128 1609 Output Total 300 1750 400 Balance 944 -622 1209 Intake, Blood 440 Product Intake, IV 438 431 544 Intake, Tube 586 497 355 Feeding Intake, Tube 220 200 270 Irrigant Output, Urine 300 1750 400 Physical Exam General Appearance: moderate distress, on Bipap, chronically ill Head: atraumatic, normal appearance Eyes: Bilateral: PERRL. Neck: supple Respiratory: decreased breath sounds, crackles, rhonchi Cardiovascular: S1 and S2 heard, mild tachycardia Gastrointestinal: normal bowel sounds, soft, non-tender Extremities: left AKA, bandages in place Skin: normal color, warm/dry Results Last 24 Hrs of Lab Results: Laboratory Tests 11/02/17 0700: pH Pending, pCO2 Pending, pO2 Pending, HCO3 Pending, ABG O2 Sat (Measured) Pending, P-50 (Temp Corrected) Pending, Carboxyhemoglobin Pending, O2 Concentration % Pending, Temperature Pending, Respiration Rate Pending, O2 Delivery Method Pending, Vent Mode Pending, Expiratory Pressure Pending, Tidal Volume Pending, Pressure Support Pending, Phlebotomy Draw Site Pending 11/02/17 0415: Anion Gap 6, Estimated GFR > 60, Glucose 109 H, Calcium 7.0 L, Phosphorus 2.7, Magnesium 1.9, Total Bilirubin 0.4, AST 47, ALT 37, Albumin 1.8 L, CBC w Diff NO MAN DIFF REQ, RBC 3.17 L, MCV 87.9, MCH 28.2, MCHC 32.1 L, RDW 30.4 H, MPV 8.6, Gran % 78.3 H, Lymphocytes % 14.3 L, Monocytes % 5.0, Eosinophils % 2.3, Basophils % 0.1, Absolute Granulocytes 10.0 H, Absolute Lymphocytes 1.8, Absolute Monocytes 0.6, Absolute Eosinophils 0.3, Absolute Basophils 0 11/02/17 0120: APTT 68 H 11/01/17 1605: APTT 58 H, CBC w Diff NO MAN DIFF REQ, RBC 3.18 L, MCV 87.3, MCH 28.9, MCHC 33.1, RDW 30.9 H, MPV 8.4, Gran % 80.2 H, Lymphocytes % 13.2 L, Monocytes % 4.1, Eosinophils % 2.2, Basophils % 0.3, Absolute Granulocytes 9.7 H, Absolute Lymphocytes 1.6, Absolute Monocytes 0.5, Absolute Eosinophils 0.3, Absolute Basophils 0 11/01/17 1025: pH 7.49 H, pCO2 34 L, pO2 89, HCO3 25, ABG O2 Sat (Measured) 96.0, Carboxyhemoglobin 0.3 L, O2 Concentration % 45, Respiration Rate 24, O2 Delivery Method VENT, Vent Mode AC, Expiratory Pressure 5, Tidal Volume 500, Phlebotomy Draw Site LEFT RADIAL 11/01/17 0815: APTT 59 H Last 24 Hrs of Micro Results: Respiratory culture positive for yeast on 10/29/2017. Impression/Plan Impression/Plan Impression/Plan: 1. Progressive respiratory failure - may be multifactorial. CXR shows bilateral opacities suggestive of pulmonary edema, however superimposed pneumonia was considered and patient being treated with IV Unasyn. 2. PVD now with left stump dehiscence and exposed femur - surgery on hold due to respiratory failure. 3. Alcohol dependence. 4. COPD. 5. History of CAD and NSTEMI. 6. LLE including thrombectomy. Recommendations: * Continue with electrolyte repletion's as ordered. * Avoid sedating medications. * Weaning trials to begin. * IV lasix has been held. Pulmonary edema remains on chest x-ray. Will need to discuss this with cardiology. * Cardiology following, will continue to follow up recommendations. * Continue IV Unasyn, ID input?. * Continue Heparin drip for therapeutic PTT. * Monitor on CIWA protocol. * MVI/thiamine/folate. * Tube feeds started. * Surgery cancelled until patient is stabilized. * Vent bundle/DVT prophylaxis/GI prophylaxis at all times. * Continue to monitor in the critical care unit.
--- NOTE | 2017-11-02 07:36 | PN- Resident CRCU ---
Subjective HPI/CRCU Issues: Acute hypoxic respiratory failure 2/2 PNA vs pulmonary edema Persistent leukocytosis L wound dehisence of L AKA Hx of DVT and PVD Alcohol dependence History of CAD Acute blood loss anemia - 2/2 ? GI bleed vs retroperitoneal bleed? 24 Hour Events: Patient seen and examined at bedside. He is intubated and not on sedation. Vitals in the past 24 hrs A/F, NSR, HR: 58-86, RR: 14-29, BP: 102-162/50-67, Vent settings AC TV: 460mls, RR: 14, PEEP: 5, on FiO2: 30%, saturating 92-95%. His WBC is still elevated @ 12.7. Of note he received a blood transfusion - 1 PR[address] a [address] of abdomen/plevis showed no evidence of retroperitoneal bleed. His CT did show new small moderate volume of abdominal ascites, and small bilateral pleural effusions left larger in volume than right. Interstitial edema at lung bases. Objective Vital Signs & I&O Last 8 Hrs of Vitals and I&O: Intake & Output 11/02 0800 Intake Total 1244 Output Total 300 Balance 944 Intake, IV 438 Intake, Tube 586 Feeding Intake, Tube 220 Irrigant Output, Urine 300 Exam General Appearance: intubated, lethargic, arousable Head: atraumatic Neck: supple Respiratory: b/l ronchi; transmitted breath sounds Cardiovascular: tachycardia Gastrointestinal: normal bowel sounds, soft, non-tender Extremities: left above knee amputation; 1-2+ edema on RLE. Cranial Nerves: PERRL Central Line Site: [facility] Date In: 10/29/17 Need for Catheter: if needs pressors Nutrition Nutrition: tube feeding Current Medications: Current Medications Sig/Lillie Start time Last Medication Dose Route Stop Time Status Admin Acetaminophen 650 MG Q8P PRN 10/26 2115 AC PO Albuterol Sulfate 3 ML Q4P PRN 10/28 1430 AC 10/31 INH 2131 Ampicillin Sodium/ 3,000 MG Q6 10/28 2359 AC 11/02 Sulbactam Sodium IV 0518 Sodium Chloride 100 ML Famotidine 40 MG QPM 10/27 2200 DC 10/31 PO 2235 Folic Acid 1 MG DAILY 10/27 1000 AC 11/01 PO 0915 Furosemide 40 MG ONCE ONE 11/01 1030 DC 11/01 IV 11/01 1031 1433 Gabapentin 300 MG TID 10/26 2200 AC 11/01 PO 2158 Heparin Sodium 5,000 UNIT .STK-MED ONE 11/01 1857 DC (Porcine) IV 11/01 1858 Heparin Sodium 25,000 UNIT Q24H 10/28 1445 AC 11/01 (Porcine) IV 1919 Sodium Chloride 500 ML Hydromorphone HCl 0.4 MG Q6P PRN 10/27 0415 AC 11/01 IV 0048 Lorazepam 1 MG Q1 NEEDED PRN 10/29 0830 AC 11/01 IV 1800 Lorazepam 0 Q1P PRN 10/26 2200 AC 10/31 IV 2312 Magnesium Sulfate 1 GM Q2H 11/01 0815 DC 11/01 Dextrose/Water 100 ML IV 11/01 1214 1217 Multivitamins 15 ML DAILY 10/29 1000 AC 11/01 PO 0916 Pantoprazole Sodium 40 MG DAILY 10/29 1000 AC 11/01 IV 0914 Potassium Phosphate 15 mMol ONE ONE 11/01 0815 DC 11/01 Sodium Chloride 250 ML IV 11/01 1219 1435 Pravastatin Sodium 20 MG 1700 10/27 1700 AC 11/01 PO 1621 Thiamine HCl 100 MG DAILY 10/30 1000 AC 11/01 Sodium Chloride 50 ML IV 0916 Thiamine HCl 100 MG DAILY 10/27 1000 AC 11/01 PO 0915 Antibiotics Antibiotics? none CXR Findings: FINDINGS: Endotracheal tube catheter 3.5 cm above tin. Nasogastric tube passing below the diaphragm. Left IJ catheter tip at caval atrial junction. Persistent pulmonary vascular congestion with interstitial edema. No significant change since prior study. IMPRESSION: 1. Endotracheal tube 3.5 centers been chronic. 2. Left IJ catheter tip at cavoatrial junction. 3. Nasogastric tube passing into stomach. 4. Persistent pulmonary vascular congestion. CT Scan Findings: SERVICE DATE: 11/01/17- EXAM TYPE: CAT - CT ABD & PELVIS W/O IV CONTRAS FINDINGS: There is motion. LUNG BASES: Small bilateral pleural effusions. Volume larger on the left than right. Interstitial edema present. Nasogastric tube tip is at the level of the gastroesophageal junction. LIVER, GALLBLADDER, AND BILIARY TREE: The liver is normal in size, shape, and attenuation. No focal hepatic lesion or biliary ductal dilatation is present. The gallbladder is unremarkable with no evidence of radiopaque gallstones, gallbladder wall thickening, or obvious pericholecystic inflammatory changes. PANCREAS: Unremarkable. SPLEEN: Unremarkable. ADRENAL GLANDS: Unremarkable. KIDNEYS AND URETERS: The kidneys are normal in size, shape, and attenuation. No hydronephrosis, hydroureter, or calculi seen. No perinephric stranding. BLADDER: Unremarkable. GASTROINTESTINAL TRACT: Meyer catheter within the bladder. MESENTERY: Small to moderate volume of abdominal ascites. The abdominal ascites is new since CAT scan September 17, 2017. There is no retroperitoneal bleed. ABDOMINAL WALL: No significant hernia is appreciated. LYMPH NODES: Normal. VASCULAR: Atherosclerotic vascular wall calcifications of the abdomen and pelvis. No aneurysm of the aorta. PELVIC VISCERA: Unremarkable. OSSEOUS STRUCTURES: Degenerative spondylosis of spine with endplate spurring of vertebrae. Slight anterior wedge compression deformity T11 vertebrae. This is unchanged since prior CAT scan September 17, 2017 IMPRESSION: 1. No retroperitoneal bleed. 2. Small moderate volume of abdominal ascites. This is new since the prior CAT scan September 17, 2017. 3. Small bilateral pleural effusions left larger in volume than right. Interstitial edema at lung bases. 4. Nasogastric tube tip at the GE junction. This can be advanced down into the stomach. 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 He had left AKA stump infection in 06/2017 s/p I&D, debridement and washout x [address] Crystal who presented to the ED on 10/26/17 with c/o sensation in his left stump where he saw bone coming out of the wound. He was scheduled to be taken to the OR on Wednesday10/29/17, however, his hospital course was complicated by acute hypoxic respiratory failure thought to be multifactorial 2/2 requiring intubation for airway protection. Assessment and Plan: # Acute hypoxic respiratory failure - Multifactorial - S/P treatment for aspiration PNA with Unasyn (given leukocytosis, AMS, hx of alcoholism and significantly increased diffuse opacities throughout both lungs) with CXR and CT of abdomen now c/w edema. - Will discontinue Unasyn for now given that he is afebrile, though he does have some mild leukocytosis. - Would diurese him with Lasix 40mg BID IV and F/U CXR tmrw, if shows worsening pleural effusion and/or his respiratory status worsens/ leukocytosis worsens, will pursue thoracentesis/paracentesis - Will foloow up with cardiology. - Of note, urinary antigen for legionella, strep pneumo, and r/o rapid flu - all negative - Urine tox screen -ve for cocaine - Will diurese him with 40mg of IV lasix BID today. Monitorstrict I's and O's. CVP 7-9 - F/U BC X2 (10/28/17), LRC(10/29/17) - yeast, UC (10/28/17) - Try to maintain sats > 92%. - Maintain on aspiration precautions. - Ativan 1mg q1 PRN for anxiety and agitation. - Will start ohn weaning trials #Acute on chronic blood loss anemia - 2/2 ? GI bleed - S/P transfusion 1 PRBC yesterday, with H&H stable @ 9.0/27.9. - If guaic positive, will consult GI - Goal H&H > 8/24 - CT abdomen/Pelvis r/o retroperitoneal bleed. - F/U stools guiac. - Continue to monitor H&H # Leukocytosis - WBC count today 12.7, though patient remains afebrile. - ? thoracentesis for the effusions vs abdominal paracentesis? think trhe effusion and ascites are most likely 2/2 heart failure - a lot of edema on the CT scan. - Will discontinue Unasyn today, and monitor off antibiotics for now. - Continue to monitor WBC. - F/U BCX2, UC # Hypotension - Stable. - Patient has a RIJ in place, if need will satrt on Levophed to maintain blood pressure. - Maintain MAP of >65mmHg - Meanwhile will diurese him with Lasix 40mg BID IV. - F/U repeat Echo shows normal EF of 60% with impaired LV relaxation. Mild mitral regurgitation. - Trop and ECG - no evidence of ischemic changes. - ECG: sinues tachycardia, with PACs - Cardio recs appreciated. F/U regarding diuresis # PVD - Patient was scheduled to go to the OR on Wednesday for a left AKA revision given concern for infection. - Hold off surgery for now. - Appreciate vascular surgery recs #Normocytic anemia - 2/2 nutritional deficiencies? - TSH, FT4 WNL folate and Vitamin B12, WNL. - Iron studies cw anemia of chronic disease #Hypokalemia - Resolved - Most likely 2/2 diuresis - Replete and maintain K> 4.0 #Hypocalcemia - In the setting of low albumin - Corrected is WNL. # Alcohol dependence - On CIWA protocol. - Patient is curerntly intubated, will place on Ativan 1mg Q1PRN for anxiety - alcohol withdrawl. - Meanwhile continue PO Thiamine. #Decubitus ulcers on buttocks - Stage three pressure ulcers on her buttocks bilaterally. - Wound care - Diet -Nutrition recs for tube feeds appreciated. - Continue tube feeds . - F/U pre-albumin level. - DVT prophylaxis - On IV Heparin - Code status - Full Code Problem List: 1. Hypotension 2. Alcohol use Pain Ratin Tomorrow's Labs & Rationales: CBC- WBC ICU - Cr, K, Plan DVT/Prophylaxis: pharmacological
[2017-11-02 15:45] LABS: PTT 50 SEC (25-37)
--- NOTE | 2017-11-02 17:03 | PN- Cardiology ---
Subjective Subjective: * Patient is no longer sedated and does respond appropriately to questions. No discernible discomfort. * sinus rhythm * wbc count is 12.7 * pulmonary congestion noted on chest X-ray with ascites on his abdominal CT Objective Vital Signs and I&Os Vital Signs Date Time Temp Pulse Resp B/P B/P Pulse O2 O2 Flow FiO2 Mean Ox Delivery Rate 11/02 1338 40 02/ 1200 95 Ventilator 40% 11/02 1000 98.2 87 30 109/61 02 0850 40 11/02 0800 98.2 87 29 102/60 11/02 0800 97 Ventilator 40% 11/02 08 98.2 87 29 102/60 97 Ventilator 40% 11/02 0656 40 11/02 06 98.8 102 33 106/65 02/ 0410 40 11/02 0400 98.8 102 34 106/64 / 0400 96 Ventilator 40% 11/02 0200 98.9 106 34 116/69 02/06 0156 40 02/ 0000 98.9 104 38 116/70 02/06 0000 98.9 104 38 116/70 91 Ventilator 40% 02/ 0000 95 Ventilator 40% / 2229 40 11/01 2200 99.0 98 33 114/59 11/01 1999 99.0 98 30 100/62 11/01 1999 98 Ventilator 40% 11/01 1955 40 Intake & Output 11/02 1600 11/02 0800 / 0000 / 1600 11/01 0811/01 0000 Intake Total 1244 1128 0320 315 6527 Output Total 300 1750 400 270 835 Balance 944 -622 1209 668 374 Intake, Blood 440 Product Intake, IV 438 431 544 338 399 Intake, Tube 586 497 355 400 400 Feeding Intake, Tube 220 200 270 200 410 Irrigant Output, Urine 300 1750 400 270 835 Patient 151 lb Weight Physical Exam: General: WD/WN male in NAD Neck: no JVD, no carotic bruit Heart: RRR with ectopy Lungs: lungs with upper airway congestion bilaterally ABdomen: soft, NT, +ve bowel sounds Extremities: no edema, Left AKA Assessment/Plan Assessment/Plan * This patient continues to have an X-ray that is consistent with pulmonary edema. Diurese with Lasix 40mg IV BID with careful monitoring of his blood pressure, BUN, creatinine and postassium. He is on Gabapentin which can cause some fluid retention. * Replete potassium to 4.0 and calcium if its corrected level is low. Continue telemetry? Yes
[2017-11-03] VITALS: BP 108/66
[2017-11-03 00:27] LABS: PTT 75 SEC (25-37)
[2017-11-03 04:59] LABS: ABSOLUTE BASOPHIL COUNT 0 /CUMM (0.0-0.2); ABSOLUTE EOSINOPHIL COUNT 0.4 /CUMM (0.0-0.7); ABSOLUTE GRANULOCYTE CT 10.5 /CUMM (1.4-6.5); ABSOLUTE LYMPH COUNT 1.8 /CUMM (1.2-3.4); ABSOLUTE MONOCYTE COUNT 0.9 /CUMM (0.10-0.60); BASOPHIL % 0.2 % (0.0-2.0); EOSINOPHIL % 3.2 % (0-5); GRANULOCYTE % 76.9 % (42.2-75.2); HEMATOCRIT 28.4 % (42-52); MEAN CORPUSCULAR HGB 28.4 PG (27.0-31.0); MEAN CORPUSCULAR HGB CONC 32.2 G/DL (33.0-37.0); MEAN CORPUSCULAR VOLUME 88.3 FL (80.0-94.0); MEAN PLATELET VOLUME 8.7 FL (7.4-10.4); PLATELET COUNT 251 /CUMM (130-400); RED BLOOD CELL CT 3.22 /CUMM (4.70-6.10); WHITE BLOOD CELL COUNT 13.7 /CUMM (4.8-10.8)
--- NOTE | 2017-11-03 06:00 | RADIOLOGY REPORT ---
EXAMINATION: XR PORTABLE CHEST CLINICAL INFORMATION: Intubation. COMPARISON: Chest x-ray November 02, 2017 TECHNIQUE: Portable frontal view of the chest was obtained. 5:24 AM FINDINGS: Endotracheal tube catheter 6 cm above tin. Left IJ catheter tip at cavoatrial junction. Nasogastric tube in stomach. Persistent bilateral interstitial edema unchanged since prior study November 02, 2017. IMPRESSION: 1. Endotracheal tube catheter 6 cm above tin. 2. Left IJ catheter at cavoatrial junction. 3. Nasogastric tube in stomach. 4. Persistent pulmonary vascular congestion with interstitial edema unchanged since November 02, 2017.
--- NOTE | 2017-11-03 07:44 | PN- Resident CRCU ---
Subjective HPI/CRCU Issues: Acute hypoxic respiratory failure 2/2 PNA vs pulmonary edema Persistent leukocytosis L wound dehisence of L AKA Hx of DVT and PVD Alcohol dependence History of CAD Acute blood loss anemia - 2/2 ? GI bleed 24 Hour Events: Patient seen and examined at bedside. He remains intubated and did not receive the evening dose of Lasix yesterday. Vitals past 24 hrs A/F, HR: 87-100, SR-ST, RR: 30-36, BP: 93-130/54-70, CVP: 4-7 , Vent settings: AC: RR: 24, TV: 500mls, FiO2: 40%, PEEP: 5, saturating 93-97% He remains in net negative 1.0 liters of positive fluid balance. I's: 3557, O's: 2400. Labs reviewed, his WBC count continues to remain elevated however he is afebrile. H&H: stable. Objective Vital Signs & I&O Last 8 Hrs of Vitals and I&O: Intake & Output 11/03 0800 Intake Total 1032 Output Total 850 Balance 182 Intake, IV 219 Intake, Tube 568 Feeding Intake, Tube 245 Irrigant Output, 200 Emesis Output, Urine 650 Exam General Appearance: intubated, lethargic Head: atraumatic Neck: supple Respiratory: b/l trasnmitted breath sounds, ronchorus on exam Cardiovascular: regular rate/rhythm Gastrointestinal: normal bowel sounds, soft Extremities: left above knee amputation; has bone protruding, with no purulent drainage noted from the site of the stump. No erythema noted. right lower extremity 1-2+ Cranial Nerves: PERRL Weaning Schedule Start Time: 1210 Minute Volume: 10.5 Resp Rate: 40 Vt: 325 Heart Rate: 85 End Time: 1215 Minute Volume: 11.2 Resp Rate: 42 Vt: 285 Heart Rate: 87 Central Line Site: RIJ Date In: 10/29/17 Need for Catheter: IN TE EVENT HE REQUIRES PRESSORS Current Medications: Current Medications Sig/Lillie Start time Last Medication Dose Route Stop Time Status Admin Acetaminophen 650 MG Q8P PRN 10/26 2115 AC PO Albuterol Sulfate 3 ML Q4P PRN 10/28 1430 AC 10/31 INH 2131 Ampicillin Sodium/ 3,000 MG Q6 10/28 2359 DC 11/02 Sulbactam Sodium IV 0518 Sodium Chloride 100 ML Bisacodyl 10 MG Q12P PRN 11/02 0845 AC MD Folic Acid 1 MG DAILY 10/27 1000 AC 11/02 PO 0958 Furosemide 40 MG DAILY 11/03 1000 DC IV Furosemide 40 MG BID 11/03 1000 AC IV Furosemide 40 MG 7:30 AM, & 4:30 PM 11/02 1630 CAN IV Furosemide 40 MG BID 11/02 1110 DC 11/02 IV 1112 Furosemide 40 MG ONCE ONE 11/02 1045 CAN IV 11/02 1046 Gabapentin 300 MG TID 10/26 2200 AC 11/02 PO 2100 Heparin Sodium 2,700 UNIT ONCE ONE 11/02 1715 DC 11/02 (Porcine) IV 11/02 1716 1655 Heparin Sodium 5,000 UNIT .STK-MED ONE 11/02 1651 DC (Porcine) IV 11/02 1652 Heparin Sodium 25,000 UNIT Q24H 10/28 1445 AC 11/02 (Porcine) IV 1430 Sodium Chloride 500 ML Hydromorphone HCl 0.4 MG Q6P PRN 10/27 0415 AC 11/01 IV 0048 Lorazepam 1 MG Q1 NEEDED PRN 10/29 0830 AC 11/02 IV 2159 Lorazepam 0 Q1P PRN 10/26 2200 AC 10/31 IV 2312 Magnesium Sulfate 1 GM ONCE ONE 11/02 0800 DC 11/02 Dextrose/Water 100 ML IV 11/02 1159 0850 Multivitamins 15 ML DAILY 10/29 1000 AC 11/02 PO 0959 Pantoprazole Sodium 40 MG DAILY 10/29 1000 AC 11/02 IV 0958 Polyethylene Glycol 17 GM DAILY 11/02 1000 AC 11/02 PO 0958 Potassium Chloride 40 MEQ ONCE ONE 11/02 1845 DC 11/02 PO 11/02 1846 1838 Potassium Phosphate 15 mMol ONE ONE 11/02 0800 DC 11/02 Dextrose/Water 250 ML IV 11/02 1204 0959 Pravastatin Sodium 20 MG 1700 10/27 1700 AC 11/02 PO 1705 Senna 187 MG AT BEDTIME 11/02 2200 AC 11/02 PO 2100 Thiamine HCl 100 MG DAILY 10/30 1000 DC 11/01 Sodium Chloride 50 ML IV 0916 Thiamine HCl 100 MG DAILY 10/27 1000 AC 11/02 PO 0959 Antibiotics Antibiotics? none CXR Findings: FINDINGS: Endotracheal tube catheter 6 cm above tin. Left IJ catheter tip at cavoatrial junction. Nasogastric tube in stomach. Persistent bilateral interstitial edema unchanged since prior study November 02, 2017. IMPRESSION: 1. Endotracheal tube catheter 6 cm above tin. 2. Left IJ catheter at cavoatrial junction. 3. Nasogastric tube in stomach. 4. Persistent pulmonary vascular congestion with interstitial edema unchanged since November 02, 2017. 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 He had left AKA stump infection in 06/2017 s/p I&D, debridement and washout x [address] Crystal who presented to the ED on 10/26/17 with c/o sensation in his left stump where he saw bone coming out of the wound. He was scheduled to be taken to the OR on Wednesday10/29/17, however, his hospital course was complicated by acute hypoxic respiratory failure thought to be multifactorial 2/2 requiring intubation for airway protection. Assessment and Plan: # Acute hypoxic respiratory failure - Multifactorial - S/P treatment for aspiration PNA with Unasyn (given leukocytosis, AMS, hx of alcoholism and significantly increased diffuse opacities throughout both lungs) with CXR and CT of abdomen now c/w edema. - Unasyn was discontinued given that he is afebrile, though he does have some mild leukocytosis. - Continue diuresis with Lasix 40mg BID IV and F/U CXR tmrw, if shows worsening pleural effusion and/or his respiratory status worsens/ leukocytosis worsens, will consider pursue thoracentesis/paracentesis - Will follow up with cardiology. - Of note, urinary antigen for legionella, strep pneumo, and r/o rapid flu - all negative - Urine tox screen -ve for cocaine - Monitorstrict I's and O's. CVP 7-9 - F/U BC X2 (10/28/17), LRC(10/29/17) - yeast, UC (10/28/17) - Try to maintain sats > 92%. - Maintain on aspiration precautions. - Ativan 1mg q1 PRN for anxiety and agitation. - Will start on weaning trials #Acute on chronic blood loss anemia - 2/2 ? GI bleed - S/P transfusion 1 PRBC yesterday, with H&H stable @ 9.1/28.4. - If guaic positive, will consult GI - Goal H&H > 8/24 - CT abdomen/Pelvis r/o retroperitoneal bleed. - F/U stools guiac. - Continue to monitor H&H # Leukocytosis - WBC count today 13.7 from 12.7 yesterday ? hemoconcentration, though patient remains afebrile. - ? thoracentesis for the effusions vs abdominal paracentesis? think trhe effusion and ascites are most likely 2/2 heart failure - Continue to monitor off antibiotics for now. - Continue to monitor WBC. - F/U BCX2: NGTD, UC: NGTD - ID consult placed. F/U recs. # Hypotension - Stable. - Patient has a RIJ in place, if need will satrt on Levophed to maintain blood pressure. - Maintain MAP of >65mmHg - Meanwhile will diurese him with Lasix 40mg BID IV. - Patient never received Lasix last evening - F/U repeat Echo shows normal EF of 60% with impaired LV relaxation. Mild mitral regurgitation. - Trop and ECG - no evidence of ischemic changes. - ECG: sinues tachycardia, with PACs - Cardio recs appreciated. # PVD - Patient was scheduled to go to the OR on Wednesday for a left AKA revision given concern for infection. - He is on schedule for surgery on Wednesday, however given his hemodynamic status, will re-evaluate tomorrow - Appreciate vascular surgery recs #Normocytic anemia - 2/2 nutritional deficiencies? - TSH, FT4 WNL folate and Vitamin B12, WNL. - Iron studies c/w anemia of chronic disease #Hypokalemia - Resolved - Most likely 2/2 diuresis - Replete and maintain K> 4.0 #Hypocalcemia - In the setting of low albumin - Corrected is WNL. # Alcohol dependence - On [facility] protocol. - Patient is curerntly intubated, will place on Ativan 1mg Q1PRN for anxiety - alcohol withdrawl. - Meanwhile continue PO Thiamine. #Decubitus ulcers on buttocks - Stage three pressure ulcers on her buttocks bilaterally. - Wound care on board - Diet - Nutrition recs for tube feeds appreciated. - Continue tube feeds . - F/U pre-albumin level. - DVT prophylaxis - On IV Heparin - Code status - Full Code Problem List: 1. Anemia 2. Amputated left leg Pain Ratin Tomorrow's Labs & Rationales: cbc- wbc; icu: cr Plan DVT/Prophylaxis: pharmacological
[2017-11-03 08:00] VITALS: BP 120/50
--- NOTE | 2017-11-03 09:22 | PN- Vascular Surgery ---
Surgical Brief Attending Note Brief Attending Note: If medically cleared, pt is on the OR schedule for left AKA revision on wednesday. Surgical PAs will preop.
--- NOTE | 2017-11-03 09:26 | PN- CRCU ---
Subjective HPI/Critical Care Issues: The patient is awake and follows commands. He appears mildly tachypnea. He remains on mechanical ventilation. He is currently afebrile. He completed 5 days of IV Unasyn and is now being monitored off antibiotics. He does however have copious amounts of sputum production which is white in nature. He is undergoing diuresis as recommended by cardiology. His CVP is ranging between 6 and 7. He has good urine output. He continues to tolerate tube feeds without issue. The patient remains on a heparin drip for therapeutic PTT. Objective Current Medications: Current Medications Sig/Lillie Start time Last Medication Dose Route Stop Time Status Admin Acetaminophen 650 MG Q8P PRN 10/26 2115 AC PO Albuterol Sulfate 3 ML Q4P PRN 10/28 1430 AC 10/31 INH 2131 Ampicillin Sodium/ 3,000 MG Q6 10/28 2359 DC 11/02 Sulbactam Sodium IV 0518 Sodium Chloride 100 ML Bisacodyl 10 MG Q12P PRN 11/02 0845 AC SC Folic Acid 1 MG DAILY 10/27 1000 AC 11/02 PO 0958 Furosemide 40 MG DAILY 11/03 1000 DC IV Furosemide 40 MG BID 11/03 1000 DC IV Furosemide 40 MG BID 11/03 0830 AC 11/03 IV 0829 Furosemide 40 MG 7:30 AM, & 4:30 PM 11/02 1630 CAN IV Furosemide 40 MG BID 11/02 1110 DC 11/02 IV 1112 Furosemide 40 MG ONCE ONE 11/02 1045 CAN IV 11/02 1046 Gabapentin 300 MG TID 10/26 2200 AC 11/02 PO 2100 Heparin Sodium 2,700 UNIT ONCE ONE 11/02 1715 DC 11/02 (Porcine) IV 11/02 1716 1655 Heparin Sodium 5,000 UNIT .STK-MED ONE 11/02 1651 DC (Porcine) IV 11/02 1652 Heparin Sodium 25,000 UNIT Q24H 10/28 1445 AC 11/02 (Porcine) IV 1430 Sodium Chloride 500 ML Hydromorphone HCl 0.4 MG Q6P PRN 10/27 0415 AC 11/01 IV 0048 Lorazepam 1 MG Q1 NEEDED PRN 10/29 0830 AC 11/02 IV 2159 Lorazepam 0 Q1P PRN 10/26 2200 AC 10/31 IV 2312 Magnesium Sulfate 1 GM ONCE ONE 11/02 0800 DC 11/02 Dextrose/Water 100 ML IV 11/02 1159 0850 Multivitamins 15 ML DAILY 10/29 1000 AC 11/02 PO 0959 Pantoprazole Sodium 40 MG DAILY 10/29 1000 AC 11/02 IV 0958 Polyethylene Glycol 17 GM DAILY 11/02 1000 AC 11/02 PO 0958 Potassium Chloride 40 MEQ ONCE ONE 11/02 1845 DC 11/02 PO 11/02 1846 1838 Potassium Phosphate 15 mMol ONE ONE 11/02 0800 DC 11/02 Dextrose/Water 250 ML IV 11/02 1204 0959 Pravastatin Sodium 20 MG 1700 10/27 1700 AC 11/02 PO 1705 Senna 187 MG AT BEDTIME 11/02 2200 AC 11/02 PO 2100 Thiamine HCl 100 MG DAILY 10/30 1000 DC 11/01 Sodium Chloride 50 ML IV 0916 Thiamine HCl 100 MG DAILY 10/27 1000 AC 11/02 PO 0959 Vital Signs & I&O Last 24 Hrs of Vitals and I&O: Vital Signs Date Time Temp Pulse Resp B/P B/P Pulse O2 O2 Flow FiO2 Mean Ox Delivery Rate 11/03 0850 40 11/03 0800 98.4 96 34 120/50 97 Ventilator 40% 11/03 0630 40 11/03 0400 98 Ventilator 40% 11/03 0230 40 11/03 0103 40 11/03 0000 99 Ventilator 40% / 0000 98.2 95 30 108/66 99 Ventilator 40% / 2237 40 11/02 2000 97 Ventilator 40% / 1900 40 / 1600 40 / 1600 96 Ventilator 40% / 1600 98.1 99 35 110/60 96 Ventilator 40% 11/02 1338 40 11/02 1200 95 Ventilator 40% 11/02 1000 98.2 87 30 109/61 Intake & Output 11/03 1600 02 0800 02/ 0000 Intake Total 1032 1043 Output Total 850 550 Balance 182 493 Intake, IV 219 204 Intake, Tube 568 559 Feeding Intake, Tube 245 280 Irrigant Output, 200 Emesis Output, Urine 650 550 Physical Exam General Appearance: moderate distress, on Bipap, chronically ill Head: atraumatic, normal appearance Eyes: Bilateral: PERRL. Neck: supple Respiratory: decreased breath sounds, crackles, rhonchi Cardiovascular: S1 and S2 heard, mild tachycardia Gastrointestinal: normal bowel sounds, soft, non-tender Extremities: left AKA, bandages in place Skin: normal color, warm/dry Results Last 24 Hrs of Lab Results: Laboratory Tests 11/03/17 0520: pH 7.44, pCO2 36, pO2 76 L, HCO3 24, ABG O2 Sat (Measured) 94.0 L, P-50 (Temp Corrected) N, Carboxyhemoglobin 1.2 L, O2 Concentration % 40%, Temperature 98.2 , Respiration Rate 24, O2 Delivery Method VENT, Vent Mode VC-AC, Expiratory Pressure 5, Tidal Volume 500, Phlebotomy Draw Site LEFT RADIAL 11/03/17 0410: Anion Gap 3 L, Estimated GFR > 60, Glucose 104 H, Calcium 7.4 L, Phosphorus 2.7, Magnesium 2.0, Total Bilirubin 0.3, AST 70 H, ALT 45, Albumin 1.9 L, CBC w Diff NO MAN DIFF REQ, RBC 3.22 L, MCV 88.3, MCH 28.4, MCHC 32.2 L, RDW 30.0 H, MPV 8.7, Gran % 76.9 H, Lymphocytes % 13.0 L, Monocytes % 6.7, Eosinophils % 3.2, Basophils % 0.2, Absolute Granulocytes 10.5 H, Absolute Lymphocytes 1.8, Absolute Monocytes 0.9 H, Absolute Eosinophils 0.4, Absolute Basophils 0 11/02/17 2330: APTT 75 H 11/02/17 1250: APTT 50 H Diagnostic Data CXR Findings: 1. Endotracheal tube catheter 6 cm above tin. 2. Left IJ catheter at cavoatrial junction. 3. Nasogastric tube in stomach. 4. Persistent pulmonary vascular congestion with interstitial edema unchanged since November 02, 2017. Impression/Plan Impression/Plan Impression/Plan: 1. Progressive respiratory failure - may be multifactorial. CXR shows bilateral opacities suggestive of pulmonary edema, however superimposed pneumonia was considered and patient was treated with 5 days of Unasyn. 2. PVD now with left stump dehiscence and exposed femur - surgery on hold due to respiratory failure. 3. Alcohol dependence. 4. COPD. 5. History of CAD and NSTEMI. 6. LLE including thrombectomy. Recommendations: * Continue with electrolyte repletion's as ordered. * Avoid sedating medications. * Weaning trials to begin. * Pulmonary edema remains on chest x-ray - continue with diuresis. Will need to discuss this with cardiology. * Cardiology following, will continue to follow up recommendations. * Hold off on antibiotics. ID consult requested as patient having copious secretions. * Continue Heparin drip for therapeutic PTT. * Monitor on CIWA protocol. * MVI/thiamine/folate. * Tube feeds started, at goal. * Surgery cancelled until patient is stabilized. Discussed with vascular surgery. * Vent bundle/DVT prophylaxis/GI prophylaxis at all times. * Continue to monitor in the critical care unit.
[2017-11-03 12:08] LABS: PTT 74 SEC (25-37)
[2017-11-03 16:00] VITALS: BP 110/60
--- NOTE | 2017-11-03 18:22 | PN- Vascular Surgery ---
Subjective Subjective: Patient remains intubated/sedated. Appears to be resting comfortably, no signs of distress Objective Vital Signs and I&Os Vital Signs Date Time Temp Pulse Resp B/P B/P Pulse O2 O2 Flow FiO2 Mean Ox Delivery Rate 11/03 1705 40 11/03 1600 100 Ventilator 40% 11/03 1600 99.2 104 32 110/60 100 Ventilator 40% 11/03 1415 40 11/03 1327 Ventilator 40% 11/03 1200 98 Ventilator 40% 11/03 1143 40 11/03 0850 40 11/03 0800 98.4 96 34 120/50 97 Ventilator 40% 11/03 0800 97 Ventilator 40% 11/03 0630 40 11/03 0400 98 Ventilator 40% 11/03 0230 40 11/03 0103 40 11/03 0000 99 Ventilator 40% 11/03 0000 98.2 95 30 108/66 99 Ventilator 40% 11/02 2237 40 11/02 2000 97 Ventilator 40% 11/02 1900 40 Intake & Output 11/03 1600 11/03 0800 02/ 0000 / 1600 11/02 0800 11/02 0000 Intake Total 1340 1032 1043 1482 1244 1128 Output Total 1600 763 661 9253 300 1750 Balance -260 182 493 482 944 -622 Intake, IV 260 219 204 580 438 431 Intake, Other 75 Intake, Tube 610 568 559 607 586 497 Feeding Intake, Tube 470 245 280 220 220 200 Irrigant Output, 200 Emesis Output, Urine 1600 605 340 1796 300 1750 Physical Exam: General: Intubated and sedated, not responding to verbal stimuli at present, no sign of distress Cardiac: RRR, s1s2 Abdomen: Softly distended Extremities: Left femoral stump dressing dry and intact, right foot warm and well perfused. Calf soft. Assessment/Plan Assessment/Plan Plan for OR Wednesday if medically cleared. In preparation for surgery, please note the following: *dc hep gtt at 0800 wednesday am *dc feedings at midnight into wednesday *these orders have been placed, if status changes and surgical intervention is not going to take place, please revert back to original care plan and dc these changes Can continue to provide daily dressing changes, okay to utilize xeroform or petroleum gauze if it helps prevent adherence of gauze to tissues/bone Core Measures Venous Thromboembolism VTE Risk Factors Acute Medical Illness No Mechanical VTE Prophylaxis d/t Other (LLE AKA) No VTE Pharm Prophylaxis d/t NA PharmProphylax ordered
[2017-11-03 23:00] VITALS: BP 98/60
[2017-11-03 23:56] LABS: PTT 81 SEC (25-37)
[2017-11-04 04:42] LABS: ABSOLUTE BASOPHIL COUNT 0.1 /CUMM (0.0-0.2); ABSOLUTE EOSINOPHIL COUNT 0.4 /CUMM (0.0-0.7); ABSOLUTE GRANULOCYTE CT 7.2 /CUMM (1.4-6.5); ABSOLUTE LYMPH COUNT 1.9 /CUMM (1.2-3.4); ABSOLUTE MONOCYTE COUNT 0.8 /CUMM (0.10-0.60); BASOPHIL % 0.6 % (0.0-2.0); EOSINOPHIL % 4.1 % (0-5); GRANULOCYTE % 69.4 % (42.2-75.2); HEMATOCRIT 26.5 % (42-52); MEAN CORPUSCULAR HGB 28.7 PG (27.0-31.0); MEAN CORPUSCULAR HGB CONC 32.6 G/DL (33.0-37.0); MEAN CORPUSCULAR VOLUME 87.9 FL (80.0-94.0); MEAN PLATELET VOLUME 8.8 FL (7.4-10.4); PLATELET COUNT 261 /CUMM (130-400); RBC DISTRIBUTION WIDTH 29.4 % (11.5-14.5); RED BLOOD CELL CT 3.01 /CUMM (4.70-6.10); WHITE BLOOD CELL COUNT 10.4 /CUMM (4.8-10.8)
--- NOTE | 2017-11-04 06:55 | RADIOLOGY REPORT ---
EXAMINATION: XR PORTABLE CHEST CLINICAL INFORMATION: Intubation COMPARISON: Portable chest November 03, 2017 TECHNIQUE: Portable frontal view of the chest was obtained. 6:13 AM FINDINGS: Endotracheal tube catheter approximately 2.5 cm above tin. Left IJ catheter tip at caval atrial junction. Nasogastric tube in stomach. There is low inspiratory effort. Continued diffuse increased interstitial lung markings with interstitial edema. There is mild improvement since prior exam. No dense consolidation. No large pleural effusion. IMPRESSION: 1. Endotracheal tube 2.5 tin. 2. Left IJ catheter tip at caval atrial junction. 3. Nasogastric tube in stomach. 4. Mild decrease in interstitial edema since prior exam November 13, 2017.
[2017-11-04 07:00] VITALS: BP 98/56
--- NOTE | 2017-11-04 07:23 | PN- Resident CRCU ---
Subjective HPI/CRCU Issues: Acute hypoxic respiratory failure 2/2 PNA and pulmonary edema Leukocytosis - resolved L wound dehisence of L AKA Hx of DVT and PVD Alcohol dependence History of CAD Acute blood loss anemia - 2/2 ? GI bleed 24 Hour Events: Patient seen and examined at bedside. He is more alert today and is responidng to commands. He remains ventilated. Plan to go to the OR tmrw. Vitals past 24 hrs Tmax: 99.3F, SR-ST: 82-104; RR: 20-34, BP: 92-117/52-71, CVP: 5-8; vent settings: AC; RR: 20; TV: 500; FiO2: 40%; PEEP" 5; 97-99% on RA. Of note, labs reviewed, his WBC count is back to normal. Objective Vital Signs & I&O Last 8 Hrs of Vitals and I&O: Intake & Output 11/04 0800 Intake Total 1005 Output Total 1470 Balance -465 Intake, IV 225 Intake, Oral 0 Intake, Other 560 Intake, Tube 220 Irrigant Output, Urine 1470 Patient 150 lb Weight Exam General Appearance: alert, awake, intubated Head: atraumatic Neck: normal inspection, supple Respiratory: b/l breath sounds Cardiovascular: regular rate/rhythm Gastrointestinal: normal bowel sounds, soft, non-tender Extremities: left above knee amputation covered in wound dressing; RLE - 1+ edema Cranial Nerves: PERRL Weaning Schedule Start Time: 1210 Minute Volume: 10.5 Resp Rate: 40 Vt: 325 Heart Rate: 85 End Time: 1215 Minute Volume: 11.2 Resp Rate: 42 Vt: 285 Heart Rate: 87 Central Line Site: [facility] Date In: 10/29/17 Need for Catheter: pressors Nutrition Nutrition: tube feeding Current Medications: Current Medications Sig/Lillie Start time Last Medication Dose Route Stop Time Status Admin Acetaminophen 650 MG Q8P PRN 10/26 2115 AC PO Albuterol Sulfate 3 ML Q4P PRN 10/28 1430 AC 10/31 INH 2131 Bisacodyl 10 MG Q12P PRN 11/02 0845 AC 11/03 [place] 1427 Folic Acid 1 MG DAILY 10/27 1000 AC 11/03 PO 1024 Furosemide 40 MG BID 11/03 1000 DC IV Furosemide 40 MG BID 11/03 0830 AC 11/03 IV 2110 Gabapentin 300 MG TID 10/260 AC 11/03 PO 2110 Heparin Sodium 25,000 UNIT Q24H 10/28 1445 AC 11/04 (Porcine) IV 11/05 0800 0109 Sodium Chloride 500 ML Hydromorphone HCl 0.4 MG Q6P PRN 10/27 0415 AC 11/03 IV 2217 Lorazepam 1 MG Q1 NEEDED PRN 10/29 0830 AC 11/02 IV 2159 Lorazepam 0 Q1P PRN 10/26 2200 AC 10/31 IV 2312 Multivitamins 15 ML DAILY 10/29 1000 AC 11/03 PO 1023 Pantoprazole Sodium 40 MG DAILY 10/29 1000 AC 11/03 IV 1023 Polyethylene Glycol 17 GM DAILY 11/02 1000 AC 11/03 PO 1024 Pravastatin Sodium 20 MG 1700 10/27 1700 AC 11/03 PO 1649 Senna 187 MG AT BEDTIME 11/02 2200 AC 11/03 PO 2110 Thiamine HCl 100 MG DAILY 10/27 1000 AC 11/03 PO 1024 Antibiotics Antibiotics? none CXR Findings: FINDINGS: Endotracheal tube catheter approximately 2.5 cm above tin. Left IJ catheter tip at caval atrial junction. Nasogastric tube in stomach. There is low inspiratory effort. Continued diffuse increased interstitial lung markings with interstitial edema. There is mild improvement since prior exam. No dense consolidation. No large pleural effusion. IMPRESSION: 1. Endotracheal tube 2.5 tni. 2. Left IJ catheter tip at caval atrial junction. 3. Nasogastric tube in stomach. 4. Mild decrease in interstitial edema since prior exam November 13, 2017. 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 He had left AKA stump infection in 06/2017 s/p I&D, debridement and washout x [address] Crystal who presented to the ED on 10/26/17 with c/o sensation in his left stump where he saw bone coming out of the wound. He was scheduled to be taken to the OR on Wednesday10/29/17, however, his hospital course was complicated by acute hypoxic respiratory failure thought to be multifactorial 2/2 requiring intubation for airway protection. Assessment and Plan: # Acute hypoxic respiratory failure - Multifactorial (aspiration PNA and CHF) - S/P treatment for aspiration PNA with Unasyn with CXR and CT of abdomen c/w edema . - Unasyn was discontinued given that he is afebrile, and has resolved leukocytosis. - Continue diuresis with Lasix 40mg BID IV and F/U CXR tmrw - Of note, urinary antigen for legionella, strep pneumo, and r/o rapid flu - all negative - Urine tox screen -ve for cocaine - Monitorstrict I's and O's. CVP 7-9 - F/U BC X2 (10/28/17), LRC(10/29/17) - yeast, UC (10/28/17) - Try to maintain sats > 92%. - Maintain on aspiration precautions. - Ativan 1mg q1 PRN for anxiety and agitation. - Will start on weaning trials #Acute on chronic blood loss anemia - 2/2 ? GI bleed - S/P transfusion 1 PRBC yesterday, with H&H stable @ 9.1/28.4. - If guaic positive, will consult GI - Goal H&H > 8/24 - CT abdomen/Pelvis r/o retroperitoneal bleed. - F/U stools guiac. - Continue to monitor H&H # Leukocytosis - WBC count dwon today to 10,000- leukocytosis most likely ? hemoconcentration, though patient remains afebrile. - ? thoracentesis for the effusions vs abdominal paracentesis? think the effusion and ascites are most likely 2/2 heart failure - Continue to monitor off antibiotics for now. - Continue to monitor WBC. - F/U BCX2: NGTD, UC: NGTD - ID consult placed. F/U recs. # Hypotension - Stable. - Patient has a RIJ in place, if need will satrt on Levophed to maintain blood pressure. - Maintain MAP of >65mmHg - Meanwhile continue diuresis with Lasix 40mg BID IV. - F/U repeat Echo shows normal EF of 60% with impaired LV relaxation. Mild mitral regurgitation. - Trop and ECG - no evidence of ischemic changes. - ECG: sinues tachycardia, with PACs - Cardio recs appreciated. # PVD - Patient was scheduled to go to the OR on Wednesday for a left AKA revision given concern for infection. - He is on schedule for surgery tmrw, tube feeds on hold tonight, and heparin on hold from 8:00am tmrw morning - Appreciate vascular surgery recs #Normocytic anemia - 2/2 nutritional deficiencies? - TSH, FT4 WNL folate and Vitamin B12, WNL. - Iron studies c/w anemia of chronic disease #Hypokalemia - Resolved - Most likely 2/2 diuresis - Replete and maintain K> 4.0 #Hypocalcemia - In the setting of low albumin - Corrected is WNL. # Alcohol dependence - On [facility] protocol. - Patient is curerntly intubated, will place on Ativan 1mg Q1PRN for anxiety - alcohol withdrawl. - Meanwhile continue PO Thiamine. #Decubitus ulcers on buttocks - Stage three pressure ulcers on her buttocks bilaterally. - Wound care on board - Diet - Nutrition recs for tube feeds appreciated. - Continue tube feeds NPO after MN tonight. - DVT prophylaxis - On IV Heparin - Code status - Full Code Problem List: 1. Amputated left leg 2. Anemia Pain Ratin Tomorrow's Labs & Rationales: cbc- platelet, H&H ICU - Cr Plan DVT/Prophylaxis: pharmacological
--- NOTE | 2017-11-04 07:49 | PN- CRCU ---
Subjective HPI/Critical Care Issues: The patient remains on mechanical ventilation. He did well with diuresis. His ventilator parameters remained stable. He follows commands. There were no overnight events reported. Objective Current Medications: Current Medications Sig/Lillie Start time Last Medication Dose Route Stop Time Status Admin Acetaminophen 650 MG Q8P PRN 10/26 2115 AC PO Albuterol Sulfate 3 ML Q4P PRN 10/28 1430 AC 10/31 INH 2131 Bisacodyl 10 MG Q12P PRN 11/02 0845 AC 11/03 [place] 1427 Folic Acid 1 MG DAILY 10/27 1000 AC 11/03 PO 1024 Furosemide 40 MG BID 11/03 1000 DC IV Furosemide 40 MG BID 11/03 0830 AC 11/03 IV 2110 Gabapentin 300 MG TID 10/26 2200 AC 11/03 PO 2110 Heparin Sodium 25,000 UNIT Q24H 10/28 1445 AC 11/04 (Porcine) IV 11/05 0800 0109 Sodium Chloride 500 ML Hydromorphone HCl 0.4 MG Q6P PRN 10/27 0415 AC 11/03 IV 2217 Lorazepam 1 MG Q1 NEEDED PRN 10/29 0830 AC 11/02 IV 2159 Lorazepam 0 Q1P PRN 10/26 2200 AC 10/31 IV 2312 Multivitamins 15 ML DAILY 10/29 1000 AC 11/03 PO 1023 Pantoprazole Sodium 40 MG DAILY 10/29 1000 AC 11/03 IV 1023 Polyethylene Glycol 17 GM DAILY 11/02 1000 AC 11/03 PO 1024 Pravastatin Sodium 20 MG 1700 10/27 1700 AC 11/03 PO 1649 Senna 187 MG AT BEDTIME 11/02 2200 AC 11/03 PO 2110 Thiamine HCl 100 MG DAILY 10/27 1000 AC 11/03 PO 1024 Vital Signs & I&O Last 24 Hrs of Vitals and I&O: Vital Signs Date Time Temp Pulse Resp B/P B/P Pulse O2 O2 Flow FiO2 Mean Ox Delivery Rate 11/04 0550 40 11/04 0400 98 Nasal 40% Cannula 11/04 0306 40 11/04 0048 40 11/04 0000 96 Ventilator 40% 11/03 2300 98.5 86 24 98/60 97 Ventilator 40% 11/03 2235 40 11/03 2000 98 Ventilator 40% 11/03 1926 40 11/03 1705 40 11/03 1600 100 Ventilator 40% 11/03 1600 99.2 104 32 110/60 100 Ventilator 40% 11/03 1415 40 11/03 1327 Ventilator 40% 11/03 1200 98 Ventilator 40% 11/03 1143 40 11/03 0850 40 11/03 0800 98.4 96 34 120/50 97 Ventilator 40% 11/03 0800 97 Ventilator 40% Intake & Output 11/04 0800 11/04 0000 11/03 1600 Intake Total 9825 933 9855 Output Total 1470 1210 1600 Balance -465 -264 -260 Intake, IV 225 226 260 Intake, Oral 0 Intake, Other 560 560 Intake, Tube 610 Feeding Intake, Tube 220 160 470 Irrigant Number 1 Bowel Movements Output, Urine 1470 1210 1600 Patient 150 lb Weight Physical Exam General Appearance: moderate distress, on Bipap, chronically ill Head: atraumatic, normal appearance Eyes: Bilateral: PERRL. Neck: supple Respiratory: decreased breath sounds, crackles, rhonchi Cardiovascular: S1 and S2 heard, mild tachycardia Gastrointestinal: normal bowel sounds, soft, non-tender Extremities: left AKA, bandages in place Skin: normal color, warm/dry Results Last 24 Hrs of Lab Results: Laboratory Tests 11/04/17 0400: Anion Gap 3 L, Estimated GFR > 60, Glucose 100 H, Calcium 7.5 L, Phosphorus 3.6, Magnesium 1.8, Total Bilirubin 0.2, AST 59, ALT 47, Albumin 1.9 L, CBC w Diff NO MAN DIFF REQ, RBC 3.01 L, MCV 87.9, MCH 28.7, MCHC 32.6 L, RDW 29.4 H , MPV 8.8, Gran % 69.4, Lymphocytes % 18.0 L, Monocytes % 7.9, Eosinophils % 4.1, Basophils % 0.6, Absolute Granulocytes 7.2 H, Absolute Lymphocytes 1.9, Absolute Monocytes 0.8 H, Absolute Eosinophils 0.4, Absolute Basophils 0.1 11/03/17 2325: APTT 81 H 11/03/17 1130: APTT 74 H Impression/Plan Impression/Plan Impression/Plan: 1. Progressive respiratory failure - may be multifactorial. CXR shows bilateral opacities suggestive of pulmonary edema. Superimposed pneumonia was considered and patient was treated with 5 days of Unasyn. 2. PVD now with left stump dehiscence and exposed femur - surgery planned or Wednesday. 3. Alcohol dependence. 4. COPD. 5. History of CAD and NSTEMI. 6. LLE including thrombectomy. Recommendations: * Continue with electrolyte repletion as necessary. * Avoid sedating medications. Continue with pain control. * Weaning trials to begin. * Pulmonary edema remains on chest x-ray - continue with diuresis. Continue to follow cardiology recommendations. * Hold off on antibiotics. ID input appreciated. * Continue Heparin drip for therapeutic PTT. * Monitor on CIWA protocol. * MVI/thiamine/folate. * Tube feeds started, at goal. * Vent bundle/DVT prophylaxis/GI prophylaxis at all times. * Continue to monitor in the critical care unit.
--- NOTE | 2017-11-04 09:26 | PN- Cardiology ---
Subjective Subjective: * Patient is responsive and reports shortness of breath. * sinus rhythm Objective Vital Signs and I&Os Vital Signs Date Time Temp Pulse Resp B/P B/P Pulse O2 O2 Flow FiO2 Mean Ox Delivery Rate 11/04 899 40 11/04 799 99 Ventilator 40% 11/04 699 99.5 86 23 98/56 97 Ventilator 40% 11/04 0550 40 11/04 0400 98 Nasal 40% Cannula 11/04 0306 40 11/04 0048 40 11/04 0000 96 Ventilator 40% 11/03 2300 98.5 86 24 98/60 97 Ventilator 40% 11/03 2235 40 11/03 2000 98 Ventilator 40% 11/03 1926 40 11/03 1705 40 11/03 1600 100 Ventilator 40% 11/03 1600 99.2 104 32 110/60 100 Ventilator 40% 11/03 1415 40 11/03 1327 Ventilator 40% 11/03 1200 98 Ventilator 40% 11/03 1143 40 Intake & Output 11/04 1600 11/04 0000 11/03 1600 11/03 0000 Intake Total 5173 484 0802 1032 1043 Output Total 1470 1210 1600 850 550 Balance -465 -264 -260 182 493 Intake, IV 225 226 260 219 204 Intake, Oral 0 Intake, Other 560 560 Intake, Tube 610 568 559 Feeding Intake, Tube 220 160 470 245 280 Irrigant Number 1 Bowel Movements Output, 200 Emesis Output, Urine 1470 1210 1600 650 550 Patient 150 lb Weight Physical Exam: General: WD/WN male in NAD Neck: no JVD, no carotic bruit Heart: RRR Lungs: lungs with upper airway congestion bilaterally ABdomen: soft, NT, +ve bowel sounds Extremities: no edema, Left AKA Assessment/Plan Assessment/Plan * This patient continues to have an X-ray that is consistent with pulmonary edema although it is improving. His BP is borderline. Continue to diurese with Lasix 40mg IV BID with careful monitoring of his blood pressure, BUN, creatinine and postassium. He is on a large dose of Gabapentin which can cause some fluid retention. Assess if this large a dose is needed for his pain. * Replete calcium if its corrected level is low. Continue telemetry? Yes
[2017-11-04 14:47] LABS: PTT 62 SEC (25-37)
[2017-11-04 16:00] VITALS: BP 100/60
[2017-11-04 23:46] LABS: PTT 85 SEC (25-37)
[2017-11-05] VITALS: BP 100/60
[2017-11-05 04:31] LABS: ABSOLUTE BASOPHIL COUNT 0 /CUMM (0.0-0.2); ABSOLUTE EOSINOPHIL COUNT 0.2 /CUMM (0.0-0.7); ABSOLUTE GRANULOCYTE CT 9.4 /CUMM (1.4-6.5); ABSOLUTE LYMPH COUNT 1.9 /CUMM (1.2-3.4); ABSOLUTE MONOCYTE COUNT 0.8 /CUMM (0.10-0.60); BASOPHIL % 0.3 % (0.0-2.0); EOSINOPHIL % 1.7 % (0-5); GRANULOCYTE % 75.7 % (42.2-75.2); HEMATOCRIT 25.9 % (42-52); MEAN CORPUSCULAR HGB CONC 33.2 G/DL (33.0-37.0); MEAN CORPUSCULAR VOLUME 87.4 FL (80.0-94.0); MEAN PLATELET VOLUME 8.5 FL (7.4-10.4); PLATELET COUNT 295 /CUMM (130-400); RBC DISTRIBUTION WIDTH 28.2 % (11.5-14.5); RED BLOOD CELL CT 2.96 /CUMM (4.70-6.10); WHITE BLOOD CELL COUNT 12.5 /CUMM (4.8-10.8)
--- NOTE | 2017-11-05 06:21 | RADIOLOGY REPORT ---
EXAMINATION: XR PORTABLE CHEST CLINICAL INFORMATION: Intubation. COMPARISON: Chest x-ray October, TECHNIQUE: Portable frontal view of the chest was obtained. 5:50 AM FINDINGS: Endotracheal tube catheter 5 cm above tin. Left IJ catheter tip at caval atrial junction. Nasogastric tube in stomach. There is continued increased interstitial lung markings, interstitial edema similar prior chest x-ray. No dense consolidation. No large pleural effusion. IMPRESSION: 1. Endotracheal tube catheter 5 cm above tin. 2. Left IJ catheter tip at caval atrial junction. 3. Nasogastric tube in stomach. 4. Continued increased interstitial lung markings, interstitial edema.
--- NOTE | 2017-11-05 07:48 | PN- Resident CRCU ---
Subjective HPI/CRCU Issues: Acute hypoxic respiratory failure 2/2 PNA and pulmonary edema Leukocytosis L wound dehisence of L AKA Hx of DVT and PVD Alcohol dependence History of CAD Acute blood loss anemia 24 Hour Events: Patient seen and examined at bedside. He is intubated and sedated. He is schedule to go to the OR today for surgery for left wound dehiscience. Currently NPO, and heparin on hold from 8:00am. Vitals past 24 hrs, Tmax: 99.2F; HR: 82- 103; BP: 90-102/58-64; RR: 22-24; Vent settings AC 24; TV: 500mls; FiO2: 35%; PEPP" 5; I's: 2243mls; O: 3400mls. Of note he did not receive Lasix 40mg in the [facility] yesterday. Objective Vital Signs & I&O Last 8 Hrs of Vitals and I&O: Intake & Output 11/05 0800 Intake Total 337 Output Total 550 Balance -213 Intake, IV 204 Intake, Tube 133 Feeding Output, Urine 550 Exam General Appearance: alert, awake, intubated Head: atraumatic Neck: normal inspection, supple Respiratory: b/l transmitted breath sounds, minimal ronchi appreciated. Cardiovascular: regular rate/rhythm Gastrointestinal: normal bowel sounds, soft, non-tender Extremities: left above knee amputation; 1+ edema RLE Cranial Nerves: normal hearing, PERRL Weaning Parameters NIF: 67 Minute Volume: 11.1 Resp rate: 34 Vt: 578 Heart Rate: 97 Weaning Schedule Start Time: 1820 Minute Volume: 12.3 Resp Rate: 27 Vt: 335 Heart Rate: 96 End Time: 1925 Minute Volume: 11.9 Resp Rate: 28 Vt: 412 Heart Rate: 95 Nutrition Nutrition: NPO Current Medications: Current Medications Sig/Lillie Start time Last Medication Dose Route Stop Time Status Admin Acetaminophen 650 MG Q8P PRN 10/26 2115 AC PO Albuterol Sulfate 3 ML Q4P PRN 10/28 1430 AC 10/31 INH 2131 Bisacodyl 10 MG Q12P PRN 11/02 0845 AC 11/03 [place] 1427 Folic Acid 1 MG DAILY 10/27 1000 AC 11/04 PO 0941 Furosemide 40 MG BID 11/03 829 AC 11/04 IV 09 Gabapentin 300 MG TID 10/26 2200 AC 11/04 PO 2115 Heparin Sodium 25,000 UNIT Q24H 10/28 1445 AC 11/04 (Porcine) IV 11/05 0800 1828 Sodium Chloride 500 ML Hydromorphone HCl 0.4 MG Q6P PRN 10/27 0415 AC 11/03 IV 2217 Lorazepam 1 MG Q1 NEEDED PRN 10/29 0830 AC 11/04 IV 1515 Lorazepam 0 Q1P PRN 10/26 2200 AC 10/31 IV 2312 Magnesium Sulfate 1 GM ONCE ONE 11/04 0815 DC 11/04 Dextrose/Water 100 ML IV 11/04 1214 0941 Multivitamins 15 ML DAILY 10/29 1000 AC 11/04 PO 0942 Pantoprazole Sodium 40 MG DAILY 10/29 1000 AC 11/04 IV 0941 Phosphate 250 MG ONCE ONE 11/04 0815 DC 11/04 PO 11/04 0816 1000 Polyethylene Glycol 17 GM DAILY 11/02 1000 AC 11/04 PO 0941 Pravastatin Sodium 20 MG 1700 10/27 1700 AC 11/04 PO 1655 Senna 187 MG AT BEDTIME 11/02 2200 AC 11/04 PO 2115 Thiamine HCl 100 MG DAILY 10/27 1000 AC 11/04 PO 0941 Antibiotics Antibiotics? none CXR Findings: FINDINGS: Endotracheal tube catheter 5 cm above tin. Left IJ catheter tip at caval atrial junction. Nasogastric tube in stomach. There is continued increased interstitial lung markings, interstitial edema similar prior chest x-ray. No dense consolidation. No large pleural effusion. IMPRESSION: 1. Endotracheal tube catheter 5 cm above tin. 2. Left IJ catheter tip at caval atrial junction. 3. Nasogastric tube in stomach. 4. Continued increased interstitial lung markings, interstitial edema. 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 He had left AKA stump infection in 06/2017 s/p I&D, debridement and washout x [address] Crystal who presented to the ED on 10/26/17 with c/o sensation in his left stump where he saw bone coming out of the wound. He was scheduled to be taken to the OR on Wednesday10/29/17, however, his hospital course was complicated by acute hypoxic respiratory failure thought to be multifactorial 2/2 requiring intubation for airway protection. Assessment and Plan: # Acute hypoxic respiratory failure - Multifactorial (aspiration PNA and CHF) - S/P treatment for aspiration PNA with Unasyn with CXR and CT of abdomen c/w edema . - Unasyn was discontinued given that he is afebrile, and leukocytosis is hemoconc?. - Continue diuresis with Lasix 40mg BID IV and F/U CXR tmrw - Of note, urinary antigen for legionella, strep pneumo, and r/o rapid flu - all negative - Urine tox screen -ve for cocaine - Monitorstrict I's and O's. CVP 7-9 - F/U BC X2 (10/28/17), LRC(10/29/17) - yeast, UC (10/28/17) - Try to maintain sats > 92%. - Maintain on aspiration precautions. - Ativan 1mg q1 PRN for anxiety and agitation. #Acute on chronic blood loss anemia - 2/2 ? GI bleed - S/P transfusion 1 PRBC with H&H stable @ 8.6/25.9 - Guaic negative - Goal H&H > 8/24 - CT abdomen/Pelvis r/o retroperitoneal bleed. - Continue to monitor H&H # Leukocytosis - WBC count 12.5 today - leukocytosis most likely ? hemoconcentration, though patient remains afebrile. - ? thoracentesis for the effusions vs abdominal paracentesis? think the effusion and ascites are most likely 2/2 heart failure - Continue to monitor off antibiotics for now. - Continue to monitor WBC. - F/U BCX2: NGTD, UC: NGTD # Hypotension - Stable. - Patient has a RIJ in place, if need will satrt on Levophed to maintain blood pressure. - Maintain MAP of >65mmHg - Meanwhile continue diuresis with Lasix 40mg BID IV. - F/U repeat Echo shows normal EF of 60% with impaired LV relaxation. Mild mitral regurgitation. - Trop and ECG - no evidence of ischemic changes. - ECG: sinues tachycardia, with PACs - Cardio recs appreciated. # PVD - Patient was scheduled to go to the OR today for a left AKA revision given concern for infection. - He is on schedule for surgery with tube feeds on hold and heparin on hold from 8:00am tmrw morning - Resume tube feeds na heparin as per surgery recs. Will start him on gently hydration with D5-1/2NS @ 75mls/hr for 1 bag - F/U vascular surgery recs #Normocytic anemia - 2/2 nutritional deficiencies? - TSH, FT4 WNL folate and Vitamin B12, WNL. - Iron studies c/w anemia of chronic disease #Hypokalemia - Resolved - Most likely 2/2 diuresis - Replete and maintain K> 4.0 #Hypocalcemia - In the setting of low albumin - Corrected is WNL. # Alcohol dependence - On [facility] protocol. - Patient is curerntly intubated, will place on Ativan 1mg Q1PRN for anxiety - alcohol withdrawl. - Meanwhile continue PO Thiamine. #Decubitus ulcers on buttocks - Stage three pressure ulcers on her buttocks bilaterally. - Wound care on board - Diet - Nutrition recs for tube feeds appreciated. - Currently NPO for procedure, will resume post procedure - DVT prophylaxis - Currently on hold Heparin - procedure - Code status - Full Code Problem List: 1. Hypotension 2. Amputated left leg Pain Ratin Tomorrow's Labs & Rationales: cbc- wbc ICU - Cr; Na Plan DVT/Prophylaxis: pharmacological
[2017-11-05 08:00] VITALS: BP 94/60
--- NOTE | 2017-11-05 09:13 | PN- CRCU ---
Subjective HPI/Critical Care Issues: The patient remains awake and following commands. His secretions remain increased however they are clear and he appears improved overall. His oxygen saturations remained stable. He is also hemodynamically stable. There were no overnight events reported. 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 Objective Current Medications: Current Medications Sig/Lillie Start time Last Medication Dose Route Stop Time Status Admin Acetaminophen 650 MG Q8P PRN 10/26 2115 AC PO Albuterol Sulfate 3 ML Q4P PRN 10/28 1430 AC 10/31 INH 2131 Bisacodyl 10 MG Q12P PRN 11/02 0845 AC 11/03 [place] 1427 Dextrose/Sodium 1,000 ML Q13H 11/05 0845 AC Chloride IV 11/05 2144 Folic Acid 1 MG DAILY 10/27 1000 AC 11/04 PO 0941 Furosemide 40 MG BID 11/03 0830 AC 11/04 IV 0941 Gabapentin 300 MG TID 10/26 2200 AC 11/04 PO 2115 Heparin Sodium 25,000 UNIT Q24H 10/28 1445 DC 11/04 (Porcine) IV 11/05 0800 1828 Sodium Chloride 500 ML Hydromorphone HCl 0.4 MG Q6P PRN 10/27 0415 AC 11/03 IV 2217 Lorazepam 1 MG Q1 NEEDED PRN 10/29 0830 AC 11/04 IV 1515 Lorazepam 0 Q1P PRN 10/26 2200 AC 10/31 IV 2312 Magnesium Sulfate 1 GM ONCE ONE 11/04 0815 DC 11/04 Dextrose/Water 100 ML IV 11/04 1214 0941 Multivitamins 15 ML DAILY 10/29 1000 AC 11/04 PO 0942 Pantoprazole Sodium 40 MG DAILY 10/29 1000 AC 11/04 IV 0941 Polyethylene Glycol 17 GM DAILY 11/02 1000 AC 11/04 PO 0941 Pravastatin Sodium 20 MG 1700 10/27 1700 AC 11/04 PO 1655 Senna 187 MG AT BEDTIME 11/02 2200 AC 11/04 PO 2115 Thiamine HCl 100 MG DAILY 10/27 1000 AC 11/04 PO 0941 Vital Signs & I&O Last 24 Hrs of Vitals and I&O: Vital Signs Date Time Temp Pulse Resp B/P B/P Pulse O2 O2 Flow FiO2 Mean Ox Delivery Rate 11/05 804 35 11/05 799 99 Ventilator 30% 02/09 0800 98.9 80 22 94/60 99 Ventilator 30% / 0637 35 02/ 0400 97 Ventilator 35% 11/05 0341 35 / 0059 35 02/ 0000 99 Ventilator 35% / 0000 99.1 82 25 100/60 99 Ventilator 35% 02/08 2215 35 /08 2000 99 Ventilator 35% / 1928 35 02/08 1644 35 / 1600 100 Ventilator 35% / 1600 98.1 103 24 100/60 100 Ventilator 35% / 1431 35 / 1200 99 Ventilator 40% / 1122 40 Intake & Output 11/05 1600 11/05 0800 02/ 0000 Intake Total 337 1080 Output Total 550 650 Balance -213 430 Intake, IV 204 224 Intake, Tube 133 556 Feeding Intake, Tube 300 Irrigant Number 1 Bowel Movements Output, Urine 550 650 Physical Exam General Appearance: no distress, on mechanical ventilation, chronically ill Head: atraumatic, normal appearance Eyes: Bilateral: PERRL Neck: supple Respiratory: decreased breath sounds, crackles, rhonchi Cardiovascular: S1 and S2 heard, mild tachycardia Gastrointestinal: normal bowel sounds, soft, non-tender Extremities: left AKA, bandages in place Skin: normal color, warm/dry Results Last 24 Hrs of Lab Results: Laboratory Tests 11/05/17 0605: pH 7.52 H, pCO2 28 L, pO2 109 H, HCO3 22, ABG O2 Sat (Measured) 98.0, P-50 ( Temp Corrected) N, Carboxyhemoglobin 0.6 L, O2 Concentration % .35, Respiration Rate 24, O2 Delivery Method VENT, Vent Mode A/C, Expiratory Pressure 5, Tidal Volume 500, Phlebotomy Draw Site RIGHT RADIAL 11/05/17 0405: Anion Gap 7, Estimated GFR > 60, Glucose 83, Calcium 7.6 L, Phosphorus 3.3, Magnesium 2.0, Total Bilirubin 0.4, AST 42, ALT 47, Albumin 2.0 L, CBC w Diff NO MAN DIFF REQ, RBC 2.96 L, MCV 87.4, MCH 29.0, MCHC 33.2, RDW 28.2 H, MPV 8.5, Gran % 75.7 H, Lymphocytes % 15.5 L, Monocytes % 6.8, Eosinophils % 1.7, Basophils % 0.3, Absolute Granulocytes 9.4 H, Absolute Lymphocytes 1.9, Absolute Monocytes 0.8 H, Absolute Eosinophils 0.2, Absolute Basophils 0 11/04/17 2330: APTT 85 H 11/04/17 2230: APTT Cancelled 11/04/17 1130: APTT 62 H Last 24 Hrs of Micro Results: Negative cultures. Diagnostic Data CXR Findings: 1. Endotracheal tube catheter 5 cm above tin. 2. Left IJ catheter tip at caval atrial junction. 3. Nasogastric tube in stomach. 4. Continued increased interstitial lung markings, interstitial edema. Impression/Plan Impression/Plan Impression/Plan: 1. Progressive respiratory failure - may be multifactorial. CXR shows bilateral opacities suggestive of pulmonary edema. Superimposed pneumonia was considered and patient was treated with 5 days of Unasyn. 2. PVD now with left stump dehiscence and exposed femur - surgery planned or Wednesday. 3. Alcohol dependence. 4. COPD. 5. History of CAD and NSTEMI. 6. LLE including thrombectomy. Recommendations: * Continue with electrolyte repletion as necessary. * Avoid sedating medications. Continue with pain control. * Weaning trials to begin. * Pulmonary edema remains on chest x-ray - continue with diuresis. Continue to follow cardiology recommendations. * Hold off on antibiotics. ID input appreciated. * Continue Heparin drip for therapeutic PTT. * Monitor on CIWA protocol. * MVI/thiamine/folate. * Tube feeds at goal. * Vent bundle/DVT prophylaxis/GI prophylaxis at all times. * Continue to monitor in the critical care unit.
[2017-11-05 14:32] LABS: ABSOLUTE BASOPHIL COUNT 0.1 /CUMM (0.0-0.2); ABSOLUTE EOSINOPHIL COUNT 0.2 /CUMM (0.0-0.7); ABSOLUTE GRANULOCYTE CT 11.4 /CUMM (1.4-6.5); ABSOLUTE LYMPH COUNT 1.7 /CUMM (1.2-3.4); BASOPHIL % 0.4 % (0.0-2.0); EOSINOPHIL % 1.3 % (0-5); GRANULOCYTE % 79.5 % (42.2-75.2); MEAN CORPUSCULAR HGB 28.4 PG (27.0-31.0); MEAN CORPUSCULAR VOLUME 88.7 FL (80.0-94.0); MEAN PLATELET VOLUME 8.7 FL (7.4-10.4); PLATELET COUNT 379 /CUMM (130-400); RBC DISTRIBUTION WIDTH 28.3 % (11.5-14.5); RED BLOOD CELL CT 3.16 /CUMM (4.70-6.10); WHITE BLOOD CELL COUNT 14.3 /CUMM (4.8-10.8)
[2017-11-05 14:41] LABS: PT 12.8 SEC (9.4-12.5); PTT 39 SEC (25-37)
--- NOTE | 2017-11-05 15:13 | Operative Report ---
Operative/Inv Procedure Report Surgery Date: 11/05/17 Name of Procedure: Revision of left AKA stump and placement of negative pressure dressing Pre-Operative Diagnosis: Dehiscence of left AKA stump with protrusion of the femur through the stump Post-Operative Diagnosis: Same Estimated Blood Loss: 200ML Surgeon/Emergency Technician: MEMO VEGA MD Anesthesia: general endotracheal tube Operative/Procedure Note Note: Patient is a 70-year-old man who underwent left transfemoral amputation several months back for a nonviable gangrenous left leg. He then developed infection of the stump and underwent I&D washout and wound VAC placement. The patient has had multiple falls due to alcohol abuse. Recently, when he was followed in the wound center we noted a protrusion of the femur through the stump. He was admitted to the hospital and soon after respiratory failure and was intubated. He was medically optimized and an informed consent was obtained from his sister to revise the left AKA stump. The nature of the procedure including its possible complications which involves but not limited to bleeding, infection, blood clots, heart attack, injury to nerves and vessels, need for re- intervention were discussed. An informed consent was obtained. Patient was taken to the operating room and placed supine on the table. A timeout was called according to protocol. Perioperative antibiotic had been started. After satisfactory induction of anesthesia, the patient was prepped and draped in standard surgical fashion. Using a scalpel, a fishmouth incision was made on the thigh. The incision was carried down through the subcutaneous tissue and fascia using electrocautery. There was a fair amount of bleeding from all tissues. Femoral artery and veins were identified and ligated and divided. The sciatic nerve was ligated and divided. The stump was copiously irrigated. The femur was then transected with an electric saw. Post proximal part of the femur was cut and was sent to microbiology for culture. The stump was then sent off to pathology. The stump was then copiously irrigated. Hemostasis was obtained. A few 2-0 Vicryl suture in an interrupted fashion was placed to approximate the muscle over the bone. Then lateral and medial aspect of the wound was approximated with 3-0 Vicryl suture in an interrupted fashion. The skin in these areas were stapled. The middle of the wound was left open and a wound VAC was placed. There was good at the negative pressure. The count at the end of the case was correct. The patient was then taken to the ICU in stable condition.
[2017-11-05 16:00] VITALS: BP 140/74
[2017-11-06 05:22] LABS: ABSOLUTE BASOPHIL COUNT 0.1 /CUMM (0.0-0.2); ABSOLUTE EOSINOPHIL COUNT 0 /CUMM (0.0-0.7); ABSOLUTE GRANULOCYTE CT 21.1 /CUMM (1.4-6.5); ABSOLUTE LYMPH COUNT 1.7 /CUMM (1.2-3.4); ABSOLUTE MONOCYTE COUNT 1.5 /CUMM (0.10-0.60); BASOPHIL % 0.3 % (0.0-2.0); EOSINOPHIL % 0 % (0-5); GRANULOCYTE % 86.3 % (42.2-75.2); MEAN CORPUSCULAR HGB 28.8 PG (27.0-31.0); MEAN CORPUSCULAR HGB CONC 32.7 G/DL (33.0-37.0); MEAN PLATELET VOLUME 8.7 FL (7.4-10.4); PLATELET COUNT 484 /CUMM (130-400); RBC DISTRIBUTION WIDTH 27.4 % (11.5-14.5); RED BLOOD CELL CT 2.84 /CUMM (4.70-6.10); WHITE BLOOD CELL COUNT 24.4 /CUMM (4.8-10.8)
[2017-11-06 08:00] VITALS: BP 104/52
--- NOTE | 2017-11-06 08:26 | PN- Resident CRCU ---
Subjective HPI/CRCU Issues: Acute hypoxic respiratory failure 2/2 PNA and pulmonary edema Hypotension - on pressors Leukocytosis L wound dehisence of L AKA Hx of DVT and PVD Alcohol dependence History of CAD Acute blood loss anemia 24 Hour Events: Patient seen and examined at bedside. He underwent surgery yesterday for his left worund dehisicince and has a wound vac in place. Of note he was hypotensive overnight and started on Levophed currently on 11mcg/ hr. Vitals past 24 hrs A/F; BP: 73-97; SR;RR: 22-31; BP: 80-142/57-78; vent settings : AC; RR: 24; TV: 500mls; FiO2: 30 Objective Vital Signs & I&O Last 8 Hrs of Vitals and I&O: Vital Signs Date Time Temp Pulse Resp B/P B/P Pulse O2 O2 Flow FiO2 Mean Ox Delivery Rate 11/06 0600 35 11/06 0355 35 11/06 0300 87 24 78/44 11/06 0135 35 11/05 2359 95 Ventilator 35% 11/05 2213 35 11/05 2000 98 Ventilator 35% 11/05 1911 35 11/05 1650 35 11/05 1600 97 Ventilator 35% 11/05 1600 97.2 98 24 140/74 97 Ventilator 35% 11/05 1416 Ventilator 40% 11/05 1200 97 Ventilator 35% 11/05 1047 35 Intake & Output 11/06 1600 11/06 0800 11/06 0000 Intake Total 1092 685 Output Total 710 400 Balance 382 285 Intake, IV 752 600 Intake, Other 60 Intake, Tube 120 25 Feeding Intake, Tube 220 Irrigant Output, 50 Drainage Output, Urine 660 400 Exam General Appearance: awake, intubated, lethargic Head: atraumatic Ears, Nose, Throat: normal pharynx Neck: normal inspection, supple Respiratory: b/l transmitted breath sounds, mild ronchi in bases Cardiovascular: regular rate/rhythm Gastrointestinal: normal bowel sounds, soft, non-tender Extremities: left AKA witha wound vac in place; RLE ~ no edema Cranial Nerves: normal hearing, PERRL Weaning Parameters NIF: 67 Minute Volume: 11.1 Resp rate: 34 Vt: 578 Heart Rate: 97 Weaning Schedule Start Time: 1914 Minute Volume: 12.2 Resp Rate: 28 Vt: 450 Heart Rate: 96 End Time: 2210 Minute Volume: 10 Resp Rate: 23 Vt: 525 Heart Rate: 98 Central Line Site: L IJ Date In: 10/29/17 Need for Catheter: pressors Nutrition Nutrition: tube feeding Current Medications: Current Medications Sig/Lillie Start time Last Medication Dose Route Stop Time Status Admin Acetaminophen 650 MG Q8P PRN 10/26 2115 AC PO Albuterol Sulfate 3 ML Q4P PRN 10/28 1430 AC 10/31 INH 2131 Bisacodyl 10 MG Q12P PRN 11/02 0845 AC 11/03 [place] 1427 Cefazolin Sodium 1,000 MG IQ8 11/05 2200 DC 11/06 IV 11/06 0801 0753 Dextrose/Sodium 1,000 ML Q13H 11/05 0845 DC 11/05 Chloride IV 11/05 2144 0845 Folic Acid 1 MG DAILY 10/27 1000 AC 11/04 PO 0941 Furosemide 40 MG BID 11/03 0830 AC 11/05 IV 2206 Gabapentin 300 MG TID 10/26 2200 AC 11/05 PO 2206 Hydromorphone HCl 0.4 MG Q6P PRN 10/27 0415 AC 11/06 IV 0458 Lorazepam 1 MG Q1 NEEDED PRN 10/29 0830 AC 11/04 IV 1515 Lorazepam 0 Q1P PRN 10/26 2200 AC 11/05 IV 2116 Multivitamins 15 ML DAILY 10/29 1000 AC 11/04 PO 0942 Norepinephrine 4 MG Q24H 11/06 0230 AC 11/06 Dextrose/Water 250 ML IV 0300 Pantoprazole Sodium 40 MG DAILY 10/29 1000 AC 11/05 IV 0954 Polyethylene Glycol 17 GM DAILY 11/02 1000 AC 11/04 PO 0941 Pravastatin Sodium 20 MG 1700 10/27 1700 AC 11/05 PO 1700 Senna 187 MG AT BEDTIME 11/02 2200 AC 11/05 PO 2206 Thiamine HCl 100 MG DAILY 10/27 1000 AC 11/04 PO 0941 CXR Findings: FINDINGS: Endotracheal tube tip is 3 cm above the tin. Enteric tube is difficult to demonstrate beyond the diaphragm secondary to technique of this study. Left IJ central venous catheter tip terminates at the cavoatrial junction in unchanged position. Diffuse interstitial opacities with superimposed vague right midlung airspace opacity remain similar to the prior study. No pleural effusion or pneumothorax. Cardiac silhouette and osseous structures are stable. IMPRESSION: Endotracheal tube has been advanced, now 3 cm above the tin. Left IJ central venous catheter in unchanged position. Enteric tube is difficult to demonstrate beyond the diaphragm secondary to technique of this study. Stable appearing diffuse interstitial opacities and right midlung airspace opacity. 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 He had left AKA stump infection in 06/2017 s/p I&D, debridement and washout x [address] Crystal who presented to the ED on 10/26/17 with c/o sensation in his left stump where he saw bone coming out of the wound. He was scheduled to be taken to the OR on Wednesday10/29/17, however, his hospital course was complicated by acute hypoxic respiratory failure thought to be multifactorial 2/2 requiring intubation for airway protection. Assessment and Plan: # Acute hypoxic respiratory failure - Multifactorial (aspiration PNA and CHF) - S/P treatment for aspiration PNA with Unasyn with CXR and CT of abdomen c/w edema . - Unasyn was discontinued given that he is afebrile, and leukocytosis is reactionary - surgery yesterday. - Hold Lasix today given hypotenion, and he doesnt seem volume overloaded - Of note, urinary antigen for legionella, strep pneumo, and r/o rapid flu - all negative - Urine tox screen -ve for cocaine - Monitorstrict I's and O's. CVP 7-9 - F/U BC X2 (10/28/17): NGTD, LRC(10/29/17) - yeast, UC (10/28/17) - Try to maintain sats > 92%. - Maintain on aspiration precautions. - Ativan 1mg q1 PRN for anxiety and agitation. #Acute on chronic blood loss anemia - S/P transfusion 1 PRBC with H&H stable @ 8.2/25.0 - Guaic negative - Goal H&H > 8/24 - CT abdomen/Pelvis r/o retroperitoneal bleed. - Continue to monitor H&H # Leukocytosis - WBC count 24 today - leukocytosis most likely ? reactionary as he underwent suregry yesterday, though patient remains afebrile. - ? thoracentesis for the effusions vs abdominal paracentesis? think the effusion and ascites are most likely 2/2 heart failure - Patient received Ancef x2 doses as per surgery. Continue to monitor off antibiotics for now. - Continue to monitor WBC. - F/U BCX2: NGTD, UC: NGTD # Hypotension - Stable. - Patient has a lIJ in place, continue Levophed to maintain mean arterial blood pressure of > 65mmHg. - Meanwhile hold diuresis today - F/U repeat Echo shows normal EF of 60% with impaired LV relaxation. Mild mitral regurgitation. - Trop and ECG - no evidence of ischemic changes. - ECG: sinues tachycardia, with PACs - Cardio recs appreciated. # PVD - Patient went to the OR yesterday for a left AKA revision,and has a wound vac in place - Will restart Heparin @15:00 today - Continue wound vac - F/U vascular surgery recs #Normocytic anemia - 2/2 nutritional deficiencies? - TSH, FT4 WNL folate and Vitamin B12, WNL. - Iron studies c/w anemia of chronic disease #Hypocalcemia - In the setting of low albumin - Corrected is WNL. # Alcohol dependence - On CIWA protocol. - Patient is curerntly intubated, will place on Ativan 1mg Q1PRN for anxiety - alcohol withdrawl. - Meanwhile continue PO Thiamine. #Decubitus ulcers on buttocks - Stage three pressure ulcers on her buttocks bilaterally. - Wound care on board - Diet - Nutrition recs for tube feeds appreciated. - Tube feeds resumed - DVT prophylaxis - Resume Heparin today - Code status - Full Code Problem List: 1. Hypotension 2. Amputated left leg Pain Ratin Tomorrow's Labs & Rationales: CBC - WBC ICU - Na; Cr Plan DVT/Prophylaxis: pharmacological
--- NOTE | 2017-11-06 09:57 | PN- Pulmonary ---
Subjective HPI/Critical Care Issues: Patient remains pressor dependent. He is mildly sedated after dilaudid he's become hyponatremic Objective Current Medications: Current Medications Sig/Lillie Start time Last Medication Dose Route Stop Time Status Admin Acetaminophen 650 MG Q8P PRN 10/26 2115 AC PO Albuterol Sulfate 3 ML Q4P PRN 10/28 1430 AC 10/31 INH 2131 Artificial Tears 2 GTT TID 11/06 1000 AC OPH Bisacodyl 10 MG Q12P PRN 11/02 0845 AC 11/03 [place] 1427 Cefazolin Sodium 1,000 MG IQ8 11/05 2200 DC 11/06 IV 11/06 0801 0753 Dextrose/Sodium 1,000 ML Q13H 11/05 0845 DC 11/05 Chloride IV 11/05 2144 0845 Folic Acid 1 MG DAILY 10/27 1000 AC 11/06 PO 0934 Furosemide 40 MG BID 11/03 0830 AC 11/05 IV 2206 Gabapentin 300 MG TID 10/26 2200 AC 11/06 PO 0934 Hydromorphone HCl 0.4 MG Q6P PRN 10/27 0415 AC 11/06 IV 0458 Lorazepam 1 MG Q1 NEEDED PRN 10/29 0830 AC 11/04 IV 1515 Lorazepam 0 Q1P PRN 10/26 2200 AC 11/05 IV 2116 Magnesium Sulfate 1 GM Q2H 11/06 0900 AC 11/06 Dextrose/Water 100 ML IV 11/06 1259 0920 Multivitamins 15 ML DAILY 10/29 1000 AC 11/06 PO 0932 Norepinephrine 4 MG Q5H 11/06 0915 AC 11/06 Sodium Chloride 250 ML IV 0931 Norepinephrine 4 MG Q13H 11/06 09 DC Sodium Chloride 250 ML IV 11/06 1159 Norepinephrine 4 MG Q24H 11/06 0230 DC 11/06 Dextrose/Water 250 ML IV 0300 Pantoprazole Sodium 40 MG DAILY 10/29 1000 AC 11/06 IV 0932 Phosphate 250 MG PC AND AT BEDTIME 11/06 09 AC PO Polyethylene Glycol 17 GM DAILY 11/02 1000 AC 11/06 PO 0934 Pravastatin Sodium 20 MG 1700 10/27 1700 AC 11/05 PO 1700 Senna 187 MG AT BEDTIME 11/02 2200 AC 11/05 PO 2206 Thiamine HCl 100 MG DAILY 10/27 1000 AC 02/10 PO 0934 Vital Signs & I&O Last 24 Hrs of Vitals and I&O: Vital Signs Date Time Temp Pulse Resp B/P B/P Pulse O2 O2 Flow FiO2 Mean Ox Delivery Rate 11/06 0844 35 11/06 0600 35 11/06 0355 35 11/06 0300 87 24 78/44 11/06 0135 35 11/05 2359 95 Ventilator 35% 11/05 2213 35 11/05 2000 98 Ventilator 35% 11/05 1911 35 11/05 1650 35 11/05 1600 97 Ventilator 35% 11/05 1600 97.2 98 24 140/74 97 Ventilator 35% 11/05 1416 Ventilator 40% 11/05 1200 97 Ventilator 35% 11/05 1047 35 Intake & Output 11/06 1600 11/06 0800 11/06 0000 Intake Total 1092 685 Output Total 710 400 Balance 382 285 Intake, IV 752 600 Intake, Other 60 Intake, Tube 120 25 Feeding Intake, Tube 220 Irrigant Output, 50 Drainage Output, Urine 660 400 Saturation FiO2 35% 95% is developed a significant respiratory alkalosis temp is chest shows occasional rhonchi cardiac exam shows regular S1 and S2 without murmurs Impression/Plan Impression/Plan Impression/Plan: 62-year-old status post revision of amputation remains pressor dependent now with respiratory alkalosis leukocytosis and hyponatremia Recommendations: Decreased respiratory rate to 18 and obtain blood gas. Change IV fluids to normal saline. Reculture and repeat chest x-ray with leukocytosis. Ask vascular/cardiology regarding need for further anticoagulation. If not DVT prophylaxis
--- NOTE | 2017-11-06 10:03 | RADIOLOGY REPORT ---
EXAMINATION: XR PORTABLE CHEST CLINICAL INFORMATION: Follow-up status post intubation. COMPARISON: Chest x-ray 11/05/2017. TECHNIQUE: Portable frontal view of the chest was obtained. FINDINGS: Endotracheal tube tip is 3 cm above the tin. Enteric tube is difficult to demonstrate beyond the diaphragm secondary to technique of this study. Left IJ central venous catheter tip terminates at the cavoatrial junction in unchanged position. Diffuse interstitial opacities with superimposed vague right midlung airspace opacity remain similar to the prior study. No pleural effusion or pneumothorax. Cardiac silhouette and osseous structures are stable. IMPRESSION: Endotracheal tube has been advanced, now 3 cm above the tin. Left IJ central venous catheter in unchanged position. Enteric tube is difficult to demonstrate beyond the diaphragm secondary to technique of this study. Stable appearing diffuse interstitial opacities and right midlung airspace opacity.
[2017-11-06 12:00] VITALS: BP 100/54
--- NOTE | 2017-11-06 14:51 | RADIOLOGY REPORT ---
EXAMINATION: XR PORTABLE CHEST CLINICAL INFORMATION: OG tube placement. COMPARISON: Earlier on same day and studies dating back to October 28, 2017 TECHNIQUE: Portable frontal view of the chest was obtained. FINDINGS: There is motion artifact present. Endotracheal tube is seen with tip approximately 4 cm above the tin. Left jugular central venous catheter seen in place with tip in the region of the distal superior vena cava. Enteric tube is seen traversing to the gastroesophageal junction with its tip lying in the gastric fundus. There is diffuse bilateral interstitial lung disease. No pneumothorax is appreciated. No significant pleural effusion. Heart normal size. No evidence of pulmonary edema. IMPRESSION: Orogastric tube seen with tip overlying the fundus of the stomach. Endotracheal tube and central venous catheter in place. Diffuse interstitial lung disease.
[2017-11-06 17:52] LABS: ABSOLUTE BASOPHIL COUNT 0 /CUMM (0.0-0.2); ABSOLUTE EOSINOPHIL COUNT 0 /CUMM (0.0-0.7); ABSOLUTE GRANULOCYTE CT 17.4 /CUMM (1.4-6.5); ABSOLUTE LYMPH COUNT 1.7 /CUMM (1.2-3.4); ABSOLUTE MONOCYTE COUNT 1.5 /CUMM (0.10-0.60); BASOPHIL % 0.2 % (0.0-2.0); EOSINOPHIL % 0 % (0-5); MEAN CORPUSCULAR HGB 29.1 PG (27.0-31.0); MEAN CORPUSCULAR HGB CONC 32.9 G/DL (33.0-37.0); MEAN CORPUSCULAR VOLUME 88.3 FL (80.0-94.0); MEAN PLATELET VOLUME 7.9 FL (7.4-10.4); PLATELET COUNT 401 /CUMM (130-400); RBC DISTRIBUTION WIDTH 26.1 % (11.5-14.5); WHITE BLOOD CELL COUNT 20.7 /CUMM (4.8-10.8)
[2017-11-06 18:03] LABS: GRANULOCYTE % 84.1 % (42.2-75.2)
--- NOTE | 2017-11-06 18:34 | Transfer of Care Summary ---
Hospital Course Course Hospital Course: Mr. Flores is a 62-year-old male with PMH of alcohol abuse, asthma, recurrent DVT on Eliquis, h/o UGI bleed, GERD, neuropathy, NSTEMI, PVD s/p left popliteal and SFA thrombectomy as well as a compartment fasciotomy, with eventual recovery and discharge, but with recurrent ischemia to the left leg requiring a left AKA on 05/28/2017. He had left AKA stump infection in 06/2017 s/p I&D, debridement and washout x [address] Crystal. He presented to the ED on 10/26/17 with c/o sensation in his left stump where he saw bone coming out of the wound. He was initially admitted to [facility] and empirically started on Unasyn for cellulitis at the left stump site as well as leucoytosis, which was discontinued after curbsiding ID. He was also started on Heaprin for AC and scheduled to be taken to the OR on Wednesday10/29/17, however, a day prior to surgery (10/28/17), his hospital course was complicated by acute hypoxic respiratory failure attributed to CHF requiring intubation for airway protection on 10/29/17. His CXR was cw PNA and underlying pulmonary venous congestion. An echo was done which showed impaired LV relaxation with an EF of 60%. ACS was r/o. He continued to remain intubated since. Surgery was held off initially given poor respiratory and hemodynamic status with BP hovering around the 90-100's, and treatment for aspiration PNA with Unasyn (10/28/17 - 11/02/17). A left IJ was placed on 10/29/17 in anticipation of pressors (given concern for sepsis 2/ 2 aspiration PNA), however, the patient never required initiation of pressors as his clinical condition continued to improve with administration of Abx, and aggresive diuresis as per Cardio recs. On his 7th post admission day, patient had a drop in his H&H 8.1-->7.4. A CT of abdomen/ pelvis was done which r/o retroperitoneal bleed, and patient was trasnfused with a unit of PRBC given he was on AC and had to be taken to the OR later during the week for revisional surgery. Patient was ultimately deemed stable to be taken to the OR a week later on 11/05 for revision of his left AKA stump, and wound vac placement. Heparin was held the morning of surgery on 11/05/17 and was to remain on hold until 24 hrs until after the procedure (11/06/17), however, there was concern for increased bleeding at the site of wound vac placement post 24 hrs and AC was not restarted until 11/07/17. Postoperatively, pateint's blood pressure dropped possibly from sepsis 2/2 ostemyelitis as OR cultures show growth of gram positive cocci, and GNR. He was started on Levophed to maintain a MAP of 65mHg. He also had a drop in his H&H from 9-->8.2-->7.6, amd was transfused with another unit of PRBC. In the last few days, his eye exam has findings s/o left corneal ulcer for which he is on topical abx, as per Dr. Putnam. He should be monitored closely, for resolution since there is a possibility of uveitis, and risk of opthalmitis which is an emergency. Informed Dr. Putnam of the changes that he has increased haziness in his left eye, and he would evaluate the pt in the am. In regards to his antibiotics, his cultures showed growth of multiple organisms including proteus, enterococcus which are damon senstive. He was started on vanc+ ceftaz which was changed to pip/bhupendra to cover for proteus, enterococcus( OR cultures), and pseudomonas (LRC) for the tx of Osteomyelitis. Plan to place a picc line, for halfway abx. Complications: Please see above. Assessment/Plan: # Acute hypoxic respiratory failure requiring intubation s/p extubation on 11/09 - Multifactorial (2/2 aspiration PNA and CHF) - S/P treatment for aspiration PNA with Unasyn. - Continue to hold Lasix given hypotension - Of note, urinary antigen for legionella, strep pneumo, and r/o rapid flu - all negative. - Monitor strict I's and O's, and CVP - F/U BC X2 (10/28/17): NGTD, LRC(10/29/17) - yeast, UC (10/28/17) - Try to maintain sats > 92%. - Continue to maintain on aspiration precautions. - Ativan 1mg q1 PRN for anxiety and agitation. #Acute on chronic blood loss anemia - 2/2 bleeding at site of surgery? - S/P transfusion 2 PRBC with H&H stable @ 8.2/24.9 - Of note, patient was guaic negative - CT abdomen/Pelvis was done on 11/01/17 which r/o retroperitoneal bleed. - Goal H&H > 8/24. Continue to monitor H&H # Sepsis 2/2 osteomyelitis - Patient had persisent eukocytosis most likely 2/2 osteomyelitis. Of note he received Ancef x2 doses as per surgery. - Initial blood cultures were negative but OR cultures growing G -ve rods, enterococcus, diphtheroids, proteus - Repeat sputum cultures growing Pseudomonas - ? colonization - Considering his elevated white count post op and his positive OR cultures, he was empirically staretd on vancomycin and Ceftazidime and switched to Zosyn to cover enterococcus, Pseudomonas and Proteus - Continue to monitor WBC. - F/U ID recs - Patient will need a PICC line going forward for his osteomyelitis #Left eye ? corneal opacity - Patient was noticed to have corneal opacity of his left eye - He was evaluated by ophthamlmology and started on topical abx. - Monitor closely for uveitis and risk of opthalmitis. - F/U opthal recs # Hypotension - 2/2 sepsis from oseomyelitis - Off Pressors - Diuresis PRN - Echo shows normal EF of 60% with impaired LV relaxation. Mild mitral regurgitation. # PVD - Patient went to the OR on 11/05/17 for a left AKA revision,and has a wound vac in place - Continue AC for DVT - Continue wound vac - F/U vascular surgery recs #Normocytic anemia - 2/2 nutritional deficiencies? - TSH, FT4 WNL folate and Vitamin B12, WNL. - Iron studies c/w anemia of chronic disease #Hypocalcemia - In the setting of low albumin - Corrected is WNL. # Alcohol dependence - On CIWA protocol. - Consider Ativan 1mg Q1PRN for anxiety;/ alcohol - Meanwhile continue PO Thiamine. #Decubitus ulcers on buttocks - Stage three pressure ulcers on her buttocks bilaterally. - Wound care on board - Diet - Was on tube feeds which were discontinued s/p extubation. - patient is currently NPO. - F/U swallow eval in AM and advance diet as tolerated - DVT - On Lovenox 100mg daily. - Code status - Full Code - Code status - Full Code
[2017-11-07] VITALS: BP 90/50
[2017-11-07 05:29] LABS: ABSOLUTE BASOPHIL COUNT 0 /CUMM (0.0-0.2); ABSOLUTE EOSINOPHIL COUNT 0 /CUMM (0.0-0.7); ABSOLUTE GRANULOCYTE CT 14.5 /CUMM (1.4-6.5); ABSOLUTE LYMPH COUNT 1.7 /CUMM (1.2-3.4); ABSOLUTE MONOCYTE COUNT 1.6 /CUMM (0.10-0.60); BASOPHIL % 0 % (0.0-2.0); EOSINOPHIL % 0.1 % (0-5); GRANULOCYTE % 81.1 % (42.2-75.2); HEMATOCRIT 26.4 % (42-52); MEAN CORPUSCULAR HGB 28.6 PG (27.0-31.0); MEAN CORPUSCULAR HGB CONC 32.8 G/DL (33.0-37.0); MEAN CORPUSCULAR VOLUME 87.3 FL (80.0-94.0); MEAN PLATELET VOLUME 8.1 FL (7.4-10.4); PLATELET COUNT 382 /CUMM (130-400); RBC DISTRIBUTION WIDTH 24.7 % (11.5-14.5); RED BLOOD CELL CT 3.02 /CUMM (4.70-6.10); WHITE BLOOD CELL COUNT 17.9 /CUMM (4.8-10.8)
[2017-11-07 08:00] VITALS: BP 100/60
--- NOTE | 2017-11-07 09:06 | PN- Resident CRCU ---
Subjective HPI/CRCU Issues: Acute hypoxic respiratory failure 2/2 PNA and pulmonary edema Hypotension - on pressors Leukocytosis L wound dehisence of L AKA Hx of DVT and PVD Alcohol dependence History of CAD Acute blood loss anemia 24 Hour Events: Patient seen and examined at bedside. He underwent surgery 2 days ago for his left worund dehisicince and has a wound vac in place. He was hypotensive post operatively and started on Levophed-currently at 6 mcg/hr. Complains of pain 5/10 intensity at left AKA stump. He also has mild pain in his left eye with redness. He denies chest pain, palpitations, abdominal pain. He was constipated but had a bowel movement this morning. Vitals past 24 hrs A/F; temperature 98.490 9.2F, heart rate 6294 bpm, SR, respiratory rate 1927, but pressure 35640/5261 mmHg ; vent settings: AC; RR: 18; TV: 500mls; FiO2: 30%, PEEP 5. Objective Vital Signs & I&O Last 8 Hrs of Vitals and I&O: Vital Signs Date Time Temp Pulse Resp B/P B/P Pulse O2 O2 Flow FiO2 Mean Ox Delivery Rate 11/07 1357 79 98/68 11/07 1355 30 11/07 1200 98 Ventilator 30% 11/07 1200 98.6 85 21 98/68 98 Ventilator 30% 11/07 0950 30 11/07 0800 99 Ventilator 30% 11/07 0800 98.1 79 20 100/60 99 Ventilator 30% 11/07 0611 30 11/07 0400 100 Ventilator 30% 11/07 0318 30 11/07 0142 98.3 89 20 104/50 11/07 0023 30 11/07 0000 98.3 89 23 90/50 99 Ventilator 30% 11/07 0000 99 Ventilator 30% 11/06 2216 30 11/06 2132 87 23 14/59 11/06 2030 30 11/06 2000 95 Ventilator 30% Intake & Output 11/07 1600 11/07 0800 11/07 0000 Intake Total 1053 652 757 Output Total 1000 1090 1315 Balance 53 -633 -920 Intake, IV 324 150 117 Intake, Tube 359 392 280 Feeding Intake, Tube 370 110 360 Irrigant Number 1 Bowel Movements Output, 0 25 Drainage Output, Urine 1000 1090 1290 Exam General Appearance: no apparent distress, alert, awake, intubated Head: atraumatic, Left conjunctiva inflammed with some yellow discharge Ears, Nose, Throat: normal pharynx, normal ENT inspection Neck: normal inspection, supple Respiratory: normal breath sounds, chest non-tender, lungs clear Cardiovascular: regular rate/rhythm, S1-S2 normal Gastrointestinal: normal bowel sounds, soft, non-tender, no organomegaly Extremities: left AKA stump clean collected to a wound VAC draining sanguineous fluid, right leg no edema Cranial Nerves: normal hearing, PERRL, no facial asymmetry Skin: intact, normal color Skin Temp/Moisture Exam: Warm/Dry Sepsis Skin Exam (color): Normal for Ethnicity Weaning Parameters NIF: 67 Minute Volume: 11.1 Resp rate: 34 Vt: 578 Heart Rate: 97 Weaning Schedule Start Time: 1915 Minute Volume: 12.2 Resp Rate: 28 Vt: 450 Heart Rate: 96 End Time: 2210 Minute Volume: 10 Resp Rate: 23 Vt: 525 Heart Rate: 98 Current Medications: Current Medications Sig/Lillie Start time Last Medication Dose Route Stop Time Status Admin Acetaminophen 650 MG Q8P PRN 10/26 2115 AC PO Albuterol Sulfate 3 ML BID 11/06 2200 AC 11/07 INH 0947 Albuterol Sulfate 3 ML Q4P PRN 10/28 1430 AC 10/31 INH 2131 Artificial Tears 2 GTT TID 11/06 1000 AC 11/07 OPH 1624 Bisacodyl 10 MG Q12P PRN 11/02 0845 AC 11/07 ME 1040 Folic Acid 1 MG DAILY 10/27 1000 AC 11/07 PO 0909 Furosemide 40 MG BID 11/03 0830 AC 11/07 IV 0909 Gabapentin 300 MG TID 10/26 2200 AC 11/07 PO 1623 Heparin Sodium 25,000 UNIT Q24H 11/07 1500 AC 11/07 (Porcine) IV 1624 Sodium Chloride 500 ML Hydromorphone HCl 0.4 MG Q6P PRN 10/27 0415 AC 11/07 IV 1500 Lorazepam 1 MG Q1 NEEDED PRN 10/29 0830 AC 11/04 IV 1515 Lorazepam 0 Q1P PRN 10/26 2200 AC 11/05 IV 2116 Magnesium Sulfate 1 GM ONCE ONE 11/07 0915 DC 11/07 Dextrose/Water 100 ML IV 11/07 1314 1039 Multivitamins 15 ML DAILY 10/29 1000 AC 11/07 PO 0910 Norepinephrine 4 MG Q10H 11/07 1300 AC 11/07 Sodium Chloride 250 ML IV 1357 Norepinephrine 4 MG Q5H 11/06 0915 DC 11/07 Sodium Chloride 250 ML IV 0142 Pantoprazole Sodium 40 MG DAILY 10/29 1000 AC 11/07 IV 0910 Phosphate 250 MG PC AND AT BEDTIME 11/06 0900 AC 11/07 PO 1209 Polyethylene Glycol 17 GM DAILY 11/02 1000 AC 11/07 PO 0909 Potassium Chloride 40 MEQ BID 11/07 2200 AC PO 11/08 1001 Potassium Chloride 40 MEQ ONCE ONE 11/07 0900 DC 11/07 PO 11/07 0901 1210 Pravastatin Sodium 20 MG 1700 10/27 1700 AC 11/07 PO 1623 Scopolamine HBr 1 PAT Q72H 11/06 1400 AC 11/06 TOP 1535 Senna 187 MG AT BEDTIME 11/02 2200 AC 11/06 PO 2136 Sodium Chloride 1,000 ML Q20H 11/07 1515 AC 11/07 IV 11/08 1114 1615 Thiamine HCl 100 MG DAILY 10/27 1000 AC 11/07 PO 0909 Impression/Plan Impression/Problem List Impression: In summary this is a 62-year-old male with PMH of alcohol abuse, asthma and recurrent DVT on Eliquis, h/o UGI bleed, GERD, neuropathy, NSTEMI, left lower extremity ischemia, requiring a left popliteal and SFA thrombectomy as well as a compartment fasciotomy, with eventual recovery and discharge, but with recurrent ischemia to the left leg requiring a left AKA on 05/28/2017. He had left AKA stump infection in 06/2017 s/p I&D, debridement and washout x [address] Crystal who presented to the ED on 10/26/17 with c/o sensation in his left stump where he saw bone coming out of the wound. He was scheduled to be taken to the OR on Wednesday10/29/17, however, his hospital course was complicated by acute hypoxic respiratory failure thought to be multifactorial 2/2 requiring intubation for airway protection. Assessment and Plan: 1# Acute hypoxic respiratory failure - Multifactorial secondary to aspiration PNA and CHF - S/P treatment for aspiration PNA with Unasyn with CXR and CT of abdomen c/w edema . - Continue IV Lasix 40 mg every 12 hours and he doesnt seem volume overloaded - Of note, urinary antigen for legionella, strep pneumo, and r/o rapid flu - all negative - Monitorstrict I's and O's. CVP 7-9 - Try to maintain sats > 92%. - Maintain on aspiration precautions - Ativan 1mg q1 PRN for anxiety and agitation. 2 # Leukocytosis - WBC count remains elevated at 24 today - Initial blood cultures were negative but OR cultures from 11/05 are growing G - ve rods and G + cocci - Repeat blood urine and sputum cultures today - Considering his elevated white count post op 2 days ago and his positive OR cultures will start empiric vancomycin and Ceftazidime pending final identification of OR cultures - I spoke with [facility] consultant Anand Quezada MD and he will see in the morning 3 # Hypotension - Patient was hypotensive 2 days ago and started on Levophed currently running at 6 mcg/min - Patient has a Left IJ in place, continue Levophed to maintain mean arterial blood pressure of > 65mm Hg -Continue diuresis with IV Lasix 40 mg Q 12 hrs - F/U repeat Echo shows normal EF of 60% with impaired LV relaxation. Mild mitral regurgitation. - Follow cardiology recommendations 4 #Acute on chronic blood loss anemia - S/P transfusion 1 PRBC with H&H stable @ 8.6/26.4 - Guaic negative - Goal H&H > 8/24 - CT abdomen/Pelvis ruled out retroperitoneal bleed. - Continue to monitor H&H 5# PVD - Patient went to the OR 48 hours ago for a left AKA revision,and has a wound vac in place - Heparin has been held since OR 48 hours ago - Will restart and decannulation with IV Heparin @15:00 today - Continue wound vac - F/U vascular surgery recs 6#Normocytic anemia - 2/2 nutritional deficiencies? - TSH, FT4 WNL folate and Vitamin B12, WNL. - Iron studies c/w anemia of chronic disease 7# Hyponatremia/Hypocalcemia - His sodium is 130 today, we'll start IV normal saline at 30 mL an hour - Continue IV Lasix 40 mg twice a day for freewater excretion - Hypocalcemia is in the setting of low albumin - Corrected is WNL. 8# Alcohol dependence - On CIND protocol. - Patient is curerntly intubated, will place on Ativan 1mg Q1PRN for anxiety - alcohol withdrawl. - Meanwhile continue PO Thiamine. 9#Decubitus ulcers on buttocks - Stage three pressure ulcers on her buttocks bilaterally. - Wound care on board 10# Conjunctivitis left eye - Start ciprofloxacin eyedrops 2 drops 4 times daily - Diet - Nutrition recs for tube feeds appreciated. - Tube feeds resumed - DVT prophylaxis - Resumed subcut Heparin today - Code status - Full Code Problem List: 1. Infected surgical wound 2. Amputated left leg 3. Leukocytosis 4. Hyponatremia Pain Ratin Pain Location: Left AKA stump Tomorrow's Labs & Rationales: ICU bundle for critical inpatient and CBC for anemia and leukocytosis Plan DVT/Prophylaxis: pharmacological Plan DVT/Prophylaxis: pharmacological
--- NOTE | 2017-11-07 09:26 | PN- Pulmonary ---
Subjective HPI/Critical Care Issues: Patient is awake alert comfortable on mechanical ventilation the remains pressor dependent Objective Current Medications: Current Medications Sig/Lillie Start time Last Medication Dose Route Stop Time Status Admin Acetaminophen 650 MG Q8P PRN 10/26 2115 AC PO Albuterol Sulfate 3 ML BID 11/06 2200 AC 11/06 INH 2040 Albuterol Sulfate 3 ML Q4P PRN 10/28 1430 AC 10/31 INH 2131 Artificial Tears 2 GTT TID 11/06 1000 AC 11/07 OPH 0910 Bisacodyl 10 MG Q12P PRN 11/02 0845 AC 11/03 PA 1427 Folic Acid 1 MG DAILY 10/27 1000 AC 11/07 PO 0909 Furosemide 20 MG ONCE ONE 11/06 1400 DC 11/06 IV 11/06 1401 1401 Furosemide 40 MG BID 11/03 0830 AC 11/07 IV 0909 Gabapentin 300 MG TID 10/26 2200 AC 11/07 PO 0909 Heparin Sodium 25,000 UNIT Q24H 11/06 1500 CAN (Porcine) IV Sodium Chloride 500 ML Hydromorphone HCl 0.4 MG Q6P PRN 10/27 0415 AC 11/07 IV 0545 Lorazepam 1 MG Q1 NEEDED PRN 10/29 0830 AC 11/04 IV 1515 Lorazepam 0 Q1P PRN 10/26 2200 AC 11/05 IV 2116 Magnesium Sulfate 1 GM ONCE ONE 11/07 914 UNVr Dextrose/Water 100 ML IV 11/07 1314 Magnesium Sulfate 1 GM Q2H 11/06 0900 DC 11/06 Dextrose/Water 100 ML IV 11/06 1259 1028 Multivitamins 15 ML DAILY 10/29 1000 AC 11/07 PO 0910 Norepinephrine 4 MG Q5H 11/06 0915 AC 11/07 Sodium Chloride 250 ML IV 0142 Pantoprazole Sodium 40 MG DAILY 10/29 1000 AC 11/07 IV 0910 Phosphate 250 MG PC AND AT BEDTIME 11/06 0900 AC 11/07 PO 0909 Polyethylene Glycol 17 GM DAILY 11/02 1000 AC 11/07 PO 0909 Potassium Chloride 40 MEQ BID 11/07 2200 UNVr PO 11/08 1001 Potassium Chloride 40 MEQ ONCE ONE 11/07 0900 DC PO 11/07 0901 Pravastatin Sodium 20 MG 1700 10/27 1700 AC 11/06 PO 1716 Scopolamine HBr 1 PAT Q72H 11/06 1400 AC 11/06 TOP 1535 Senna 187 MG AT BEDTIME 11/02 2200 AC 11/06 PO 2136 Thiamine HCl 100 MG DAILY 10/27 1000 AC 11/07 PO 0909 Vital Signs & I&O Last 24 Hrs of Vitals and I&O: Vital Signs Date Time Temp Pulse Resp B/P B/P Pulse O2 O2 Flow FiO2 Mean Ox Delivery Rate 11/07 0800 99 Ventilator 30% 11/07 0800 98.1 79 20 100/60 99 Ventilator 30% 11/07 0611 30 11/07 0400 100 Ventilator 30% 11/07 0318 30 11/07 0142 98.3 89 20 104/50 11/07 0023 30 11/07 0000 98.3 89 23 90/50 99 Ventilator 30% 11/07 0000 99 Ventilator 30% 11/06 2216 30 11/06 2132 87 23 14/59 11/06 2030 30 11/06 2000 95 Ventilator 30% 11/06 1635 30 11/06 1600 98 Ventilator 30% 11/06 1200 99 Ventilator 30% 11/06 1200 99.1 84 24 100/54 99 Ventilator 30% 11/06 1154 30 Intake & Output 11/07 1600 11/07 0800 11/07 0000 Intake Total 652 757 Output Total 1090 1315 Balance -438 -558 Intake, IV 150 117 Intake, Tube 392 280 Feeding Intake, Tube 110 360 Irrigant Output, 0 25 Drainage Output, Urine 1090 1290 Saturation 30% 99% blood pressure remains borderline on low dose Levophed of his chest shows clear lung kulkarni cardiac exam shows a regular S1 and S2 abdomen is soft nontender Impression/Plan Impression/Plan Impression/Plan: 62-year-old status post revision of amputation remains pressor dependent now with respiratory alkalosis leukocytosis and hyponatremia respiratory alkalosis is improved but respiratory rate can be further decreased hyponatremia is improving Recommendations: Decreased respiratory rate to 14 and obtain blood gas. Change IV fluids to normal saline. Reculture and repeat chest x-ray with leukocytosis. Ask vascular/cardiology regarding need for further anticoagulation. If not DVT prophylaxis Taper Levophed as blood pressure tolerates.
[2017-11-07 12:00] VITALS: BP 98/68
--- NOTE | 2017-11-07 13:28 | RADIOLOGY REPORT ---
EXAMINATION: XR PORTABLE CHEST CLINICAL INFORMATION: Follow-up status post intubation. COMPARISON: Chest x-ray 11/06/2017. TECHNIQUE: Portable frontal view of the chest was obtained. FINDINGS: Endotracheal tube tip remains 2.5 cm above the tin. Enteric tube is likely faintly visualized within the upper abdomen, difficult to assess secondary to technique. Left IJ central venous catheter tip again terminates at the cavoatrial junction. Stable appearing diffuse interstitial opacities and right midlung airspace opacity. There is no pneumothorax or pleural effusion. Cardiac silhouette and osseous structures are stable. IMPRESSION: Stable appearing tubes and lines as discussed above with the endotracheal tube 2.5 cm above the tin. Stable appearing diffuse interstitial and right midlung airspace opacities.
[2017-11-07 16:00] VITALS: BP 98/58
[2017-11-07 22:28] LABS: PTT 47 SEC (25-37)
[2017-11-08] VITALS: BP 909/50
[2017-11-08 04:23] LABS: ABSOLUTE BASOPHIL COUNT 0.1 /CUMM (0.0-0.2); ABSOLUTE EOSINOPHIL COUNT 0.1 /CUMM (0.0-0.7); ABSOLUTE GRANULOCYTE CT 14.3 /CUMM (1.4-6.5); ABSOLUTE LYMPH COUNT 1.7 /CUMM (1.2-3.4); ABSOLUTE MONOCYTE COUNT 1.2 /CUMM (0.10-0.60); BASOPHIL % 0.4 % (0.0-2.0); EOSINOPHIL % 0.4 % (0-5); GRANULOCYTE % 82.5 % (42.2-75.2); HEMATOCRIT 25.5 % (42-52); MEAN CORPUSCULAR HGB 28.6 PG (27.0-31.0); MEAN CORPUSCULAR HGB CONC 32.4 G/DL (33.0-37.0); MEAN CORPUSCULAR VOLUME 88.2 FL (80.0-94.0); MEAN PLATELET VOLUME 7.9 FL (7.4-10.4); PLATELET COUNT 408 /CUMM (130-400); RBC DISTRIBUTION WIDTH 24.1 % (11.5-14.5); RED BLOOD CELL CT 2.89 /CUMM (4.70-6.10); WHITE BLOOD CELL COUNT 17.3 /CUMM (4.8-10.8)
[2017-11-08 04:37] LABS: PTT 42 SEC (25-37)
--- NOTE | 2017-11-08 07:27 | PN- Resident CRCU ---
Subjective HPI/CRCU Issues: Mr. flores continues to do well. Did not have any new concerns. On examination, he had some opacity on the left cornea, which was evaluated closely this a.m. Although he could not speak, he would nod to question.s appropriately. 24 Hour Events: Tmax 99.1. HR range 78-92, NSR RR 14-20 Blood pressure: systolic 92-114, diastolic 51-64, Blood sugars 148, 122 Vent settings: AC, volume TV 500, RR14, FiO2 30%, PEEP 5, pulse ox 97-99%. Ins and outs: In the last 24 hours 3725 mL, output 2144 mL Total balance to date 20901 mL, 40633 mL. Objective Vital Signs & I&O Last 8 Hrs of Vitals and I&O: Intake & Output 11/08 0800 Intake Total 1288 Output Total 518 Balance 770 Intake, IV 508 Intake, Tube 560 Feeding Intake, Tube 220 Irrigant Output, Urine 518 Exam General Appearance: intubated Other Physical Findings: General Appearance: awake, intubated, lethargic Head: atraumatic, left corneal ulcer/opacity Ears, Nose, Throat: normal pharynx Neck: normal inspection, supple Respiratory: b/l transmitted breath sounds, mild ronchi in bases Cardiovascular: regular rate/rhythm Gastrointestinal: normal bowel sounds, soft, non-tender Extremities: left AKA witha wound vac in place; RLE no edema Cranial Nerves: normal hearing, PERRL Weaning Parameters NIF: 67 Minute Volume: 11.1 Resp rate: 34 Vt: 578 Heart Rate: 97 Weaning Schedule Start Time: 1914 Minute Volume: 12.2 Resp Rate: 28 Vt: 450 Heart Rate: 96 End Time: 2210 Minute Volume: 10 Resp Rate: 23 Vt: 525 Heart Rate: 98 Current Medications: Current Medications Sig/Lillie Start time Last Medication Dose Route Stop Time Status Admin Acetaminophen 650 MG Q8P PRN 10/26 2115 AC PO Albuterol Sulfate 3 ML BID 11/06 2200 AC 11/08 INH 2036 Albuterol Sulfate 3 ML Q4P PRN 10/28 1430 AC 10/31 INH 2131 Artificial Tears 2 GTT TID 11/06 1000 DC 11/08 OPH 1653 Bisacodyl 10 MG Q12P PRN 11/02 0845 AC 11/07 OH 1040 Ceftazidime 1,000 MG IQ8 11/08 0000 AC 11/08 IV 1653 Ciprofloxacin 2 GTT Q2H 11/08 2000 AC 11/08 OPH 2001 Ciprofloxacin 2 GTT 4 TIMES/DAY 11/07 1800 DC 11/08 OPH 1653 Folic Acid 1 MG DAILY 10/27 1000 AC 11/08 PO 1018 Furosemide 40 MG Q6 11/08 1200 DC IV Furosemide 20 MG Q6 11/08 1200 AC 11/08 IV 1653 Furosemide 40 MG BID 11/03 0830 DC 11/08 IV 1018 Gabapentin 300 MG TID 10/26 2200 AC 11/08 PO 1653 Heparin Sodium 5,000 UNIT .STK-MED ONE 11/08 0627 DC (Porcine) IV 11/08 0628 Heparin Sodium 25,000 UNIT Q24H 11/07 1500 AC 11/08 (Porcine) IV 1654 Sodium Chloride 500 ML Hydromorphone HCl 0.4 MG ONCE ONE 11/08 1730 DC 11/08 IV 11/08 1731 1728 Hydromorphone HCl 0.4 MG Q6P PRN 10/27 0415 AC 11/08 IV 1243 Lorazepam 1 MG Q1 NEEDED PRN 10/29 0830 AC 11/08 IV 1720 Lorazepam 0 Q1P PRN 10/26 2200 AC 11/05 IV 2116 Multivitamins 15 ML DAILY 10/29 1000 AC 11/08 PO 1018 Norepinephrine 4 MG Q10H 11/07 1300 AC 11/08 Sodium Chloride 250 ML IV 0932 Pantoprazole Sodium 40 MG DAILY 10/29 1000 AC 11/08 IV 1018 Phosphate 250 MG PC AND AT BEDTIME 11/06 0900 AC 11/08 PO 1653 Polyethylene Glycol 17 GM DAILY 11/02 1000 AC 11/08 PO 1018 Polymyxin/ 2 GTT Q2H 11/08 2100 AC Trimethoprim Sulfate OPH Potassium Chloride 40 MEQ BID 11/07 2200 DC 11/07 PO 11/08 1001 2142 Pravastatin Sodium 20 MG 1700 10/27 1700 AC 11/08 PO 1653 Scopolamine HBr 1 PAT Q72H 11/06 1400 AC 11/06 TOP 1535 Senna 187 MG AT BEDTIME 11/02 2200 AC 11/07 PO 2142 Sodium Chloride 1,000 ML Q20H 11/07 1515 DC / IV 11/08 1114 1615 Thiamine HCl 100 MG DAILY 10/27 1000 AC 11/08 PO 1018 Vancomycin HCl 1,000 MG Q12 11/07 2200 AC 11/08 Dextrose/Water 250 ML IV 1020 Impression/Plan Impression/Problem List Impression: Mr Flores is a 62-year-old gentleman with PMHx of alcohol abuse, asthma and recurrent DVT on Eliquis, h/o UGI bleed, GERD, neuropathy, NSTEMI, left lower extremity ischemia, requiring a left popliteal and SFA thrombectomy as well as a compartment fasciotomy, with eventual recovery and discharge, but with recurrent ischemia to the left leg requiring a left AKA on 05/28/2017. Developed left AKA stump infection in 06/2017 s/p I&D, debridement and washout x [address] Crystal who presented to the ED on 10/26/17 with c/o loss of sensation in his left stump where he saw bone coming out of the wound. He was scheduled to be taken to the OR on Wednesday10/29/17, however, his hospital course was complicated by acute hypoxic respiratory failure thought to be multifactorial 10/29 requiring intubation for airway protection. After he was aggressively diuresed, and stabilized, he was taken to the OR on 11/05/17 and underwent the revision of left AKA stump and placement of negative pressure dressing by Dr. Crystal. Labs in the last 24-48 hrs: wbc 17.3( improving) Hb 8.3( stable ) Na 132, K 4.2 Microbiology: 11/08: OR culture showed growth of Proteus mirabilis, diphtheroids and enterococcus pansensitive. CXR 11/08: Low lung volumes are noted with diffuse reticular opacities again seen throughout both lungs with relative sparing of the left lower lung. Findings are similar to the previous study allowing for differences in technique. Plan: Respiratory: Acute hypoxic respiratory failure. Likely etiology for the decompensation, was due to fluid overload, and or pneumonia. Tx'ed w/ Unasyn, with adequate clinial improvement. Continues to have fluid overload, and would need diuresis with a close watch on his CVP. Hold for CVP of less than 6. Check BEP. Aspiration precautions. Infectious: Continues to have elevated white count, but improving. OR cultures showed growth of multiple organisms including proteus, enterococcus which are damon senstive. He was started on vanc+ceftaz last night, which could be changed to unasyn. Defer the decision to the ID physician if we can discontinue the abx. The wound appears to be healing in the RLE, and no drainage. Further mangement of wound as per vascular. Circulatory: Stable. Left IJ in place, and continue Levophed to maintain mean arterial blood pressure of > 65mmHg. Echo shows normal EF of 60% with impaired LV relaxation. Mild mitral regurgitation. Trop and ECG - no evidence of ischemic changes. Cardiology advising. Monitor for hypotension. Hematology- Low H&H, which is stable for now. Hb 8.3. History of DVT in the past on the left LE x2, and also have rigth fem-pop bypass. Continues to be on iv heparin, and if he has no indication of continuing the heparin, would dc it. Also has IVC filter in place, as per notes. TSH, FT4 WNL folate and Vitamin B12, WNL. Iron studies c/w anemia of chronic disease. If the pt doesnt have any DVT alisa LE, would re-assess the need for heparin. Metabolic- Continue to monitor the blood sugars. Tube feeds as per nutrition. For alcohol dependence, he is on CIWA. No active ativan order for now. Stage 3 decubitus ulcers present on buttocks bilaterally. Neurology- Eye exam has findings s/o left corneal ulcer. Await opthalmology recs. Housekeepin. DVT PPx- Heparin iv. 2. GI Ppx- Protonix 3. LInes- IJ line 10/29/17. Would try to remove the line lance. 4. Meyer cath 5. Vent setting- Volume control. Wean, once BP is more stable. Problem List: 1. Status post above knee amputation of left lower extremity 2. Alcohol use 3. Hypotension 4. Anemia Pain Ratin Tomorrow's Labs & Rationales: cbc icu bundle Plan DVT/Prophylaxis: pharmacological
[2017-11-08 08:00] VITALS: BP 118/70
--- NOTE | 2017-11-08 09:19 | PN- CRCU ---
Subjective HPI/Critical Care Issues: Continues to be intubated awake and follows commands. Other history could be obtained as he is intubated Flowsheet data reviewed Afebrile Continues to be in sinus rhythm and maintaining his blood pressure. On assist control 500 mL tidal volume at 30% FiO2 oxygen saturation 99%. Continues to be on vasopressors with Levophed at 7 mics, on heparin on low-dose normal saline as well and continues to be on tube feedings. Urine output has been adequate and mean arterial pressure appears to be well maintained. SIGNIFICANT DATA Chest x-ray reviewed shows bilateral pulmonary edema Previous CT reviewed showed extensive bilateral ground glass opacities appears to be pulmonary edema with underlying interstitial process Previous abdominal CT reviewed showed ascites and bilateral pleural effusion. Previous echocardiogram reviewed showed normal ejection fraction with normal pulmonary artery pressure BUN is 6 creatinine 0.3 proBNP 2230 White count 17.3 hemoglobin 8.3 platelets 408. Hemoglobin has been stable ABG reviewed. Objective Vital Signs & I&O Last 24 Hrs of Vitals and I&O: Vital Signs Date Time Temp Pulse Resp B/P B/P Pulse O2 O2 Flow FiO2 Mean Ox Delivery Rate 11/08 0628 30 11/08 0400 99 Ventilator 30% 11/08 0343 30 11/08 0055 30 11/08 0000 99 Ventilator 30% 11/08 0000 98.7 85 20 909/50 99 Ventilator 30% 11/07 2334 98.7 83 22 94/53 11/07 2300 98 Ventilator 30% 11/07 2231 30 11/07 1935 30 11/07 1635 30 11/07 1600 97 Ventilator 30% 11/07 1600 98.2 92 22 98/58 97 Ventilator 30% 11/07 1357 79 98/68 11/07 1355 30 11/07 1200 98 Ventilator 30% 11/07 1200 98.6 85 21 98/68 98 Ventilator 30% 11/07 0950 30 Intake & Output 11/08 1600 11/08 0800 11/08 0000 Intake Total 1288 1385 Output Total 518 650 Balance 770 735 Intake, IV 508 575 Intake, Other 180 Intake, Tube 560 410 Feeding Intake, Tube 220 220 Irrigant Output, 25 Drainage Output, Urine 518 625 Laboratory Tests 11/08 11/08 11/07 0610 0400 2200 Blood Gas pH (7.35 - 7.45 PH) 7.52 H pCO2 (35 - 45 TORR) 30 L pO2 (80 - 100 TORR) 114 H HCO3 (21 - 28 MEQ/L) 24 ABG O2 Sat (Measured) (>96.0 %) 98.0 P-50 (Temp Corrected) N Carboxyhemoglobin (1.5 - 5.0 %) 0.7 L O2 Concentration % .30 Respiration Rate (BPM) 14 O2 Delivery Method VENT Vent Mode A/C Expiratory Pressure (CMH2O/P) 5 Tidal Volume (CC) 500 Chemistry Sodium (137 - 145 mmol/L) 132 L Potassium (3.5 - 5.1 mmol/L) 4.2 Chloride (98 - 107 mmol/L) 100 Carbon Dioxide (22 - 30 mmol/L) 27 Anion Gap (5 - 16) 6 BUN (9 - 20 mg/dL) 6 L Creatinine (0.7 - 1.2 mg/dL) 0.3 L Estimated GFR (>60 ml/min) > 60 Glucose (65 - 99 mg/dL) 106 H Calcium (8.4 - 10.2 mg/dL) 7.5 L Phosphorus (2.5 - 4.5 mg/dL) 3.0 Magnesium (1.6 - 2.3 mg/dL) 1.9 Total Bilirubin (0.2 - 1.3 mg/dL) 0.3 AST (17 - 59 U/L) 65 H ALT (21 - 72 U/L) 45 Albumin (3.5 - 5.0 g/dL) 2.1 L Coagulation APTT (25 - 37 SEC) 42 H 47 H Hematology CBC w Diff NO MAN DIFF REQ WBC (4.8 - 10.8 /CUMM) 17.3 H RBC (4.70 - 6.10 /CUMM) 2.89 L Hgb (14.0 - 18.0 G/DL) 8.3 L Hct (42 - 52 %) 25.5 L MCV (80.0 - 94.0 FL) 88.2 MCH (27.0 - 31.0 PG) 28.6 MCHC (33.0 - 37.0 G/DL) 32.4 L RDW (11.5 - 14.5 %) 24.1 H Plt Count (130 - 400 /CUMM) 408 H MPV (7.4 - 10.4 FL) 7.9 Gran % (42.2 - 75.2 %) 82.5 H Lymphocytes % (20.5 - 51.1 %) 9.6 L Monocytes % (1.7 - 9.3 %) 7.1 Eosinophils % (0 - 5 %) 0.4 Basophils % (0.0 - 2.0 %) 0.4 Absolute Granulocytes (1.4 - 6.5 /CUMM) 14.3 H Absolute Lymphocytes (1.2 - 3.4 /CUMM) 1.7 Absolute Monocytes (0.10 - 0.60 /CUMM) 1.2 H Absolute Eosinophils (0.0 - 0.7 /CUMM) 0.1 Absolute Basophils (0.0 - 0.2 /CUMM) 0.1 Miscellaneous Phlebotomy Draw Site RIGHT RADIAL 11/07 11/06 0445 1736 Chemistry Sodium (137 - 145 mmol/L) 130 L Potassium (3.5 - 5.1 mmol/L) 3.3 L Chloride (98 - 107 mmol/L) 96 L Carbon Dioxide (22 - 30 mmol/L) 27 Anion Gap (5 - 16) 7 BUN (9 - 20 mg/dL) 6 L Creatinine (0.7 - 1.2 mg/dL) 0.3 L Estimated GFR (>60 ml/min) > 60 Glucose (65 - 99 mg/dL) 107 H Calcium (8.4 - 10.2 mg/dL) 7.3 L Phosphorus (2.5 - 4.5 mg/dL) 3.0 Magnesium (1.6 - 2.3 mg/dL) 1.9 Total Bilirubin (0.2 - 1.3 mg/dL) 0.5 AST (17 - 59 U/L) 35 ALT (21 - 72 U/L) 38 Albumin (3.5 - 5.0 g/dL) 2.0 L Hematology CBC w Diff NO MAN DIFF REQ NO MAN DIFF REQ WBC (4.8 - 10.8 /CUMM) 17.9 H 20.7 H RBC (4.70 - 6.10 /CUMM) 3.02 L 2.60 L Hgb (14.0 - 18.0 G/DL) 8.6 L 7.6 L Hct (42 - 52 %) 26.4 L 23.0 L MCV (80.0 - 94.0 FL) 87.3 88.3 MCH (27.0 - 31.0 PG) 28.6 29.1 MCHC (33.0 - 37.0 G/DL) 32.8 L 32.9 L RDW (11.5 - 14.5 %) 24.7 H 26.1 H Plt Count (130 - 400 /CUMM) 382 401 H MPV (7.4 - 10.4 FL) 8.1 7.9 Gran % (42.2 - 75.2 %) 81.1 H 84.1 H Lymphocytes % (20.5 - 51.1 %) 9.6 L 8.4 L Monocytes % (1.7 - 9.3 %) 9.2 7.3 Eosinophils % (0 - 5 %) 0.1 0 Basophils % (0.0 - 2.0 %) 0 0.2 Absolute Granulocytes (1.4 - 6.5 /CUMM) 14.5 H 17.4 H Absolute Lymphocytes (1.2 - 3.4 /CUMM) 1.7 1.7 Absolute Monocytes (0.10 - 0.60 /CUMM) 1.6 H 1.5 H Absolute Eosinophils (0.0 - 0.7 /CUMM) 0 0 Absolute Basophils (0.0 - 0.2 /CUMM) 0 0 11/06 1215 Blood Gas pH (7.35 - 7.45 PH) 7.50 H pCO2 (35 - 45 TORR) 30 L pO2 (80 - 100 TORR) 81 HCO3 (21 - 28 MEQ/L) 23 ABG O2 Sat (Measured) (>96.0 %) 95.0 L Carboxyhemoglobin (1.5 - 5.0 %) 0.8 L O2 Concentration % 30% Respiration Rate (BPM) 18 O2 Delivery Method VENT Vent Mode AC Expiratory Pressure (CMH2O/P) 5 Tidal Volume (CC) 500 Miscellaneous Phlebotomy Draw Site LEFT RADIAL Microbiology Date/Time Procedure - Status Source Growth 11/07 1645 Respiratory Culture - RES LOWER RESP GRAM NEGATIVE RODS 11/07 1645 Gram Stain - RES LOWER RESP 11/07 1605 Blood Culture - WKST BLOOD 11/07 1600 Urine Culture - RES URINE ROUT 11/07 1600 Blood Culture - WKST BLOOD 11/05 1410 Gross Specimen Examination - RES EXTREMITIE GRAM NEGATIVE RODS GRAM POSITIVE COCCI 11/05 1410 Gram Stain - RES EXTREMITIE Impression/Plan Impression/Plan Impression/Plan: Exam General Appearance: no apparent distress, alert, awake, intubated Head: atraumatic, Left conjunctiva inflammed with some yellow discharge Ears, Nose, Throat: normal pharynx, normal ENT inspection Neck: normal inspection, supple Respiratory: normal breath sounds, chest non-tender, lungs clear Cardiovascular: regular rate/rhythm, S1-S2 normal Gastrointestinal: normal bowel sounds, soft, non-tender, no organomegaly Extremities: left AKA stump with dressing Cranial Nerves: normal hearing, PERRL, no facial asymmetry Skin: intact, normal color Skin Temp/Moisture Exam: Warm/Dry Sepsis Skin Exam (color): Normal for Ethnicity IMPRESSION This is a gentleman with post revision of amputation with progressive acute hypoxemic respiratory failure which appears to be multifactorial which includes significant pulmonary edema with probable superimposed pneumonia Significant peripheral vascular disease status post surgery Previous significant COPD Previous coronary artery disease with an ST segment elevation OH Significant alcohol dependence in the past Significant gross body fluid overload RECOMMENDATION Continue mechanical ventilator Pressure support trials Continue low-dose norepinephrine Continue heparin Discontinue normal saline Start [id number] intravenous Lasix with 20 mg IV Lasix every 6 hours Check his electrolytes this evening and replace potassium aggressively to keep his potassium more than 4 Replace his divalent appropriately Check random cortisol level from this morning's labs Continue to monitor his sputum culture Infectious disease consult would be appropriate. Patient continues to be critically ill total time spent 40 minutes
[2017-11-08 12:00] VITALS: BP 92/56
[2017-11-08 12:46] LABS: PTT 83 SEC (25-37)
--- NOTE | 2017-11-08 13:36 | RADIOLOGY REPORT ---
EXAMINATION: CR PORTABLE CHEST CLINICAL INFORMATION: Pneumonia, pulmonary edema, respiratory failure. Intubated patient. Assess lung kulkarni for edema and endotracheal tube positioning. COMPARISON: Several prior chest x-rays, most recent of which is dated 11/07/2017. TECHNIQUE: Portable semierect view of the chest was obtained on 2 images. FINDINGS: Endotracheal tube tip is approximately 3.4 cm above the tin as compared to approximately 2 cm previously. An enteric tube is in place and can be followed to the GE junction, beyond which the course of the tube is obscured due to suboptimal technical factors. Multiple external EKG leads overlie the chest. There is a left jugular central venous line in place with tip in the cavoatrial junction region. The cardiomediastinal silhouette is within normal limits in size. Calcification of the aorta is seen. Low lung volumes are noted with diffuse reticular opacities again seen throughout both lungs with relative sparing of the left lower lung. Findings are similar to the previous study allowing for differences in technique. Bony structures are grossly unremarkable. IMPRESSION: 1. Endotracheal tube tip 3.4 cm above the tin. 2. Enteric tube can be followed up to the level of the GE junction with the distal extent not visualized on these images. 3. No change in positioning of the left jugular central venous line with tip in the cavoatrial junction region. 4. No significant change in diffuse reticular opacities in the lungs, perhaps related to interstitial edema. Close clinical correlation requested.
--- NOTE | 2017-11-08 13:50 | PN- Vascular Surgery ---
Subjective Subjective: Remains intubated. Wound vac changed by surgical PA team @ bedside, which he tolerated well. Objective Vital Signs and I&Os Vital Signs Date Time Temp Pulse Resp B/P B/P Pulse O2 O2 Flow FiO2 Mean Ox Delivery Rate 11/08 1225 Ventilator 40% 11/08 1200 30 11/08 0900 30 11/08 0628 30 11/08 0400 99 Ventilator 30% 11/08 0343 30 11/08 0055 30 11/08 0000 99 Ventilator 30% 11/08 0000 98.7 85 20 909/50 99 Ventilator 30% 11/07 2334 98.7 83 22 94/53 11/07 2300 98 Ventilator 30% 11/07 2231 30 11/07 1935 30 11/07 1635 30 11/07 1600 97 Ventilator 30% 11/07 1600 98.2 92 22 98/58 97 Ventilator 30% 11/07 1357 79 98/68 11/07 1355 30 Intake & Output 11/08 1600 11/08 0800 11/08 0000 11/07 1600 11/07 0800 11/07 0000 Intake Total 1288 1385 1053 652 757 Output Total 994 223 6702 1090 1315 Balance 770 735 53 -438 -558 Intake, IV 508 575 324 150 117 Intake, Other 180 Intake, Tube 560 410 359 392 280 Feeding Intake, Tube 220 220 370 110 360 Irrigant Number 1 Bowel Movements Output, 25 0 25 Drainage Output, Urine 778 724 9657 1090 1290 Physical Exam: General - intubated Extremities - central area of revised aka closure with wound vac. pink granulation tissue observed when wound vac foam removed. Current Medications: Current Medications Sig/Lillie Start time Last Medication Dose Route Stop Time Status Admin Acetaminophen 650 MG Q8P PRN 10/26 2115 AC PO Albuterol Sulfate 3 ML BID 11/06 2200 AC 11/08 INH 0845 Albuterol Sulfate 3 ML Q4P PRN 10/28 1430 AC 10/31 INH 2131 Artificial Tears 2 GTT TID 11/06 1000 AC 11/08 OPH 1020 Bisacodyl 10 MG Q12P PRN 11/02 0845 AC 11/07 FL 1040 Ceftazidime 1,000 MG IQ8 11/08 0000 AC 11/08 IV 0750 Ciprofloxacin 2 GTT 4 TIMES/DAY 11/07 1800 AC 11/08 OPH 1244 Folic Acid 1 MG DAILY 10/27 1000 AC 11/08 PO 1018 Furosemide 40 MG Q6 11/08 1200 DC IV Furosemide 20 MG Q6 11/08 1200 AC IV Furosemide 40 MG BID 11/03 0830 DC 11/08 IV 1018 Gabapentin 300 MG TID 10/26 2200 AC 11/08 PO 1018 Heparin Sodium 25,000 UNIT Q24H 11/07 1500 AC 11/07 (Porcine) IV 1624 Sodium Chloride 500 ML Hydromorphone HCl 0.4 MG Q6P PRN 10/27 0415 AC 11/08 IV 1243 Lorazepam 1 MG Q1 NEEDED PRN 10/29 0830 AC 11/07 IV 2301 Lorazepam 0 Q1P PRN 10/26 2200 AC 11/05 IV 2116 Multivitamins 15 ML DAILY 10/29 1000 AC 11/08 PO 1018 Norepinephrine 4 MG Q10H 11/07 1300 AC 11/08 Sodium Chloride 250 ML IV 0932 Pantoprazole Sodium 40 MG DAILY 10/29 1000 AC 11/08 IV 1018 Phosphate 250 MG PC AND AT BEDTIME 11/06 0900 AC 11/08 PO 1243 Polyethylene Glycol 17 GM DAILY 11/02 1000 AC 11/08 PO 1018 Potassium Chloride 40 MEQ BID 11/07 2200 DC 11/07 PO 11/08 1001 2142 Pravastatin Sodium 20 MG 1700 10/27 1700 AC 11/07 PO 1623 Scopolamine HBr 1 PAT Q72H 11/06 1400 AC 11/06 TOP 1535 Senna 187 MG AT BEDTIME 11/02 2200 AC 11/07 PO 2142 Sodium Chloride 1,000 ML Q20H 11/07 1515 DC 11/07 IV 11/08 1114 1615 Thiamine HCl 100 MG DAILY 10/27 1000 AC 11/08 PO 1018 Vancomycin HCl 1,000 MG Q12 11/07 220 AC 11/08 Dextrose/Water 250 ML IV 1020 Results Last 48 Hours of Labs: Laboratory Tests 11/08 11/08 11/08 1215 0610 0400 Blood Gas pH (7.35 - 7.45 PH) 7.52 H pCO2 (35 - 45 TORR) 30 L pO2 (80 - 100 TORR) 114 H HCO3 (21 - 28 MEQ/L) 24 ABG O2 Sat (Measured) (>96.0 %) 98.0 P-50 (Temp Corrected) N Carboxyhemoglobin (1.5 - 5.0 %) 0.7 L O2 Concentration % .30 Respiration Rate (BPM) 14 O2 Delivery Method VENT Vent Mode A/C Expiratory Pressure (CMH2O/P) 5 Tidal Volume (CC) 500 Chemistry Sodium (137 - 145 mmol/L) 132 L Potassium (3.5 - 5.1 mmol/L) 4.2 Chloride (98 - 107 mmol/L) 100 Carbon Dioxide (22 - 30 mmol/L) 27 Anion Gap (5 - 16) 6 BUN (9 - 20 mg/dL) 6 L Creatinine (0.7 - 1.2 mg/dL) 0.3 L Estimated GFR (>60 ml/min) > 60 Glucose (65 - 99 mg/dL) 106 H Calcium (8.4 - 10.2 mg/dL) 7.5 L Phosphorus (2.5 - 4.5 mg/dL) 3.0 Magnesium (1.6 - 2.3 mg/dL) 1.9 Total Bilirubin (0.2 - 1.3 mg/dL) 0.3 AST (17 - 59 U/L) 65 H ALT (21 - 72 U/L) 45 Albumin (3.5 - 5.0 g/dL) 2.1 L Cortisol AM Sample (4.46 - 22.7 ug/dL) 13.6 Coagulation APTT (25 - 37 SEC) 83 H 42 H Hematology CBC w Diff NO MAN DIFF REQ WBC (4.8 - 10.8 /CUMM) 17.3 H RBC (4.70 - 6.10 /CUMM) 2.89 L Hgb (14.0 - 18.0 G/DL) 8.3 L Hct (42 - 52 %) 25.5 L MCV (80.0 - 94.0 FL) 88.2 MCH (27.0 - 31.0 PG) 28.6 MCHC (33.0 - 37.0 G/DL) 32.4 L RDW (11.5 - 14.5 %) 24.1 H Plt Count (130 - 400 /CUMM) 408 H MPV (7.4 - 10.4 FL) 7.9 Gran % (42.2 - 75.2 %) 82.5 H Lymphocytes % (20.5 - 51.1 %) 9.6 L Monocytes % (1.7 - 9.3 %) 7.1 Eosinophils % (0 - 5 %) 0.4 Basophils % (0.0 - 2.0 %) 0.4 Absolute Granulocytes (1.4 - 6.5 /CUMM) 14.3 H Absolute Lymphocytes (1.2 - 3.4 /CUMM) 1.7 Absolute Monocytes (0.10 - 0.60 /CUMM) 1.2 H Absolute Eosinophils (0.0 - 0.7 /CUMM) 0.1 Absolute Basophils (0.0 - 0.2 /CUMM) 0.1 Miscellaneous Phlebotomy Draw Site RIGHT RADIAL 11/07 11/07 2200 4181 Chemistry Sodium (137 - 145 mmol/L) 130 L Potassium (3.5 - 5.1 mmol/L) 3.3 L Chloride (98 - 107 mmol/L) 96 L Carbon Dioxide (22 - 30 mmol/L) 27 Anion Gap (5 - 16) 7 BUN (9 - 20 mg/dL) 6 L Creatinine (0.7 - 1.2 mg/dL) 0.3 L Estimated GFR (>60 ml/min) > 60 Glucose (65 - 99 mg/dL) 107 H Calcium (8.4 - 10.2 mg/dL) 7.3 L Phosphorus (2.5 - 4.5 mg/dL) 3.0 Magnesium (1.6 - 2.3 mg/dL) 1.9 Total Bilirubin (0.2 - 1.3 mg/dL) 0.5 AST (17 - 59 U/L) 35 ALT (21 - 72 U/L) 38 Albumin (3.5 - 5.0 g/dL) 2.0 L Coagulation APTT (25 - 37 SEC) 47 H Hematology CBC w Diff NO MAN DIFF REQ WBC (4.8 - 10.8 /CUMM) 17.9 H RBC (4.70 - 6.10 /CUMM) 3.02 L Hgb (14.0 - 18.0 G/DL) 8.6 L Hct (42 - 52 %) 26.4 L MCV (80.0 - 94.0 FL) 87.3 MCH (27.0 - 31.0 PG) 28.6 MCHC (33.0 - 37.0 G/DL) 32.8 L RDW (11.5 - 14.5 %) 24.7 H Plt Count (130 - 400 /CUMM) 382 MPV (7.4 - 10.4 FL) 8.1 Gran % (42.2 - 75.2 %) 81.1 H Lymphocytes % (20.5 - 51.1 %) 9.6 L Monocytes % (1.7 - 9.3 %) 9.2 Eosinophils % (0 - 5 %) 0.1 Basophils % (0.0 - 2.0 %) 0 Absolute Granulocytes (1.4 - 6.5 /CUMM) 14.5 H Absolute Lymphocytes (1.2 - 3.4 /CUMM) 1.7 Absolute Monocytes (0.10 - 0.60 /CUMM) 1.6 H Absolute Eosinophils (0.0 - 0.7 /CUMM) 0 Absolute Basophils (0.0 - 0.2 /CUMM) 0 11/06 1736 Hematology CBC w Diff NO MAN DIFF REQ WBC (4.8 - 10.8 /CUMM) 20.7 H RBC (4.70 - 6.10 /CUMM) 2.60 L Hgb (14.0 - 18.0 G/DL) 7.6 L Hct (42 - 52 %) 23.0 L MCV (80.0 - 94.0 FL) 88.3 MCH (27.0 - 31.0 PG) 29.1 MCHC (33.0 - 37.0 G/DL) 32.9 L RDW (11.5 - 14.5 %) 26.1 H Plt Count (130 - 400 /CUMM) 401 H MPV (7.4 - 10.4 FL) 7.9 Gran % (42.2 - 75.2 %) 84.1 H Lymphocytes % (20.5 - 51.1 %) 8.4 L Monocytes % (1.7 - 9.3 %) 7.3 Eosinophils % (0 - 5 %) 0 Basophils % (0.0 - 2.0 %) 0.2 Absolute Granulocytes (1.4 - 6.5 /CUMM) 17.4 H Absolute Lymphocytes (1.2 - 3.4 /CUMM) 1.7 Absolute Monocytes (0.10 - 0.60 /CUMM) 1.5 H Absolute Eosinophils (0.0 - 0.7 /CUMM) 0 Absolute Basophils (0.0 - 0.2 /CUMM) 0 Assessment/Plan Assessment/Plan This 62 year old male is POD#3 s/p revision of left AKA stump and placement of negative pressure wound vac dressing for dehiscence of left AKA stump with protrusion of the femur through the stump wound vac changed at bedside, to continue 2-3 times weekly hep gtt active, without signs of acute bleeding will d/w Core Measures Venous Thromboembolism VTE Risk Factors Acute Medical Illness No Mechanical VTE Prophylaxis d/t Other (LLE AKA) No VTE Pharm Prophylaxis d/t NA PharmProphylax ordered
--- NOTE | 2017-11-08 14:58 | Cons- Infect Disease ---
General Information and HPI Consulting Request Date of Consult: 11/08/17 Requested By: Dank Pérez MD Reason for Consult: Osteomyelitis of the left femur Source of Information: old records Exam Limitations: clinical condition History of Present Illness: This is a 62-year-old man with a history of alcohol abuse, asthma, recurrent DVT , maintained on Eliquis prior to admission, status post left AKA 5 months prior to admission because of recurrent left leg ischemia following a prolonged hospitalization for a GI bleed, hospitalized 3 and 1/2 months prior to admission because of a nonhealing infected left AKA wound, treated with debridement and antibiotics for a soft tissue infection, with an MRI negative for osteomyelitis, admitted on October 26 after he was sent to the emergency room by Vascular surgery for stump revision because of dehiscence of the wound. On admission he was afebrile, with protrusion of his left femur through the stump. Laboratory data revealed a white blood cell count of 10,000, BUN/creatinine 3 and 0.3, potassium 3.1, serum alcohol level 17. X-ray of the left femur was negative for osteomyelitis. His blood pressure dropped to 90/60 and he was given 2 L of fluid in the emergency room. He was begun on Unasyn and admitted to the floor. On October 28 he spiked a fever to 101.5, with his blood pressure down to 80/40, with increased respiratory distress and with an increased white count to 24,000. His chest x-ray and CT of the chest revealed diffuse interstitial opacities. He was initially placed on BiPAP and was then intubated on October 29. He defervesced and his white blood cell count normalized and, on November 02, Unasyn was discontinued. On November 05 he was taken to the OR for a revision of the left AKA stump with placement of a wound VAC. His OR culture labeled left femur bone was reported positive on November 07 for gram-positive cocci and gram- negative rods, and he was begun on Vancomycin and Ceftazidime. He has remained afebrile on the ventilator. Levophed was begun overnight because of borderline hypotension. His white blood cell count increased to 24,000 on November 06 but decreased to 18,000 by November 07. At present he appears slightly agitated but is unable to express specific complaints. Allergies/Medications Allergies: Coded Allergies: codeine (Mild, SHAKES 07/09/17) Home Med List: Albuterol Sulfate (Ventolin Hfa) 90 MCG HFA.AER.AD 2 PUF INH Q4-6 PRN PRN SHORTNESS OF BREATH Apixaban (Eliquis) 5 MG TABLET 1 TAB PO BID blood clots Aspirin (Aspirin*) 81 MG TAB.CHEW 81 MG PO DAILY heart health Gabapentin (Neurontin) 300 MG CAPSULE 1 CAP PO TID NERVE PAIN (Reported) Mometasone/Formoterol (Dulera 200 Mcg/5 Mcg Inhaler) 200 MCG-5 MCG/ACTUATION HFA.AER.AD 2 PUF INH BID ASTHMA (Reported) Multiple Vitamin (Multivitamins) 1 EACH TABLET 1 TAB PO DAILY SUPPLEMENT ( Reported) Omeprazole 20 MG CAPSULE.DR 40 MG PO DAILY AC GI BLEED Pravastatin Sodium 20 MG TABLET 1 TAB PO DAILY HLD (Reported) Ranitidine HCl 300 MG TABLET 1 TAB PO QPM GI (Reported) Past History Travel History Traveled to [place] past 21 day No Medical History Blood Transfusion Hx: Yes Neurological: peripheral neuropathy EENT: NONE Cardiovascular: hyperlipidemia, myocardial infarction, PVD Respiratory: asthma Gastrointestinal: lower GI bleed Hepatic: NONE Renal: NONE Musculoskeletal: NONE Psychiatric: alcohol dependence Endocrine: NONE Blood Disorders: DVT Cancer(s): NONE 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 , Age 62. FATHER (HEART CONDITION). , Age 60+. Psychosocial History Where Do You Live? Home Services at Home: Nursing Smoking Status: Current Everyday Smoker ETOH Use: denies use Illicit Drug Use: denies illicit drug use Functional Ability ADLs Independent: dressing, eating, toileting, bathing. Review of Systems Review of Systems All Other Systems: Reviewed and Negative Exam & Diagnostic Data Last 24 Hrs of Vital Signs/I&O Vital Signs Date Time Temp Pulse Resp B/P B/P Pulse O2 O2 Flow FiO2 Mean Ox Delivery Rate 11/08 1424 30 11/08 1225 Ventilator 40% 11/08 1200 30 11/08 0900 30 11/08 0628 30 11/08 0400 99 Ventilator 30% 11/08 0343 30 11/08 0055 30 11/08 0000 99 Ventilator 30% 11/08 0000 98.7 85 20 909/50 99 Ventilator 30% 11/07 2334 98.7 83 22 94/53 11/07 2300 98 Ventilator 30% 11/07 2231 30 11/07 1935 30 11/07 1635 30 11/07 1600 97 Ventilator 30% 11/07 1600 98.2 92 22 98/58 97 Ventilator 30% Intake & Output 11/08 1600 11/08 0800 11/08 0000 Intake Total 1288 1385 Output Total 518 650 Balance 770 735 Intake, IV 508 575 Intake, Other 180 Intake, Tube 560 410 Feeding Intake, Tube 220 220 Irrigant Output, 25 Drainage Output, Urine 518 625 Physical Exam Other Physical Findings: Afebrile. He is awake and alert on the ventilator in no acute distress. Skin reveals no rash. HEENT negative. Neck is supple with no adenopathy; left IJ triple-lumen catheter with no inflammation at the site. Lungs rhonchi on the right. Heart regular rhythm with no murmur. Abdomen is soft, nontender with positive bowel sounds. Back no CVA tenderness. Extremities left AKA incision clean, with wound VAC in place; right leg with no inflammation. Neuro is without focality. Meyer catheter is in place. Last 24 Hours of Lab Results: Laboratory Tests 11/08 11/08 11/08 1215 0610 0400 Blood Gas pH (7.35 - 7.45 PH) 7.52 H pCO2 (35 - 45 TORR) 30 L pO2 (80 - 100 TORR) 114 H HCO3 (21 - 28 MEQ/L) 24 ABG O2 Sat (Measured) (>96.0 %) 98.0 P-50 (Temp Corrected) N Carboxyhemoglobin (1.5 - 5.0 %) 0.7 L O2 Concentration % .30 Respiration Rate (BPM) 14 O2 Delivery Method VENT Vent Mode A/C Expiratory Pressure (CMH2O/P) 5 Tidal Volume (CC) 500 Chemistry Sodium (137 - 145 mmol/L) 132 L Potassium (3.5 - 5.1 mmol/L) 4.2 Chloride (98 - 107 mmol/L) 100 Carbon Dioxide (22 - 30 mmol/L) 27 Anion Gap (5 - 16) 6 BUN (9 - 20 mg/dL) 6 L Creatinine (0.7 - 1.2 mg/dL) 0.3 L Estimated GFR (>60 ml/min) > 60 Glucose (65 - 99 mg/dL) 106 H Calcium (8.4 - 10.2 mg/dL) 7.5 L Phosphorus (2.5 - 4.5 mg/dL) 3.0 Magnesium (1.6 - 2.3 mg/dL) 1.9 Total Bilirubin (0.2 - 1.3 mg/dL) 0.3 AST (17 - 59 U/L) 65 H ALT (21 - 72 U/L) 45 Albumin (3.5 - 5.0 g/dL) 2.1 L Cortisol AM Sample (4.46 - 22.7 ug/dL) 13.6 Coagulation APTT (25 - 37 SEC) 83 H 42 H Hematology CBC w Diff NO MAN DIFF REQ WBC (4.8 - 10.8 /CUMM) 17.3 H RBC (4.70 - 6.10 /CUMM) 2.89 L Hgb (14.0 - 18.0 G/DL) 8.3 L Hct (42 - 52 %) 25.5 L MCV (80.0 - 94.0 FL) 88.2 MCH (27.0 - 31.0 PG) 28.6 MCHC (33.0 - 37.0 G/DL) 32.4 L RDW (11.5 - 14.5 %) 24.1 H Plt Count (130 - 400 /CUMM) 408 H MPV (7.4 - 10.4 FL) 7.9 Gran % (42.2 - 75.2 %) 82.5 H Lymphocytes % (20.5 - 51.1 %) 9.6 L Monocytes % (1.7 - 9.3 %) 7.1 Eosinophils % (0 - 5 %) 0.4 Basophils % (0.0 - 2.0 %) 0.4 Absolute Granulocytes (1.4 - 6.5 /CUMM) 14.3 H Absolute Lymphocytes (1.2 - 3.4 /CUMM) 1.7 Absolute Monocytes (0.10 - 0.60 /CUMM) 1.2 H Absolute Eosinophils (0.0 - 0.7 /CUMM) 0.1 Absolute Basophils (0.0 - 0.2 /CUMM) 0.1 Miscellaneous Phlebotomy Draw Site RIGHT RADIAL 11/07 2200 Coagulation APTT (25 - 37 SEC) 47 H Last 24 Hours of Rahat Results: Blood cultures 2 November 07 negative OR culture November 05 labeled left femur bone positive for Enterococcus, Proteus sensitive to all antibiotics tested and diphtheroids Sputum culture November 07 positive for gram-negative rods Urine culture November 07 negative Diagnostic Data Recent Imaging Findings: Chest x-ray November 08, personally reviewed, reveals low lung volumes with diffuse reticular opacities seen throughout both lungs, similar to the previous study CT of the abdomen and pelvis November 01 reveals a small to moderate volume of abdominal ascites, small bilateral pleural effusions, left greater than right, with interstitial edema at the lung bases CTA of the chest October 28 reveals extensive bilateral densities with new bilateral pleural effusions X-ray of the left femur October 26 no evidence of osteomyelitis Assessment/Plan Assessment/Plan Impression: This is a 62-year-old man with a history of alcohol abuse, asthma, recurrent DVT , maintained on Eliquis prior to admission, status post left AKA 5 months prior to admission because of recurrent left leg ischemia, hospitalized 3 and 1/2 months prior to admission with an infected, nonhealing left AKA wound, treated with debridement and antibiotics for a soft tissue infection, admitted on October 26 for stump revision because of dehiscence of the wound, found to be afebrile with a normal white blood cell count, with his hospital course complicated by respiratory failure, felt to be secondary to fluid overload and/ or pneumonia, now 3 days status post revision of the left AKA, with his OR culture positive for Proteus and Enterococcus and a sputum culture positive for gram-negative rods. The presence of exposed bone with the positive bone culture from the OR is consistent with the suspected diagnosis of osteomyelitis and he will likely require a prolonged course of antibiotics to treat the organisms isolated from his bone culture. The diphtheroids presumably represents a contaminant, but the Enterococcus and Proteus are the presumed pathogens and his antibiotics will need to be directed against these 2 organisms. The positive sputum culture is of unclear significance given his improved respiratory status and suspect this represents colonization; nevertheless it may be prudent to treat this culture, which may prove to be a Pseudomonas. Suggestion: 1. Follow-up final OR and sputum cultures 2. Follow-up the bone pathology on the specimen submitted from the OR 3. Will need to pursue placement of a PICC 4. Remove Meyer catheter as soon as feasible 5. Continue Vancomycin and Ceftazidime pending above Consult Acknowledgment - Thank you for your consult request.
[2017-11-08 16:00] VITALS: BP 90/50
--- NOTE | 2017-11-08 17:48 | ULTRASOUND REPORT ---
EXAMINATION: US TRIPLEX OF LOWER EXTREMITIES, BILATERAL CLINICAL INFORMATION: History of DVT. COMPARISON: Triplex left lower extremity Doppler study 02/18/2017. TECHNIQUE: Color-flow triplex imaging with spectral analysis and compression Doppler were performed on the lower extremities. FINDINGS: Right lower extremity: No evidence of deep vein thrombosis from the groin through the calf. Normal compressibility and normal vascular flow seen on Doppler exam. Left lower extremity: Patient has a [id number] amputation. Patient has history of popliteal DVT the left lower extremity. There is deep vein thrombosis in the left proximal femoral vein in the upper thigh. This is partially occlusive. Normal vascular flow is seen in the common femoral vein and greater saphenous vein. There is no right-sided Carrasquillo's cyst. IMPRESSION: 1. Right lower extremity: No evidence of deep vein thrombosis. 2. Left lower extremity: Occlusive deep vein thrombosis in the proximal left femoral vein. This critical result was discussed with Arleth Walker on 11/08/2017, 5:40 PM and it was ascertained that the content and urgency of the report was understood at the time of direct communication.
--- NOTE | 2017-11-08 18:05 | Cons- Ophthalmology ---
General Information and HPI Consulting Request Date of Consult: 11/08/17 Requested By: Elisa IBRAHIM,Dank Costa Reason for Consult: Opacity Noted Left Eye Source of Information: old records Exam Limitations: unable to give history History of Present Illness: Pt admitted with ARDS for last 2 weeks. opacicity noticed ysterday on left eye. Ofloxacin drops began by housestaff and consult called Allergies/Medications Allergies: Coded Allergies: codeine (Mild, SHAKES 07/09/17) Home Med List: Albuterol Sulfate (Ventolin Hfa) 90 MCG HFA.AER.AD 2 PUF INH Q4-6 PRN PRN SHORTNESS OF BREATH Apixaban (Eliquis) 5 MG TABLET 1 TAB PO BID blood clots Aspirin (Aspirin*) 81 MG TAB.CHEW 81 MG PO DAILY heart health Gabapentin (Neurontin) 300 MG CAPSULE 1 CAP PO TID NERVE PAIN (Reported) Mometasone/Formoterol (Dulera 200 Mcg/5 Mcg Inhaler) 200 MCG-5 MCG/ACTUATION HFA.AER.AD 2 PUF INH BID ASTHMA (Reported) Multiple Vitamin (Multivitamins) 1 EACH TABLET 1 TAB PO DAILY SUPPLEMENT ( Reported) Omeprazole 20 MG CAPSULE.DR 40 MG PO DAILY AC GI BLEED Pravastatin Sodium 20 MG TABLET 1 TAB PO DAILY HLD (Reported) Ranitidine HCl 300 MG TABLET 1 TAB PO QPM GI (Reported) Current Medications: Current Medications Sig/Lillie Start time Last Medication Dose Route Stop Time Status Admin Acetaminophen 650 MG Q8P PRN 10/26 2115 AC PO Albuterol Sulfate 3 ML BID 11/06 2200 AC 11/08 INH 0845 Albuterol Sulfate 3 ML Q4P PRN 10/28 1430 AC 10/31 INH 2131 Artificial Tears 2 GTT TID 11/06 1000 AC 11/08 OPH 1653 Bisacodyl 10 MG Q12P PRN 11/02 0845 AC 11/07 WV 1040 Ceftazidime 1,000 MG IQ8 11/08 0000 AC 11/08 IV 1653 Ciprofloxacin 2 GTT 4 TIMES/DAY 11/07 1800 AC 11/08 OPH 1653 Folic Acid 1 MG DAILY 10/27 1000 AC 11/08 PO 1018 Furosemide 40 MG Q6 11/08 1200 DC IV Furosemide 20 MG Q6 11/08 1200 AC 11/08 IV 1653 Furosemide 40 MG BID 11/03 0830 DC 11/08 IV 1018 Gabapentin 300 MG TID 10/26 2200 AC 11/08 PO 1653 Heparin Sodium 5,000 UNIT .STK-MED ONE 11/08 0627 DC (Porcine) IV 11/08 0628 Heparin Sodium 25,000 UNIT Q24H 11/07 1500 AC 11/08 (Porcine) IV 1654 Sodium Chloride 500 ML Hydromorphone HCl 0.4 MG ONCE ONE 11/08 1730 DC 11/08 IV 11/08 1731 1728 Hydromorphone HCl 0.4 MG Q6P PRN 10/27 0415 AC 11/08 IV 1243 Lorazepam 1 MG Q1 NEEDED PRN 10/29 0830 AC 11/08 IV 1720 Lorazepam 0 Q1P PRN 10/26 2200 AC 11/05 IV 2116 Multivitamins 15 ML DAILY 10/29 1000 AC 11/08 PO 1018 Norepinephrine 4 MG Q10H 11/07 1300 AC 11/08 Sodium Chloride 250 ML IV 0932 Pantoprazole Sodium 40 MG DAILY 10/29 1000 AC 11/08 IV 1018 Phosphate 250 MG PC AND AT BEDTIME 11/06 0900 AC 11/08 PO 1653 Polyethylene Glycol 17 GM DAILY 11/02 1000 AC 11/08 PO 1018 Potassium Chloride 40 MEQ BID 11/07 2200 DC 11/07 PO 11/08 1001 2142 Pravastatin Sodium 20 MG 1700 10/27 1700 AC 11/08 PO 1653 Scopolamine HBr 1 PAT Q72H 11/06 1400 AC 11/06 TOP 1535 Senna 187 MG AT BEDTIME 11/02 2200 AC 11/07 PO 2142 Sodium Chloride 1,000 ML Q20H 11/07 1515 DC 11/07 IV 11/08 1114 1615 Thiamine HCl 100 MG DAILY 10/27 1000 AC 11/08 PO 1018 Vancomycin HCl 1,000 MG Q12 11/07 2200 AC 11/08 Dextrose/Water 250 ML IV 1020 Past History Medical History Blood Transfusion Hx: Yes Neurological: peripheral neuropathy EENT: NONE Cardiovascular: hyperlipidemia, myocardial infarction, PVD Respiratory: asthma Gastrointestinal: lower GI bleed Hepatic: NONE Renal: NONE, urinary incontinence Musculoskeletal: NONE Psychiatric: alcohol dependence Endocrine: NONE Blood Disorders: DVT Cancer(s): NONE 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 , Age 62. FATHER (HEART CONDITION). , Age 60+. Psychosocial History Where Do You Live? Home Services at Home: Nursing Smoking Status: Current Everyday Smoker ETOH Use: denies use Illicit Drug Use: denies illicit drug use Functional Ability ADLs Independent: dressing, eating, toileting, bathing. Exam & Diagnostic Data Vital Signs and I&O Vital Signs Date Time Temp Pulse Resp B/P B/P Pulse O2 O2 Flow FiO2 Mean Ox Delivery Rate 11/08 1600 30 11/08 1424 30 11/08 1225 Ventilator 40% 11/08 1200 30 11/08 1200 97 Ventilator 30% 11/08 1200 98.0 89 23 92/56 97 Ventilator 30% 11/08 0900 30 11/08 0800 97.9 89 24 118/70 99 Ventilator 30% 11/08 0800 99 Ventilator 30% 11/08 0628 30 11/08 0400 99 Ventilator 30% 11/08 0343 30 11/08 0055 30 11/08 0000 99 Ventilator 30% 11/08 0000 98.7 85 20 909/50 99 Ventilator 30% 11/07 2334 98.7 83 22 94/53 11/07 2300 98 Ventilator 30% 11/07 2231 30 11/07 1935 30 Intake & Output 11/08 1600 11/08 0800 11/08 0000 11/07 1600 11/07 0800 11/07 0000 Intake Total 1489 1288 1385 1053 652 757 Output Total 1300 962 164 6255 1090 1315 Balance 189 770 735 53 -438 -558 Intake, IV 882 508 575 324 150 117 Intake, Other 180 Intake, Tube 297 560 410 359 392 280 Feeding Intake, Tube 310 220 220 370 110 360 Irrigant Number 0 1 Bowel Movements Output, 0 25 0 25 Drainage Output, Urine 1300 465 597 2564 1090 1290 Physical Exam: Pt examined at bedside. Pt obtunded and on ventilator so no history possible and pt cannot have vision checked. Left eye mildly injected but has whitish opacity with adjacent mucous on lower third of cornea. Assessment/Plan Assessment/Plan Presumed corena ulcer in immunocompromised patient (diabetes, hospitalized, alchol abuse) Cultured lesion today despite patient being on eye drps for a day. Will follow up on culture. Asked housestaff to change to iaxifloxicin eyedrops but hospital does not have them. Will add Polytrim to regimen and have eyedrop administed q2h around the clock alternating between Polytrim and Ofloxacin for the next 48 hours. Will recheck pt on Wed. Consult Acknowledgment - Thank you for your consult request. Attending MD Review Statement Attending Statement Attending MD Statement: examined this patient
--- NOTE | 2017-11-08 18:31 | Event Note ---
Event Note Event Note: Received a phone call from the radiology to discuss the abnormal US doppler of LLE result. He was found to have left proximal femoral vein in the upper thigh which was occlusive. Upon review of his previous records, he was found to have previous non-occlusive DVTs- 07/28/18 Nonocclusive thrombus in the left common femoral vein and superficial femoral vein, consistent with left lower extremity DVT. As per the notes, the IVC filter was retreived on 08/10/18. Current findings s/o occlusive clot which is hard to charecterize( acute vs chronic ) radiologically ; regardless the pt is currently on iv heparin which should be continued pending evaluation by Dr. Crystal. Discussed these findings w/ Dr. Crystal, radiologist marketing rotation associate from [place]; informed Dr. Hill.
[2017-11-09] VITALS: BP 110/50
[2017-11-09 01:10] LABS: PTT 66 SEC (25-37)
[2017-11-09 05:15] LABS: ABSOLUTE BASOPHIL COUNT 0 /CUMM (0.0-0.2); ABSOLUTE EOSINOPHIL COUNT 0.2 /CUMM (0.0-0.7); ABSOLUTE GRANULOCYTE CT 9.6 /CUMM (1.4-6.5); ABSOLUTE MONOCYTE COUNT 0.8 /CUMM (0.10-0.60); BASOPHIL % 0.2 % (0.0-2.0); EOSINOPHIL % 1.9 % (0-5); GRANULOCYTE % 75.4 % (42.2-75.2); HEMATOCRIT 24.9 % (42-52); MEAN CORPUSCULAR HGB 29.2 PG (27.0-31.0); MEAN CORPUSCULAR VOLUME 88.5 FL (80.0-94.0); MEAN PLATELET VOLUME 8.3 FL (7.4-10.4); PLATELET COUNT 459 /CUMM (130-400); RBC DISTRIBUTION WIDTH 23.5 % (11.5-14.5); RED BLOOD CELL CT 2.82 /CUMM (4.70-6.10); WHITE BLOOD CELL COUNT 12.7 /CUMM (4.8-10.8)
--- NOTE | 2017-11-09 07:33 | PN- Resident CRCU ---
Subjective HPI/CRCU Issues: He seems improved, and is more responsive to verbal stimuli. Has been maintianing good oxygen saturation, and plan to wean him off the vent today; and extubate if BP allows. 24 Hour Events: Tm 98.6 HR 84-86 Normal sinus rhythm RR 16-23 Systolic blood pressure 76-113, diastolic blood pressure 61-64 Accu-Cheks 152, 109, 128, 131 Vent settings: Aasdrb-[id number]-eofgzp TV 500, RR 14, FiO2 30, PEEP 5, pulse ox 97-99%. Drips: IV heparin drip per protocol Levophed at 3-5 mcg/min Ins and outs in the last 24 hours-input 4605 mL, output 3335 [place] [address] [place], output 86743 mL. Objective Vital Signs & I&O Last 8 Hrs of Vitals and I&O: Intake & Output 11/09 1600 Intake Total 1055 Output Total 1600 Balance -545 Intake, IV 715 Intake, Oral 0 Intake, Tube 240 Feeding Intake, Tube 100 Irrigant Number 0 Bowel Movements Output, Urine 1600 Exam General Appearance: awake Other Physical Findings: General Appearance: intubated Other Physical Findings: General Appearance: awake, intubated, awake Head: atraumatic, left corneal ulcer/opacity Ears, Nose, Throat: normal pharynx Neck: normal inspection, supple Respiratory: b/l transmitted breath sounds, mild ronchi in bases Cardiovascular: regular rate/rhythm Gastrointestinal: normal bowel sounds, soft, non-tender Extremities: left AKA witha wound vac in place; RLE no edema Cranial Nerves: normal hearing, PERRL Weaning Parameters NIF: 41 Minute Volume: 11.5 Resp rate: 21 Vt: 564 Heart Rate: 90 Weaning Schedule Start Time: 1010 Minute Volume: 13.5 Resp Rate: 23 Vt: 600 Heart Rate: 89 End Time: 1350 Minute Volume: 13.2 Resp Rate: 26 Vt: 650 Heart Rate: 90 Current Medications: Current Medications Sig/Lillie Start time Last Medication Dose Route Stop Time Status Admin Acetaminophen 650 MG Q8P PRN 10/26 2115 AC PO Albuterol Sulfate 3 ML BID 11/06 2200 AC 11/09 INH 0940 Albuterol Sulfate 3 ML Q4P PRN 10/28 1430 AC 10/31 INH 2131 Artificial Tears 2 GTT TID 11/06 1000 DC 02/12 OPH 1653 Bisacodyl 10 MG Q12P PRN 11/02 0845 AC 11/07 [place] 1040 Ceftazidime 1,000 MG IQ8 11/08 0000 DC 11/09 IV 0751 Ciprofloxacin 2 GTT Q2H 11/08 2000 AC 11/09 OPH 1601 Ciprofloxacin 2 GTT 4 TIMES/DAY 11/07 1800 DC 11/08 OPH 1653 Cosyntropin 0.25 MG ONE ONE 11/09 1415 DC 11/09 IV 11/09 1416 1653 Enoxaparin Sodium 100 MG DAILY 11/09 1000 AC 11/09 SC 1054 Folic Acid 1 MG DAILY 10/27 1000 AC 11/09 PO 0920 Furosemide 20 MG Q8 11/09 2200 AC IV Furosemide 20 MG Q6 11/08 1200 DC 11/09 IV 1213 Gabapentin 300 MG TID 10/26 2200 AC 11/09 PO 0920 Heparin Sodium 25,000 UNIT Q24H 11/07 1500 DC 11/09 (Porcine) IV 0401 Sodium Chloride 500 ML Hydromorphone HCl 0.4 MG Q6P PRN 10/27 0415 AC 11/09 IV 1212 Lorazepam 1 MG Q1 NEEDED PRN 10/29 0830 AC 11/08 IV 1720 Lorazepam 0 Q1P PRN 10/26 2200 DC 11/05 IV 2116 Magnesium Sulfate 1 GM ONCE ONE 11/09 1145 DC 11/09 Dextrose/Water 100 ML IV 11/09 1544 1213 Multivitamins 15 ML DAILY 10/29 1000 AC 11/09 PO 0920 Non-Formulary 0 SEE ADMIN CRITERIA 11/09 1200 CAN Medication ANY Norepinephrine 4 MG Q10H 11/07 1300 AC 11/09 Sodium Chloride 250 ML IV 1400 Pantoprazole Sodium 40 MG DAILY 10/29 1000 AC 11/09 IV 0920 Phosphate 250 MG PC AND AT BEDTIME 11/06 0900 AC 11/09 PO 0920 Piperacillin Sod/ 4.5 GM Q6H 11/09 1230 AC 11/09 Tazobactam Sod IV 1356 Sodium Chloride 100 ML Polyethylene Glycol 17 GM DAILY 11/02 1000 AC 11/09 PO 0920 Polymyxin/ 2 GTT Q2H 11/08 2100 AC 11/09 Trimethoprim Sulfate OPH 1654 Pravastatin Sodium 20 MG 1700 10/27 1700 AC 11/08 PO 1653 Scopolamine HBr 1 PAT Q72H 02/10 1400 AC 11/09 TOP 1400 Senna 187 MG AT BEDTIME 11/02 2200 AC 11/08 PO 2222 Thiamine HCl 100 MG DAILY 10/27 1000 AC 11/09 PO 0920 Vancomycin HCl 1,000 MG Q12 11/07 2200 DC 11/09 Dextrose/Water 250 ML IV 0920 Impression/Plan Impression/Problem List Impression: Mr Flores is a 62-year-old gentleman with PMHx of alcohol abuse, asthma and recurrent DVT on Eliquis, h/o UGI bleed, GERD, neuropathy, NSTEMI, left lower extremity ischemia, requiring a left popliteal and SFA thrombectomy as well as a compartment fasciotomy, with eventual recovery and discharge, but with recurrent ischemia to the left leg requiring a left AKA on 05/28/2017. Developed left AKA stump infection in 06/2017 s/p I&D, debridement and washout x [address] Crystal who presented to the ED on 10/26/17 with c/o loss of sensation in his left stump where he saw bone coming out of the wound. He was scheduled to be taken to the OR on Wednesday10/29/17, however, his hospital course was complicated by acute hypoxic respiratory failure thought to be multifactorial / requiring intubation for airway protection. After he was aggressively diuresed, and stabilized, he was taken to the OR on 11/05/17 and underwent the revision of left AKA stump and placement of negative pressure dressing by Dr. Crystal. Labs in the last 24-48 hrs: wbc 12.7 ( improving) Hb 8.2( stable ) Na 133, K 4.1. Microbiology: 11/08: OR culture showed growth of Proteus mirabilis, diphtheroids and enterococcus pansensitive. CXR 11/09:No significant change in diffuse bilateral reticular lung opacities. Findings are nonspecific, but may be related to diffuse pneumonitis. Clinical correlation requested. Plan: Respiratory: Acute hypoxic respiratory failure. Likely etiology for the decompensation, was due to fluid overload, and or pneumonia. Tx'ed w/ Unasyn, with adequate clinial improvement. Continues to have fluid overload, and would need diuresis with a close watch on his CVP. Hold for CVP of less than 6. Check BEP. Aspiration precautions. Infectious: Continues to have elevated white count, but improving. OR cultures showed growth of multiple organisms including proteus, enterococcus which are damon senstive. He was started on vanc+ceftaz and plan to change the abx to cover pseudomonas also since bone biopsy does appear to have infection. The wound appears to be healing in the RLE, and no drainage. Further mangement of wound as per vascular. Circulatory: Stable. Left IJ in place, and continue Levophed to maintain mean arterial blood pressure of > 65mmHg. Echo shows normal EF of 60% with impaired LV relaxation. Mild mitral regurgitation. Trop and ECG - no evidence of ischemic changes. Cardiology advising. Monitor for hypotension. Hematology- Low H&H, which is stable for now. Hb 8.2. History of DVT in the past on the left LE x2, and also have rigth fem-pop bypass. Continues to be on iv heparin, with a plan to change it to lovenox. Repeat US LLE shows DVT, and unsure, if this is new vs old, regardless this needs to be tx'ed. TSH, FT4 WNL folate and Vitamin B12, WNL. Iron studies c/w anemia of chronic disease. Metabolic- Continue to monitor the blood sugars. Tube feeds as per nutrition, but would discontinue if we plan to extubate. Swallow eval in the am, and advance diet as tolerated. For alcohol dependence, he is on CIWA. No active ativan order for now. Stage 3 decubitus ulcers present on buttocks bilaterally. Neurology- Eye exam has findings s/o left corneal ulcer for which he is on topical abx. He should be monitored closely, for resolution since there is a possibility of uveitis, and risk of opthalmitis which is an emergency. Informed Dr. Putnam of the changes that he has increased haziness in his left eye, and he would evaluate the pt in the am. Await opthal recs. Housekeepin. DVT PPx- Heparin iv. 2. GI Ppx- Protonix 3. LInes- IJ line 10/29/17. Would try to remove the line lance. 4. Meyer cath 5. Vent setting- Volume control. Wean, once BP is more stable. Problem List: 1. Status post above knee amputation of left lower extremity 2. Hypotension 3. Anemia Pain Ratin Tomorrow's Labs & Rationales: cbc icu bundle Plan DVT/Prophylaxis: pharmacological
[2017-11-09 08:00] VITALS: BP 102/52
--- NOTE | 2017-11-09 09:24 | RADIOLOGY REPORT ---
EXAMINATION: CR PORTABLE CHEST CLINICAL INFORMATION: Pneumonia. Pulmonary edema. Respiratory failure. Intubated patient. COMPARISON: Several prior chest x-rays, most recent of which is dated 11/08/2017. TECHNIQUE: Portable AP semierect view of the chest was obtained. FINDINGS: The endotracheal tube tip is approximately 5 cm above the tin. Enteric tube courses into the abdomen with tip not visualized. Left jugular central venous line tip is in the cavoatrial junction. The cardiomediastinal silhouette is within normal limits in size. Calcification of the aortic arch is again noted. Compared to the prior exam, no significant changes seen in the diffuse reticular opacities in the lungs bilaterally with thickening of the central airways. No significant pleural effusion is seen and no pneumothorax is noted. Old healed fracture deformities of the right lateral lower ribs again seen. IMPRESSION: 1. Endotracheal tube tip 5 cm above tin. 2. Enteric tube courses into the abdomen with tip not visualized. 3. Left jugular central venous line tip in the cavoatrial junction. 4. No significant change in diffuse bilateral reticular lung opacities. Findings are nonspecific, but may be related to diffuse pneumonitis. Clinical correlation requested.
--- NOTE | 2017-11-09 09:29 | PN- CRCU ---
Subjective HPI/Critical Care Issues: Events and data reviewed Corneal ulcer noted yesterday and now started on antibiotics Awake alert and oriented 3 Vital signs and data reviewed Afebrile In sinus rhythm Blood pressure adequate Ventilator settings reviewed on assist control, 500 mL tidal volume, 30% FiO2 Continues to be on low-dose levo fed and he is on heparin, tolerating tube feedings. Urine output has been adequate SIGNIFICANT DATA Ultrasound of the lower extremity reviewed which showed DVT in the amputated leg right lower extremity was unremarkable Chest x-ray showed mild interstitial edema Objective Current Medications: Current Medications Sig/Lillie Start time Last Medication Dose Route Stop Time Status Admin Acetaminophen 650 MG Q8P PRN 10/26 2115 AC PO Albuterol Sulfate 3 ML BID 11/06 2200 AC 11/08 INH 2036 Albuterol Sulfate 3 ML Q4P PRN 10/28 1430 AC 10/31 INH 2131 Artificial Tears 2 GTT TID 11/06 1000 DC 11/08 OPH 1653 Bisacodyl 10 MG Q12P PRN 11/02 0845 AC 11/07 [place] 1040 Ceftazidime 1,000 MG IQ8 11/08 0000 AC 11/09 IV 0751 Ciprofloxacin 2 GTT Q2H 11/08 2000 AC 11/09 OPH 0752 Ciprofloxacin 2 GTT 4 TIMES/DAY 11/07 1800 DC 11/08 OPH 1653 Folic Acid 1 MG DAILY 10/27 1000 AC 11/09 PO 0920 Furosemide 40 MG Q6 11/08 1200 DC IV Furosemide 20 MG Q6 11/08 1200 AC 11/09 IV 0609 Furosemide 40 MG BID 11/03 0830 DC 11/08 IV 1018 Gabapentin 300 MG TID 10/26 2200 AC 11/09 PO 0920 Heparin Sodium 25,000 UNIT Q24H 11/07 1500 AC 11/09 (Porcine) IV 0401 Sodium Chloride 500 ML Hydromorphone HCl 0.4 MG ONCE ONE 11/08 1730 DC 11/08 IV 11/08 1731 1728 Hydromorphone HCl 0.4 MG Q6P PRN 10/27 0415 AC 11/09 IV 0621 Lorazepam 1 MG Q1 NEEDED PRN 10/29 0830 AC 11/08 IV 1720 Lorazepam 0 Q1P PRN 10/26 2200 AC 11/05 IV 2116 Multivitamins 15 ML DAILY 10/29 1000 AC 11/09 PO 0920 Norepinephrine 4 MG Q10H 11/07 1300 AC 11/09 Sodium Chloride 250 ML IV 0129 Pantoprazole Sodium 40 MG DAILY 10/29 1000 AC 11/09 IV 0920 Phosphate 250 MG PC AND AT BEDTIME 11/06 0900 AC 11/09 PO 0920 Polyethylene Glycol 17 GM DAILY / 1000 AC 11/09 PO 0920 Polymyxin/ 2 GTT Q2H 11/08 2100 AC 11/09 Trimethoprim Sulfate OPH 0919 Pravastatin Sodium 20 MG 1700 10/27 1700 AC 11/08 PO 1653 Scopolamine HBr 1 PAT Q72H 11/06 1400 AC 11/06 TOP 1535 Senna 187 MG AT BEDTIME 11/02 2200 AC 11/08 PO 2222 Sodium Chloride 1,000 ML Q20H 11/07 1515 DC 11/07 IV 11/08 1114 1615 Thiamine HCl 100 MG DAILY 10/27 1000 AC 11/09 PO 0920 Vancomycin HCl 1,000 MG Q12 11/07 2200 AC 11/09 Dextrose/Water 250 ML IV 0920 Vital Signs & I&O Last 24 Hrs of Vitals and I&O: Vital Signs Date Time Temp Pulse Resp B/P B/P Pulse O2 O2 Flow FiO2 Mean Ox Delivery Rate 11/09 0800 96 Ventilator 30% 11/09 0800 98.2 79 18 102/52 96 Ventilator 30% 11/09 0654 30 11/09 0504 98.2 74 15 100/57 11/09 0400 97 Ventilator 30% 11/09 0300 30 11/09 0129 98.1 76 14 107/62 11/09 0116 30 11/09 0000 98.0 72 18 110/50 98 Ventilator 30% 11/09 0000 98 Ventilator 30% 11/08 2228 30 11/08 2000 96 Ventilator 30% 11/08 1920 30 11/08 1600 30 11/08 1600 99 Ventilator 30% 11/08 1600 98.6 86 19 90/50 94 Ventilator 30% 11/08 1424 30 11/08 1225 Ventilator 40% 11/08 1200 30 11/08 1200 97 Ventilator 30% 11/08 1200 98.0 89 23 92/56 97 Ventilator 30% Intake & Output 11/09 1600 11/09 0800 11/09 0000 Intake Total 1446 1652 Output Total 1140 895 Balance 306 757 Intake, IV 758 454 Intake, Tube 468 878 Feeding Intake, Tube 220 320 Irrigant Output, 0 Drainage Output, Urine 1140 895 Laboratory Tests 11/09 11/09 11/09 0700 0400 0000 Blood Gas pH (7.35 - 7.45 PH) 7.49 H pCO2 (35 - 45 TORR) 37 pO2 (80 - 100 TORR) 127 H HCO3 (21 - 28 MEQ/L) 28 ABG O2 Sat (Measured) (>96.0 %) 98.0 Carboxyhemoglobin (1.5 - 5.0 %) 0.3 L O2 Concentration % .3 Respiration Rate (BPM) 14 O2 Delivery Method VENT Vent Mode AC Expiratory Pressure (CMH2O/P) 5 Tidal Volume (CC) 500 Chemistry Sodium (137 - 145 mmol/L) 133 L Potassium (3.5 - 5.1 mmol/L) 4.1 Chloride (98 - 107 mmol/L) 97 L Carbon Dioxide (22 - 30 mmol/L) 28 Anion Gap (5 - 16) 8 BUN (9 - 20 mg/dL) 7 L Creatinine (0.7 - 1.2 mg/dL) 0.3 L Estimated GFR (>60 ml/min) > 60 Glucose (65 - 99 mg/dL) 111 H Calcium (8.4 - 10.2 mg/dL) 7.8 L Phosphorus (2.5 - 4.5 mg/dL) 4.2 Magnesium (1.6 - 2.3 mg/dL) 1.7 Total Bilirubin (0.2 - 1.3 mg/dL) 0.3 AST (17 - 59 U/L) 46 ALT (21 - 72 U/L) 52 Albumin (3.5 - 5.0 g/dL) 2.1 L Coagulation APTT (25 - 37 SEC) 66 H Hematology CBC w Diff NO MAN DIFF REQ WBC (4.8 - 10.8 /CUMM) 12.7 H RBC (4.70 - 6.10 /CUMM) 2.82 L Hgb (14.0 - 18.0 G/DL) 8.2 L Hct (42 - 52 %) 24.9 L MCV (80.0 - 94.0 FL) 88.5 MCH (27.0 - 31.0 PG) 29.2 MCHC (33.0 - 37.0 G/DL) 33.0 RDW (11.5 - 14.5 %) 23.5 H Plt Count (130 - 400 /CUMM) 459 H MPV (7.4 - 10.4 FL) 8.3 Gran % (42.2 - 75.2 %) 75.4 H Lymphocytes % (20.5 - 51.1 %) 16.0 L Monocytes % (1.7 - 9.3 %) 6.5 Eosinophils % (0 - 5 %) 1.9 Basophils % (0.0 - 2.0 %) 0.2 Absolute Granulocytes (1.4 - 6.5 /CUMM) 9.6 H Absolute Lymphocytes (1.2 - 3.4 /CUMM) 2.0 Absolute Monocytes (0.10 - 0.60 /CUMM) 0.8 H Absolute Eosinophils (0.0 - 0.7 /CUMM) 0.2 Absolute Basophils (0.0 - 0.2 /CUMM) 0 Miscellaneous Phlebotomy Draw Site RIGHT RADIAL 11/08 11/08 11/08 2250 1215 0610 Blood Gas pH (7.35 - 7.45 PH) 7.52 H pCO2 (35 - 45 TORR) 30 L pO2 (80 - 100 TORR) 114 H HCO3 (21 - 28 MEQ/L) 24 ABG O2 Sat (Measured) (>96.0 %) 98.0 P-50 (Temp Corrected) N Carboxyhemoglobin (1.5 - 5.0 %) 0.7 L O2 Concentration % .30 Respiration Rate (BPM) 14 O2 Delivery Method VENT Vent Mode A/C Expiratory Pressure (CMH2O/P) 5 Tidal Volume (CC) 500 Chemistry Sodium (137 - 145 mmol/L) 133 L Potassium (3.5 - 5.1 mmol/L) 4.1 Chloride (98 - 107 mmol/L) 99 Carbon Dioxide (22 - 30 mmol/L) 29 Anion Gap (5 - 16) 5 BUN (9 - 20 mg/dL) 6 L Creatinine (0.7 - 1.2 mg/dL) 0.3 L Estimated GFR (>60 ml/min) > 60 BUN/Creatinine Ratio (7 - 25 %) 20.0 Coagulation APTT (25 - 37 SEC) 83 H Miscellaneous Phlebotomy Draw Site RIGHT RADIAL 11/08 11/07 0400 2200 Chemistry Sodium (137 - 145 mmol/L) 132 L Potassium (3.5 - 5.1 mmol/L) 4.2 Chloride (98 - 107 mmol/L) 100 Carbon Dioxide (22 - 30 mmol/L) 27 Anion Gap (5 - 16) 6 BUN (9 - 20 mg/dL) 6 L Creatinine (0.7 - 1.2 mg/dL) 0.3 L Estimated GFR (>60 ml/min) > 60 Glucose (65 - 99 mg/dL) 106 H Calcium (8.4 - 10.2 mg/dL) 7.5 L Phosphorus (2.5 - 4.5 mg/dL) 3.0 Magnesium (1.6 - 2.3 mg/dL) 1.9 Total Bilirubin (0.2 - 1.3 mg/dL) 0.3 AST (17 - 59 U/L) 65 H ALT (21 - 72 U/L) 45 Albumin (3.5 - 5.0 g/dL) 2.1 L Cortisol AM Sample (4.46 - 22.7 ug/dL) 13.6 Coagulation APTT (25 - 37 SEC) 42 H 47 H Hematology CBC w Diff NO MAN DIFF REQ WBC (4.8 - 10.8 /CUMM) 17.3 H RBC (4.70 - 6.10 /CUMM) 2.89 L Hgb (14.0 - 18.0 G/DL) 8.3 L Hct (42 - 52 %) 25.5 L MCV (80.0 - 94.0 FL) 88.2 MCH (27.0 - 31.0 PG) 28.6 MCHC (33.0 - 37.0 G/DL) 32.4 L RDW (11.5 - 14.5 %) 24.1 H Plt Count (130 - 400 /CUMM) 408 H MPV (7.4 - 10.4 FL) 7.9 Gran % (42.2 - 75.2 %) 82.5 H Lymphocytes % (20.5 - 51.1 %) 9.6 L Monocytes % (1.7 - 9.3 %) 7.1 Eosinophils % (0 - 5 %) 0.4 Basophils % (0.0 - 2.0 %) 0.4 Absolute Granulocytes (1.4 - 6.5 /CUMM) 14.3 H Absolute Lymphocytes (1.2 - 3.4 /CUMM) 1.7 Absolute Monocytes (0.10 - 0.60 /CUMM) 1.2 H Absolute Eosinophils (0.0 - 0.7 /CUMM) 0.1 Absolute Basophils (0.0 - 0.2 /CUMM) 0.1 Microbiology Date/Time Procedure - Status Source Growth 11/08 1800 Head/Neck Culture - RES HEAD/NECK 11/08 1800 Gram Stain - RES HEAD/NECK 11/07 1645 Respiratory Culture - RES LOWER RESP GRAM NEGATIVE RODS 11/07 1645 Gram Stain - RES LOWER RESP 11/07 1605 Blood Culture - RES BLOOD 11/07 1600 Urine Culture - RES URINE ROUT 11/07 1600 Blood Culture - RES BLOOD Impression/Plan Impression/Plan Impression/Plan: Exam General Appearance: no apparent distress, alert, awake, intubated Head: atraumatic, Left conjunctiva inflammed with some yellow discharge, consistent with a corneal ulcer Ears, Nose, Throat: normal pharynx, normal ENT inspection Neck: normal inspection, supple Respiratory: normal breath sounds, chest non-tender, lungs clear Cardiovascular: regular rate/rhythm, S1-S2 normal Gastrointestinal: normal bowel sounds, soft, non-tender, no organomegaly Extremities: left AKA stump with dressing Cranial Nerves: normal hearing, PERRL, no facial asymmetry Skin: intact, normal color Skin Temp/Moisture Exam: Warm/Dry Sepsis Skin Exam (color): Normal for Ethnicity IMPRESSION This is a gentleman with post revision of amputation with acute hypoxemic respiratory failure which appears to be multifactorial which includes significant pulmonary edema with probable superimposed pneumonia, with gram-negative rods in the sputum * Significant peripheral vascular disease status post surgery * Corneal ulcer now on topical antibiotics followed by ophthalmology * Lower extremity DVT in the left side now on heparin drip * Previous significant COPD * History of coronary artery disease with an ST segment elevation [place] in the past with no clinical active ischemia at this time * Significant alcohol dependence in the past * Significant gross body fluid overload, slowly improving * Sepsis continues to be on low-dose norepinephrine RECOMMENDATION Continue mechanical ventilator Pressure support trials and extubate if tolerated Continue intravenous antibiotics and local antibiotics for the eye Continue low-dose norepinephrine Changed to Lovenox and discontinue heparin Continue low-dose Lasix 20 mg IV every 8 hours Check his electrolytes this evening and replace potassium aggressively to keep his potassium more than 4 Replace his divalent appropriately Please do a cosyntropin stimulation test today to rule out adrenal insufficiency Continue to monitor his sputum culture Patient continues to be critically ill total time spent 40 minutes
--- NOTE | 2017-11-09 11:43 | PN- Infect Dx ---
Subjective Subjective: Afebrile without complaints Objective Last 24 Hrs of Vital Signs/I&O Vital Signs Date Time Temp Pulse Resp B/P B/P Pulse O2 O2 Flow FiO2 Mean Ox Delivery Rate 11/09 0830 30 11/09 0800 96 Ventilator 30% 11/09 0800 98.2 79 18 102/52 96 Ventilator 30% 11/09 0654 30 11/09 0504 98.2 74 15 100/57 11/09 0400 97 Ventilator 30% 11/09 0300 30 11/09 0129 98.1 76 14 107/62 11/09 0116 30 02 0000 98.0 72 18 110/50 98 Ventilator 30% 11/09 0000 98 Ventilator 30% 11/08 2228 30 11/08 1999 96 Ventilator 30% 11/08 1920 30 11/08 1600 30 11/08 1600 99 Ventilator 30% 11/08 1600 98.6 86 19 90/50 94 Ventilator 30% 11/08 1424 30 11/08 1225 Ventilator 40% 11/08 1200 30 11/08 1200 97 Ventilator 30% 11/08 1200 98.0 89 23 92/56 97 Ventilator 30% Intake & Output 11/09 1600 11/09 0800 11/09 0000 Intake Total 1446 1652 Output Total 1140 895 Balance 306 757 Intake, IV 758 454 Intake, Tube 468 878 Feeding Intake, Tube 220 320 Irrigant Output, 0 Drainage Output, Urine 1140 895 Physical Exam Other Physical Findings: He appears comfortable on the ventilator in no acute distress HEENT left corneal opacity Neck left IJ triple-lumen catheter with no inflammation at the site Lungs bilateral rhonchi Heart regular rhythm with no murmur Abdomen is soft, nontender, positive bowel sounds Extremities left AKA incision clean, with wound VAC in place Meyer catheter remains in place Results Last 24 Hours of Lab Results: Laboratory Tests 11/09 11/09 1105 0700 Blood Gas pH (7.35 - 7.45 PH) 7.49 H 7.49 H pCO2 (35 - 45 TORR) 36 37 pO2 (80 - 100 TORR) 109 H 127 H HCO3 (21 - 28 MEQ/L) 27 28 ABG O2 Sat (Measured) (>96.0 %) 98.0 98.0 P-50 (Temp Corrected) N Carboxyhemoglobin (1.5 - 5.0 %) 0.8 L 0.3 L O2 Concentration % 30% .3 Temperature (97.0 - 100.0 FARH) 98.2 Respiration Rate (BPM) 14 O2 Delivery Method VENT VENT Vent Mode CPAP AC Expiratory Pressure (CMH2O/P) 5 5 Tidal Volume (CC) 500 Pressure Support (CMH2O/P) 6 Miscellaneous Phlebotomy Draw Site RIGHT RADIAL RIGHT RADIAL 11/09 11/09 11/08 11/08 0400 0000 2250 1215 Chemistry Sodium (137 - 145 mmol/L) 133 L 133 L Potassium (3.5 - 5.1 mmol/L) 4.1 4.1 Chloride (98 - 107 mmol/L) 97 L 99 Carbon Dioxide (22 - 30 mmol/L) 28 29 Anion Gap (5 - 16) 8 5 BUN (9 - 20 mg/dL) 7 L 6 L Creatinine (0.7 - 1.2 mg/dL) 0.3 L 0.3 L Estimated GFR (>60 ml/min) > 60 > 60 BUN/Creatinine Ratio (7 - 25 %) 20.0 Glucose (65 - 99 mg/dL) 111 H Calcium (8.4 - 10.2 mg/dL) 7.8 L Phosphorus (2.5 - 4.5 mg/dL) 4.2 Magnesium (1.6 - 2.3 mg/dL) 1.7 Total Bilirubin (0.2 - 1.3 mg/dL) 0.3 AST (17 - 59 U/L) 46 ALT (21 - 72 U/L) 52 Albumin (3.5 - 5.0 g/dL) 2.1 L Coagulation APTT (25 - 37 SEC) 66 H 83 H Hematology CBC w Diff NO MAN DIFF REQ WBC (4.8 - 10.8 /CUMM) 12.7 H RBC (4.70 - 6.10 /CUMM) 2.82 L Hgb (14.0 - 18.0 G/DL) 8.2 L Hct (42 - 52 %) 24.9 L MCV (80.0 - 94.0 FL) 88.5 MCH (27.0 - 31.0 PG) 29.2 MCHC (33.0 - 37.0 G/DL) 33.0 RDW (11.5 - 14.5 %) 23.5 H Plt Count (130 - 400 /CUMM) 459 H MPV (7.4 - 10.4 FL) 8.3 Gran % (42.2 - 75.2 %) 75.4 H Lymphocytes % (20.5 - 51.1 %) 16.0 L Monocytes % (1.7 - 9.3 %) 6.5 Eosinophils % (0 - 5 %) 1.9 Basophils % (0.0 - 2.0 %) 0.2 Absolute Granulocytes (1.4 - 6.5 /CUMM) 9.6 H Absolute Lymphocytes (1.2 - 3.4 /CUMM) 2.0 Absolute Monocytes (0.10 - 0.60 /CUMM) 0.8 H Absolute Eosinophils (0.0 - 0.7 /CUMM) 0.2 Absolute Basophils (0.0 - 0.2 /CUMM) 0 Last 24 Hours of Rahat Results: OR culture labeled left femur November 05 positive for Proteus sensitive to all antibiotics tested, Pseudomonas, sensitivities pending, Enterococcus sensitive to Ampicillin and diphtheroids Urine culture November 07 positive for Pseudomonas sensitive to all antibiotics tested and a second gram-negative benny Blood cultures 2 November 07 negative Urine culture November 07 negative Recent Imaging Studies: Dopplers of both lower extremities November 08 reveals an occlusive DVT in the proximal left femoral vein Chest x-ray November 09 reveals no change in the diffuse bilateral reticular lung opacities Assessment/Plan Impression: Stable, with temperatures remaining normal and white blood cell count decreasing , on Vancomycin and Ceftazidime Day 2 of treatment for a polymicrobial osteomyelitis of the left femur now 4 days status post left AKA stump revision. His densities on chest x-ray may represent fluid or pneumonia, with a sputum culture positive for gram-negative rods, and his antibiotic regimen for the osteomyelitis will cover these organisms as well. The significance of the left lower extremity DVT is unclear given his history of recurrent DVT and treatment with anticoagulation. Suggestion: 1. Follow-up final OR and sputum cultures 2. Follow-up the bone pathology on the specimen submitted from the OR 3. Vascular surgery input regarding his left leg DVT 4. Would pursue placement of a PICC (and remove left IJ triple-lumen catheter) 5. Remove Meyer catheter as soon as feasible 6. Discontinue Vancomycin and Ceftazidime 7. Begin Zosyn 4.5 g IV every 6 hours
[2017-11-09 16:00] VITALS: BP 90/53
[2017-11-10] VITALS: BP 90/60
[2017-11-10 05:18] LABS: ABSOLUTE BASOPHIL COUNT 0.1 /CUMM (0.0-0.2); ABSOLUTE EOSINOPHIL COUNT 0.1 /CUMM (0.0-0.7); ABSOLUTE GRANULOCYTE CT 7.3 /CUMM (1.4-6.5); ABSOLUTE LYMPH COUNT 1.6 /CUMM (1.2-3.4); ABSOLUTE MONOCYTE COUNT 0.6 /CUMM (0.10-0.60); BASOPHIL % 0.8 % (0.0-2.0); EOSINOPHIL % 1.2 % (0-5); GRANULOCYTE % 75.8 % (42.2-75.2); HEMATOCRIT 25.5 % (42-52); PLATELET COUNT 454 /CUMM (130-400); RBC DISTRIBUTION WIDTH 22.4 % (11.5-14.5); WHITE BLOOD CELL COUNT 9.6 /CUMM (4.8-10.8)
--- NOTE | 2017-11-10 07:43 | PN- Resident CRCU ---
Subjective HPI/CRCU Issues: Seen and examined patient status post extubation yesterday. Is more agitated and trying to move around in bed. complains of pain in his left leg stump 24 Hour Events: no overnight events reported Tm 98.0 HR 64-65 Normal sinus rhythm RR 16-23 Systolic blood pressure 76-113, diastolic blood pressure 61-64, continues to be on levophed Accu-Cheks 152, 109, 128, 131 Objective Vital Signs & I&O Last 8 Hrs of Vitals and I&O: Intake & Output 11/10 1600 11/10 0800 11/10 0000 Intake Total 472 220 Output Total 985 700 Balance -513 -480 Intake, IV 472 220 Number 1 1 Bowel Movements Output, 15 Drainage Output, Urine 970 700 Laboratory Tests 11/10 11/10 0440 0045 Chemistry Sodium (137 - 145 mmol/L) 135 L 135 L Potassium (3.5 - 5.1 mmol/L) 3.7 3.3 L Chloride (98 - 107 mmol/L) 100 100 Carbon Dioxide (22 - 30 mmol/L) 29 29 Anion Gap (5 - 16) 6 7 BUN (9 - 20 mg/dL) 6 L 6 L Creatinine (0.7 - 1.2 mg/dL) 0.3 L 0.3 L Estimated GFR (>60 ml/min) > 60 > 60 BUN/Creatinine Ratio (7 - 25 %) 20.0 Glucose (65 - 99 mg/dL) 92 Calcium (8.4 - 10.2 mg/dL) 8.0 L Phosphorus (2.5 - 4.5 mg/dL) 4.0 Magnesium (1.6 - 2.3 mg/dL) 2.0 Total Bilirubin (0.2 - 1.3 mg/dL) 0.5 AST (17 - 59 U/L) 27 ALT (21 - 72 U/L) 44 Albumin (3.5 - 5.0 g/dL) 2.2 L Hematology CBC w Diff NO MAN DIFF REQ WBC (4.8 - 10.8 /CUMM) 9.6 RBC (4.70 - 6.10 /CUMM) 2.90 L Hgb (14.0 - 18.0 G/DL) 8.4 L Hct (42 - 52 %) 25.5 L MCV (80.0 - 94.0 FL) 88.0 MCH (27.0 - 31.0 PG) 29.0 MCHC (33.0 - 37.0 G/DL) 33.0 RDW (11.5 - 14.5 %) 22.4 H Plt Count (130 - 400 /CUMM) 454 H MPV (7.4 - 10.4 FL) 8.0 Gran % (42.2 - 75.2 %) 75.8 H Lymphocytes % (20.5 - 51.1 %) 16.2 L Monocytes % (1.7 - 9.3 %) 6.0 Eosinophils % (0 - 5 %) 1.2 Basophils % (0.0 - 2.0 %) 0.8 Absolute Granulocytes (1.4 - 6.5 /CUMM) 7.3 H Absolute Lymphocytes (1.2 - 3.4 /CUMM) 1.6 Absolute Monocytes (0.10 - 0.60 /CUMM) 0.6 Absolute Eosinophils (0.0 - 0.7 /CUMM) 0.1 Absolute Basophils (0.0 - 0.2 /CUMM) 0.1 Vital Signs Date Time Temp Pulse Resp B/P B/P Pulse O2 O2 Flow FiO2 Mean Ox Delivery Rate 11/10 1038 Ventilator 40% 11/10 1036 Ventilator 40% 11/10 1035 100 Nasal 2.0L Cannula 11/10 0438 64 20 100/64 11/10 0400 100 Nasal 2.0L Cannula 11/10 0052 97.9 65 20 90/60 11/10 0000 100 Nasal 2.0L Cannula 11/10 0000 97.9 68 20 90/60 100 Nasal 2.0L Cannula 11/09 2049 98 Nasal 3.0L Cannula 11/09 2000 97 Nasal 3.0L Cannula Intake & Output 11/10 1600 11/10 0800 11/10 0000 Intake Total 472 220 Output Total 985 700 Balance -513 -480 Intake, IV 472 220 Number 1 1 Bowel Movements Output, 15 Drainage Output, Urine 970 700 Exam General Appearance: alert, awake, comfortable Weaning Parameters NIF: 16 Minute Volume: 8.52 Resp rate: 14 Vt: 705 Heart Rate: 85 Weaning Schedule Start Time: 0915 Minute Volume: 7.61 Resp Rate: 12 Vt: 450 Heart Rate: 82 End Time: 1130 Minute Volume: 13.2 Resp Rate: 26 Vt: 650 Heart Rate: 90 Current Medications: Current Medications Sig/Lillie Start time Last Medication Dose Route Stop Time Status Admin Acetaminophen 650 MG Q8P PRN 10/26 2115 AC PO Albuterol Sulfate 3 ML BID 11/06 2200 AC 11/10 INH 1034 Albuterol Sulfate 3 ML Q4P PRN 10/28 1430 AC 10/31 INH 2131 Ampicillin 2,000 MG Q6 11/10 1800 AC Sodium Chloride 100 ML IV Bisacodyl 10 MG Q12P PRN 11/02 0845 AC 11/07 WV 1040 Ciprofloxacin 750 MG Q12 11/10 2200 DC PO 11/14 2159 Ciprofloxacin 750 MG Q12 11/10 2200 AC PO 11/14 2159 Ciprofloxacin 2 GTT Q2H 11/08 2000 AC 11/10 OPH 1555 Enoxaparin Sodium 100 MG DAILY 11/09 1000 AC 11/10 SC 0855 Folic Acid 1 MG DAILY 10/27 1000 AC 11/09 PO 0920 Furosemide 20 MG Q12 11/10 2200 AC IV Furosemide 20 MG Q8 11/09 2200 DC 11/10 IV 0611 Gabapentin 300 MG TID 10/26 2200 AC 11/10 PO 1651 Hydromorphone HCl 0.2 MG ONCE ONE 11/10 0930 DC 11/10 IV 11/10 0931 0935 Hydromorphone HCl 0.4 MG Q6P PRN 10/27 0415 AC 11/10 IV 0848 Lorazepam 1 MG Q1 NEEDED PRN 10/29 0830 AC 11/10 IV 1105 Multivitamins 15 ML DAILY 10/29 1000 AC 11/09 PO 0920 Naloxone HCl 0.4 MG .STK-MED ONE 11/10 0205 DC IM 11/10 0206 Naloxone HCl 0.4 MG .STK-MED ONE 11/10 0203 DC IM 11/10 0204 Norepinephrine 4 MG Q10H 11/07 1300 AC 11/10 Sodium Chloride 250 ML IV 0438 Pantoprazole Sodium 40 MG DAILY 10/29 1000 AC 11/10 IV 0855 Phosphate 250 MG PC AND AT BEDTIME 11/06 0900 AC 11/10 PO 1240 Piperacillin Sod/ 4.5 GM Q6H 11/09 1230 DC 11/10 Tazobactam Sod IV 1240 Sodium Chloride 100 ML Polyethylene Glycol 17 GM DAILY 11/02 1000 AC 11/09 PO 0920 Polymyxin/ 2 GTT Q2H 11/08 2100 AC 11/10 Trimethoprim Sulfate OPH 1651 Potassium Chloride 10 MEQ Q1H 11/10 0315 CAN IV 11/10 0416 Potassium Chloride 20 MEQ ONCE ONE 11/10 0315 DC 11/10 IV 11/10 0316 0315 Pravastatin Sodium 20 MG 1700 10/27 1700 AC 11/10 PO 1651 Scopolamine HBr 1 PAT Q72H 11/06 1400 AC 11/09 TOP 1400 Senna 187 MG AT BEDTIME 11/02 2200 AC 11/08 PO 2222 Thiamine HCl 100 MG DAILY 10/27 1000 AC 11/09 PO 0920 Impression/Plan Impression/Problem List Impression: 62-year-old gentleman with PMHx of alcohol abuse, asthma and recurrent DVT on Eliquis, h/o UGI bleed, GERD, neuropathy, NSTEMI, left lower extremity ischemia , requiring a left popliteal and SFA thrombectomy as well as a compartment fasciotomy, with eventual recovery and discharge, but with recurrent ischemia to the left leg requiring a left AKA on 05/28/2017. Left AKA stump infection in 06/2017 s/p I&D, debridement and washout x [address] Crystal who presented to the ED on 10/26/17 with c/o loss of sensation in his left stump where he saw bone coming out of the wound. He was scheduled to be taken to the OR on Wednesday10/29/17, however, his hospital course was complicated by acute hypoxic respiratory failure thought to be multifactorial 2/2 requiring intubation for airway protection. After he was aggressively diuresed, and stabilized, he was taken to the OR on 11/05/17 and underwent the revision of left AKA stump and placement of negative pressure dressing by Dr. Crystal. Extubated 11/10/17. Assessment/Plan: Respiratory: Acute hypoxic respiratory failure resolved, was likely 2/2 fluid overload, and or pneumonia. Tx'ed w/ Unasyn, with adequate clinial improvement. Continues to have fluid overload, and would need diuresis prn Lower respiratory culture showing mixed francisco moderate growth of pseudomonas and light growth of Proteus mirabilis Infectious: Polymicrobial osteomyelitis: Normal white count. OR cultures showed growth of multiple organisms including proteus, enterococcus, Pseudomonas and Enterobacter which are damon senstive. ID on board recommending switching antibiotics from Zosyn to Ampicillin 2 g IV every 6 hours,Ciprofloxacin 750 mg po every 12 hours and postop baseline ESR and x-ray of the left AKA stump. Circulatory: Left IJ in place, on Levophed to maintain mean arterial blood pressure of > 65mmHg. Echo shows normal EF of 60% with impaired LV relaxation. Mild mitral regurgitation. Trop and ECG - no evidence of ischemic changes. Cardiology on board. Hematology- Low H&H, which is stable for now. Hb 8.4. History of DVT in the past on the left LE x2, and right fem-pop bypass. currently on lovenox. Repeat US LLE shows DVT, and unsure, if this is new vs old, regardless this needs to be tx'ed. TSH, FT4 WNL folate and Vitamin B12, WNL. Iron studies c/w anemia of chronic disease. Metabolic- Swallow eval passed and diet advanced as tolerated. For alcohol dependence, he is on CIWA. No active ativan order for now. Stage 3 decubitus ulcers present on buttocks bilaterally. Neurology- Eye exam has findings s/o left corneal ulcer for which he is on topical abx. He should be monitored closely, for resolution since there is a possibility of uveitis, and risk of opthalmitis which is an emergency. Dr. Putnam on board. DVT PPx- lovenox GI Ppx- Protonix FC Problem List: 1. ETOH ABUSE 2. Osteomyelitis 3. Hypotension Pain Ratin Tomorrow's Labs & Rationales: icu/cbc Plan DVT/Prophylaxis: pharmacological
[2017-11-10 08:00] VITALS: BP 104/60
--- NOTE | 2017-11-10 09:45 | PN- Infect Dx ---
Subjective Subjective: Afebrile. He remains on low-dose pressors for hypotension. He was extubated yesterday. He does not offer any complaints at this time. Objective Last 24 Hrs of Vital Signs/I&O Vital Signs Date Time Temp Pulse Resp B/P B/P Pulse O2 O2 Flow FiO2 Mean Ox Delivery Rate 11/10 0438 64 20 100/64 11/10 0400 100 Nasal 2.0L Cannula 11/10 0052 97.9 65 20 90/60 11/10 0000 100 Nasal 2.0L Cannula 11/10 0000 97.9 68 20 90/60 100 Nasal 2.0L Cannula 11/09 2049 98 Nasal 3.0L Cannula 11/09 2000 97 Nasal 3.0L Cannula 11/09 1600 99 Nasal 3.0L Cannula 11/09 1600 98.0 73 13 90/53 90 Nasal 3.0L Cannula 11/09 1400 75 86/51 11/09 1200 97 Nasal 3.0L Cannula Intake & Output 11/10 1600 11/10 0800 11/10 0000 Intake Total 472 220 Output Total 985 700 Balance -513 -480 Intake, IV 472 220 Number 1 1 Bowel Movements Output, 15 Drainage Output, Urine 970 700 Physical Exam Other Physical Findings: He is awake and alert, mildly confused, but in no acute distress Neck left IJ triple-lumen catheter with no inflammation at the site Lungs bilateral rhonchi Heart regular rhythm with no murmur Extremities left AKA incision clean, with no erythema; wound VAC in place Meyer catheter remains in place Results Last 24 Hours of Lab Results: Laboratory Tests 11/10 11/10 11/09 11/09 0440 0045 1720 1650 Chemistry Sodium (137 - 145 mmol/L) 135 L 135 L Potassium (3.5 - 5.1 mmol/L) 3.7 3.3 L Chloride (98 - 107 mmol/L) 100 100 Carbon Dioxide (22 - 30 mmol/L) 29 29 Anion Gap (5 - 16) 6 7 BUN (9 - 20 mg/dL) 6 L 6 L Creatinine (0.7 - 1.2 mg/dL) 0.3 L 0.3 L Estimated GFR (>60 ml/min) > 60 > 60 BUN/Creatinine Ratio (7 - 25 %) 20.0 Glucose (65 - 99 mg/dL) 92 Calcium (8.4 - 10.2 mg/dL) 8.0 L Phosphorus (2.5 - 4.5 mg/dL) 4.0 Magnesium (1.6 - 2.3 mg/dL) 2.0 Total Bilirubin (0.2 - 1.3 mg/dL) 0.5 AST (17 - 59 U/L) 27 ALT (21 - 72 U/L) 44 Albumin (3.5 - 5.0 g/dL) 2.2 L Cortisol PM Sample (1.7 - 14.1) 24.0 H 12.8 Hematology CBC w Diff NO MAN DIFF REQ WBC (4.8 - 10.8 /CUMM) 9.6 RBC (4.70 - 6.10 /CUMM) 2.90 L Hgb (14.0 - 18.0 G/DL) 8.4 L Hct (42 - 52 %) 25.5 L MCV (80.0 - 94.0 FL) 88.0 MCH (27.0 - 31.0 PG) 29.0 MCHC (33.0 - 37.0 G/DL) 33.0 RDW (11.5 - 14.5 %) 22.4 H Plt Count (130 - 400 /CUMM) 454 H MPV (7.4 - 10.4 FL) 8.0 Gran % (42.2 - 75.2 %) 75.8 H Lymphocytes % (20.5 - 51.1 %) 16.2 L Monocytes % (1.7 - 9.3 %) 6.0 Eosinophils % (0 - 5 %) 1.2 Basophils % (0.0 - 2.0 %) 0.8 Absolute Granulocytes (1.4 - 6.5 /CUMM) 7.3 H Absolute Lymphocytes (1.2 - 3.4 /CUMM) 1.6 Absolute Monocytes (0.10 - 0.60 /CUMM) 0.6 Absolute Eosinophils (0.0 - 0.7 /CUMM) 0.1 Absolute Basophils (0.0 - 0.2 /CUMM) 0.1 11/09 11/09 11/09 1430 1200 1105 Blood Gas pH (7.35 - 7.45 PH) 7.49 H pCO2 (35 - 45 TORR) 36 pO2 (80 - 100 TORR) 109 H HCO3 (21 - 28 MEQ/L) 27 ABG O2 Sat (Measured) (>96.0 %) 98.0 P-50 (Temp Corrected) N Carboxyhemoglobin (1.5 - 5.0 %) 0.8 L O2 Concentration % 30% Temperature (97.0 - 100.0 FARH) 98.2 O2 Delivery Method VENT Vent Mode CPAP Expiratory Pressure (CMH2O/P) 5 Pressure Support (CMH2O/P) 6 Chemistry Cortisol PM Sample Cancelled Coagulation APTT Cancelled Miscellaneous Phlebotomy Draw Site RIGHT RADIAL Pathology of the left AKA stump reveals bone with acute osteomyelitis Last 24 Hours of Rahat Results: OR culture November 05 labeled left femur positive for Enterococcus sensitive to Ampicillin, Proteus sensitive to all antibiotics tested, Pseudomonas sensitive to Ceftazidime, Zosyn, Ciprofloxacin and Meropenem, Enterobacter sensitive to Ceftazidime, Ciprofloxacin, Zosyn and Meropenem and diphtheroids Sputum culture November 07 positive for Pseudomonas sensitive to Ceftazidime, Ciprofloxacin, Zosyn and Meropenem and Proteus sensitive to all antibiotics tested Blood cultures 2 November 07 negative Assessment/Plan Impression: Overall improved, status post successful extubation yesterday, with temperatures remaining normal and white blood cell count also now normal, on Zosyn Day 3 of treatment for a polymicrobial osteomyelitis of the left femur now 5 days status post left AKA stump revision. His sputum culture is also positive for Proteus and Pseudomonas and, though of unclear significance, the antibiotics for his osteomyelitis will cover this culture as well. Suggestion: 1. Would pursue placement of a PICC (and remove left IJ triple-lumen catheter) 2. Remove Meyer catheter 3. Would obtain a postop baseline ESR and x-ray of the left AKA stump 4. Discontinue Zosyn 5. Begin Ampicillin 2 g IV every 6 hours and Ciprofloxacin 750 mg po every 12 hours
--- NOTE | 2017-11-10 10:41 | PN- CRCU ---
Subjective HPI/Critical Care Issues: Afebrile. He remains on low-dose pressors for hypotension. He was extubated yesterday. He does not offer any complaints at this time. Objective Current Medications: Current Medications Sig/Lillie Start time Last Medication Dose Route Stop Time Status Admin Acetaminophen 650 MG Q8P PRN 10/26 2115 AC PO Albuterol Sulfate 3 ML BID 11/06 2200 AC 11/10 INH 1034 Albuterol Sulfate 3 ML Q4P PRN 10/28 1430 AC 10/31 INH 2131 Bisacodyl 10 MG Q12P PRN 11/02 0845 AC 11/07 [place] 1040 Ceftazidime 1,000 MG IQ8 11/08 0000 DC 11/09 IV 0751 Ciprofloxacin 2 GTT Q2H 11/08 2000 AC 11/10 OPH 0831 Cosyntropin 0.25 MG ONE ONE 11/09 1415 DC 11/09 IV 11/09 1416 1653 Enoxaparin Sodium 100 MG DAILY 11/09 1000 AC 11/10 SC 0855 Folic Acid 1 MG DAILY 10/27 1000 AC 11/09 PO 0920 Furosemide 20 MG Q8 11/09 2200 AC 11/10 IV 0611 Furosemide 20 MG Q6 11/08 1200 DC 11/09 IV 1213 Gabapentin 300 MG TID 10/26 2200 AC 11/09 PO 0920 Heparin Sodium 25,000 UNIT Q24H 11/07 1500 DC 11/09 (Porcine) IV 0401 Sodium Chloride 500 ML Hydromorphone HCl 0.2 MG ONCE ONE 11/10 0930 DC 11/10 IV 11/10 0931 0935 Hydromorphone HCl 0.4 MG Q6P PRN 10/27 0415 AC 11/10 IV 0848 Lorazepam 1 MG Q1 NEEDED PRN 10/29 0830 AC 11/08 IV 1720 Lorazepam 0 Q1P PRN 10/26 2200 DC 11/05 IV 2116 Magnesium Sulfate 1 GM ONCE ONE 11/09 1145 DC 11/09 Dextrose/Water 100 ML IV 11/09 1544 1213 Multivitamins 15 ML DAILY 10/29 1000 AC 11/09 PO 0920 Naloxone HCl 0.4 MG .STK-MED ONE 11/10 0205 DC IM 11/10 0206 Naloxone HCl 0.4 MG .STK-MED ONE 11/10 0203 DC IM 11/10 0204 Non-Formulary 0 SEE ADMIN CRITERIA 11/09 1200 CAN Medication ANY Norepinephrine 4 MG Q10H 11/07 1300 AC 11/10 Sodium Chloride 250 ML IV 0438 Pantoprazole Sodium 40 MG DAILY 10/29 1000 AC 11/10 IV 0855 Phosphate 250 MG PC AND AT BEDTIME 11/06 0900 AC 11/09 PO 0920 Piperacillin Sod/ 4.5 GM Q6H 11/09 1230 AC 11/10 Tazobactam Sod IV 0625 Sodium Chloride 100 ML Polyethylene Glycol 17 GM DAILY 11/02 1000 AC 11/09 PO 0920 Polymyxin/ 2 GTT Q2H 11/08 2100 AC 11/10 Trimethoprim Sulfate OPH 0855 Potassium Chloride 10 MEQ Q1H 11/10 0315 CAN IV 11/10 0416 Potassium Chloride 20 MEQ ONCE ONE 11/10 0315 DC 11/10 IV 11/10 0316 0315 Pravastatin Sodium 20 MG 1700 10/27 1700 AC 11/08 PO 1653 Scopolamine HBr 1 PAT Q72H 11/06 1400 AC 11/09 TOP 1400 Senna 187 MG AT BEDTIME 11/02 2200 AC 11/08 PO 2222 Thiamine HCl 100 MG DAILY 10/27 1000 AC 11/09 PO 0920 Vancomycin HCl 1,000 MG Q12 11/07 2200 DC 11/09 Dextrose/Water 250 ML IV 0920 Vital Signs & I&O Last 24 Hrs of Vitals and I&O: Vital Signs Date Time Temp Pulse Resp B/P B/P Pulse O2 O2 Flow FiO2 Mean Ox Delivery Rate 11/10 1035 100 Nasal 2.0L Cannula 11/10 0438 64 20 100/64 11/10 0400 100 Nasal 2.0L Cannula 11/10 0052 97.9 65 20 90/60 11/10 0000 100 Nasal 2.0L Cannula 11/10 0000 97.9 68 20 90/60 100 Nasal 2.0L Cannula 11/09 2049 98 Nasal 3.0L Cannula 11/09 2000 97 Nasal 3.0L Cannula 11/09 1600 99 Nasal 3.0L Cannula 11/09 1600 98.0 73 13 90/53 90 Nasal 3.0L Cannula 11/09 1400 75 86/51 11/09 1200 97 Nasal 3.0L Cannula Intake & Output 11/10 1600 11/10 0800 11/10 0000 Intake Total 472 220 Output Total 985 700 Balance -513 -480 Intake, IV 472 220 Number 1 1 Bowel Movements Output, 15 Drainage Output, Urine 970 700 Laboratory Tests 11/10 11/10 11/09 11/09 0440 0045 1720 1650 Chemistry Sodium (137 - 145 mmol/L) 135 L 135 L Potassium (3.5 - 5.1 mmol/L) 3.7 3.3 L Chloride (98 - 107 mmol/L) 100 100 Carbon Dioxide (22 - 30 mmol/L) 29 29 Anion Gap (5 - 16) 6 7 BUN (9 - 20 mg/dL) 6 L 6 L Creatinine (0.7 - 1.2 mg/dL) 0.3 L 0.3 L Estimated GFR (>60 ml/min) > 60 > 60 BUN/Creatinine Ratio (7 - 25 %) 20.0 Glucose (65 - 99 mg/dL) 92 Calcium (8.4 - 10.2 mg/dL) 8.0 L Phosphorus (2.5 - 4.5 mg/dL) 4.0 Magnesium (1.6 - 2.3 mg/dL) 2.0 Total Bilirubin (0.2 - 1.3 mg/dL) 0.5 AST (17 - 59 U/L) 27 ALT (21 - 72 U/L) 44 Albumin (3.5 - 5.0 g/dL) 2.2 L Cortisol PM Sample (1.7 - 14.1) 24.0 H 12.8 Hematology CBC w Diff NO MAN DIFF REQ WBC (4.8 - 10.8 /CUMM) 9.6 RBC (4.70 - 6.10 /CUMM) 2.90 L Hgb (14.0 - 18.0 G/DL) 8.4 L Hct (42 - 52 %) 25.5 L MCV (80.0 - 94.0 FL) 88.0 MCH (27.0 - 31.0 PG) 29.0 MCHC (33.0 - 37.0 G/DL) 33.0 RDW (11.5 - 14.5 %) 22.4 H Plt Count (130 - 400 /CUMM) 454 H MPV (7.4 - 10.4 FL) 8.0 Gran % (42.2 - 75.2 %) 75.8 H Lymphocytes % (20.5 - 51.1 %) 16.2 L Monocytes % (1.7 - 9.3 %) 6.0 Eosinophils % (0 - 5 %) 1.2 Basophils % (0.0 - 2.0 %) 0.8 Absolute Granulocytes (1.4 - 6.5 /CUMM) 7.3 H Absolute Lymphocytes (1.2 - 3.4 /CUMM) 1.6 Absolute Monocytes (0.10 - 0.60 /CUMM) 0.6 Absolute Eosinophils (0.0 - 0.7 /CUMM) 0.1 Absolute Basophils (0.0 - 0.2 /CUMM) 0.1 11/09 11/09 11/09 1430 1200 1105 Blood Gas pH (7.35 - 7.45 PH) 7.49 H pCO2 (35 - 45 TORR) 36 pO2 (80 - 100 TORR) 109 H HCO3 (21 - 28 MEQ/L) 27 ABG O2 Sat (Measured) (>96.0 %) 98.0 P-50 (Temp Corrected) N Carboxyhemoglobin (1.5 - 5.0 %) 0.8 L O2 Concentration % 30% Temperature (97.0 - 100.0 FARH) 98.2 O2 Delivery Method VENT Vent Mode CPAP Expiratory Pressure (CMH2O/P) 5 Pressure Support (CMH2O/P) 6 Chemistry Cortisol PM Sample Cancelled Coagulation APTT Cancelled Miscellaneous Phlebotomy Draw Site RIGHT RADIAL 11/09 11/09 11/09 0700 0400 0000 Blood Gas pH (7.35 - 7.45 PH) 7.49 H pCO2 (35 - 45 TORR) 37 pO2 (80 - 100 TORR) 127 H HCO3 (21 - 28 MEQ/L) 28 ABG O2 Sat (Measured) (>96.0 %) 98.0 Carboxyhemoglobin (1.5 - 5.0 %) 0.3 L O2 Concentration % .3 Respiration Rate (BPM) 14 O2 Delivery Method VENT Vent Mode AC Expiratory Pressure (CMH2O/P) 5 Tidal Volume (CC) 500 Chemistry Sodium (137 - 145 mmol/L) 133 L Potassium (3.5 - 5.1 mmol/L) 4.1 Chloride (98 - 107 mmol/L) 97 L Carbon Dioxide (22 - 30 mmol/L) 28 Anion Gap (5 - 16) 8 BUN (9 - 20 mg/dL) 7 L Creatinine (0.7 - 1.2 mg/dL) 0.3 L Estimated GFR (>60 ml/min) > 60 Glucose (65 - 99 mg/dL) 111 H Calcium (8.4 - 10.2 mg/dL) 7.8 L Phosphorus (2.5 - 4.5 mg/dL) 4.2 Magnesium (1.6 - 2.3 mg/dL) 1.7 Total Bilirubin (0.2 - 1.3 mg/dL) 0.3 AST (17 - 59 U/L) 46 ALT (21 - 72 U/L) 52 Albumin (3.5 - 5.0 g/dL) 2.1 L Coagulation APTT (25 - 37 SEC) 66 H Hematology CBC w Diff NO MAN DIFF REQ WBC (4.8 - 10.8 /CUMM) 12.7 H RBC (4.70 - 6.10 /CUMM) 2.82 L Hgb (14.0 - 18.0 G/DL) 8.2 L Hct (42 - 52 %) 24.9 L MCV (80.0 - 94.0 FL) 88.5 MCH (27.0 - 31.0 PG) 29.2 MCHC (33.0 - 37.0 G/DL) 33.0 RDW (11.5 - 14.5 %) 23.5 H Plt Count (130 - 400 /CUMM) 459 H MPV (7.4 - 10.4 FL) 8.3 Gran % (42.2 - 75.2 %) 75.4 H Lymphocytes % (20.5 - 51.1 %) 16.0 L Monocytes % (1.7 - 9.3 %) 6.5 Eosinophils % (0 - 5 %) 1.9 Basophils % (0.0 - 2.0 %) 0.2 Absolute Granulocytes (1.4 - 6.5 /CUMM) 9.6 H Absolute Lymphocytes (1.2 - 3.4 /CUMM) 2.0 Absolute Monocytes (0.10 - 0.60 /CUMM) 0.8 H Absolute Eosinophils (0.0 - 0.7 /CUMM) 0.2 Absolute Basophils (0.0 - 0.2 /CUMM) 0 Miscellaneous Phlebotomy Draw Site RIGHT RADIAL 11/08 11/08 2250 1215 Chemistry Sodium (137 - 145 mmol/L) 133 L Potassium (3.5 - 5.1 mmol/L) 4.1 Chloride (98 - 107 mmol/L) 99 Carbon Dioxide (22 - 30 mmol/L) 29 Anion Gap (5 - 16) 5 BUN (9 - 20 mg/dL) 6 L Creatinine (0.7 - 1.2 mg/dL) 0.3 L Estimated GFR (>60 ml/min) > 60 BUN/Creatinine Ratio (7 - 25 %) 20.0 Coagulation APTT (25 - 37 SEC) 83 H Microbiology Date/Time Procedure - Status Source Growth 11/08 1800 Head/Neck Culture - RES HEAD/NECK 11/08 1800 Gram Stain - RES HEAD/NECK 11/07 1645 Respiratory Culture - COMP LOWER RESP PSEUDOMONAS AERUGINOSA PROTEUS MIRABILIS 11/07 1645 Gram Stain - COMP LOWER RESP 11/07 1605 Blood Culture - RES BLOOD 11/07 1600 Urine Culture - COMP URINE ROUT 11/07 1600 Blood Culture - RES BLOOD Impression/Plan Impression/Plan Impression/Plan: Exam General Appearance: no apparent distress, alert, awake Head: atraumatic, Left conjunctiva inflammed with some yellow discharge, consistent with a corneal ulcer Ears, Nose, Throat: normal pharynx, normal ENT inspection Neck: normal inspection, supple Respiratory: normal breath sounds, chest non-tender, lungs clear Cardiovascular: regular rate/rhythm, S1-S2 normal Gastrointestinal: normal bowel sounds, soft, non-tender, no organomegaly Extremities: left AKA stump with dressing Cranial Nerves: normal hearing, PERRL, no facial asymmetry Skin: intact, normal color Skin Temp/Moisture Exam: Warm/Dry Sepsis Skin Exam (color): Normal for Ethnicity IMPRESSION This is a gentleman with post revision of amputation with Resolved cute hypoxemic respiratory failure which appears to be multifactorial which includes significant pulmonary edema with probable superimposed pneumonia, with pseudomonas and proteus pna * Significant peripheral vascular disease status post surgery * Corneal ulcer now on topical antibiotics followed by ophthalmology * Lower extremity DVT in the left side now on heparin drip * Previous significant COPD * History of coronary artery disease with an ST segment elevation NH in the past with no clinical active ischemia at this time * Significant alcohol dependence in the past * Significant gross body fluid overload, slowly improving * Sepsis continues to be on low-dose norepinephrine RECOMMENDATION Cont iv abx per id Continue intravenous antibiotics and local antibiotics for the eye Continue low-dose norepinephrine Cont lovenox for now Continue low-dose Lasix 20 mg IV every 12 hours Keep his potassium more than 4 Replace his divalent appropriately Patient continues to be critically ill total time spent 40 minutes
[2017-11-10 12:00] VITALS: BP 80/50
--- NOTE | 2017-11-10 15:26 | Miscellaneous Note ---
Subjective Subjective: Pt says his eye is clearer Review of Systems: Unchanged Objective Vital Signs and I&Os Vital Signs Date Time Temp Pulse Resp B/P B/P Pulse O2 O2 Flow FiO2 Mean Ox Delivery Rate 11/10 0946 96 124/83 11/10 0839 94 Nasal 2.0L Cannula 11/10 0800 97.8 94 18 128/88 98 Nasal 2.0L Cannula 11/10 0800 94 Nasal 2.0L Cannula 11/10 0400 95 Nasal 2.0L Cannula 11/10 0000 97.1 108 18 120/80 96 Nasal 2.0L Cannula 11/10 0000 96 Nasal 2.0L Cannula 11/09 2053 96 Nasal 1.0L Cannula 11/09 2000 96 Nasal 2.0L Cannula 11/09 1600 95 Nasal 2.0L Cannula 11/09 1600 98.1 91 14 122/57 95 Nasal 2.0L Cannula 11/09 1316 96 Nasal 2.0L Cannula 11/09 1200 96 Nasal 1.0L Cannula Intake & Output 11/10 1600 11/10 0800 11/10 0000 11/09 1600 11/09 0800 11/09 0000 Intake Total 120 730 380 620 Output Total 600 400 325 Balance -480 730 -20 -325 620 Intake, IV 250 0 500 Intake, Oral 120 480 380 120 Number 1 Bowel Movements Output, Urine 600 400 325 Patient 130 lb Weight Weight Reported by Patient Measurement Method Physical Exam: External exam is remarkable for mild injection. Cornea is slighly more opacified but the infiltrate appears small. It now only stains in a small area inferiorly Assessment/Plan Assessment/Plan Corneal infection improving on q2h Oflox and [id number]. No growth from culture at 24h. Will continue drops as is until 6 PM then cut both to q4h alternating. Discussed with resident and nurse. Will see pt on Wednesday NOTE ENTERED BY: [place] IBRAHIM,Sterling Germain DATE/TIME ENTERED:11/10/171131 REPORT NUMBER:[id number] CONFIDENTIAL, DO NOT COPY WITHOUT APPROPRIATE AUTHORIZATION.
[2017-11-10 16:00] VITALS: BP 90/60
--- NOTE | 2017-11-10 19:24 | RADIOLOGY REPORT ---
EXAMINATION: XR HIP, LEFT CLINICAL INFORMATION: Status post left AKA. Baseline postop COMPARISON: Left femur 10/26/2017 TECHNIQUE: Two views of the left hip. FINDINGS: Patient has had an [id number]-[id number] amputation. No bone destruction. Surgical drain in the soft tissues at the end of the stump with surgical clips. There are vascular clips in the soft tissues as well. Mild joint narrowing of the hip joint. IMPRESSION: Status post bjrvk-[id number] amputation.
[2017-11-11] VITALS: BP 113/61
[2017-11-11 04:59] LABS: ABSOLUTE BASOPHIL COUNT 0.1 /CUMM (0.0-0.2); ABSOLUTE EOSINOPHIL COUNT 0.3 /CUMM (0.0-0.7); ABSOLUTE GRANULOCYTE CT 4.8 /CUMM (1.4-6.5); ABSOLUTE LYMPH COUNT 1.8 /CUMM (1.2-3.4); ABSOLUTE MONOCYTE COUNT 0.5 /CUMM (0.10-0.60); BASOPHIL % 0.8 % (0.0-2.0); EOSINOPHIL % 4.4 % (0-5); GRANULOCYTE % 64.1 % (42.2-75.2); HEMATOCRIT 26.2 % (42-52); MEAN CORPUSCULAR HGB 28.6 PG (27.0-31.0); MEAN CORPUSCULAR HGB CONC 32.2 G/DL (33.0-37.0); MEAN PLATELET VOLUME 7.6 FL (7.4-10.4); PLATELET COUNT 484 /CUMM (130-400); RBC DISTRIBUTION WIDTH 22.3 % (11.5-14.5); RED BLOOD CELL CT 2.95 /CUMM (4.70-6.10); WHITE BLOOD CELL COUNT 7.4 /CUMM (4.8-10.8)
[2017-11-11 08:00] VITALS: BP 104/74
--- NOTE | 2017-11-11 08:22 | PN- Resident CRCU ---
Subjective HPI/CRCU Issues: Seen and examined patient. offers no complaints. continues to be confused Consent obtained from sister for PICC/midline 24 Hour Events: no overnight events reported Tm 98.0 HR 64-96 Normal sinus rhythm RR 22-22 Systolic blood pressure 80-104, diastolic blood pressure 50-60, currently I/O [id number] total [id number] Objective Vital Signs & I&O Last 8 Hrs of Vitals and I&O: Intake & Output 11/11 1600 Intake Total 220 Output Total 1200 Balance -980 Intake, IV 100 Intake, Oral 120 Output, Urine 1200 Exam General Appearance: alert, awake Respiratory: decreased breath sounds Cardiovascular: regular rate/rhythm Gastrointestinal: normal bowel sounds, soft, non-tender Extremities: no edema, left BKA stump, no signs of infections of skin Weaning Parameters NIF: 16 Minute Volume: 8.52 Resp rate: 14 Vt: 705 Heart Rate: 85 Weaning Schedule Start Time: 0915 Minute Volume: 7.61 Resp Rate: 12 Vt: 450 Heart Rate: 82 End Time: 1130 Minute Volume: 13.2 Resp Rate: 26 Vt: 650 Heart Rate: 90 Current Medications: Current Medications Sig/Lillie Start time Last Medication Dose Route Stop Time Status Admin Acetaminophen 650 MG Q8P PRN 10/26 2115 AC PO Albuterol Sulfate 3 ML BID 11/06 2200 AC 11/11 INH 1215 Albuterol Sulfate 3 ML Q4P PRN 10/28 1430 AC 10/31 INH 2131 Ampicillin 2,000 MG Q6 11/10 1800 AC 11/11 Sodium Chloride 100 ML IV 1818 Bisacodyl 10 MG Q12P PRN 11/02 0845 AC 11/07 IA 1040 Ciprofloxacin 2 GTT Q2 11/11 1630 AC 11/11 OPH 1818 Ciprofloxacin 750 MG Q12 11/10 2200 DC PO 11/14 2159 Ciprofloxacin 750 MG Q12 11/10 2200 AC 11/11 PO 11/14 2159 1143 Ciprofloxacin 2 GTT Q4 11/10 1999 DC 11/11 OPH 1146 Ciprofloxacin 2 GTT Q2H 11/08 1999 DC 11/10 OPH 1755 Enoxaparin Sodium 100 MG DAILY 11/09 1000 AC 11/11 SC 1142 Fluorescein Sodium 1 MG ONCE ONE 11/11 1445 DC OPH 11/11 1446 Folic Acid 1 MG DAILY 10/27 1000 AC 11/11 PO 1144 Furosemide 20 MG Q12 11/10 2200 AC 11/11 IV 1143 Gabapentin 300 MG TID 10/26 2200 AC 11/11 PO 1818 Hydromorphone HCl 0.4 MG Q6P PRN 10/27 0415 AC 11/11 IV 1042 Lorazepam 1 MG Q1 NEEDED PRN 10/29 0830 AC 11/11 IV 1041 Multivitamins 15 ML DAILY 10/29 1000 AC 11/11 PO 1143 Norepinephrine 4 MG Q10H 11/07 1300 AC 11/10 Sodium Chloride 250 ML IV 2114 Pantoprazole Sodium 40 MG DAILY 10/29 1000 AC 11/11 IV 1142 Phosphate 250 MG PC AND AT BEDTIME 11/06 0900 AC 11/11 PO 1143 Polyethylene Glycol 17 GM DAILY 11/02 1000 AC 11/11 PO 1142 Polymyxin/ 2 GTT Q2 11/11 1700 AC 11/11 Trimethoprim Sulfate OPH 1819 Polymyxin/ 2 GTT Q4 11/10 2100 DC 11/11 Trimethoprim Sulfate OPH 1145 Polymyxin/ 2 GTT Q2H 11/08 2100 DC 11/10 Trimethoprim Sulfate OPH 1651 Pravastatin Sodium 20 MG 1700 10/27 1700 AC 11/11 PO 1818 Scopolamine HBr 1 PAT Q72H 11/06 1400 AC 11/09 TOP 1400 Senna 187 MG AT BEDTIME 11/02 2200 AC 11/08 PO 2222 Thiamine HCl 100 MG DAILY 10/27 1000 AC 11/11 PO 1142 Impression/Plan Impression/Problem List Impression: 62-year-old gentleman with PMHx of alcohol abuse, asthma and recurrent DVT on Eliquis, h/o UGI bleed, GERD, neuropathy, NSTEMI, left lower extremity ischemia , requiring a left popliteal and SFA thrombectomy as well as a compartment fasciotomy, with eventual recovery and discharge, but with recurrent ischemia to the left leg requiring a left AKA on 05/28/2017. Left AKA stump infection in 06/2017 s/p I&D, debridement and washout x [address] Crystal who presented to the ED on 10/26/17 with c/o loss of sensation in his left stump where he saw bone coming out of the wound. He was scheduled to be taken to the OR on Wednesday10/29/17, however, his hospital course was complicated by acute hypoxic respiratory failure thought to be multifactorial 2/2 requiring intubation for airway protection. After he was aggressively diuresed, and stabilized, he was taken to the OR on 11/05/17 and underwent the revision of left AKA stump and placement of negative pressure dressing by Dr. Crystal. Extubated 11/10/17. Assessment/Plan: Respiratory: Acute hypoxic respiratory failure resolved, was likely 2/2 fluid overload, and or pneumonia. Tx'ed w/ Unasyn, with adequate clinial improvement. Continues to have fluid overload, and would need diuresis prn Lower respiratory culture showing mixed francisco moderate growth of pseudomonas and light growth of Proteus mirabilis Infectious: Polymicrobial osteomyelitis: Normal white count. OR cultures showed growth of multiple organisms including proteus, enterococcus, Pseudomonas and Enterobacter which are damon senstive. ID on board on Ampicillin 2 g IV every 6 hours,Ciprofloxacin 750 mg po every 12 hours and postop baseline ESR = 116 Circulatory: Left IJ removed today off pressors Echo shows normal EF of 60% with impaired LV relaxation. Mild mitral regurgitation. Trop and ECG - no evidence of ischemic changes. Cardiology on board. Hematology- Low H&H, which is stable for now. Hb 8.4. History of DVT in the past on the left LE x2, and right fem-pop bypass. currently on lovenox. Repeat US LLE shows DVT, and unsure, if this is new vs old, regardless this needs to be tx'ed. TSH, FT4 WNL folate and Vitamin B12, WNL. Iron studies c/w anemia of chronic disease. Metabolic- Stage 3 decubitus ulcers present on buttocks bilaterally. Neurology- Eye exam has findings s/o left corneal ulcer for which he is on topical abx. Per Dr. Putnam corneal uler not responding to antibiotics. Culture is negative. Could have fungal or herpetic viral infection. Advised attending Dr. Pérez that he should be transfered to [place] where he can be followed more closely by the eye service DVT PPx- lovenox GI Ppx- Protonix FC Problem List: 1. Osteomyelitis 2. Corneal ulcer Pain Ratin Tomorrow's Labs & Rationales: none required Plan DVT/Prophylaxis: pharmacological
--- NOTE | 2017-11-11 09:05 | PN- Student ---
Subjective Subjective: Interim: No acute overnight events. Pt alert and conversant. No new complaints. Reports pain at amputation site 04/05. Denies CP, SOB, headaches, abdominal pain. Objective Objective: Vital Signs Date Time Temp Pulse Resp B/P B/P Pulse O2 O2 Flow FiO2 Mean Ox Delivery Rate 11/11 0400 99 Nasal 2.0L Cannula 11/11 0000 96.9 66 22 113/61 100 Nasal 2.0L Cannula 11/11 0000 100 Nasal 2.0L Cannula 11/10 2114 75 96/41 11/10 2000 99 Nasal 2.0L Cannula 11/10 1926 95 Nasal 2.0L Cannula 11/10 1600 98.0 84 20 90/60 98 Nasal 2.0L Cannula 11/10 1600 98 Nasal 2.0L Cannula 11/10 1200 95 Nasal 2.0L Cannula 11/10 1200 98.6 90 20 80/50 95 Nasal 2.0L Cannula 11/10 1038 Ventilator 40% 11/10 1036 Ventilator 40% 11/10 1035 100 Nasal 2.0L Cannula Intake & Output 11/11 1600 11/11 0800 11/11 0000 Intake Total 238 455 Output Total 400 260 Balance -162 195 Intake, IV 238 255 Intake, Oral 0 200 Number 0 0 Bowel Movements Output, 0 10 Drainage Output, Urine 400 250 General: frail appearing male, laying in bed in NAD. HEENT: NCAT, opacity in left eye, no cervical lymphadenopathy. Pulm: slightly diminished breath sounds, no rubs/crackles CV: RRR, S1/S2 noted, no M/R/G/C , R DP pulse 1+ Abdom: nondistended, nontender to palpation, no guarding, no masses. MSK: left AKA stump with wound vac, right LE thin, overlying skin shiny. Skin: no new lesions, no echymosis/petechiae/purpura, skin color normal for ethnicity. Neuro: A&O x 2 self/place, no facial droop noted, motor and sensory intact LEs. Results Results: Laboratory Tests 11/11/17 0439: Anion Gap 7, Estimated GFR > 60, Glucose 85, Calcium 8.3 L, Phosphorus 4.0, Magnesium 2.0, Total Bilirubin 0.4, AST 22, ALT 32, Albumin 2.3 L, CBC w Diff NO MAN DIFF REQ, RBC 2.95 L, MCV 89.0, MCH 28.6, MCHC 32.2 L, RDW 22.3 H, MPV 7.6, Gran % 64.1, Lymphocytes % 23.6, Monocytes % 7.1, Eosinophils % 4.4, Basophils % 0.8, Absolute Granulocytes 4.8, Absolute Lymphocytes 1.8, Absolute Monocytes 0.5, Absolute Eosinophils 0.3, Absolute Basophils 0.1, ESR Westergren 116 H 11/10/17 0440: Anion Gap 6, Estimated GFR > 60, Glucose 92, Calcium 8.0 L, Phosphorus 4.0, Magnesium 2.0, Total Bilirubin 0.5, AST 27, ALT 44, Albumin 2.2 L, CBC w Diff NO MAN DIFF REQ, RBC 2.90 L, MCV 88.0, MCH 29.0, MCHC 33.0, RDW 22.4 H, MPV 8.0, Gran % 75.8 H, Lymphocytes % 16.2 L, Monocytes % 6.0, Eosinophils % 1.2, Basophils % 0.8, Absolute Granulocytes 7.3 H, Absolute Lymphocytes 1.6, Absolute Monocytes 0.6, Absolute Eosinophils 0.1, Absolute Basophils 0.1 11/10/17 0045: Anion Gap 7, Estimated GFR > 60, BUN/Creatinine Ratio 20.0 11/09/17 1720: Cortisol PM Sample 24.0 H 11/09/17 1650: Cortisol PM Sample 12.8 11/09/17 1430: Cortisol PM Sample Cancelled 11/09/17 1200: APTT Cancelled 11/09/17 1105: pH 7.49 H, pCO2 36, pO2 109 H, HCO3 27, ABG O2 Sat (Measured) 98.0, P-50 (Temp Corrected) N, Carboxyhemoglobin 0.8 L, O2 Concentration % 30%, Temperature 98.2 , O2 Delivery Method VENT, Vent Mode CPAP, Expiratory Pressure 5, Pressure Support 6, Phlebotomy Draw Site RIGHT RADIAL 11/09/17 0700: pH 7.49 H, pCO2 37, pO2 127 H, HCO3 28, ABG O2 Sat (Measured) 98.0, Carboxyhemoglobin 0.3 L, O2 Concentration % .3, Respiration Rate 14, O2 Delivery Method VENT, Vent Mode AC, Expiratory Pressure 5, Tidal Volume 500, Phlebotomy Draw Site RIGHT RADIAL 11/09/17 0400: Anion Gap 8, Estimated GFR > 60, Glucose 111 H, Calcium 7.8 L, Phosphorus 4.2, Magnesium 1.7, Total Bilirubin 0.3, AST 46, ALT 52, Albumin 2.1 L, CBC w Diff NO MAN DIFF REQ, RBC 2.82 L, MCV 88.5, MCH 29.2, MCHC 33.0, RDW 23.5 H, MPV 8.3, Gran % 75.4 H, Lymphocytes % 16.0 L, Monocytes % 6.5, Eosinophils % 1.9, Basophils % 0.2, Absolute Granulocytes 9.6 H, Absolute Lymphocytes 2.0, Absolute Monocytes 0.8 H, Absolute Eosinophils 0.2, Absolute Basophils 0 11/09/17 0000: APTT 66 H 11/08/17 2250: Anion Gap 5, Estimated GFR > 60, BUN/Creatinine Ratio 20.0 11/08/17 1215: APTT 83 H Microbiology 11/08 1800 HEAD/NECK: Head/Neck Culture - RES 11/08 1800 HEAD/NECK: Gram Stain - RES Assessment/Plan Assessment: Pt is a 62 yo WM with a hx of COPD, alcohol abuse, tobacco use (10 pack-years), recurrent DVT, s/p left AKA due to ischemia, sent to on 10/26/17 by vascular surgery for revision/debridement of wound after dehiscence. Labs revealed a white count, became hypotensive, febrile, CXR revealed diffuse interstitial opacities, pulmonary edema, diuresed and eventually placed on BiPAP and then intubated on 10/29/17 for acute hypoxemic respiratory failure. He was taken for the wound revision and debridement 11/05/17. OR left femur culture positive for g + cocci and g - rods on 11/07/17, thus, started on vanco + ceftazidime. He was extubated on 11/09/17 but remains on levophed for hypotension. Recently, has been dx'ed with a left corneal ulcer. Plan: Cardiovascular - Septic Shock - continue low dose norepinephrine Respiratory - Acute hypoxemic resp failure 2/ Pulmonary edema + PNA resolved now. - continue low dose lasix 20mg IV q12h - edema improving - continue albuterol nebulizer treatment BID MSK- L AKA wound dehiscence - continue IV ampicillin + cipro per ID - appropriate dressing changes and reassess wound vac regularly. Ophthalmological- - per consult the left cornea is slightly more opacified but infiltrate is small as it only stains in small area. - culture displays no grow as of yet. - continue q2h oflaxacin + polytrim opthal drops until 6pm today then switch to q4h and alternate btwn the two drops. Renal - BUN/creat chronically low may be 2/2 to low protein intake "Beer potomania" as Na+ also borderline low and pt presents with generalized edema. - may consider nutrition consult to increase protein in diet - may consider urea tablets to address volume overload and risk of worsening hyponatremia. - K+ 4 today. - Monitor lytes , K+ to be maintained at 4+. Hematology - H/H stable at 8.4/26.2 - ESR 116 Prophylaxis: - continue Lovenox INGRIS Bedoya-S2 11/11/17
--- NOTE | 2017-11-11 10:04 | PN- CRCU ---
Subjective HPI/Critical Care Issues: The patient is awake and alert. He is shouting out intermittently. He follows commands. There were no overnight events reported. Objective Current Medications: Current Medications Sig/Lillie Start time Last Medication Dose Route Stop Time Status Admin Acetaminophen 650 MG Q8P PRN 10/26 2115 AC PO Albuterol Sulfate 3 ML BID 11/06 2200 AC 11/10 INH 1924 Albuterol Sulfate 3 ML Q4P PRN 10/28 1430 AC 10/31 INH 2131 Ampicillin 2,000 MG Q6 11/10 1800 AC 11/11 Sodium Chloride 100 ML IV 0558 Bisacodyl 10 MG Q12P PRN 11/02 0845 AC 11/07 TX 1040 Ciprofloxacin 750 MG Q12 11/10 2200 DC PO 11/14 2159 Ciprofloxacin 750 MG Q12 11/10 2200 AC 11/10 PO 11/14 2159 2237 Ciprofloxacin 2 GTT Q4 11/10 2000 AC 11/11 OPH 0602 Ciprofloxacin 2 GTT Q2H 11/08 2000 DC 11/10 OPH 1755 Enoxaparin Sodium 100 MG DAILY 11/09 1000 AC 11/10 SC 0855 Folic Acid 1 MG DAILY 10/27 1000 AC 11/09 PO 0920 Furosemide 20 MG Q12 11/10 2200 AC IV Furosemide 20 MG Q8 11/09 2200 DC 11/10 IV 0611 Gabapentin 300 MG TID 10/26 2200 AC 11/10 PO 2139 Hydromorphone HCl 0.4 MG Q6P PRN 10/27 0415 AC 11/10 IV 0848 Lorazepam 1 MG Q1 NEEDED PRN 10/29 0830 AC 11/10 IV 1105 Multivitamins 15 ML DAILY 10/29 1000 AC 11/09 PO 0920 Norepinephrine 4 MG Q10H 11/07 1300 AC 11/10 Sodium Chloride 250 ML IV 2114 Pantoprazole Sodium 40 MG DAILY 10/29 1000 AC 11/10 IV 0855 Phosphate 250 MG PC AND AT BEDTIME 11/06 0900 AC 11/10 PO 2113 Piperacillin Sod/ 4.5 GM Q6H 11/09 1230 DC 11/10 Tazobactam Sod IV 1240 Sodium Chloride 100 ML Polyethylene Glycol 17 GM DAILY 11/02 1000 AC 11/09 PO 0920 Polymyxin/ 2 GTT Q4 11/10 2100 AC 11/11 Trimethoprim Sulfate OPH 0558 Polymyxin/ 2 GTT Q2H 11/08 2100 DC 11/10 Trimethoprim Sulfate OPH 1651 Pravastatin Sodium 20 MG 1700 10/27 1700 AC 11/10 PO 1651 Scopolamine HBr 1 PAT Q72H 11/06 1400 AC 11/09 TOP 1400 Senna 187 MG AT BEDTIME 11/02 2200 AC 11/08 PO 2222 Thiamine HCl 100 MG DAILY 10/27 1000 AC 11/09 PO 0920 Vital Signs & I&O Last 24 Hrs of Vitals and I&O: Vital Signs Date Time Temp Pulse Resp B/P B/P Pulse O2 O2 Flow FiO2 Mean Ox Delivery Rate 11/11 0400 99 Nasal 2.0L Cannula 11/11 0000 96.9 66 22 113/61 100 Nasal 2.0L Cannula 11/11 0000 100 Nasal 2.0L Cannula 11/10 2114 75 96/41 11/10 2000 99 Nasal 2.0L Cannula 11/10 1926 95 Nasal 2.0L Cannula 11/10 1600 98.0 84 20 90/60 98 Nasal 2.0L Cannula 11/10 1600 98 Nasal 2.0L Cannula 11/10 1200 95 Nasal 2.0L Cannula 11/10 1200 98.6 90 20 80/50 95 Nasal 2.0L Cannula 11/10 1038 Ventilator 40% 11/10 1036 Ventilator 40% 11/10 1035 100 Nasal 2.0L Cannula Intake & Output 11/11 1600 11/11 0800 11/11 0000 Intake Total 238 455 Output Total 400 260 Balance -162 195 Intake, IV 238 255 Intake, Oral 0 200 Number 0 0 Bowel Movements Output, 0 10 Drainage Output, Urine 400 250 Physical Exam General Appearance: no distress, on mechanical ventilation, chronically ill Head: atraumatic, normal appearance Eyes: Bilateral: PERRL Neck: supple Respiratory: decreased breath sounds, crackles, rhonchi Cardiovascular: S1 and S2 heard, mild tachycardia Gastrointestinal: normal bowel sounds, soft, non-tender Extremities: left AKA, bandages in place Skin: normal color, warm/dry Results Last 24 Hrs of Lab Results: Laboratory Tests 11/11/17 0439: Anion Gap 7, Estimated GFR > 60, Glucose 85, Calcium 8.3 L, Phosphorus 4.0, Magnesium 2.0, Total Bilirubin 0.4, AST 22, ALT 32, Albumin 2.3 L, CBC w Diff NO MAN DIFF REQ, RBC 2.95 L, MCV 89.0, MCH 28.6, MCHC 32.2 L, RDW 22.3 H, MPV 7.6, Gran % 64.1, Lymphocytes % 23.6, Monocytes % 7.1, Eosinophils % 4.4, Basophils % 0.8, Absolute Granulocytes 4.8, Absolute Lymphocytes 1.8, Absolute Monocytes 0.5, Absolute Eosinophils 0.3, Absolute Basophils 0.1, ESR Westergren 116 H Impression/Plan Impression/Plan Impression/Plan: 1. Progressive respiratory failure - may be multifactorial. CXR shows bilateral opacities suggestive of pulmonary edema. Superimposed pneumonia. 2. PVD now with left stump dehiscence and exposed femur - surgery planned or Wednesday. 3. Alcohol dependence. 4. COPD. 5. History of CAD and NSTEMI. 6. LLE including thrombectomy. Recommendations: * Continue with electrolyte repletion as necessary. * Avoid sedating medications. Continue with pain control. * Continue with diuresis. Continue to follow cardiology recommendations. * Hold off on antibiotics. ID input appreciated. * Continue Heparin drip for therapeutic PTT. * Monitor on CIWA protocol. * MVI/thiamine/folate. * Patient passed swallowing evaluation - will continue with diet and feeding assistance. * DVT prophylaxis/GI prophylaxis at all times. * Downgrade from ICU later today if BP ok.
--- NOTE | 2017-11-11 10:36 | PN- Infect Dx ---
Subjective Subjective: Afebrile. He does not offer any complaints but he has been agitated. Objective Last 24 Hrs of Vital Signs/I&O Vital Signs Date Time Temp Pulse Resp B/P B/P Pulse O2 O2 Flow FiO2 Mean Ox Delivery Rate 11/11 0400 99 Nasal 2.0L Cannula 11/11 0000 96.9 66 22 113/61 100 Nasal 2.0L Cannula 11/11 0000 100 Nasal 2.0L Cannula 11/10 2114 75 96/41 11/10 2000 99 Nasal 2.0L Cannula 11/10 1926 95 Nasal 2.0L Cannula 11/10 1600 98.0 84 20 90/60 98 Nasal 2.0L Cannula 11/10 1600 98 Nasal 2.0L Cannula 11/10 1200 95 Nasal 2.0L Cannula 11/10 1200 98.6 90 20 80/50 95 Nasal 2.0L Cannula 11/10 1038 Ventilator 40% 11/10 1036 Ventilator 40% 11/10 1035 100 Nasal 2.0L Cannula Intake & Output 11/11 1600 11/11 0800 11/11 0000 Intake Total 238 455 Output Total 400 260 Balance -162 195 Intake, IV 238 255 Intake, Oral 0 200 Number 0 0 Bowel Movements Output, 0 10 Drainage Output, Urine 400 250 Physical Exam Other Physical Findings: He appears somewhat restless and mildly confused Neck left IJ triple lumen catheter with no inflammation at the site Lungs bilateral rhonchi Heart regular rhythm with no murmur Extremities left AKA incision clean, with no erythema; wound VAC in place Meyer catheter remains in place Results Last 24 Hours of Lab Results: Laboratory Tests 11/11 0439 Chemistry Sodium (137 - 145 mmol/L) 138 Potassium (3.5 - 5.1 mmol/L) 4.0 Chloride (98 - 107 mmol/L) 104 Carbon Dioxide (22 - 30 mmol/L) 27 Anion Gap (5 - 16) 7 BUN (9 - 20 mg/dL) 6 L Creatinine (0.7 - 1.2 mg/dL) 0.3 L Estimated GFR (>60 ml/min) > 60 Glucose (65 - 99 mg/dL) 85 Calcium (8.4 - 10.2 mg/dL) 8.3 L Phosphorus (2.5 - 4.5 mg/dL) 4.0 Magnesium (1.6 - 2.3 mg/dL) 2.0 Total Bilirubin (0.2 - 1.3 mg/dL) 0.4 AST (17 - 59 U/L) 22 ALT (21 - 72 U/L) 32 Albumin (3.5 - 5.0 g/dL) 2.3 L Hematology CBC w Diff NO MAN DIFF REQ WBC (4.8 - 10.8 /CUMM) 7.4 RBC (4.70 - 6.10 /CUMM) 2.95 L Hgb (14.0 - 18.0 G/DL) 8.4 L Hct (42 - 52 %) 26.2 L MCV (80.0 - 94.0 FL) 89.0 MCH (27.0 - 31.0 PG) 28.6 MCHC (33.0 - 37.0 G/DL) 32.2 L RDW (11.5 - 14.5 %) 22.3 H Plt Count (130 - 400 /CUMM) 484 H MPV (7.4 - 10.4 FL) 7.6 Gran % (42.2 - 75.2 %) 64.1 Lymphocytes % (20.5 - 51.1 %) 23.6 Monocytes % (1.7 - 9.3 %) 7.1 Eosinophils % (0 - 5 %) 4.4 Basophils % (0.0 - 2.0 %) 0.8 Absolute Granulocytes (1.4 - 6.5 /CUMM) 4.8 Absolute Lymphocytes (1.2 - 3.4 /CUMM) 1.8 Absolute Monocytes (0.10 - 0.60 /CUMM) 0.5 Absolute Eosinophils (0.0 - 0.7 /CUMM) 0.3 Absolute Basophils (0.0 - 0.2 /CUMM) 0.1 ESR Westergren (0 - 10 MM) 116 H Last 24 Hours of Rahat Results: Left eye culture November 08 negative Recent Imaging Studies: X-ray of the left hip/femur reveals no bone destruction Assessment/Plan Impression: Overall improved, with respiratory status stable status post successful extubation 2 days ago, with temperatures and white blood cell count remaining normal now on Ampicillin and Ciprofloxacin, Day 4 of treatment for a polymicrobial osteomyelitis of the left femur now 6 days status post left AKA stump revision. His sputum culture is also positive for Proteus and Pseudomonas and, though of unclear significance, the antibiotics for his osteomyelitis will cover this culture as well. Suggestion: 1. Would pursue placement of a PICC (and remove left IJ triple-lumen catheter) 2. Remove Meyer catheter 3. Continue Ampicillin and Ciprofloxacin to plan on a 4 week course of treatment
--- NOTE | 2017-11-11 15:51 | PN- Ophthalmology ---
Subjective Subjective: Re examined patient today and yesterday Objective Vital Signs and I&Os Vital Signs Date Time Temp Pulse Resp B/P B/P Pulse O2 O2 Flow FiO2 Mean Ox Delivery Rate 11/11 1220 94 Room Air Room Air 11/11 1200 95 11/11 0800 95 11/11 0800 97.0 70 20 104/74 95 Room Air 11/11 0400 99 Nasal 2.0L Cannula 11/11 0000 96.9 66 22 113/61 100 Nasal 2.0L Cannula 11/11 0000 100 Nasal 2.0L Cannula 11/10 2114 75 96/41 11/10 2000 99 Nasal 2.0L Cannula 11/10 1926 95 Nasal 2.0L Cannula 11/10 1600 98.0 84 20 90/60 98 Nasal 2.0L Cannula 11/10 1600 98 Nasal 2.0L Cannula Intake & Output 11/11 1600 11/11 0800 11/11 0000 11/10 1600 11/10 0800 11/10 0000 Intake Total 220 238 455 313 472 220 Output Total 1200 400 260 950 985 700 Balance -980 -162 195 -637 -513 -480 Intake, IV 100 238 255 213 472 220 Intake, Oral 120 0 200 100 Number 0 0 0 1 1 Bowel Movements Output, 0 10 15 Drainage Output, Urine 1200 400 250 950 970 700 Physical Exam: Stained cornea and looks worse today interms of area staining. Eye less red but opacity unchanged Assessment/Plan Assessment/Plan Pt with corneal uler not responding to antibiotics. Culture is negative. Could have fungal or herpetic viral infection. Do not have optimal floroquinalone here (Vigamox) to treat this if its bacterial and cannot peroperly examine at the bedside. Advised attending on case Elisa that he should be transfered to [place] where in addition to his other issues his eye can be followed more closely by the eye service there and he can be evaluated for other causes of this iinfection and treted more effectively. She agreees and will arrange for a transfer
--- NOTE | 2017-11-11 18:30 | Patient Discharge Instructions ---
Discharge Instructions General Discharge Information You were seen/treated for: Osteomyelitis corneal ulcer Special Instructions: You will be transferred to another facility for further care of your corneal ulcer Please continue with ampicillin and ciprofloxacin until December 05, You will need to check weekly ESR please follow up with your PCP upon discharge Diet Recommended Diet: Heart Healthy Acute Coronary Syndrome Inclusion Criteria At DC or during hospital stay patient has or had the following: ACS DIAGNOSIS No Discharge Core Measures Meds if any: Prescribed or Continued at Discharge Meds if any: NOT Prescribed or Continued at Discharge Congestive Heart Failure Inclusion Criteria At DC or during hospital stay patient has or had the following: CHF DIAGNOSIS No Discharge Core Measures Meds if any: Prescribed or Continued at Discharge Meds if any: NOT Prescribed or Continued at Discharge Cerebrovascular accident Inclusion Criteria At DC or during hospital stay patient has or had the following: CVA/TIA Diagnosis No Discharge Core Measures Meds if any: Prescribed or Continued at Discharge Meds if any: NOT Prescribed or Continued at Discharge Venous thromboembolism Inclusion Criteria VTE Diagnosis Yes VTE Type Deep Venous Thrombosis VTE Confirmed by (Test) DUPLEX VENOUS EXTREM UNI Discharge Core Measures - Per Current guidelines, there needs to be overlap - treatment for the first 5 days of Warfarin therapy. - If discharged on Warfarin prior to 5 days of - overlap therapy, the patient will need to be - assessed for post discharge needs including - *Post discharge parental anticoagulation - *Warfarin and/or parental anticoagulation education - *Follow up date to check INR post discharge At least 5 days overlap therapy as Inpatient No Meds if any: Prescribed or Continued at Discharge Note: Overlap Therapy is Warfarin and Anticoagulant Meds if any: NOT Prescribed or Continued at Discharge No Warfarin d/t Prescribed other Anticoag
--- NOTE | 2017-11-11 18:30 | Discharge Summary ---
Visit Information Visit Dates Admission Date: 10/26/17 Discharge Date: 11/12/17 Hospital Course Course Attending Physician: Dank Pérez MD Primary Care Physician: Zbigniew Cheng APRN Hospital Course: 62-year-old gentleman with PMH of alcohol abuse, asthma, recurrent DVT on Eliquis, history of upper GI bleed, GERD, neuropathy, NSTEMI, severe PVD s/p left popliteal and SFA thrombectomy as well as a compartment fasciotomy, with eventual recovery and discharge, but with recurrent ischemia to the left leg requiring a left AKA on 05/28/2017. He had left AKA stump infection in 06/2017 s/p I&D, debridement and washout x [address] Crystal. He was initially admitted to [facility] 10/26/17 for cellulitis at the left stump site and empirically started on Unasyn. He was also started on Heparin for AC and scheduled to be taken to the OR on Wednesday10/29/17, however, a day prior to surgery (10/28/17), his hospital course was complicated by acute hypoxic respiratory failure attributed to CHF requiring intubation for airway protection on 10/29/17. His CXR was cw PNA and underlying pulmonary venous congestion. An echo was done which showed impaired LV relaxation with an EF of 60%. ACS was ruled out. On his 7th post admission day, patient had a drop in his H&H 8.1-->7.4. A CT of abdomen/ pelvis was done and ruled out retroperitoneal bleed, and patient was trasnfused with a unit of PRBC given he was on AC and had to be taken to the OR later during the week for revisional surgery. Patient was stable to be taken to the OR a week later on 11/05/17 for revision of his left AKA stump, and wound vac placement. Postoperatively, pateint's blood pressure dropped possibly from sepsis 2/2 ostemyelitis as OR cultures show growth of gram positive cocci, and GNR. He was started on Levophed to maintain a MAP of 65mHg. He also had a drop in his H&H from 9-->8.2-->7.6, amd was transfused with another unit of PRBC. At baseline he is confused and not oriented. All consents for procedures and transfer was obtained from his sister Mily Flores [phone]. Left corneal ulcer was noted and Opthomology was consulted, He was monitored closely, for resolution since there was a possibility of uveitis and risk of opthalmitis Following issues were addressed: Acute hypoxic respiratory failure Required intubation 10/29/17 and was extubated on 11/09/17. After extubated he remained stable and was eventually weaned off oxygen. Sepsis secondary to osteomyelitis Polymicrobial osteomyelitis. OR cultures showed growth of multiple organisms including proteus, enterococcus, Pseudomonas and Enterobacter which are damon senstive. ID recomended Ampicillin 2 g IV every 6 hours and Ciprofloxacin 750 mg po every 12 hours for four weeks (until December 05, 2017). Midline was placed on 11/11/17. He will need weekly ESR. Left corneal ulcer Per opthomologist, Dr. Putnam his corneal uler was not responding to antibiotics and was worsening Advised transfer for further management. DVT History of DVT in the past on the left lower extremity x2, and right fem-pop bypass. His Eliquis was switched to lovenox on this admission. Decubitus ulcers on buttocks Stage three pressure ulcers on buttocks bilaterally. Diet Was on tube feeds which were discontinued s/p extubation. Swallow eval was done and he was cleared for Pureed diet and nectar thick liquids. DVT Lovenox 100mg daily. Code status: full code. Complications: please see above Allergies: Coded Allergies: codeine (Mild, SHAKES 07/09/17) Significant Procedures: SERVICE DATE: 10/28/17- EXAM TYPE: CARD - ECHOCARDIOGRAM FINDINGS Left Ventricle Normal left ventricular size, wall thickness and systolic function with no obvious regional wall motion abnormalities. Diastolic filling pattern is consistent with impaired LV relaxation. The ejection fraction is visually estimated at 60%. Right Ventricle The right ventricle is normal in size and function. Right Atrium The right atrium is normal in size. Left Atrium The left atrium is normal in size. The interatrial septum is intact. Mitral Valve The mitral valve is normal in structure and function. There is mild mitral regurgitation. Aortic Valve Structurally normal aortic valve without significant sclerosis or stenosis. There is no aortic regurgitation. Tricuspid Valve The tricuspid valve is normal in structure and function. There is no tricuspid regurgitation. Pulmonary artery systolic pressure is normal. Pulmonic Valve Structurally normal pulmonic valve. There is no pulmonic regurgitation. Pericardium Normal pericardium without effusion. No pleural effusion. Great Vessels Normal aortic root dimension. The aortic arch and great vessels are well seen and are normal. CONCLUSIONS 1. Normal EF of 60% with impaired LV relaxation. 2. Mild mitral regurgitation. Sergio Partida M.D. SERVICE DATE: 10/28/17-1432 EXAM TYPE: CAT - CTA CHEST-PULMONARY EMBOLISM FINDINGS: QUALITY OF STUDY/CONTRAST BOLUS: Suboptimal PULMONARY ARTERIES: The contrast density in the pulmonary arteries is suboptimal despite repeating the study. The aorta and left-sided circulation is higher in density than the pulmonary arterial system, consistent with late scan relative to the bolus. No central pulmonary embolus seen. Evaluation for lobar, segmental, or subsegmental pulmonary emboli is very limited. THORACIC AORTA: No aneurysm or dissection. LUNG: As noted on the chest x-ray earlier the same day, there are extensive acute abnormalities within the lungs new since 09/17/2017. There is extensive interlobular septal thickening and areas of groundglass opacity involving the lungs bilaterally. There was a similar appearance of subtle involvement within the anterior aspect of the left upper lobe previously but the vast majority of the findings are new. PLEURA: There are new bilateral pleural effusions with fluid extending into the right major fissure. MEDIASTINUM: Normal heart size. No pericardial effusion. No hilar or mediastinal lymphadenopathy. No evidence of septal bowing or right heart strain. CHEST WALL/AXILLA: No axillary or internal mammary lymphadenopathy. OSSEOUS STRUCTURES: Multiple healed rib fractures. No definite acute osseous abnormality. UPPER ABDOMEN: The liver has a lobular contour suggesting cirrhosis. There is a small amount of perihepatic ascites. No adrenal mass. No reflux of contrast into the hepatic veins to suggest elevated right heart pressures. IMPRESSION: The study is suboptimal for evaluation of pulmonary emboli despite repeating the bolus twice. No large central pulmonary embolus seen. There are extensive bilateral pulmonary abnormalities new since the prior chest CT 09/17/2017 with extensive interlobular septal thickening and areas of patchy groundglass opacity in the lungs bilaterally with a fairly geographic distribution. The greatest areas of involvement are in the bilateral upper lobes. Small bilateral pleural effusions are present as well. The appearance is nonspecific. Acute pulmonary edema is a leading consideration although infection or inflammation, for example a drug reaction, could be considered in the appropriate clinical setting. SERVICE DATE: 11/01/17- EXAM TYPE: CAT - CT ABD & PELVIS W/O IV CONTRAS EXAMINATION: CT ABDOMEN AND PELVIS WITHOUT CONTRAST FINDINGS: There is motion. LUNG BASES: Small bilateral pleural effusions. Volume larger on the left than right. Interstitial edema present. Nasogastric tube tip is at the level of the gastroesophageal junction. LIVER, GALLBLADDER, AND BILIARY TREE: The liver is normal in size, shape, and attenuation. No focal hepatic lesion or biliary ductal dilatation is present. The gallbladder is unremarkable with no evidence of radiopaque gallstones, gallbladder wall thickening, or obvious pericholecystic inflammatory changes. PANCREAS: Unremarkable. SPLEEN: Unremarkable. ADRENAL GLANDS: Unremarkable. KIDNEYS AND URETERS: The kidneys are normal in size, shape, and attenuation. No hydronephrosis, hydroureter, or calculi seen. No perinephric stranding. BLADDER: Unremarkable. GASTROINTESTINAL TRACT: Meyer catheter within the bladder. MESENTERY: Small to moderate volume of abdominal ascites. The abdominal ascites is new since CAT scan September 17, 2017. There is no retroperitoneal bleed. ABDOMINAL WALL: No significant hernia is appreciated. LYMPH NODES: Normal. VASCULAR: Atherosclerotic vascular wall calcifications of the abdomen and pelvis. No aneurysm of the aorta. PELVIC VISCERA: Unremarkable. OSSEOUS STRUCTURES: Degenerative spondylosis of spine with endplate spurring of vertebrae. Slight anterior wedge compression deformity T11 vertebrae. This is unchanged since prior CAT scan September 17, 2017 IMPRESSION: 1. No retroperitoneal bleed. 2. Small moderate volume of abdominal ascites. This is new since the prior CAT scan September 17, 2017. 3. Small bilateral pleural effusions left larger in volume than right. Interstitial edema at lung bases. 4. Nasogastric tube tip at the GE junction. This can be advanced down into the stomach. SERVICE DATE: 11/08/17- EXAM TYPE: US - US-EXT BILAT VENOUS DOPPLER FINDINGS: Right lower extremity: No evidence of deep vein thrombosis from the groin through the calf. Normal compressibility and normal vascular flow seen on Doppler exam. Left lower extremity: Patient has a [id number] amputation. Patient has history of popliteal DVT the left lower extremity. There is deep vein thrombosis in the left proximal femoral vein in the upper thigh. This is partially occlusive. Normal vascular flow is seen in the common femoral vein and greater saphenous vein. There is no right-sided Carrasquillo's cyst. IMPRESSION: 1. Right lower extremity: No evidence of deep vein thrombosis. 2. Left lower extremity: Occlusive deep vein thrombosis in the proximal left femoral vein. SERVICE DATE: 11/10/17- EXAM TYPE: RAD - XRY-HIP 2-3 VIEWS, LEFT EXAMINATION: XR HIP, LEFT CLINICAL INFORMATION: Status post left AKA. Baseline postop COMPARISON: Left femur 10/26/2017 TECHNIQUE: Two views of the left hip. FINDINGS: Patient has had an [id number] amputation. No bone destruction. Surgical drain in the soft tissues at the end of the stump with surgical clips. There are vascular clips in the soft tissues as well. Mild joint narrowing of the hip joint. IMPRESSION: Status post [id number] amputation. Disposition Summary Disposition Principal Diagnosis: Sepsis Additional Diagnosis: acute respiratory failure polymicrobial osteomyelitis PVD DVT pressure ulcers corneal ulcer Discharge Disposition: other general hospital Discharge Instructions General Discharge Information Code Status: Full Code Patient's Diet: Pureed diet and nectar thick liquids. Patient's Activity: as tolerated Follow-Up Instructions/Appts: continue with ampicillin and ciprofloxacin until December 05, You will need to check weekly ESR follow up with your PCP upon discharge Medications at Discharge Discharge Medications: Stop taking the following medications: Apixaban (Eliquis) 5 MG TABLET ORAL TWICE DAILY Days = 30 Continue taking these medications: Gabapentin (Neurontin) 300 MG CAPSULE 1 Capsule ORAL THREE TIMES DAILY Comments: Last Taken: 07/14/17 Time: 4:36AM Albuterol Sulfate (Ventolin Hfa) 90 MCG HFA.AER.AD 2 Puff Inhale through mouth EVERY 4-6 HOURS NEEDED as needed for SHORTNESS OF BREATH Qty = 1 Comments: NOT GIVEN IN HOSPITAL Mometasone/Formoterol (Dulera 200 Mcg/5 Mcg Inhaler) 200 MCG-5 MCG/ACTUATION HFA.AER.AD 2 Puff Inhale through mouth TWICE DAILY Comments: NOT GIVEN IN HOSPITAL Ranitidine HCl (Ranitidine HCl) 300 MG TABLET 1 Tablet ORAL Every night Qty = 30 Comments: NOT GIVEN IN HOSPITAL Aspirin (Aspirin*) 81 MG TAB.CHEW 81 Milligram ORAL DAILY Days = 30 Comments: NOT GIVEN IN HOSPITAL Omeprazole (Omeprazole) 20 MG CAPSULE.DR 40 Milligram ORAL DAILY BEFORE BREAKFAST Days = 60 Comments: Last Taken: 07/14/17 Time: 4:36 AM Multiple Vitamin (Multivitamins) 1 EACH TABLET 1 Tablet ORAL DAILY Pravastatin Sodium (Pravastatin Sodium) 20 MG TABLET 1 Tablet ORAL DAILY Qty = 30 Start taking the following new medications: Ciprofloxacin HCl (Ciprofloxacin HCl) 250 MG TABLET 750 Milligram ORAL EVERY 12 HOURS Days = 23 No Refills Instructions: UNTIL DECEMBER 05, 2017 Enoxaparin Sodium (Lovenox) 100 MG/ML SYRINGE 100 Milligram Inject into fatty tissue DAILY Days = 30 No Refills Ampicillin Sodium (Ampicillin Sodium) 2 GRAM VIAL 2 G INTRAVEN DAILY Days = 23 No Refills Instructions: UNTIL November Copies To: Zbigniew Cheng APRN Attending MD Review Statement Documenting Attending: Dank Pérez MD
[2017-11-11] MEDS ORDERED: AMPICILLIN SODIU2 G2 IV (18:40)
[2017-11-11] MEDS ORDERED: LOVENOX100 MG/1 M SC (18:43)
[2017-11-11] MEDS ORDERED: CIPROFLOXACIN250 M1 PO (18:43)
[2017-11-12] VITALS: BP 90/60
[2017-11-12 08:00] VITALS: BP 102/74
--- NOTE | 2017-11-12 08:04 | PN- Resident CRCU ---
Jorge Daniel 11/12/17 0804: Subjective HPI/CRCU Issues: Seen and examined patient. offers no complaints. continues to be confused 24 Hour Events: afebrile overnight BP systolic 90-104/60-70 no overnight events reported Objective Vital Signs & I&O Last 8 Hrs of Vitals and I&O: Intake & Output 11/12 1600 11/12 0800 11/12 0000 Intake Total 276 220 Output Total Balance 276 220 Intake, IV 226 100 Intake, Oral 50 120 Number 0 1 Bowel Movements Exam General Appearance: awake, anxious Respiratory: quiet respiration Cardiovascular: regular rate/rhythm Gastrointestinal: normal bowel sounds, soft, non-tender Extremities: l AKA Weaning Parameters NIF: 16 Minute Volume: 8.52 Resp rate: 14 Vt: 705 Heart Rate: 85 Weaning Schedule Start Time: 0915 Minute Volume: 7.61 Resp Rate: 12 Vt: 450 Heart Rate: 82 End Time: 1130 Minute Volume: 13.2 Resp Rate: 26 Vt: 650 Heart Rate: 90 Current Medications: Current Medications Sig/Lillie Start time Last Medication Dose Route Stop Time Status Admin Acetaminophen 650 MG .STK-MED ONE 11/11 223 DC PO 11/11 2232 Acetaminophen 650 MG Q8P PRN 10/26 2115 AC 11/11 PO 2231 Albuterol Sulfate 3 ML BID 11/06 2200 AC 11/11 INH 2039 Albuterol Sulfate 3 ML Q4P PRN 10/28 1430 AC 10/31 INH 2131 Ampicillin 2,000 MG Q6 11/10 1800 AC 11/12 Sodium Chloride 100 ML IV 0613 Bisacodyl 10 MG Q12P PRN 11/02 0845 AC 11/07 NJ 1040 Ciprofloxacin 2 GTT Q2 11/11 1630 AC 11/12 OPH 1001 Ciprofloxacin 750 MG Q12 11/10 2200 AC 11/12 PO 11/14 2159 0827 Ciprofloxacin 2 GTT Q4 11/10 2000 DC 11/11 OPH 1400 Enoxaparin Sodium 100 MG DAILY 11/09 1000 AC 11/12 SC 0826 Fluorescein Sodium 1 MG ONCE ONE 11/11 1445 DC 11/11 OPH 11/11 1446 1530 Folic Acid 1 MG DAILY 10/27 1000 AC 11/12 PO 0827 Furosemide 20 MG Q12 11/10 2200 AC 11/12 IV 0827 Gabapentin 300 MG TID 10/26 2200 AC 11/12 PO 0826 Hydromorphone HCl 0.4 MG Q6P PRN 10/27 0415 AC 11/11 IV 1042 Lorazepam 1 MG Q1 NEEDED PRN 10/29 0830 AC 11/11 IV 1041 Multivitamins 15 ML DAILY 10/29 1000 AC 11/12 PO 0826 Norepinephrine 4 MG Q10H 11/07 1300 DC 11/10 Sodium Chloride 250 ML IV 2114 Pantoprazole Sodium 40 MG DAILY 10/29 1000 AC 11/12 IV 0826 Phosphate 250 MG PC AND AT BEDTIME 11/06 0900 AC 11/12 PO 0827 Polyethylene Glycol 17 GM DAILY 11/02 1000 AC 11/12 PO 0825 Polymyxin/ 2 GTT Q2 11/11 1700 AC 11/12 Trimethoprim Sulfate OPH 1000 Polymyxin/ 2 GTT Q4 11/10 2100 DC 11/11 Trimethoprim Sulfate OPH 1400 Pravastatin Sodium 20 MG 1700 10/27 1700 AC 11/11 PO 1818 Scopolamine HBr 1 PAT Q72H 11/06 1400 AC 11/09 TOP 1400 Senna 187 MG AT BEDTIME 11/02 2200 AC 11/08 PO 2222 Thiamine HCl 100 MG DAILY 10/27 1000 AC 11/12 PO 0826 Impression/Plan Impression/Problem List Impression: 62-year-old gentleman with PMHx of alcohol abuse, asthma and recurrent DVT on Eliquis, h/o UGI bleed, GERD, neuropathy, NSTEMI, left lower extremity ischemia , requiring a left popliteal and SFA thrombectomy as well as a compartment fasciotomy, with eventual recovery and discharge, but with recurrent ischemia to the left leg requiring a left AKA on 05/28/2017. Left AKA stump infection in 06/2017 s/p I&D, debridement and washout x [address] Crystal who presented to the ED on 10/26/17 with c/o loss of sensation in his left stump where he saw bone coming out of the wound. He was scheduled to be taken to the OR on Wednesday10/29/17, however, his hospital course was complicated by acute hypoxic respiratory failure thought to be multifactorial 2/2 requiring intubation for airway protection. After he was aggressively diuresed, and stabilized, he was taken to the OR on 11/05/17 and underwent the revision of left AKA stump and placement of negative pressure dressing by Dr. Crystal. Extubated 11/10/17. Assessment/Plan: Respiratory: Acute hypoxic respiratory failure resolved, was likely 2/2 fluid overload, and or pneumonia. Tx'ed w/ Unasyn, with adequate clinial improvement. Continues to have fluid overload, and would need diuresis prn Lower respiratory culture showing mixed francisco moderate growth of pseudomonas and light growth of Proteus mirabilis Infectious: Polymicrobial osteomyelitis: Normal white count. OR cultures showed growth of multiple organisms including proteus, enterococcus, Pseudomonas and Enterobacter which are damon senstive. ID on board on Ampicillin 2 g IV every 6 hours,Ciprofloxacin 750 mg po every 12 hours till December 05, 2017 and postop baseline ESR = 116 Circulatory: off pressors Echo shows normal EF of 60% with impaired LV relaxation. Mild mitral regurgitation. Trop and ECG - no evidence of ischemic changes. Cardiology on board. Hematology- Low H&H, which is stable for now. Hb 8.4. History of DVT in the past on the left LE x2, and right fem-pop bypass. currently on lovenox. Repeat US LLE shows DVT, and unsure, if this is new vs old, regardless this needs to be tx'ed. TSH, FT4 WNL folate and Vitamin B12, WNL. Iron studies c/w anemia of chronic disease. Metabolic- Stage 3 decubitus ulcers present on buttocks bilaterally. Neurology- Eye exam has findings s/o left corneal ulcer. Per Dr. Putnam corneal uler not responding to antibiotics. Will be transfer to another facility today. DVT PPx- lovenox GI Ppx- Protonix FC Problem List: 1. ETOH ABUSE 2. Anemia 3. Corneal ulcer 4. Osteomyelitis Pain Ratin Tomorrow's Labs & Rationales: none required Plan DVT/Prophylaxis: pharmacological Code Status: Full Code Elisa IBRAHIMDank Aarona 11/12/17 1432: Attending MD Review Statement Attending Sign Off Attending Cosign Statement: I have: examined this patient, reviewed [facility] EMR data, personally reviewd images, discussd w/resident/PA/MYCOLOGIST, discussed mgmt plan w/laci, discussed mgmt plan w/CM, discussed mgmt plan w/pt, agreed w/resident/PA/MYCOLOGIST. Other Findings: Discussed patient's case with [facility]. Will transfer patient for ongoining optho evaluation.
[2017-11-12 08:56] VITALS: BP 90/60
--- NOTE | 2017-11-12 11:30 | PN- Infect Dx ---
Subjective Subjective: Afebrile without complaints Objective Last 24 Hrs of Vital Signs/I&O Vital Signs Date Time Temp Pulse Resp B/P B/P Pulse O2 O2 Flow FiO2 Mean Ox Delivery Rate 11/12 1116 96 Room Air Room Air 11/12 0856 97.6 77 16 90/60 11/12 0800 98.2 72 20 102/74 98 Room Air 11/12 0000 97.6 77 16 90/60 98 Room Air 11/12 0000 98 Room Air 11/11 2046 95 Room Air Room Air 11/11 1220 94 Room Air Room Air 11/11 1200 95 Intake & Output 11/12 1600 11/12 0800 11/12 0000 Intake Total 276 220 Output Total Balance 276 220 Intake, IV 226 100 Intake, Oral 50 120 Number 0 1 Bowel Movements Physical Exam Other Physical Findings: He is confused but awake and alert in no acute distress HEENT left conjunctival injection with corneal opacity Lungs scattered rhonchi bilaterally Heart regular rhythm with no murmur Abdomen is soft, nontender with positive bowel sounds Extremities left AKA incision clean, with no erythema; wound VAC in place; PICC in place in the right upper extremity Results Last 24 Hours of Lab Results: No labs from today Last 24 Hours of Rahat Results: No new cultures Assessment/Plan ID Impression: Stable, with temperatures and white blood cell count remaining normal now on Ampicillin and Ciprofloxacin, Day 5 of treatment for a polymicrobial osteomyelitis of the left femur, now 1 week status post left AKA stump revision, and possible pneumonia, with sputum culture positive for Pseudomonas and Proteus. He is apparently to be transferred to [place] for further management of his left corneal ulcer. Suggestion: 1. Await transfer to [place] 2. Continue Ampicillin and Ciprofloxacin to complete a 4 week course (until December 05) 3. Will need a weekly ESR while on antibiotics
== END 2017-11-12 15:18 | disposition short-term general hospital (02) | DRG 981 ==
LOC: ERH 14:45 → 2NA 20:13 → ERHI 20:13 → CRI 20:13 → ENRESERV 21:53 → ENTRNSPT 22:32 → EDTRNSPT 22:34 → EDTRNSPTSTS 22:34 → 2NA 22:43 → CMPTRNSPT 22:48 → 2NA 10-27 08:51 → CRI 10-28 22:35
PROVIDERS: Emergency Medicine; Internal Medicine; Internal Medicine Adolescent Medicine; Internal Medicine Critical Care Medicine; Internal Medicine Endocrinology, Diabetes & Metabolism; Internal Medicine Infectious Disease; Internal Medicine Pulmonary Disease; Student in an Organized Health Care Education/Training Program; Surgery
PROC: 0BH17EZ Insertion of Endotracheal Airway into Trachea, Via Natural or Artificial Opening (ICD-10-PCS; 2017-10-29)
PROC: 5A1955Z Respiratory Ventilation, Greater than 96 Consecutive Hours (ICD-10-PCS; 2017-10-29)
PROC: 0Y6D0Z1 Detachment at Left Upper Leg, High, Open Approach (ICD-10-PCS; principal; 2017-11-05)
DX: J96.01 Acute respiratory failure with hypoxia (principal); J69.0 Pneumonitis due to inhalation of food and vomit; I50.33 Acute on chronic diastolic (congestive) heart failure; N17.9 Acute kidney failure, unspecified; N18.3 Chronic kidney disease, stage 3 (moderate); I13.0 Hypertensive heart and chronic kidney disease with heart failure and stage 1 through stage 4 chronic kidney disease, or unspecified chronic kidney disease; E87.0 Hyperosmolality and hypernatremia; J96.02 Acute respiratory failure with hypercapnia; F03.90 Unspecified dementia, unspecified severity, without behavioral disturbance, psychotic disturbance, mood disturbance, and anxiety; H91.90 Unspecified hearing loss, unspecified ear; J44.9 Chronic obstructive pulmonary disease, unspecified; I48.0 Paroxysmal atrial fibrillation; G89.29 Other chronic pain; M54.9 Dorsalgia, unspecified; D64.9 Anemia, unspecified; M10.9 Gout, unspecified; F41.9 Anxiety disorder, unspecified; F32.9 Major depressive disorder, single episode, unspecified; E66.01 Morbid (severe) obesity due to excess calories; Z91.19 Patient's noncompliance with other medical treatment and regimen; N40.0 Benign prostatic hyperplasia without lower urinary tract symptoms; Z74.01 Bed confinement status; I25.2 Old myocardial infarction; K21.9 Gastro-esophageal reflux disease without esophagitis; Z66 Do not resuscitate; Z99.81 Dependence on supplemental oxygen; T87.81 Dehiscence of amputation stump
CPT/HCPCS: 2NASP; 87070; 87075; CCU; 36415; 71045; 73502-LT; 73552; 74176; 80307; 82436; 86920; 87040; 87071; 87086; 87147; 87449; 87450; 87804; 87804-59; 93005; 93010; 93306; 93970; 94799; 96361; 96365; C1769; G0480; J0131; J0290; J0690; J0713; J0834; J1170; J1644; J1650; J1940; J2310; J2543; J3370; J3490; J7040; J7042; J7060; P9016

== ENCOUNTER 2018-01-24 19:55 | Emergency (ER) | payer OTHER ==
[~2018-01-24] VITALS: Ht 177.8 cm; Wt 63.5 kg
[~2018-01-24 19:55] MED LIST changes: +AMPICILLIN SODIU2 G2 IV; +CIPROFLOXACIN250 M1 PO; +GABAPENTIN300 M2 PO; +LOVENOX100 MG/1 M SC; +PRAVASTATIN SOD20 M2 PO
--- NOTE | 2018-01-24 21:40 | RADIOLOGY REPORT ---
EXAMINATION: XR HAND, RIGHT XR SHOULDER, LEFT XR, LEG, RIGHT CLINICAL INFORMATION: Rule out fracture. Pain after fall. COMPARISON: None TECHNIQUE: PA, lateral, and oblique views of the right hand. 3 views of the left shoulder and 3 views of the right leg. FINDINGS: Right hand: There is periarticular bony demineralization. No acute fracture or dislocation is seen. Carpal bones are in normal anatomic alignment and the carpal rows are maintained. The distal forearm bones appear normal. No discrete soft tissue abnormality is seen. There is no abnormal displacement of the pronator fat pad on the lateral projection. Scattered vascular calcifications are present in the forearm. Left shoulder: There is ossific spurring along the undersurface of the distal clavicle at what is suspected to represent a chronic fracture deformity with callus formation. The acromioclavicular joint and glenohumeral articulation are maintained. There is mild angulation of the lower scapula on the axillary Y view which may reflect a chronic injury. No acute fracture or dislocation is otherwise visible. The soft tissues are unremarkable. No displaced sided upper rib fracture is definitively seen. The imaged portions of the left lung are clear. Right leg: Surgical clips are present in the soft tissues medial to the tibia. No fracture or dislocation is seen. The knee joint space appears normal. There is no joint effusion. Scattered soft tissue vascular calcifications are present. There is questionable ventrolateral ankle soft tissue swelling, incompletely assessed. IMPRESSION: No acute fracture or dislocation right hand. No osseous traumatic findings. Questionable chronic fracture deformity with bony callus formation along the distal clavicle. Additional mild angulation along the lower scapula on the oblique view with potential bony callus formation, suggesting a chronic injury. Otherwise, no acute fracture or dislocation. Surgical clips in the medial right leg and along the medial aspect of the knee. No acute osseous abnormality. Questionable partially visualized ventrolateral ankle soft tissue swelling.
--- NOTE | 2018-01-24 21:46 | ED MVC/FALL/TRAUMA COMPLAINT ---
History of Present Illness General Chief Complaint: Fall Stated Complaint: BIBA, FALL Source: patient Exam Limitations: no limitations Vital Signs & Intake/Output Vital Signs & Intake/Output Vital Signs Date Time Temp Pulse Resp B/P B/P Pulse O2 O2 Flow FiO2 Mean Ox Delivery Rate 01/24 2306 97.8 82 18 121/59 96 Room Air 01/24 2001 97.7 75 18 116/65 96 Room Air ED Intake and Output 01/25 0000 01/24 1200 Intake Total 0 Output Total Balance 0 Intake, Oral 0 Patient 140 lb Weight Weight Reported by Patient Measurement Method Allergies Coded Allergies: codeine (Mild, SHAKES 07/09/17) Reconcile Medications Albuterol Sulfate (Ventolin Hfa) 90 MCG HFA.AER.AD 2 PUF INH Q4-6 PRN PRN SHORTNESS OF BREATH Ampicillin Sodium 2 GRAM VIAL 2 G IV DAILY OSTEOMYLELITIS UNTIL November Aspirin (Aspirin*) 81 MG TAB.CHEW 81 MG PO DAILY heart health Ciprofloxacin HCl 250 MG TABLET 750 MG PO Q12 OSTEOMYELITIS UNTIL DECEMBER 05, 2017 Enoxaparin Sodium (Lovenox) 100 MG/ML SYRINGE 100 MG SC DAILY dvt Gabapentin (Neurontin) 300 MG CAPSULE 1 CAP PO TID NERVE PAIN (Reported) Mometasone/Formoterol (Dulera 200 Mcg/5 Mcg Inhaler) 200 MCG-5 MCG/ACTUATION HFA.AER.AD 2 PUF INH BID ASTHMA (Reported) Multiple Vitamin (Multivitamins) 1 EACH TABLET 1 TAB PO DAILY SUPPLEMENT ( Reported) Omeprazole 20 MG CAPSULE.DR 40 MG PO DAILY AC GI BLEED Oxycodone HCl/Acetaminophen (Percocet 5-325 MG Tablet) 5 MG-325 MG TABLET 1 TAB PO 4 TIMES/DAY PRN PAIN Pravastatin Sodium 20 MG TABLET 1 TAB PO DAILY HLD (Reported) Ranitidine HCl 300 MG TABLET 1 TAB PO QPM GI (Reported) Triage Note: PT BIBA FROM HOME S/P FALL TRANSFERRING FROM TO BED. PT HAD DRANK 3 BEERS PRIOR TO TRANSFER. HIT HEAD, -LOC. LAC TO RLE, RIGHT FOREHEAD AND SKIN TEARS TO LEFT SHOULDER. Triage Nurses Notes Reviewed? yes Onset: Abrupt Duration: hour(s): (1), constant, continues in ED Timing: single episode today Severity: mild, moderate Severity Numbers: 7 Injuries/Fall Location: head, upper extremity, lower extremity Method of Injury: fall Loss of Consciousness: no loss of consciousness No Modifying Factors: none HPI: 62-year-old male past medical history of alcohol dependence, DVT on Eliquis, below the knee amputation left side present for evaluation after a fall. Patient was transferring from his wheelchair into his bed when he slipped falling to the ground. He did hit his head and his left shoulder and his right leg on the ground. His right leg scraped against the wheelchair causing a laceration. He denies any loss of consciousness. He does take Eliquis. No changes in vision or vomiting. Patient does not ambulate at baseline but is usually able to self transfer. No numbness or tingling no abdominal pain chest pain. He reports a mild headache no back pain mild neck pain. Patient reports up-to-date on tetanus. (Darrin Calhoun) Past History Travel History Traveled to [place] past 21 day No Medical History Any Pertinent Medical History? see below for history Neurological: peripheral neuropathy EENT: NONE Cardiovascular: hyperlipidemia, myocardial infarction, PVD Respiratory: asthma Gastrointestinal: lower GI bleed Hepatic: NONE Renal: NONE Musculoskeletal: NONE Psychiatric: alcohol dependence Endocrine: NONE Blood Disorders: DVT Cancer(s): NONE SHIRT TRIMMER/Reproductive: NONE History of MRSA: No History of VRE: No History of CDIFF: No Tetanus Vaccine: 09/17/17 Surgical History Surgical History: fasciotomy, thrombectomy left above the knee amputation (06/13) Psychosocial History Who do you live with Patient/Self Services at Home Nursing What is your primary language Jamaican Tobacco Use: Current Daily Use Daily Tobacco Use Amount/Type: => 5 Cigarettes daily ETOH Use: occasional use Family History Family History, If Any: MOTHER (HEART CONDITION). , Age 62. FATHER (HEART CONDITION). , Age 60+. Hx Contributory? No (Darrin Calhoun) Review of Systems Review of Systems Constitutional: Reports: no symptoms. Eyes: Reports: no symptoms. Ears, Nose, Throat, Mouth: Reports: no symptoms. Respiratory: Reports: no symptoms. Cardiovascular: Reports: no symptoms. Gastrointestinal/Abdominal: Reports: no symptoms. Genitourinary: Reports: no symptoms. Musculoskeletal: Reports: see HPI, joint pain, muscle pain, muscle stiffness, neck pain. Skin: Reports: see HPI (laceration). Neurological/Psychological: Reports: no symptoms. All Other Systems: Reviewed and Negative (Darrin Calhoun) Physical Exam Physical Exam General Appearance: well developed/nourished, no apparent distress, alert, awake Head: there is a 1.5 cm superficial linear vertical laceration located on the right forehead. No active bleeding no subcutaneous tissue. Small amount of surrounding soft tissue swelling no raccoon eyes or moses signs Eyes: Bilateral: normal appearance, PERRL, EOMI. Ears, Nose, Throat, Mouth: hearing grossly normal, moist mucous membrane Neck: normal inspection, supple, full range of motion, paraspinous muscle tender (bilaterally), no midline tenderness Respiratory: normal breath sounds, chest non-tender, no respiratory distress, lungs clear, no tenderness palpation of the bilateral ribs Cardiovascular: regular rate/rhythm, normal peripheral pulses Peripheral Pulses: 2+ radial (R), 2+ radial (L) Gastrointestinal: soft, non-tender Back: normal inspection, normal range of motion, no vertebral tenderness Extremities: full range of motion of the bilateral upper extremities. There is pain with range of motion of the left shoulder. Tenderness palpation of the anterior posterior left deltoid and acromioclavicular joint. No gross deformity. No tenderness of the clavicle. there are 2 skin tears located on the left lateral shoulder., there is a left lower extremity below the knee amputation. There is a V-shaped linear laceration approximately 7 cm long located on the lateral aspect of the right lower leg. Small amount of active bleeding and soft tissue swelling. Full range of motion of the right ankle and right knee without pain neurovascular supply intact to the right lower extremity , there is pain to palpation of the right fifth finger. No swelling for range of motion intact no erythema Neurologic/Psych: no motor/sensory deficits, awake, alert, oriented x 3 Skin: intact, normal color, warm/dry Core Measures ACS in differential dx? No CVA/TIA Diagnosis No Sepsis Present: No Sepsis Focused Exam Completed? No (Darrin Calhoun) Progress Differential Diagnosis: C/T/L spine injury, ext injury, ICH, pelvis injury, spinal cord injury, laceration, abrasion, contusion Plan of Care: Orders Procedure Date/time Status Durable Medical Equipment 01/24 7158 Active Patient seen and evaluated. He is here after a mechanical fall. He did have a head strike with a small laceration to the right forehead. He also has skin tears to the left lateral shoulder and a large laceration to the right lower leg. We'll check CT scans of the head and neck. X-rays of the left shoulder and right hand. Also check an x-ray of the right lower extremity. Patient medicated with Percocet. ct scans are negative for acute injury. X-rays of the right tib-fib and right hand are negative. There is a questionable chronic fracture of the left clavicle. Patient denies previous injury in this area. He is placed into a sling and given or throat follow-up rest ice elevation compression. The laceration on the right forehead was cleaned with Betadine and closed with Steri -Strips. The laceration to the right lower leg was cleaned with Betadine and sterile water 1% lidocaine used for local pain control. 9 4-0 nylon simple sutures used to approximate wound patient tolerated well. Discussed wound care procedures. Sterile dressing applied. Follow-up primary care doctor for wound check. Sutures to come out in 7-10 days. Discussed return precautions patient is up-to-date on tetanus patient agrees the plan. Diagnostic Imaging: Viewed by Me: Radiology Read, CT Scan. Discussed w/RAD: Radiology Read, CT Scan. Radiology Impression: PATIENT: MCKAY BECKMAN PRESENT AGE: 62 PATIENT ACCOUNT NO: [id number] : 57 LOCATION: [facility] ORDERING PHYSICIAN: Darrin AMADO SERVICE DATE: 01/24/18 EXAM TYPE: RAD - XRY-HAND, RIGHT; XRY-SHOULDER COMPLETE-LEFT; [id number], RIGHT EXAMINATION: XR HAND, RIGHT XR SHOULDER, LEFT XR, LEG, RIGHT CLINICAL INFORMATION: Rule out fracture. Pain after fall. COMPARISON: None TECHNIQUE: PA, lateral, and oblique views of the right hand. 3 views of the left shoulder and 3 views of the right leg. FINDINGS: Right hand: There is periarticular bony demineralization. No acute fracture or dislocation is seen. Carpal bones are in normal anatomic alignment and the carpal rows are maintained. The distal forearm bones appear normal. No discrete soft tissue abnormality is seen. There is no abnormal displacement of the pronator fat pad on the lateral projection. Scattered vascular calcifications are present in the forearm. Left shoulder: There is ossific spurring along the undersurface of the distal clavicle at what is suspected to represent a chronic fracture deformity with callus formation. The acromioclavicular joint and glenohumeral articulation are maintained. There is mild angulation of the lower scapula on the axillary Y view which may reflect a chronic injury. No acute fracture or dislocation is otherwise visible. The soft tissues are unremarkable. No displaced sided upper rib fracture is definitively seen. The imaged portions of the left lung are clear. Right leg: Surgical clips are present in the soft tissues medial to the tibia. No fracture or dislocation is seen. The knee joint space appears normal. There is no joint effusion. Scattered soft tissue vascular calcifications are present. There is questionable ventrolateral ankle soft tissue swelling, incompletely assessed. IMPRESSION: No acute fracture or dislocation right hand. No osseous traumatic findings. Questionable chronic fracture deformity with bony callus formation along the distal clavicle. Additional mild angulation along the lower scapula on the oblique view with potential bony callus formation, suggesting a chronic injury. Otherwise, no acute fracture or dislocation. Surgical clips in the medial right leg and along the medial aspect of the knee. No acute osseous abnormality. Questionable partially visualized ventrolateral ankle soft tissue swelling. DICTATED BY: Jesus Gandara MD DATE/TIME DICTATED:01/24/182128 TITLE INSURANCE SALES REPRESENTATIVE:BIJAN DATE/TIME TRANSCRIBED:01/24/182128 CONFIDENTIAL, DO NOT COPY WITHOUT APPROPRIATE AUTHORIZATION. <Electronically signed in Other Vendor System> SIGNED BY: Jesus Gandara MD 01/24/182139, PATIENT: MCKAY BECKMAN PRESENT AGE: 62 PATIENT ACCOUNT NO: [id number] : 57 LOCATION: [facility] ORDERING PHYSICIAN: Darrin AMADO SERVICE DATE: 01/24/18 EXAM TYPE: CAT - CT CERV SPINE WO IV CONTRAST; CT HEAD WO IV CONTRAST EXAMINATION: CT HEAD WITHOUT CONTRAST CT CERVICAL SPINE WITHOUT CONTRAST CLINICAL INFORMATION: Trauma. Fall. Head strike. COMPARISON: CT from 09/17/2017. TECHNIQUE: Contiguous axial imaging was performed from the skullbase to vertex without intravenous administration of contrast. Multidetector helical imaging was performed through the cervical spine. The study is somewhat limited due to patient motion artifacts. DLP: 927.3 mGy-cm. FINDINGS: HEAD: There is no evidence of acute intracranial hemorrhage or territorial infarction. No abnormal mass effect or midline shift is seen. Rivera to white matter differentiation is well preserved. No extra-axial fluid collections are identified. Generalized parenchymal volume loss noted. The ventricles are normal in size. Mild chronic white matter microangiopathy. The osseous structures and soft tissues are normal. The mastoid air cells and visualized portions of the paranasal sinuses are well aerated. CERVICAL SPINE: No acute fracture or dislocation is identified in the cervical spine. Moderate degenerative disc disease and endplate spurring noted at C5-C6. The atlantoaxial articulation is normally maintained. The paraspinal soft tissues are normal. Significant atherosclerotic calcifications present at the carotid bifurcations. Moderate emphysematous changes and reticular markings noted at the lung apices. IMPRESSION: 1. Somewhat limited study with motion artifacts. Otherwise, no acute intracranial pathology. 2. No evidence of acute cervical spine traumatic injury. Moderate spondylosis at C5-C6. DICTATED BY: Jesus Gandara MD DATE/TIME DICTATED:01/24/182150 TITLE INSURANCE SALES REPRESENTATIVE:BIJAN DATE/TIME TRANSCRIBED:01/24/182150 CONFIDENTIAL, DO NOT COPY WITHOUT APPROPRIATE AUTHORIZATION. (Darrin Calhoun) Departure Departure Disposition: HOME OR SELF CARE Condition: Stable Clinical Impression Primary Impression: Laceration of multiple sites Secondary Impressions: Left shoulder pain Qualifiers: Chronicity: acute Qualified Code: M25.512 - Pain in left shoulder Referrals: Zbigniew Cheng APRN (PCP/Family) Additional Instructions: Keep the affected areas clean and dry. Change dressing at least once a day. Badger for signs of infection like redness swelling discharge or pain. The Steri-Strips will come off on their own in 3 or 4 days. The sutures need to remove removed in 7-10 days. He should follow-up with her primary care doctor in 3 or 4 days for a wound check. Wear shoulder immobilizer. Tylenol for pain. Percocet for severe pain only this may cause drowsiness. Monitor symptoms return with any concerns. Departure Forms: Customer Survey General Discharge Information Prescriptions: Current Visit Scripts Oxycodone HCl/Acetaminophen (Percocet 5-325 MG Tablet) 1 TAB PO 4 TIMES/DAY PRN PAIN #10 TAB (Darrin Calhoun) PA/[employer] Co-Sign Statement Statement: ED Attending supervision documentation- [] I saw and evaluated the patient. I have also reviewed all the pertinent lab results and diagnostic results. I agree with the findings and the plan of care as documented in the PA's/[employer]'s documentation. [X] I have reviewed the ED Record and agree with the PA's/[employer]'s documentation. [] Additions or exceptions (if any) to the PAs/[employer]'s note and plan are summarized below: [] (Shanell IBRAHIM,Jesus Coleman) Procedures Laceration/Wound Repair Laceration/Wound Repair: Wound Location: lower extremity Wound's Depth, Shape: linear (v shaped), subcutaneous Wound Length (cm): 7 Wound Explored: clean, no foreign body removed, irrigated extensively Irrigated w/ Saline (ccs): 300 Betadine Prep? Yes Anesthesia: 1% lidocaine Volume Anesthetic (ccs): 10 Wound Debrided: minimal Wound Repaired With: sutures Suture Size/Type: 4:0, nylon Number of Sutures: 9 Layer Closure? No Tetanus Status: up to date (Darrin Calhoun)
--- NOTE | 2018-01-24 22:01 | CT SCAN REPORT ---
EXAMINATION: CT HEAD WITHOUT CONTRAST CT CERVICAL SPINE WITHOUT CONTRAST CLINICAL INFORMATION: Trauma. Fall. Head strike. COMPARISON: CT from 09/17/2017. TECHNIQUE: Contiguous axial imaging was performed from the skullbase to vertex without intravenous administration of contrast. Multidetector helical imaging was performed through the cervical spine. The study is somewhat limited due to patient motion artifacts. DLP: 927.3 mGy-cm. FINDINGS: HEAD: There is no evidence of acute intracranial hemorrhage or territorial infarction. No abnormal mass effect or midline shift is seen. Rivera to white matter differentiation is well preserved. No extra-axial fluid collections are identified. Generalized parenchymal volume loss noted. The ventricles are normal in size. Mild chronic white matter microangiopathy. The osseous structures and soft tissues are normal. The mastoid air cells and visualized portions of the paranasal sinuses are well aerated. CERVICAL SPINE: No acute fracture or dislocation is identified in the cervical spine. Moderate degenerative disc disease and endplate spurring noted at C5-C6. The atlantoaxial articulation is normally maintained. The paraspinal soft tissues are normal. Significant atherosclerotic calcifications present at the carotid bifurcations. Moderate emphysematous changes and reticular markings noted at the lung apices. IMPRESSION: 1. Somewhat limited study with motion artifacts. Otherwise, no acute intracranial pathology. 2. No evidence of acute cervical spine traumatic injury. Moderate spondylosis at C5-C6.
[2018-01-24] MEDS ORDERED: PERCOCET 5-3251 EACH PO (23:00)
[2018-01-24 23:06] VITALS: BP 121/59
[2018-04-04] MEDS ORDERED: NYSTATIN100000 UNI PO (11:51)
== END 2018-01-25 00:15 ==
LOC: ERH 19:55
DX: S81.811A Laceration without foreign body, right lower leg, initial encounter (principal); M25.512 Pain in left shoulder; W05.0XXA Fall from non-moving wheelchair, initial encounter; Y92.9 Unspecified place or not applicable; Y93.9 Activity, unspecified
CPT/HCPCS: 73030-LT; 73130-RT; 73590-RT; J2001

== ENCOUNTER 2018-02-08 14:00 | Emergency (ER) | payer OTHER, MEDICARE ==
[~2018-02-08 14:00] MED LIST changes: +PERCOCET 5-3251 EACH PO
[2018-02-08 14:05] VITALS: BP 124/72
--- NOTE | 2018-02-08 14:12 | ED ANIMAL BITE/WOUND CHECK ---
History of Present Illness General Chief Complaint: Suture Removal/Wound Recheck Stated Complaint: SUTURE REMOVAL Source: patient Exam Limitations: no limitations Vital Signs & Intake/Output Vital Signs & Intake/Output Vital Signs Date Time Temp Pulse Resp B/P B/P Pulse O2 O2 Flow FiO2 Mean Ox Delivery Rate 02/08 1405 99.2 85 18 124/72 97 Room Air Allergies Coded Allergies: codeine (Mild, SHAKES 07/09/17) Reconcile Medications Albuterol Sulfate (Ventolin Hfa) 90 MCG HFA.AER.AD 2 PUF INH Q4-6 PRN PRN SHORTNESS OF BREATH Ampicillin Sodium 2 GRAM VIAL 2 G IV DAILY OSTEOMYLELITIS UNTIL November Aspirin (Aspirin*) 81 MG TAB.CHEW 81 MG PO DAILY heart health Ciprofloxacin HCl 250 MG TABLET 750 MG PO Q12 OSTEOMYELITIS UNTIL DECEMBER 05, 2017 Enoxaparin Sodium (Lovenox) 100 MG/ML SYRINGE 100 MG SC DAILY dvt Gabapentin (Neurontin) 300 MG CAPSULE 1 CAP PO TID NERVE PAIN (Reported) Mometasone/Formoterol (Dulera 200 Mcg/5 Mcg Inhaler) 200 MCG-5 MCG/ACTUATION HFA.AER.AD 2 PUF INH BID ASTHMA (Reported) Multiple Vitamin (Multivitamins) 1 EACH TABLET 1 TAB PO DAILY SUPPLEMENT ( Reported) Omeprazole 20 MG CAPSULE.DR 40 MG PO DAILY AC GI BLEED Oxycodone HCl/Acetaminophen (Percocet 5-325 MG Tablet) 5 MG-325 MG TABLET 1 TAB PO 4 TIMES/DAY PRN PAIN Pravastatin Sodium 20 MG TABLET 1 TAB PO DAILY HLD (Reported) Ranitidine HCl 300 MG TABLET 1 TAB PO QPM GI (Reported) Triage Note: HERE FOR SUTURE REMOVAL T0 R LOWER LEG (13) PLACED ON 02/23, AREA RED, SLIGHTLY SWOLLEN. Triage Nurses Notes Reviewed? yes Onset: Abrupt Duration: day(s): Timing: recent history HPI: 62-year-old male comes into the emergency room for suture removal to right leg. Denies any redness or discharge fever chills. Sutures are been in for about 2 weeks. Comes in for suture removal. (Vivek Alanis) Past History Travel History Traveled to [place] past 21 day No Medical History Any Pertinent Medical History? see below for history Neurological: peripheral neuropathy EENT: NONE Cardiovascular: hyperlipidemia, myocardial infarction, PVD Respiratory: asthma Gastrointestinal: lower GI bleed Hepatic: NONE Renal: NONE Musculoskeletal: NONE Psychiatric: alcohol dependence Endocrine: NONE Blood Disorders: DVT Cancer(s): NONE SALES REPRESENTATIVE HEALTH INSURANCE/Reproductive: NONE History of MRSA: No History of VRE: No History of CDIFF: No Tetanus Vaccine: 09/17/17 Surgical History Surgical History: fasciotomy, thrombectomy left above the knee amputation (06/13) Psychosocial History Who do you live with Patient/Self Services at Home Nursing What is your primary language Bhutanese Tobacco Use: Current Daily Use Daily Tobacco Use Amount/Type: => 5 Cigarettes daily ETOH Use: occasional use Family History Family History, If Any: MOTHER (HEART CONDITION). , Age 62. FATHER (HEART CONDITION). , Age 60+. Hx Contributory? No (Vivek Alanis) Review of Systems Review of Systems Constitutional: Reports: no symptoms. EENTM: Reports: no symptoms. Respiratory: Reports: no symptoms. Cardiovascular: Reports: no symptoms. GI: Reports: no symptoms. Genitourinary: Reports: no symptoms. Musculoskeletal: Reports: no symptoms. Skin: Reports: see HPI. Neurological/Psychological: Reports: no symptoms. Hematologic/Endocrine: Reports: no symptoms. Immunologic/Allergic: Reports: no symptoms. All Other Systems: Reviewed and Negative (Vivek Alanis) Physical Exam Physical Exam General Appearance: well developed/nourished Head: atraumatic Eyes: Bilateral: normal appearance. Ears, Nose, Throat: normal ENT inspection, hearing grossly normal Neck: normal inspection Respiratory: no respiratory distress Back: normal inspection Extremities: SUTURE RIGHT LEG, NO ERYTHEMA, NO DISCHARGE Neurologic/Psych: awake, alert, oriented x 3, normal mood/affect Skin: intact, normal color, warm/dry (Vivek Alanis) Progress Differential Diagnosis: abscess, cellulitis, joint infection, tenosysnovitis Plan of Care: 02/08/2018 4:19:50 PM All sutures removed. Return if any other concerns worsening symptoms. (Vivek Alanis) Departure Departure Disposition: HOME OR SELF CARE Condition: Stable Clinical Impression Primary Impression: Visit for suture removal Referrals: Zbigniew Cheng APRN (PCP/Family) Additional Instructions: keep covered with neosporin. watch for signs of infection. redness/discharge. Departure Forms: Customer Survey General Discharge Information (Vivek Alanis) PA/MA[employer]FTSM[employer] Co-Sign Statement Statement: ED Attending supervision documentation- [] I saw and evaluated the patient. I have also reviewed all the pertinent lab results and diagnostic results. I agree with the findings and the plan of care as documented in the PA's/MASTER CRAFTSMAN's documentation. [X] I have reviewed the ED Record and agree with the PA's/MASTER CRAFTSMAN's documentation. [] Additions or exceptions (if any) to the PAs/MASTER CRAFTSMAN's note and plan are summarized below: [] (Ed Pa DO
== END 2018-02-08 14:22 ==
LOC: ERH 14:00
DX: Z48.02 Encounter for removal of sutures (principal)